=== PATIENT | male | born 1955 | race Caucasian/White ===

== ENCOUNTER 2018-01-20 13:55 | Inpatient (IN) ==
--- NOTE | 2018-01-20 14:37 | Emergency Department Note ---
Disposition Clinical Impression: Osteomyelitis of right foot Qualifiers: Osteomyelitis type: unspecified type Qualified Code(s): M86.9 - Osteomyelitis, unspecified Disposition: Admitted As Inpatient Condition: Fair General Adult HPI - General Chief complaint: ED Skin/Abscess/Foreign Body Stated complaint: Right ankle ulcer Time Seen by Provider: 01/20/18 14:00 - History of Present Illness Pain Scale: 10 - Related Data Home Medications Medication Instructions Recorded Confirmed Amlodipine Besylate [Amlodipine 10 mg PO DAILY 07/11/17 01/20/18 Besylate] Aspirin 81 mg PO DAILY 07/11/17 01/20/18 Atorvastatin Calcium [Atorvastatin 40 mg PO HS 07/11/17 01/20/18 Calcium] Clopidogrel [Plavix] 75 mg PO DAILY 07/11/17 01/20/18 EPINEPHrine [Epipen] 0.3 mg IJ ONCE PRN 07/11/17 01/20/18 Fluticasone/Salmeterol [Advair Hfa 2 puff IH BID 07/11/17 01/20/18 230-21 Mcg Inhaler] Folic Acid [Folic Acid] 1 mg PO DAILY 07/11/17 01/20/18 Gabapentin [Neurontin] 800 mg PO QID 07/11/17 01/20/18 Insulin Human Regular [HumuLIN R] 100 unit IJ TID 07/11/17 01/20/18 Metoprolol XL (24 HR) Succ [Toprol 50 mg PO DAILY 07/11/17 01/20/18 XL] Nitroglycerin [Nitrostat] 0.4 mg SL Q5M PRN 07/11/17 01/20/18 Omeprazole [PriLOSEC] 20 mg PO DAILY 07/11/17 01/20/18 Oxygen 2 l NS HS 07/11/17 01/20/18 Potassium Chloride [Klor-Con 10] 10 meq PO DAILY 07/11/17 01/20/18 Tiotropium [Spiriva] 1 puff IH DAILY 07/11/17 01/20/18 Bisacodyl [Woman's Laxative] 5 - 20 mg PO HS PRN 01/20/18 01/20/18 Empagliflozin [Jardiance] 10 mg PO DAILY 01/20/18 01/20/18 FLUoxetine HCl [PROzac] 60 mg PO DAILY 01/20/18 01/20/18 Furosemide [Lasix] 120 mg PO DAILY 01/20/18 01/20/18 Montelukast [Singulair] 10 mg PO DAILY 01/20/18 01/20/18 Morphine Sulfate/Naltrexone 1 cap PO BID 01/20/18 01/20/18 [Embeda ER 80-3.2 mg Capsule] Pramlintide Acetate [Symlinpen 120] 120 mg IJ TID 01/20/18 01/20/18 Allergies Allergy/AdvReac Type Severity Reaction Status Date / Time dapagliflozin [From [facility]] Allergy Hives Verified 01/20/18 19:08 naphazoline Allergy Hives Verified 01/20/18 19:08 cath DYE Allergy Hives Uncoded 01/20/18 19:08 Past Medical History - Past Medical History Medical history: Reports: arthritis, asthma, COPD, diabetes, GERD, hyperlipidemia, other Surgical history: Reports: appendectomy, cataract, cholecystectomy, coronary bypass (CABG), herniorrhaphy Psychiatric history: Reports: depression - Social History Smoking Status: Never smoker Smokeless Tobacco Status: No Alcohol use: Reports: none Drug use: Reports: none Course Vital Signs Temperature 98.4 F 01/20/18 13:57 Pulse Rate 86 01/20/18 13:57 Respiratory Rate 16 01/20/18 13:57 Blood Pressure 132/69 01/20/18 13:57 O2 Sat by Pulse Oximetry 96 01/20/18 13:57 Temperature 98.4 F 01/20/18 13:58 Pulse Rate 80 01/20/18 19:37 Respiratory Rate 16 01/20/18 20:14 Blood Pressure 135/66 01/20/18 20:14 O2 Sat by Pulse Oximetry 96 01/20/18 19:37 Oxygen Delivery Oxygen Delivery Room Air Medical Decision Making - Lab Data Result diagrams: 01/20/18 14:34 01/20/18 14:34 Lab Results 01/20/18 01/20/18 01/20/18 Range/Units 14:34 14:34 14:34 WBC 9.8 (4.3-11.1) K/mcL RBC 4.31 (4.19-5.50) M/mcL Hgb 11.9 L (12.9-16.9) g/dL Hct 36.8 L (37.5-50.1) % MCV 85.4 (83.0-100.0) fL MCH 27.6 L (28.0-33.3) pg MCHC 32.3 (31.6-35.5) g/dL RDW 15.5 H (11.5-14.5) % Plt Count 284 (140-400) K/mcL MPV 11.2 (9.4-12.4) fL Immature Gran % 0.7 (0-4) % Seg Neutrophils % 61.5 % Lymphocytes % 20.1 % Monocytes % 10.6 % Eosinophils % 6.0 % Basophils % 1.1 % Neutrophils # 6.1 (1.6-8.9) K/mcL Lymphocytes # 2.0 (0.6-4.6) K/mcL Monocytes # 1.0 (0.0-1.3) K/mcL Eosinophils # 0.6 (0.0-0.6) K/mcL Basophils # 0.1 (0.0-0.2) K/mcL ESR >= 130 H (0-10) mm/hr Sodium 133 L (136-145) mEq/L Potassium 3.6 (3.5-5.1) mEq/L Chloride 98 (98-107) mEq/L Carbon Dioxide 25 (23-29) mEq/L BUN 7 L (8-23) mg/dL Creatinine 0.85 (0.70-1.30) mg/dL Est GFR ( Amer) > 60 (> 60) Est GFR (Non-Af Amer) > 60 (> 60) BUN/Creatinine Ratio 8 (6-26) Glucose 110 H (70-105) mg/dL Calculated Osmolality 275 L (280-300) Calcium 8.8 (8.6-10.3) mg/dL Total Bilirubin 0.4 (0.3-1.0) mg/dL AST 19 (13-39) Units/L ALT 14 (7-52) Units/L Alkaline Phosphatase 122 H (34-104) Units/L C-Reactive Protein 11 H (Less than 10) mg/L Serum Total Protein 7.8 (6.4-8.9) g/dL Albumin 3.3 L (3.5-5.7) g/dL Globulin 4.5 H (2.4-3.5) g/dL Albumin/Globulin Ratio 0.7 L (1.1-2.2) Attestation Statement - Attestation Attestation: I examined this patient and my medical decision-making was reviewed with the Resident Physician. I agree with the documented findings, disposition and treatment plan as described except to the extent set forth below. Patient presents to the ED with right ankle wound. Patient sees Dr. Tanner for his Charcot foot. He was placed in a cast to try to straighten the foot and developed an ulcer on his right lateral ankle about 4 weeks ago. Yesterday his home health nurse noticed some green drainage. She called the liner machine operator who recommended him to come to the ED. On examination he has some mild erythema over the lateral mouth the right ankle. I do not appreciate any drainage. There is an area approximately 2 cm that is an open ulceration. Plan. Culture sent. Basic labs including a sedimentation rate with basic x-ray. The patient's workup reveals an osteomyelitis with elevated sedimentation rate. He is given antibiotics. Podiatry has been consult and he is admitted to medicine.
[2018-01-20 14:56] LABS: Basophils # 0.1 K/mcL (0.0-0.2); Basophils % 1.1 %; Eosinophils # 0.6 K/mcL (0.0-0.6); Hematocrit 36.8 % (37.5-50.1); Hemoglobin 11.9 g/dL (12.9-16.9); Immature Granulocytes % 0.7 % (0-4); Lymphocytes % 20.1 %; Mean Corpuscular HGB Conc 32.3 g/dL (31.6-35.5); Mean Corpuscular Hemoglobin 27.6 pg (28.0-33.3); Mean Corpuscular Volume 85.4 fL (83.0-100.0); Mean Platelet Volume 11.2 fL (9.4-12.4); Monocytes % 10.6 %; Neutrophils # 6.1 K/mcL (1.6-8.9); Platelet Count 284 K/mcL (140-400); Red Blood Count 4.31 M/mcL (4.19-5.50); Red Cell Distribution Width 15.5 % (11.5-14.5); Segmented Neutrophils % 61.5 %
[2018-01-20 15:52] LABS: C-Reactive Protein 11 mg/L (Less than 10)
[2018-01-20] MEDS ORDERED: Cefepime HCl 2,000 MG in Water for inj. (sterile) 20 ML 20 ML IVP STA (17:46)
[2018-01-20] MEDS ORDERED: Naloxone 0.4 MG/ML INJ IVP PRN (19:35)
[2018-01-20] MEDS ORDERED: Acetaminophen 325 MG TABLET PO PRN (19:35)
[2018-01-20] MEDS ORDERED: *HR* Dextrose 50 % in Water (Syg) 50 ML SYRINGE IVP PRN (19:39)
[2018-01-20] MEDS ORDERED: D5% in Water 1,000 ML IVC PRN (19:39)
[2018-01-20] MEDS ORDERED: Dextrose Gel 15 GM/37.5 ML TUBE PO PRN ×2 (19:39)
[2018-01-20 19:49] LABS: Alanine Aminotransferase 14 Units/L (7-52); Albumin 3.3 g/dL (3.5-5.7); Albumin/Globulin Ratio 0.7 (1.1-2.2); Alkaline Phosphatase 122 Units/L (34-104); Aspartate Amino Transferase 19 Units/L (13-39); BUN/Creatinine Ratio 8 (6-26); Bilirubin,Total 0.4 mg/dL (0.3-1.0); Blood Urea Nitrogen 7 mg/dL (8-23); Calcium 8.8 mg/dL (8.6-10.3); Carbon Dioxide 25 mEq/L (23-29); Chloride 98 mEq/L (98-107); Globulin 4.5 g/dL (2.4-3.5); Glucose 110 mg/dL (70-105); Osmolality,Calculated 275 (280-300); Potassium 3.6 mEq/L (3.5-5.1); Sodium 133 mEq/L (136-145); Total Protein 7.8 g/dL (6.4-8.9); eGFR For African Americans > 60 (> 60); eGFR For Non-African Americans > 60 (> 60)
--- NOTE | 2018-01-20 19:50 | Internal Med History&Physical ---
Date of Encounter: 01/20/18 Time of Encounter: 19:00 Internal Medicine - H&P: HPI Chief complaint: Right ankle wound Admitted From: Home Plans for Post Hospital Care: Home History of present illness: Mr. Newsome is a 62 year old male presented to ER for right ankle wound. Past medical history is significant for diabetes, diabetic neuropathy, charcot ankle , hypertension, CAD S/P CABG, BROCK on CPAP at home. Patient has diabetic neuropathy. He has found the right ankle wound since 4 weeks ago. The wound is getting worse and the patient feels pain. Patient followed up with podiatry as outpatient. Patient has noticed there is greenish discharge from the ruptured skin. Patient denies fever, chills. He has mild nausea but no vomiting. Patient called his mixer blender and was advised that to come to ER for further evaluation. In the emergency room, MRI shows osteomyelitis and cellulitis. Patient was admitted for further management. Past Med Surg Social Fam HX - Past Medical History Medical history: arthritis, asthma, COPD, diabetes, GERD, hyperlipidemia, other Additional medical history: BROCK. DJD Psychiatric history: depression - Past Surgical History Surgical History: appendectomy, cataract, cholecystectomy, coronary bypass (CABG ), herniorrhaphy Additional surgical history: Knee surgery. - Social History Smoking Status: Never smoker Smokeless Tobacco Status: No Alcohol use: none Drug use: none - Family History Mother History Unknown: Yes Internal Medicine - H&P: Meds Amlodipine Besylate [Amlodipine Besylate] 10 mg PO DAILY 07/11/17 [History] Aspirin 81 mg PO DAILY 07/11/17 [History] Atorvastatin Calcium [Atorvastatin Calcium] 80 mg PO HS 07/11/17 [History] Clopidogrel [Plavix] 75 mg PO DAILY 07/11/17 [History] EPINEPHrine [Epipen] 0.3 mg IJ ONCE PRN 07/11/17 [History] Fluticasone/Salmeterol [Advair Hfa 230-21 Mcg Inhaler] 2 puff IH BID 07/11/17 [ History] Folic Acid [Folic Acid] 1 mg PO DAILY 07/11/17 [History] Gabapentin [Neurontin] 800 mg PO QID 07/11/17 [History] Insulin DETEMIR [Levemir] 30 unit SQ TID 07/11/17 [History] Insulin Human Regular [HumuLIN R] 100 unit IJ TID 07/11/17 [History] Metoprolol XL (24 HR) Succ [Toprol XL] 50 mg PO DAILY 07/11/17 [History] Nitroglycerin [Nitrostat] 0.4 mg SL Q5M PRN 07/11/17 [History] Omeprazole [PriLOSEC] 20 mg PO DAILY 07/11/17 [History] Oxygen 2 l NS HS 07/11/17 [History] Potassium Chloride [Klor-Con 10] 10 meq PO DAILY 07/11/17 [History] Tiotropium [Spiriva] 1 puff IH 0700 07/11/17 [History] 3 Allergy/AdvReac Type Severity Reaction Status Date / Time dapagliflozin [From [facility]] Allergy Hives Verified 01/20/18 19:08 naphazoline Allergy Hives Verified 01/20/18 19:08 cath DYE Allergy Hives Uncoded 01/20/18 19:08 All Systems PM: A 10-system review of systems was performed and is negative for pertinent findings except as documented above in the HPI. - Constitutional Vitals: Temp Pulse Resp BP Pulse Ox 98.4 F 94 16 132/92 96 01/20/18 13:58 01/20/18 15:58 01/20/18 15:58 01/20/18 15:58 01/20/18 15:58 General appearance: Present: A&O X 3, no acute distress, answers questions appropriately - Head Head exam: Present: atraumatic, normocephalic - Eye Eye exam: Present: PERRL, conjuntiva pink, sclera anicteric Pupils: Present: PERRL - Neck Neck exam general surgery: Present: supple, trachea midline. Absent: lymphadenopathy - Respiratory Respiratory exam: Present: CTAB. Absent: accessory muscle use, rales, rhonchi, wheezes - Cardiovascular Cardiovascular exam: Present: RRR, +S1, +S2. Absent: diastolic murmur, gallop, rubs, systolic murmur - GI/Abdominal GI/Abdominal exam: Present: normal bowel sounds, soft, no peritoneal signs. Absent: distended, tenderness - Extremities Exam Extremities exam: Present: warm, radial pulses palpable and symmetrical. Absent : calf tenderness, cyanotic, pedal edema Additional comments: Right ankle wound on the lateral side with surrounding skin redness. - Neurological Exam Neurological exam: Present: CN II-XII intact, oriented X3, no focal deficits. Absent: pronater drift, facial droop, speech deficit - Skin Skin exam: Present: dry, intact Internal Med - H&P Results - Labs CBC & Chem 7: 01/20/18 14:34 01/20/18 14:34 - Assessment and plan (1) Cellulitis Current Visit: Yes Status: Acute Assessment and plan: Patient has cellulitis on right ankle. MRI has been done shows no drainable abscess. Patient reported greenish discharge. - Treat patient with IV vancomycin and cefepime. - Podiatry consult for wound care Qualifiers: Site of cellulitis: extremity Site of cellulitis of extremity: lower extremity Laterality: right Qualified Code(s): L03.115 - Cellulitis of right lower limb (2) Osteomyelitis Current Visit: Yes Status: Acute Assessment and plan: Patient has elevated CRP and ESR. MRI has been done shows osteomyelitis. - Place patient on antibiotic with Vanco and cefepime - Follow up blood culture and wound culture results - Podiatry consult on case Qualifiers: Osteomyelitis type: subacute Osteomyelitis location: ankle Laterality: right Qualified Code(s): M86.271 - Subacute osteomyelitis, right ankle and foot (3) Diabetes mellitus Current Visit: Yes Status: Acute Assessment and plan: Cover patient with basal and sliding scale insulin. Closely monitor glucose level. 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 Closely monitor BP. Qualifiers: Hypertension type: essential hypertension Qualified Code(s): I10 - Essential (primary) hypertension (5) CAD (coronary artery disease) Current Visit: Yes Status: Acute Assessment and plan: Continue home medications aspirin, Plavix, beta aubree, and statin. NTG sublingual when necessary for chest pain Qualifiers: Coronary Disease-Associated Artery/Lesion type: bypass graft [place] vs. transplanted heart: [place] heart Associated angina: without angina Qualified Code(s): I25.810 - Atherosclerosis of coronary artery bypass graft(s) without angina pectoris (6) Asthma Current Visit: Yes Status: Acute Assessment and plan: Patient has no wheezing at this point. Continue home medication Advair discus. Qualifiers: Asthma severity: mild Asthma persistence: intermittent Asthma complication type: with acute exacerbation Qualified Code(s): J45.21 - Mild intermittent asthma with (acute) exacerbation (7) BROCK (obstructive sleep apnea) Current Visit: Yes Status: Acute Assessment and plan: Continue CPAP during night (8) DVT prophylaxis Current Visit: Yes Status: Acute Assessment and plan: Heparin subcutaneously - Time Spent With Patient Total time spent is greater than 50% in coordination of care (as documented) at patient's floor/unit and/or counseling patient: 40 minutes Greater than 35 minutes
--- NOTE | 2018-01-20 20:13 | Emergency Department Note ---
Disposition Clinical Impression: Osteomyelitis of right foot Qualifiers: Osteomyelitis type: unspecified type Qualified Code(s): M86.9 - Osteomyelitis, unspecified Disposition: Admitted As Inpatient Condition: Fair Time of Disposition: 20:14 General Adult HPI - General Chief complaint: ED Skin/Abscess/Foreign Body Stated complaint: Right ankle ulcer Time Seen by Provider: 01/20/18 14:00 Source: patient Mode of arrival: wheelchair Limitations: no limitations Nursing Notes Reviewed: Yes Vital Signs Reviewed: Yes - History of Present Illness HPI Narrative: Patient is a 62-year-old male with a past medical history of Charcot disease of the foot presents for evaluation of worsening ulcer with discharge. The patient states that the ulcer began 4 weeks ago due to him wearing a brace for his disease. He states that last night the ulcer that he has on the lateral aspect of his right ankle began having a green discharge. States that his home health nurse reported this to his computer specialist and they recommended he come in for evaluation in the emergency department. The patient states that there is also surrounding redness to his ankle that has been worsening over the past 2 days. Pain Scale: 10 - Related Data Home Medications Medication Instructions Recorded Confirmed Amlodipine Besylate [Amlodipine 10 mg PO DAILY 07/11/17 07/11/17 Besylate] Aspirin 81 mg PO DAILY 07/11/17 07/11/17 Atorvastatin Calcium [Atorvastatin 80 mg PO HS 07/11/17 07/11/17 Calcium] Clopidogrel [Plavix] 75 mg PO DAILY 07/11/17 07/11/17 EPINEPHrine [Epipen] 0.3 mg IJ ONCE PRN 07/11/17 07/11/17 Fluticasone/Salmeterol [Advair Hfa 2 puff IH BID 07/11/17 07/11/17 230-21 Mcg Inhaler] Folic Acid [Folic Acid] 1 mg PO DAILY 07/11/17 07/11/17 Gabapentin [Neurontin] 800 mg PO QID 07/11/17 07/11/17 Insulin DETEMIR [Levemir] 30 unit SQ TID 07/11/17 Insulin Human Regular [HumuLIN R] 100 unit IJ TID 07/11/17 Metoprolol XL (24 HR) Succ [Toprol 50 mg PO DAILY 07/11/17 07/11/17 XL] Nitroglycerin [Nitrostat] 0.4 mg SL Q5M PRN 07/11/17 07/11/17 Omeprazole [PriLOSEC] 20 mg PO DAILY 07/11/17 07/11/17 Oxygen 2 l NS HS 07/11/17 07/11/17 Potassium Chloride [Klor-Con 10] 10 meq PO DAILY 07/11/17 07/11/17 Tiotropium [Spiriva] 1 puff IH 0700 07/11/17 07/11/17 Allergies Allergy/AdvReac Type Severity Reaction Status Date / Time dapagliflozin [From [facility]] Allergy Hives Verified 01/20/18 19:08 naphazoline Allergy Hives Verified 01/20/18 19:08 cath DYE Allergy Hives Uncoded 01/20/18 19:08 All systems ED: reviewed and negative except as stated. Review of Systems: As Per HPI Constitutional: Denies: fever, chills Gastrointestinal: Reports: nausea. Denies: abdominal pain, vomiting Integumentary: Reports: rash, lesions Past Medical History - Past Medical History Attestation: Yes The following information was validated with the patient. Medical history: Reports: arthritis, asthma, COPD, diabetes, GERD, hyperlipidemia, other Surgical history: Reports: appendectomy, cataract, cholecystectomy, coronary bypass (CABG), herniorrhaphy Psychiatric history: Reports: depression - Social History Smoking Status: Never smoker Smokeless Tobacco Status: No Alcohol use: Reports: none Drug use: Reports: none Physical Exam CONSTITUTIONAL: Alert and oriented X3, well-nourished, well appearing, in no apparent distress HEAD: Normocephalic; atraumatic. EYES: PERRL, no scleral icterus. NOSE: The nose is normal in appearance without rhinorrhea RESP: Normal chest excursion with respiration; breath sounds clear and equal bilaterally; no wheezes, rhonchi, or rales CARD: Regular rhythm, without murmurs, rub or gallop ABD: Non-distended; non-tender, soft,without rigidity, rebound or guarding SKIN: Normal for age and race; warm and dry; no apparent lesions. Patient has a 2 x 3 cm ulcerated lesion on his right lateral ankle below the malleolus. There is no discharge present at this time on exam. Does not directly appear to be infected, however he does have a surrounding erythema goes from the lateral aspect of the ankle to the medial aspect. No crepitance. - General Limitations: no limitations General appearance: alert Course Course Narrative: This is a patient underwent a foot x-ray which was not definitive for cellulitis , so MRI was ordered which was positive for osteomyelitis. The patient did have elevated inflammatory markers without a significant leukocytosis. The patient's case was discussed with Dr. Mccormack, the computer specialist on-call, and he agreed with the current plan of IV antibiotics and admission given the patient' s new findings of osteomyelitis. Also requested blood cultures be drawn. Discussed that we have already sent blood cultures of the foot. He agrees with this plan and states he will see the patient in the morning. Vital Signs Temperature 98.4 F 01/20/18 13:57 Pulse Rate 86 01/20/18 13:57 Respiratory Rate 16 01/20/18 13:57 Blood Pressure 132/69 01/20/18 13:57 O2 Sat by Pulse Oximetry 96 01/20/18 13:57 Temperature 98.4 F 01/20/18 13:58 Pulse Rate 80 01/20/18 19:37 Respiratory Rate 16 01/20/18 19:37 Blood Pressure 137/69 01/20/18 19:37 O2 Sat by Pulse Oximetry 96 01/20/18 19:37 Oxygen Delivery Oxygen Delivery Room Air Medical Decision Making - Medical Records Medical records reviewed: Yes I reviewed the patient's medical records. - Lab Data Lab results reviewed: Yes I reviewed the patient's lab results. Result diagrams: 01/20/18 14:34 01/20/18 14:34 Lab Results 01/20/18 01/20/18 01/20/18 Range/Units 14:34 14:34 14:34 WBC 9.8 (4.3-11.1) K/mcL RBC 4.31 (4.19-5.50) M/mcL Hgb 11.9 L (12.9-16.9) g/dL Hct 36.8 L (37.5-50.1) % MCV 85.4 (83.0-100.0) fL MCH 27.6 L (28.0-33.3) pg MCHC 32.3 (31.6-35.5) g/dL RDW 15.5 H (11.5-14.5) % Plt Count 284 (140-400) K/mcL MPV 11.2 (9.4-12.4) fL Immature Gran % 0.7 (0-4) % Seg Neutrophils % 61.5 % Lymphocytes % 20.1 % Monocytes % 10.6 % Eosinophils % 6.0 % Basophils % 1.1 % Neutrophils # 6.1 (1.6-8.9) K/mcL Lymphocytes # 2.0 (0.6-4.6) K/mcL Monocytes # 1.0 (0.0-1.3) K/mcL Eosinophils # 0.6 (0.0-0.6) K/mcL Basophils # 0.1 (0.0-0.2) K/mcL ESR >= 130 H (0-10) mm/hr Sodium 133 L (136-145) mEq/L Potassium 3.6 (3.5-5.1) mEq/L Chloride 98 (98-107) mEq/L Carbon Dioxide 25 (23-29) mEq/L BUN 7 L (8-23) mg/dL Creatinine 0.85 (0.70-1.30) mg/dL Est GFR ( Amer) > 60 (> 60) Est GFR (Non-Af Amer) > 60 (> 60) BUN/Creatinine Ratio 8 (6-26) Glucose 110 H (70-105) mg/dL Calculated Osmolality 275 L (280-300) Calcium 8.8 (8.6-10.3) mg/dL Total Bilirubin 0.4 (0.3-1.0) mg/dL AST 19 (13-39) Units/L ALT 14 (7-52) Units/L Alkaline Phosphatase 122 H (34-104) Units/L C-Reactive Protein 11 H (Less than 10) mg/L Serum Total Protein 7.8 (6.4-8.9) g/dL Albumin 3.3 L (3.5-5.7) g/dL Globulin 4.5 H (2.4-3.5) g/dL Albumin/Globulin Ratio 0.7 L (1.1-2.2) - Radiology Data Radiology results reviewed: Yes I reviewed the patient's radiology results. Ankle X-Ray 01/20/18 14:26 IMPRESSION: Further mid and hindfoot collapse, with increased collapse of the talus with respect to the ankle joint, and marked widening of the ankle mortise secondary to this. There is also lucent change seen in the region of the cuboid. This could be related to progression of Charcot joint, though an underlying fracture or osteomyelitis in the midfoot, as well as involving the anterior aspect of the calcaneus or talus cannot be excluded. This would be best assessed with MR imaging. D/ / Walker Bernal MD / Walker Bernal MD Interpreting Provider: Walker Bernal MD Ankle MRI 01/20/18 15:48 IMPRESSION: Severe bony destruction and disorganization with loss of marrow signal and loss of corticomedullary differentiation throughout the talus, calcaneus, navicular, cuboid, and cuneiforms. Findings are compatible with Charcot joint with superimposed osteomyelitis. Overlying subcutaneous soft tissue edema without obvious drainable fluid collection. D/ / Mauricio Delacruz MD / Mauricio Delacruz MD Interpreting Provider: Mauricio Delacruz MD
[2018-01-20] MEDS ORDERED: Nitroglycerin 0.4 MG TAB.SUBL SL PRN (20:45)
[2018-01-20] MEDS ORDERED: Budesonide/Formoterol 160/4.5 MDI IH SCH (22:00)
[2018-01-20] MEDS: Insulin DETEMIR 100 UNIT/ML X5UNITS SQ SCH (22:34)
[2018-01-20] MEDS: Insulin LISPRO 300 UNITS/3 ML VIAL SQ SCH (22:35)
[2018-01-21] MEDS ORDERED: Cefepime HCl 2,000 MG in Water for inj. (sterile) 20 ML 20 ML IVP SCH
[2018-01-21 01:23] LABS: Basophils # 0.1 K/mcL (0.0-0.2); Basophils % 1.3 %; Eosinophils # 0.5 K/mcL (0.0-0.6); Eosinophils % 5.7 %; Hematocrit 37.9 % (37.5-50.1); Hemoglobin 12.2 g/dL (12.9-16.9); Immature Granulocytes % 0.7 % (0-4); Lymphocytes # 1.4 K/mcL (0.6-4.6); Lymphocytes % 15.6 %; Mean Corpuscular HGB Conc 32.2 g/dL (31.6-35.5); Mean Corpuscular Hemoglobin 27.4 pg (28.0-33.3); Mean Platelet Volume 10.8 fL (9.4-12.4); Monocytes # 0.8 K/mcL (0.0-1.3); Monocytes % 8.8 %; Neutrophils # 6.2 K/mcL (1.6-8.9); Platelet Count 266 K/mcL (140-400); Red Blood Count 4.46 M/mcL (4.19-5.50); Red Cell Distribution Width 15.5 % (11.5-14.5); Segmented Neutrophils % 67.9 %
[2018-01-21 01:39] LABS: BUN/Creatinine Ratio 11 (6-26); Blood Urea Nitrogen 8 mg/dL (8-23); Calcium 8.7 mg/dL (8.6-10.3); Carbon Dioxide 24 mEq/L (23-29); Chloride 101 mEq/L (98-107); Glucose 139 mg/dL (70-105); Osmolality,Calculated 279 (280-300); Potassium 3.9 mEq/L (3.5-5.1); Sodium 134 mEq/L (136-145); eGFR For African Americans > 60 (> 60); eGFR For Non-African Americans > 60 (> 60)
[2018-01-21] MEDS: Cefepime HCl 2,000 MG in Water for inj. (sterile) 20 ML 20 ML IVP SCH ×3 (02:53→17:53)
[2018-01-21] MEDS: *HR* Heparin 5,000 UNIT/ML VIAL SQ SCH ×2 (05:40→17:55)
[2018-01-21] MEDS ORDERED: Furosemide 40 MG TABLET PO SCH (09:00)
[2018-01-21] MEDS: Lactobacillus 1 EACH CAP.SPRINK PO SCH (09:21)
[2018-01-21] MEDS: Gabapentin 400 MG CAPSULE PO SCH ×4 (09:21→20:25)
[2018-01-21] MEDS: Folic Acid 1 MG TABLET PO SCH (09:21)
[2018-01-21] MEDS: Metoprolol XL (24 HR) Succ 50 MG TAB.ER.24H PO SCH (09:21)
[2018-01-21] MEDS: Insulin LISPRO 300 UNITS/3 ML VIAL SQ SCH ×4 (09:21→20:29)
[2018-01-21] MEDS: Aspirin 81 MG TAB.CHEW PO SCH (09:22)
[2018-01-21] MEDS: amLODIPine 5 MG TABLET PO SCH (09:22)
[2018-01-21] MEDS: Budesonide/Formoterol 160/4.5 MDI IH SCH ×2 (10:48→20:04)
--- NOTE | 2018-01-21 11:09 | Podiatry Progress Note ---
Date of Encounter: 01/21/18 Time of Encounter: 11:08 - Assessment and Plan (1) Cellulitis Current Visit: Yes Status: Acute Assessment: #1 Local cellulitis of the right foot associated with superficial ulceration lateral ankle #2 active Charcot arthropathy Eichholz class I #3 diabetes with marginal control Assessment: #1 Charcot neuroarthropathy active Eichholz class I with completely unstable ankle #2 localized cellulitis #3 graded with present about therapy local wound care compression elevation and strict nonweightbearing. Long discussion with the risks associated with Charcot arthropathy including limb loss #4 complete wound care daily. #5 continue intravenous antibiotics until Dr. Harrington can evaluate the patient in 48 hours Qualifiers: Site of cellulitis: extremity Site of cellulitis of extremity: lower extremity Laterality: right Qualified Code(s): L03.115 - Cellulitis of right lower limb Subjective Principal diagnosis: Ulceration lateral right ankle with localized cellulitis. Interval history: 62-year-old male known to me with history of Charcot arthropathy of the ankle completely unstable. Patient with recent development of ulcer lateral aspect of his right ankle last several weeks without penetration of the dermis. No fluctuance. Patient with no shortness of breath chest pain nausea vomiting, fever chills. No leukocytosis. MR concern for possible osteomyelitis. Changes consistent with advanced Charcot arthropathy versus infectious process which is unlikely since her is no direct extension clinically. Objective - Vital Signs Vital Signs: Vital Signs Temp Pulse Resp BP Pulse Ox 01/21/18 10:50 16 97 01/21/18 07:18 98.6 F 89 16 146/73 97 01/21/18 04:02 98.1 F 80 16 119/67 99 01/21/18 03:38 15 98 01/20/18 23:30 9 99 01/20/18 23:17 97.9 F 87 16 126/66 98 01/20/18 21:13 98.6 F 80 16 140/69 96 01/20/18 20:14 16 135/66 Intake and Output 01/20/18 01/21/18 01/21/18 23:59 07:59 15:59 Intake Total 1280 / 1280 Output Total 1100 / 1100 600 / 600 1300 / 1300 Balance -1080 / -1080 -580 / -580 - -20 Intake: IV Fluids Maxipime 2,000 MG In Water for inj. (sterile) 20 ML @ 300 mls/ hr IVP Q8H [facility] Rx#:[id number] Oral 1280 / 1280 Output: Urine 1100 / 1100 600 / 600 1300 / 1300 Other: Meal Breakfast Percent of Meal Consumed 50% # Voids 1 # Bowel Movements 2 Weight 138.2 kg Blood Glucose* 103 108 Patient Weight 01/21/18 23:59 Weight 138.2 kg - Exam Exam: Ulceration measuring approximately 3 cm x 3 cm x 0.2 cm deep. A percent granulation tissue 20% fibrin. No undermining no sinus tract or tunneling. No fluctuance. Periwound erythema with spreading cellulitis resolving. - Radiology X-Rays: image reviewed MRIs: image reviewed - Lab Result Diagrams: 01/21/18 01:08 01/21/18 01:08 Labs: Abnormal lab results Hgb 12.2 g/dL (12.9-16.9) L 01/21/18 01:08 MCH 27.4 pg (28.0-33.3) L 01/21/18 01:08 RDW 15.5 % (11.5-14.5) H 01/21/18 01:08 ESR >= 130 mm/hr (0-10) H 01/20/18 14:34 Sodium 134 mEq/L (136-145) L 01/21/18 01:08 Glucose 139 mg/dL (70-105) H 01/21/18 01:08 Calculated Osmolality 279 (280-300) L 01/21/18 01:08 Alkaline Phosphatase 122 Units/L (34-104) H 01/20/18 14:34 C-Reactive Protein 11 mg/L (Less than 10) H 01/20/18 14:34 Albumin 3.3 g/dL (3.5-5.7) L 01/20/18 14:34 Globulin 4.5 g/dL (2.4-3.5) H 01/20/18 14:34 Albumin/Globulin Ratio 0.7 (1.1-2.2) L 01/20/18 14:34 Consult Discharge Plan - Plan Referrals: Myron Henderson [Primary Care Provider] -
--- NOTE | 2018-01-21 15:52 | Internal Med Progress Note ---
Date of Encounter: 01/21/18 Time of Encounter: 15:48 - Assessment and plan (1) Osteomyelitis of right foot Current Visit: Yes Status: Acute Assessment and plan: MRI showed right foot osteomyelitis, on IV vancomycin and cefepime podiatriast is following Qualifiers: Osteomyelitis type: subacute Qualified Code(s): M86.271 - Subacute osteomyelitis, right ankle and foot (2) Cellulitis Current Visit: Yes Status: Acute Assessment and plan: continue IV vancomycin and cefepine Qualifiers: Site of cellulitis: extremity Site of cellulitis of extremity: lower extremity Laterality: right Qualified Code(s): L03.115 - Cellulitis of right lower limb (3) Diabetes mellitus Current Visit: Yes Status: Acute Assessment and plan: continue basal insulin and SSI Qualifiers: Diabetes mellitus type: type 2 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 insulin use: with long-term use Diabetes mellitus complication status: with neurologic complications Diabetes mellitus complication detail: with polyneuropathy Qualified Code(s): E11.42 - Type 2 diabetes mellitus with diabetic polyneuropathy; Z79.4 - 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 transplanted heart: [place] heart Associated angina: without angina Qualified Code(s): I25.810 - Atherosclerosis of coronary artery bypass graft(s) without angina pectoris (6) Asthma Current Visit: Yes Status: Chronic Assessment and plan: stable no wheezing Qualifiers: Asthma severity: mild Asthma persistence: intermittent Asthma complication type: with acute exacerbation Qualified Code(s): J45.21 - Mild intermittent asthma with (acute) exacerbation (7) BROCK (obstructive sleep apnea) Current Visit: Yes Status: Acute (8) DVT prophylaxis Current Visit: Yes Status: Acute Assessment and plan: heparin Sc - Time Spent With Patient Total time spent is greater than 50% in coordination of care (as documented) at patient's floor/unit and/or counseling patient: 25 - 35 minutes - Subjective Interval history: Mr. Newsome is a 62 year old male presented to ER for right ankle wound. Past medical history is significant for diabetes, diabetic neuropathy, charcot ankle , hypertension, CAD S/P CABG, BROCK on CPAP at home. Patient has diabetic neuropathy. He has found the right ankle wound since 4 weeks ago. The wound is getting worse and the patient feels pain. Patient followed up with podiatry as outpatient. , MRI shows osteomyelitis and cellulitis. Patient was admitted for further management. patient is doing ok, pain is well controlled, afebrile, right foot is still very swelling. 1.right ankle Charcot joint with superimposed osteomyelitis and cellulitis, continue vancomycin and cefepime, podiatry is on board 2. DM type 2 - Constitutional Vitals: Temp Pulse Resp BP Pulse Ox 97.9 F 85 16 146/72 95 01/21/18 11:20 01/21/18 11:20 01/21/18 11:20 01/21/18 11:20 01/21/18 11:20 General appearance: Present: A&O X 3, no acute distress, answers questions appropriately Exam: CONSTITUTIONAL: patient appears as an age appropriate male in no acute distress. EYES Clear sclerae, bilateral pupils are equal, reactive to light. EMOI. RESPIRATORY: No accessory muscle use, bilateral clear to auscultation, no wheezing, no crackles/rales. CARDIOVASCULAR: Regular heart rate, normal S1 and S2, no murmurs GASTROINTESTINAL: bowel sounds present, soft, no tenderness. MUSCULOSKELETAL: Joints in normal range of motion, no clubbing, ++ edema, no cyanosis. Bilateral peripheral pulses 2+. NEUROLOGIC: CN II to XII are grossly intact, no focal neurological deficit. Internal Medicine: Result - Labs CBC & Chem 7: 01/21/18 01:08 01/21/18 01:08 Labs: Short CBC 01/21/18 Range/Units 01:08 WBC 9.1 (4.3-11.1) K/mcL Hgb 12.2 L (12.9-16.9) g/dL Hct 37.9 (37.5-50.1) % Plt Count 266 (140-400) K/mcL Neutrophils # 6.2 (1.6-8.9) K/mcL BMP 01/21/18 01:08 Sodium 134 L Potassium 3.9 Chloride 101 Carbon Dioxide 24 BUN 8 Creatinine 0.75 Glucose 139 H Calcium 8.7 Consult Discharge Plan - Plan Referrals: Myron Henderson [Primary Care Provider] -
[2018-01-21] MEDS: Insulin DETEMIR 100 UNIT/ML X5UNITS SQ SCH (20:25)
[2018-01-21] MEDS: NALTREXONE PO SCH (22:24)
[2018-01-21] MEDS: MORPHINE PO SCH (22:24)
[2018-01-22] MEDS: Cefepime HCl 2,000 MG in Water for inj. (sterile) 20 ML 20 ML IVP SCH ×3 (02:10→16:32)
[2018-01-22] MEDS: *HR* Heparin 5,000 UNIT/ML VIAL SQ SCH ×2 (06:26→16:33)
[2018-01-22] MEDS: Budesonide/Formoterol 160/4.5 MDI IH SCH ×2 (07:39→20:28)
[2018-01-22] MEDS: Insulin LISPRO 300 UNITS/3 ML VIAL SQ SCH ×4 (08:52→20:37)
[2018-01-22] MEDS: Gabapentin 400 MG CAPSULE PO SCH ×4 (09:01→20:35)
[2018-01-22] MEDS: Metoprolol XL (24 HR) Succ 50 MG TAB.ER.24H PO SCH (09:01)
[2018-01-22] MEDS: Folic Acid 1 MG TABLET PO SCH (09:01)
[2018-01-22] MEDS: Lactobacillus 1 EACH CAP.SPRINK PO SCH (09:02)
[2018-01-22] MEDS: Aspirin 81 MG TAB.CHEW PO SCH (09:02)
[2018-01-22] MEDS: amLODIPine 5 MG TABLET PO SCH (09:02)
[2018-01-22] MEDS: NALTREXONE PO SCH ×2 (10:02→20:36)
[2018-01-22] MEDS: MORPHINE PO SCH ×2 (10:02→20:36)
--- NOTE | 2018-01-22 14:48 | Internal Med Progress Note ---
Date of Encounter: 01/22/18 Time of Encounter: 14:46 - Assessment and plan (1) Osteomyelitis of right foot Current Visit: Yes Status: Acute Assessment and plan: MRI showed right foot osteomyelitis, on IV vancomycin and cefepime marketing operations assistant is following Qualifiers: Osteomyelitis type: subacute Qualified Code(s): M86.271 - Subacute osteomyelitis, right ankle and foot (2) Cellulitis Current Visit: Yes Status: Acute Qualifiers: Site of cellulitis: extremity Site of cellulitis of extremity: lower extremity Laterality: right Qualified Code(s): L03.115 - Cellulitis of right lower limb (3) Diabetes mellitus Current Visit: Yes Status: Acute Assessment and plan: continue basal insulin and SSI Qualifiers: Diabetes mellitus type: type 2 Diabetes mellitus 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 home 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 transplanted heart: [place] heart Associated angina: without angina Qualified Code(s): I25.810 - Atherosclerosis of coronary artery bypass graft(s) without angina pectoris (6) Asthma Current Visit: Yes Status: Chronic Qualifiers: Asthma severity: mild Asthma persistence: intermittent Asthma complication type: with acute exacerbation Qualified Code(s): J45.21 - Mild intermittent asthma with (acute) exacerbation (7) BROCK (obstructive sleep apnea) Current Visit: Yes Status: Acute (8) DVT prophylaxis Current Visit: Yes Status: Acute (9) Morbid obesity Current Visit: Yes Status: Acute - Time Spent With Patient Total time spent is greater than 50% in coordination of care (as documented) at patient's floor/unit and/or counseling patient: - Subjective Interval history: Mr. Newsome is a 62 year old male presented to ER for right ankle wound. Past medical history is significant for diabetes, diabetic neuropathy, charcot ankle , hypertension, CAD S/P CABG, BROCK on CPAP at home. Patient has diabetic neuropathy. He has found the right ankle wound since 4 weeks ago. The wound is getting worse and the patient feels pain. Patient followed up with podiatry as outpatient. , MRI shows osteomyelitis and cellulitis. Patient was admitted for further management. patient is doing well, pain and swelling of right foot improved, afebrile. 1.right ankle Charcot joint with superimposed osteomyelitis and cellulitis, continue vancomycin and cefepime, podiatry is on board 2. DM type 2 - Constitutional Vitals: Temp Pulse Resp BP Pulse Ox 98.2 F 73 17 124/72 96 01/22/18 11:22 01/22/18 11:22 01/22/18 11:22 01/22/18 11:22 01/22/18 11:22 General appearance: Present: A&O X 3, no acute distress, answers questions appropriately Exam: CONSTITUTIONAL: patient appears as an age appropriate male in no acute distress. EYES Clear sclerae, bilateral pupils are equal, reactive to light. EMOI. RESPIRATORY: No accessory muscle use, bilateral clear to auscultation, no wheezing, no crackles/rales. CARDIOVASCULAR: Regular heart rate, normal S1 and S2, no murmurs GASTROINTESTINAL: bowel sounds present, soft, no tenderness. MUSCULOSKELETAL: Joints in normal range of motion, no clubbing, +edema, no cyanosis. Bilateral peripheral pulses 2+. NEUROLOGIC: CN II to XII are grossly intact, no focal neurological deficit. Internal Medicine: Result - Labs CBC & Chem 7: 01/21/18 01:08 01/21/18 01:08 Consult Discharge Plan - Plan Referrals: Myron Henderson [Primary Care Provider] -
[2018-01-22] MEDS: Insulin DETEMIR 100 UNIT/ML X5UNITS SQ SCH (20:36)
[2018-01-23] MEDS: Cefepime HCl 2,000 MG in Water for inj. (sterile) 20 ML 20 ML IVP SCH ×3 (02:18→17:38)
[2018-01-23 05:52] LABS: Basophils # 0.1 K/mcL (0.0-0.2); Basophils % 1.6 %; Eosinophils # 0.7 K/mcL (0.0-0.6); Eosinophils % 9.3 %; Hematocrit 36.9 % (37.5-50.1); Hemoglobin 11.6 g/dL (12.9-16.9); Immature Granulocytes % 0.4 % (0-4); Lymphocytes # 1.7 K/mcL (0.6-4.6); Lymphocytes % 20.9 %; Mean Corpuscular HGB Conc 31.4 g/dL (31.6-35.5); Mean Corpuscular Hemoglobin 26.5 pg (28.0-33.3); Mean Corpuscular Volume 84.4 fL (83.0-100.0); Monocytes # 0.9 K/mcL (0.0-1.3); Monocytes % 11.4 %; Neutrophils # 4.5 K/mcL (1.6-8.9); Platelet Count 271 K/mcL (140-400); Red Blood Count 4.37 M/mcL (4.19-5.50); Red Cell Distribution Width 15.9 % (11.5-14.5); Segmented Neutrophils % 56.4 %
[2018-01-23] MEDS: *HR* Heparin 5,000 UNIT/ML VIAL SQ SCH ×2 (05:54→17:38)
[2018-01-23 06:01] LABS: BUN/Creatinine Ratio 14 (6-26); Blood Urea Nitrogen 8 mg/dL (8-23); Calcium 8.6 mg/dL (8.6-10.3); Carbon Dioxide 26 mEq/L (23-29); Chloride 106 mEq/L (98-107); Glucose 121 mg/dL (70-105); Osmolality,Calculated 284 (280-300); Potassium 3.8 mEq/L (3.5-5.1); Sodium 137 mEq/L (136-145); eGFR For African Americans > 60 (> 60); eGFR For Non-African Americans > 60 (> 60)
[2018-01-23] MEDS: Budesonide/Formoterol 160/4.5 MDI IH SCH ×2 (07:53→22:43)
--- NOTE | 2018-01-23 08:16 | Podiatry Progress Note ---
Date of Encounter: 01/23/18 Time of Encounter: 08:14 - Assessment and Plan (1) Cellulitis Current Visit: Yes Status: Acute Assessment: #1 Local cellulitis of the right foot associated with superficial ulceration lateral ankle #2 active Charcot arthropathy Eichholz class I #3 diabetes with marginal control Assessment: #1 Charcot neuroarthropathy active Eichholz class I with completely unstable ankle #2 localized cellulitis #3 graded with present about therapy local wound care compression elevation and strict nonweightbearing. Long discussion with the risks associated with Charcot arthropathy including limb loss #4 complete wound care daily. #5 continue intravenous antibiotics until Dr. Harrington can evaluate the patient in 48 hours Assessment: #1 local cellulitis resolving the right ankle and foot. #2 Charcot arthropathy Eichholz class I Plan: #1 continue present intravenous antibiotics local wound care elevation compression #[address] Harrington evaluation for surgical intervention versus conservative compression therapy/casting, with strict nonweightbearing. Patient may need placement. Qualifiers: Site of cellulitis: extremity Site of cellulitis of extremity: lower extremity Laterality: right Qualified Code(s): L03.115 - Cellulitis of right lower limb Subjective Principal diagnosis: Ulceration lateral right ankle with localized cellulitis. Interval history: Patient with ongoing Charcot arthropathy active with right ankle with superficial wound over the lateral aspect of the malleolus. We see dramatic decrease the overall edema both lower extremities since the patient has been sedentary with legs elevated and getting appropriate antibiotics. We will await the opinion of Dr. Harrington as to the timing of possible reconstruction versus conservative measures. We will await his opinion. Objective - Vital Signs Vital Signs: Vital Signs Temp Pulse Resp BP Pulse Ox 01/23/18 07:53 15 95 01/23/18 06:30 97.7 F 86 15 138/79 95 01/23/18 04:18 12 94 01/23/18 00:34 97.9 F 84 14 136/75 94 01/23/18 00:01 17 100 01/22/18 20:31 16 93 01/22/18 19:01 98.9 F 70 16 117/77 98 01/22/18 16:51 67 116/67 01/22/18 15:40 98.3 F 82 18 100/49 92 01/22/18 11:22 98.2 F 73 17 124/72 96 Intake and Output 01/22/18 01/23/18 01/23/18 23:59 07:59 15:59 Intake Total 1020 / 1020 600 / 600 Output Total 1999 1470 / 1470 Balance -980 / -980 -870 / -870 Intake: IV Fluids Maxipime 2,000 MG In Water for inj. (sterile) 20 ML @ 300 mls/ hr IVP Q8H JIMMY Rx#:[id number] Oral 1000 / 1000 600 / 600 Output: Urine 1999 1470 / 1470 Other: # Voids 1 1 Weight 134.5 kg Blood Glucose* 186 108 - Exam Exam: Superficial ulceration the lateral aspect of the right ankle without evidence of undermining sinus tract or tunneling. No spreading cellulitis. Periwound erythema reducing dramatically. Wound is clean without clinical evidence of fluctuance necrosis ascending cellulitis or lymphangitis. We do observe obvious subluxation of the right ankle and collapse of the hindfoot only clinically but from radiographic standpoint. Incision: Present: healing, clean and dry - Lab Result Diagrams: 01/23/18 05:14 01/23/18 05:14 Labs: Abnormal lab results Hgb 11.6 g/dL (12.9-16.9) L 01/23/18 05:14 Hct 36.9 % (37.5-50.1) L 01/23/18 05:14 MCH 26.5 pg (28.0-33.3) L 01/23/18 05:14 MCHC 31.4 g/dL (31.6-35.5) L 01/23/18 05:14 RDW 15.9 % (11.5-14.5) H 01/23/18 05:14 Eosinophils # 0.7 K/mcL (0.0-0.6) H 01/23/18 05:14 ESR >= 130 mm/hr (0-10) H 01/20/18 14:34 Creatinine 0.58 mg/dL (0.70-1.30) L 01/23/18 05:14 Glucose 121 mg/dL (70-105) H 01/23/18 05:14 POC Glucose 186 mg/dL (70-99) H 01/22/18 19:41 Alkaline Phosphatase 122 Units/L (34-104) H 01/20/18 14:34 C-Reactive Protein 11 mg/L (Less than 10) H 01/20/18 14:34 Albumin 3.3 g/dL (3.5-5.7) L 01/20/18 14:34 Globulin 4.5 g/dL (2.4-3.5) H 01/20/18 14:34 Albumin/Globulin Ratio 0.7 (1.1-2.2) L 01/20/18 14:34 Vancomycin Trough 14 mcg/mL (5-10) H 01/22/18 06:45 Consult Discharge Plan - Plan Referrals: Myron Henderson [Primary Care Provider] -
[2018-01-23] MEDS: Insulin LISPRO 300 UNITS/3 ML VIAL SQ SCH ×4 (08:24→21:36)
[2018-01-23] MEDS: Gabapentin 400 MG CAPSULE PO SCH ×4 (09:53→21:35)
[2018-01-23] MEDS: Folic Acid 1 MG TABLET PO SCH (09:53)
[2018-01-23] MEDS: amLODIPine 5 MG TABLET PO SCH (09:53)
[2018-01-23] MEDS: Lactobacillus 1 EACH CAP.SPRINK PO SCH (09:53)
[2018-01-23] MEDS: NALTREXONE PO SCH ×2 (09:53→21:35)
[2018-01-23] MEDS: Metoprolol XL (24 HR) Succ 50 MG TAB.ER.24H PO SCH (09:53)
[2018-01-23] MEDS: Aspirin 81 MG TAB.CHEW PO SCH (09:53)
[2018-01-23] MEDS: MORPHINE PO SCH ×2 (09:53→21:35)
--- NOTE | 2018-01-23 10:28 | Internal Med Progress Note ---
Date of Encounter: 01/23/18 Time of Encounter: 10:25 - Assessment and plan (1) Osteomyelitis Current Visit: Yes Status: Acute Assessment and plan: Patient has elevated CRP and ESR. MRI has been done shows osteomyelitis. Wound cultures growing MRSA Continue antibiotics with Vanco and cefepime. Podiatry following and plan for possible debridement. ID consulted and recs appreciated Qualifiers: Osteomyelitis type: subacute Osteomyelitis location: ankle Laterality: right Qualified Code(s): M86.271 - Subacute osteomyelitis, right ankle and foot (2) Cellulitis Current Visit: Yes Status: Acute Assessment and plan: Patient has cellulitis on right ankle. MRI has been done shows no drainable abscess. Patient reported greenish discharge. - Treat patient with IV vancomycin and cefepime. - Podiatry consult for wound care Qualifiers: Site of cellulitis: extremity Site of cellulitis of extremity: lower extremity Laterality: right Qualified Code(s): L03.115 - Cellulitis of right lower limb (3) Diabetes mellitus Current Visit: Yes Status: Acute Assessment and plan: Cover patient with basal and sliding scale insulin. Closely monitor glucose level. 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 Closely monitor BP. Qualifiers: Hypertension type: essential hypertension Qualified Code(s): I10 - Essential (primary) hypertension (5) CAD (coronary artery disease) Current Visit: Yes Status: Chronic Assessment and plan: Continue home medications aspirin, Plavix, beta aubree, and statin. NTG sublingual when necessary for chest pain Qualifiers: Coronary Disease-Associated Artery/Lesion type: bypass graft [place] vs. transplanted heart: [place] heart Associated angina: without angina Qualified Code(s): I25.810 - Atherosclerosis of coronary artery bypass graft(s) without angina pectoris (6) Asthma Current Visit: Yes Status: Chronic Assessment and plan: Patient has no wheezing at this point. Continue home medication Advair discus. Qualifiers: Asthma severity: mild Asthma persistence: intermittent Asthma complication type: with acute exacerbation Qualified Code(s): J45.21 - Mild intermittent asthma with (acute) exacerbation (7) BROCK (obstructive sleep apnea) Current Visit: Yes Status: Acute Assessment and plan: Continue CPAP during night (8) DVT prophylaxis Current Visit: Yes Status: Acute Assessment and plan: Heparin subcutaneously - Time Spent With Patient Total time spent is greater than 50% in coordination of care (as documented) at patient's floor/unit and/or counseling patient: - Subjective Interval history: No acute events overnight - Constitutional Vitals: Temp Pulse Resp BP Pulse Ox 97.7 F 86 15 138/79 95 01/23/18 06:30 01/23/18 06:30 01/23/18 07:53 01/23/18 06:30 01/23/18 07:53 General appearance: Present: A&O X 3, no acute distress, answers questions appropriately - Head Head exam: Present: atraumatic, normocephalic - Eye Eye exam: Present: PERRL, conjuntiva pink, sclera anicteric Pupils: Present: PERRL - Neck Neck exam general surgery: Present: supple, trachea midline. Absent: lymphadenopathy - Respiratory Respiratory exam: Present: CTAB. Absent: accessory muscle use, rales, rhonchi, wheezes - Cardiovascular Cardiovascular exam: Present: RRR, +S1, +S2. Absent: diastolic murmur, gallop, rubs, systolic murmur - GI/Abdominal GI/Abdominal exam: Present: normal bowel sounds, soft, no peritoneal signs. Absent: distended, tenderness - Extremities Exam Extremities exam: Present: warm, radial pulses palpable and symmetrical. Absent : calf tenderness, cyanotic, pedal edema - Neurological Exam Neurological exam: Present: CN II-XII intact, oriented X3, no focal deficits. Absent: pronater drift, facial droop, speech deficit - Skin Skin exam: Present: dry, intact Internal Medicine: Result - Labs CBC & Chem 7: 01/23/18 05:14 01/23/18 05:14 Labs: Short CBC 01/23/18 Range/Units 05:14 WBC 8.0 (4.3-11.1) K/mcL Hgb 11.6 L (12.9-16.9) g/dL Hct 36.9 L (37.5-50.1) % Plt Count 271 (140-400) K/mcL Neutrophils # 4.5 (1.6-8.9) K/mcL BMP 01/23/18 05:14 Sodium 137 Potassium 3.8 Chloride 106 Carbon Dioxide 26 BUN 8 Creatinine 0.58 L Glucose 121 H Calcium 8.6 Cardiac Enzymes 01/22/18 01/22/18 01/23/18 Range/Units 17:18 23:14 05:14 Troponin I < 0.03 < 0.03 < 0.03 (< 0.04) ng/mL Consult Discharge Plan - Plan Referrals: Myron Henderson [Primary Care Provider] -
--- NOTE | 2018-01-23 16:32 | Electrocardiograph Report ---
[place] [id number] Test Date: 2018-01-22 Pat Name: Noe Newsome Department: 114 Room: [facility] Gender: M Inspector Filters: : 1955 Requested By: Sohail Deras Order Number: [id number] Reading MD: Aster Jean Measurements Intervals [place] Rate: 67 P: 79 WI: 254 QRS: 28 QRSD: 109 T: 86 QT: 416 QTc: 432 Interpretive Statements SINUS RHYTHM WITH FIRST DEGREE AV BLOCK NONSPECIFIC T-WAVE ABNORMALITY Electronically Signed On 01-23-2018 16:30:23 EDT by Aster Jean
[2018-01-23] MEDS ORDERED: Aminoglycoside Consult 1 EACH MC ONE (16:48)
--- NOTE | 2018-01-23 18:32 | Infectious Disease Consult ---
Date of Encounter: 01/23/18 Time of Encounter: 18:28 Assessment and Plan (1) Osteomyelitis of ankle, right, acute Status: Acute Assessment and plan: Causative organism MSSA Noted on MRI of the ankle on 01/[address] Mccormack's no Await Dr. Harrington recommendation Currently patient is on vancomycin and cefepime Cultures were obtained on 01/20 I will DC vancomycin and cefepime and start the patient on cefazolin and oral levofloxacin and metronidazole until cultures finalize If cultures do not grow gram negatives or pseudomonas or anaerobes I we will DC the oral levofloxacin and metronidazole Patient will need a midline placement. I will probably have to treat him with 6 weeks of IV antibiotics at least. I will not order it until I make sure that Dr. Harrington evaluates the patient and he is not planning any surgery We will manage labs and for drug toxicity (2) Charcot ankle Status: Acute Qualifiers: Laterality: right Qualified Code(s): M14.671 - Charcot's joint, right ankle and foot (3) Cellulitis Status: Acute Assessment and plan: Likely secondary to MSSA Qualifiers: Site of cellulitis: extremity Site of cellulitis of extremity: lower extremity Laterality: right Qualified Code(s): L03.115 - Cellulitis of right lower limb (4) Diabetes mellitus Status: Acute Qualifiers: Diabetes mellitus type: type 2 Diabetes mellitus shelter insulin use: with intermediate designer use Diabetes mellitus complication status: with neurologic complications Diabetes mellitus complication detail: with polyneuropathy Qualified Code(s): E11.42 - Type 2 diabetes mellitus with diabetic polyneuropathy; Z79.4 - long term (current) use of insulin (5) CAD (coronary artery disease) Status: Chronic Qualifiers: Coronary Disease-Associated Artery/Lesion type: bypass graft [place] vs. transplanted heart: [place] heart Associated angina: without angina Qualified Code(s): I25.810 - Atherosclerosis of coronary artery bypass graft(s) without angina pectoris (6) BROCK (obstructive sleep apnea) Status: Acute Infectious Disease HPI - Data of Consult Patient: new to practice Consult date: 01/23/18 Requesting Physician: Sohail Deras MD Primary Care Provider: Caio Henderson - Consult Narrative Reason for consult: osteomyelitis History of present illness: Mr. Newsome is a 62 year old male Patient is a 62-year-old gentleman who presented to [facility] and was admitted for right ankle wound on 01/20. We are consulted on 01/23 for osteomyelitis of the right foot. Patient is a pleasant 62-year-old gentleman who has a past medical history mentioned below including diabetes mellitus type 2, diabetic neuropathy, Charcot ankle, hypertension, coronary artery disease with history of CABG in the past and obstructive sleep apnea has been following wound care Dr. Harrington for quite some time for an ulceration on the right ankle. Patient tells me it was caused from his ankle rubbing on his boots. This started about 4 weeks prior. Patient was seen On 01/17, patient was seen by podiatry office for his Charcot joint of the right foot with the chronic ulcer. And at that time he was doing okay. Apparently after patient went home he noticed a greenish discharge from ruptured skin. Patient had no constitutional symptoms. Denied any fevers chills weight loss night sweats etc. Patient came into the emergency department for evaluation. Since admission, patient has been afebrile. Patient has not had any tachycardia. Presenting WBC was 9.8 thousand with normal differential. Patient s ESR on January 20 was over 130. Rest of the chemistry showed normal electrolytes and normal BUN and creatinine. Right ankle wound obtained on 01/20 grew MSSA. Blood cultures also obtained on 01/20 are no growth to date 2 out of 2 sets. Patient had an MRI of the ankle on 01/20 and it read severe bony destruction and disorganized patient with loss of marrow signal and loss of corticomedullary if her initiation throughout the talus, calcaneus, navicular, cuboid and cuneiforms. Findings are compatible with Charcot joint with super imposed osteomyelitis. Overlying subcutaneous soft tissue edema without obvious drainable fluid collection. CC: Sohail Deras MD Past Med Surg Social Fam HX - Past Medical History Medical history: arthritis, asthma, COPD, diabetes, GERD, hyperlipidemia, other Additional medical history: BROCK. DJD Psychiatric history: depression - Past Surgical History Surgical History: appendectomy, cataract, cholecystectomy, coronary bypass (CABG ), herniorrhaphy Additional surgical history: KNEE SURGERY - Social History Smoking Status: Never smoker Smokeless Tobacco Status: No Alcohol use: none Drug use: none - Family History Mother History Unknown: Yes Living Status: Age at : 71 Cause of : AR, CVA Hx Family Cardiac Disorders: Yes (CHF) Father Living Status: Age at : 71 Cause of : AR Infectious Disease-CN:Meds Amlodipine Besylate [Amlodipine Besylate] 10 mg PO DAILY 07/11/17 [History] Aspirin 81 mg PO DAILY 07/11/17 [History] Atorvastatin Calcium [Atorvastatin Calcium] 40 mg PO HS 07/11/17 [History] Clopidogrel [Plavix] 75 mg PO DAILY 07/11/17 [History] EPINEPHrine [Epipen] 0.3 mg IJ ONCE PRN 07/11/17 [History] Fluticasone/Salmeterol [Advair Hfa 230-21 Mcg Inhaler] 2 puff IH BID 07/11/17 [ History] Folic Acid [Folic Acid] 1 mg PO DAILY 07/11/17 [History] Gabapentin [Neurontin] 800 mg PO QID 07/11/17 [History] Insulin Human Regular [HumuLIN R] 100 unit IJ TID 07/11/17 [History] Metoprolol XL (24 HR) Succ [Toprol XL] 50 mg PO DAILY 07/11/17 [History] Nitroglycerin [Nitrostat] 0.4 mg SL Q5M PRN 07/11/17 [History] Omeprazole [PriLOSEC] 20 mg PO DAILY 07/11/17 [History] Oxygen 2 l NS HS 07/11/17 [History] Potassium Chloride [Klor-Con 10] 10 meq PO DAILY 07/11/17 [History] Tiotropium [Spiriva] 1 puff IH DAILY 07/11/17 [History] Bisacodyl [Woman's Laxative] 5 - 20 mg PO HS PRN 01/20/18 [History] Empagliflozin [Jardiance] 10 mg PO DAILY 01/20/18 [History] FLUoxetine HCl [PROzac] 60 mg PO DAILY 01/20/18 [History] Furosemide [Lasix] 120 mg PO DAILY 01/20/18 [History] Montelukast [Singulair] 10 mg PO DAILY 01/20/18 [History] Morphine Sulfate/Naltrexone [Embeda ER 80-3.2 mg Capsule] 1 cap PO BID 01/20/18 [History] Pramlintide Acetate [Symlinpen 120] 120 mg IJ TID 01/20/18 [History] 3 Allergy/AdvReac Type Severity Reaction Status Date / Time dapagliflozin [From [facility]] Allergy Hives Verified 01/20/18 19:08 naphazoline Allergy Hives Verified 01/20/18 19:08 cath DYE Allergy Hives Uncoded 01/20/18 19:08 Review of systems: 10 point review of systems done, negative other for what mentioned in the history of present illness. Exam - Constitutional Vitals: Temp Pulse Resp BP Pulse Ox 98.2 F 87 16 134/87 97 01/23/18 14:28 01/23/18 14:28 01/23/18 14:28 01/23/18 14:28 01/23/18 14:28 General appearance: no acute distress, no febrile - Head Head exam: Present: atraumatic, normocephalic - Eye Eye exam: Present: EOMI, PERRL. Absent: sclera anicteric - ENT ENT exam: Present: mucous membranes dry - Neck Neck exam: Present: full ROM. Absent: meningismus - Respiratory Respiratory exam: Present: CTAB. Absent: wheezes - Cardiovascular Cardiovascular exam: Present: RRR, +S1, +S2 - GI/Abdominal GI/Abdominal exam: Present: normal bowel sounds, soft. Absent: tenderness - Extremities Exam Additional comments: Right foot wrapped. - Neurological Exam Neurological exam: Present: alert, oriented X3. Absent: no focal deficits - Skin Skin exam: Present: normal color. Absent: rash Infectious Disease CN: Results - Labs CBC & Chem 7: 01/23/18 05:14 01/23/18 05:14 Consult Discharge Plan - Plan Referrals: Myron Henderson [Primary Care Provider] -
--- NOTE | 2018-01-23 19:51 | Podiatry Progress Note ---
Date of Encounter: 01/23/18 Time of Encounter: 19:00 - Assessment and Plan (1) Charcot ankle Current Visit: Yes Status: Acute discussed my findings with patient regarding Charcot condition and wound. Wound is superficial and does not extend into deep soft tissue, no abscess identified in deep tissue on MRI. Unlikely infection in bone. I do think he had cellulitis which has responded to IV abx. For his wound, will continue adaptic and compressive dressing. Strict non-weight bearing. encouraged continued glycemic control. no surgery is planned at this time. will further discuss charcot reconstruction with patient when A1c is approx 8% or below. significant increase risk of infection and subsequent limb loss with A1c approaching or greater than 9%. Elevation. DVT ppx. Follow up with me in wound care clinic next week, will need appt. Qualifiers: Laterality: right Qualified Code(s): M14.671 - Charcot's joint, right ankle and foot Subjective Principal diagnosis: Ulceration lateral right ankle with localized cellulitis. Interval history: 62 year old male known to me from the office is admitted with a right ankle ulceration with cellulitis. Patient says it developed at home and a home nurse that comes to help him called in. He was sent to the ER and subsequently admitted. The patient has long standing worsening charcot with deformity with unsstable ankle. He has improved his A1c and it is down to 8.7% per patient. Seen by Dr. Mccormack over the weekend. Objective - Vital Signs Vital Signs: Vital Signs Temp Pulse Resp BP Pulse Ox 01/23/18 14:28 98.2 F 87 16 134/87 97 01/23/18 11:04 97.9 F 84 16 136/84 96 01/23/18 07:53 15 95 01/23/18 06:30 97.7 F 86 15 138/79 95 01/23/18 04:18 12 94 01/23/18 00:34 97.9 F 84 14 136/75 94 01/23/18 00:01 17 100 01/22/18 20:31 16 93 Intake and Output 01/23/18 01/23/18 01/23/18 07:59 15:59 23:59 Intake Total 620 / 620 2970 / 2970 Output Total 1470 / 1470 2650 / 2650 Balance -850 / -850 320 / 320 Intake: IV Fluids 520 / 520 Maxipime 2,000 MG In Water for inj. (sterile) 20 ML @ 300 mls/ hr IVP Q8H JIMMY Rx#:[id number] Vancocin 1,750 MG In 0.9 % 500 / 500 Sodium Chloride 500 ML @ 333.3 mls/hr IVPB Q12H JIMMY Rx#: [id number] Oral 600 / 600 2450 / 2450 Output: Urine 1470 / 1470 2650 / 2650 Other: Meal Lunch Percent of Meal Consumed 75% # Voids 1 Blood Glucose* 108 141 139 - Exam Exam: well developed and nourished male in no acute distress CFT < 3 sec x 5 digits right foot. right lateral ankle ulceration superficial with minimal fibrotic tissue. edema of right foot and ankle. erythema has decreased of the right foot and ankle compared to line drawn on lateral ankle/ foot. moderate edema. no fluctuance. o purulence expressed. right ankle/foot defromity is semi-reducible. - Lab Result Diagrams: 01/23/18 05:14 01/23/18 05:14 Labs: Abnormal lab results Hgb 11.6 g/dL (12.9-16.9) L 01/23/18 05:14 Hct 36.9 % (37.5-50.1) L 01/23/18 05:14 MCH 26.5 pg (28.0-33.3) L 01/23/18 05:14 MCHC 31.4 g/dL (31.6-35.5) L 01/23/18 05:14 RDW 15.9 % (11.5-14.5) H 01/23/18 05:14 Eosinophils # 0.7 K/mcL (0.0-0.6) H 01/23/18 05:14 ESR >= 130 mm/hr (0-10) H 01/20/18 14:34 Creatinine 0.58 mg/dL (0.70-1.30) L 01/23/18 05:14 Glucose 121 mg/dL (70-105) H 01/23/18 05:14 POC Glucose 139 mg/dL (70-99) H 01/23/18 16:57 Alkaline Phosphatase 122 Units/L (34-104) H 01/20/18 14:34 C-Reactive Protein 11 mg/L (Less than 10) H 01/20/18 14:34 Albumin 3.3 g/dL (3.5-5.7) L 01/20/18 14:34 Globulin 4.5 g/dL (2.4-3.5) H 01/20/18 14:34 Albumin/Globulin Ratio 0.7 (1.1-2.2) L 01/20/18 14:34 Vancomycin Trough 14 mcg/mL (5-10) H 01/22/18 06:45 Consult Discharge Plan - Plan Referrals: Myron Henderson [Primary Care Provider] -
[2018-01-23] MEDS: metroNIDAZOLE 500 MG TABLET PO SCH (21:36)
[2018-01-23] MEDS: Insulin DETEMIR 100 UNIT/ML X5UNITS SQ SCH (21:36)
[2018-01-24] MEDS: ceFAZolin 2,000 MG in 0.9 % Sodium Chloride 100 ML IVPB SCH ×4 (00:45→23:42)
[2018-01-24 02:10] LABS: Basophils # 0.1 K/mcL (0.0-0.2); Basophils % 1.5 %; Eosinophils # 0.9 K/mcL (0.0-0.6); Eosinophils % 9.3 %; Hematocrit 40.3 % (37.5-50.1); Hemoglobin 12.9 g/dL (12.9-16.9); Immature Granulocytes % 0.5 % (0-4); Lymphocytes # 1.9 K/mcL (0.6-4.6); Lymphocytes % 21.2 %; Mean Corpuscular Hemoglobin 26.8 pg (28.0-33.3); Mean Corpuscular Volume 83.8 fL (83.0-100.0); Monocytes # 0.9 K/mcL (0.0-1.3); Monocytes % 9.4 %; Neutrophils # 5.3 K/mcL (1.6-8.9); Platelet Count 298 K/mcL (140-400); Red Blood Count 4.81 M/mcL (4.19-5.50); Red Cell Distribution Width 15.8 % (11.5-14.5); Segmented Neutrophils % 58.1 %
[2018-01-24 05:28] LABS: BUN/Creatinine Ratio 14 (6-26); Blood Urea Nitrogen 10 mg/dL (8-23); Calcium 9.2 mg/dL (8.6-10.3); Carbon Dioxide 27 mEq/L (23-29); Chloride 99 mEq/L (98-107); Glucose 143 mg/dL (70-105); Osmolality,Calculated 278 (280-300); Potassium 3.9 mEq/L (3.5-5.1); Sodium 133 mEq/L (136-145); eGFR For African Americans > 60 (> 60); eGFR For Non-African Americans > 60 (> 60)
[2018-01-24] MEDS: *HR* Heparin 5,000 UNIT/ML VIAL SQ SCH ×2 (05:31→16:53)
[2018-01-24] MEDS: Budesonide/Formoterol 160/4.5 MDI IH SCH ×2 (08:03→20:11)
[2018-01-24] MEDS: Insulin LISPRO 300 UNITS/3 ML VIAL SQ SCH ×4 (08:05→22:27)
[2018-01-24] MEDS ORDERED: levoFLOXacin 750 MG TABLET PO SCH (09:00)
[2018-01-24] MEDS: Folic Acid 1 MG TABLET PO SCH (09:34)
[2018-01-24] MEDS: Aspirin 81 MG TAB.CHEW PO SCH (09:34)
[2018-01-24] MEDS: amLODIPine 5 MG TABLET PO SCH (09:34)
[2018-01-24] MEDS: MORPHINE PO SCH ×2 (09:34→22:26)
[2018-01-24] MEDS: NALTREXONE PO SCH ×2 (09:34→22:26)
[2018-01-24] MEDS: Lactobacillus 1 EACH CAP.SPRINK PO SCH (09:34)
[2018-01-24] MEDS: Gabapentin 400 MG CAPSULE PO SCH ×4 (09:34→22:26)
[2018-01-24] MEDS: Metoprolol XL (24 HR) Succ 50 MG TAB.ER.24H PO SCH (09:34)
[2018-01-24] MEDS: metroNIDAZOLE 500 MG TABLET PO SCH ×3 (09:34→22:26)
--- NOTE | 2018-01-24 12:31 | Infectious Disease Progress No ---
Date of Encounter: 01/24/18 Time of Encounter: 12:28 - Assessment and Plan (1) Osteomyelitis of ankle, right, acute Current Visit: Yes Status: Acute Causative organism MSSA. Location: Right lateral ankle. Likely secondary to Charcot. MRI of the right ankle showed severe bony destruction and disorganization of marrow signal and loss of corticomedullary differentiation throughout the talus , calcaneus, navicular, cuboid, and cuneiforms compatible with Charcot joint with superimposed cellulitis. ESR >130. CRP 11. Podiatry consulted and following. Wound care and activity restrictions per the podiatry team. Await further recommendations from Dr. Harrington. Continue Cefazolin 2 grams IV Q8H for now. Will plan to switch to IV Nafcillin 12 grams Q24H via continuous IV infusion on discharge. Continue Flagyl 500mg PO TID. Discontinue Levaquin. Duration of treatment depends on the clinical picture, but likely 6 weeks of IV antibiotics given the MRI results. Consult VAT for line placement. Will need weekly CBC, BUN/Cr, ESR, CRP. Will need weekly IV care per protocol. Follow up with ID 02/09/18 at 0920. (2) Cellulitis Current Visit: Yes Status: Acute Location: Right foot/ankle. Causative organism MSSA. Likely secondary to OM. Continue antibiotics as above. Qualifiers: Site of cellulitis: extremity Site of cellulitis of extremity: lower extremity Laterality: right Qualified Code(s): L03.115 - Cellulitis of right lower limb (3) Diabetes mellitus Current Visit: Yes Status: Acute Consider checking HgbA1C. Recommend aggressive glucose monitoring and control to promote wound healing and prevent re-infection. Management per the primary team. Qualifiers: Diabetes mellitus type: type 2 Diabetes mellitus fpc insulin use: with fpc use Diabetes mellitus complication status: with neurologic complications Diabetes mellitus complication detail: with polyneuropathy Qualified Code(s): E11.42 - Type 2 diabetes mellitus with diabetic polyneuropathy; Z79.4 - superintendent [employer] (current) use of insulin (4) CAD (coronary artery disease) Current Visit: Yes Status: Chronic Qualifiers: Coronary Disease-Associated Artery/Lesion type: bypass graft [place] vs. transplanted heart: [place] heart Associated angina: without angina Qualified Code(s): I25.810 - Atherosclerosis of coronary artery bypass graft(s) without angina pectoris (5) BROCK (obstructive sleep apnea) Current Visit: Yes Status: Acute (6) Charcot ankle Current Visit: Yes Status: Acute Qualifiers: Laterality: right Qualified Code(s): M14.671 - Charcot's joint, right ankle and foot - Subjective Interval history: Patient seen and examined. No acute events noted overnight. Patient resting in bed, wants to go home. Denies fevers, chills, or rigors. Denies chest pain, shortness of breath, or cough. Reports some nausea with vomiting earlier this morning, relieved with breakfast. Denies abdominal pain, urinary complaints, or appetite changes. Denies oral thrush or skin lesions. Reports chronic back and bilateral knee pain that are at baseline. Reports mild intermittent pain at the surgical site. Infect Dis PN-Objective Data - Labs CBC & Chem 7: 01/24/18 01:45 01/24/18 03:59 Labs: Laboratory Results - last 24 hr 01/22/18 01/23/18 01/23/18 16:34 07:51 11:00 WBC RBC Hgb Hct MCV MCH MCHC RDW Plt Count MPV Immature Gran % Seg Neutrophils % Lymphocytes % Monocytes % Eosinophils % Basophils % Neutrophils # Lymphocytes # Monocytes # Eosinophils # Basophils # Sodium Potassium Chloride Carbon Dioxide BUN Creatinine Est GFR ( Amer) Est GFR (Non-Af Amer) BUN/Creatinine Ratio Glucose POC Glucose 209 H 108 H 141 H Calculated Osmolality Calcium Specimen Rejected 01/23/18 01/23/18 01/24/18 16:57 20:57 01:45 WBC 9.1 RBC 4.81 Hgb 12.9 Hct 40.3 MCV 83.8 MCH 26.8 L MCHC 32.0 RDW 15.8 H Plt Count 298 MPV 11.0 Immature Gran % 0.5 Seg Neutrophils % 58.1 Lymphocytes % 21.2 Monocytes % 9.4 Eosinophils % 9.3 Basophils % 1.5 Neutrophils # 5.3 Lymphocytes # 1.9 Monocytes # 0.9 Eosinophils # 0.9 H Basophils # 0.1 Sodium Potassium Chloride Carbon Dioxide BUN Creatinine Est GFR ( Amer) Est GFR (Non-Af Amer) BUN/Creatinine Ratio Glucose POC Glucose 139 H 156 H Calculated Osmolality Calcium Specimen Rejected 01/24/18 01/24/18 01:45 03:59 WBC RBC Hgb Hct MCV MCH MCHC RDW Plt Count MPV Immature Gran % Seg Neutrophils % Lymphocytes % Monocytes % Eosinophils % Basophils % Neutrophils # Lymphocytes # Monocytes # Eosinophils # Basophils # Sodium 133 L Potassium 3.9 Chloride 99 Carbon Dioxide 27 BUN 10 Creatinine 0.69 L Est GFR ( Amer) > 60 Est GFR (Non-Af Amer) > 60 BUN/Creatinine Ratio 14 Glucose 143 H POC Glucose Calculated Osmolality 278 L Calcium 9.2 Specimen Rejected Hemolyzed Exam - Constitutional Vitals: Temp Pulse Resp BP Pulse Ox 97.5 F L 70 18 112/62 97 01/24/18 11:26 01/24/18 11:26 01/24/18 11:26 01/24/18 11:26 01/24/18 11:26 General appearance: cooperative, no acute distress, obese - Head Head exam: Present: atraumatic, normal inspection, normocephalic - Eye Eye exam: Present: EOMI, normal appearance, PERRL Pupils: Present: normal accommodation - ENT ENT exam: Present: mucous membranes moist - Neck Neck exam: Present: normal inspection - Respiratory Respiratory exam: Present: CTAB. Absent: rales, respiratory distress, rhonchi, wheezes - Cardiovascular Cardiovascular exam: Present: RRR, +S1, +S2 - GI/Abdominal GI/Abdominal exam: Present: distended (obese), normal bowel sounds, soft. Absent: tenderness - Extremities Exam Extremities exam: Present: normal inspection. Absent: joint swelling, pedal edema, tenderness Additional comments: Right foot dressing C/D/I. - Neurological Exam Neurological exam: Present: alert, oriented X3, no focal deficits - Psychiatric Psychiatric exam: Present: normal affect, normal mood - Skin Skin exam: Present: dry, intact, normal color, warm Consult Discharge Plan - Plan Referrals: Myron Henderson [Primary Care Provider] - Natasha Hamilton, [employer] HELPER [Advanced Practice Nurse] - 02/09/18 8:00 pm Prescriptions: Nafcillin 12,000 mg IV Q24H 42 Days #42 vial - Attending Attestation I examined this patient and my medical decision-making was reviewed with the Resident Physician. I agree with the documented findings, disposition and treatment plan as described except to the extent set forth below.
[2018-01-24] MEDS ORDERED: Nafcillin 2,000 MG in D5% in Water (Mini-Bag+) 100 ML IVPB ONE (12:32)
[2018-01-24] MEDS ORDERED: Nafcillin 2,000 MG in D5% in Water 100 ML IVPB ONE (13:00)
[2018-01-24] MEDS ORDERED: Lidocaine -MPF 1% 5 ML AMPUL INFILT ONE (14:06)
--- NOTE | 2018-01-24 16:14 | Discharge Summary ---
- NOTES TO OUTPATIENT PROVIDER Notes to Outpatient Provider: Acute on chronic Charcot arthropathy, osteomyelitis right ankle, on termite treater helper IV antibiotics; needs weekly labs, ID and Podiatry f/up; blood glucose control; Orders not resulted at time of discharge: Pending orders 01/25/18 04:00 Basic Metabolic Panel AM 0400 CBC [Complete Blood Count] [HEME] AM 0400 01/26/18 04:00 Basic Metabolic Panel AM 0400 CBC [Complete Blood Count] [HEME] AM 0400 01/27/18 04:00 Basic Metabolic Panel AM 0400 CBC [Complete Blood Count] [HEME] AM 0400 01/28/18 04:00 Basic Metabolic Panel AM 0400 CBC [Complete Blood Count] [HEME] AM 0400 01/29/18 04:00 Basic Metabolic Panel AM 0400 CBC [Complete Blood Count] [HEME] AM 0400 Date of Encounter: 01/24/18 Time of Encounter: 11:20 - Discharge Diagnosis (1) Cellulitis Priority: Primary Status: Acute Qualifiers: Site of cellulitis: extremity Site of cellulitis of extremity: lower extremity Laterality: right Qualified Code(s): L03.115 - Cellulitis of right lower limb (2) Osteomyelitis Priority: Primary Status: Acute Qualifiers: Osteomyelitis type: subacute Osteomyelitis location: ankle Laterality: right Qualified Code(s): M86.271 - Subacute osteomyelitis, right ankle and foot (3) Diabetes mellitus Priority: Secondary Status: Chronic Qualifiers: Diabetes mellitus type: type 2 Diabetes mellitus termite treater helper insulin use: with termite treater helper use Diabetes mellitus complication status: with neurologic complications Diabetes mellitus complication detail: with polyneuropathy Qualified Code(s): E11.42 - Type 2 diabetes mellitus with diabetic polyneuropathy; Z79.4 - FCI (current) use of insulin (4) Hypertension Priority: Secondary Status: Chronic Qualifiers: Hypertension type: essential hypertension Qualified Code(s): I10 - Essential (primary) hypertension (5) CAD (coronary artery disease) Priority: Secondary Status: Chronic Qualifiers: Coronary Disease-Associated Artery/Lesion type: bypass graft [place] vs. 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 Newsome is a 62 year old male with the above medical problems was admitted with right ankle wound with foul-smelling discharge. He was started on broad- spectrum IV antibiotics-vancomycin and cefepime. 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 Podiatry was consulted, agreed with IV antibiotics, findings are most likely related to underlying charcoal joint, no deep tissue abscess, recommend strict nonweightbearing, appropriate glycemic control and outpatient follow-up. Infectious diseases has been on board, patient is currently medically stable for discharge on IV nafcillin and oral Flagyl. Wound culture grew MSSA. Home health services are being resumed for physical and occupational therapy and IV antibiotic infusion. Discharge discussed with: patient, nurse, social work - Time Spent with Patient Total time spent providing and/or coordinating discharge services: Greater than 30 minutes (45 min) - Discharge Medications Prescriptions: metroNIDAZOLE [Flagyl] 500 mg PO TID #126 tablet Nafcillin 12,000 mg IV Q24H 42 Days #42 vial Home Medications: Amlodipine Besylate 10 mg PO DAILY 07/11/17 [History] Aspirin 81 mg PO DAILY 07/11/17 [History] Atorvastatin Calcium 40 mg PO HS 07/11/17 [History] Clopidogrel [Plavix] 75 mg PO DAILY 07/11/17 [History] EPINEPHrine [Epipen] 0.3 mg IJ ONCE PRN 07/11/17 [History] Fluticasone/Salmeterol [Advair Hfa 230-21 Mcg Inhaler] 2 puff IH BID 07/11/17 [ History] Folic Acid 1 mg PO DAILY 07/11/17 [History] Gabapentin [Neurontin] 800 mg PO QID 07/11/17 [History] Insulin Human Regular [HumuLIN R] 100 unit IJ TID 07/11/17 [History] Metoprolol XL (24 HR) Succ [Toprol Xl] 50 mg PO DAILY 07/11/17 [History] Nitroglycerin [Nitrostat] 0.4 mg SL Q5M PRN 07/11/17 [History] Omeprazole [PriLOSEC] 20 mg PO DAILY 07/11/17 [History] Oxygen 2 l NS HS 07/11/17 [History] Potassium Chloride [Klor-Con 10] 10 meq PO DAILY 07/11/17 [History] Tiotropium [Spiriva] 1 puff IH DAILY 07/11/17 [History] Bisacodyl [Woman's Laxative] 5 - 20 mg PO HS PRN 01/20/18 [History] Empagliflozin [Jardiance] 10 mg PO DAILY 01/20/18 [History] FLUoxetine HCl [Prozac] 60 mg PO DAILY 01/20/18 [History] Furosemide [Lasix] 120 mg PO DAILY 01/20/18 [History] Montelukast [Singulair] 10 mg PO DAILY 01/20/18 [History] Morphine Sulfate/Naltrexone [Embeda ER 80-3.2 mg Capsule] 1 cap PO BID 01/20/18 [History] Pramlintide Acetate [Symlinpen 120] 120 mg IJ TID 01/20/18 [History] Nafcillin 12,000 mg IV Q24H 42 Days #42 vial 01/24/18 [Rx] metroNIDAZOLE [Flagyl] 500 mg PO TID #126 tablet 01/24/18 [Rx] Allergies/Adverse Reactions: 3 Allergy/AdvReac Type Severity Reaction Status Date / Time dapagliflozin [From [facility]] Allergy Hives Verified 01/20/18 19:08 naphazoline Allergy Hives Verified 01/20/18 19:08 cath DYE Allergy Hives Uncoded 01/20/18 19:08 Date of admission: 01/20/18 19:50 Primary care physician: Caio Henderson Consults: 01/23/18 10:22 Consult to Infectious Diseases [CONS] Routine Consulting Provider: Infectious Disease [place] Reason for Consult: osteomyelitis Call Completed: Yes 01/24/18 14:06 Consult to Invasive Line Access Team [CONS] Routine Reason for Consult: Picc Line Insertion Line Type: PICC PICC line indications: intermediate teacher Med/Antibiotic Time Notified: 14:06 Call Completed: Yes 01/24/18 15:33 Consult to Panel Beater [CONS] Routine Reason for SW Consult: Discharge IV ABX Discharging clinician: Sintia Michael Anticipated date of discharge: 01/24/18 - Constitutional Vitals: Temp Pulse Resp BP Pulse Ox 97.6 F 70 18 96/64 95 01/24/18 15:54 01/24/18 15:54 01/24/18 15:54 01/24/18 15:54 01/24/18 15:54 General appearance: Present: A&O X 3, morbidly obese, no acute distress, answers questions appropriately - Respiratory Respiratory exam: Present: CTAB. Absent: accessory muscle use, rales, rhonchi, wheezes - Cardiovascular Cardiovascular exam: Present: RRR, +S1, +S2. Absent: diastolic murmur, gallop, rubs, systolic murmur - Patient Status Disposition: Home Health Service Condition: Fair Functional capacity at discharge: uses cane/walker Overall status at discharge: patient is progressing back to baseline - Discharge Instructions Follow Up With: Natasha Hamilton CNP [Advanced Practice Nurse] - 02/09/18 8:00 pm Myron Henderson [Primary Care Provider] - Additional Instructions: F/up with in 1 week - Diet and Activity Activity: as per physical therapy Diet: diabetic diet, low fat, low cholesterol, low salt diet
--- NOTE | 2018-01-24 16:21 | Physician Discharge Referral ---
Home Health/Hosp Referral Info Transfer to: Home Health Attending Provider: Sintia Michael Provider in Charge Post Discharge: PCP - Diagnosis (1) Cellulitis Priority: Primary Status: Acute (2) Osteomyelitis Priority: Primary Status: Acute (3) Diabetes mellitus Priority: Secondary Status: Chronic (4) Hypertension Priority: Secondary Status: Chronic (5) CAD (coronary artery disease) Priority: Secondary Status: Chronic (6) Asthma Priority: Secondary Status: Chronic (7) BROCK (obstructive sleep apnea) Priority: Secondary Status: Chronic (8) Charcot ankle Priority: Primary Status: Chronic - Respiratory Orders Oxygen / L per min (2L/min via NC) Smoking Cessation: Smoking cessation has been advised. For more information, call the [email or web address] Quit Line at [phone]-HHAV-NOW. - Diet/Nutrition Diet/Nutrition Orders: No Added Salt (MAIDA), Cardiac, No Concentrated Sweets ( diabetic) - Activity Activity Orders: Ambulate (strict non-weightbearing on right foot) - Services Needed Following services are medically necessary services: Nursing, Physical Therapy, Occupational Therapy, Home Infusion - Transfer Medications Prescriptions: metroNIDAZOLE [Flagyl] 500 mg PO TID #126 tablet Nafcillin 12,000 mg IV Q24H 42 Days #42 vial Home Medications: Amlodipine Besylate 10 mg PO DAILY 07/11/17 [History] Aspirin 81 mg PO DAILY 07/11/17 [History] Atorvastatin Calcium 40 mg PO HS 07/11/17 [History] Clopidogrel [Plavix] 75 mg PO DAILY 07/11/17 [History] EPINEPHrine [Epipen] 0.3 mg IJ ONCE PRN 07/11/17 [History] Fluticasone/Salmeterol [Advair Hfa 230-21 Mcg Inhaler] 2 puff IH BID 07/11/17 [ History] Folic Acid 1 mg PO DAILY 07/11/17 [History] Gabapentin [Neurontin] 800 mg PO QID 07/11/17 [History] Insulin Human Regular [HumuLIN R] 100 unit IJ TID 07/11/17 [History] Metoprolol XL (24 HR) Succ [Toprol Xl] 50 mg PO DAILY 07/11/17 [History] Nitroglycerin [Nitrostat] 0.4 mg SL Q5M PRN 07/11/17 [History] Omeprazole [PriLOSEC] 20 mg PO DAILY 07/11/17 [History] Oxygen 2 l NS HS 07/11/17 [History] Potassium Chloride [Klor-Con 10] 10 meq PO DAILY 07/11/17 [History] Tiotropium [Spiriva] 1 puff IH DAILY 07/11/17 [History] Bisacodyl [Woman's Laxative] 5 - 20 mg PO HS PRN 01/20/18 [History] Empagliflozin [Jardiance] 10 mg PO DAILY 01/20/18 [History] FLUoxetine HCl [Prozac] 60 mg PO DAILY 01/20/18 [History] Furosemide [Lasix] 120 mg PO DAILY 01/20/18 [History] Montelukast [Singulair] 10 mg PO DAILY 01/20/18 [History] Morphine Sulfate/Naltrexone [Embeda ER 80-3.2 mg Capsule] 1 cap PO BID 01/20/18 [History] Pramlintide Acetate [Symlinpen 120] 120 mg IJ TID 01/20/18 [History] Nafcillin 12,000 mg IV Q24H 42 Days #42 vial 01/24/18 [Rx] metroNIDAZOLE [Flagyl] 500 mg PO TID #126 tablet 01/24/18 [Rx] Allergies/Adverse Reactions: 3 Allergy/AdvReac Type Severity Reaction Status Date / Time dapagliflozin [From [facility]] Allergy Hives Verified 01/20/18 19:08 naphazoline Allergy Hives Verified 01/20/18 19:08 cath DYE Allergy Hives Uncoded 01/20/18 19:08 Certification: Further, I certify that my clinical findings support that this patient is homebound (i.e. absences from home require considerable and taxing effort and are for medical reasons or quaker services or infrequently or short duration when for other reasons) because: Homebound Reason: Patient requires assistance of a person or device to safely leave home, Post-surgery restriction and or conditions limit ability to leave home, Leaving home requires considerable and taxing effort due to condition Attestation: My signature below is to certify that this patient is under my care and that I, or nurse practitioner, or a physician's assistant nurse manager working with me, has a face-to -face encounter with this patient.
[2018-01-24] MEDS: Insulin DETEMIR 100 UNIT/ML X5UNITS SQ SCH (22:27)
[2018-01-25] MEDS: *HR* Heparin 5,000 UNIT/ML VIAL SQ SCH (05:30)
[2018-01-25 06:09] LABS: Basophils # 0.1 K/mcL (0.0-0.2); Basophils % 1.4 %; Eosinophils # 0.8 K/mcL (0.0-0.6); Eosinophils % 8.3 %; Hematocrit 37.2 % (37.5-50.1); Immature Granulocytes % 0.8 % (0-4); Lymphocytes # 1.5 K/mcL (0.6-4.6); Lymphocytes % 16.6 %; Mean Corpuscular HGB Conc 32.3 g/dL (31.6-35.5); Mean Corpuscular Hemoglobin 27.5 pg (28.0-33.3); Mean Corpuscular Volume 85.1 fL (83.0-100.0); Mean Platelet Volume 11.3 fL (9.4-12.4); Monocytes % 10.9 %; Neutrophils # 5.7 K/mcL (1.6-8.9); Platelet Count 254 K/mcL (140-400); Red Blood Count 4.37 M/mcL (4.19-5.50); Red Cell Distribution Width 15.9 % (11.5-14.5)
[2018-01-25 06:16] LABS: BUN/Creatinine Ratio 21 (6-26); Blood Urea Nitrogen 14 mg/dL (8-23); Calcium 8.9 mg/dL (8.6-10.3); Carbon Dioxide 26 mEq/L (23-29); Chloride 98 mEq/L (98-107); Glucose 160 mg/dL (70-105); Osmolality,Calculated 274 (280-300); Potassium 4.2 mEq/L (3.5-5.1); Sodium 130 mEq/L (136-145); eGFR For African Americans > 60 (> 60); eGFR For Non-African Americans > 60 (> 60)
[2018-01-25] MEDS: Budesonide/Formoterol 160/4.5 MDI IH SCH (08:12)
[2018-01-25] MEDS: Metoprolol XL (24 HR) Succ 50 MG TAB.ER.24H PO SCH (08:39)
[2018-01-25] MEDS: amLODIPine 5 MG TABLET PO SCH (08:39)
[2018-01-25] MEDS: MORPHINE PO SCH (08:41)
[2018-01-25] MEDS: Lactobacillus 1 EACH CAP.SPRINK PO SCH (08:41)
[2018-01-25] MEDS: metroNIDAZOLE 500 MG TABLET PO SCH ×2 (08:41→14:54)
[2018-01-25] MEDS: NALTREXONE PO SCH (08:41)
[2018-01-25] MEDS: Aspirin 81 MG TAB.CHEW PO SCH (08:41)
[2018-01-25] MEDS: Folic Acid 1 MG TABLET PO SCH (08:41)
[2018-01-25] MEDS: Gabapentin 400 MG CAPSULE PO SCH ×2 (08:41→11:42)
[2018-01-25] MEDS: ceFAZolin 2,000 MG in 0.9 % Sodium Chloride 100 ML IVPB SCH ×2 (08:41→14:54)
[2018-01-25] MEDS: Insulin LISPRO 300 UNITS/3 ML VIAL SQ SCH ×2 (08:42→11:41)
--- NOTE | 2018-01-25 14:02 | Infectious Disease Progress No ---
Date of Encounter: 01/25/18 Time of Encounter: 13:59 - Assessment and Plan (1) Osteomyelitis of ankle, right, acute Current Visit: Yes Status: Acute Causative organism MSSA. Location: Right lateral ankle. Likely secondary to Charcot. MRI of the right ankle showed severe bony destruction and disorganization of marrow signal and loss of corticomedullary differentiation throughout the talus , calcaneus, navicular, cuboid, and cuneiforms compatible with Charcot joint with superimposed cellulitis. ESR >130. CRP 11. Podiatry consulted and following. Wound care and activity restrictions per the podiatry team. Dr. Harrington's recommendations noted. Continue Cefazolin 2 grams IV Q8H for now. Will plan to switch to IV Nafcillin 12 grams Q24H via continuous IV infusion on discharge. Discontinue Flagyl. Duration of treatment depends on the clinical picture, but likely 6 weeks of IV antibiotics given the MRI results. We will follow how the patient does clinically and his inflammatory markers and base exact duration on those factors. Will need weekly CBC, BUN/Cr, ESR, CRP. Will need weekly IV care per protocol. Follow up with ID 02/09/18 at 0920. (2) Cellulitis Current Visit: Yes Status: Acute Location: Right foot/ankle. Causative organism MSSA. Likely secondary to OM. Continue antibiotics as above. Qualifiers: Site of cellulitis: extremity Site of cellulitis of extremity: lower extremity Laterality: right Qualified Code(s): L03.115 - Cellulitis of right lower limb (3) Diabetes mellitus Current Visit: Yes Status: Chronic Consider checking HgbA1C. Recommend aggressive glucose monitoring and control to promote wound healing and prevent re-infection. Management per the primary team. Qualifiers: Diabetes mellitus type: type 2 Diabetes mellitus fci insulin use: with 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 use Diabetes mellitus complication status: with neurologic complications Diabetes mellitus complication detail: with polyneuropathy Qualified Code(s): E11.42 - Type 2 diabetes mellitus with diabetic polyneuropathy; Z79.4 - FCI (current) use of insulin (4) CAD (coronary artery disease) Current Visit: Yes Status: Chronic Qualifiers: Coronary Disease-Associated Artery/Lesion type: bypass graft [place] vs. transplanted heart: [place] heart Associated angina: without angina Qualified Code(s): I25.810 - Atherosclerosis of coronary artery bypass graft(s) without angina pectoris (5) BROCK (obstructive sleep apnea) Current Visit: Yes Status: Chronic (6) Charcot ankle Current Visit: Yes Status: Chronic Qualifiers: Laterality: right Qualified Code(s): M14.671 - Charcot's joint, right ankle and foot - Subjective Interval history: Patient seen and examined. No acute events noted overnight. Patient resting in bed, wants to go home. Denies fevers, chills, or rigors. Denies chest pain, shortness of breath, or cough. Reports some nausea with vomiting earlier this morning, relieved with breakfast. Denies abdominal pain, urinary complaints, or appetite changes. Denies oral thrush or skin lesions. Reports chronic back and bilateral knee pain that are at baseline. Reports mild intermittent pain at the surgical site. Awaiting insurance approval and home health setup for discharge. Infect Dis PN-Objective Data - Labs CBC & Chem 7: 01/25/18 05:25 01/25/18 05:25 Labs: Laboratory Results - last 24 hr 01/24/18 01/24/18 01/24/18 07:37 11:50 16:02 WBC RBC Hgb Hct MCV MCH MCHC RDW Plt Count MPV Immature Gran % Seg Neutrophils % Lymphocytes % Monocytes % Eosinophils % Basophils % Neutrophils # Lymphocytes # Monocytes # Eosinophils # Basophils # Sodium Potassium Chloride Carbon Dioxide BUN Creatinine Est GFR ( Amer) Est GFR (Non-Af Amer) BUN/Creatinine Ratio Glucose POC Glucose 113 H 165 H 92 Calculated Osmolality Calcium 01/24/18 01/25/18 01/25/18 19:34 05:25 05:25 WBC 9.2 RBC 4.37 Hgb 12.0 L Hct 37.2 L MCV 85.1 MCH 27.5 L MCHC 32.3 RDW 15.9 H Plt Count 254 MPV 11.3 Immature Gran % 0.8 Seg Neutrophils % 62.0 Lymphocytes % 16.6 Monocytes % 10.9 Eosinophils % 8.3 Basophils % 1.4 Neutrophils # 5.7 Lymphocytes # 1.5 Monocytes # 1.0 Eosinophils # 0.8 H Basophils # 0.1 Sodium 130 L Potassium 4.2 Chloride 98 Carbon Dioxide 26 BUN 14 Creatinine 0.67 L Est GFR ( Amer) > 60 Est GFR (Non-Af Amer) > 60 BUN/Creatinine Ratio 21 Glucose 160 H POC Glucose 127 H Calculated Osmolality 274 L Calcium 8.9 Exam - Constitutional Vitals: Temp Pulse Resp BP Pulse Ox 97.9 F 78 14 100/68 92 01/25/18 11:21 01/25/18 11:21 01/25/18 11:21 01/25/18 11:21 01/25/18 11:21 General appearance: cooperative, morbidly obese, no acute distress - Head Head exam: Present: atraumatic, normal inspection, normocephalic - Eye Eye exam: Present: EOMI, normal appearance, PERRL Pupils: Present: normal accommodation - ENT ENT exam: Present: mucous membranes moist - Neck Neck exam: Present: normal inspection - Respiratory Respiratory exam: Present: CTAB. Absent: rales, respiratory distress, rhonchi, wheezes - Cardiovascular Cardiovascular exam: Present: RRR, +S1, +S2 - GI/Abdominal GI/Abdominal exam: Present: distended (obese), normal bowel sounds, soft. Absent: tenderness - Extremities Exam Extremities exam: Absent: joint swelling, pedal edema, tenderness Additional comments: Right foot/ankle dressing C/D/I. - Neurological Exam Neurological exam: Present: alert, oriented X3, no focal deficits - Psychiatric Psychiatric exam: Present: normal affect, normal mood - Skin Skin exam: Present: dry, intact, normal color, warm - VTE Documentation of Mechanical Device: Venous foot pump, device Consult Discharge Plan - Plan Additional Instructions: F/up with in 1 week F/U with PCP within 1-2 weeks. Please return to ER if you notice any excessive redness, fever, chills, odor or drainage. Daily dressing change: Adaptic, ABD and augusta wrap. Referrals: Natasha Hamilton CNP [Advanced Practice Nurse] - 02/09/18 8:00 pm Myron Henderson [Primary Care Provider] - Prescriptions: metroNIDAZOLE [Flagyl] 500 mg PO TID #126 tablet Nafcillin 12,000 mg IV Q24H 42 Days #42 vial - Attending Attestation I examined this patient and my medical decision-making was reviewed with the Resident Physician. I agree with the documented findings, disposition and treatment plan as described except to the extent set forth below.
[2018-01-25 15:11] VITALS: BP 107/64
== END 2018-01-25 16:49 | disposition home health service (06) | DRG 540 ==
LOC: 3NENU 13:55 → EMEROO 13:55 → SUATTDRO 19:50 → 3NENU 20:17
PROVIDERS: ADMIT Internal Medicine; ATTEND Internal Medicine

== ENCOUNTER 2018-04-09 00:48 | Inpatient (IN) ==
[2018-04-09 02:07] LABS: Basophils # 0.1 K/mcL (0.0-0.2); Basophils % 0.6 %; Eosinophils % 0.2 %; Hematocrit 31.6 % (37.5-50.1); Hemoglobin 10.4 g/dL (12.9-16.9); Immature Granulocytes % 0.8 % (0-4); Lymphocytes # 0.9 K/mcL (0.6-4.6); Lymphocytes % 5.9 %; Mean Corpuscular HGB Conc 32.9 g/dL (31.6-35.5); Mean Corpuscular Hemoglobin 29.4 pg (28.0-33.3); Mean Corpuscular Volume 89.3 fL (83.0-100.0); Mean Platelet Volume 10.7 fL (9.4-12.4); Monocytes # 1.9 K/mcL (0.0-1.3); Neutrophils # 12.8 K/mcL (1.6-8.9); Platelet Count 223 K/mcL (140-400); Red Blood Count 3.54 M/mcL (4.19-5.50); Segmented Neutrophils % 80.5 %
[2018-04-09 02:19] LABS: BUN/Creatinine Ratio 16 (6-26); Blood Urea Nitrogen 14 mg/dL (8-23); Calcium 8.5 mg/dL (8.6-10.3); Carbon Dioxide 30 mEq/L (23-29); Chloride 91 mEq/L (98-107); Creatine Kinase 172 Units/L (30-223); Glucose 192 mg/dL (70-105); Osmolality,Calculated 272 (280-300); Potassium 3.1 mEq/L (3.5-5.1); Sodium 128 mEq/L (136-145); eGFR For Non-African Americans > 60 (> 60)
--- NOTE | 2018-04-09 03:59 | Emergency Department Note ---
Disposition Clinical Impression: Hyponatremia, Weakness Low back pain Qualifiers: Chronicity: acute Back pain laterality: midline Sciatica presence: unspecified whether sciatica present Qualified Code(s): M54.5 - Low back pain Fall Qualifiers: Encounter type: initial encounter Qualified Code(s): W19.XXXA - Unspecified fall, initial encounter Disposition: Admitted As Inpatient Condition: Fair Time of Disposition: 07:28 General Adult HPI - General Chief complaint: ED Back Pain/Injury Stated complaint: fall Time Seen by Provider: 04/09/18 00:55 Source: patient Mode of arrival: EMS Limitations: no limitations Nursing Notes Reviewed: Yes Vital Signs Reviewed: Yes - History of Present Illness HPI Narrative: Patient is a 63-year-old male with a past medical history of asthma, COPD, DM, HLD, CAD, CABG presenting to the emergency department for evaluation of low back pain and bilateral lower extremity tingling status post fall. The patient states that he is in bed the majority of the time he states that today he was getting out of bed to use his bedside commode when his feet started slipping out from underneath him and he fell down onto his buttock's and landed on the floor. He states he is on the floor for approximately 6 hours because his was out with friends did not want to disturb her. States he is able to crawl around on the floor by unable to get up. States the fall was purely him slipping on the carpet he denies any syncope, loss of consciousness or nonmechanical mechanism. He denies any fevers, headache, vision changes, chest pain, shortness of breath, abdominal pain or other injury. He points to his lumbar spine in preference to the area of pain from the fall. Patient also has a wrapped right lower foot which she states is from Charcot foot he states that he has the dressings changed daily and that he has been following along with podiatry. States that he has felt just generally weak over the past couple weeks. He states he did land and hit his right foot against the wall when he came down and also may have hit the back of his head against the side of his bed. Patient denies any LOC, nausea or vomiting. Pain Scale: 4 - Related Data Home Medications Medication Instructions Recorded Confirmed Amlodipine Besylate 10 mg PO DAILY 07/11/17 01/20/18 Aspirin 81 mg PO DAILY 07/11/17 01/20/18 Atorvastatin Calcium 40 mg PO HS 07/11/17 01/20/18 Clopidogrel [Plavix] 75 mg PO DAILY 07/11/17 01/20/18 EPINEPHrine [Epipen] 0.3 mg IJ ONCE PRN 07/11/17 01/20/18 Fluticasone/Salmeterol [Advair Hfa 2 puff IH BID 07/11/17 01/20/18 230-21 Mcg Inhaler] Folic Acid 1 mg PO DAILY 07/11/17 01/20/18 Gabapentin [Neurontin] 800 mg PO QID 07/11/17 01/20/18 Insulin Human Regular [HumuLIN R] 100 unit IJ TID 07/11/17 01/20/18 Metoprolol XL (24 HR) Succ [Toprol 50 mg PO DAILY 07/11/17 01/20/18 Xl] Nitroglycerin [Nitrostat] 0.4 mg SL Q5M PRN 07/11/17 01/20/18 Omeprazole [PriLOSEC] 20 mg PO DAILY 07/11/17 01/20/18 Oxygen 2 l NS HS 07/11/17 01/20/18 Potassium Chloride [Klor-Con 10] 10 meq PO DAILY 07/11/17 01/20/18 Tiotropium [Spiriva] 1 puff IH DAILY 07/11/17 01/20/18 Bisacodyl [Woman's Laxative] 5 - 20 mg PO HS PRN 01/20/18 01/20/18 Empagliflozin [Jardiance] 10 mg PO DAILY 01/20/18 01/20/18 FLUoxetine HCl [Prozac] 60 mg PO DAILY 01/20/18 01/20/18 Furosemide [Lasix] 120 mg PO DAILY 01/20/18 01/20/18 Montelukast [Singulair] 10 mg PO DAILY 01/20/18 01/20/18 Morphine Sulfate/Naltrexone 1 cap PO BID 01/20/18 01/20/18 [Embeda ER 80-3.2 mg Capsule] Pramlintide Acetate [Symlinpen 120] 120 mg IJ TID 01/20/18 01/20/18 Ibuprofen [Motrin] 800 mg PO Q6HR 02/09/18 02/09/18 Previous Rx's Medication Instructions Recorded Nafcillin 12,000 mg IV Q24H 42 Days #42 vial 01/24/18 metroNIDAZOLE [Flagyl] 500 mg PO TID #126 tablet 01/24/18 Allergies Allergy/AdvReac Type Severity Reaction Status Date / Time dapagliflozin [From [facility]] Allergy Hives Verified 01/20/18 19:08 naphazoline Allergy Hives Verified 01/20/18 19:08 cath DYE Allergy Hives Uncoded 01/20/18 19:08 All systems ED: reviewed and negative except as stated. Review of Systems: As Per HPI Constitutional: Reports: weakness. Denies: fever, chills Cardiovascular: Denies: chest pain, palpitations, dyspnea on exertion Respiratory: Denies: cough, dyspnea Gastrointestinal: Denies: abdominal pain, nausea, vomiting Genitourinary: Denies: urgency, dysuria Musculoskeletal: Reports: back pain. Denies: neck pain Integumentary: Denies: rash Past Medical History - Past Medical History Attestation: Yes The following information was validated with the patient. Medical history: Reports: arthritis, asthma, COPD, diabetes, GERD, hyperlipidemia, other Surgical history: Reports: appendectomy, cataract, cholecystectomy, coronary bypass (CABG), herniorrhaphy Psychiatric history: Reports: depression - Social History Smoking Status: Former smoker Smokeless Tobacco Status: No Alcohol use: Reports: none Drug use: Reports: none Physical Exam - General Limitations: no limitations General appearance: alert, in no apparent distress - Head Head exam: atraumatic, normocephalic, normal inspection - Eye Eye exam: Present: normal appearance, PERRL, EOMI - ENT ENT exam: normal exam, normal oropharynx - Neck Neck exam: Present: normal inspection, full ROM, trachea midline. Absent: tenderness - Chest Chest inspection: Present: normal inspection, symmetric chest wall rise. Absent : tenderness - Respiratory Respiratory exam: Present: normal lung sounds bilaterally, respiratory distress. Absent: wheezes - Cardiovascular Cardiovascular exam: Present: regular rate, normal rhythm, normal heart sounds, +S1, +S2 - Abdominal Exam Abdominal exam: Present: soft, Non-Tender, normal bowel sounds - Expanded Lower Extremity Exam Hip/Pelvis exam: Present: normal inspection, full ROM Upper leg exam: Present: normal inspection, full ROM Knee exam: Present: normal inspection, full ROM Lower leg exam: Present: normal inspection, full ROM Ankle exam: Present: other (Patient right foot is bandaged with an Josh wrap. He has no surrounding signs of erythema, induration or flex fluctuance. No signs of infection.) Course Course Narrative: Patient was evaluated for his fall with imaging of his head, neck, right foot and lumbar spine. These imaging results were all negative for any acute fractures. Discussed with lab work to evaluate for his fall which included basic labs as well as a CK and metabolic panel to evaluate for kidney injury or concerns for rhabdomyolysis. Patient's CK was within normal limits he did have a mild elevation of his creatinine which appears to be chronic. Discussed the patient's case with the hospitalist on-call plan to admit him for his falls and weakness as well as his hyponatremia and they agree to accept the patient. Vital Signs Temperature 99.8 F H 04/09/18 00:50 Pulse Rate 97 04/09/18 00:50 Respiratory Rate 18 04/09/18 00:50 Blood Pressure 116/50 04/09/18 00:50 O2 Sat by Pulse Oximetry 96 04/09/18 00:50 Temperature 98.7 F 04/09/18 05:41 Pulse Rate 79 04/09/18 05:41 Respiratory Rate 16 04/09/18 05:41 Blood Pressure 94/54 04/09/18 05:41 O2 Sat by Pulse Oximetry 97 04/09/18 05:41 Oxygen Delivery Oxygen Delivery Room Air Medical Decision Making - Medical Records Medical records reviewed: Yes I reviewed the patient's medical records. - Lab Data Lab results reviewed: Yes I reviewed the patient's lab results. Result diagrams: 04/09/18 01:49 04/09/18 01:49 Lab Results 04/09/18 04/09/18 Range/Units 01:49 01:49 WBC 15.8 H (4.3-11.1) K/mcL RBC 3.54 L (4.19-5.50) M/mcL Hgb 10.4 L (12.9-16.9) g/dL Hct 31.6 L (37.5-50.1) % MCV 89.3 (83.0-100.0) fL MCH 29.4 (28.0-33.3) pg MCHC 32.9 (31.6-35.5) g/dL RDW 15.0 H (11.5-14.5) % Plt Count 223 (140-400) K/mcL MPV 10.7 (9.4-12.4) fL Immature Gran % 0.8 (0-4) % Seg Neutrophils % 80.5 % Lymphocytes % 5.9 % Monocytes % 12.0 % Eosinophils % 0.2 % Basophils % 0.6 % Neutrophils # 12.8 H (1.6-8.9) K/mcL Lymphocytes # 0.9 (0.6-4.6) K/mcL Monocytes # 1.9 H (0.0-1.3) K/mcL Eosinophils # 0.0 (0.0-0.6) K/mcL Basophils # 0.1 (0.0-0.2) K/mcL Sodium 128 L (136-145) mEq/L Potassium 3.1 L (3.5-5.1) mEq/L Chloride 91 L (98-107) mEq/L Carbon Dioxide 30 H (23-29) mEq/L BUN 14 (8-23) mg/dL Creatinine 0.90 (0.70-1.30) mg/dL Est GFR ( Amer) > 60 (> 60) Est GFR (Non-Af Amer) > 60 (> 60) BUN/Creatinine Ratio 16 (6-26) Glucose 192 H (70-105) mg/dL Calculated Osmolality 272 L (280-300) Calcium 8.5 L (8.6-10.3) mg/dL Creatine Kinase 172 (30-223) Units/L Troponin I < 0.03 (< 0.04) ng/mL - Radiology Data Radiology results reviewed: Yes I reviewed the patient's radiology results. Foot X-Ray 04/09/18 01:41 IMPRESSION: Severe neuropathic disease in the midfoot, with heterotopic bone formation. No definite acute abnormality is seen. No radiopaque foreign object. D/ : / 04/09/2018 05:55:02 Jase Reis MD / shailayer Interpreting Provider: Jase Reis MD Lumbar Spine CT 04/09/18 01:42 IMPRESSION: 1. No acute osseous abnormality in the lumbar spine. 2. Gpil-rq-aoxonlck multilevel degenerative changes in the lumbar spine. 3. Scattered borderline enlarged retroperitoneal lymph nodes, which are nonspecific. D/ / 04/09/2018 05:56:22 Jase Reis MD / shailayer Interpreting Provider: Jase Reis MD Head CT 04/09/18 01:43 IMPRESSION: No acute intracranial abnormality. Stable chronic findings, as above D/ / Yuniel Sherman / Yuniel Sherman Interpreting Provider: Yuniel Sherman Chest X-Ray 04/09/18 03:24 IMPRESSION: No acute process. D/ / Jase Reis MD / Jase Reis MD Interpreting Provider: Jase Reis MD - EKG Data EKG #1 EKG attestation: Yes I reviewed and interpreted this EKG. EKG results narrative: EKG done at 3:42 shows sinus rhythm at a rate of 91 bpm. Normal axis. Intervals within normal limits. No signs of ischemia. Attestation Statement - Attestation Attestation: I, Raffi Jeffery, examined this patient and my medical decision-making was reviewed with the CLERK GUIDE/PA/Advanced Practice Nurse/Resident Physician. I agree with the documented findings, disposition and treatment plan as described except to the extent set forth below. 63-year-old male presents emergency Department with concerns of weakness and a fall. Patient states he was trying to get out of bed when his feet slid on a blanket on the floor. He slid down to the ground without hitting his head or having loss of consciousness. Patient states he is generally able to get off the ground however he has been increasingly weak over the past 2 days. Abdomen is nontender to palpation. Lungs are clear to auscultation. Patient is resting comfortably in emergency department. Laboratory evaluation shows anemia which is near his baseline however he also has hyponatremia which is not present on other laboratory evaluation. Patient denies recent changes in his medications. He will be admitted to the hospital for further care and evaluation of his weakness and hyponatremia.
[2018-04-09 04:26] LABS: Troponin I < 0.03 ng/mL (< 0.04)
[2018-04-09] MEDS ORDERED: Naloxone 0.4 MG/ML INJ IVP PRN (07:54)
[2018-04-09] MEDS ORDERED: D5% in Water 1,000 ML IVC PRN (07:57)
[2018-04-09] MEDS ORDERED: *HR* Dextrose 50 % in Water (Syg) 50 ML SYRINGE IVP PRN (07:57)
[2018-04-09] MEDS ORDERED: Dextrose Gel 15 GM/37.5 ML TUBE PO PRN ×2 (07:57)
[2018-04-09] MEDS ORDERED: 0.9 % Sodium Chloride 1,000 ML IVC SCH (08:00)
--- NOTE | 2018-04-09 08:59 | Internal Med History&Physical ---
Date of Encounter: 04/09/18 Time of Encounter: 08:57 Internal Medicine - H&P: HPI Chief complaint: Fall Admitted From: Home Plans for Post Hospital Care: Hospice - Home History of present illness: Mr. Newsome is a 63 year old male with a past medical history of asthma, COPD, DM , HLD, CAD, CABG, history of osteomyelitis of the right ankle. Discharged 2017 on antibiotics. Presented to the ER following a mechanical fall when he was trying to get out of bed. He denies any preceding chest or cardiovascular symptoms before his fall. He landed on his buttocks on denies hitting his head and also loss of consciousness.He denies any fevers, headache, vision changes, chest pain, shortness of breath, abdominal pain or other injury. He reports chronic right ankle wound related to his checkup. For which he changes his dressings daily and has been following with podiatry. She reports associated decreased urinary output and generalized weakness. He reports poor oral intake and is feeding dehydrated. He denies changes in bowel habits. Workup in the ER was significant for hypoosmolar hyponatremia, hypokalemia and leukocytosis. Spine imaging, head imaging and foot imaging shows no acute processes. At this time, it is uncertain if his right ankle wound is infected, he denies any new changes to his wound, but he has leukocytosis we will send wound culture and consult wound care Past Med Surg Social Fam HX - Past Medical History Medical history: arthritis, asthma, COPD, diabetes, GERD, hyperlipidemia, other Additional medical history: BROCK. DJD Psychiatric history: depression - Past Surgical History Surgical History: appendectomy, cataract, cholecystectomy, coronary bypass (CABG ), herniorrhaphy Additional surgical history: KNEE SURGERY - Social History Smoking Status: Former smoker Smokeless Tobacco Status: No Alcohol use: none Drug use: none - Family History Mother Living Status: Hx Family Cardiac Disorders: Yes (CHF) Hx Family Endocrine Disorder: Yes (DM) Father Living Status: Hx Family Cardiac Disorders: Yes ([place]) Internal Medicine - H&P: Meds Amlodipine Besylate 10 mg PO DAILY 07/11/17 [History] Aspirin 81 mg PO DAILY 07/11/17 [History] Atorvastatin Calcium 40 mg PO HS 07/11/17 [History] Clopidogrel [Plavix] 75 mg PO DAILY 07/11/17 [History] EPINEPHrine [Epipen] 0.3 mg IJ ONCE PRN 07/11/17 [History] Fluticasone/Salmeterol [Advair Hfa 230-21 Mcg Inhaler] 2 puff IH BID 07/11/17 [ History] Folic Acid 1 mg PO DAILY 07/11/17 [History] Gabapentin [Neurontin] 800 mg PO QID 07/11/17 [History] Insulin Human Regular [HumuLIN R] 100 unit IJ TID 07/11/17 [History] Metoprolol XL (24 HR) Succ [Toprol Xl] 50 mg PO DAILY 07/11/17 [History] Nitroglycerin [Nitrostat] 0.4 mg SL Q5M PRN 07/11/17 [History] Omeprazole [PriLOSEC] 20 mg PO DAILY 07/11/17 [History] Oxygen 2 l NS HS 07/11/17 [History] Potassium Chloride [Klor-Con 10] 10 meq PO DAILY 07/11/17 [History] Tiotropium [Spiriva] 1 puff IH DAILY 07/11/17 [History] Bisacodyl [Woman's Laxative] 5 - 20 mg PO HS PRN 01/20/18 [History] Empagliflozin [Jardiance] 10 mg PO DAILY 01/20/18 [History] FLUoxetine HCl [Prozac] 60 mg PO DAILY 01/20/18 [History] Furosemide [Lasix] 120 mg PO DAILY 01/20/18 [History] Montelukast [Singulair] 10 mg PO DAILY 01/20/18 [History] Morphine Sulfate/Naltrexone [Embeda ER 80-3.2 mg Capsule] 1 cap PO BID 01/20/18 [History] Pramlintide Acetate [Symlinpen 120] 120 mg IJ TID 01/20/18 [History] Nafcillin 12,000 mg IV Q24H 42 Days #42 vial 01/24/18 [Rx] metroNIDAZOLE [Flagyl] 500 mg PO TID #126 tablet 01/24/18 [Rx] Ibuprofen [Motrin] 800 mg PO Q6HR 02/09/18 [History] 3 Allergy/AdvReac Type Severity Reaction Status Date / Time dapagliflozin [From [facility]] Allergy Hives Verified 01/20/18 19:08 naphazoline Allergy Hives Verified 01/20/18 19:08 cath DYE Allergy Hives Uncoded 01/20/18 19:08 All Systems PM: A 10-system review of systems was performed and is negative for pertinent findings except as documented above in the HPI. - Constitutional Constitutional: chills, fever(s), falls, no night sweats - EENT Eyes: no change in vision, no discharge, no pain, no photophobia Ears: no ear discharge, no ear pain, no tinnitus Nose, mouth and throat: no dysphagia, no nasal discharge, no neck pain, no sore throat - Cardiovascular Cardiovascular ROS IM: no chest pain, no diaphoresis, no dyspnea, no lightheadedness, no palpitations, no syncope - Respiratory Respiratory: no cough, no dyspnea, no wheezing, no excessive phlegm production - Gastrointestinal Gastrointestinal: no abdominal pain, no diarrhea, no hematemesis, no hematochezia, no melena, no nausea, no vomiting - Musculoskeletal Musculoskeletal ROS IM: numbness, tingling - Integumentary Integumentary IM: no rash, no unusual bruising - Neurological Neurological ROS: no confusion, no convulsions, no focal weakness, no numbness, no tingling, no tremor(s) - Hematologic/Lymphatic Hematologic/Lymphatic: no easy bruising - Constitutional Vitals: Temp Pulse Resp BP Pulse Ox 99.6 F 90 16 100/61 92 04/09/18 08:09 04/09/18 08:09 04/09/18 08:09 04/09/18 08:09 04/09/18 08:09 General appearance: Present: A&O X 3, morbidly obese, pleasant, no acute distress Exam: see detailed exam - Head Head exam: Present: atraumatic, normocephalic - Eye Eye exam: Present: PERRL, conjuntiva pink, sclera anicteric Pupils: Present: PERRL - Neck Neck exam general surgery: Present: supple, trachea midline. Absent: lymphadenopathy - Respiratory Respiratory exam: Present: CTAB. Absent: accessory muscle use, rales, rhonchi, wheezes - Cardiovascular Cardiovascular exam: Present: RRR, +S1, +S2. Absent: diastolic murmur, gallop, rubs, systolic murmur - GI/Abdominal GI/Abdominal exam: Present: normal bowel sounds, soft, no peritoneal signs. Absent: distended, tenderness Additional comments: scar on abdominal wall - Extremities Exam Extremities exam: Absent: calf tenderness, cyanotic Additional comments: Bilateral piting pedal edema Right ankle with wound dressing slightly soaked with sero-sanguinous discharge, not foul smelling - Neurological Exam Neurological exam: Present: alert, CN II-XII intact, oriented X3, no focal deficits. Absent: pronater drift, facial droop, speech deficit - Skin Skin exam: Present: dry. Absent: intact Internal Med - H&P Results - Labs CBC & Chem 7: 04/09/18 01:49 04/09/18 01:49 - Assessment and plan (1) Asthma Current Visit: Yes Status: Chronic Assessment and plan: not in exacerbation continue singulair albuterol nebs qrn Qualifiers: Asthma severity: unspecified severity Asthma persistence: unspecified Asthma complication type: uncomplicated Qualified Code(s): J45.909 - Unspecified asthma, uncomplicated (2) CAD (coronary artery disease) Current Visit: Yes Status: Chronic Assessment and plan: continue home meds, when confirmed Qualifiers: Coronary Disease-Associated Artery/Lesion type: [place] artery [place] vs. transplanted heart: [place] heart Associated angina: without angina Qualified Code(s): I25.10 - Atherosclerotic heart disease of [place] coronary artery without angina pectoris (3) Charcot foot due to diabetes mellitus Current Visit: Yes Status: Chronic Assessment and plan: Bilateral. Right greater than left. Right ankle wound dressing with serosanguineous discharge. There is unclear if patient is on antibiotics at home. Wound care consult evaluation for wound dressing Obtain wound culture Foot x-ray showed severe neuropathic disease in the midfoot with heterotropin bone formation and no acute abnormality. No osteomyelitis Started on empiric antibiotics with [facility] eval non-emergently as patient follows up with them as outpatient (4) Diabetes mellitus Current Visit: Yes Status: Chronic Assessment and plan: Basal and prandial insulin, ADA diet, correctional dose insulin. 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 Qualifiers: Encounter type: initial encounter Qualified Code(s): W19.XXXA - Unspecified fall, initial encounter (7) Hypertension Current Visit: Yes Status: Chronic Assessment and plan: Continue home medications Hold Lasix for now Qualifiers: Hypertension type: essential hypertension Qualified Code(s): I10 - Essential (primary) hypertension (8) Hyponatremia Current Visit: Yes Status: Acute Assessment and plan: Hyperosmolar likely due to diuretics patient is also clinically dehydrated Gentle hydration Repeat sodium level q8h Continue to monitor (9) Morbid obesity Current Visit: Yes Status: Chronic Assessment and plan: Lifestyle modification (10) BROCK (obstructive sleep apnea) Current Visit: Yes Status: Chronic Assessment and plan: CPAP at bedtime (11) Weakness Current Visit: Yes Status: Acute Assessment and plan: Physical and occupational therapy evaluation (12) Leukocytosis Current Visit: Yes Status: Acute Assessment and plan: Likely secondary to dehydration as well as right ankle wound infection Qualifiers: Leukocytosis type: bandemia Qualified Code(s): D72.825 - Bandemia - Time Spent With Patient Total time spent is greater than 50% in coordination of care (as documented) at patient's floor/unit and/or counseling patient:
[2018-04-09] MEDS ORDERED: metroNIDAZOLE 500 MG TABLET PO SCH (09:00)
[2018-04-09] MEDS: Aspirin 81 MG TAB.CHEW PO SCH (09:58)
[2018-04-09] MEDS: amLODIPine 5 MG TABLET PO SCH (09:58)
[2018-04-09] MEDS: Insulin LISPRO 300 UNITS/3 ML VIAL SQ SCH ×3 (12:58→21:09)
[2018-04-09] MEDS: Piperacillin/Tazobactam 3.375 GM in 0.9 % Sodium Chloride Mini Bag 100 ML IVPB SCH (17:41)
[2018-04-09 17:58] LABS: BUN/Creatinine Ratio 19 (6-26); Blood Urea Nitrogen 18 mg/dL (8-23); Calcium 8.6 mg/dL (8.6-10.3); Carbon Dioxide 30 mEq/L (23-29); Chloride 91 mEq/L (98-107); Glucose 200 mg/dL (70-105); Osmolality,Calculated 270 (280-300); Potassium 3.7 mEq/L (3.5-5.1); Sodium 126 mEq/L (136-145); eGFR For Non-African Americans > 60 (> 60)
[2018-04-09] MEDS: Ondansetron 4 MG/2 ML VIAL IVP PRN (21:08)
[2018-04-09] MEDS: Acetaminophen 325 MG TABLET PO PRN (21:08)
[2018-04-09] MEDS: Insulin DETEMIR 100 UNIT/ML X5UNITS SQ SCH (21:10)
[2018-04-09] MEDS: MORPHINE PO SCH (21:10)
[2018-04-09] MEDS: NALTREXONE PO SCH (21:10)
[2018-04-10] MEDS: Piperacillin/Tazobactam 3.375 GM in 0.9 % Sodium Chloride Mini Bag 100 ML IVPB SCH ×3 (01:46→15:33)
[2018-04-10] MEDS: Ondansetron 4 MG/2 ML VIAL IVP PRN ×3 (02:43→23:15)
[2018-04-10] MEDS: Acetaminophen 325 MG TABLET PO PRN ×3 (02:43→22:51)
[2018-04-10] MEDS ORDERED: *HR* Enoxaparin 40 MG/0.4 ML SYRINGE SQ SCH (06:00)
[2018-04-10 06:39] LABS: Basophils % 0.2 %; Eosinophils % 0.2 %; Hematocrit 31.2 % (37.5-50.1); Hemoglobin 10.5 g/dL (12.9-16.9); Immature Granulocytes % 0.7 % (0-4); Lymphocytes # 0.9 K/mcL (0.6-4.6); Lymphocytes % 5.5 %; Mean Corpuscular HGB Conc 33.7 g/dL (31.6-35.5); Mean Corpuscular Hemoglobin 30.3 pg (28.0-33.3); Mean Corpuscular Volume 89.9 fL (83.0-100.0); Mean Platelet Volume 11.6 fL (9.4-12.4); Monocytes # 1.5 K/mcL (0.0-1.3); Monocytes % 9.3 %; Neutrophils # 13.9 K/mcL (1.6-8.9); Platelet Count 238 K/mcL (140-400); Red Blood Count 3.47 M/mcL (4.19-5.50); Red Cell Distribution Width 14.7 % (11.5-14.5); Segmented Neutrophils % 84.1 %
[2018-04-10 07:08] LABS: BUN/Creatinine Ratio 20 (6-26); Blood Urea Nitrogen 15 mg/dL (8-23); Calcium 8.4 mg/dL (8.6-10.3); Carbon Dioxide 28 mEq/L (23-29); Chloride 94 mEq/L (98-107); Glucose 131 mg/dL (70-105); Osmolality,Calculated 271 (280-300); Potassium 3.3 mEq/L (3.5-5.1); Sodium 129 mEq/L (136-145); eGFR For Non-African Americans > 60 (> 60)
[2018-04-10] MEDS: amLODIPine 5 MG TABLET PO SCH (08:11)
[2018-04-10] MEDS: Aspirin 81 MG TAB.CHEW PO SCH (08:12)
[2018-04-10] MEDS: Insulin LISPRO 300 UNITS/3 ML VIAL SQ SCH ×4 (08:12→21:47)
[2018-04-10] MEDS: MORPHINE PO SCH ×2 (08:13→21:47)
[2018-04-10] MEDS: NALTREXONE PO SCH ×2 (08:13→21:47)
[2018-04-10] MEDS ORDERED: Aminoglycoside Consult 1 EACH MC ONE (10:48)
[2018-04-10 11:00] LABS: Estimated Average Glucose 171 mg/dl; Hemoglobin A1C 7.6 %
[2018-04-10 13:46] LABS: Acinetobacter baumannii by PCR Not Detected (Not Detect); Enterobacter cloacae Cmplx PCR Not Detected (Not Detect); Enterobacteriaceae by PCR Not Detected (Not Detect); Enterococcus by PCR Not Detected (Not Detect); Staphylococcus aureus by PCR DETECTED (Not Detect); Staphylococcus by PCR DETECTED (Not Detect); Streptococcus agalactiae(B)PCR Not Detected (Not Detect); Streptococcus by PCR Not Detected (Not Detect); Streptococcus pneumoniae PCR Not Detected (Not Detect); Streptococcus pyogenes (A) PCR Not Detected (Not Detect); mecA Methicillin-Resist Gene Not Detected (Not Detect)
[2018-04-10 13:47] LABS: Candida albicans by PCR Not Detected (Not Detect); Candida glabrata by PCR Not Detected (Not Detect); Candida krusei by PCR Not Detected (Not Detect); Candida parapsilosis by PCR Not Detected (Not Detect); Candida tropicalis by PCR Not Detected (Not Detect); Escherichia coli by PCR Not Detected (Not Detect); Klebsiella oxytoca by PCR Not Detected (Not Detect); Klebsiella pneumoniae by PCR Not Detected (Not Detect); Proteus by PCR Not Detected (Not Detect); Pseudomonas aeruginosa by PCR Not Detected (Not Detect); Serratia marcescens by PCR Not Detected (Not Detect)
--- NOTE | 2018-04-10 14:11 | Internal Med Progress Note ---
Hospitalist Progress Note - Encounter Date of Encounter: 04/10/18 Time of Encounter: 14:09 - Subjective Interval History: Mr Newsome is currently admitted for near syncope and found to have staph bacteremia. He remains high risk at this time due to potential for worsening clinical status. Mr Newsome is feeling "woozy" when stands up. No fever or chills. Has been sweating. Has also had a lot of bleeding from R foot. No CP or SOB. No GI issues. Just feels "bad" and nothing has helped. - Exam Vitals: Temp Pulse Resp BP Pulse Ox 101.5 F H 96 16 112/63 92 04/10/18 11:52 04/10/18 11:52 04/10/18 11:52 04/10/18 11:52 04/10/18 11:52 Exam: General: Alert and oriented. Comfortable at this time. Morbidly obese. Skin: Normal color, no rash, no lesions. H: Normocephalic. EENT: EOMI, pupils equal, round and reactive. Mucus membranes moist. No lesion. Cardiovascular: Normal S1 & S2, no rubs, murmurs or gallops. No JVD. Pulse regular. Heart sound distant. Lungs: Normal breath sounds, no wheezes or crackles. Abdomen: Soft, non-tender, no rigidity. Normal bowel sounds. Extremities: Edema present bilateral extremities - R greater than L. Dressing intact on R foot. Stasis dermatitis bilaterally. Charcot foot bilaterally. No splinter hemorrhages noted. Neurological: Normal cognition and motor skills. Pulses: Carotid and radial pulses normal +2. Rest of the physical exam is non contributory - Assessment and Plan (1) Sepsis Current Visit: Yes Status: Suspected Assessment and Plan: Pt admitted after a fall. Has severe sepsis - fever, tachycardia, leukocytosis and positive blood cultures. No lactate has been drawn - will order. Currently on Zosyn. Vancomycin added. ID consulted. Podiatry consulted. Echo ordered. (2) Severe sepsis due to methicillin resistant Staphylococcus aureus (MRSA) with acute organ dysfunction Current Visit: Yes Status: Suspected Assessment and Plan: As above. (3) Hypokalemia Current Visit: Yes Status: Acute Assessment and Plan: New today. Replace. (4) Hyponatremia Current Visit: Yes Status: Acute Assessment and Plan: Has slowly been improving. Recheck tomorrow. (5) Diabetes mellitus Current Visit: Yes Status: Chronic Assessment and Plan: Uncontrolled. Currently on basal and prandial insulin. Continue to monitor sugars and cover. (6) Hypertension Current Visit: Yes Status: Chronic Assessment and Plan: Controlled currently. (7) CAD (coronary artery disease) Current Visit: Yes Status: Chronic Assessment and Plan: Chronic issue (8) Asthma Current Visit: Yes Status: Chronic Assessment and Plan: not in exacerbation continue singulair albuterol nebs prn (9) BROCK (obstructive sleep apnea) Current Visit: Yes Status: Chronic Assessment and Plan: CPAP at bedtime (10) DVT prophylaxis Current Visit: Yes Status: Acute (11) Morbid obesity Current Visit: Yes Status: Chronic Assessment and Plan: Lifestyle modification (12) Charcot foot due to diabetes mellitus Current Visit: Yes Status: Chronic Assessment and Plan: Bilateral. Right greater than left. Right ankle wound dressing with serosanguineous discharge and has had some bleeding. Blood cx with staph aureus. Vancomycin added to Zosyn. Foot x-ray showed severe neuropathic disease in the midfoot with heterotropin bone formation and no acute abnormality. No osteomyelitis Podiatry eval non-emergently as patient follows up with them as outpatient (13) Fall Current Visit: Yes Status: Acute Assessment and Plan: no fractures Associated weakness Fall was mechanical in description Fall precautions Physical and occupational therapy evaluation. - Time Spent with Patient Total time spent is greater than 50% in coordination of care (as documented) at patient's floor/unit and/or counseling patient: Internal Medicine: Result - Labs CBC & Chem 7: 04/10/18 05:49 04/10/18 05:49 Consult Discharge Plan - Plan Referrals: Myron Henderson [Primary Care Provider] - Sepsis Event Note - Evaluation Sepsis Screen: No Definite Risk Current Stage of Suspected Sepsis: severe sepsis Possible Source of Sepsis: bone/joint - Focused Exam Date of Encounter: 04/10/18 Time of Encounter: 14:27 Respiratory Exam: Present: CTA bilaterally Cardiovascular Exam: Present: RRR Capillary Refill: < 2 seconds Peripheral Pulse Strength: 3+ normal Peripheral Pulse Location: Radial Skin Exam: normal turgor - Bedside Monitoring Bedside Ultrasound Performed: No Passive Leg raise/fluid bolus: not performed (1) Sepsis Qualifiers: Sepsis type: methicillin resistant Staphylococcus aureus Qualified Code(s): A41.02 - Sepsis due to Methicillin resistant Staphylococcus aureus (5) Diabetes mellitus Qualifiers: Diabetes mellitus type: type 2 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 transplanted heart: [place] heart Associated angina: without angina Qualified Code(s): I25.10 - Atherosclerotic heart disease of [place] coronary artery without angina pectoris (8) Asthma Qualifiers: Asthma severity: unspecified severity Asthma persistence: unspecified Asthma complication type: uncomplicated Qualified Code(s): J45.909 - Unspecified asthma, uncomplicated (13) Fall Qualifiers: Encounter type: subsequent encounter Qualified Code(s): W19.XXXD - Unspecified fall, subsequent encounter
[2018-04-10] MEDS ORDERED: 0.9 % Sodium Chloride 1,000 ML IVC SCH (14:45)
--- NOTE | 2018-04-10 16:31 | Infectious Disease Consult ---
Date of Encounter: 04/10/18 Time of Encounter: 16:27 Assessment and Plan (1) Sepsis Status: Acute Assessment and plan: The patient has 3 sepsis criteria. Likely secondary to bacteremia. Currently has fevers with leukocytosis and tachycardia. Blood cultures obtained 04/09/18 her +2 out of 2 sets from MRSA per PCR. Repeat blood cultures 2 sets in the morning. Qualifiers: Sepsis type: methicillin resistant Staphylococcus aureus Qualified Code(s) : A41.02 - Sepsis due to Methicillin resistant Staphylococcus aureus (2) Bacteremia Status: Acute Assessment and plan: Causative organism: MSSA. Source: Unclear, but concern for right foot infection given previous wound cultures were positive for MSSA. Blood cultures obtained 04/09/18 were +2 out of 2 sets. Complicated if the source is osteomyelitis. At this point, the patient has 2 minor [place] criteria. No endocarditis stigmata noted on exam. Repeat blood cultures in the morning. Neck rheumatoid factor. Discontinue Vanco and Zosyn. Start Ancef 2 g IV every 8 hours. Await repeat blood cultures. Will need TTE and likely a ISRAEL prior to discharge. Duration of treatment depends on the clinical picture. Monitor renal function and dose adjust antibiotics. Avoid insertion of long-term IV access until repeat blood cultures are negative 48 hours. (3) Osteomyelitis of ankle, right, acute Status: Acute Assessment and plan: Location: Right ankle. Causative organism: MSSA. Previously treated with 6 weeks of IV nafcillin followed by 2 weeks of oral Keflex. Clinically, the patient improved, but his inflammatory markers did remain elevated. Previous imaging revealed findings consistent with osteomyelitis. Podiatry was consulted, but did not recommend any surgical intervention at that time, so we treated aggressively with IV and oral antibiotics. Solid. Await their recommendations. We will defer further imaging to the podiatry team. Check ESR and CRP. Wound care and activity restrictions per the podiatry team. (4) Hyponatremia Status: Acute Assessment and plan: We secondary to poor by mouth intake. Improved. Further workup and management per the primary team. (5) Low back pain Status: Acute Assessment and plan: CT scan of the lumbar spine negative for acute abnormality. Likely secondary to fall. Pain management per the primary team. Qualifiers: Chronicity: acute Back pain laterality: midline Sciatica presence: unspecified whether sciatica present Qualified Code(s): M54.5 - Low back pain (6) Fall Status: Acute Qualifiers: Encounter type: subsequent encounter Qualified Code(s): W19.XXXD - Unspecified fall, subsequent encounter (7) Weakness Status: Acute (8) Hypokalemia Status: Acute Assessment and plan: [place] secondary to poor by mouth intake. Replacement per the primary team. (9) Diabetes mellitus Status: Chronic Assessment and plan: Recommend aggressive glucose monitoring and control to promote wound healing and prevent reinfection. Management per the primary team. Qualifiers: Diabetes mellitus type: type 2 Diabetes mellitus residential insulin use: with residential use Diabetes mellitus complication status: with neurologic complications Diabetes mellitus complication detail: with polyneuropathy Qualified Code(s): E11.42 - Type 2 diabetes mellitus with diabetic polyneuropathy; Z79.4 - [facility] (current) use of insulin (10) Charcot foot due to diabetes mellitus Status: Chronic (11) BROCK (obstructive sleep apnea) Status: Chronic (12) Hypertension Status: Chronic Qualifiers: Hypertension type: essential hypertension Qualified Code(s): I10 - Essential (primary) hypertension (13) CAD (coronary artery disease) Status: Chronic Qualifiers: Coronary Disease-Associated Artery/Lesion type: [place] artery [place] vs. transplanted heart: [place] heart Associated angina: without angina Qualified Code(s): I25.10 - Atherosclerotic heart disease of tribe coronary artery without angina pectoris Infectious Disease HPI - Data of Consult Patient: known to practice within the last 3 years Consult date: 04/10/18 Requesting Physician: Adrian Rousseau DO Primary Care Provider: Caio Henderson - Consult Narrative Reason for consult: Bacteremia History of present illness: Mr. Newsome is a 63 year old male with a past medical history of COPD, diabetes, hyperlipidemia, CAD, CABG, depression, Charcot arthropathy, and right foot infection status post IV antibiotic therapy. The patient was admitted to the hospital 04/09/18 with complaints of low back pain, hyponatremia, status post fall. We are consulted April 10 for further recommendations for bacteremia. Briefly, the patient is a 63-year-old male with past medical history as stated above. The patient is known to the ID services we are consulted on this case recently for osteomyelitis of the right ankle.. At that time, the patient had a wound culture that grew out MSSA. The patient was evaluated by podiatry, but no surgical intervention was advised at that time. He completed a six-week course of IV nafcillin in 2 weeks of by mouth Keflex. The patient was doing well clinically and his antibiotic therapy was discontinued. He presented to the emergency department yesterday after he fell at home. Upon arrival, the patient was tachycardic and had leukocytosis. He had multiple x-rays and CTs that were all essentially negative. Blood cultures were obtained 2 sets. He was admitted to the hospital for further evaluation. Since admission, the patient has been febrile tachycardic with a MAXIMUM TEMPERATURE of 102.6. Today, he is white blood cell count is up a little bit 16 ,000. His blood cultures drawn in the emergency department came back +2 out of 2 sets for MSSA. Spout Positioner been consulted. Currently, the patient is on Vanco and Zosyn. We have been asked to evaluate and make further recommendations. During my exam today, the patient endorses the history as stated above. He reports subjective fevers, chills, and rigors. He reports headache and neck pain. He denies any congestion, earache, or sore throat. He reports palpitations, but denies chest pain, shortness of breath, or cough. He reports poor appetite with nausea and vomiting. He denies any diarrhea. He does report some dysuria, but denies urinary frequency. He denies any abdominal pain. He reports low back pain since he fell at home. He reports generalized weakness with no focal deficit. He denies any dizziness or syncope. He denies any oral thrush or new skin lesions. He states he has been following up with the podiatry clinic and his wound started bleeding today. The patient lives at home with his . He denies any tobacco, alcohol, or illicit drug use. CC: Adrian Rousseau, DO Past Med Surg Social Fam HX - Past Medical History Attestation: Yes The following information was validated with the patient. Source: patient, old records reviewed, nursing notes reviewed Medical history: arthritis, asthma, COPD, diabetes, GERD, hyperlipidemia, other Additional medical history: BROCK. DJD Psychiatric history: depression - Past Surgical History Surgical History: appendectomy, cataract, cholecystectomy, coronary bypass (CABG ), herniorrhaphy Additional surgical history: KNEE SURGERY - Social History Smoking Status: Former smoker Smokeless Tobacco Status: No Alcohol use: none Drug use: none Occupational status: retired Current living situation: Home, With Family Activity Level: Uses cane/walker Recent Out of Country Travel Within the Last 8 Weeks: No Exposure or Possible Exposure to Illness During Travel: No - Family History Mother Living Status: Hx Family Cardiac Disorders: Yes (CHF) Hx Family Endocrine Disorder: Yes (DM) Father Living Status: Hx Family Cardiac Disorders: Yes (MT) Infectious Disease-CN:Meds Amlodipine Besylate 10 mg PO DAILY 07/11/17 [History] Aspirin 81 mg PO DAILY 07/11/17 [History] Atorvastatin Calcium 40 mg PO HS 07/11/17 [History] Clopidogrel [Plavix] 75 mg PO DAILY 07/11/17 [History] EPINEPHrine [Epipen] 0.3 mg IJ ONCE PRN 07/11/17 [History] Fluticasone/Salmeterol [Advair Hfa 230-21 Mcg Inhaler] 2 puff IH BID 07/11/17 [ History] Folic Acid 1 mg PO DAILY 07/11/17 [History] Gabapentin [Neurontin] 800 mg PO QID 07/11/17 [History] Insulin Human Regular [HumuLIN R] 100 unit IJ TID 07/11/17 [History] Metoprolol XL (24 HR) Succ [Toprol Xl] 50 mg PO DAILY 07/11/17 [History] Nitroglycerin [Nitrostat] 0.4 mg SL Q5M PRN 07/11/17 [History] Omeprazole [PriLOSEC] 20 mg PO DAILY 07/11/17 [History] Oxygen 2 l NS HS 07/11/17 [History] Potassium Chloride [Klor-Con 10] 10 meq PO DAILY 07/11/17 [History] Tiotropium [Spiriva] 1 puff IH DAILY 07/11/17 [History] Bisacodyl [Woman's Laxative] 5 - 20 mg PO HS PRN 01/20/18 [History] Empagliflozin [Jardiance] 10 mg PO DAILY 01/20/18 [History] FLUoxetine HCl [Prozac] 60 mg PO DAILY 01/20/18 [History] Furosemide [Lasix] 120 mg PO DAILY 01/20/18 [History] Montelukast [Singulair] 10 mg PO DAILY 01/20/18 [History] Morphine Sulfate/Naltrexone [Embeda ER 80-3.2 mg Capsule] 1 cap PO BID 01/20/18 [History] Pramlintide Acetate [Symlinpen 120] 120 mg IJ TID 01/20/18 [History] Ibuprofen [Motrin] 800 mg PO Q6HR 02/09/18 [History] 3 Allergy/AdvReac Type Severity Reaction Status Date / Time dapagliflozin [From [facility]] Allergy Hives Verified 01/20/18 19:08 naphazoline Allergy Hives Verified 01/20/18 19:08 cath DYE Allergy Hives Uncoded 01/20/18 19:08 All systems: reviewed and no additional remarkable complaints except as stated Exam - Constitutional Vitals: Temp Pulse Resp BP Pulse Ox 101.5 F H 96 16 112/63 92 04/10/18 11:52 04/10/18 11:52 04/10/18 11:52 04/10/18 11:52 04/10/18 11:52 General appearance: cooperative, morbidly obese, no acute distress - Head Head exam: Present: atraumatic, normal inspection, normocephalic - Eye Eye exam: Present: EOMI, normal appearance, PERRL Pupils: Present: normal accommodation Additional comments: No subconjunctival hemorrhage noted. - ENT ENT exam: Present: mucous membranes moist - Neck Neck exam: Present: normal inspection - Respiratory Respiratory exam: Present: CTAB. Absent: rales, respiratory distress, rhonchi, wheezes - Cardiovascular Cardiovascular exam: Present: irregular rhythm, tachycardia - GI/Abdominal GI/Abdominal exam: Present: distended ( Obese), normal bowel sounds, soft. Absent: tenderness - Extremities Exam Extremities exam: Present: pedal edema (Venous stasis dermatitis noted to bilateral lower extremities.). Absent: joint swelling, tenderness Additional comments: Right foot dressing clean, dry, and intact. - Back Exam Back exam: Present: paraspinal tenderness (Lumbar spine, secondary to fall.), vertebral tenderness - Neurological Exam Neurological exam: Present: alert, oriented X3, no focal deficits - Psychiatric Psychiatric exam: Present: normal affect, normal mood - Skin Skin exam: Present: dry, intact, normal color, warm Additional comments: No endocarditis stigmata noted. Infectious Disease CN: Results - Labs CBC & Chem 7: 04/11/18 06:48 04/11/18 06:48 Serology: Serology 04/09/18 Range/Units 20:56 A. baumannii (PCR) Not Detected (Not Detect) [place] albicans (PCR) Not Detected (Not Detect) C. glabrata (PCR) Not Detected (Not Detect) C. krusei (PCR) Not Detected (Not Detect) C. parapsilosis (PCR) Not Detected (Not Detect) C. tropicalis (PCR) Not Detected (Not Detect) Enterobacteriac sp PCR Not Detected (Not Detect) E. cloacae complex PCR Not Detected (Not Detect) Enterococcus sp PCR Not Detected (Not Detect) E. coli (PCR) Not Detected (Not Detect) H. influenzae (PCR) Not Detected (Not Detect) Klebsiella oxytoca PCR Not Detected (Not Detect) Klebsiella pneumoniae Not Detected (Not Detect) List. monocytogenes PCR Not Detected (Not Detect) N. meningitidis (PCR) Not Detected (Not Detect) Proteus species (PCR) Not Detected (Not Detect) Serratia marcescens PCR Not Detected (Not Detect) Staphylococcus sp PCR DETECTED A (Not Detect) Staph aureus (PCR) DETECTED A (Not Detect) mecA-Methicil Res Gene Not Detected (Not Detect) Streptococcus sp PCR Not Detected (Not Detect) Group A Strep DNA Not Detected (Not Detect) Group B Strep (PCR) Not Detected (Not Detect) Strep pneumoniae (PCR) Not Detected (Not Detect) P. aeruginosa (PCR) Not Detected (Not Detect) Isatu/B-Vanco Res Genes N/A (Not Detect) KPC (blaKPC) Detect PCR N/A (Not Detect) Consult Discharge Plan - Plan Referrals: Myron Henderson [Primary Care Provider] - - Attending Attestation I examined this patient and my medical decision-making was reviewed with the Resident Physician. I agree with the documented findings, disposition and treatment plan as described except to the extent set forth below. This is an addendum to original report dictated by Natasha Hamilton CNP. Please refer to Antoine note for full detail. Patient is a 63-year-old gentleman known to our service presented with osteomyelitis of the right ankle in the past with causative organism MSSA treated with 6 weeks of IV nafcillin followed by 2 weeks of oral Keflex recently. Patient came with sepsis like picture and was found to have MSSA bacteremia. Patient will need to [place] prior to discharge and will also need IV antibiotics for 6 week. Midline need to be placed once cultures are negative for 48 hours. Please repeat cultures. Patient aware of possible adverse reactions of antibiotics. While on antibiotics. To monitor labs clinically and monitor kidney function closely. Patient will need weekly CBC, BMP. Patient for production clinic in 2 weeks.
--- NOTE | 2018-04-10 17:39 | Sepsis Event Note ---
Sepsis Reassessment Note - Evaluation Sepsis Screen: No Definite Risk Current Stage of Sepsis: severe sepsis Possible Source of Sepsis: wound - Focused Exam Date of Encounter: 04/10/18 Time of Encounter: 17:38 Vital Signs: Vital Signs Temp Pulse Resp BP Pulse Ox 04/10/18 17:32 98.6 F 86 16 113/58 98 Respiratory Exam: Present: CTA bilaterally Cardiovascular Exam: Present: RRR Capillary Refill: < 2 seconds Peripheral Pulse Strength: 3+ normal Peripheral Pulse Location: Radial Skin Exam: normal turgor - Reassessment Comments Comments: Lactate normal at 1.2
[2018-04-10] MEDS: Insulin DETEMIR 100 UNIT/ML X5UNITS SQ SCH (21:48)
[2018-04-11] MEDS: *HR* Enoxaparin 40 MG/0.4 ML SYRINGE SQ SCH (05:32)
[2018-04-11] MEDS: Ondansetron 4 MG/2 ML VIAL IVP PRN ×3 (05:37→21:48)
[2018-04-11 07:08] LABS: Hematocrit 28.2 % (37.5-50.1); Hemoglobin 9.3 g/dL (12.9-16.9); Mean Corpuscular Hemoglobin 29.4 pg (28.0-33.3); Mean Corpuscular Volume 89.2 fL (83.0-100.0); Mean Platelet Volume 11.3 fL (9.4-12.4); Platelet Count 235 K/mcL (140-400); Red Blood Count 3.16 M/mcL (4.19-5.50); Red Cell Distribution Width 14.6 % (11.5-14.5)
[2018-04-11 07:26] LABS: BUN/Creatinine Ratio 24 (6-26); Blood Urea Nitrogen 13 mg/dL (8-23); Calcium 8.2 mg/dL (8.6-10.3); Carbon Dioxide 22 mEq/L (23-29); Chloride 98 mEq/L (98-107); Glucose 90 mg/dL (70-105); Osmolality,Calculated 270 (280-300); Potassium 3.7 mEq/L (3.5-5.1); Sodium 130 mEq/L (136-145); eGFR For Non-African Americans > 60 (> 60)
[2018-04-11] MEDS: Insulin LISPRO 300 UNITS/3 ML VIAL SQ SCH ×4 (07:48→21:47)
[2018-04-11] MEDS: amLODIPine 5 MG TABLET PO SCH (08:31)
[2018-04-11] MEDS: Aspirin 81 MG TAB.CHEW PO SCH (08:31)
[2018-04-11] MEDS: NALTREXONE PO SCH ×2 (08:33→21:48)
[2018-04-11] MEDS: MORPHINE PO SCH ×2 (08:33→21:48)
[2018-04-11] MEDS ORDERED: Gadolinium Contrast Agent (WT Based) IV PRN (13:22)
--- NOTE | 2018-04-11 15:58 | Infectious Disease Progress No ---
Date of Encounter: 04/11/18 Time of Encounter: 12:15 - Assessment and Plan (1) Sepsis Current Visit: Yes Status: Acute The patient has 3 sepsis criteria. Likely secondary to bacteremia. Currently has fevers with leukocytosis and tachycardia. Blood cultures obtained 04/09/18 her +2 out of 2 sets from MSSA per PCR. Repeat blood cultures 2 sets drawn 04/11/18 are pending. Qualifiers: Sepsis type: methicillin resistant Staphylococcus aureus Qualified Code(s) : A41.02 - Sepsis due to Methicillin resistant Staphylococcus aureus (2) Bacteremia Current Visit: Yes Status: Acute Causative organism: MSSA. Source: Likely right foot/ankle infection. Blood cultures obtained 04/09/18 were +2 out of 2 sets. Complicated if the source is osteomyelitis. At this point, the patient has 2 minor [place] criteria. No endocarditis stigmata noted on exam. Repeat blood cultures drawn 04/11/18 are pending x 2 sets. Check rheumatoid factor. Continue Ancef 2 g IV every 8 hours. Await repeat blood cultures. Will need TTE and likely a ISRA[place] prior to discharge. Duration of treatment depends on the clinical picture. Monitor renal function and dose adjust antibiotics. Avoid insertion of long-term IV access until repeat blood cultures are negative 48 hours. (3) Osteomyelitis of ankle, right, acute Current Visit: No Status: Acute Location: Right ankle. Causative organism: MSSA. Previously treated with 6 weeks of IV nafcillin followed by 2 weeks of oral Keflex. Clinically, the patient improved, but his inflammatory markers did remain elevated. Previous imaging revealed findings consistent with osteomyelitis. Podiatry was consulted, but did not recommend any surgical intervention at that time, so we treated aggressively with IV and oral antibiotics. Podiatry consulted. Await their recommendations. We will defer further imaging to the podiatry team. Check ESR and CRP. Wound culture obtained on admission is positive for MSSA as well. Wound care and activity restrictions per the podiatry team. (4) Hyponatremia Current Visit: Yes Status: Acute We secondary to poor by mouth intake. Improved. Further workup and management per the primary team. (5) Low back pain Current Visit: Yes Status: Acute CT scan of the lumbar spine negative for acute abnormality. Likely secondary to fall. Pain management per the primary team. Qualifiers: Chronicity: acute Back pain laterality: midline Sciatica presence: unspecified whether sciatica present Qualified Code(s): M54.5 - Low back pain (6) Fall Current Visit: Yes Status: Acute Qualifiers: Encounter type: subsequent encounter Qualified Code(s): W19.XXXD - Unspecified fall, subsequent encounter (7) Weakness Current Visit: Yes Status: Acute (8) Hypokalemia Current Visit: Yes Status: Resolved Likely secondary to poor by mouth intake. Resolved. (9) Diabetes mellitus Current Visit: Yes Status: Chronic Recommend aggressive glucose monitoring and control to promote wound healing and prevent reinfection. Management per the primary team. 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 transplanted heart: [place] heart Associated angina: without angina Qualified Code(s): I25.10 - Atherosclerotic heart disease of [place] coronary artery without angina pectoris - Subjective Interval history: Patient seen and examined. No acute events noted overnight. Patient states overall he does not feel well. Denies any fevers or chills or rigors. Denies any chest pain, shortness of breath, or cough. He does report some intermittent palpitations. He denies any nausea or vomiting or diarrhea, but does report a poor appetite. He denies any abdominal pain. It does report some difficulty starting his urine stream, but denies dysuria or urinary frequency. He denies any flank pain, but does report chronic back pain. He also complains of osteoarthritis pain in his bilateral knees that is at baseline. He denies any oral thrush or new skin lesions. Infect Dis PN-Objective Data - Labs CBC & Chem 7: 04/11/18 06:48 04/11/18 06:48 Labs: Laboratory Results - last 24 hr 04/10/18 04/10/18 04/10/18 13:10 15:23 15:23 WBC RBC Hgb Hct MCV MCH MCHC RDW Plt Count MPV ESR Sodium Potassium Chloride Carbon Dioxide BUN Creatinine Est GFR ( Amer) Est GFR (Non-Af Amer) BUN/Creatinine Ratio Glucose POC Glucose 147 H Calculated Osmolality Lactic Acid 1.2 Calcium Magnesium 2.1 C-Reactive Protein Rheumatoid Factor 04/10/18 04/10/18 04/11/18 17:28 21:26 06:48 WBC 13.8 H RBC 3.16 L Hgb 9.3 L Hct 28.2 L MCV 89.2 MCH 29.4 MCHC 33.0 RDW 14.6 H Plt Count 235 MPV 11.3 ESR Sodium Potassium Chloride Carbon Dioxide BUN Creatinine Est GFR ( Amer) Est GFR (Non-Af Amer) BUN/Creatinine Ratio Glucose POC Glucose 168 H 101 H Calculated Osmolality Lactic Acid Calcium Magnesium C-Reactive Protein Rheumatoid Factor 04/11/18 04/11/18 04/11/18 06:48 06:59 10:29 WBC RBC Hgb Hct MCV MCH MCHC RDW Plt Count MPV ESR 106 H Sodium 130 L Potassium 3.7 Chloride 98 Carbon Dioxide 22 L BUN 13 Creatinine 0.55 L Est GFR ( Amer) > 60 Est GFR (Non-Af Amer) > 60 BUN/Creatinine Ratio 24 Glucose 90 POC Glucose 103 H Calculated Osmolality 270 L Lactic Acid Calcium 8.2 L Magnesium C-Reactive Protein Rheumatoid Factor 04/11/18 04/11/18 04/11/18 10:29 10:29 11:53 WBC RBC Hgb Hct MCV MCH MCHC RDW Plt Count MPV ESR Sodium Potassium Chloride Carbon Dioxide BUN Creatinine Est GFR ( Amer) Est GFR (Non-Af Amer) BUN/Creatinine Ratio Glucose POC Glucose 169 H Calculated Osmolality Lactic Acid Calcium Magnesium C-Reactive Protein 286 H Rheumatoid Factor 10 Cultures: Cultures 04/11/18 06:40 Blood Culture - Preliminary Peripheral Venipuncture Culture is incubating and being continuously monitored for growth. Final report to follow. 04/11/18 06:48 Blood Culture - Preliminary Peripheral Venipuncture Culture is incubating and being continuously monitored for growth. Final report to follow. Exam - Constitutional Vitals: Temp Pulse Resp BP Pulse Ox 98.7 F 95 17 125/65 94 04/11/18 15:51 04/11/18 15:51 04/11/18 15:51 04/11/18 15:51 04/11/18 15:51 General appearance: cooperative, morbidly obese, no acute distress - Head Head exam: Present: atraumatic, normal inspection, normocephalic - Eye Eye exam: Present: EOMI, normal appearance, PERRL Pupils: Present: normal accommodation Additional comments: No subconjunctival hemorrhage noted. - ENT ENT exam: Present: mucous membranes moist - Neck Neck exam: Present: normal inspection - Respiratory Respiratory exam: Present: CTAB. Absent: rales, respiratory distress, rhonchi, wheezes - Cardiovascular Cardiovascular exam: Present: RRR, +S1, +S2 - GI/Abdominal GI/Abdominal exam: Present: distended (obese), normal bowel sounds, soft. Absent: tenderness - Extremities Exam Additional comments: Right foot dressing C/D/I. - Back Exam Back exam: Present: normal inspection. Absent: paraspinal tenderness, vertebral tenderness - Neurological Exam Neurological exam: Present: alert, oriented X3, no focal deficits - Psychiatric Psychiatric exam: Present: normal affect, normal mood - Skin Skin exam: Present: dry, intact, normal color, warm Additional comments: No endocarditis stigmata noted. Consult Discharge Plan - Plan Referrals: Myron Henderson [Primary Care Provider] - - Attending Attestation I examined this patient and my medical decision-making was reviewed with the Resident Physician. I agree with the documented findings, disposition and treatment plan as described except to the extent set forth below.
--- NOTE | 2018-04-11 16:30 | Podiatry Consult Note ---
Date of Encounter: 04/11/18 Time of Encounter: 12:00 Assessment and Plan (1) Osteomyelitis Current visit: No Status: Acute Assessment: Ulceration s/p fall to right ankle with associated bacterial infection- 2/2 positive blood cultures for MRSA- Patient currently receiving ancef - wbc 13.8 temp 99.3 Due to continued elevated WBC and temp will obtain MRI to reassess and look for possible abscess formation Will likely need formal debridement in OR with - discussed at bedside ID on and antibiotic recommendations appreciated- Ancef Flushed wounds with saline Adaptic, 4x4 and bulk dressing applied Do not allow to become saturated, change PRN Elevate at all times Minimal weight bearing to RLE. Foot xray as noted below- no acute abnormality noted Foot X-Ray 04/09/18 01:41 IMPRESSION: Severe neuropathic disease in the midfoot, with heterotopic bone formation. No definite acute abnormality is seen. No radiopaque foreign object. Qualifiers: Osteomyelitis type: subacute Osteomyelitis location: ankle Laterality: right Qualified Code(s): M86.271 - Subacute osteomyelitis, right ankle and foot History of Present Illness HPI: Mr. Newsome is a 63 year old male with a past medical history of asthma, COPD, DM, HLD, CAD, CABG, history of osteomyelitis and chacot of the right ankle. Discharged 12/2017 on antibiotics for osteomyelitis. Hx of MRSA to wound and current positive blood cultures 2/2. Presented to the ER following a fall when he was trying to get out of bed .He is followed by in [facility] for left ankle ulceration and was last seen on 03/23 where wounds were non impressive and no bacterial infection, erythema drainage or edema was noted. He reports chronic right ankle wound. Patient reports he is having fevers and chills. She reports associated decreased urinary output and generalized weakness and loss of appetite . Workup in the ER was significant for hypoosmolar hyponatremia, hypokalemia and leukocytosis. Spine imaging, head imaging and foot imaging shows no acute processes. On arrival dressing is intact to RLE however there is stikethrough yellow drainage to dressing. Patient reports profound pain to foot and ankle. Past Med Surg Social Fam HX - Past Medical History Medical history: arthritis, asthma, COPD, diabetes, GERD, hyperlipidemia, other Additional medical history: RBOCK. DJD Psychiatric history: depression - Past Surgical History Surgical History: appendectomy, cataract, cholecystectomy, coronary bypass (CABG ), herniorrhaphy Additional surgical history: KNEE SURGERY - Social History Smoking Status: Former smoker Smokeless Tobacco Status: No Alcohol use: none Drug use: none - Family History Mother Living Status: Hx Family Cardiac Disorders: Yes (CHF) Hx Family Endocrine Disorder: Yes (DM) Father Living Status: Hx Family Cardiac Disorders: Yes (ID) Medications and Allergies Amlodipine Besylate 10 mg PO DAILY 07/11/17 [History] Aspirin 81 mg PO DAILY 07/11/17 [History] Atorvastatin Calcium 40 mg PO HS 07/11/17 [History] Clopidogrel [Plavix] 75 mg PO DAILY 07/11/17 [History] EPINEPHrine [Epipen] 0.3 mg IJ ONCE PRN 07/11/17 [History] Fluticasone/Salmeterol [Advair Hfa 230-21 Mcg Inhaler] 2 puff IH BID 07/11/17 [ History] Folic Acid 1 mg PO DAILY 07/11/17 [History] Gabapentin [Neurontin] 800 mg PO QID 07/11/17 [History] Insulin Human Regular [HumuLIN R] 100 unit IJ TID 07/11/17 [History] Metoprolol XL (24 HR) Succ [Toprol Xl] 50 mg PO DAILY 07/11/17 [History] Nitroglycerin [Nitrostat] 0.4 mg SL Q5M PRN 07/11/17 [History] Omeprazole [PriLOSEC] 20 mg PO DAILY 07/11/17 [History] Oxygen 2 l NS HS 07/11/17 [History] Potassium Chloride [Klor-Con 10] 10 meq PO DAILY 07/11/17 [History] Tiotropium [Spiriva] 1 puff IH DAILY 07/11/17 [History] Bisacodyl [Woman's Laxative] 5 - 20 mg PO HS PRN 01/20/18 [History] Empagliflozin [Jardiance] 10 mg PO DAILY 01/20/18 [History] FLUoxetine HCl [Prozac] 60 mg PO DAILY 01/20/18 [History] Furosemide [Lasix] 120 mg PO DAILY 01/20/18 [History] Montelukast [Singulair] 10 mg PO DAILY 01/20/18 [History] Morphine Sulfate/Naltrexone [Embeda ER 80-3.2 mg Capsule] 1 cap PO BID 01/20/18 [History] Pramlintide Acetate [Symlinpen 120] 120 mg IJ TID 01/20/18 [History] Ibuprofen [Motrin] 800 mg PO Q6HR 02/09/18 [History] 3 Allergy/AdvReac Type Severity Reaction Status Date / Time dapagliflozin [From [facility]] Allergy Hives Verified 01/20/18 19:08 naphazoline Allergy Hives Verified 01/20/18 19:08 cath DYE Allergy Hives Uncoded 01/20/18 19:08 All Systems Reviewed: As per HPI Physical Exam - Constitutional Vitals: Temp Pulse Resp BP Pulse Ox 98.7 F 95 17 125/65 94 04/11/18 15:51 04/11/18 15:51 04/11/18 15:51 04/11/18 15:51 04/11/18 15:51 General appearance: cooperative, morbidly obese, no acute distress Exam: General Examination: CONSTITUTIONAL: Alert, oriented, in no acute distress, non-toxic. EXTREMITIES: CFT 3 seconds all toes. Edema +1 and pedal pulses palpable. SKIN: Skin with decreased turgor, decreased subcutaneous tissue, skin thin and shiny with trophic changes associated with comorbidities as described in history.. ULCER: There is a large ulceration to the lateral aspect of the left ankle measuring 0.5cmx0.5cm with 100% yellow fibrous tissue to base- 0.4cm in depth but unable to fully assess due to patients inability to turn or lift leg and fibrous tissue within base. There is associated edema, erythema and warmth surrounding entire ankle. There is another open ulceration to dorsal aspect of ankle measuring [id number] with 100% yellow fibrous tissue to base. There is a large amount of thick yellow malodorous drainage from both wounds. There is warmth and pain to touch. There is no ascending cellulitis noted at this time. There is no noted probe to bone. NEUROLOGIC: Diminshed sensation to light or moderate touch MUSCULOSKELETAL: charcot deformity of RLE foot and ankle Results - Labs Result Diagrams: 04/11/18 06:48 04/11/18 06:48 Labs: Abnormal lab results WBC 13.8 K/mcL (4.3-11.1) H 04/11/18 06:48 RBC 3.16 M/mcL (4.19-5.50) L 04/11/18 06:48 Hgb 9.3 g/dL (12.9-16.9) L 04/11/18 06:48 Hct 28.2 % (37.5-50.1) L 04/11/18 06:48 RDW 14.6 % (11.5-14.5) H 04/11/18 06:48 Neutrophils # 13.9 K/mcL (1.6-8.9) H 04/10/18 05:49 Monocytes # 1.5 K/mcL (0.0-1.3) H 04/10/18 05:49 ESR 106 mm/hr (0-10) H 04/11/18 10:29 Sodium 130 mEq/L (136-145) L 04/11/18 06:48 Carbon Dioxide 22 mEq/L (23-29) L 04/11/18 06:48 Creatinine 0.55 mg/dL (0.70-1.30) L 04/11/18 06:48 POC Glucose 169 mg/dL (70-99) H 04/11/18 11:53 Hemoglobin A1c 7.6 % (-5.6) H 04/10/18 05:49 Calculated Osmolality 270 (280-300) L 04/11/18 06:48 Calcium 8.2 mg/dL (8.6-10.3) L 04/11/18 06:48 C-Reactive Protein 286 mg/L (Less than 10) H 04/11/18 10:29 Staphylococcus sp PCR DETECTED (Not Detect) A 04/09/18 20:56 Staph aureus (PCR) DETECTED (Not Detect) A 04/09/18 20:56 H & H 04/11/18 Range/Units 06:48 Hgb 9.3 L (12.9-16.9) g/dL Hct 28.2 L (37.5-50.1) % All other labs normal. Consult Discharge Plan - Plan Referrals: Myron Henderson [Primary Care Provider] -
--- NOTE | 2018-04-11 16:41 | Internal Med Progress Note ---
Hospitalist Progress Note - Encounter Date of Encounter: 04/11/18 Time of Encounter: 15:08 - Subjective Interval History: Pt's , baltazar, and sister-shayy at bedside. Discussed current plan of care with pt and family. Pt states he has had MRSA before. - Exam Vitals: Temp Pulse Resp BP Pulse Ox 98.7 F 95 17 125/65 94 04/11/18 15:51 04/11/18 15:51 04/11/18 15:51 04/11/18 15:51 04/11/18 15:51 Exam: General: Alert and oriented. Comfortable at this time. Morbidly obese. Skin: Normal color, no rash, no lesions. H: Normocephalic. EENT: EOMI, pupils equal, round and reactive. Mucus membranes moist. No lesion. Cardiovascular: Normal S1 & S2, no rubs, murmurs or gallops. No JVD. Pulse regular. Heart sound distant. Lungs: Normal breath sounds, no wheezes or crackles. Abdomen: Soft, non-tender, no rigidity. Normal bowel sounds. Extremities: Edema present bilateral extremities - R greater than L. Dressing intact on R foot. Stasis dermatitis bilaterally. Charcot foot bilaterally. No splinter hemorrhages noted. Neurological: Normal cognition and motor skills. Pulses: Carotid and radial pulses normal +2. Rest of the physical exam is non contributory - Assessment and Plan (1) Sepsis Current Visit: Yes Status: Acute Assessment and Plan: ID following. Pt's cultures showing staph aureus and awaiting final results. Vancomycin and Zosyn for now. ID and Orthopedic on board (2) Diabetes mellitus Current Visit: Yes Status: Chronic Assessment and Plan: Better controlled. Currently on basal and prandial insulin. Continue to monitor sugars and cover. (3) Hypertension Current Visit: Yes Status: Chronic Assessment and Plan: Amlodipine (4) CAD (coronary artery disease) Current Visit: Yes Status: Chronic Assessment and Plan: ASA and Atorvastatin (5) BROCK (obstructive sleep apnea) Current Visit: Yes Status: Chronic Assessment and Plan: Continue with BiPAP QHS (6) Osteomyelitis of ankle, right, acute Current Visit: No Status: Acute Assessment and Plan: Podiatry on board and awaiting further recommendation. (7) Hyponatremia Current Visit: Yes Status: Acute Assessment and Plan: Slowly improving. Na up from 130 to 133. Will continue to monitor. (8) Low back pain Current Visit: Yes Status: Acute Assessment and Plan: Continue with prn pain control. (9) Fall Current Visit: Yes Status: Acute Assessment and Plan: PT/OT consult Fall precautions (10) Weakness Current Visit: Yes Status: Acute (11) Hypokalemia Current Visit: Yes Status: Resolved Assessment and Plan: Corrected (12) Bacteremia Current Visit: Yes Status: Acute Assessment and Plan: MSSA. ID following. (13) Abscess of right foot Current Visit: Yes Status: Acute Assessment and Plan: Podiatry following. Will take to surgery today for incision and drainage. Was initially placed on Vancomycin and Zosyn for possible MRSA ID on board and pt on Rocephin. DVT Prophylaxis: Lovenox - Summary of Assessment and Plan Summary of Assessment and Plan: Mr. Newsome is a 63 year old male with a past medical history of asthma, COPD, DM , HLD, CAD, CABG, history of osteomyelitis of the right ankle. Discharged 2017 on antibiotics. Presented to the ER following a mechanical fall when he was trying to get out of bed. - Time Spent with Patient Total time spent is greater than 50% in coordination of care (as documented) at patient's floor/unit and/or counseling patient: 25 - 35 minutes Plan of Care Discussed with: patient Internal Medicine: Result - Labs CBC & Chem 7: 04/12/18 12:46 04/12/18 12:46 Labs: Short CBC 04/11/18 Range/Units 06:48 WBC 13.8 H (4.3-11.1) K/mcL Hgb 9.3 L (12.9-16.9) g/dL Hct 28.2 L (37.5-50.1) % Plt Count 235 (140-400) K/mcL BMP 04/11/18 06:48 Sodium 130 L Potassium 3.7 Chloride 98 Carbon Dioxide 22 L BUN 13 Creatinine 0.55 L Glucose 90 Calcium 8.2 L Consult Discharge Plan - Plan Referrals: Myron Henderson [Primary Care Provider] - (1) Sepsis Qualifiers: Sepsis type: methicillin resistant Staphylococcus aureus Qualified Code(s): A41.02 - Sepsis due to Methicillin resistant Staphylococcus aureus (2) Diabetes mellitus Qualifiers: Diabetes mellitus type: type 2 Diabetes mellitus snf insulin use: with snf use Diabetes mellitus complication status: with neurologic complications Diabetes mellitus complication detail: with polyneuropathy Qualified Code(s): E11.42 - Type 2 diabetes mellitus with diabetic polyneuropathy; 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 transplanted heart: [place] heart Associated angina: without angina Qualified Code(s): I25.10 - Atherosclerotic heart disease of [place] coronary artery without angina pectoris (8) Low back pain Qualifiers: Chronicity: acute Back pain laterality: midline Sciatica presence: unspecified whether sciatica present Qualified Code(s): M54.5 - Low back pain (9) Fall Qualifiers: Encounter type: subsequent encounter Qualified Code(s): W19.XXXD - Unspecified fall, subsequent encounter
[2018-04-11] MEDS ORDERED: Perflutren Lipid Microsphere 1.3 ML in 0.9 % Sodium Chloride 8.7 ML IVP ONE (16:46)
[2018-04-11] MEDS: Insulin DETEMIR 100 UNIT/ML X5UNITS SQ SCH (21:48)
[2018-04-12] MEDS: *HR* Enoxaparin 40 MG/0.4 ML SYRINGE SQ SCH (05:02)
[2018-04-12] MEDS ORDERED: Vancomycin 1,000 MG, Sodium Chloride IRRigation 1,000 ML IR ONE (06:00)
[2018-04-12] MEDS: Aspirin 81 MG TAB.CHEW PO SCH (08:04)
[2018-04-12] MEDS: MORPHINE PO SCH ×3 (08:05→18:00)
[2018-04-12] MEDS: Insulin LISPRO 300 UNITS/3 ML VIAL SQ SCH ×3 (08:05→21:02)
[2018-04-12] MEDS: NALTREXONE PO SCH ×3 (08:05→18:00)
[2018-04-12] MEDS: amLODIPine 5 MG TABLET PO SCH (08:05)
[2018-04-12] MEDS: Ondansetron 4 MG/2 ML VIAL IVP PRN ×2 (08:15→22:57)
--- NOTE | 2018-04-12 09:41 | Podiatry Progress Note ---
Date of Encounter: 04/11/18 Time of Encounter: 18:35 - Assessment and Plan (1) Abscess of right foot Current Visit: Yes Status: Acute Patient admitted with right diabetic foot infection and abscess of the right foot/ankle which she says occurred after a fall this weekend in the bathroom at home. Discussed condition with patient and that he is high risk for limb loss. Also discussed his deformity. Patient will be brought to the operating room for an incision and drainage of the right foot/ankle and debridement of nonviable tissue and bone biopsy. No guarantees were made that his limb could be salvaged and he understood that he could end up with an amputation of the leg. No guarantees were made as to the outcome or that he would keep his leg. Objective - Vital Signs Vital Signs: Vital Signs Temp Pulse Resp BP Pulse Ox 04/12/18 08:02 99.1 F 83 16 112/62 100 04/12/18 04:40 19 98 04/12/18 03:14 97.9 F 83 16 107/60 98 04/12/18 00:16 98.4 F 93 17 125/65 97 04/11/18 15:51 98.7 F 95 17 125/65 94 04/11/18 11:31 99.6 F 90 16 110/69 93 Intake and Output 04/11/18 04/12/18 04/12/18 23:59 07:59 15:59 Intake Total 1210 / 1210 100 / 100 Output Total 1000 / 1000 550 / 550 Balance 210 / 210 -450 / -450 Intake: IV Fluids 1210 / 1210 100 / 100 Definity 1.3 ML In Normal 10 / 10 Saline Flush 8.7 ML @ 1200 mls/ hr IVP ONCE ONE Rx#:[id number] Ancef 2,000 MG In 0.9 % Sodium 100 / 100 100 / 100 Chloride 100 ML @ 200 mls/hr IVPB Q8HR JIMMY Rx#:[id number] Output: Urine 1000 / 1000 550 / 550 Other: Weight 136.9 kg Blood Glucose* 214 91 Patient Weight 04/12/18 23:59 Weight 136.9 kg - Lab Result Diagrams: 04/11/18 06:48 04/11/18 06:48 Labs: Abnormal lab results WBC 13.8 K/mcL (4.3-11.1) H 04/11/18 06:48 RBC 3.16 M/mcL (4.19-5.50) L 04/11/18 06:48 Hgb 9.3 g/dL (12.9-16.9) L 04/11/18 06:48 Hct 28.2 % (37.5-50.1) L 04/11/18 06:48 RDW 14.6 % (11.5-14.5) H 04/11/18 06:48 Neutrophils # 13.9 K/mcL (1.6-8.9) H 04/10/18 05:49 Monocytes # 1.5 K/mcL (0.0-1.3) H 04/10/18 05:49 ESR 106 mm/hr (0-10) H 04/11/18 10:29 Sodium 130 mEq/L (136-145) L 04/11/18 06:48 Carbon Dioxide 22 mEq/L (23-29) L 04/11/18 06:48 Creatinine 0.55 mg/dL (0.70-1.30) L 04/11/18 06:48 POC Glucose 214 mg/dL (70-99) H 04/11/18 20:50 Hemoglobin A1c 7.6 % (-5.6) H 04/10/18 05:49 Calculated Osmolality 270 (280-300) L 04/11/18 06:48 Calcium 8.2 mg/dL (8.6-10.3) L 04/11/18 06:48 C-Reactive Protein 286 mg/L (Less than 10) H 04/11/18 10:29 Staphylococcus sp PCR DETECTED (Not Detect) A 04/09/18 20:56 Staph aureus (PCR) DETECTED (Not Detect) A 04/09/18 20:56 Microbiology, Last 48 Hours 04/11/18 06:40 Blood Culture - Preliminary Peripheral Venipuncture Culture is incubating and being continuously monitored for growth. Final report to follow. 04/11/18 06:48 Blood Culture - Preliminary Peripheral Venipuncture Culture is incubating and being continuously monitored for growth. Final report to follow. Consult Discharge Plan - Plan Referrals: Myron Henderson [Primary Care Provider] -
--- NOTE | 2018-04-12 12:39 | Anesthesia Evaluation PreOp ---
Date of Encounter: 04/12/18 Time of Encounter: 14:23 - Past History Planned Operation: Right Ankle I & D Cardiac History: [place] ([place] x 2 in 2016), HTN, Hyperlipidemia, Cardiac Surgery ( CABG x 4), Cardiac Stent (stent x 1) Pulmonary History: Former smoker (quit in 1984), Asthma, COPD, Snore, BROCK Dx ( uses CPAP) RESEARCH LIBRARIAN History: Denies Any Significant HX Other Medical History: Diabetes Type II, GERD, Other (obesity BMI=48.7) Anesthesia History: No Prior Anesthetic Complications, Past Anesthesia Alcohol Use: none Drug use: none Medications and Allergies Amlodipine Besylate 10 mg PO DAILY 07/11/17 [History] Aspirin 81 mg PO DAILY 07/11/17 [History] Atorvastatin Calcium 40 mg PO HS 07/11/17 [History] Clopidogrel [Plavix] 75 mg PO DAILY 07/11/17 [History] EPINEPHrine [Epipen] 0.3 mg IM ONCE PRN 07/11/17 [History] Fluticasone/Salmeterol [Advair Hfa 230-21 Mcg Inhaler] 2 puff IH BID 07/11/17 [ History] Folic Acid 1 mg PO DAILY 07/11/17 [History] Gabapentin [Neurontin] 800 mg PO QID 07/11/17 [History] Insulin Human Regular [HumuLIN R] 25 unit SQ TID 07/11/17 [History] Nitroglycerin [Nitrostat] 0.4 mg SL Q5M PRN MDD [id number] call 911 07/11/17 [ History] Omeprazole [PriLOSEC] 20 mg PO DAILY 07/11/17 [History] Oxygen 2 l NS HS 07/11/17 [History] Potassium Chloride [Klor-Con 10] 10 meq PO DAILY 07/11/17 [History] Empagliflozin [Jardiance] 10 mg PO DAILY 01/20/18 [History] FLUoxetine HCl [Prozac] 60 mg PO DAILY 01/20/18 [History] Furosemide [Lasix] 80 mg PO BID 01/20/18 [History] Montelukast [Singulair] 10 mg PO DAILY 01/20/18 [History] Morphine Sulfate/Naltrexone [Embeda ER 80-3.2 mg Capsule] 1 cap PO BID 01/20/18 [History] Pramlintide Acetate [Symlinpen 120] 120 mg SQ TIDWM 01/20/18 [History] Albuterol Neb [Proventil Neb] 2.5 mg IH Q4HR PRN 04/11/18 [History] Insulin DETEMIR [Levemir Flextouch] 30 unit SQ TID 04/11/18 [History] Isosorbide MONOnitrate (24 HR) [Imdur] 30 mg PO DAILY 04/11/18 [History] Losartan/Hydrochlorothiazide [Hyzaar 100-12.5 Tablet] 1 tab PO DAILY 04/11/18 [ History] Magnesium Oxide [Magnesium] 400 mg PO DAILY 04/11/18 [History] Multivitamin [One Daily Multivitamin] 1 tab PO DAILY 04/11/18 [History] [place]-3/Dha/Epa/Fish Oil [Fish Oil 1,000 mg Softgel] 1 cap PO DAILY 04/11/18 [ History] 3 Allergy/AdvReac Type Severity Reaction Status Date / Time dapagliflozin [From [facility]] Allergy Hives Verified 01/20/18 19:08 naphazoline Allergy Hives Verified 01/20/18 19:08 cath DYE Allergy Hives Uncoded 01/20/18 19:08 - Meds/Allergy Pre-op Review Medications Reviewed: Yes Allergies Reviewed: Yes Beta Blockers on Current Med List: No Anesthesia Results - Labs 04/12/18 12:46 04/12/18 12:46 - Imaging EKG: report reviewed (01/26/2018 SINUS RHYTHM WITH FIRST DEGREE AV BLOCK PROBABLE INFERIOR MYOCARDIAL INFARCTION [35 ms Q WAVE IN II/aVF], PROBABLY OLD WITH POSTERIOR EXTENSION [PROMINENT R WAVE IN V1 WARNING: DATA QUALITY MAY AFFECT INTERPRETATION) Additional studies: 04/11/2018 Echo Impressions: Technically sub-optimal due to body habitus. LVEF 55%. Normal LV chamber size, wall thickness and function. Moderate left ventricular diastolic dysfunction. Atypical septal motion consistent with post-operative status. Grossly normal right ventricular structure and function. Mild aortic sclerosis suggested by Doppler. Mean gradient 10 mmHg. No evidence of pulmonary hypertension. Inadequate images to evaluate for endocarditis. Consider [place] if clinically indicated. Findings: Study Quality * Technically sub-optimal due to body habitus. ECG Findings * Normal sinus rhythm. Left Ventricle * LVEF 55%. * Normal LV chamber size, wall thickness and function. * Moderate left ventricular diastolic dysfunction. * Atypical septal motion consistent with post-operative status. Right Ventricle * Grossly normal right ventricular structure and function. Left Atrium * Normal left atrial size. Right Atrium * Normal right atrial size. Aortic Valve * Aortic valve not well visualized. * Mild aortic sclerosis suggested by Doppler. Mean gradient 10 mmHg. * No aortic regurgitation. Mitral Valve * Normal mitral valve structure and function. * No mitral regurgitation. * No mitral stenosis. Tricuspid Valve * Normal tricuspid valve structure and function. * Trace tricuspid regurgitation. * No evidence of pulmonary hypertension. Pulmonic Valve * Pulmonic valve not well visualized. * No pulmonic regurgitation. Aorta * Normally sized aortic root. Pericardium * The pericardium appears normal. IVC * Normal IVC dimensions and inspiratory collapse. Pulmonary Artery * Normal visualized portions of the main pulmonary artery. Anesthesia Exam Vital Signs/O2 Sat/Glucose, Most Recent Temp Pulse Resp BP Pulse Ox 99.8 F H 81 16 121/67 94 04/12/18 11:22 04/12/18 11:22 04/12/18 11:22 04/12/18 11:22 04/12/18 11:22 Blood Glucose* 113 Height: 5'6''/1.68m Weight: 301 lbs/136.9 kg NPO (# of Hours): 8 Pain Scale: 10 (right ankle) Pain Scale Used: Numeric (1 - 10) - HEENT Pupil (Motor): EOMI Mallampati: III Teeth: Edentulous Oral Opening: Greater than 3 - RESEARCH LIBRARIAN LOC: Oriented RESEARCH LIBRARIAN Motor: Normal RUE, Normal LUE, Normal Face, Deficit RLE, Deficit LLE RESEARCH LIBRARIAN Sensory: Normal: RUE, LUE, RLE, LLE, Face - Cardiac Rhythm: Regular Murmur: None - Pulmonary Breath Sounds: bilateral Clear Respiratory Effort: Symmetrical Anesthesia Assess/Plan ASA Score: 3 Modified Jluis Scale for Level of Consciousness: Cooperative, oriented, and tranquil Anesthetic Plan: MAC Monitoring Plan: Standard Monitors
--- NOTE | 2018-04-12 12:49 | Infectious Disease Progress No ---
Date of Encounter: 04/12/18 Time of Encounter: 12:47 - Assessment and Plan (1) Sepsis Current Visit: Yes Status: Acute The patient has 3 sepsis criteria. Likely secondary to bacteremia. Improved. Tachycardia resolved. Afebrile overnight. No labs from today. Blood cultures obtained 04/09/18 her +2 out of 2 sets from MSSA per PCR. Repeat blood cultures 2 sets drawn 04/11/18 are pending. Check CBC and BMP now. Qualifiers: Sepsis type: methicillin resistant Staphylococcus aureus Qualified Code(s) : A41.02 - Sepsis due to Methicillin resistant Staphylococcus aureus (2) Bacteremia Current Visit: Yes Status: Acute Causative organism: MSSA. Source: Likely right foot/ankle infection. Blood cultures obtained 04/09/18 were +2 out of 2 sets. Complicated due to the presence of OM. At this point, the patient has 2 minor [place] criteria. No endocarditis stigmata noted on exam. Repeat blood cultures drawn 04/11/18 are pending x 2 sets. Check rheumatoid factor. Continue Ancef 2 g IV every 8 hours. Await repeat blood cultures. TTE: limited study. Recommend [place] prior to discharge. Duration of treatment depends on the clinical picture, but likely 6 weeks of IV antibiotics. Monitor renal function and dose adjust antibiotics. Avoid insertion of long-term IV access until repeat blood cultures are negative 48 hours. environmental services associate to assist with discharge planning. Further recommendations from the ID team to follow pending clinical outcomes and culture results. (3) Osteomyelitis of ankle, right, acute Current Visit: No Status: Acute Location: Right ankle. Causative organism: MSSA. Previously treated with 6 weeks of IV nafcillin followed by 2 weeks of oral Keflex. Clinically, the patient improved, but his inflammatory markers did remain elevated. Previous imaging revealed findings consistent with osteomyelitis. Podiatry was consulted, but did not recommend any surgical intervention at that time, so we treated aggressively with IV and oral antibiotics. MRI 04/11/18 showed findings consistent with abscess, osteomyelitis, and severe tenosynovitis. Podiatry consulted. Planning to take the patient to the OR today. Check ESR and CRP.--> 106 and 286, respectively. Wound culture obtained on admission is positive for MSSA as well. Continue antibiotics as above. Wound care and activity restrictions per the podiatry team. Duration of treatment depends on the clinical picture, but likely 6 weeks. (4) Hyponatremia Current Visit: Yes Status: Acute We secondary to poor by mouth intake. Improved. Re-check BMP now. Further workup and management per the primary team. (5) Low back pain Current Visit: Yes Status: Acute CT scan of the lumbar spine negative for acute abnormality. Likely secondary to fall. Pain management per the primary team. Qualifiers: Chronicity: acute Back pain laterality: midline Sciatica presence: unspecified whether sciatica present Qualified Code(s): M54.5 - Low back pain (6) Fall Current Visit: Yes Status: Acute Qualifiers: Encounter type: subsequent encounter Qualified Code(s): W19.XXXD - Unspecified fall, subsequent encounter (7) Weakness Current Visit: Yes Status: Acute (8) Hypokalemia Current Visit: Yes Status: Resolved Likely secondary to poor by mouth intake. Resolved. (9) Diabetes mellitus Current Visit: Yes Status: Chronic Recommend aggressive glucose monitoring and control to promote wound healing and prevent reinfection. Management per the primary team. 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 transplanted heart: [place] heart Associated angina: without angina Qualified Code(s): I25.10 - Atherosclerotic heart disease of [place] coronary artery without angina pectoris - Subjective Interval history: Patient seen and examined. No acute events noted overnight. Patient states overall he does not feel well. He complains of fevers, chills, and rigors. Denies chest pain, shortness of breath, or cough. He denies any nausea or vomiting or diarrhea, but does report a poor appetite. He denies any abdominal pain. It does report some difficulty starting his urine stream, but denies dysuria or urinary frequency. He denies any flank pain, but does report chronic back pain. He also complains of osteoarthritis pain in his bilateral knees that is at baseline. He denies any oral thrush or new skin lesions. Scheduled for the OR later today. Infect Dis PN-Objective Data - Labs CBC & Chem 7: 04/13/18 13:27 04/13/18 13:27 Labs: Laboratory Results - last 24 hr 04/11/18 04/11/18 04/11/18 06:59 15:39 20:50 POC Glucose 103 H 158 H 214 H Cultures: Cultures 04/11/18 06:40 Blood Culture - Preliminary Peripheral Venipuncture Culture is incubating and being continuously monitored for growth. Final report to follow. 04/11/18 06:48 Blood Culture - Preliminary Peripheral Venipuncture Culture is incubating and being continuously monitored for growth. Final report to follow. - Impressions Impressions Ankle MRI 04/11/18 13:22 IMPRESSION: 1. Soft tissue ulceration superficial to the lateral malleolus with an underlying complex fluid collection measuring approximately 5.5 x 1.4 x 3.6 cm appearing to communicate with the tibiotalar and subtalar joint spaces. Findings are suspicious for an abscess. 2. Severe chronic fragmentation, disorganization, and marrow signal changes involving the hind and midfoot worsened from 01/20/2018. Given the ulceration and communicating abscess this likely represents Charcot arthropathy with superimposed osteomyelitis. No apparent involvement of the fibula. 3. Severe tenosynovitis of the posterior tibial, flexor digitorum longus, and flexor hallucis longus tendons. 4. Complete or high-grade tears of the supramalleolar peroneal tendons. 5. Mild extensor tenosynovitis. D/ / Edwin Ruby MD / Edwin Ruby MD Interpreting Provider: Edwin Ruby MD Echocardiogram 04/11/18 14:37 Impressions: Technically sub-optimal due to body habitus. LVEF 55%. Normal LV chamber size, wall thickness and function. Moderate left ventricular diastolic dysfunction. Atypical septal motion consistent with post-operative status. Grossly normal right ventricular structure and function. Mild aortic sclerosis suggested by Doppler. Mean gradient 10 mmHg. No evidence of pulmonary hypertension. Inadequate images to evaluate for endocarditis. Consider [place] if clinically indicated. Left Ventricular Wall Motion: Rest Echo Findings All wall segments showed normal motion. Findings: Study Quality * Technically sub-optimal due to body habitus. ECG Findings * Normal sinus rhythm. Left Ventricle * LVEF 55%. * Normal LV chamber size, wall thickness and function. * Moderate left ventricular diastolic dysfunction. * Atypical septal motion consistent with post-operative status. Right Ventricle * Grossly normal right ventricular structure and function. Left Atrium * Normal left atrial size. Right Atrium * Normal right atrial size. Aortic Valve * Aortic valve not well visualized. * Mild aortic sclerosis suggested by Doppler. Mean gradient 10 mmHg. * No aortic regurgitation. Mitral Valve * Normal mitral valve structure and function. * No mitral regurgitation. * No mitral stenosis. Tricuspid Valve * Normal tricuspid valve structure and function. * Trace tricuspid regurgitation. * No evidence of pulmonary hypertension. Pulmonic Valve * Pulmonic valve not well visualized. * No pulmonic regurgitation. Aorta * Normally sized aortic root. Pericardium * The pericardium appears normal. IVC * Normal IVC dimensions and inspiratory collapse. Pulmonary Artery * Normal visualized portions of the main pulmonary artery. Exam - Constitutional Vitals: Temp Pulse Resp BP Pulse Ox 99.8 F H 81 16 121/67 94 04/12/18 11:22 04/12/18 11:22 04/12/18 11:22 04/12/18 11:22 04/12/18 11:22 General appearance: cooperative, morbidly obese, no acute distress - Head Head exam: Present: atraumatic, normal inspection, normocephalic - Eye Eye exam: Present: EOMI, normal appearance, PERRL Pupils: Present: normal accommodation Additional comments: No subconjunctival hemorrhage noted. - ENT ENT exam: Present: mucous membranes moist - Neck Neck exam: Present: normal inspection - Respiratory Respiratory exam: Present: CTAB. Absent: rales, respiratory distress, rhonchi, wheezes - Cardiovascular Cardiovascular exam: Present: irregular rhythm. Absent: tachycardia - GI/Abdominal GI/Abdominal exam: Present: distended (obese), normal bowel sounds, soft. Absent: tenderness - Extremities Exam Additional comments: Right foot dressing C/D/I. - Neurological Exam Neurological exam: Present: alert, oriented X3, no focal deficits - Psychiatric Psychiatric exam: Present: normal affect, normal mood - Skin Skin exam: Present: dry, intact, normal color, warm Consult Discharge Plan - Plan Referrals: Myron Henderson [Primary Care Provider] - - Attending Attestation I examined this patient and my medical decision-making was reviewed with the Resident Physician. I agree with the documented findings, disposition and treatment plan as described except to the extent set forth below.
[2018-04-12 13:08] LABS: Basophils % 0.4 %; Eosinophils # 0.2 K/mcL (0.0-0.6); Eosinophils % 1.3 %; Hematocrit 31.1 % (37.5-50.1); Hemoglobin 10.4 g/dL (12.9-16.9); Immature Granulocytes % 0.9 % (0-4); Lymphocytes # 0.9 K/mcL (0.6-4.6); Lymphocytes % 8.1 %; Mean Corpuscular HGB Conc 33.4 g/dL (31.6-35.5); Mean Corpuscular Hemoglobin 29.8 pg (28.0-33.3); Mean Corpuscular Volume 89.1 fL (83.0-100.0); Monocytes % 9.2 %; Platelet Count 284 K/mcL (140-400); Red Blood Count 3.49 M/mcL (4.19-5.50); Red Cell Distribution Width 14.8 % (11.5-14.5); Segmented Neutrophils % 80.1 %
[2018-04-12 13:46] LABS: BUN/Creatinine Ratio 21 (6-26); Blood Urea Nitrogen 11 mg/dL (8-23); Calcium 8.3 mg/dL (8.6-10.3); Carbon Dioxide 26 mEq/L (23-29); Chloride 99 mEq/L (98-107); Glucose 76 mg/dL (70-105); Osmolality,Calculated 274 (280-300); Potassium 3.5 mEq/L (3.5-5.1); Sodium 133 mEq/L (136-145); eGFR For Non-African Americans > 60 (> 60)
--- NOTE | 2018-04-12 15:32 | Internal Med Progress Note ---
Hospitalist Progress Note - Encounter Date of Encounter: 04/12/18 Time of Encounter: 15:27 - Subjective Interval History: Pt's , baltazar, and sister-shayy at bedside. Discussed current plan of care with pt and family. Pt states he has had MRSA before. - Exam Vitals: Temp Pulse Resp BP Pulse Ox 99.8 F H 81 16 121/67 94 04/12/18 11:22 04/12/18 11:22 04/12/18 11:22 04/12/18 11:22 04/12/18 11:22 Exam: General: Alert and oriented. Comfortable at this time. Morbidly obese. Skin: Normal color, no rash, no lesions. H: Normocephalic. EENT: EOMI, pupils equal, round and reactive. Mucus membranes moist. No lesion. Cardiovascular: Normal S1 & S2, no rubs, murmurs or gallops. No JVD. Pulse regular. Heart sound distant. Lungs: Normal breath sounds, no wheezes or crackles. Abdomen: Soft, non-tender, no rigidity. Normal bowel sounds. Extremities: Edema present bilateral extremities - R greater than L. Dressing intact on R foot. Stasis dermatitis bilaterally. Charcot foot bilaterally. No splinter hemorrhages noted. Neurological: Normal cognition and motor skills. Pulses: Carotid and radial pulses normal +2. Rest of the physical exam is non contributory - Assessment and Plan (1) Sepsis Current Visit: Yes Status: Acute Assessment and Plan: Per ID "The patient has 3 sepsis criteria. Likely secondary to bacteremia. Improved. Tachycardia resolved. Afebrile overnight. No labs from today. Blood cultures obtained 04/09/18 her +2 out of 2 sets from MSSA per PCR. Repeat blood cultures 2 sets drawn 04/11/18 are pending. Check CBC and BMP now." (2) Diabetes mellitus Current Visit: Yes Status: Chronic Assessment and Plan: Better controlled. Currently on basal and prandal insulin. Continue to monitor sugars and cover. (3) Hypertension Current Visit: Yes Status: Chronic Assessment and Plan: Amlodipine (4) CAD (coronary artery disease) Current Visit: Yes Status: Chronic Assessment and Plan: ASA and Atorvastatin (5) BROCK (obstructive sleep apnea) Current Visit: Yes Status: Chronic Assessment and Plan: Continue with BiPAP QHS (6) Osteomyelitis of ankle, right, acute Current Visit: No Status: Acute Assessment and Plan: Podiatry taking pt to surgery today. (7) Hyponatremia Current Visit: Yes Status: Acute Assessment and Plan: Improving. Will continue fluids for now and continue to monitor. (8) Low back pain Current Visit: Yes Status: Acute Assessment and Plan: prn pain control (9) Fall Current Visit: Yes Status: Acute Assessment and Plan: PT/OT consult (10) Hypokalemia Current Visit: Yes Status: Resolved Assessment and Plan: Hypokalemia resolved. (11) Bacteremia Current Visit: Yes Status: Acute Assessment and Plan: ID following. Was on Vanc and Zosyn now switched to Rocephin. (12) Abscess of right foot Current Visit: Yes Status: Acute Assessment and Plan: Podiatry on board. Cont antibiotic. Surgery today. DVT Prophylaxis: Lovenox - Summary of Assessment and Plan Summary of Assessment and Plan: Pt on his way to the OR. Will continue antibiotics. - Time Spent with Patient Total time spent is greater than 50% in coordination of care (as documented) at patient's floor/unit and/or counseling patient: 25 - 35 minutes Plan of Care Discussed with: patient Internal Medicine: Result - Labs CBC & Chem 7: 04/12/18 12:46 04/12/18 12:46 Labs: Short CBC 04/12/18 Range/Units 12:46 WBC 11.2 H (4.3-11.1) K/mcL Hgb 10.4 L (12.9-16.9) g/dL Hct 31.1 L (37.5-50.1) % Plt Count 284 (140-400) K/mcL Neutrophils # 9.0 H (1.6-8.9) K/mcL BMP 04/12/18 12:46 Sodium 133 L Potassium 3.5 Chloride 99 Carbon Dioxide 26 BUN 11 Creatinine 0.52 L Glucose 76 Calcium 8.3 L - Impressions Impressions Ankle MRI 04/11/18 13:22 IMPRESSION: 1. Soft tissue ulceration superficial to the lateral malleolus with an underlying complex fluid collection measuring approximately 5.5 x 1.4 x 3.6 cm appearing to communicate with the tibiotalar and subtalar joint spaces. Findings are suspicious for an abscess. 2. Severe chronic fragmentation, disorganization, and marrow signal changes involving the hind and midfoot worsened from 01/20/2018. Given the ulceration and communicating abscess this likely represents Charcot arthropathy with superimposed osteomyelitis. No apparent involvement of the fibula. 3. Severe tenosynovitis of the posterior tibial, flexor digitorum longus, and flexor hallucis longus tendons. 4. Complete or high-grade tears of the supramalleolar peroneal tendons. 5. Mild extensor tenosynovitis. D/ / Edwin Ruby MD / Edwin Ruby MD Interpreting Provider: Edwin Ruby MD Echocardiogram 04/11/18 14:37 Impressions: Technically sub-optimal due to body habitus. LVEF 55%. Normal LV chamber size, wall thickness and function. Moderate left ventricular diastolic dysfunction. Atypical septal motion consistent with post-operative status. Grossly normal right ventricular structure and function. Mild aortic sclerosis suggested by Doppler. Mean gradient 10 mmHg. No evidence of pulmonary hypertension. Inadequate images to evaluate for endocarditis. Consider [place] if clinically indicated. Left Ventricular Wall Motion: Rest Echo Findings All wall segments showed normal motion. Findings: Study Quality * Technically sub-optimal due to body habitus. ECG Findings * Normal sinus rhythm. Left Ventricle * LVEF 55%. * Normal LV chamber size, wall thickness and function. * Moderate left ventricular diastolic dysfunction. * Atypical septal motion consistent with post-operative status. Right Ventricle * Grossly normal right ventricular structure and function. Left Atrium * Normal left atrial size. Right Atrium * Normal right atrial size. Aortic Valve * Aortic valve not well visualized. * Mild aortic sclerosis suggested by Doppler. Mean gradient 10 mmHg. * No aortic regurgitation. Mitral Valve * Normal mitral valve structure and function. * No mitral regurgitation. * No mitral stenosis. Tricuspid Valve * Normal tricuspid valve structure and function. * Trace tricuspid regurgitation. * No evidence of pulmonary hypertension. Pulmonic Valve * Pulmonic valve not well visualized. * No pulmonic regurgitation. Aorta * Normally sized aortic root. Pericardium * The pericardium appears normal. IVC * Normal IVC dimensions and inspiratory collapse. Pulmonary Artery * Normal visualized portions of the main pulmonary artery. 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 transplanted heart: [place] heart Associated angina: without angina Qualified Code(s): I25.10 - Atherosclerotic heart disease of [place] coronary artery without angina pectoris (8) Low back pain Qualifiers: Chronicity: acute Back pain laterality: midline Sciatica presence: unspecified whether sciatica present Qualified Code(s): M54.5 - Low back pain (9) Fall Qualifiers: Encounter type: subsequent encounter Qualified Code(s): W19.XXXD - Unspecified fall, subsequent encounter
[2018-04-12] MEDS ORDERED: *HR* Propofol 200 MG/20 ML VIAL IVP ONE (15:46)
[2018-04-12] MEDS ORDERED: Ondansetron 4 MG/2 ML VIAL ONE ×2 (15:46→16:56)
[2018-04-12] MEDS ORDERED: Dexamethasone 4 MG/ML VIAL ONE ×2 (15:46→16:56)
[2018-04-12] MEDS ORDERED: Propofol 500 MG/50 ML INFUS..BTL ONE (15:46)
[2018-04-12] MEDS ORDERED: Lidocaine -MPF 2% 2 ML VIAL ONE (15:46)
[2018-04-12] MEDS ORDERED: Vancomycin 1,000 MG VIAL ONE ×2 (15:47→16:08)
[2018-04-12] MEDS ORDERED: *HR* PHENYLEPHRINE 1,000 MCG/10 ML SYRINGE IVP ONE (16:37)
--- NOTE | 2018-04-12 16:54 | Operative Note ---
Date of procedure: 04/12/18 Pre-op diagnosis: abscess right ankle, osteomyelitis, charcot Post-op diagnosis: same Procedure: incision and drainage right ankle right foot talus and fibula bone biopsy Implants: none Complications: none Anesthesia: MAC Surgeon: Segundo Harrington Was there an first assistant manager present: No Estimated blood loss (cc): 50 Specimen: soft tissue ankle, bone talus and fibula-micro(AFB, fungal, Aero, anaero) p Condition: stable Disposition: PACU Procedure in Detail: Indications: 63-year-old diabetic male with severe Charcot deformity and collapse admitted to the hospital with infection of the right ankle. Patient is been receiving IV antibiotics. The patient has a wound on the anterior ankle and lateral aspect of the ankle which the lateral wound appears infected and tracks to the level of the tibiotalar joint. Some purulent drainage is expressed. MRI was performed showing lateral ankle abscess and osteomyelitis. The patient was made aware that he is high risk for limb loss and even if he is able to keep his limb at this time, it may not be reconstructable and could continue to be unstable or become more unstable and he could ultimately end up with limb loss. No guarantees were made as to the outcome of any procedure. Discussed the serious nature of his infection and he was taken to the operating room for an incision and drainage and bone biopsy. The nature of the procedures , risks versus benefits potential complications consequences of his condition and surgery were discussed at length. All of his questions and why's question were answered bedside preoperatively. The patient was taken preoperative holding and operating room placed on the operating room table in the supine position. Attention was then directed to the lateral aspect of the patient's right ankle after it was scrubbed prepped and draped in the usual sterile fashion and the following procedures began. Incision and drainage right ankle, bone biopsy right foot/ankle. Attention was directed to the lateral aspect of the patient's right ankle #15 blade was used to make an full-thickness incision over the lateral aspect of the ankle where fluctuance was present. The Metzenbaum scissors were used probe to the level of the remaining tibiotalar joint. The wound did track anjali-medially. Purulent drainage was able to be expressed laterally. The ankle joint tissue was incised and fluid released. There was a lot of serosanguinous drainage with some purulence expressed. The pulse lavage was utilized to irrigate the site and contained vancomycin. There was devitalized tissue present at the lateral aspect of the patient's ankle joint which was excised and sent for microbiology for AFB, anaerobic and aerobic and fungal as well as Gram stain. A Jamshidi needle was then utilized to obtain bone specimens from both the remaining talus and the fibula which were also sent to microbiology and pathology for examination under the microscope. After the sites and then thoroughly flushed and reinspected, no further purulence was able to be expressed. A few retention sutures with 0 Prolene were placed and the lateral aspect of the incision and wound were left open and iodoform packing was inserted. Postoperative bandaging included 4 x 4 gauze Kerlix and an Josh wrap. Patient tolerated the anesthesia and the procedure well escorted to the recovery room with vital signs stable and vascular status intact to the right foot. Adequate hemostasis was present at the right ankle. He will return to the floor.
[2018-04-12] MEDS ORDERED: *HR* Dextrose 50 % in Water (Syg) 50 ML SYRINGE IVP PRN (17:24)
[2018-04-12] MEDS ORDERED: Gadolinium Contrast Agent (WT Based) IV PRN (17:24)
[2018-04-12] MEDS ORDERED: Naloxone 0.4 MG/ML INJ IVP PRN (17:24)
[2018-04-12] MEDS ORDERED: D5% in Water 1,000 ML IVC PRN (17:24)
[2018-04-12] MEDS ORDERED: Acetaminophen 325 MG TABLET PO PRN (17:24)
[2018-04-12] MEDS ORDERED: Dextrose Gel 15 GM/37.5 ML TUBE PO PRN ×2 (17:24)
[2018-04-12] MEDS: Insulin DETEMIR 100 UNIT/ML X5UNITS SQ SCH (21:03)
[2018-04-12 22:37] LABS: Bilirubin,Urine Negative (Negative); Blood,Urine Moderate (Negative); Clarity,Urine Clear (Clear); Color,Urine Yellow (Yellow); Glucose,Urine (UA) 500 mg/dL (Normal); Ketones,Urine Trace mg/dL (Negative); Leukocyte Esterase,Urine Negative (Negative); Nitrite,Urine Negative (Negative); PH,Urine 7.5 pH Units (5.0-8.0); Protein,Urine 30 mg/dL (Neg-Trace); Specific Gravity,Urine 1.013 (1.010-1.025)
[2018-04-12 22:40] LABS: Bacteria,Urine None Seen per hpf (None-Few); Hyaline Casts,Urine None Seen per lpf (None-Few); RBC,Urine 0-3 per hpf (0-3); Squamous Epithelial Cell,Urine Moderate per lpf (None-Few); WBC,Urine 0-3 per hpf (0-3)
--- NOTE | 2018-04-12 22:40 | Event Note ---
Date of Encounter: 04/12/18 Time of Encounter: 20:54 Alerted by pts. nurse ARI Rainey that patient reported small amount of blood in his urine and painful urination this evening. Patient reported this is new and denies history of UTIs or bladder infections. Went to see patient who is resting comfortably in bed. Patient stated he has history of kidney stones and is having minor flank pain at this time but states symptoms do not feel like previous kidney stone symptoms. UA with reflex micro-and culture ordered to rule out urinary tract infection or bladder infection. If negative, consider adding retroperitoneal ultrasound to rule out presence of kidney stones. Patient and output to be monitored closely.
[2018-04-12] MEDS: Acetaminophen 325 MG TABLET PO PRN (23:25)
[2018-04-13] MEDS: *HR* Enoxaparin 40 MG/0.4 ML SYRINGE SQ SCH (05:14)
[2018-04-13] MEDS: Ondansetron 4 MG/2 ML VIAL IVP PRN ×4 (05:16→20:53)
[2018-04-13] MEDS: Aspirin 81 MG TAB.CHEW PO SCH (07:55)
[2018-04-13] MEDS: NALTREXONE PO SCH ×2 (07:56→21:25)
[2018-04-13] MEDS: amLODIPine 5 MG TABLET PO SCH (07:56)
[2018-04-13] MEDS: MORPHINE PO SCH ×2 (07:56→21:25)
[2018-04-13] MEDS: Insulin LISPRO 300 UNITS/3 ML VIAL SQ SCH ×4 (08:30→21:17)
[2018-04-13] MEDS ORDERED: NON-FORMULARY MEDICATION 1 EACH EACH PO SCH (09:00)
--- NOTE | 2018-04-13 12:09 | Infectious Disease Progress No ---
Date of Encounter: 04/13/18 Time of Encounter: 12:07 - Assessment and Plan (1) Sepsis Current Visit: Yes Status: Acute The patient has 3 sepsis criteria. Likely secondary to bacteremia. Improved. Tachycardia resolved. Afebrile overnight. No labs from today. Blood cultures obtained 04/09/18 her +2 out of 2 sets from MSSA. Repeat blood cultures 2 sets drawn 04/11/18 are NGTD. Check CBC and BMP now. Qualifiers: Sepsis type: methicillin resistant Staphylococcus aureus Qualified Code(s) : A41.02 - Sepsis due to Methicillin resistant Staphylococcus aureus (2) Bacteremia Current Visit: Yes Status: Acute Causative organism: MSSA. Source: Likely right foot/ankle infection. Blood cultures obtained 04/09/18 were +2 out of 2 sets. Complicated due to the presence of OM. At this point, the patient has 2 minor Lynn criteria. No endocarditis stigmata noted on exam. Repeat blood cultures drawn 04/11/18 are NGTD x 2 sets. Check rheumatoid factor.--> normal. Continue Ancef 2 g IV every 8 hours. Await repeat blood cultures. TTE: limited study. Recommend [place] prior to discharge. Duration of treatment depends on the clinical picture, but likely 6 weeks of IV antibiotics. Monitor renal function and dose adjust antibiotics. Consult VAT for midline placement. nutrition services worker to assist with discharge planning. Further recommendations from the ID team to follow pending clinical outcomes and culture results. (3) Osteomyelitis of ankle, right, acute Current Visit: No Status: Acute Location: Right ankle. Causative organism: MSSA. Previously treated with 6 weeks of IV nafcillin followed by 2 weeks of oral Keflex. Clinically, the patient improved, but his inflammatory markers did remain elevated. Previous imaging revealed findings consistent with osteomyelitis. Podiatry was consulted, but did not recommend any surgical intervention at that time, so we treated aggressively with IV and oral antibiotics. MRI 04/11/18 showed findings consistent with abscess, osteomyelitis, and severe tenosynovitis. Podiatry consulted. Status post I & D 04/12/[address] Harrington. Operative note reviewed. Intra-op cultures and pathology are pending. Check ESR and CRP.--> 106 and 286, respectively. Wound culture obtained on admission is positive for MSSA as well. Continue antibiotics as above. Wound care and activity restrictions per the podiatry team. Duration of treatment depends on the clinical picture, but likely 6 weeks. (4) Hyponatremia Current Visit: Yes Status: Acute We secondary to poor by mouth intake. Improved. Re-check BMP now. Further workup and management per the primary team. (5) Low back pain Current Visit: Yes Status: Acute CT scan of the lumbar spine negative for acute abnormality. Likely secondary to fall. Pain management per the primary team. Qualifiers: Chronicity: acute Back pain laterality: midline Sciatica presence: unspecified whether sciatica present Qualified Code(s): M54.5 - Low back pain (6) Fall Current Visit: Yes Status: Acute Qualifiers: Encounter type: subsequent encounter Qualified Code(s): W19.XXXD - Unspecified fall, subsequent encounter (7) Weakness Current Visit: Yes Status: Acute (8) Hypokalemia Current Visit: Yes Status: Resolved Likely secondary to poor by mouth intake. Resolved. (9) Diabetes mellitus Current Visit: Yes Status: Chronic Recommend aggressive glucose monitoring and control to promote wound healing and prevent reinfection. Management per the primary team. 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 artery [place] vs. transplanted heart: [place] heart Associated angina: without angina Qualified Code(s): I25.10 - Atherosclerotic heart disease of [place] coronary artery without angina pectoris - Subjective Interval history: Patient seen and examined. Patient noted to have blood in his urine overnight. Urinalysis negative for infection. Patient states overall he does not feel well. He complains of fevers, chills, and rigors. Denies chest pain, shortness of breath, or cough. He complains of nausea, but denies vomiting or diarrhea. He does report a poor appetite. He denies any abdominal pain. It does report some difficulty starting his urine stream, but denies dysuria or urinary frequency. He denies any flank pain, but does report chronic back pain. He also complains of osteoarthritis pain in his bilateral knees that is at baseline. He denies any oral thrush or new skin lesions. Status post I & D 03/[address] Harrington. Infect Dis PN-Objective Data - Labs CBC & Chem 7: 04/13/18 13:27 04/13/18 13:27 Labs: Laboratory Results - last 24 hr 04/12/18 04/12/18 04/12/18 08:05 11:19 12:46 WBC 11.2 H RBC 3.49 L Hgb 10.4 L Hct 31.1 L MCV 89.1 MCH 29.8 MCHC 33.4 RDW 14.8 H Plt Count 284 MPV 11.0 Immature Gran % 0.9 Seg Neutrophils % 80.1 Lymphocytes % 8.1 Monocytes % 9.2 Eosinophils % 1.3 Basophils % 0.4 Neutrophils # 9.0 H Lymphocytes # 0.9 Monocytes # 1.0 Eosinophils # 0.2 Basophils # 0.0 Sodium Potassium Chloride Carbon Dioxide BUN Creatinine Est GFR ( Amer) Est GFR (Non-Af Amer) BUN/Creatinine Ratio Glucose POC Glucose 91 103 H Calculated Osmolality Calcium Urine Color Urine Clarity Urine pH Ur Specific Beason Urine Protein Urine Glucose (UA) Urine Ketones Urine Blood Urine Nitrite Urine Bilirubin Urine Urobilinogen Ur Leukocyte Esterase Urine Microscopic RBC Urine Microscopic WBC Ur Squamous Epith Cells Urine Bacteria Hyaline Casts Ur Culture Indicated? 04/12/18 04/12/18 04/12/18 12:46 20:29 22:16 WBC RBC Hgb Hct MCV MCH MCHC RDW Plt Count MPV Immature Gran % Seg Neutrophils % Lymphocytes % Monocytes % Eosinophils % Basophils % Neutrophils # Lymphocytes # Monocytes # Eosinophils # Basophils # Sodium 133 L Potassium 3.5 Chloride 99 Carbon Dioxide 26 BUN 11 Creatinine 0.52 L Est GFR ( Amer) > 60 Est GFR (Non-Af Amer) > 60 BUN/Creatinine Ratio 21 Glucose 76 POC Glucose 111 H Calculated Osmolality 274 L Calcium 8.3 L Urine Color Yellow Urine Clarity Clear Urine pH 7.5 Ur Specific Beason 1.013 Urine Protein 30 H Urine Glucose (UA) 500 H Urine Ketones Trace H Urine Blood Moderate H Urine Nitrite Negative Urine Bilirubin Negative Urine Urobilinogen 2.0 H Ur Leukocyte Esterase Negative Urine Microscopic RBC 0-3 Urine Microscopic WBC 0-3 Ur Squamous Epith Cells Moderate H Urine Bacteria None Seen Hyaline Casts None Seen Ur Culture Indicated? NO Cultures: Cultures 04/11/18 06:40 Blood Culture - Preliminary Peripheral Venipuncture Culture is incubating and being continuously monitored for growth. Final report to follow. 04/11/18 06:48 Blood Culture - Preliminary Peripheral Venipuncture Culture is incubating and being continuously monitored for growth. Final report to follow. Serology 04/12/18 Range/Units 22:16 Urine Color Yellow (Yellow) Urine Clarity Clear (Clear) Urine pH 7.5 (5.0-8.0) pH Units Ur Specific Beason 1.013 (1.010-1.025) Urine Protein 30 H (Neg-Trace) mg/dL Urine Glucose (UA) 500 H (Normal) mg/dL Urine Ketones Trace H (Negative) mg/dL Urine Blood Moderate H (Negative) Urine Nitrite Negative (Negative) Urine Bilirubin Negative (Negative) Urine Urobilinogen 2.0 H (Normal) mg/dL Ur Leukocyte Esterase Negative (Negative) Urine Microscopic RBC 0-3 (0-3) per hpf Urine Microscopic WBC 0-3 (0-3) per hpf Ur Squamous Epith Cells Moderate H (None-Few) per lpf Urine Bacteria None Seen (None-Few) per hpf Hyaline Casts None Seen (None-Few) per lpf Ur Culture Indicated? NO (NO) Exam - Constitutional Vitals: Temp Pulse Resp BP Pulse Ox 97.6 F 105 17 163/83 99 04/13/18 08:18 04/13/18 08:18 04/13/18 08:18 04/13/18 08:18 04/13/18 08:18 General appearance: cooperative, morbidly obese, no acute distress - Head Head exam: Present: atraumatic, normal inspection, normocephalic - Eye Eye exam: Present: EOMI, normal appearance, PERRL Pupils: Present: normal accommodation Additional comments: No subconjunctival hemorrhage noted. - ENT ENT exam: Present: mucous membranes moist - Neck Neck exam: Present: normal inspection - Respiratory Respiratory exam: Present: CTAB. Absent: rales, respiratory distress, rhonchi, wheezes - Cardiovascular Cardiovascular exam: Present: RRR, +S1, +S2 - GI/Abdominal GI/Abdominal exam: Present: distended (obese), normal bowel sounds, soft, tenderness - Extremities Exam Extremities exam: Present: pedal edema (1+ RLE), tenderness (Right foot). Absent: normal inspection (Venous stasis dermatitis noted to the BLE) Additional comments: Right foot dressing C/D/I. - Neurological Exam Neurological exam: Present: alert, oriented X3, no focal deficits - Psychiatric Psychiatric exam: Present: normal affect, normal mood - Skin Skin exam: Present: dry, intact, normal color, warm Consult Discharge Plan - Plan Referrals: Myron Henderson [Primary Care Provider] - - Attending Attestation I examined this patient and my medical decision-making was reviewed with the Resident Physician. I agree with the documented findings, disposition and treatment plan as described except to the extent set forth below.
[2018-04-13] MEDS: *HR* HYDROcodone/Acet 7.5/325 mg TABLET PO PRN ×2 (12:19→20:53)
[2018-04-13] MEDS ORDERED: *HR* Promethazine 25 MG/ML VIAL IVP ONE (13:20)
[2018-04-13 14:22] LABS: BUN/Creatinine Ratio 22 (6-26); Blood Urea Nitrogen 13 mg/dL (8-23); Calcium 8.7 mg/dL (8.6-10.3); Carbon Dioxide 25 mEq/L (23-29); Chloride 96 mEq/L (98-107); Glucose 151 mg/dL (70-105); Osmolality,Calculated 277 (280-300); Potassium 3.7 mEq/L (3.5-5.1); Sodium 132 mEq/L (136-145); eGFR For Non-African Americans > 60 (> 60)
[2018-04-13 14:24] LABS: Basophils % 0.2 %; Eosinophils % 0.1 %; Hematocrit 33.2 % (37.5-50.1); Hemoglobin 10.9 g/dL (12.9-16.9); Immature Granulocytes % 1.3 % (0-4); Lymphocytes # 1.2 K/mcL (0.6-4.6); Lymphocytes % 7.2 %; Mean Corpuscular HGB Conc 32.8 g/dL (31.6-35.5); Mean Corpuscular Hemoglobin 29.4 pg (28.0-33.3); Mean Corpuscular Volume 89.5 fL (83.0-100.0); Mean Platelet Volume 10.9 fL (9.4-12.4); Monocytes # 1.1 K/mcL (0.0-1.3); Monocytes % 6.8 %; Neutrophils # 13.9 K/mcL (1.6-8.9); Platelet Count 411 K/mcL (140-400); Red Blood Count 3.71 M/mcL (4.19-5.50); Red Cell Distribution Width 14.8 % (11.5-14.5); Segmented Neutrophils % 84.4 %
--- NOTE | 2018-04-13 16:48 | Podiatry Progress Note ---
Date of Encounter: 04/13/18 Time of Encounter: 07:00 - Assessment and Plan (1) Abscess of right foot Current Visit: Yes Status: Acute s/p incision and drainage right ankle. No purulence expressed today. There is some serosanguineous drainage from the lateral ankle. Discussed surgical procedure and intraoperative findings. Follow-up cultures. Continue antibiotics per infectious disease and will continue to flush pack the wound as was done this morning. Elevation. Remain nonweightbearing to the right lower extremity. Objective - Vital Signs Vital Signs: Vital Signs Temp Pulse Resp BP Pulse Ox 04/13/18 15:40 97.9 F 106 19 177/74 97 04/13/18 12:07 98.2 F 95 18 147/76 100 04/13/18 08:18 97.6 F 105 17 163/83 99 04/13/18 02:47 98.4 F 79 17 121/71 97 04/12/18 22:38 99.5 F 89 16 114/67 98 04/12/18 19:33 100.5 F H 89 16 128/79 98 Intake and Output 04/13/18 04/13/18 04/13/18 07:59 15:59 23:59 Intake Total 100 / 100 100 / 100 Output Total 1100 / 1100 1800 / 1800 Balance -1000 / -1000 -1700 / -1700 Intake: IV Fluids 100 / 100 100 / 100 Ancef 2,000 MG In 0.9 % Sodium 100 / 100 100 / 100 Chloride 100 ML @ 200 mls/hr IVPB Q8HR [facility] Rx#:[id number] Output: Urine 1100 / 1100 Catheter 1800 / 1800 Urethral (Christensen) 900 / 900 Other: Stool Size Smear Stool Color Brown # Bowel Movements 1 Weight 134.1 kg Blood Glucose* 161 Patient Weight 04/13/18 23:59 Weight 134.1 kg - Lab Result Diagrams: 04/13/18 13:27 04/13/18 13:27 Labs: Abnormal lab results WBC 16.4 K/mcL (4.3-11.1) H 04/13/18 13:27 RBC 3.71 M/mcL (4.19-5.50) L 04/13/18 13:27 Hgb 10.9 g/dL (12.9-16.9) L 04/13/18 13:27 Hct 33.2 % (37.5-50.1) L 04/13/18 13:27 RDW 14.8 % (11.5-14.5) H 04/13/18 13:27 Plt Count 411 K/mcL (140-400) H 04/13/18 13:27 Neutrophils # 13.9 K/mcL (1.6-8.9) H 04/13/18 13:27 ESR 106 mm/hr (0-10) H 04/11/18 10:29 Sodium 132 mEq/L (136-145) L 04/13/18 13:27 Chloride 96 mEq/L (98-107) L 04/13/18 13:27 Creatinine 0.60 mg/dL (0.70-1.30) L 04/13/18 13:27 Glucose 151 mg/dL (70-105) H 04/13/18 13:27 POC Glucose 111 mg/dL (70-99) H 04/12/18 20:29 Hemoglobin A1c 7.6 % (-5.6) H 04/10/18 05:49 Calculated Osmolality 277 (280-300) L 04/13/18 13:27 C-Reactive Protein 286 mg/L (Less than 10) H 04/11/18 10:29 Urine Protein 30 mg/dL (Neg-Trace) H 04/12/18 22:16 Urine Glucose (UA) 500 mg/dL (Normal) H 04/12/18 22:16 Urine Ketones Trace mg/dL (Negative) H 04/12/18 22:16 Urine Blood Moderate (Negative) H 04/12/18 22:16 Urine Urobilinogen 2.0 mg/dL (Normal) H 04/12/18 22:16 Ur Squamous Epith Cells Moderate per lpf (None-Few) H 04/12/18 22:16 Staphylococcus sp PCR DETECTED (Not Detect) A 04/09/18 20:56 Staph aureus (PCR) DETECTED (Not Detect) A 04/09/18 20:56 Microbiology, Last 48 Hours 04/12/18 16:25 Gram Stain - Final Right Foot 04/12/18 16:18 Gram Stain - Final Right Foot 04/12/18 16:29 Gram Stain - Final Right Foot Consult Discharge Plan - Plan Referrals: Myron Henderson [Primary Care Provider] -
--- NOTE | 2018-04-13 17:35 | Electrocardiograph Report ---
[place] [id number] Test Date: 2018-04-09 Pat Name: Noe Newsome Department: [id number] Room: [facility] Gender: M Wirer Maintenance: : 1955 Requested By: Dangelo Bales Order Number: [id number] Reading MD: Aster Jean Measurements Intervals Dwarf Rate: 91 P: -44 AR: 174 QRS: 43 QRSD: 109 T: 89 QT: 380 QTc: 468 Interpretive Statements Sinus rhythm Abnormal R-wave progression, early transition Nonspecific ST and T abnormalities Electronically Signed On 04-13-2018 17:33:35 EDT by Aster Jean
--- NOTE | 2018-04-13 19:34 | Internal Med Progress Note ---
Hospitalist Progress Note - Encounter Date of Encounter: 04/13/18 Time of Encounter: 09:00 - Subjective Interval History: Mr. Noe Newsome is a 63-year-old male who was admitted through the emergency room for sepsis due to a diabetic Charcot foot on the left and the MSSA. He is complaining of unable to void and has not forwarded to since today shift bladder distention abdominal pain a bladder scan was completed and showed urine of 950 mL within the bladder he also is complaining of severe nausea and vomiting with brown emesis. - Exam Vitals: Temp Pulse Resp BP Pulse Ox 97.9 F 106 19 177/74 97 04/13/18 15:40 04/13/18 15:40 04/13/18 15:40 04/13/18 15:40 04/13/18 15:40 Exam: Blood pressure is elevated today at 177/74 and he is on oxygen with SPO2 of 97% with [address] he is afebrile 27 9 and stable - Assessment and Plan (1) Charcot foot due to diabetes mellitus Current Visit: Yes Status: Chronic Assessment and Plan: Underwent I&D of an abscess of the right ankle per podiatry on 04/12/18. Pending biopsy of the right ankle was obtained at the time of the incision and drainage. Preliminary culture and sensitivity of the right ankle from showed Staphylococcus final report is MSSA peripheral final blood cultures were positive for staph aureus. We will continue with the IV cefazolin sodium 2000 mg every 8 hour (2) Diabetes mellitus Current Visit: Yes Status: Chronic Assessment and Plan: Uncontrolled. Currently on basal and prandial insulin. Continue to monitor sugars and cover. (3) Hypertension Current Visit: Yes Status: Chronic Assessment and Plan: b/p 177/74 today . (4) CAD (coronary artery disease) Current Visit: Yes Status: Chronic Assessment and Plan: Chronic issue (5) Asthma Current Visit: Yes Status: Chronic Assessment and Plan: not in exacerbation continue singulair albuterol nebs prn (6) BROCK (obstructive sleep apnea) Current Visit: Yes Status: Chronic Assessment and Plan: CPAP at bedtime (7) Morbid obesity Current Visit: Yes Status: Chronic Assessment and Plan: Lifestyle modification (8) Hyponatremia Current Visit: Yes Status: Acute Assessment and Plan: 132 today stable, (9) Fall Current Visit: Yes Status: Acute Assessment and Plan: no fractures Associated weakness Fall was mechanical in description Fall precautions Physical and occupational therapy evaluation. (10) Sepsis Current Visit: Yes Status: Acute Assessment and Plan: Cultures are positive for staph aureus MSSA of the right ankle as well as staph aureus in the blood for sepsis we will continue with IV antibiotics (11) Severe sepsis due to methicillin resistant Staphylococcus aureus (MRSA) with acute organ dysfunction Current Visit: Yes Status: Suspected (12) Hypokalemia Current Visit: Yes Status: Resolved (13) Urinary retention Current Visit: Yes Status: Acute Assessment and Plan: Patient had chief complaint today that was unable to empty his bladder at all bladder scan was completed and revealed 950 mL. In the bladder Christensen catheter was inserted with additional 450 mL of clear yellow urine she was cleaning up at thousand milliliter due to having bladder spasms 1 hour patient then this unclear without any residual bladder spasms however she did continue to complain of nausea and started to vomit (14) DVT prophylaxis Current Visit: Yes Status: Acute Assessment and Plan: We will continue with Lovenox injections per protocol (15) Vomiting Current Visit: Yes Status: Acute Assessment and Plan: Patient had chief complaint of nausea despite receiving Zofran and Phenergan . Continued with complaints of abdominal pain without any relief due to Christensen catheter. Nurses reported that patient began to vomit brown thin liquid with associated severe nausea. CT scan was obtained of the abdomen and shows: No renal stones or obstructive uropathy. Large amount stool in the colon and rectum. Stool within the rectum appears impacted.. We will order milk of magnesia enema, Colace 100 mg twice a day and will add MiraLAX 17 g per scoop 1 scoop at bedtime - Summary of Assessment and Plan Summary of Assessment and Plan: Today Mr. Liu developed nausea vomiting unable to void a Christensen catheter was inserted with immediate release of clear yellow urine. He was clamped at 80, 000 mL 1 hour due to bladder spasm. The catheter was then reopened without any complaint of bladder spasm. However, proceeded to continue to complain of severe nausea and vomiting with no effect from Zofran and Phenergan. CT of the abdomen was obtained and is positive for large amount of stool in the colon in the rectum appeared to be impacted. Milk and magnesium and molasses enema was wall with MiraLAX we will continue to follow the progression of the stools. Patient is being seen by podiatry for sure diabetic Charcot foot on the right side with staph aureus MSSA we will continue with IV antibiotics as well and dressing changes per podiatry. We will continue all other medications - Time Spent with Patient Total time spent is greater than 50% in coordination of care (as documented) at patient's floor/unit and/or counseling patient: 25 - 35 minutes Plan of Care Discussed with: family Internal Medicine: Result - Labs CBC & Chem 7: 04/13/18 13:27 04/13/18 13:27 Labs: Short CBC 04/13/18 Range/Units 13:27 WBC 16.4 H (4.3-11.1) K/mcL Hgb 10.9 L (12.9-16.9) g/dL Hct 33.2 L (37.5-50.1) % Plt Count 411 H (140-400) K/mcL Neutrophils # 13.9 H (1.6-8.9) K/mcL BMP 04/13/18 13:27 Sodium 132 L Potassium 3.7 Chloride 96 L Carbon Dioxide 25 BUN 13 Creatinine 0.60 L Glucose 151 H Calcium 8.7 Urine 04/12/18 Range/Units 22:16 Urine Color Yellow (Yellow) Urine Clarity Clear (Clear) Urine pH 7.5 (5.0-8.0) pH Units Ur Specific [place] 1.013 (1.010-1.025) Urine Protein 30 H (Neg-Trace) mg/dL Urine Glucose (UA) 500 H (Normal) mg/dL - Impressions Impressions Abdomen/Pelvis CT 04/13/18 15:16 IMPRESSION: No renal stones or obstructive uropathy. Large amount stool in the colon and rectum. Stool within the rectum appears impacted. D/ / Zak Andre / Zak Andre Interpreting Provider: Zak Andre Consult Discharge Plan - Plan Referrals: Myron Henderson [Primary Care Provider] - (2) Diabetes mellitus Qualifiers: Diabetes mellitus type: type 2 Diabetes mellitus advanced practice nurse insulin use: with nursing home use Diabetes mellitus complication status: with neurologic complications Diabetes mellitus complication detail: with polyneuropathy Qualified Code(s): E11.42 - Type 2 diabetes mellitus with diabetic polyneuropathy; Z79.4 - riveter portable machine (current) use of insulin (3) Hypertension Qualifiers: Hypertension type: essential hypertension Qualified Code(s): I10 - Essential (primary) hypertension (4) CAD (coronary artery disease) Qualifiers: Coronary Disease-Associated Artery/Lesion type: [place] artery [place] vs. transplanted heart: [place] heart Associated angina: without angina Qualified Code(s): I25.10 - Atherosclerotic heart disease of [place] coronary artery without angina pectoris (5) Asthma Qualifiers: Asthma severity: unspecified severity Asthma persistence: unspecified Asthma complication type: uncomplicated Qualified Code(s): J45.909 - Unspecified asthma, uncomplicated (9) Fall Qualifiers: Encounter type: subsequent encounter Qualified Code(s): W19.XXXD - Unspecified fall, subsequent encounter (10) Sepsis Qualifiers: Sepsis type: methicillin resistant Staphylococcus aureus Qualified Code(s): A41.02 - Sepsis due to Methicillin resistant Staphylococcus aureus
[2018-04-13] MEDS: Insulin DETEMIR 100 UNIT/ML X5UNITS SQ SCH (21:25)
[2018-04-14] MEDS: Acetaminophen 325 MG TABLET PO PRN (00:18)
[2018-04-14] MEDS: *HR* Enoxaparin 40 MG/0.4 ML SYRINGE SQ SCH (05:52)
[2018-04-14] MEDS: Insulin LISPRO 300 UNITS/3 ML VIAL SQ SCH ×4 (09:07→21:22)
[2018-04-14] MEDS: Ondansetron 4 MG/2 ML VIAL IVP PRN ×3 (09:12→23:30)
[2018-04-14] MEDS: NALTREXONE PO SCH ×2 (09:13→21:25)
[2018-04-14] MEDS: amLODIPine 5 MG TABLET PO SCH (09:13)
[2018-04-14] MEDS: MORPHINE PO SCH ×2 (09:13→21:25)
[2018-04-14] MEDS: Aspirin 81 MG TAB.CHEW PO SCH (09:13)
[2018-04-14] MEDS ORDERED: *HR* Promethazine 25 MG/ML VIAL IVP ONE (11:23)
--- NOTE | 2018-04-14 11:24 | Internal Med Progress Note ---
Hospitalist Progress Note - Encounter Date of Encounter: 04/14/18 Time of Encounter: 11:21 - Subjective Interval History: Seen and evaluated at the bedside 63 M being managed for sepsis secondary to OM, MSSA bacteremia and OM of his R ankle He has PMH of DM, Uncontrolled, pseudohyponatremia, weakness, HTN, chronic low back pain, Charcot's arthropathy, HTN, BROCK, CAD He looks clinically weak and is complaining of nausea, not relieved by current med-zofran he also developed acute urinary retention 04/13 Awaiting final cultures and placement - Exam Vitals: Temp Pulse Resp BP Pulse Ox 97.7 F 96 18 127/66 99 04/14/18 07:33 04/14/18 07:33 04/14/18 07:33 04/14/18 07:33 04/14/18 07:33 Exam: General: Alert and oriented. Comfortable at this time. Morbidly obese. Skin: Normal color, no rash, no lesions. H: Normocephalic. EENT: EOMI, pupils equal, round and reactive. Mucus membranes moist. No lesion. Cardiovascular: Normal S1 & S2, no rubs, murmurs or gallops. No JVD. Pulse regular. Heart sound distant. Lungs: Normal breath sounds, no wheezes or crackles. Abdomen: Soft, non-tender, no rigidity. Normal bowel sounds. Extremities: Edema present bilateral extremities - R greater than L. Dressing intact on R foot. Stasis dermatitis bilaterally. Charcot foot bilaterally. No splinter hemorrhages noted. Neurological: Normal cognition and motor skills. Pulses: Carotid and radial pulses normal +2. Rest of the physical exam is non contributory - Assessment and Plan (1) Sepsis Current Visit: Yes Status: Acute Assessment and Plan: Secondary to MSSA bacteremia as well as right ankle acute osteomyelitis Leukocytosis from 04/13 noted, no labs today. [facility] [place] infectious disease is following, blood cultures 04/09 with MSSA, repeat blood cultures 04/11 no growth to date. Continue Ancef 2 g every 8, plan is for likely 6 weeks of IV antibiotics Midline has been placed and patient is awaiting final blood cultures prior to placement. Infectious disease and podiatry is following. (2) Diabetes mellitus Current Visit: Yes Status: Chronic Assessment and Plan: Uncontrolled. Currently on basal and prandial insulin. Continue to monitor sugars and cover. (3) Hypertension Current Visit: Yes Status: Chronic Assessment and Plan: controlled on current meds, continue same (4) CAD (coronary artery disease) Current Visit: Yes Status: Chronic Assessment and Plan: Chronic and stable, continue home meds (5) Asthma Current Visit: Yes Status: Chronic Assessment and Plan: not in exacerbation continue singulair albuterol nebs prn (6) BROCK (obstructive sleep apnea) Current Visit: Yes Status: Chronic Assessment and Plan: CPAP at bedtime (7) DVT prophylaxis Current Visit: Yes Status: Acute Assessment and Plan: We will continue with Lovenox injections per protocol (8) Morbid obesity Current Visit: Yes Status: Chronic Assessment and Plan: Lifestyle modification (9) Charcot foot due to diabetes mellitus Current Visit: Yes Status: Chronic Assessment and Plan: See sepsis and bacteremia for plan of care (10) Hyponatremia Current Visit: Yes Status: Acute Assessment and Plan: stable, pseudohyponatremia due to hyperglycemia (11) Fall Current Visit: Yes Status: Acute Assessment and Plan: no fractures Associated weakness Fall was mechanical in description Fall precautions Physical and occupational therapy evaluation-for SNF placement (12) Hypokalemia Current Visit: Yes Status: Resolved Assessment and Plan: Resolved. (13) Urinary retention Current Visit: Yes Status: Acute Assessment and Plan: Acute urinary retention 04/2010 with placement of Christensen catheter. Urine analysis with no evidence of infection Continue to monitor (14) Vomiting Current Visit: Yes Status: Acute Assessment and Plan: CAT scan showed impacted stool, however, there is documentation of patient having bowel movements. Continue bowel regimen continue Zofran (15) Bacteremia Current Visit: Yes Status: Acute Assessment and Plan: Resolved. Repeat blood culture 04/11 with no growth (16) Osteomyelitis of ankle, right, acute Current Visit: Yes Status: Acute Assessment and Plan: Management as in sepsis Right foot culture is pending Gram stain final with no growth - Time Spent with Patient Total time spent is greater than 50% in coordination of care (as documented) at patient's floor/unit and/or counseling patient: Plan of Care Discussed with: patient Internal Medicine: Result - Labs CBC & Chem 7: 04/13/18 13:27 04/13/18 13:27 Labs: Short CBC 04/13/18 Range/Units 13:27 WBC 16.4 H (4.3-11.1) K/mcL Hgb 10.9 L (12.9-16.9) g/dL Hct 33.2 L (37.5-50.1) % Plt Count 411 H (140-400) K/mcL Neutrophils # 13.9 H (1.6-8.9) K/mcL BMP 04/13/18 13:27 Sodium 132 L Potassium 3.7 Chloride 96 L Carbon Dioxide 25 BUN 13 Creatinine 0.60 L Glucose 151 H Calcium 8.7 - Impressions Impressions Abdomen/Pelvis CT 04/13/18 15:16 IMPRESSION: No renal stones or obstructive uropathy. Large amount stool in the colon and rectum. Stool within the rectum appears impacted. D/ / Zak Andre / Zak Andre Interpreting Provider: Zak Andre Consult Discharge Plan - Plan Referrals: Myron Henderson [Primary Care Provider] - (1) Sepsis Qualifiers: Sepsis type: methicillin susceptible Staphylococcus aureus Qualified Code(s) : A41.01 - Sepsis due to Methicillin susceptible Staphylococcus aureus (2) Diabetes mellitus Qualifiers: Diabetes mellitus type: type 2 Diabetes mellitus intermediate insulin use: with keno terminal operator use Diabetes mellitus complication status: with neurologic complications Diabetes mellitus complication detail: with polyneuropathy Qualified Code(s): E11.42 - Type 2 diabetes mellitus with diabetic polyneuropathy; Z79.4 - keno terminal operator (current) use of insulin (3) Hypertension Qualifiers: Hypertension type: essential hypertension Qualified Code(s): I10 - Essential (primary) hypertension (4) CAD (coronary artery disease) Qualifiers: Coronary Disease-Associated Artery/Lesion type: [place] artery [place] vs. transplanted heart: [place] heart Associated angina: without angina Qualified Code(s): I25.10 - Atherosclerotic heart disease of [place] coronary artery without angina pectoris (5) Asthma Qualifiers: Asthma severity: unspecified severity Asthma persistence: unspecified Asthma complication type: uncomplicated Qualified Code(s): J45.909 - Unspecified asthma, uncomplicated (11) Fall Qualifiers: Encounter type: subsequent encounter Qualified Code(s): W19.XXXD - Unspecified fall, subsequent encounter (14) Vomiting Qualifiers: Vomiting type: unspecified Vomiting Intractability: non-intractable Nausea presence: with nausea Qualified Code(s): R11.2 - Nausea with vomiting, unspecified
--- NOTE | 2018-04-14 11:29 | Infectious Disease Progress No ---
Date of Encounter: 04/14/18 Time of Encounter: 11:27 - Assessment and Plan (1) Sepsis Current Visit: Yes Status: Acute The patient has 3 sepsis criteria. Likely secondary to bacteremia. Improved. Tachycardia resolved. Afebrile overnight. WBC up a little today, but no bands. Blood cultures obtained 04/09/18 her +2 out of 2 sets from MSSA. Repeat blood cultures 2 sets drawn 04/11/18 are NGTD Qualifiers: Sepsis type: methicillin susceptible Staphylococcus aureus Qualified Code(s ): A41.01 - Sepsis due to Methicillin susceptible Staphylococcus aureus (2) Bacteremia Current Visit: Yes Status: Acute Causative organism: MSSA. Source: Likely right foot/ankle infection. Blood cultures obtained 04/09/18 were +2 out of 2 sets. Complicated due to the presence of OM. At this point, the patient has 2 minor Owen criteria. No endocarditis stigmata noted on exam. Repeat blood cultures drawn 04/11/18 are NGTD x 2 sets. Check rheumatoid factor.--> normal. Continue Ancef 2 g IV every 8 hours. TTE: limited study. Recommend [place] prior to discharge. Duration of treatment depends on the clinical picture, but likely 6 weeks of IV antibiotics. Monitor renal function and dose adjust antibiotics. Midline placed 04/13/18. director of consulting services to assist with discharge planning. Further recommendations from the ID team to follow pending clinical outcomes and culture results. (3) Osteomyelitis of ankle, right, acute Current Visit: Yes Status: Acute Location: Right ankle. Causative organism: MSSA. Previously treated with 6 weeks of IV nafcillin followed by 2 weeks of oral Keflex. Clinically, the patient improved, but his inflammatory markers did remain elevated. Previous imaging revealed findings consistent with osteomyelitis. Podiatry was consulted, but did not recommend any surgical intervention at that time, so we treated aggressively with IV and oral antibiotics. MRI 04/11/18 showed findings consistent with abscess, osteomyelitis, and severe tenosynovitis. Podiatry consulted. Status post I & D 04/12/18. Check ESR and CRP.--> 106 and 286, respectively. Wound culture obtained on admission is positive for MSSA as well. Continue antibiotics as above. Wound care and activity restrictions per the podiatry team. Duration of treatment depends on the clinical picture, but likely 6 weeks. (4) Hyponatremia Current Visit: Yes Status: Acute We secondary to poor by mouth intake. Improved. Further workup and management per the primary team. (5) Low back pain Current Visit: Yes Status: Acute CT scan of the lumbar spine negative for acute abnormality. Likely secondary to fall. Pain management per the primary team. Qualifiers: Chronicity: acute Back pain laterality: midline Sciatica presence: unspecified whether sciatica present Qualified Code(s): M54.5 - Low back pain (6) Fall Current Visit: Yes Status: Acute Qualifiers: Encounter type: subsequent encounter Qualified Code(s): W19.XXXD - Unspecified fall, subsequent encounter (7) Weakness Current Visit: Yes Status: Acute (8) Hypokalemia Current Visit: Yes Status: Resolved Likely secondary to poor by mouth intake. Resolved. (9) Diabetes mellitus Current Visit: Yes Status: Chronic Recommend aggressive glucose monitoring and control to promote wound healing and prevent reinfection. Management per the primary team. Qualifiers: Diabetes mellitus type: type 2 Diabetes mellitus intermediate insulin use: with intermediate use Diabetes mellitus complication status: with neurologic complications Diabetes mellitus complication detail: with polyneuropathy Qualified Code(s): E11.42 - Type 2 diabetes mellitus with diabetic polyneuropathy; Z79.4 - retirement (current) use of insulin (10) Charcot foot due to diabetes mellitus Current Visit: Yes Status: Chronic (11) BROCK (obstructive sleep apnea) Current Visit: Yes Status: Chronic (12) Hypertension Current Visit: Yes Status: Chronic Qualifiers: Hypertension type: essential hypertension Qualified Code(s): I10 - Essential (primary) hypertension (13) CAD (coronary artery disease) Current Visit: Yes Status: Chronic Qualifiers: Coronary Disease-Associated Artery/Lesion type: [place] artery [place] vs. transplanted heart: [place] heart Associated angina: without angina Qualified Code(s): I25.10 - Atherosclerotic heart disease of [place] coronary artery without angina pectoris - Subjective Interval history: Patient seen and examined. No acute events noted overnight. Patient states overall he feels a little better today. Denies fevers, chills, and rigors. Denies chest pain or cough, but does report chronic shortness of breath due to asthma. Denies nausea, vomiting, or diarrhea this morning. States his appetite is a little better He denies any abdominal pain. He does report chronic back pain. He also complains of osteoarthritis pain in his bilateral knees that is at baseline. He denies any oral thrush or new skin lesions. Status post I & D by Dr. Harrington. Infect Dis PN-Objective Data - Labs CBC & Chem 7: 04/13/18 13:27 04/13/18 13:27 Labs: Laboratory Results - last 24 hr 04/13/18 04/13/18 04/13/18 08:29 12:05 13:27 WBC 16.4 H RBC 3.71 L Hgb 10.9 L Hct 33.2 L MCV 89.5 MCH 29.4 MCHC 32.8 RDW 14.8 H Plt Count 411 H MPV 10.9 Immature Gran % 1.3 Seg Neutrophils % 84.4 Lymphocytes % 7.2 Monocytes % 6.8 Eosinophils % 0.1 Basophils % 0.2 Neutrophils # 13.9 H Lymphocytes # 1.2 Monocytes # 1.1 Eosinophils # 0.0 Basophils # 0.0 Sodium Potassium Chloride Carbon Dioxide BUN Creatinine Est GFR ( Amer) Est GFR (Non-Af Amer) BUN/Creatinine Ratio Glucose POC Glucose 141 H 161 H Calculated Osmolality Calcium 04/13/18 04/13/18 04/13/18 13:27 17:06 20:15 WBC RBC Hgb Hct MCV MCH MCHC RDW Plt Count MPV Immature Gran % Seg Neutrophils % Lymphocytes % Monocytes % Eosinophils % Basophils % Neutrophils # Lymphocytes # Monocytes # Eosinophils # Basophils # Sodium 132 L Potassium 3.7 Chloride 96 L Carbon Dioxide 25 BUN 13 Creatinine 0.60 L Est GFR ( Amer) > 60 Est GFR (Non-Af Amer) > 60 BUN/Creatinine Ratio 22 Glucose 151 H POC Glucose 172 H 178 H Calculated Osmolality 277 L Calcium 8.7 Cultures: Cultures 04/12/18 16:25 Gram Stain - Final Right Foot 04/12/18 16:18 Gram Stain - Final Right Foot 04/12/18 16:29 Gram Stain - Final Right Foot 04/11/18 06:40 Blood Culture - Preliminary Peripheral Venipuncture Culture is incubating and being continuously monitored for growth. Final report to follow. 04/11/18 06:48 Blood Culture - Preliminary Peripheral Venipuncture Culture is incubating and being continuously monitored for growth. Final report to follow. Serology 04/12/18 Range/Units 22:16 Urine Color Yellow (Yellow) Urine Clarity Clear (Clear) Urine pH 7.5 (5.0-8.0) pH Units Ur Specific [place] 1.013 (1.010-1.025) Urine Protein 30 H (Neg-Trace) mg/dL Urine Glucose (UA) 500 H (Normal) mg/dL Urine Ketones Trace H (Negative) mg/dL Urine Blood Moderate H (Negative) Urine Nitrite Negative (Negative) Urine Bilirubin Negative (Negative) Urine Urobilinogen 2.0 H (Normal) mg/dL Ur Leukocyte Esterase Negative (Negative) Urine Microscopic RBC 0-3 (0-3) per hpf Urine Microscopic WBC 0-3 (0-3) per hpf Ur Squamous Epith Cells Moderate H (None-Few) per lpf Urine Bacteria None Seen (None-Few) per hpf Hyaline Casts None Seen (None-Few) per lpf Ur Culture Indicated? NO (NO) - Impressions Impressions Abdomen/Pelvis CT 04/13/18 15:16 IMPRESSION: No renal stones or obstructive uropathy. Large amount stool in the colon and rectum. Stool within the rectum appears impacted. D/ / Zak Andre / Zak Andre Interpreting Provider: Zak Andre Exam - Constitutional Vitals: Temp Pulse Resp BP Pulse Ox 97.7 F 96 18 127/66 99 04/14/18 07:33 04/14/18 07:33 04/14/18 07:33 04/14/18 07:33 04/14/18 07:33 General appearance: cooperative, morbidly obese, no acute distress - Head Head exam: Present: atraumatic, normal inspection, normocephalic - Eye Eye exam: Present: EOMI, normal appearance, PERRL Pupils: Present: normal accommodation Additional comments: No subconjunctival hemorrhage noted. - ENT ENT exam: Present: mucous membranes moist - Neck Neck exam: Present: normal inspection - Respiratory Respiratory exam: Present: CTAB. Absent: rales, respiratory distress, rhonchi, wheezes - Cardiovascular Cardiovascular exam: Present: RRR, +S1, +S2 - GI/Abdominal GI/Abdominal exam: Present: distended (obese), normal bowel sounds, soft. Absent: tenderness Additional comments: Christensen catheter noted to be draining dark, clear yellow urine. - Extremities Exam Extremities exam: Present: pedal edema (1+ RLE). Absent: joint swelling, normal inspection (Venous stasis dermatitis noted to the BLE.), tenderness Additional comments: Right foot dressing C/D/I. - Neurological Exam Neurological exam: Present: alert, oriented X3, no focal deficits - Psychiatric Psychiatric exam: Present: normal affect, normal mood - Skin Skin exam: Present: dry, intact, normal color, warm Consult Discharge Plan - Plan Referrals: Myron Henderson [Primary Care Provider] - - Attending Attestation I examined this patient and my medical decision-making was reviewed with the Resident Physician. I agree with the documented findings, disposition and treatment plan as described except to the extent set forth below. Patient really had a bowel movement. He tells me he feels much better.
--- NOTE | 2018-04-14 13:27 | Podiatry Progress Note ---
Date of Encounter: 04/14/18 Time of Encounter: 12:50 - Assessment and Plan (1) Abscess of right foot Current Visit: Yes Status: Acute patient says he is feeling better. less nauseated and had a bowel movement. s/ p incision and drainage right ankle. No purulence expressed. There is some serosanguineous drainage from the lateral ankle. cultures mssa. Continue antibiotics per infectious disease and will continue to flush pack the wound. If wbc continues to increase will consider MRI to look for further or newly forming abscess Elevation. Remain nonweightbearing to the right lower extremity. Objective - Vital Signs Vital Signs: Vital Signs Temp Pulse Resp BP Pulse Ox 04/14/18 11:29 97.8 F 86 18 134/66 98 04/14/18 07:33 97.7 F 96 18 127/66 99 04/14/18 03:34 99.4 F 97 16 147/71 94 04/13/18 22:53 98.5 F 107 17 164/75 98 04/13/18 19:42 97.7 F 105 16 165/89 98 04/13/18 15:40 97.9 F 106 19 177/74 97 Intake and Output 04/13/18 04/14/18 04/14/18 23:59 07:59 15:59 Intake Total 100 / 100 100 / 100 Output Total 2195 / 2195 1500 / 1500 Balance -2095 / -2095 -1400 / -1400 Intake: IV Fluids 100 / 100 100 / 100 Ancef 2,000 MG In 0.9 % Sodium 100 / 100 100 / 100 Chloride 100 ML @ 200 mls/hr IVPB Q8HR [facility] Rx#:[id number] Output: Urine 1200 / 1200 550 / 550 Emesis 20 / 20 Catheter 975 / 975 950 / 950 Urethral (Christensen) 975 / 975 Other: Stool Size Copious Stool Consistency formed Stool Color Brown Weight 128.9 kg Blood Glucose* 178 186 188 Patient Weight 04/14/18 23:59 Weight 128.9 kg - Lab Result Diagrams: 04/13/18 13:27 04/13/18 13:27 Labs: Abnormal lab results WBC 16.4 K/mcL (4.3-11.1) H 04/13/18 13:27 RBC 3.71 M/mcL (4.19-5.50) L 04/13/18 13:27 Hgb 10.9 g/dL (12.9-16.9) L 04/13/18 13:27 Hct 33.2 % (37.5-50.1) L 04/13/18 13:27 RDW 14.8 % (11.5-14.5) H 04/13/18 13:27 Plt Count 411 K/mcL (140-400) H 04/13/18 13:27 Neutrophils # 13.9 K/mcL (1.6-8.9) H 04/13/18 13:27 ESR 106 mm/hr (0-10) H 04/11/18 10:29 Sodium 132 mEq/L (136-145) L 04/13/18 13:27 Chloride 96 mEq/L (98-107) L 04/13/18 13:27 Creatinine 0.60 mg/dL (0.70-1.30) L 04/13/18 13:27 Glucose 151 mg/dL (70-105) H 04/13/18 13:27 POC Glucose 178 mg/dL (70-99) H 04/13/18 20:15 Hemoglobin A1c 7.6 % (-5.6) H 04/10/18 05:49 Calculated Osmolality 277 (280-300) L 04/13/18 13:27 C-Reactive Protein 286 mg/L (Less than 10) H 04/11/18 10:29 Urine Protein 30 mg/dL (Neg-Trace) H 04/12/18 22:16 Urine Glucose (UA) 500 mg/dL (Normal) H 04/12/18 22:16 Urine Ketones Trace mg/dL (Negative) H 04/12/18 22:16 Urine Blood Moderate (Negative) H 04/12/18 22:16 Urine Urobilinogen 2.0 mg/dL (Normal) H 04/12/18 22:16 Ur Squamous Epith Cells Moderate per lpf (None-Few) H 04/12/18 22:16 Staphylococcus sp PCR DETECTED (Not Detect) A 04/09/18 20:56 Staph aureus (PCR) DETECTED (Not Detect) A 04/09/18 20:56 Microbiology, Last 48 Hours 04/12/18 16:18 Acid Fast Stain - Final Right Foot 04/12/18 16:18 Wound Culture - Preliminary Right Foot Gram Positive Cocci 04/12/18 16:18 Gram Stain - Final Right Foot 04/12/18 16:29 Acid Fast Stain - Final Right Foot 04/12/18 16:25 Acid Fast Stain - Final Right Foot 04/12/18 16:25 Gram Stain - Final Right Foot 04/12/18 16:29 Gram Stain - Final Right Foot Consult Discharge Plan - Plan Referrals: Myron Henderson [Primary Care Provider] -
[2018-04-14] MEDS: Insulin DETEMIR 100 UNIT/ML X5UNITS SQ SCH (21:23)
[2018-04-15] MEDS: *HR* Enoxaparin 40 MG/0.4 ML SYRINGE SQ SCH (06:19)
[2018-04-15] MEDS: *HR* HYDROcodone/Acet 7.5/325 mg TABLET PO PRN (09:04)
[2018-04-15] MEDS: Ondansetron 4 MG/2 ML VIAL IVP PRN (09:04)
[2018-04-15] MEDS: amLODIPine 5 MG TABLET PO SCH (09:05)
[2018-04-15] MEDS: NALTREXONE PO SCH ×2 (09:05→20:51)
[2018-04-15] MEDS: MORPHINE PO SCH ×2 (09:05→20:51)
[2018-04-15] MEDS: Aspirin 81 MG TAB.CHEW PO SCH (09:05)
[2018-04-15] MEDS: Insulin LISPRO 300 UNITS/3 ML VIAL SQ SCH ×4 (09:06→20:52)
--- NOTE | 2018-04-15 17:14 | Podiatry Progress Note ---
Date of Encounter: 04/15/18 Time of Encounter: 17:13 - Assessment and Plan (1) Osteomyelitis of ankle, right, acute Current Visit: Yes Status: Acute Assessment: #1 status post I&D right ankle with concern for osteomyelitis. Acute infection/abscess controlled with surgical intervention #2 white blood cell count trending up with left shift unaccountable upon wound inspection. Plan: #1 continue local wound care with irrigation dressing and packing every 12 hours #2 we will order MRI if white count tends to trend upward within 24 hours or should he develop overt constitutional symptoms of active infection. We will evaluate his white count tomorrow if it still continues to trend upward we will order MRI stat to determine if there is no called abscess that is unaccounted for clinically Subjective Principal diagnosis: Status post I&D right foot ankle Interval history: Patient continues to be without fever or chills, still complains of nausea without alesia vomitus. Patient comfortable without pain presently. Objective - Vital Signs Vital Signs: Vital Signs Temp Pulse Resp BP Pulse Ox 04/15/18 14:40 98.2 F 59 15 101/52 98 04/15/18 11:51 98.0 F 81 16 116/67 96 04/15/18 06:35 98.2 F 79 17 123/69 99 04/15/18 03:26 98.1 F 83 14 130/69 99 04/15/18 00:40 16 97 04/14/18 23:35 98.7 F 83 14 120/69 97 04/14/18 18:44 98.0 F 86 15 133/65 98 Intake and Output 04/15/18 04/15/18 04/15/18 07:59 15:59 23:59 Intake Total 100 / 100 Balance 100 / 100 Intake: IV Fluids 100 / 100 Ancef 2,000 MG In 0.9 % Sodium 100 / 100 Chloride 100 ML @ 200 mls/hr IVPB Q8HR [facility] Rx#:[id number] Other: Blood Glucose* 154 179 - Exam Exam: Dressing intact. No strikethrough drainage presently. Skin warm to touch. Wound unchanged unremarkable no purulent drainage Incision: Present: draining, inflamed - Lab Result Diagrams: 04/13/18 13:27 04/13/18 13:27 Labs: Abnormal lab results WBC 16.4 K/mcL (4.3-11.1) H 04/13/18 13:27 RBC 3.71 M/mcL (4.19-5.50) L 04/13/18 13:27 Hgb 10.9 g/dL (12.9-16.9) L 04/13/18 13:27 Hct 33.2 % (37.5-50.1) L 04/13/18 13:27 RDW 14.8 % (11.5-14.5) H 04/13/18 13:27 Plt Count 411 K/mcL (140-400) H 04/13/18 13:27 Neutrophils # 13.9 K/mcL (1.6-8.9) H 04/13/18 13:27 ESR 106 mm/hr (0-10) H 04/11/18 10:29 Sodium 132 mEq/L (136-145) L 04/13/18 13:27 Chloride 96 mEq/L (98-107) L 04/13/18 13:27 Creatinine 0.60 mg/dL (0.70-1.30) L 04/13/18 13:27 Glucose 151 mg/dL (70-105) H 04/13/18 13:27 POC Glucose 179 mg/dL (70-99) H 04/15/18 15:51 Hemoglobin A1c 7.6 % (-5.6) H 04/10/18 05:49 Calculated Osmolality 277 (280-300) L 04/13/18 13:27 C-Reactive Protein 286 mg/L (Less than 10) H 04/11/18 10:29 Urine Protein 30 mg/dL (Neg-Trace) H 04/12/18 22:16 Urine Glucose (UA) 500 mg/dL (Normal) H 04/12/18 22:16 Urine Ketones Trace mg/dL (Negative) H 04/12/18 22:16 Urine Blood Moderate (Negative) H 04/12/18 22:16 Urine Urobilinogen 2.0 mg/dL (Normal) H 04/12/18 22:16 Ur Squamous Epith Cells Moderate per lpf (None-Few) H 04/12/18 22:16 Staphylococcus sp PCR DETECTED (Not Detect) A 04/09/18 20:56 Staph aureus (PCR) DETECTED (Not Detect) A 04/09/18 20:56 Microbiology, Last 48 Hours 09/12/18 16:29 Wound Culture - Final Right Foot No pathogens isolated. 04/12/18 16:25 Wound Culture - Preliminary Right Foot Staphylococcus aureus 04/12/18 16:18 Wound Culture - Final Right Foot Staphylococcus aureus 04/12/18 16:18 Acid Fast Stain - Final Right Foot 04/12/18 16:18 Gram Stain - Final Right Foot 04/12/18 16:29 Acid Fast Stain - Final Right Foot 04/12/18 16:25 Acid Fast Stain - Final Right Foot 04/12/18 16:25 Gram Stain - Final Right Foot 04/12/18 16:29 Gram Stain - Final Right Foot Consult Discharge Plan - Plan Referrals: Myron Henderson [Primary Care Provider] -
--- NOTE | 2018-04-15 18:35 | Internal Med Progress Note ---
Hospitalist Progress Note - Encounter Date of Encounter: 04/15/18 Time of Encounter: 11:00 - Subjective Interval History: Patient with no issues or complaints this morning Podiatry and infectious disease following for management of osteomyelitis of right ankle Patient still with leukocytosis on IV antibiotics. - Exam Vitals: Temp Pulse Resp BP Pulse Ox 98.2 F 59 15 101/52 98 04/15/18 14:40 04/15/18 14:40 04/15/18 14:40 04/15/18 14:40 04/15/18 14:40 Exam: Gen.: Nonacute distress, alert and oriented 3 ENT: Mucosal membranes moist Respiratory: Lungs are clear to auscultation bilaterally without any wheezing rhonchi or rales Cardiovascular: Normal S1 and S2 regular rate rhythm no murmurs rubs or gallops Abdomen: Soft, nontender and nondistended with positive bowel sounds Extremities: No lower extremity edema Skin: Normal color - Assessment and Plan (1) Osteomyelitis of ankle, right, acute Current Visit: Yes Status: Acute Assessment and Plan: Status post I&D of right ankle due to concerns of osteomyelitis secondary to MSSA MRI 04/11/18 showed findings consistent with abscess, osteomyelitis, and severe tenosynovitis. Infectious disease following with recommendations for 6 weeks of IV nafcillin (2) Sepsis Current Visit: Yes Status: Acute Assessment and Plan: Resolved; Secondary to MSSA bacteremia as well as right ankle acute osteomyelitis Continue IV antibiotics as above (3) Bacteremia Current Visit: Yes Status: Acute Assessment and Plan: Resolved. Repeat blood culture 04/11 with no growth Blood cultures obtained 04/09/18 were +2 out of 2 sets Continue Ancef 2 g IV every 8 hours Recommendations for [place] prior to discharge due to limited study of TTE (4) Diabetes mellitus Current Visit: Yes Status: Chronic Assessment and Plan: Continue basal and prandial insulin. . (5) Hypertension Current Visit: Yes Status: Chronic Assessment and Plan: controlled on current meds, continue same (6) CAD (coronary artery disease) Current Visit: Yes Status: Chronic Assessment and Plan: Chronic and stable, continue home meds (7) Asthma Current Visit: Yes Status: Chronic Assessment and Plan: not in exacerbation continue singulair albuterol nebs prn (8) BROCK (obstructive sleep apnea) Current Visit: Yes Status: Chronic Assessment and Plan: CPAP at bedtime (9) Morbid obesity Current Visit: Yes Status: Chronic Assessment and Plan: Lifestyle modification (10) Charcot foot due to diabetes mellitus Current Visit: Yes Status: Chronic Assessment and Plan: See sepsis and bacteremia for plan of care (11) Hyponatremia Current Visit: Yes Status: Acute Assessment and Plan: stable, pseudohyponatremia due to hyperglycemia (12) Fall Current Visit: Yes Status: Acute Assessment and Plan: Physical and occupational therapy evaluation-for SNF placement (13) Hypokalemia Current Visit: Yes Status: Resolved Assessment and Plan: Resolved. (14) Urinary retention Current Visit: Yes Status: Acute Assessment and Plan: Acute urinary retention 04/2010 with placement of Christensen catheter. Urine analysis with no evidence of infection Continue to monitor (15) DVT prophylaxis Current Visit: Yes Status: Acute Assessment and Plan: We will continue with Lovenox injections per protocol - Time Spent with Patient Total time spent is greater than 50% in coordination of care (as documented) at patient's floor/unit and/or counseling patient: Internal Medicine: Result - Labs CBC & Chem 7: 04/13/18 13:27 04/13/18 13:27 Consult Discharge Plan - Plan Referrals: Myron Henderson [Primary Care Provider] - (2) Sepsis Qualifiers: Sepsis type: methicillin susceptible Staphylococcus aureus Qualified Code(s) : A41.01 - Sepsis due to Methicillin susceptible Staphylococcus aureus (4) Diabetes mellitus Qualifiers: Diabetes mellitus type: type 2 Diabetes mellitus fpc insulin use: with assistant terminal manager use Diabetes mellitus complication status: with neurologic complications Diabetes mellitus complication detail: with polyneuropathy Qualified Code(s): E11.42 - Type 2 diabetes mellitus with diabetic polyneuropathy; Z79.4 - assistant terminal manager (current) use of insulin (5) Hypertension Qualifiers: Hypertension type: essential hypertension Qualified Code(s): I10 - Essential (primary) hypertension (6) CAD (coronary artery disease) Qualifiers: Coronary Disease-Associated Artery/Lesion type: [place] artery [place] vs. transplanted heart: [place] heart Associated angina: without angina Qualified Code(s): I25.10 - Atherosclerotic heart disease of [place] coronary artery without angina pectoris (7) Asthma Qualifiers: Asthma severity: unspecified severity Asthma persistence: unspecified Asthma complication type: uncomplicated Qualified Code(s): J45.909 - Unspecified asthma, uncomplicated (12) Fall Qualifiers: Encounter type: subsequent encounter Qualified Code(s): W19.XXXD - Unspecified fall, subsequent encounter
[2018-04-15] MEDS: Insulin DETEMIR 100 UNIT/ML X5UNITS SQ SCH (20:52)
[2018-04-16] MEDS: *HR* Enoxaparin 40 MG/0.4 ML SYRINGE SQ SCH (05:15)
[2018-04-16] MEDS: Insulin LISPRO 300 UNITS/3 ML VIAL SQ SCH ×4 (08:23→20:22)
[2018-04-16] MEDS: Ondansetron 4 MG/2 ML VIAL IVP PRN (08:26)
[2018-04-16] MEDS: NALTREXONE PO SCH ×2 (08:26→20:21)
[2018-04-16] MEDS: amLODIPine 5 MG TABLET PO SCH (08:26)
[2018-04-16] MEDS: Aspirin 81 MG TAB.CHEW PO SCH (08:26)
[2018-04-16] MEDS: MORPHINE PO SCH ×2 (08:26→20:21)
[2018-04-16] MEDS: *HR* HYDROcodone/Acet 7.5/325 mg TABLET PO PRN (08:32)
--- NOTE | 2018-04-16 10:09 | Internal Med Progress Note ---
Hospitalist Progress Note - Encounter Date of Encounter: 04/16/18 Time of Encounter: 11:00 - Subjective Interval History: Patient with right ankle osteomyelitis with MSSA bacteremia Leukocytosis has improved this morning and patient afebrile - Exam Vitals: Temp Pulse Resp BP Pulse Ox 98.7 F 84 17 102/65 96 04/16/18 08:14 04/16/18 08:14 04/16/18 08:14 04/16/18 08:14 04/16/18 08:14 Exam: Gen.: Nonacute distress, alert and oriented 3 ENT: Mucosal membranes moist Respiratory: Lungs are clear to auscultation bilaterally without any wheezing rhonchi or rales Cardiovascular: Normal S1 and S2 regular rate rhythm no murmurs rubs or gallops Abdomen: Soft, nontender and nondistended with positive bowel sounds Extremities: No lower extremity edema Skin: Normal color - Assessment and Plan (1) Osteomyelitis of ankle, right, acute Current Visit: Yes Status: Acute Assessment and Plan: Status post I&D of right ankle due to concerns of osteomyelitis secondary to MSSA MRI 04/11/18 showed findings consistent with abscess, osteomyelitis, and severe tenosynovitis. Infectious disease following with recommendations for 6 weeks of IV nafcillin Podiatry also following with recommendations for consideration of repeat MRI (2) Bacteremia Current Visit: Yes Status: Acute Assessment and Plan: Resolved. Repeat blood culture 04/11 with no growth Blood cultures obtained 04/09/18 were +2 out of 2 sets Continue Ancef 2 g IV every 8 hours Recommendations for [place] prior to discharge due to limited study of TTE (3) Sepsis Current Visit: Yes Status: Acute Assessment and Plan: Resolved; Secondary to MSSA bacteremia as well as right ankle acute osteomyelitis Continue IV antibiotics as above (4) Fall Current Visit: Yes Status: Acute Assessment and Plan: Physical and occupational therapy evaluation-for SNF placement (5) CAD (coronary artery disease) Current Visit: Yes Status: Chronic Assessment and Plan: Chronic and stable, continue home meds (6) Hypertension Current Visit: Yes Status: Chronic Assessment and Plan: controlled on current meds, continue same (7) Diabetes mellitus Current Visit: Yes Status: Chronic Assessment and Plan: Continue basal and prandial insulin. . (8) Charcot foot due to diabetes mellitus Current Visit: Yes Status: Chronic Assessment and Plan: See sepsis and bacteremia for plan of care (9) Asthma Current Visit: Yes Status: Chronic Assessment and Plan: not in exacerbation continue singulair albuterol nebs prn (10) BROCK (obstructive sleep apnea) Current Visit: Yes Status: Chronic Assessment and Plan: CPAP at bedtime (11) Morbid obesity Current Visit: Yes Status: Chronic Assessment and Plan: Lifestyle modification (12) Hyponatremia Current Visit: Yes Status: Acute Assessment and Plan: stable, pseudohyponatremia due to hyperglycemia (13) Hypokalemia Current Visit: Yes Status: Resolved Assessment and Plan: Resolved. (14) Urinary retention Current Visit: Yes Status: Acute Assessment and Plan: Acute urinary retention 04/2010 with placement of Christensen catheter. Urine analysis with no evidence of infection Continue to monitor (15) DVT prophylaxis Current Visit: Yes Status: Acute Assessment and Plan: We will continue with Lovenox injections per protocol - Time Spent with Patient Total time spent is greater than 50% in coordination of care (as documented) at patient's floor/unit and/or counseling patient: Internal Medicine: Result - Labs CBC & Chem 7: 04/16/18 14:55 04/16/18 14:55 Consult Discharge Plan - Plan Referrals: Myron Henderson [Primary Care Provider] - (3) Sepsis Qualifiers: Sepsis type: methicillin susceptible Staphylococcus aureus Qualified Code(s) : A41.01 - Sepsis due to Methicillin susceptible Staphylococcus aureus (4) Fall Qualifiers: Encounter type: subsequent encounter Qualified Code(s): W19.XXXD - Unspecified fall, subsequent encounter (5) CAD (coronary artery disease) Qualifiers: Coronary Disease-Associated Artery/Lesion type: [place] artery [place] vs. 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
[2018-04-16 15:08] LABS: Basophils # 0.1 K/mcL (0.0-0.2); Hematocrit 32.6 % (37.5-50.1); Hemoglobin 10.7 g/dL (12.9-16.9); Mean Corpuscular HGB Conc 32.8 g/dL (31.6-35.5); Mean Corpuscular Hemoglobin 29.7 pg (28.0-33.3); Mean Corpuscular Volume 90.6 fL (83.0-100.0); Mean Platelet Volume 9.6 fL (9.4-12.4); Platelet Count 427 K/mcL (140-400); Red Cell Distribution Width 14.8 % (11.5-14.5)
[2018-04-16 15:35] LABS: BUN/Creatinine Ratio 16 (6-26); Blood Urea Nitrogen 8 mg/dL (8-23); Calcium 8.2 mg/dL (8.6-10.3); Carbon Dioxide 27 mEq/L (23-29); Chloride 97 mEq/L (98-107); Glucose 175 mg/dL (70-105); Osmolality,Calculated 275 (280-300); Potassium 3.7 mEq/L (3.5-5.1); Sodium 131 mEq/L (136-145); eGFR For Non-African Americans > 60 (> 60)
[2018-04-16 15:47] LABS: Eosinophils # 0.3 K/mcL (0.0-0.6); Lymphocytes # 1.6 K/mcL (0.6-4.6); Monocytes # 1.2 K/mcL (0.0-1.3); Neutrophils # 9.2 K/mcL (1.6-8.9)
[2018-04-16] MEDS: Insulin DETEMIR 100 UNIT/ML X5UNITS SQ SCH (20:21)
[2018-04-17] MEDS: *HR* Enoxaparin 40 MG/0.4 ML SYRINGE SQ SCH (05:24)
[2018-04-17 08:10] LABS: Basophils # 0.1 K/mcL (0.0-0.2); Eosinophils # 0.4 K/mcL (0.0-0.6); Hematocrit 29.7 % (37.5-50.1); Hemoglobin 9.6 g/dL (12.9-16.9); Mean Corpuscular HGB Conc 32.3 g/dL (31.6-35.5); Mean Corpuscular Hemoglobin 28.8 pg (28.0-33.3); Mean Corpuscular Volume 89.2 fL (83.0-100.0); Mean Platelet Volume 9.8 fL (9.4-12.4); Platelet Count 407 K/mcL (140-400); Red Blood Count 3.33 M/mcL (4.19-5.50); Red Cell Distribution Width 14.9 % (11.5-14.5)
[2018-04-17] MEDS: amLODIPine 5 MG TABLET PO SCH (08:17)
[2018-04-17] MEDS: Aspirin 81 MG TAB.CHEW PO SCH (08:17)
[2018-04-17] MEDS: NALTREXONE PO SCH ×2 (08:18→21:25)
[2018-04-17] MEDS: MORPHINE PO SCH ×2 (08:18→21:25)
[2018-04-17] MEDS: Insulin LISPRO 300 UNITS/3 ML VIAL SQ SCH ×4 (08:20→21:42)
[2018-04-17 08:24] LABS: BUN/Creatinine Ratio 13 (6-26); Blood Urea Nitrogen 7 mg/dL (8-23); Calcium 8.3 mg/dL (8.6-10.3); Carbon Dioxide 31 mEq/L (23-29); Chloride 98 mEq/L (98-107); Glucose 202 mg/dL (70-105); Osmolality,Calculated 276 (280-300); Sodium 131 mEq/L (136-145); eGFR For Non-African Americans > 60 (> 60)
[2018-04-17] MEDS ORDERED: *HR* FentaNYL (PF) 100 MCG/2 ML VIAL IVP PRN (10:30)
[2018-04-17] MEDS ORDERED: Lidocaine Viscous Oral Soln 15 ML SOLUTION MM PRN (10:30)
[2018-04-17] MEDS ORDERED: Tetracaine/Benzocaine/Butamben 200MG/SPRAY (100SPY/BOT) MM ONE (10:31)
[2018-04-17] MEDS ORDERED: 0.9 % Sodium Chloride 500 ML IVC ONE (10:31)
--- NOTE | 2018-04-17 10:32 | Infectious Disease Progress No ---
Date of Encounter: 04/17/18 Time of Encounter: 10:26 - Assessment and Plan (1) Sepsis Status: Acute The patient has 3 sepsis criteria. Likely secondary to bacteremia. Improved. Tachycardia resolved. Afebrile overnight. WBC normalized. Blood cultures obtained 04/09/18 her +2 out of 2 sets from MSSA. Repeat blood cultures 2 sets drawn 04/11/18 are NGTD Qualifiers: Sepsis type: methicillin susceptible Staphylococcus aureus Qualified Code(s ): A41.01 - Sepsis due to Methicillin susceptible Staphylococcus aureus (2) Bacteremia Status: Acute Causative organism: MSSA. Source: Likely right foot/ankle infection. Blood cultures obtained 04/09/18 were +2 out of 2 sets. Complicated due to the presence of OM. At this point, the patient has 2 minor Hendry criteria. No endocarditis stigmata noted on exam. Repeat blood cultures drawn 04/11/18 are NGTD x 2 sets. Check rheumatoid factor.--> normal. Continue Ancef 2 g IV every 8 hours. TTE: limited study. Recommend [place] prior to discharge. Duration of treatment depends on the clinical picture, but likely 6 weeks of IV antibiotics. Monitor renal function and dose adjust antibiotics. Midline placed 04/13/18. government services professional to assist with discharge planning. Further recommendations from the ID team to follow pending clinical outcomes and culture results. (3) Osteomyelitis of ankle, right, acute Status: Acute Location: Right ankle. Causative organism: MSSA. Previously treated with 6 weeks of IV nafcillin followed by 2 weeks of oral Keflex. Clinically, the patient improved, but his inflammatory markers did remain elevated. Previous imaging revealed findings consistent with osteomyelitis. Podiatry was consulted, but did not recommend any surgical intervention at that time, so we treated aggressively with IV and oral antibiotics. MRI 04/11/18 showed findings consistent with abscess, osteomyelitis, and severe tenosynovitis. Podiatry consulted. Status post I & D 04/12/18. Operative note reviewed. Intra- op cultures positive for OM. Check ESR and CRP.--> 106 and 286, respectively. Wound culture obtained on admission is positive for MSSA as well. Continue antibiotics as above. Wound care and activity restrictions per the podiatry team. Duration of treatment depends on the clinical picture, but likely 6 weeks. (4) Hyponatremia Status: Acute We secondary to poor by mouth intake. Improved. Further workup and management per the primary team. (5) Low back pain Status: Acute CT scan of the lumbar spine negative for acute abnormality. Likely secondary to fall. Pain management per the primary team. Qualifiers: Chronicity: acute Back pain laterality: midline Sciatica presence: unspecified whether sciatica present Qualified Code(s): M54.5 - Low back pain (6) Fall Status: Acute Qualifiers: Encounter type: subsequent encounter Qualified Code(s): W19.XXXD - Unspecified fall, subsequent encounter (7) Weakness Status: Acute (8) Diabetes mellitus Status: Chronic Recommend aggressive glucose monitoring and control to promote wound healing and prevent reinfection. Management per the primary team. Qualifiers: Diabetes mellitus type: type 2 Diabetes mellitus lobsterman insulin use: with lobsterman use Diabetes mellitus complication status: with neurologic complications Diabetes mellitus complication detail: with polyneuropathy Qualified Code(s): E11.42 - Type 2 diabetes mellitus with diabetic polyneuropathy; Z79.4 - moth exterminator (current) use of insulin (9) Charcot foot due to diabetes mellitus Status: Chronic (10) BROCK (obstructive sleep apnea) Status: Chronic (11) Hypertension Status: Chronic Qualifiers: Hypertension type: essential hypertension Qualified Code(s): I10 - Essential (primary) hypertension (12) CAD (coronary artery disease) Status: Chronic Qualifiers: Coronary Disease-Associated Artery/Lesion type: [place] artery [place] vs. transplanted heart: [place] heart Associated angina: without angina Qualified Code(s): I25.10 - Atherosclerotic heart disease of [place] coronary artery without angina pectoris (13) Urinary retention Status: Acute Status post shah catheter placement. - Subjective Interval history: Patient seen and examined. Weekend notes reviewed. No acute events noted overnight. Patient states overall he feels okay today. Denies fevers, chills, and rigors. Denies chest pain or cough, but does report chronic shortness of breath due to asthma. Denies vomiting or diarrhea this morning. Reports last BM two days ago. Reports persistent nausea. States his appetite is a little better. He denies any abdominal pain. He does report chronic back. He also complains of osteoarthritis pain in his bilateral knees that is at baseline. He denies any oral thrush or new skin lesions. Status post I & D 03/12/[address] Harrington. Infect Dis PN-Objective Data - Labs CBC & Chem 7: 04/17/18 07:50 04/17/18 07:50 Labs: Laboratory Results - last 24 hr 04/15/18 04/16/18 04/16/18 20:25 08:08 12:12 WBC RBC Hgb Hct MCV MCH MCHC RDW Plt Count MPV Seg Neutrophils % Lymphocytes % Monocytes % Eosinophils % Basophils % Neutrophils # Lymphocytes # Monocytes # Eosinophils # Basophils # Platelet Estimate Sodium Potassium Chloride Carbon Dioxide BUN Creatinine Est GFR ( Amer) Est GFR (Non-Af Amer) BUN/Creatinine Ratio Glucose POC Glucose 179 H 160 H 163 H Calculated Osmolality Calcium 04/16/18 04/16/18 04/16/18 14:55 14:55 16:32 WBC 12.4 H RBC 3.60 L Hgb 10.7 L Hct 32.6 L MCV 90.6 MCH 29.7 MCHC 32.8 RDW 14.8 H Plt Count 427 H MPV 9.6 Seg Neutrophils % 74.0 Lymphocytes % 13.0 Monocytes % 10.0 Eosinophils % 2.0 Basophils % 1.0 Neutrophils # 9.2 H Lymphocytes # 1.6 Monocytes # 1.2 Eosinophils # 0.3 Basophils # 0.1 Platelet Estimate Slight increase H Sodium 131 L Potassium 3.7 Chloride 97 L Carbon Dioxide 27 BUN 8 Creatinine 0.51 L Est GFR ( Amer) > 60 Est GFR (Non-Af Amer) > 60 BUN/Creatinine Ratio 16 Glucose 175 H POC Glucose 202 H Calculated Osmolality 275 L Calcium 8.2 L 04/17/18 04/17/18 07:50 07:50 WBC 10.5 RBC 3.33 L Hgb 9.6 L Hct 29.7 L MCV 89.2 MCH 28.8 MCHC 32.3 RDW 14.9 H Plt Count 407 H MPV 9.8 Seg Neutrophils % Lymphocytes % Monocytes % Eosinophils % Basophils % Neutrophils # Lymphocytes # Monocytes # Eosinophils # Basophils # Platelet Estimate Sodium 131 L Potassium 4.0 Chloride 98 Carbon Dioxide 31 H BUN 7 L Creatinine 0.52 L Est GFR ( Amer) > 60 Est GFR (Non-Af Amer) > 60 BUN/Creatinine Ratio 13 Glucose 202 H POC Glucose Calculated Osmolality 276 L Calcium 8.3 L Cultures: Cultures 04/12/18 16:25 Anaerobic Culture - Preliminary Right Foot At this time, no anaerobic growth is present. The culture will be finalized after 5 days of incubation. 04/12/18 16:29 Anaerobic Culture - Preliminary Right Foot At this time, no anaerobic growth is present. The culture will be finalized after 5 days of incubation. 04/12/18 16:18 Anaerobic Culture - Preliminary Right Foot At this time, no anaerobic growth is present. The culture will be finalized after 5 days of incubation. 04/12/18 16:25 Wound Culture - Final Right Foot Staphylococcus aureus 04/11/18 06:48 Blood Culture - Final Peripheral Venipuncture No growth. Final report. 04/11/18 06:40 Blood Culture - Final Peripheral Venipuncture No growth. Final report. 04/12/18 16:29 Wound Culture - Final Right Foot No pathogens isolated. 04/12/18 16:18 Wound Culture - Final Right Foot Staphylococcus aureus 04/12/18 16:18 Acid Fast Stain - Final Right Foot 04/12/18 16:18 Gram Stain - Final Right Foot 04/12/18 16:29 Acid Fast Stain - Final Right Foot 04/12/18 16:25 Acid Fast Stain - Final Right Foot 04/12/18 16:25 Gram Stain - Final Right Foot 04/12/18 16:29 Gram Stain - Final Right Foot Serology 04/12/18 Range/Units 22:16 Urine Color Yellow (Yellow) Urine Clarity Clear (Clear) Urine pH 7.5 (5.0-8.0) pH Units Ur Specific [place] 1.013 (1.010-1.025) Urine Protein 30 H (Neg-Trace) mg/dL Urine Glucose (UA) 500 H (Normal) mg/dL Urine Ketones Trace H (Negative) mg/dL Urine Blood Moderate H (Negative) Urine Nitrite Negative (Negative) Urine Bilirubin Negative (Negative) Urine Urobilinogen 2.0 H (Normal) mg/dL Ur Leukocyte Esterase Negative (Negative) Urine Microscopic RBC 0-3 (0-3) per hpf Urine Microscopic WBC 0-3 (0-3) per hpf Ur Squamous Epith Cells Moderate H (None-Few) per lpf Urine Bacteria None Seen (None-Few) per hpf Hyaline Casts None Seen (None-Few) per lpf Ur Culture Indicated? NO (NO) Exam - Constitutional Vitals: Temp Pulse Resp BP Pulse Ox 98.2 F 82 15 116/66 99 04/17/18 06:28 04/17/18 06:28 04/17/18 06:28 04/17/18 06:28 04/17/18 06:28 General appearance: cooperative, morbidly obese, no acute distress - Head Head exam: Present: atraumatic, normal inspection, normocephalic - Eye Eye exam: Present: EOMI, normal appearance, PERRL Pupils: Present: normal accommodation Additional comments: No subconjunctival hemorrhage noted. - ENT ENT exam: Present: mucous membranes moist - Neck Neck exam: Present: normal inspection - Respiratory Respiratory exam: Present: CTAB. Absent: rales, respiratory distress, rhonchi, wheezes - Cardiovascular Cardiovascular exam: Present: RRR, +S1, +S2 - GI/Abdominal GI/Abdominal exam: Present: distended (obese), normal bowel sounds, soft, tenderness (generalized) Additional comments: Shah catheter noted to be draining clear yellow urine. - Extremities Exam Extremities exam: Present: pedal edema (1+ BLE). Absent: normal inspection Additional comments: Right foot dressing C/D/I. - Neurological Exam Neurological exam: Present: alert, oriented X3, no focal deficits - Psychiatric Psychiatric exam: Present: normal affect, normal mood - Skin Skin exam: Present: dry, intact, normal color, warm Additional comments: No endocarditis stigmata noted. Consult Discharge Plan - Plan Instructions: Urinary Retention in Men (GEN), Cellulitis (DC), Osteomyelitis ( DC), Hyponatremia (DC), Diabetes Mellitus Type 2 in Adults (DC), Sepsis (DC), Acute Low Back Pain (DC), Abscess (GEN), Weakness (GEN), Fall Prevention (DC) Referrals: Segundo Harrington DPM [Partnered Physician] - 04/25/18 11:00 am Prescriptions: ceFAZolin [Ancef] 2,000 mg IVPB Q8HR #30 vial Morphine Sulfate/Naltrexone [Embeda ER 80-3.2 mg Capsule] 1 cap PO BID 5 Days # 10 cap.er.po - Attending Attestation I examined this patient and my medical decision-making was reviewed with the Resident Physician. I agree with the documented findings, disposition and treatment plan as described except to the extent set forth below.
[2018-04-17 11:27] LABS: Lymphocytes # 1.5 K/mcL (0.6-4.6); Monocytes # 0.8 K/mcL (0.0-1.3); Neutrophils # 7.5 K/mcL (1.6-8.9)
[2018-04-17] MEDS: *HR* Midazolam HCl 5 MG/5 ML VIAL IVP PRN ×2 (11:55→12:00)
--- NOTE | 2018-04-17 13:12 | Podiatry Progress Note ---
Date of Encounter: 04/17/18 Time of Encounter: 12:00 - Assessment and Plan (1) Osteomyelitis Current Visit: No Status: Acute Assessment: Ulceration s/p fall to right ankle with associated bacterial infection- Wound cultures positive for MSSA WBC 10.5 and afebrile Improvement in condition Dressing removed and changed at bedside. Improvement in appearance. No appearance of cellulitis at this time and wound appears to be healing as expected Cleansed with saline Iodoform packing 4x4 kerlix and augusta applied as ordered Remain NWB to RLE May be discharged to F when appropriate Antibiotics per ID- Ancef, likely 6 weeks of treatment- Intraop cultures positive for osteomyelitis. Do not allow to become saturated, change PRN Elevate at all times Qualifiers: Osteomyelitis type: subacute Osteomyelitis location: ankle Laterality: right Qualified Code(s): M86.271 - Subacute osteomyelitis, right ankle and foot Subjective Principal diagnosis: Status post I&D right foot ankle Interval history: s/p incision and drainage right ankle right foot talus and fibula bone biopsy per on 04/12 Resting comfortably in bed WBC 10.5 from 12.4. Afebrile States he is doing much better. Denies any fevers chills, n/v or fls. Objective - Vital Signs Vital Signs: Vital Signs Temp Pulse Resp BP Pulse Ox 04/17/18 11:37 98.3 F 74 12 119/60 98 04/17/18 06:28 98.2 F 82 15 116/66 99 04/17/18 03:32 98.6 F 81 16 103/64 99 04/16/18 22:54 98.3 F 85 16 114/63 95 04/16/18 19:38 98.3 F 85 16 130/62 98 04/16/18 16:28 98 F 88 18 105/71 98 Intake and Output 04/16/18 04/17/18 04/17/18 23:59 07:59 15:59 Intake Total 160 / 160 340 / 340 207 / 207 Output Total 1000 / 1000 850 / 850 Balance -840 / -840 -510 / -510 / Intake: IV Fluids 100 / 100 100 / 100 207 / 207 0.9 % Sodium Chloride 500 ML @ 107 / 107 150 mls/hr IVC .Q3H20M ONE Rx#: [id number] Ancef 2,000 MG In 0.9 % Sodium 100 / 100 100 / 100 100 / 100 Chloride 100 ML @ 200 mls/hr IVPB Q8HR [facility] Rx#:[id number] Oral 60 / 60 240 / 240 Output: Urine 1000 / 1000 850 / 850 Other: Meal Dinner NPO Percent of Meal Consumed 10% Weight 129.5 kg 129.274 kg Blood Glucose* 175 212 Patient Weight 04/17/18 23:59 Weight 129.274 kg - Exam Exam: Podiatry General Exam: General appearance: alert awake oriented X 3. Calm and pleasant, no acute distress.. Vascular: Pedal pulses +2/4 DP/PT , No evidence of cyanosis, pallor or rubor, Edema graded at 1+/4, Skin Temperature warm, No calf pain with manual compression. capillary refill time is immediate to digits. Neurologic: Sensation intact with light touch to foot. . Postop Exam: S/P I&D right ankle Lateral ankle surgical wound, suture intact, open wound appears healthy and healing, scant serous drainage noted. No purulent drainage. No surrounding edema or erythema. 80% healthy granulation tissue 20% fibrous slough. No odor. No probe to bone. Wound to dorsal ankle appears to be healing. 3cmx2.5cm with minimal depth. 80% healthy granulation tissue, 20% fibrous slough , scant serous drainage noted. No odor. No surrounding edema or erythema. No warmth. No ascending cellulitis. - Lab Result Diagrams: 04/17/18 07:50 04/17/18 07:50 Labs: Abnormal lab results RBC 3.33 M/mcL (4.19-5.50) L 04/17/18 07:50 Hgb 9.6 g/dL (12.9-16.9) L 04/17/18 07:50 Hct 29.7 % (37.5-50.1) L 04/17/18 07:50 RDW 14.9 % (11.5-14.5) H 04/17/18 07:50 Plt Count 407 K/mcL (140-400) H 04/17/18 07:50 Myelocytes % 2.0 % (0) H 04/17/18 07:50 Platelet Estimate Slight increase (Normal) H 04/17/18 07:50 ESR 106 mm/hr (0-10) H 04/11/18 10:29 Sodium 131 mEq/L (136-145) L 04/17/18 07:50 Carbon Dioxide 31 mEq/L (23-29) H 04/17/18 07:50 BUN 7 mg/dL (8-23) L 04/17/18 07:50 Creatinine 0.52 mg/dL (0.70-1.30) L 04/17/18 07:50 Glucose 202 mg/dL (70-105) H 04/17/18 07:50 POC Glucose 175 mg/dL (70-99) H 04/16/18 20:11 Hemoglobin A1c 7.6 % (-5.6) H 04/10/18 05:49 Calculated Osmolality 276 (280-300) L 04/17/18 07:50 Calcium 8.3 mg/dL (8.6-10.3) L 04/17/18 07:50 C-Reactive Protein 286 mg/L (Less than 10) H 04/11/18 10:29 Urine Protein 30 mg/dL (Neg-Trace) H 04/12/18 22:16 Urine Glucose (UA) 500 mg/dL (Normal) H 04/12/18 22:16 Urine Ketones Trace mg/dL (Negative) H 04/12/18 22:16 Urine Blood Moderate (Negative) H 04/12/18 22:16 Urine Urobilinogen 2.0 mg/dL (Normal) H 04/12/18 22:16 Ur Squamous Epith Cells Moderate per lpf (None-Few) H 04/12/18 22:16 Staphylococcus sp PCR DETECTED (Not Detect) A 04/09/18 20:56 Staph aureus (PCR) DETECTED (Not Detect) A 04/09/18 20:56 Microbiology, Last 48 Hours 04/12/18 16:29 Anaerobic Culture - Final Right Foot No anaerobes were recovered. 04/12/18 16:25 Anaerobic Culture - Preliminary Right Foot At this time, no anaerobic growth is present. The culture will be finalized after 5 days of incubation. 04/12/18 16:18 Anaerobic Culture - Preliminary Right Foot At this time, no anaerobic growth is present. The culture will be finalized after 5 days of incubation. 04/12/18 16:25 Wound Culture - Final Right Foot Staphylococcus aureus 04/11/18 06:48 Blood Culture - Final Peripheral Venipuncture No growth. Final report. 04/11/18 06:40 Blood Culture - Final Peripheral Venipuncture No growth. Final report. 04/12/18 16:29 Wound Culture - Final Right Foot No pathogens isolated. 04/12/18 16:18 Wound Culture - Final Right Foot Staphylococcus aureus Consult Discharge Plan - Plan Referrals: Segundo Harrington DPM [Partnered Physician] - Myron Henderson [Primary Care Provider] -
--- NOTE | 2018-04-17 15:59 | Discharge Summary ---
- NOTES TO OUTPATIENT PROVIDER Notes to Outpatient Provider: Patient to follow-up with infectious disease and podiatry as an outpatient Orders not resulted at time of discharge: Pending orders 04/12/18 16:18 AFB Culture, Tissue [TB] Routine AFB Smear [TB] Routine Culture,Anaerobic [RM] Routine Fungal Culture [MYC] Routine 04/12/18 16:25 AFB Culture, Tissue [TB] Routine AFB Smear [TB] Routine Culture,Anaerobic [RM] Routine Fungal Culture [MYC] Routine 04/12/18 16:29 AFB Culture, Tissue [TB] Routine AFB Smear [TB] Routine Fungal Culture [MYC] Routine Date of Encounter: 04/17/18 Time of Encounter: 11:00 - Discharge Diagnosis (1) Osteomyelitis of ankle, right, acute Priority: Primary Status: Acute (2) Bacteremia Priority: Primary Status: Acute (3) Sepsis Priority: Primary Status: Acute Qualifiers: Sepsis type: methicillin susceptible Staphylococcus aureus Qualified Code(s ): A41.01 - Sepsis due to Methicillin susceptible Staphylococcus aureus (4) Fall Priority: Secondary Status: Acute Qualifiers: Encounter type: subsequent encounter Qualified Code(s): W19.XXXD - Unspecified fall, subsequent encounter (5) CAD (coronary artery disease) Priority: Secondary Status: Chronic Qualifiers: Coronary Disease-Associated Artery/Lesion type: [place] artery [place] vs. transplanted heart: [place] heart Associated angina: without angina Qualified Code(s): I25.10 - Atherosclerotic heart disease of [place] coronary artery without angina pectoris (6) Hypertension Priority: Secondary Status: Chronic Qualifiers: Hypertension type: essential hypertension Qualified Code(s): I10 - Essential (primary) hypertension (7) Diabetes mellitus Priority: Secondary Status: Chronic Qualifiers: Diabetes mellitus type: type 2 Diabetes mellitus terminal manager insulin use: with longterm use Diabetes mellitus complication status: with neurologic complications Diabetes mellitus complication detail: with polyneuropathy Qualified Code(s): E11.42 - Type 2 diabetes mellitus with diabetic polyneuropathy; Z79.4 - senior living (current) use of insulin (8) Charcot foot due to diabetes mellitus Priority: Secondary Status: Chronic (9) Asthma Priority: Secondary Status: Chronic Qualifiers: Asthma severity: unspecified severity Asthma persistence: unspecified Asthma complication type: uncomplicated Qualified Code(s): J45.909 - Unspecified asthma, uncomplicated (10) BROCK (obstructive sleep apnea) Priority: Secondary Status: Chronic (11) Morbid obesity Priority: Secondary Status: Chronic (12) Hyponatremia Priority: Secondary Status: Acute (13) Hypokalemia Priority: Secondary Status: Resolved (14) Urinary retention Priority: Secondary Status: Acute Hospital course: Patient is a 63-year-old male with past medical history significant for asthma, COPD, DM, HLD, CAD, CABG, history of osteomyelitis of the right ankle. Patient was Discharged 12/2017 on antibiotics and presented to the ER following a mechanical fall when he was trying to get out of bed. Patient reports chronic right ankle wound related to his checkup. For which he changes his dressings daily and has been following with podiatry. He was admitted to medical surgical floor for further management. The patients hospital stay podiatry was consulted and an incision and drainage was done on right ankle to concerns of osteomyelitis secondary to MSSA which was also found and patients blood. Infectious disease was consulted with recommendations for a 6 week course of IV Ancef. Transesophageal echocardiogram was done which did not show any endocarditis. Patient will be discharged to the [facility] to continue IV antibiotics and to follow- up with podiatry in addition to infectious disease. - Time Spent with Patient Total time spent providing and/or coordinating discharge services: - Discharge Medications Prescriptions: ceFAZolin [Ancef] 2,000 mg IVPB Q8HR #30 vial Morphine Sulfate/Naltrexone [Embeda ER 80-3.2 mg Capsule] 1 cap PO BID 5 Days # 10 cap.er.po Home Medications: Amlodipine Besylate 10 mg PO DAILY 07/11/17 [History] Aspirin 81 mg PO DAILY 07/11/17 [History] Atorvastatin Calcium 40 mg PO HS 07/11/17 [History] Clopidogrel [Plavix] 75 mg PO DAILY 07/11/17 [History] EPINEPHrine [Epipen] 0.3 mg IM ONCE PRN 07/11/17 [History] Fluticasone/Salmeterol [Advair Hfa 230-21 Mcg Inhaler] 2 puff IH BID 07/11/17 [ History] Folic Acid 1 mg PO DAILY 07/11/17 [History] Gabapentin [Neurontin] 800 mg PO QID 07/11/17 [History] Insulin Human Regular [HumuLIN R] 25 unit SQ TID 07/11/17 [History] Nitroglycerin [Nitrostat] 0.4 mg SL Q5M PRN MDD [id number] call 911 07/11/17 [ History] Omeprazole [PriLOSEC] 20 mg PO DAILY 07/11/17 [History] Oxygen 2 l NS HS 07/11/17 [History] Potassium Chloride [Klor-Con 10] 10 meq PO DAILY 07/11/17 [History] Empagliflozin [Jardiance] 10 mg PO DAILY 01/20/18 [History] FLUoxetine HCl [Prozac] 60 mg PO DAILY 01/20/18 [History] Furosemide [Lasix] 80 mg PO BID 01/20/18 [History] Montelukast [Singulair] 10 mg PO DAILY 01/20/18 [History] Pramlintide Acetate [Symlinpen 120] 120 mg SQ TIDWM 01/20/18 [History] Albuterol Neb [Proventil Neb] 2.5 mg IH Q4HR PRN 04/11/18 [History] Insulin DETEMIR [Levemir Flextouch] 30 unit SQ TID 04/11/18 [History] Isosorbide MONOnitrate (24 HR) [Imdur] 30 mg PO DAILY 04/11/18 [History] Losartan/Hydrochlorothiazide [Hyzaar 100-12.5 Tablet] 1 tab PO DAILY 04/11/18 [ History] Magnesium Oxide [Magnesium] 400 mg PO DAILY 04/11/18 [History] Multivitamin [One Daily Multivitamin] 1 tab PO DAILY 04/11/18 [History] Yale-3/Dha/Epa/Fish Oil [Fish Oil 1,000 mg Softgel] 1 cap PO DAILY 04/11/18 [ History] Morphine Sulfate/Naltrexone [Embeda ER 80-3.2 mg Capsule] 1 cap PO BID 5 Days # 10 cap.er.po 04/17/18 [Rx] ceFAZolin [Ancef] 2,000 mg IVPB Q8HR #30 vial 04/17/18 [Rx] Allergies/Adverse Reactions: 3 Allergy/AdvReac Type Severity Reaction Status Date / Time dapagliflozin [From [facility]] Allergy Hives Verified 01/20/18 19:08 naphazoline Allergy Hives Verified 01/20/18 19:08 cath DYE Allergy Hives Uncoded 01/20/18 19:08 Date of admission: 04/10/18 12:14 Primary care physician: Caio Henderson Consults: 04/10/18 14:35 Consult to Infectious Diseases [CONS] Routine Consulting Provider: Infectious Disease Lisa Reason for Consult: Staph bacteremia Time Notified: 14:00 Call Completed: Yes 04/13/18 10:29 Consult to Invasive Line Access Team [CONS] Routine Reason for Consult: home atb Line Type: Midline - Constitutional Vitals: Temp Pulse Resp BP Pulse Ox 98.3 F 89 15 107/66 99 04/17/18 14:37 04/17/18 14:37 04/17/18 14:37 04/17/18 14:37 04/17/18 14:37 General appearance: Present: A&O X 3, morbidly obese, pleasant, no acute distress Exam: Gen.: Nonacute distress, alert and oriented 3 Respiratory: Lungs are clear to auscultation bilaterally without any wheezing rhonchi or rales Cardiovascular: Normal S1 and S2 regular rate rhythm no murmurs rubs or gallops - Patient Status Disposition: Transfer SNF Condition: Fair - Discharge Instructions Instructions: Urinary Retention in Men (GEN), Cellulitis (DC), Osteomyelitis ( DC), Hyponatremia (DC), Diabetes Mellitus Type 2 in Adults (DC), Sepsis (DC), Acute Low Back Pain (DC), Abscess (GEN), Weakness (GEN), Fall Prevention (DC) Follow Up With: Segundo Harrington DPM [Partnered Physician] - 04/25/18 11:00 am
--- NOTE | 2018-04-17 16:00 | Physician Discharge Referral ---
ExtendedCare Referral Info Institutional Level of Care: Intermediate - Diagnosis (1) Osteomyelitis of ankle, right, acute Status: Acute (2) Bacteremia Status: Acute (3) Sepsis Status: Acute (4) Fall Status: Acute (5) CAD (coronary artery disease) Status: Chronic (6) Hypertension Status: Chronic (7) Diabetes mellitus Status: Chronic (8) Charcot foot due to diabetes mellitus Status: Chronic (9) Asthma Status: Chronic (10) BROCK (obstructive sleep apnea) Status: Chronic (11) Morbid obesity Status: Chronic (12) Hyponatremia Status: Acute (13) Hypokalemia Status: Resolved (14) Urinary retention Status: Acute (15) DVT prophylaxis Status: Acute - Transfer Medications Prescriptions: ceFAZolin [Ancef] 2,000 mg IVPB Q8HR #30 vial Morphine Sulfate/Naltrexone [Embeda ER 80-3.2 mg Capsule] 1 cap PO BID 5 Days # 10 cap.er.po Home Medications: Amlodipine Besylate 10 mg PO DAILY 07/11/17 [History] Aspirin 81 mg PO DAILY 07/11/17 [History] Atorvastatin Calcium 40 mg PO HS 07/11/17 [History] Clopidogrel [Plavix] 75 mg PO DAILY 07/11/17 [History] EPINEPHrine [Epipen] 0.3 mg IM ONCE PRN 07/11/17 [History] Fluticasone/Salmeterol [Advair Hfa 230-21 Mcg Inhaler] 2 puff IH BID 07/11/17 [ History] Folic Acid 1 mg PO DAILY 07/11/17 [History] Gabapentin [Neurontin] 800 mg PO QID 07/11/17 [History] Insulin Human Regular [HumuLIN R] 25 unit SQ TID 07/11/17 [History] Nitroglycerin [Nitrostat] 0.4 mg SL Q5M PRN MDD [id number] call 911 07/11/17 [ History] Omeprazole [PriLOSEC] 20 mg PO DAILY 07/11/17 [History] Oxygen 2 l NS HS 07/11/17 [History] Potassium Chloride [Klor-Con 10] 10 meq PO DAILY 07/11/17 [History] Empagliflozin [Jardiance] 10 mg PO DAILY 01/20/18 [History] FLUoxetine HCl [Prozac] 60 mg PO DAILY 01/20/18 [History] Furosemide [Lasix] 80 mg PO BID 01/20/18 [History] Montelukast [Singulair] 10 mg PO DAILY 01/20/18 [History] Pramlintide Acetate [Symlinpen 120] 120 mg SQ TIDWM 01/20/18 [History] Albuterol Neb [Proventil Neb] 2.5 mg IH Q4HR PRN 04/11/18 [History] Insulin DETEMIR [Levemir Flextouch] 30 unit SQ TID 04/11/18 [History] Isosorbide MONOnitrate (24 HR) [Imdur] 30 mg PO DAILY 04/11/18 [History] Losartan/Hydrochlorothiazide [Hyzaar 100-12.5 Tablet] 1 tab PO DAILY 04/11/18 [ History] Magnesium Oxide [Magnesium] 400 mg PO DAILY 04/11/18 [History] Multivitamin [One Daily Multivitamin] 1 tab PO DAILY 04/11/18 [History] [place]-3/Dha/Epa/Fish Oil [Fish Oil 1,000 mg Softgel] 1 cap PO DAILY 04/11/18 [ History] Morphine Sulfate/Naltrexone [Embeda ER 80-3.2 mg Capsule] 1 cap PO BID 5 Days # 10 cap.er.po 04/17/18 [Rx] ceFAZolin [Ancef] 2,000 mg IVPB Q8HR #30 vial 04/17/18 [Rx] Allergies/Adverse Reactions: 3 Allergy/AdvReac Type Severity Reaction Status Date / Time dapagliflozin [From [facility]] Allergy Hives Verified 01/20/18 19:08 naphazoline Allergy Hives Verified 01/20/18 19:08 cath DYE Allergy Hives Uncoded 01/20/18 19:08 - Respiratory Orders Smoking Cessation: Smoking cessation has been advised. For more information, call the [place] Tobacco Quit Line at 5-686-NTYO-NOW. CERTIFICATION: I certify that the transfer of the above named patient to an Extended Care Facility is necessary for the continuing treatment of the diagnosis listed. The above information is true and accurate reflection of patient's current condition. Confidential - Redisclosure prohibited without a patient's written consent.
[2018-04-17] MEDS: Insulin DETEMIR 100 UNIT/ML X5UNITS SQ SCH (21:23)
[2018-04-17] MEDS: *HR* HYDROcodone/Acet 7.5/325 mg TABLET PO PRN (21:24)
[2018-04-18] MEDS: *HR* Enoxaparin 40 MG/0.4 ML SYRINGE SQ SCH (05:51)
[2018-04-18] MEDS: *HR* HYDROcodone/Acet 7.5/325 mg TABLET PO PRN (05:53)
[2018-04-18 06:14] VITALS: BP 92/58
[2018-04-18] MEDS: amLODIPine 5 MG TABLET PO SCH (07:34)
[2018-04-18] MEDS: Insulin LISPRO 300 UNITS/3 ML VIAL SQ SCH (07:35)
[2018-04-18] MEDS: Aspirin 81 MG TAB.CHEW PO SCH (07:35)
[2018-04-18] MEDS: NALTREXONE PO SCH (07:36)
[2018-04-18] MEDS: MORPHINE PO SCH (07:36)
--- NOTE | 2018-04-18 11:17 | Internal Med Progress Note ---
Hospitalist Progress Note - Encounter Date of Encounter: 04/18/18 Time of Encounter: 11:00 - Subjective Interval History: No acute events overnight - Exam Vitals: Temp Pulse Resp BP Pulse Ox 98.3 F 82 16 92/58 98 04/18/18 06:13 04/18/18 06:13 04/18/18 06:13 04/18/18 06:13 04/18/18 06:13 Exam: Gen.: Nonacute distress, alert and oriented 3 Respiratory: Lungs are clear to auscultation bilaterally without any wheezing rhonchi or rales Cardiovascular: Normal S1 and S2 regular rate rhythm no murmurs rubs or gallops - Assessment and Plan (1) Osteomyelitis of ankle, right, acute Status: Acute Assessment and Plan: Status post I&D of right ankle due to concerns of osteomyelitis secondary to MSSA MRI 04/11/18 showed findings consistent with abscess, osteomyelitis, and severe tenosynovitis. Infectious disease following with recommendations for 6 weeks of IV ancef 04/18. Pt was discharged today. Follow up outpatient with Infectious diseases and podiatry (2) Charcot foot due to diabetes mellitus Status: Chronic Assessment and Plan: See sepsis and bacteremia for plan of care (3) Diabetes mellitus Status: Chronic Assessment and Plan: Continue basal and prandial insulin. . (4) Hypertension Status: Chronic Assessment and Plan: controlled on current meds, continue same (5) CAD (coronary artery disease) Status: Chronic Assessment and Plan: Chronic and stable, continue home meds (6) Asthma Status: Chronic Assessment and Plan: not in exacerbation continue singulair albuterol nebs prn (7) BROCK (obstructive sleep apnea) Status: Chronic Assessment and Plan: CPAP at bedtime (8) Morbid obesity Status: Chronic Assessment and Plan: Lifestyle modification (9) Hyponatremia Status: Acute Assessment and Plan: stable, pseudohyponatremia due to hyperglycemia (10) Fall Status: Acute Assessment and Plan: Physical and occupational therapy evaluation-for SNF placement (11) Sepsis Status: Acute Assessment and Plan: Resolved; Secondary to MSSA bacteremia as well as right ankle acute osteomyelitis Continue IV antibiotics as above (12) Hypokalemia Status: Resolved Assessment and Plan: Resolved. (13) Bacteremia Status: Acute Assessment and Plan: Resolved. Repeat blood culture 04/11 with no growth Blood cultures obtained 9/9/18 were +2 out of 2 sets Continue Ancef 2 g IV every 8 hours Recommendations for [place] prior to discharge due to limited study of TTE (14) Urinary retention Status: Acute Assessment and Plan: Acute urinary retention 04/2010 with placement of Christensen catheter. Urine analysis with no evidence of infection Continue to monitor DVT Prophylaxis: Lovenox - Time Spent with Patient Total time spent is greater than 50% in coordination of care (as documented) at patient's floor/unit and/or counseling patient: Internal Medicine: Result - Labs CBC & Chem 7: 04/17/18 07:50 04/17/18 07:50 Labs: Short CBC 04/17/18 Range/Units 07:50 Neutrophils # 7.5 (1.6-8.9) K/mcL Consult Discharge Plan - Plan Instructions: Urinary Retention in Men (GEN), Cellulitis (DC), Osteomyelitis ( DC), Hyponatremia (DC), Diabetes Mellitus Type 2 in Adults (DC), Sepsis (DC), Acute Low Back Pain (DC), Abscess (GEN), Weakness (GEN), Fall Prevention (DC) Referrals: Segundo Harrington DPM [Partnered Physician] - 04/25/18 11:00 am Prescriptions: ceFAZolin [Ancef] 2,000 mg IVPB Q8HR #30 vial Morphine Sulfate/Naltrexone [Embeda ER 80-3.2 mg Capsule] 1 cap PO BID 5 Days # 10 cap.er.po (3) Diabetes mellitus Qualifiers: Diabetes mellitus type: type 2 Diabetes mellitus intermediate insulin use: with intermediate use Diabetes mellitus complication status: with neurologic complications Diabetes mellitus complication detail: with polyneuropathy Qualified Code(s): E11.42 - Type 2 diabetes mellitus with diabetic polyneuropathy; Z79.4 - exterminator termite (current) use of insulin (4) Hypertension Qualifiers: Hypertension type: essential hypertension Qualified Code(s): I10 - Essential (primary) hypertension (5) CAD (coronary artery disease) Qualifiers: Coronary Disease-Associated Artery/Lesion type: [place] artery [place] vs. transplanted heart: [place] heart Associated angina: without angina Qualified Code(s): I25.10 - Atherosclerotic heart disease of [place] coronary artery without angina pectoris (6) Asthma Qualifiers: Asthma severity: unspecified severity Asthma persistence: unspecified Asthma complication type: uncomplicated Qualified Code(s): J45.909 - Unspecified asthma, uncomplicated (10) Fall Qualifiers: Encounter type: subsequent encounter Qualified Code(s): W19.XXXD - Unspecified fall, subsequent encounter (11) Sepsis Qualifiers: Sepsis type: methicillin susceptible Staphylococcus aureus Qualified Code(s) : A41.01 - Sepsis due to Methicillin susceptible Staphylococcus aureus
== END 2018-04-18 10:01 | DRG 854 ==
LOC: 3BNU 00:48 → EMEROOARM 00:48 → SUATTDRO 04:16 → 3BNU 05:29 → SUATTDRO 04-10 12:14
PROVIDERS: ADMIT Pediatrics; ATTEND Hospitalist

== ENCOUNTER 2018-04-25 12:13 | Inpatient (IN) ==
--- NOTE | 2018-04-25 12:23 | Emergency Department Note ---
Disposition Clinical Impression: Osteomyelitis Qualifiers: Osteomyelitis type: chronic, with draining sinus Osteomyelitis location: foot Laterality: right Qualified Code(s): M86.471 - Chronic osteomyelitis with draining sinus, right ankle and foot Disposition: Admitted As Inpatient Condition: Fair Referrals: Myron Henderson [Non-Partnered Physician] - Extremity Problem HPI - General Chief complaint: ED Extremity Problem,Nontraumatic Stated complaint: RLE wound Time Seen by Provider: 04/25/18 12:20 Source: patient, EMS Limitations: no limitations Nursing Notes Reviewed: Yes Vital Signs Reviewed: Yes - History of Present Illness HPI Narrative: Pt is a 63M that developed a charcot joint in his right foot in August 2017, developed an ulcer from his boot rubbing, and subsequently developed osteomyelitis treated with outpt IV Abx after several hospital stays, presenting today with increased pain, swelling, and purulent drainage. Pt reports that his foot pain is described as sharp in nature, constant, 10/10, and non-radiating. Dr. Tanner sent him from clinic to be admitted for surgery. Dr. Tanner is requesting basic labs and a dose of zosyn. Pain Scale: 10 - Related Data Home Medications Medication Instructions Recorded Confirmed Amlodipine Besylate 10 mg PO DAILY 07/11/17 04/25/18 Aspirin 81 mg PO DAILY 07/11/17 04/25/18 Atorvastatin Calcium 40 mg PO HS 07/11/17 04/25/18 Clopidogrel [Plavix] 75 mg PO DAILY 07/11/17 04/25/18 EPINEPHrine [Epipen] 0.3 mg IM ONCE PRN 07/11/17 04/25/18 Fluticasone/Salmeterol [Advair Hfa 2 puff IH BID 07/11/17 04/25/18 230-21 Mcg Inhaler] Folic Acid 1 mg PO DAILY 07/11/17 04/25/18 Gabapentin [Neurontin] 800 mg PO QID 07/11/17 04/25/18 Nitroglycerin [Nitrostat] 0.4 mg SL Q5M PRN MDD [id number] call 07/11/17 04/25/18 911 Omeprazole [PriLOSEC] 20 mg PO DAILY 07/11/17 04/25/18 Oxygen 2 l NS HS 07/11/17 04/25/18 Potassium Chloride [Klor-Con 10] 10 meq PO DAILY 07/11/17 04/25/18 Empagliflozin [Jardiance] 10 mg PO DAILY 01/20/18 04/25/18 FLUoxetine HCl [Prozac] 60 mg PO DAILY 01/20/18 04/25/18 Furosemide [Lasix] 80 mg PO BID 01/20/18 04/25/18 Montelukast [Singulair] 10 mg PO DAILY 01/20/18 04/25/18 Pramlintide Acetate [Symlinpen 120] 120 mg SQ TIDWM 01/20/18 04/25/18 Albuterol Neb [Proventil Neb] 2.5 mg IH Q4HR PRN 04/11/18 04/25/18 Isosorbide MONOnitrate (24 HR) 30 mg PO DAILY 04/11/18 04/25/18 [Imdur] Losartan/Hydrochlorothiazide 1 tab PO DAILY 04/11/18 04/25/18 [Hyzaar 100-12.5 Tablet] Magnesium Oxide [Magnesium] 400 mg PO DAILY 04/11/18 04/25/18 Multivitamin [One Daily 1 tab PO DAILY 04/11/18 04/25/18 Multivitamin] [place]-3/Dha/Epa/Fish Oil [Fish Oil 1 cap PO DAILY 04/11/18 04/25/18 1,000 mg Softgel] Collagenase Oint [Santyl] 1 appl TP DAILY 04/25/18 04/25/18 Insulin Regular U-500 [HumuLIN R 25 unit SQ TID 04/25/18 04/25/18 U-500] Metoprolol Succinate [Toprol Xl] 50 mg PO DAILY 04/25/18 04/25/18 Omalizumab [XOLAIR (For Outpatient 300 mg SQ Q2W 04/25/18 04/25/18 Infusion)] Tiotropium [Spiriva] 18 mcg IH DAILY 04/25/18 04/25/18 Previous Rx's Medication Instructions Recorded Morphine Sulfate/Naltrexone 1 cap PO BID 5 Days #10 cap.er.po 04/17/18 [Embeda ER 80-3.2 mg Capsule] Allergies Allergy/AdvReac Type Severity Reaction Status Date / Time dapagliflozin [From [facility]] Allergy Hives Verified 01/20/18 19:08 naphazoline Allergy Hives Verified 01/20/18 19:08 cath DYE Allergy Hives Uncoded 01/20/18 19:08 Constitutional: Reports: fever Cardiovascular: Reports: chest pain (has had chest pain for years, no worsening of existing pain) Respiratory: Denies: cough, dyspnea Gastrointestinal: Reports: abdominal pain, diarrhea. Denies: nausea, vomiting Musculoskeletal: Reports: joint swelling (R ankle) Integumentary: Reports: abrasion (RLE) Neurological: Reports: headache, weakness Past Medical History - Past Medical History Medical history: Reports: arthritis, asthma, atrial fibrillation, coronary artery disease, DVT, diabetes, GERD, hyperlipidemia, hypertension, myocardial infarction, other Surgical history: Reports: angioplasty/stent, appendectomy, cataract, cholecystectomy, coronary bypass (CABG), herniorrhaphy Psychiatric history: Reports: anxiety, depression - Social History Smoking Status: Former smoker Smokeless Tobacco Status: No Alcohol use: Reports: none Drug use: Reports: none Physical Exam - General Limitations: no limitations General appearance: alert, in no apparent distress - Head Head exam: atraumatic, normocephalic - Eye Eye exam: Present: normal appearance, miosis - ENT ENT exam: normal exam, mucous membranes moist - Chest Chest inspection: Present: normal inspection, symmetric chest wall rise - Respiratory Respiratory exam: Present: normal lung sounds bilaterally - Cardiovascular Cardiovascular exam: Present: regular rate, normal rhythm - Abdominal Exam Abdominal exam: Present: soft, Non-Tender - Expanded Lower Extremity Exam Foot/toe exam: Present: tenderness, swelling (pedal edema, lower foot edema), abrasion (dorsal ulceration with granulation tissue measuring 3cm by 2cm, lateral malleolus ulceration with erythema, bloody purulent drainage, tenderness , and swelling measuring 5cm x 3cm. 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 CBC, BMP have been ordered. A dose of Zosyn has been given. Acetominophen has been administered for headache. Hospitalist has accepted the patient and he has been admitted. Vital Signs Temperature 99.5 F 04/25/18 12:14 Pulse Rate 83 04/25/18 12:14 Respiratory Rate 18 04/25/18 12:14 Blood Pressure 112/61 04/25/18 12:14 O2 Sat by Pulse Oximetry 95 04/25/18 12:14 Temperature 99.5 F 04/25/18 12:14 Pulse Rate 83 04/25/18 15:13 Respiratory Rate 18 04/25/18 15:13 Blood Pressure 100/76 04/25/18 15:13 O2 Sat by Pulse Oximetry 97 04/25/18 15:13 Oxygen Delivery Oxygen Delivery Room Air Extremity Problem, Nontraumati - MDM Narrative Medical decision making narrative: Pt was sent over from kettle worker office for failure of outpatient management of osteomyelitis. His kettle worker would like him to be admitted for surgery tomorrow. We obtained basic labs, treated his headache, and gave him a dose of zosyn. He remained stable during his course in the ED. - Differential Diagnosis Likely: other (osteomyelitis) - Medical Records Medical records reviewed: Yes I reviewed the patient's medical records. - Lab Data Result diagrams: 04/25/18 13:52 04/25/18 13:52 Lab Results 04/25/18 04/25/18 04/25/18 Range/Units 13:52 13:52 13:52 WBC 11.4 H (4.3-11.1) K/mcL RBC 3.37 L (4.19-5.50) M/mcL Hgb 9.7 L (12.9-16.9) g/dL Hct 30.1 L (37.5-50.1) % MCV 89.3 (83.0-100.0) fL MCH 28.8 (28.0-33.3) pg MCHC 32.2 (31.6-35.5) g/dL RDW 14.0 (11.5-14.5) % Plt Count 498 H (140-400) K/mcL MPV 10.5 (9.4-12.4) fL Immature Gran % 1.1 (0-4) % Seg Neutrophils % 68.3 % Lymphocytes % 16.4 % Monocytes % 9.5 % Eosinophils % 3.9 % Basophils % 0.8 % Neutrophils # 7.8 (1.6-8.9) K/mcL Lymphocytes # 1.9 (0.6-4.6) K/mcL Monocytes # 1.1 (0.0-1.3) K/mcL Eosinophils # 0.4 (0.0-0.6) K/mcL Basophils # 0.1 (0.0-0.2) K/mcL PT 13.3 H (9.4-12.1) Seconds INR 1.2 APTT 31.1 (26.0-36.0) Seconds Sodium 131 L (136-145) mEq/L Potassium 3.3 L (3.5-5.1) mEq/L Chloride 89 L (98-107) mEq/L Carbon Dioxide 36 H (23-29) mEq/L BUN 9 (8-23) mg/dL Creatinine 0.58 L (0.70-1.30) mg/dL Est GFR ( Amer) > 60 (> 60) Est GFR (Non-Af Amer) > 60 (> 60) BUN/Creatinine Ratio 16 (6-26) Glucose 115 H (70-105) mg/dL Calculated Osmolality 272 L (280-300) Calcium 8.6 (8.6-10.3) mg/dL Attestation Statement - Attestation Attestation: I, Raffi Jeffery, examined this patient and my medical decision-making was reviewed with the TRACTOR OPERATOR [employer]TERY/PA/Advanced Practice Nurse/Resident Physician. I agree with the documented findings, disposition and treatment plan as described except to the extent set forth below. 63-year-old male presents emergency Department with concerns of pain to the right foot. Patient states he was recently being treated with PICC line and outpatient antibiotics by Dr. Tanner and wound care. Dr. Tanner evaluated the foot today and noticed that it was draining purulent fluid. He recommended patient be evaluated in the emergency department likely admitted the hospital for further care and evaluation. The resident physician, Dr. Escamilla, spoke with Dr. Tanner regarding the patient's case and presentation. He recommended the patient be admitted and he will perform surgery on the foot tomorrow.
[2018-04-25] MEDS ORDERED: Acetaminophen 325 MG TABLET PO ONE (12:50)
[2018-04-25] MEDS ORDERED: Piperacillin/Tazobactam 3.375 GM in Water for inj. (sterile) 20 ML 20 ML IVP ONE (12:56)
[2018-04-25 14:43] LABS: Basophils # 0.1 K/mcL (0.0-0.2); Basophils % 0.8 %; Eosinophils # 0.4 K/mcL (0.0-0.6); Eosinophils % 3.9 %; Hematocrit 30.1 % (37.5-50.1); Hemoglobin 9.7 g/dL (12.9-16.9); Immature Granulocytes % 1.1 % (0-4); Lymphocytes # 1.9 K/mcL (0.6-4.6); Lymphocytes % 16.4 %; Mean Corpuscular HGB Conc 32.2 g/dL (31.6-35.5); Mean Corpuscular Hemoglobin 28.8 pg (28.0-33.3); Mean Corpuscular Volume 89.3 fL (83.0-100.0); Mean Platelet Volume 10.5 fL (9.4-12.4); Monocytes # 1.1 K/mcL (0.0-1.3); Monocytes % 9.5 %; Neutrophils # 7.8 K/mcL (1.6-8.9); Platelet Count 498 K/mcL (140-400); Red Blood Count 3.37 M/mcL (4.19-5.50); Segmented Neutrophils % 68.3 %
[2018-04-25 14:56] LABS: INR 1.2; Prothrombin Time 13.3 Seconds (9.4-12.1)
[2018-04-25 14:59] LABS: Activated Partial Thrombo Time 31.1 Seconds (26.0-36.0)
[2018-04-25 15:09] LABS: BUN/Creatinine Ratio 16 (6-26); Blood Urea Nitrogen 9 mg/dL (8-23); Calcium 8.6 mg/dL (8.6-10.3); Carbon Dioxide 36 mEq/L (23-29); Chloride 89 mEq/L (98-107); Glucose 115 mg/dL (70-105); Osmolality,Calculated 272 (280-300); Potassium 3.3 mEq/L (3.5-5.1); Sodium 131 mEq/L (136-145); eGFR For Non-African Americans > 60 (> 60)
[2018-04-25] MEDS ORDERED: Naloxone 0.4 MG/ML INJ IVP PRN (15:54)
[2018-04-25] MEDS ORDERED: Potassium Chloride 20 MEQ, Lidocaine 1% 2 ML in D5% in Water 250 ML IVPB ONE (15:57)
[2018-04-25] MEDS ORDERED: D5% in Water 1,000 ML IVC PRN (15:59)
[2018-04-25] MEDS ORDERED: Dextrose Gel 15 GM/37.5 ML TUBE PO PRN ×2 (15:59)
[2018-04-25] MEDS ORDERED: *HR* Dextrose 50 % in Water (Syg) 50 ML SYRINGE IVP PRN (15:59)
--- NOTE | 2018-04-25 16:23 | Internal Med History&Physical ---
Date of Encounter: 04/25/18 Time of Encounter: 16:23 Internal Medicine - H&P: HPI Chief complaint: foot pain, wound drainage Admitted From: Emergency Dept Plans for Post Hospital Care: Home History of present illness: Mr. Newsome is a 63 year old male past medical history of COPD diabetes hyperlipidemia CAD CABG history of osteomyelitis of his right ankle. He has had multiple hospitalizations for his wound to his right ankle discharge 2017 on antibiotics also discharged 04/17/2018 again for sepsis and IV antibiotics. On his last admission patient was seen by infectious disease was found to have osteomyelitis of his right ankle causative organism MSSA. Patient discharged to [facility] with continued IV Ancef for 6 week course. During the previous admission he did undergo transesophageal echocardiogram which did not show any endocarditis. He was receiving wound care at the [facility] and he went for a follow- up today with podiatry. While in the bakeshop cleaner's office his wound did open with thick purulent drainage. He was sent to the ER for evaluation. Lab work was completed which did show some hyponatremia as well as hypokalemia. He does have a low-grade temperature 99.5 his systolic is on the low side at 100. Podiatry consult and patient will be admitted for possible I&D in a.m. We will obtain wound cultures as well as blood cultures continue with Zosyn and add vancomycin patient will be nothing by mouth after midnight currently he is hemodynamically stable and denies any pain or discomfort. Past Med Surg Social Fam HX - Past Medical History Medical history: arthritis, asthma, atrial fibrillation, coronary artery disease , DVT, diabetes, GERD, hyperlipidemia, hypertension, myocardial infarction, other Additional medical history: BROCK. DJD Psychiatric history: anxiety, depression - Past Surgical History Surgical History: angioplasty/stent, appendectomy, cataract, cholecystectomy, coronary bypass (CABG), herniorrhaphy Additional surgical history: KNEE SURGERY , stent x1 - Social History Smoking Status: Former smoker Smokeless Tobacco Status: No Alcohol use: none Drug use: none - Family History Mother Living Status: Hx Family Cardiac Disorders: Yes (CHF) Hx Family Endocrine Disorder: Yes (DM) Father Living Status: Hx Family Cardiac Disorders: Yes ([place]) Internal Medicine - H&P: Meds Amlodipine Besylate 10 mg PO DAILY 07/11/17 [History] Aspirin 81 mg PO DAILY 07/11/17 [History] Atorvastatin Calcium 40 mg PO HS 07/11/17 [History] Clopidogrel [Plavix] 75 mg PO DAILY 07/11/17 [History] EPINEPHrine [Epipen] 0.3 mg IM ONCE PRN 07/11/17 [History] Fluticasone/Salmeterol [Advair Hfa 230-21 Mcg Inhaler] 2 puff IH BID 07/11/17 [ History] Folic Acid 1 mg PO DAILY 07/11/17 [History] Gabapentin [Neurontin] 800 mg PO QID 07/11/17 [History] Nitroglycerin [Nitrostat] 0.4 mg SL Q5M PRN MDD [id number] call 911 07/11/17 [ History] Omeprazole [PriLOSEC] 20 mg PO DAILY 07/11/17 [History] Oxygen 2 l NS HS 07/11/17 [History] Potassium Chloride [Klor-Con 10] 10 meq PO DAILY 07/11/17 [History] Empagliflozin [Jardiance] 10 mg PO DAILY 01/20/18 [History] FLUoxetine HCl [Prozac] 60 mg PO DAILY 01/20/18 [History] Furosemide [Lasix] 80 mg PO BID 01/20/18 [History] Montelukast [Singulair] 10 mg PO DAILY 01/20/18 [History] Pramlintide Acetate [Symlinpen 120] 120 mg SQ TIDWM 01/20/18 [History] Albuterol Neb [Proventil Neb] 2.5 mg IH Q4HR PRN 04/11/18 [History] Isosorbide MONOnitrate (24 HR) [Imdur] 30 mg PO DAILY 04/11/18 [History] Losartan/Hydrochlorothiazide [Hyzaar 100-12.5 Tablet] 1 tab PO DAILY 04/11/18 [ History] Magnesium Oxide [Magnesium] 400 mg PO DAILY 04/11/18 [History] Multivitamin [One Daily Multivitamin] 1 tab PO DAILY 04/11/18 [History] [place]-3/Dha/Epa/Fish Oil [Fish Oil 1,000 mg Softgel] 1 cap PO DAILY 04/11/18 [ History] Morphine Sulfate/Naltrexone [Embeda ER 80-3.2 mg Capsule] 1 cap PO BID 5 Days # 10 cap.er.po 04/17/18 [Rx] Collagenase Oint [Santyl] 1 appl TP DAILY 04/25/18 [History] Insulin Regular U-500 [HumuLIN R U-500] 25 unit SQ TID 04/25/18 [History] Metoprolol Succinate [Toprol Xl] 50 mg PO DAILY 04/25/18 [History] Omalizumab [XOLAIR (For Outpatient Infusion)] 300 mg SQ Q2W 04/25/18 [History] Tiotropium [Spiriva] 18 mcg IH DAILY 04/25/18 [History] 3 Allergy/AdvReac Type Severity Reaction Status Date / Time dapagliflozin [From [facility]] Allergy Hives Verified 01/20/18 19:08 naphazoline Allergy Hives Verified 01/20/18 19:08 cath DYE Allergy Hives Uncoded 01/20/18 19:08 All Systems PM: A 10-system review of systems was performed and is negative for pertinent findings except as documented above in the HPI. - Constitutional Constitutional: no chills, no fever(s), no night sweats - EENT Eyes: no change in vision, no discharge, no pain, no photophobia Ears: no ear discharge, no ear pain, no tinnitus Nose, mouth and throat: no dysphagia, no nasal discharge, no neck pain, no sore throat - Cardiovascular Cardiovascular ROS IM: no chest pain, no diaphoresis, no dyspnea, no lightheadedness, no palpitations, no syncope - Respiratory Respiratory: no cough, no dyspnea, no wheezing, no excessive phlegm production - Gastrointestinal Gastrointestinal: no abdominal pain, no diarrhea, no hematemesis, no hematochezia, no melena, no nausea, no vomiting - Musculoskeletal Musculoskeletal ROS IM: no numbness, no tingling - Integumentary Integumentary IM: erythema, non-healing lesions, no rash, no unusual bruising - Neurological Neurological ROS: no confusion, no convulsions, no focal weakness, no numbness, no tingling, no tremor(s) - Hematologic/Lymphatic Hematologic/Lymphatic: no easy bruising - Constitutional Vitals: Temp Pulse Resp BP Pulse Ox 99.5 F 83 18 100/76 97 04/25/18 12:14 04/25/18 15:13 04/25/18 15:13 04/25/18 15:13 04/25/18 15:13 General appearance: Present: A&O X 3 Exam: see above - Head Head exam: Present: atraumatic, normocephalic - Eye Eye exam: Present: PERRL, conjuntiva pink, sclera anicteric Pupils: Present: PERRL - Neck Neck exam general surgery: Present: supple, trachea midline. Absent: lymphadenopathy - Respiratory Respiratory exam: Present: CTAB. Absent: accessory muscle use, rales, rhonchi, wheezes - Cardiovascular Cardiovascular exam: Present: RRR, +S1, +S2. Absent: diastolic murmur, gallop, rubs, systolic murmur - GI/Abdominal GI/Abdominal exam: Present: normal bowel sounds, soft, no peritoneal signs. Absent: distended, tenderness - Extremities Exam Extremities exam: Present: warm, radial pulses palpable and symmetrical. Absent : calf tenderness, cyanotic, pedal edema - Neurological Exam Neurological exam: Present: CN II-XII intact, oriented X3, no focal deficits. Absent: pronater drift, facial droop, speech deficit - Skin Skin exam: Present: dry, erythema, intact Internal Med - H&P Results - Labs CBC & Chem 7: 04/25/18 13:52 04/25/18 13:52 - Assessment and plan (1) Wound of right ankle Current Visit: Yes Status: Acute Assessment and plan: 1 developed a charcot joint in his right foot in August 2017, developed an ulcer from his boot rubbing, and subsequently developed osteomyelitis -is recently admitted 04/17/2018 discharged on IV Ancef presented to his bakeshop cleaner for follow-up experiencing increased pain and swelling and purulent drainage. - Wound is open red with serous sanguinous drainage at this time surrounding tissue was red and tender to touch with edema no crepitus noted. Podiatry has been consulted he will be nothing by mouth after midnight for possible I&D in a.m. Previous cultures grow MSSA-we will obtain wound culture as well as blood cultures Vancomycin and Zosyn We will write for x-ray check for any gas, osteomylitis consult infectious disease Qualifiers: Encounter type: initial encounter Qualified Code(s): S91.001A - Unspecified open wound, right ankle, initial encounter (2) Osteomyelitis Current Visit: Yes Status: Acute Assessment and plan: 1 previous history of osteomyelitis -MRI 04/11/18 showed findings consistent with abscess, osteomyelitis, and severe tenosynovitis.-Status post I&D 04/12/18- was on IV Ancef for 6 week course We will check CRP and ECR Continue with vancomycin as well as Zosyn Consult podiatry consult infectious disease-day team to follow-up Qualifiers: Osteomyelitis type: chronic, with draining sinus Osteomyelitis location: foot Laterality: right Qualified Code(s): M86.471 - Chronic osteomyelitis with draining sinus, right ankle and foot (3) Hyponatremia Current Visit: No Status: Acute Assessment and plan: This appears to be chronic-sodium [id number] we will continue to monitor (4) DVT prophylaxis Current Visit: No Status: Acute Assessment and plan: Lovenox subcutaneous (5) Diabetes mellitus Current Visit: No Status: Chronic Assessment and plan: Accu-Cheks before meals at bedtime with sliding scale insulin Diabetic diet Qualifiers: Diabetes mellitus type: type 2 Diabetes mellitus long term care phlebotomist insulin use: with mcc use Diabetes mellitus complication status: with neurologic complications Diabetes mellitus complication detail: with polyneuropathy Qualified Code(s): E11.42 - Type 2 diabetes mellitus with diabetic polyneuropathy; Z79.4 - MCC (current) use of insulin - Time Spent With Patient Total time spent is greater than 50% in coordination of care (as documented) at patient's floor/unit and/or counseling patient:
[2018-04-25 16:56] LABS: C-Reactive Protein 97 mg/L (Less than 10)
--- NOTE | 2018-04-25 17:02 | Podiatry Consult Note ---
Date of Encounter: 04/25/18 Time of Encounter: 16:40 Assessment and Plan (1) Osteomyelitis Current visit: Yes Status: Acute Will plan for I&D of ankle tomorrow afternoon with NPO after midnight Dressing changes BID- Cleanse with hibiclens , rinse Apply adaptic, ABD, kerlix and DARSHAN for compression Elevate at all times NPO after midnight Continue to monitor vitals and lab work Blood and wound cultures have been obtained Consider ID consult for antibiotic management Patient has PICC in place Qualifiers: Osteomyelitis type: chronic, with draining sinus Osteomyelitis location: foot Laterality: right Qualified Code(s): M86.471 - Chronic osteomyelitis with draining sinus, right ankle and foot (2) Diabetes mellitus Current visit: No Status: Chronic Qualifiers: Diabetes mellitus type: type 2 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 Newsome is a 63 year old male past medical history of COPD, diabetes, hyperlipidemia, CAD, CABG, and history of osteomyelitis of his right ankle. He has had multiple hospitalizations for his wound to his right ankle with recent discharge with PICC and antibiotics on 04/17/2018. Patient was septic with abscess of ankle at that time. On his last admission patient was seen by infectious disease was found to have osteomyelitis of his right ankle causative organism MSSA. Patient discharged to [facility] with continued IV Ancef for 6 week course. He was seen per in clinic today and sent to ED for admission related to purulent drainage to wound. Patient also noted to have low- grade temperature 99.5. Will plan for I&D of ankle tomorrow afternoon. Patient will be NPO after midnight. Wound and blood cultures were obtained per internal medicine on admission. They will also continue Zosyn and add vancomycin. Past Med Surg Social Fam HX - Past Medical History Medical history: arthritis, asthma, atrial fibrillation, coronary artery disease , DVT, diabetes, GERD, hyperlipidemia, hypertension, myocardial infarction, other Additional medical history: BROCK. DJD Psychiatric history: anxiety, depression - Past Surgical History Surgical History: angioplasty/stent, appendectomy, cataract, cholecystectomy, coronary bypass (CABG), herniorrhaphy Additional surgical history: KNEE SURGERY , stent x1 - Social History Smoking Status: Former smoker Smokeless Tobacco Status: No Alcohol use: none Drug use: none - Family History Mother Living Status: Hx Family Cardiac Disorders: Yes (CHF) Hx Family Endocrine Disorder: Yes (DM) Father Living Status: Hx Family Cardiac Disorders: Yes ([place]) Medications and Allergies Amlodipine Besylate 10 mg PO DAILY 07/11/17 [History] Aspirin 81 mg PO DAILY 07/11/17 [History] Atorvastatin Calcium 40 mg PO HS 07/11/17 [History] Clopidogrel [Plavix] 75 mg PO DAILY 07/11/17 [History] EPINEPHrine [Epipen] 0.3 mg IM ONCE PRN 07/11/17 [History] Fluticasone/Salmeterol [Advair Hfa 230-21 Mcg Inhaler] 2 puff IH BID 07/11/17 [ History] Folic Acid 1 mg PO DAILY 07/11/17 [History] Gabapentin [Neurontin] 800 mg PO QID 07/11/17 [History] Nitroglycerin [Nitrostat] 0.4 mg SL Q5M PRN MDD [id number] call 911 07/11/17 [ History] Omeprazole [PriLOSEC] 20 mg PO DAILY 07/11/17 [History] Oxygen 2 l NS HS 07/11/17 [History] Potassium Chloride [Klor-Con 10] 10 meq PO DAILY 07/11/17 [History] Empagliflozin [Jardiance] 10 mg PO DAILY 01/20/18 [History] FLUoxetine HCl [Prozac] 60 mg PO DAILY 01/20/18 [History] Furosemide [Lasix] 80 mg PO BID 01/20/18 [History] Montelukast [Singulair] 10 mg PO DAILY 01/20/18 [History] Pramlintide Acetate [Symlinpen 120] 120 mg SQ TIDWM 01/20/18 [History] Albuterol Neb [Proventil Neb] 2.5 mg IH Q4HR PRN 04/11/18 [History] Isosorbide MONOnitrate (24 HR) [Imdur] 30 mg PO DAILY 04/11/18 [History] Losartan/Hydrochlorothiazide [Hyzaar 100-12.5 Tablet] 1 tab PO DAILY 04/11/18 [ History] Magnesium Oxide [Magnesium] 400 mg PO DAILY 04/11/18 [History] Multivitamin [One Daily Multivitamin] 1 tab PO DAILY 04/11/18 [History] [place]-3/Dha/Epa/Fish Oil [Fish Oil 1,000 mg Softgel] 1 cap PO DAILY 04/11/18 [ History] Morphine Sulfate/Naltrexone [Embeda ER 80-3.2 mg Capsule] 1 cap PO BID 5 Days # 10 cap.er.po 04/17/18 [Rx] Collagenase Oint [Santyl] 1 appl TP DAILY 04/25/18 [History] Insulin Regular U-500 [HumuLIN R U-500] 25 unit SQ TID 04/25/18 [History] Metoprolol Succinate [Toprol Xl] 50 mg PO DAILY 04/25/18 [History] Omalizumab [XOLAIR (For Outpatient Infusion)] 300 mg SQ Q2W 04/25/18 [History] Tiotropium [Spiriva] 18 mcg IH DAILY 04/25/18 [History] 3 Allergy/AdvReac Type Severity Reaction Status Date / Time dapagliflozin [From [facility]] Allergy Hives Verified 01/20/18 19:08 naphazoline Allergy Hives Verified 01/20/18 19:08 cath DYE Allergy Hives Uncoded 01/20/18 19:08 All Systems Reviewed: As per HPI Physical Exam - Constitutional Vitals: Temp Pulse Resp BP Pulse Ox 97.8 F 78 16 110/68 94 04/25/18 16:02 04/25/18 16:02 04/25/18 16:02 04/25/18 16:02 04/25/18 16:02 Exam: Well developed obese male in no acute distress Cap refill < 3 seconds to toes, warm toes to tibia, no calf pain with manual compression Absent sensation to light or moderate touch- LOPS Dressing was removed in clinic and wound assessed per as documented below: anterior ankle ulceration as well as ulceration to the lateral ankle. The lateral ankle ulceration does not have erythema but there is a copious amount of yellow tinged drainage with some purulent drainage mixed into it from the lateral ankle. The talus bone is also protruding from this wound and exposed. Results - Labs Result Diagrams: 04/26/18 Unknown 04/26/18 Unknown Labs: Abnormal lab results WBC 11.4 K/mcL (4.3-11.1) H 04/25/18 13:52 RBC 3.37 M/mcL (4.19-5.50) L 04/25/18 13:52 Hgb 9.7 g/dL (12.9-16.9) L 04/25/18 13:52 Hct 30.1 % (37.5-50.1) L 04/25/18 13:52 Plt Count 498 K/mcL (140-400) H 04/25/18 13:52 PT 13.3 Seconds (9.4-12.1) H 04/25/18 13:52 Sodium 131 mEq/L (136-145) L 04/25/18 13:52 Potassium 3.3 mEq/L (3.5-5.1) L 04/25/18 13:52 Chloride 89 mEq/L (98-107) L 04/25/18 13:52 Carbon Dioxide 36 mEq/L (23-29) H 04/25/18 13:52 Creatinine 0.58 mg/dL (0.70-1.30) L 04/25/18 13:52 Glucose 115 mg/dL (70-105) H 04/25/18 13:52 Calculated Osmolality 272 (280-300) L 04/25/18 13:52 C-Reactive Protein 97 mg/L (Less than 10) H 04/25/18 13:52 All other labs normal. Consult Discharge Plan - Plan Referrals: Myron Henderson [Primary Care Provider] -
[2018-04-25] MEDS ORDERED: Nitroglycerin 0.4 MG TAB.SUBL SL PRN (17:12)
[2018-04-25] MEDS ORDERED: Albuterol 2.5 MG/3 ML NEBULIZER IH PRN (17:12)
[2018-04-25] MEDS: Insulin LISPRO 300 UNITS/3 ML VIAL SQ SCH (17:42)
[2018-04-25] MEDS: *HR* HYDROcodone/Acet 5/325 mg TABLET PO PRN (17:42)
--- NOTE | 2018-04-25 18:19 | Anesthesia Evaluation PreOp ---
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 Any Significant HX Other Medical History: Diabetes Type II, Other (Morbid Obesity) Anesthesia History: No Prior Anesthetic Complications Alcohol Use: none Drug use: none Medications and Allergies Amlodipine Besylate 10 mg PO DAILY 07/11/17 [History] Aspirin 81 mg PO DAILY 07/11/17 [History] Atorvastatin Calcium 40 mg PO HS 07/11/17 [History] Clopidogrel [Plavix] 75 mg PO DAILY 07/11/17 [History] EPINEPHrine [Epipen] 0.3 mg IM ONCE PRN 07/11/17 [History] Fluticasone/Salmeterol [Advair Hfa 230-21 Mcg Inhaler] 2 puff IH BID 07/11/17 [ History] Folic Acid 1 mg PO DAILY 07/11/17 [History] Gabapentin [Neurontin] 800 mg PO QID 07/11/17 [History] Nitroglycerin [Nitrostat] 0.4 mg SL Q5M PRN MDD [id number] call 911 07/11/17 [ History] Omeprazole [PriLOSEC] 20 mg PO DAILY 07/11/17 [History] Oxygen 2 l NS HS 07/11/17 [History] Potassium Chloride [Klor-Con 10] 10 meq PO DAILY 07/11/17 [History] Empagliflozin [Jardiance] 10 mg PO DAILY 01/20/18 [History] FLUoxetine HCl [Prozac] 60 mg PO DAILY 01/20/18 [History] Furosemide [Lasix] 80 mg PO BID 01/20/18 [History] Montelukast [Singulair] 10 mg PO DAILY 01/20/18 [History] Pramlintide Acetate [Symlinpen 120] 120 mg SQ TIDWM 01/20/18 [History] Albuterol Neb [Proventil Neb] 2.5 mg IH Q4HR PRN 04/11/18 [History] Isosorbide MONOnitrate (24 HR) [Imdur] 30 mg PO DAILY 04/11/18 [History] Losartan/Hydrochlorothiazide [Hyzaar 100-12.5 Tablet] 1 tab PO DAILY 04/11/18 [ History] Magnesium Oxide [Magnesium] 400 mg PO DAILY 04/11/18 [History] Multivitamin [One Daily Multivitamin] 1 tab PO DAILY 04/11/18 [History] [place]-3/Dha/Epa/Fish Oil [Fish Oil 1,000 mg Softgel] 1 cap PO DAILY 04/11/18 [ History] Morphine Sulfate/Naltrexone [Embeda ER 80-3.2 mg Capsule] 1 cap PO BID 5 Days # 10 cap.er.po 04/17/18 [Rx] Collagenase Oint [Santyl] 1 appl TP DAILY 04/25/18 [History] Insulin Regular U-500 [HumuLIN R U-500] 25 unit SQ TID 04/25/18 [History] Metoprolol Succinate [Toprol Xl] 50 mg PO DAILY 04/25/18 [History] Omalizumab [XOLAIR (For Outpatient Infusion)] 300 mg SQ Q2W 04/25/18 [History] Tiotropium [Spiriva] 18 mcg IH DAILY 04/25/18 [History] 3 Allergy/AdvReac Type Severity Reaction Status Date / Time dapagliflozin [From [facility]] Allergy Hives Verified 01/20/18 19:08 naphazoline Allergy Hives Verified 01/20/18 19:08 cath DYE Allergy Hives Uncoded 01/20/18 19:08 - Meds/Allergy Pre-op Review Medications Reviewed: Yes Allergies Reviewed: Yes Beta Blockers on Current Med List: Yes (on Metoprolol) Anesthesia Results - Labs 04/25/18 13:52 04/25/18 13:52 Laboratory Tests 04/10/18 04/25/18 04/25/18 05:49 13:52 13:52 Hgb 9.7 L Hct 30.1 L Plt Count 498 H PT 13.3 H INR 1.2 APTT 31.1 Sodium Potassium BUN Creatinine Hemoglobin A1c 7.6 H 04/25/18 13:52 Hgb Hct Plt Count PT INR APTT Sodium 131 L Potassium 3.3 L BUN 9 Creatinine 0.58 L Hemoglobin A1c - Imaging EKG: report reviewed (SR) Additional studies: [place] 2017 EF 55-60%, no pulm htn Anesthesia Exam O2 Sat Height 1.68 m Height 1.68 m Weight 122 kg Weight 124.284 kg O2 Sat by Pulse Oximetry 94 O2 Sat by Pulse Oximetry 97 O2 Sat by Pulse Oximetry 95 Vital Signs Temp Pulse Resp BP Pulse Ox 99.5 F 83 18 112/61 95 04/25/18 12:14 04/25/18 12:14 04/25/18 12:14 04/25/18 12:14 04/25/18 12:14 Height: 5'6 Weight: 268 lbs NPO (# of Hours): MN Pain Scale: 1 - HEENT Pupil (Motor): Pupils equal, EOMI Mallampati: III Teeth: Edentulous Oral Opening: Less than or equal to 3 - CUTTER INSPECTOR LOC: Oriented CUTTER INSPECTOR Motor: Normal RUE, Normal LUE, Normal RLE, Normal LLE, Normal Face CUTTER INSPECTOR Sensory: Normal: RUE, LUE, LLE, Face, Deficit: RLE (paresthesia) - Cardiac Rhythm: Regular Murmur: None JVD: No Carotid Bruit: No - Pulmonary Breath Sounds: bilateral Clear Respiratory Effort: Symmetrical Anesthesia Assess/Plan ASA Score: 3 (CAD HTN COPDS DM BROCK [place]) Modified Bouse Scale for Level of Consciousness: Cooperative, oriented, and tranquil Anesthetic Plan: MAC Monitoring Plan: Standard Monitors Recovery Plan: Other (Discussed MAC, possible GA, agrees to proceed)
[2018-04-25] MEDS: Gabapentin 400 MG CAPSULE PO SCH (20:40)
[2018-04-25] MEDS: 0.9 % Sodium Chloride 1,000 ML IVC SCH (20:41)
[2018-04-25] MEDS: Budesonide/Formoterol 160/4.5 1 PUFF INH IH SCH (20:45)
[2018-04-25] MEDS ORDERED: Insulin LISPRO 300 UNITS/3 ML VIAL SQ SCH (21:00)
[2018-04-25] MEDS: NALTREXONE PO SCH (23:54)
[2018-04-25] MEDS: MORPHINE SULFATE PO SCH (23:54)
[2018-04-25] MEDS: Piperacillin/Tazobactam 3.375 GM in 0.9 % Sodium Chloride Mini Bag 100 ML IVPB SCH (23:56)
[2018-04-26] MEDS: *HR* HYDROcodone/Acet 5/325 mg TABLET PO PRN (05:07)
[2018-04-26] MEDS ORDERED: *HR* Enoxaparin 40 MG/0.4 ML SYRINGE SQ SCH (06:00)
[2018-04-26] MEDS: Insulin LISPRO 300 UNITS/3 ML VIAL SQ SCH ×3 (07:31→18:21)
[2018-04-26] MEDS: Piperacillin/Tazobactam 3.375 GM in 0.9 % Sodium Chloride Mini Bag 100 ML IVPB SCH ×2 (07:36→18:19)
[2018-04-26] MEDS: NALTREXONE PO SCH (07:37)
[2018-04-26] MEDS: MORPHINE SULFATE PO SCH (07:37)
[2018-04-26] MEDS: Gabapentin 400 MG CAPSULE PO SCH ×4 (07:37→22:21)
--- NOTE | 2018-04-26 07:43 | Podiatry Progress Note ---
Date of Encounter: 04/26/18 Time of Encounter: 07:00 - Assessment and Plan (1) Osteomyelitis Current Visit: Yes Status: Acute Admitted with worsening infection of the right lower extremity with heavy drainage. Denies feeling like he had a fever, chills, nausea, vomiting. Foot is warm to touch. Wound anterior and lateral ankle. Serosanguineous drainage expressed from the lateral ankle mixed with purulence. Bone is palpable through the wound. Patient is neuropathic a baseline with diminished protective sensation. Right foot/ankle Charcot with osteomyelitis Discussed with patient the infection present and that he is high risk for losing his leg and that his leg may not be able to be salvaged. Patient says that he understands. Nature of the procedures debridement and removal of bone, incision and drainage and washout with possible implantation of antibiotic beads and application of wound VAC possible discussed with patient at length this morning. No guarantees were made as to the outcome. He understood that this is going to take multiple procedures if his leg is even able to be salvaged. NPO. To OR today. Qualifiers: Osteomyelitis type: chronic, with draining sinus Osteomyelitis location: foot Laterality: right Qualified Code(s): M86.471 - Chronic osteomyelitis with draining sinus, right ankle and foot Objective - Vital Signs Vital Signs: Vital Signs Temp Pulse Resp BP Pulse Ox 04/26/18 06:34 98.1 F 78 16 105/56 98 04/26/18 04:00 98.4 F 76 14 102/59 98 04/26/18 00:29 15 102/61 97 04/25/18 23:10 97.5 F L 82 12 102/61 97 04/25/18 20:50 12 123/64 99 04/25/18 20:46 15 99 04/25/18 19:00 97.8 F 80 16 123/64 98 04/25/18 16:02 97.8 F 78 16 110/68 94 04/25/18 15:13 83 18 100/76 97 Intake and Output 04/25/18 04/25/18 04/26/18 15:59 23:59 07:59 Intake Total 2602 / 2602 100 / 100 Output Total 2075 / 2075 1575 / 1575 Balance 527 / 527 -1475 / -1475 Intake: IV Fluids 762 / 762 100 / 100 Zosyn 3.375 GM In 0.9 % Sodium 100 / 100 Chloride (Mini-Bag +) 100 ML @ 25 mls/hr IVPB Q8HR [facility] Rx#: [id number] KCl 20 MEQ Xylocaine 2 ML In 262 / 262 Dextrose 5% 250 ML @ 131 mls/hr IVPB ONCE ONE Rx#:[id number] Vancocin 2,000 MG In 0.9 % 500 / 500 Sodium Chloride 500 ML @ 250 mls/hr IVPB ONCE ONE Rx#: [id number] Oral 1840 / 1840 0 / 0 Output: Catheter 2074 / 5 1575 / 1575 Other: Percent of Meal Consumed 90% Weight 122 kg 121.8 kg Blood Glucose* 217 175 Patient Weight 04/26/18 23:59 Weight 121.8 kg - Lab Result Diagrams: 04/26/18 Unknown 04/26/18 Unknown Labs: Abnormal lab results WBC 11.4 K/mcL (4.3-11.1) H 04/25/18 13:52 RBC 3.37 M/mcL (4.19-5.50) L 04/25/18 13:52 Hgb 9.7 g/dL (12.9-16.9) L 04/25/18 13:52 Hct 30.1 % (37.5-50.1) L 04/25/18 13:52 Plt Count 498 K/mcL (140-400) H 04/25/18 13:52 ESR 121 mm/hr (0-10) H 04/25/18 13:52 PT 13.3 Seconds (9.4-12.1) H 04/25/18 13:52 Sodium 131 mEq/L (136-145) L 04/25/18 13:52 Potassium 3.3 mEq/L (3.5-5.1) L 04/25/18 13:52 Chloride 89 mEq/L (98-107) L 04/25/18 13:52 Carbon Dioxide 36 mEq/L (23-29) H 04/25/18 13:52 Creatinine 0.58 mg/dL (0.70-1.30) L 04/25/18 13:52 Glucose 115 mg/dL (70-105) H 04/25/18 13:52 POC Glucose 217 mg/dL (70-99) H 04/25/18 20:30 Calculated Osmolality 272 (280-300) L 04/25/18 13:52 C-Reactive Protein 97 mg/L (Less than 10) H 04/25/18 13:52 Microbiology, Last 48 Hours 04/25/18 16:40 Blood Culture - Preliminary Peripheral Venipuncture Culture is incubating and being continuously monitored for growth. Final report to follow. 04/25/18 16:40 Blood Culture - Preliminary Peripheral Venipuncture Culture is incubating and being continuously monitored for growth. Final report to follow. Consult Discharge Plan - Plan Referrals: Myron Henderson [Primary Care Provider] -
[2018-04-26] MEDS: Budesonide/Formoterol 160/4.5 1 PUFF INH IH SCH ×2 (08:06→20:10)
[2018-04-26] MEDS ORDERED: Magnesium Oxide 400 MG TABLET PO SCH (09:00)
[2018-04-26] MEDS ORDERED: Isosorbide MONOnitrate (24 HR) 30 MG TAB.ER.24H PO SCH (09:00)
[2018-04-26] MEDS ORDERED: Folic Acid 1 MG TABLET PO SCH (09:00)
[2018-04-26] MEDS ORDERED: Multivit/Ca/Min/Fe/FA 1 TAB TABLET PO SCH (09:00)
[2018-04-26] MEDS ORDERED: Aspirin 81 MG TAB.CHEW PO SCH (09:00)
[2018-04-26] MEDS ORDERED: NON-FORMULARY MEDICATION 1 EACH EACH (Omega-3/Dha/Epa/Fish Oil [Fish Oil 1,000 Mg Softgel] PO SCH (09:00)
[2018-04-26] MEDS ORDERED: FLUoxetine 20 MG CAPSULE PO SCH (09:00)
--- NOTE | 2018-04-26 09:31 | Internal Med Progress Note ---
Hospitalist Progress Note - Encounter Date of Encounter: 04/26/18 Time of Encounter: 09:31 - Subjective Interval History: Patient seen and examined at bedside Complains of foot pain otherwise waiting for pending surgery - Exam Vitals: Temp Pulse Resp BP Pulse Ox 98.1 F 78 16 105/56 98 04/26/18 06:34 04/26/18 06:34 04/26/18 08:44 04/26/18 06:34 04/26/18 08:44 Exam: General appearance: Present: A&O X 3 Exam - Head Head exam: Present: atraumatic, normocephalic - Eye Eye exam: Present: PERRL, conjuntiva pink, sclera anicteric Pupils: Present: PERRL - Neck Neck exam general surgery: Present: supple, trachea midline. Absent: lymphadenopathy - Respiratory Respiratory exam: Present: CTAB. Absent: accessory muscle use, rales, rhonchi, wheezes - Cardiovascular Cardiovascular exam: Present: RRR, +S1, +S2. Absent: diastolic murmur, gallop, rubs, systolic murmur - GI/Abdominal GI/Abdominal exam: Present: normal bowel sounds, soft, no peritoneal signs. Absent: distended, tenderness - Extremities Exam Extremities exam: Present: warm, radial pulses palpable and symmetrical. r foot with open wound to r ankle with serous sangious drainage Absent: calf tenderness, cyanotic, - Neurological Exam Neurological exam: Present: CN II-XII intact, oriented X3, no focal deficits. 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 - Wound is open red with serous sanguinous drainage at this time surrounding tissue was red and tender to touch with edema no crepitus noted. Podiatry has been consulted he will be nothing by mouth after midnight for possible I&D later today Previous cultures grow MSSA-we will obtain wound culture as well as blood cultures Vancomycin and Zosyn xray to r ankle and foot - no changes from previous consult infectious disease (2) Osteomyelitis Current Visit: Yes Status: Acute Assessment and Plan: 1 previous history of osteomyelitis -MRI 04/11/18 showed findings consistent with abscess, osteomyelitis, and severe tenosynovitis.-Status post I&D 04/12/18- was on IV Ancef for 6 week course We will check CRP and ECR Continue with vancomycin as well as Zosyn Consult podiatry consult infectious disease-day team to follow-up (3) Hyponatremia Current Visit: No Status: Acute Assessment and Plan: This appears to be chronic-sodium [id number] 134 today (4) DVT prophylaxis Current Visit: No Status: Acute Assessment and Plan: Lovenox subcutaneous (5) Diabetes mellitus Current Visit: No Status: Chronic Assessment and Plan: Accu-Cheks before meals at bedtime with sliding scale insulin Diabetic diet (6) BROCK (obstructive sleep apnea) Current Visit: Yes Status: Acute Assessment and Plan: cont CPAP (7) Asthma Current Visit: Yes Status: Acute Assessment and Plan: stable at this time cont bronchodilators and oxygen as needed (8) Urinary retention Current Visit: No Status: Acute Assessment and Plan: has had shah since last discharge- cont follow have follow up with urology at discharge - Time Spent with Patient Total time spent is greater than 50% in coordination of care (as documented) at patient's floor/unit and/or counseling patient: Internal Medicine: Result - Labs CBC & Chem 7: 04/26/18 Unknown 04/26/18 Unknown - ABG Interpretation ABG results: PT/INR, D-dimer PT 13.3 Seconds (9.4-12.1) H 04/25/18 13:52 - Impressions Impressions Foot X-Ray 04/25/18 16:04 IMPRESSION: Evidence of neuropathic joint. Findings are similar to the prior radiograph 04/09/2018. D/ / Melva Singh Cha, MD / Melva Singh Cha, MD Interpreting Provider: Melva Singh Cha, MD Ankle X-Ray 04/25/18 18:01 IMPRESSION: Evidence of neuropathic joint. Findings are similar to the prior radiograph 04/09/2018. D/ / Melva Singh Cha, MD / Melva Singh Cha, MD Interpreting Provider: Melva Singh Cha, MD Consult Discharge Plan - Plan Referrals: Myron Henderson [Primary Care Provider] - (1) Wound of right ankle Qualifiers: Encounter type: initial encounter Qualified Code(s): S91.001A - Unspecified open wound, right ankle, initial encounter (2) Osteomyelitis Qualifiers: Osteomyelitis type: chronic, with draining sinus Osteomyelitis location: foot Laterality: right Qualified Code(s): M86.471 - Chronic osteomyelitis with draining sinus, right ankle and foot (5) Diabetes mellitus Qualifiers: Diabetes mellitus type: type 2 Diabetes mellitus buttermaker helper insulin use: with buttermaker helper use Diabetes mellitus complication status: with neurologic complications Diabetes mellitus complication detail: with polyneuropathy Qualified Code(s): E11.42 - Type 2 diabetes mellitus with diabetic polyneuropathy; Z79.4 - alf (current) use of insulin (7) Asthma Qualifiers: Asthma severity: unspecified severity Asthma persistence: unspecified Asthma complication type: unspecified Qualified Code(s): J45.909 - Unspecified asthma, uncomplicated
[2018-04-26 09:52] LABS: Basophils # 0.1 K/mcL (0.0-0.2); Eosinophils # 0.4 K/mcL (0.0-0.6); Eosinophils % 3.8 %; Hematocrit 28.5 % (37.5-50.1); Immature Granulocytes % 0.9 % (0-4); Lymphocytes # 1.2 K/mcL (0.6-4.6); Lymphocytes % 11.5 %; Mean Corpuscular HGB Conc 31.6 g/dL (31.6-35.5); Mean Corpuscular Hemoglobin 28.7 pg (28.0-33.3); Mean Corpuscular Volume 90.8 fL (83.0-100.0); Mean Platelet Volume 10.2 fL (9.4-12.4); Monocytes # 0.7 K/mcL (0.0-1.3); Monocytes % 6.5 %; Neutrophils # 7.9 K/mcL (1.6-8.9); Platelet Count 453 K/mcL (140-400); Red Blood Count 3.14 M/mcL (4.19-5.50); Red Cell Distribution Width 14.3 % (11.5-14.5); Segmented Neutrophils % 76.3 %
[2018-04-26] MEDS ORDERED: Tiotropium 18 MCG inhalation IH SCH (10:00)
[2018-04-26 10:10] LABS: BUN/Creatinine Ratio 14 (6-26); Blood Urea Nitrogen 8 mg/dL (8-23); Calcium 8.4 mg/dL (8.6-10.3); Carbon Dioxide 31 mEq/L (23-29); Chloride 96 mEq/L (98-107); Glucose 189 mg/dL (70-105); Osmolality,Calculated 281 (280-300); Potassium 3.8 mEq/L (3.5-5.1); Sodium 134 mEq/L (136-145); eGFR For Non-African Americans > 60 (> 60)
--- NOTE | 2018-04-26 10:48 | Infectious Disease Consult ---
Date of Encounter: 04/26/18 Time of Encounter: 10:25 Assessment and Plan (1) Leukocytosis Status: Resolved Assessment and plan: White blood cell count mildly elevated 11.4 thousand on admission. Likely secondary to right ankle surgical wound infection. Resolved. Continue to trend. Qualifiers: Leukocytosis type: bandemia Qualified Code(s): D72.825 - Bandemia (2) Wound of right ankle Status: Acute Assessment and plan: Location: Right ankle. Secondary to recent surgical procedure. According to the notes, there appeared to be purulent drainage and concerns for possible abscess underlying the surgical site. Right foot and ankle x-rays were negative for acute findings. ESR elevated at 121 and CRP 97. Blood cultures obtained 2 sets 04/25/18 are pending. Wound culture is pending. Podiatry's been consulted. Planning to take the patient to the operating room later today for repeat I&D. We will request repeat cultures. Wound care and activity restrictions per the podiatry team. Continue vancomycin IV. Pharmacy to dose. Goal trough approximately 15. Continue Zosyn 3.375 g IV every 8 hours for now. Duration of treatment depends on the clinical pictures. Await Intra-Op findings and cultures and de-escalate antibiotics if/when able. Monitor renal function and for drug toxicity and dose adjust antibiotics. Qualifiers: Encounter type: initial encounter Qualified Code(s): S91.001A - Unspecified open wound, right ankle, initial encounter (3) Abscess of right foot Status: Acute Assessment and plan: Location: Right ankle. Causative organism: MSSA. Status post I&D 04/12/18. Intraoperative cultures were positive for MSSA. Concern for recurrence based on clinical picture. Podiatry consult. Planning to take the patient back to the operating room later today. Continue antibiotics as above for now. (4) Osteomyelitis Status: Acute Assessment and plan: Location: Right ankle. Causative organism: MSSA. Status post I&D 04/12/18. Intra-Op cultures were positive for MSSA. Pathology was positive for osteoarthritis. Discharged with plans to complete 6 weeks of IV Ancef, the patient had worsening of the clinical status. Podiatry consult and plan take patient to the operating room later today. Continue antibiotics as above for now. Qualifiers: Osteomyelitis type: chronic, with draining sinus Osteomyelitis location: foot Laterality: right Qualified Code(s): M86.471 - Chronic osteomyelitis with draining sinus, right ankle and foot (5) Bacteremia Status: Acute Assessment and plan: Causative organism: MSSA. Diagnosed on last hospital visit with blood cultures 2 out of 2 sets drawn 04/09/18. Repeat blood cultures drawn 04/11/18 were negative 2 sets. TTE was limited, so a [place] was performed and was negative for endocarditis. Repeat blood cultures drawn 04/25/18 are pending 2 sets. No evidence of recurrence of bacteremia noted on exam. Await repeat cultures. Continue antibiotics as above for now. (6) Urinary retention Status: Acute Assessment and plan: Has had a chronic indwelling Christensen catheter since his last hospitalization. Recommend follow-up with urology as an outpatient. (7) Asthma Status: Chronic Qualifiers: Asthma severity: unspecified severity Asthma persistence: unspecified Asthma complication type: uncomplicated Qualified Code(s): J45.909 - Unspecified asthma, uncomplicated (8) CAD (coronary artery disease) Status: Chronic Qualifiers: Coronary Disease-Associated Artery/Lesion type: [place] artery [place] vs. transplanted heart: [place] heart Associated angina: without angina Qualified Code(s): I25.10 - Atherosclerotic heart disease of [place] coronary artery without angina pectoris (9) Charcot ankle Status: Chronic Qualifiers: Laterality: right Qualified Code(s): M14.671 - Charcot's joint, right ankle and foot (10) Diabetes mellitus Status: Chronic Assessment and plan: Recommend aggressive glucose monitoring and control to promote wound healing and prevent reinfection. Management per the primary team. Qualifiers: Diabetes mellitus type: type 2 Diabetes mellitus jail insulin use: with termite treater use Diabetes mellitus complication status: with neurologic complications Diabetes mellitus complication detail: with polyneuropathy Qualified Code(s): E11.42 - Type 2 diabetes mellitus with diabetic polyneuropathy; Z79.4 - correction (current) use of insulin (11) Morbid obesity Status: Chronic (12) BROCK (obstructive sleep apnea) Status: Chronic Infectious Disease HPI - Data of Consult Patient: known to practice within the last 3 years Consult date: 04/26/18 Requesting Physician: Yuniel Hinds DO Primary Care Provider: Caio Henderson - Consult Narrative Reason for consult: Osteomyelitis History of present illness: Mr. Newsome is a 63 year old male with a past medical history of COPD, diabetes, hyperlipidemia, CAD, CABG, depression, Charcot arthropathy, and right foot infection status post IV antibiotic therapy with recent history of MSSA bacteremia and osteomyelitis of the right ankle currently on IV antibiotics. The patient was admitted to the hospital 04/25/18 for osteo-myelitis of the right ankle. We are consulted 04/26/18 for antibiotic management for right ankle osteoarthritis. Briefly, the patient is a 63-year-old male, well-known to the infectious disease service as we have been consulted on his case multiple times in the past , most recently for osteomyelitis of the right ankle and bacteremia earlier this month. The patient had presented to the emergency department with complaints of generalized weakness and falling at home. The patient was noticed to have sepsis with bacteremia and acute osteomyelitis, abscess, and severe tenosynovitis as evidenced on MRI. Fitness Coordinator consult it and took the patient to the operating room on 04/12/18 and performed an I&D. Intraoperative cultures were positive for MSSA. Pathology was positive for osteomyelitis. His antibiotics were the escalated to IV Ancef and he was discharged to a local extended care facility to complete 6 weeks of IV antibiotics. Apparently, the patient was evaluated in wound care yesterday and had concerns for worsening infection due to purulent drainage from the wound, so he was advised to come to the ER for admission. Upon arrival to the ER, the patient was afebrile and hemodynamically stable. Labs revealed a mildly elevated WBC at 11.4 thousand. Blood cultures were drawn x 2 sets and are pending. He was given IV Zosyn per Dr. Harrington's request and admitted to the hospital for further evaluation. Since admission, the patient has remained afebrile and hemodynamically stable. His white blood cell count has normalized. He did have additional labs checked that revealed an ESR of 121 with a CRP of 97. Wound culture was obtained and is pending. He had a right foot and ankle x-ray that showed findings consistent with neuropathic joint, but otherwise findings were similar to previous imaging back on 04/09/18. Podiatry has evaluated the patient and is planning to take him to the operating room later today. Today, he is on Vanco and Zosyn. We have been asked to evaluate and make further recommendations. During my exam today, the patient endorses a history as stated above. He states he has been in his usual state of health and is actually feeling a little bit better recently. He denies any fevers or chills or rigors. Denies any headache or neck pain. Denies any congestion, earache, or sore throat. He denies any chest pain or shortness of breath. He denies a cough. He denies any nausea or vomiting or diarrhea. Denies abdominal pain, urinary complaints, appetite changes. He does have a chronic indwelling Christensen catheter that has been there since his previous admission. He reported increased pain at the site of the ulceration yesterday, but states otherwise his foot had been doing well. He denies any oral thrush or any skin lesions. The patient currently resides at a local extended care facility. He denies tobacco, alcohol, illicit drug use. He denies any recent travel outside the [facility]. He denies any chronic infectious diseases. CC: Yuniel Hinds, DO Past Med Surg Social Fam HX - Past Medical History Attestation: Yes The following information was validated with the patient. Source: patient, old records reviewed, nursing notes reviewed Medical history: arthritis, asthma, atrial fibrillation, coronary artery disease , DVT, diabetes, GERD, hyperlipidemia, hypertension, myocardial infarction, other Additional medical history: BROCK. DJD Psychiatric history: anxiety, depression - Past Surgical History Surgical History: angioplasty/stent, appendectomy, cataract, cholecystectomy, coronary bypass (CABG), herniorrhaphy Additional surgical history: KNEE SURGERY , stent x1 - Social History Smoking Status: Former smoker Smokeless Tobacco Status: No Alcohol use: none Drug use: none Occupational status: retired Current living situation: PENDING SALE TO [facility] Activity Level: Uses cane/walker Recent Out of Country Travel Within the Last 8 Weeks: No Exposure or Possible Exposure to Illness During Travel: No - Family History Mother Living Status: Hx Family Cardiac Disorders: Yes (CHF) Hx Family Endocrine Disorder: Yes (DM) Father Living Status: Hx Family Cardiac Disorders: Yes ([place]) Infectious Disease-CN:Meds Amlodipine Besylate 10 mg PO DAILY 07/11/17 [History] Aspirin 81 mg PO DAILY 07/11/17 [History] Atorvastatin Calcium 40 mg PO HS 07/11/17 [History] Clopidogrel [Plavix] 75 mg PO DAILY 07/11/17 [History] EPINEPHrine [Epipen] 0.3 mg IM ONCE PRN 07/11/17 [History] Fluticasone/Salmeterol [Advair Hfa 230-21 Mcg Inhaler] 2 puff IH BID 07/11/17 [ History] Folic Acid 1 mg PO DAILY 07/11/17 [History] Gabapentin [Neurontin] 800 mg PO QID 07/11/17 [History] Nitroglycerin [Nitrostat] 0.4 mg SL Q5M PRN MDD [id number] call 911 07/11/17 [ History] Omeprazole [PriLOSEC] 20 mg PO DAILY 07/11/17 [History] Oxygen 2 l NS HS 07/11/17 [History] Potassium Chloride [Klor-Con 10] 10 meq PO DAILY 07/11/17 [History] Empagliflozin [Jardiance] 10 mg PO DAILY 01/20/18 [History] FLUoxetine HCl [Prozac] 60 mg PO DAILY 01/20/18 [History] Furosemide [Lasix] 80 mg PO BID 01/20/18 [History] Montelukast [Singulair] 10 mg PO DAILY 01/20/18 [History] Pramlintide Acetate [Symlinpen 120] 120 mg SQ TIDWM 01/20/18 [History] Albuterol Neb [Proventil Neb] 2.5 mg IH Q4HR PRN 04/11/18 [History] Isosorbide MONOnitrate (24 HR) [Imdur] 30 mg PO DAILY 04/11/18 [History] Losartan/Hydrochlorothiazide [Hyzaar 100-12.5 Tablet] 1 tab PO DAILY 04/11/18 [ History] Magnesium Oxide [Magnesium] 400 mg PO DAILY 04/11/18 [History] Multivitamin [One Daily Multivitamin] 1 tab PO DAILY 04/11/18 [History] Victoria-3/Dha/Epa/Fish Oil [Fish Oil 1,000 mg Softgel] 1 cap PO DAILY 04/11/18 [ History] Morphine Sulfate/Naltrexone [Embeda ER 80-3.2 mg Capsule] 1 cap PO BID 5 Days # 10 cap.er.po 04/17/18 [Rx] Collagenase Oint [Santyl] 1 appl TP DAILY 04/25/18 [History] Insulin Regular U-500 [HumuLIN R U-500] 25 unit SQ TID 04/25/18 [History] Metoprolol Succinate [Toprol Xl] 50 mg PO DAILY 04/25/18 [History] Omalizumab [XOLAIR (For Outpatient Infusion)] 300 mg SQ Q2W 04/25/18 [History] Tiotropium [Spiriva] 18 mcg IH DAILY 04/25/18 [History] 3 Allergy/AdvReac Type Severity Reaction Status Date / Time dapagliflozin [From [facility]] Allergy Hives Verified 01/20/18 19:08 naphazoline Allergy Hives Verified 01/20/18 19:08 cath DYE Allergy Hives Uncoded 01/20/18 19:08 All systems: reviewed and no additional remarkable complaints except as stated Exam - Constitutional Vitals: Temp Pulse Resp BP Pulse Ox 98.1 F 78 16 105/56 98 04/26/18 06:34 04/26/18 06:34 04/26/18 08:44 04/26/18 06:34 04/26/18 08:44 General appearance: cooperative, morbidly obese, no acute distress - Head Head exam: Present: atraumatic, normal inspection, normocephalic - Eye Eye exam: Present: EOMI, normal appearance, PERRL Pupils: Present: normal accommodation - ENT ENT exam: Present: mucous membranes moist - Neck Neck exam: Present: normal inspection - Respiratory Respiratory exam: Present: CTAB. Absent: rales, respiratory distress, rhonchi, wheezes - Cardiovascular Cardiovascular exam: Present: irregular rhythm. Absent: tachycardia - GI/Abdominal GI/Abdominal exam: Present: distended (obese), normal bowel sounds, soft. Absent: tenderness Additional comments: Christensen catheter noted be draining clear yellow urine. - Extremities Exam Extremities exam: Present: tenderness (Right foot and ankle). Absent: normal inspection (Venous stasis dermatitis noted to the bilateral lower extremities), pedal edema Additional comments: Dressing noted to the right foot is clean, dry, and intact. - Neurological Exam Neurological exam: Present: alert, oriented X3, no focal deficits - Psychiatric Psychiatric exam: Present: normal affect, normal mood - Skin Skin exam: Present: dry, intact, normal color, warm Infectious Disease CN: Results - Labs CBC & Chem 7: 04/27/18 07:34 04/27/18 03:25 Cultures: Cultures 04/25/18 16:40 Blood Culture - Preliminary Peripheral Venipuncture Culture is incubating and being continuously monitored for growth. Final report to follow. 04/25/18 16:40 Blood Culture - Preliminary Peripheral Venipuncture Culture is incubating and being continuously monitored for growth. Final report to follow. Consult Discharge Plan - Plan Referrals: Myron Henderson [Primary Care Provider] - - Attending Attestation I examined this patient and my medical decision-making was reviewed with the Resident Physician. I agree with the documented findings, disposition and treatment plan as described except to the extent set forth below. This is an addendum to original report dictated by Natasha Hamilton CNP. Please refer to Natasha's note for full detail. Patient is a 63-year-old gentleman well-known to or service who had a right ankle wound infection with MSSA was on IV antibiotics for osteomyelitis of the right ankle. Patient was taken to surgery and start Pitocin thousand 18 where he had I&D done and cultures were positive for MSSA. Patient was discharged on IV Ancef with plan to treat for 6 weeks. Patient came back with worsening drainage. We were asked to evaluate the patient and make further recommendations. At this point ESR is elevated at 121 CRP is 97 cultures were obtained and are pending podiatry has been consulted on a believe the patient going to the OR at 5 PM later today for I&D patient was brought in spectrum to vancomycin and Zosyn. Kidney function is doing fine. Agree with current antibiotics until Intra-Op cultures return and then we will tailor antibiotics accordingly. Await to see what the Intra-Op findings are. We will continue to follow closely. Monitor labs and for drug toxicity. Goal vancomycin trough of 15.
[2018-04-26] MEDS ORDERED: Ondansetron 4 MG/2 ML VIAL ONE (14:11)
[2018-04-26] MEDS ORDERED: *HR* FentaNYL (PF) 100 MCG/2 ML VIAL ONE (14:11)
[2018-04-26] MEDS ORDERED: Dexamethasone 4 MG/ML VIAL ONE (14:11)
[2018-04-26] MEDS ORDERED: Lidocaine -MPF 2% 2 ML VIAL ONE (14:11)
[2018-04-26] MEDS ORDERED: *HR* Midazolam HCl 2 MG/2 ML VIAL ONE (14:11)
[2018-04-26] MEDS ORDERED: *HR* Propofol 200 MG/20 ML VIAL IVP ONE ×2 (14:12→15:22)
[2018-04-26] MEDS ORDERED: Bupivacaine-MPF 0.25% 10 ML VIAL ONE (14:23)
[2018-04-26] MEDS ORDERED: Lidocaine 1% 20 ML MDV ONE (14:24)
[2018-04-26] MEDS ORDERED: Vancomycin 1,000 MG VIAL ONE ×2 (14:32→14:33)
[2018-04-26] MEDS ORDERED: Gentamicin 80 MG/2 ML VIAL ONE ×2 (14:33→14:36)
[2018-04-26] MEDS ORDERED: Vancomycin 1,000 MG, 0.9 % Sodium Chloride 1,000 ML IR ONE ×2 (14:45→16:29)
[2018-04-26] MEDS ORDERED: 0.9 % Sodium Chloride 1,000 ML IVC SCH (16:29)
[2018-04-26] MEDS ORDERED: *HR* Dextrose 50 % in Water (Syg) 50 ML SYRINGE IVP PRN (16:29)
[2018-04-26] MEDS ORDERED: Nitroglycerin 0.4 MG TAB.SUBL SL PRN (16:29)
[2018-04-26] MEDS ORDERED: Dextrose Gel 15 GM/37.5 ML TUBE PO PRN ×2 (16:29)
[2018-04-26] MEDS ORDERED: D5% in Water 1,000 ML IVC PRN (16:29)
[2018-04-26] MEDS ORDERED: Naloxone 0.4 MG/ML INJ IVP PRN (16:29)
--- NOTE | 2018-04-26 17:22 | Operative Note ---
Date of procedure: 04/26/18 Pre-op diagnosis: Charcot right foot/ankle, diabetic infection, osteomyelitis Post-op diagnosis: same Procedure: right talectomy right ankle/foot incision and drainage Implants: antibiotic beads Complications: none Anesthesia: MAC Surgeon: Segundo Harrington Was there an field administrative assistant present: No Estimated blood loss (cc): 200 Specimen: right talus micro and path Condition: stable Disposition: PACU Procedure in Detail: Indications: 63-year-old diabetic male admitted with worsening right foot and ankle infection. Patient has history of Charcot. Patient had purulent drainage mixed in with serosanguineous drainage coming from the right lateral ankle. Nature of the above procedures, risks versus benefits potential complications consequences of his condition discussed at length. No guarantees made as to the outcome and it was explained to him that he has high risk for limb loss and that this would likely be a staged procedure and he is going to require more surgery in the future if the ligament is even able to be salvaged. All of his questions were answered and the informed consent was signed. The patient was taken from the preoperative holding area and operating room placed on operating room table in the supine position. The patient is neuropathic and did not require local anesthetic. A tourniquet was applied but not inflated during the entire procedure. The following procedures then began Right ankle incision and drainage. Attention was directed to the lateral aspect of the patient's right ankle where an ulceration was present. Proximal and distal to this ulceration in #15 blade was used to incise full-thickness down to the level of the bone. There was serosanguineous drainage expressed with some purulence mixed in with it. This appeared to be coming from the ankle and subtalar joints. The pulse lavage with vancomycin was utilized to irrigate the area. Suction was utilized to suction drainage. Upon reinspection no further purulence could be expressed. Purulent drainage did not appear to be tracking along the peroneal tendons. The patient had severe collapse and loss of the talus bone due to his condition and the decision was made to proceed with the next procedure. Right talectomy. Attention was directed to the lateral aspect of the patient's foot. The incision and drainage incision and the talus what portion of the talus was left was identified and was removed by freeing it from its soft tissue attachments. Some Surgicel was applied into the defect as was antibiotic beads which had vancomycin powder and gentamicin mixed in them. This talus bone excised was sent to pathology and microbiology. Adequate hemostasis was present at the conclusion and sterile bandage was applied consisting of 4 x 4 gauze and ABDs Kerlix and an Josh wrap. The patient was also placed in an adequately padded posterior splint given strict instructions for nonweightbearing to the right lower extremity. He will return to the floor where he will continue IV antibiotics.
[2018-04-26] MEDS ORDERED: Albuterol 2.5 MG/3 ML NEBULIZER IH PRN (20:00)
[2018-04-26] MEDS ORDERED: Insulin LISPRO 300 UNITS/3 ML VIAL SQ SCH (21:00)
[2018-04-26] MEDS: Patient Taking Own Medication 1 EACH PO SCH (22:24)
[2018-04-27] MEDS: Piperacillin/Tazobactam 3.375 GM in 0.9 % Sodium Chloride Mini Bag 100 ML IVPB SCH ×3 (01:24→16:35)
[2018-04-27 03:38] LABS: Basophils % 0.3 %; Eosinophils % 0.1 %; Hematocrit 23.6 % (37.5-50.1); Hemoglobin 7.5 g/dL (12.9-16.9); Immature Granulocytes % 0.9 % (0-4); Mean Corpuscular HGB Conc 31.8 g/dL (31.6-35.5); Mean Corpuscular Hemoglobin 28.8 pg (28.0-33.3); Mean Corpuscular Volume 90.8 fL (83.0-100.0); Mean Platelet Volume 9.8 fL (9.4-12.4); Monocytes # 0.4 K/mcL (0.0-1.3); Monocytes % 3.1 %; Neutrophils # 11.1 K/mcL (1.6-8.9); Platelet Count 422 K/mcL (140-400); Segmented Neutrophils % 87.6 %
[2018-04-27 03:56] LABS: BUN/Creatinine Ratio 17 (6-26); Blood Urea Nitrogen 9 mg/dL (8-23); Calcium 8.2 mg/dL (8.6-10.3); Carbon Dioxide 27 mEq/L (23-29); Chloride 98 mEq/L (98-107); Glucose 190 mg/dL (70-105); Osmolality,Calculated 274 (280-300); Potassium 3.8 mEq/L (3.5-5.1); Sodium 130 mEq/L (136-145); eGFR For Non-African Americans > 60 (> 60)
[2018-04-27] MEDS: *HR* Enoxaparin 40 MG/0.4 ML SYRINGE SQ SCH (06:36)
[2018-04-27 07:41] LABS: Basophils % 0.3 %; Eosinophils % 0.2 %; Hematocrit 23.1 % (37.5-50.1); Immature Granulocytes % 1.1 % (0-4); Lymphocytes # 1.2 K/mcL (0.6-4.6); Lymphocytes % 9.6 %; Mean Corpuscular HGB Conc 31.6 g/dL (31.6-35.5); Mean Corpuscular Hemoglobin 28.9 pg (28.0-33.3); Mean Corpuscular Volume 91.3 fL (83.0-100.0); Monocytes # 0.6 K/mcL (0.0-1.3); Monocytes % 4.9 %; Neutrophils # 10.8 K/mcL (1.6-8.9); Platelet Count 409 K/mcL (140-400); Red Blood Count 2.53 M/mcL (4.19-5.50); Segmented Neutrophils % 83.9 %
[2018-04-27 07:43] LABS: Hemoglobin 7.3 g/dL (12.9-16.9)
[2018-04-27] MEDS: Multivit/Ca/Min/Fe/FA 1 TAB TABLET PO SCH (09:11)
[2018-04-27] MEDS: Gabapentin 400 MG CAPSULE PO SCH ×4 (09:11→19:43)
[2018-04-27] MEDS: Magnesium Oxide 400 MG TABLET PO SCH (09:12)
[2018-04-27] MEDS: FLUoxetine 20 MG CAPSULE PO SCH (09:12)
[2018-04-27] MEDS: Aspirin 81 MG TAB.CHEW PO SCH (09:12)
[2018-04-27] MEDS: Isosorbide MONOnitrate (24 HR) 30 MG TAB.ER.24H PO SCH (09:12)
[2018-04-27] MEDS: Folic Acid 1 MG TABLET PO SCH (09:12)
[2018-04-27] MEDS: Patient Taking Own Medication 1 EACH PO SCH ×2 (09:13→19:43)
[2018-04-27] MEDS: Insulin LISPRO 300 UNITS/3 ML VIAL SQ SCH ×4 (09:13→19:58)
[2018-04-27] MEDS: Budesonide/Formoterol 160/4.5 1 PUFF INH IH SCH ×2 (10:43→20:04)
[2018-04-27] MEDS: Tiotropium 18 MCG inhalation IH SCH (10:44)
[2018-04-27] MEDS: *HR* HYDROcodone/Acet 5/325 mg TABLET PO PRN ×2 (11:53→19:44)
[2018-04-27] MEDS: Ondansetron 4 MG/2 ML VIAL IVP PRN (13:57)
[2018-04-27] MEDS: *HR* OxyCODONE Immed Rel 5 MG TABLET PO PRN (13:58)
--- NOTE | 2018-04-27 14:20 | Infectious Disease Progress No ---
Date of Encounter: 04/27/18 Time of Encounter: 10:45 - Assessment and Plan (1) Leukocytosis Current Visit: No Status: Resolved White blood cell count mildly elevated 11.4 thousand on admission. Likely secondary to right ankle surgical wound infection. White blood cell count elevated today, likely reactive from recent surgery. Continue to trend. Qualifiers: Leukocytosis type: bandemia Qualified Code(s): D72.825 - Bandemia (2) Wound of right ankle Current Visit: Yes Status: Acute Location: Right ankle. Secondary to recent surgical procedure. According to the notes, there appeared to be purulent drainage and concerns for possible abscess underlying the surgical site. Right foot and ankle x-rays were negative for acute findings. ESR elevated at 121 and CRP 97. Blood cultures obtained 2 sets 04/25/18 are no growth to date. Wound culture is pending. Podiatry consulted and following. Status post I & D with right talectomy. Operative note reviewed. Purulence noted intra-op. Intra-op cultures and pathology are pending. Wound care and activity restrictions per the podiatry team. Continue vancomycin IV. Pharmacy to dose. Goal trough approximately 15. Continue Zosyn 3.375 g IV every 8 hours for now. Duration of treatment depends on the clinical pictures. Await Intra-Op findings and cultures and de-escalate antibiotics if/when able. Monitor renal function and for drug toxicity and dose adjust antibiotics. Qualifiers: Encounter type: initial encounter Qualified Code(s): S91.001A - Unspecified open wound, right ankle, initial encounter (3) Abscess of right foot Current Visit: No Status: Acute Location: Right ankle. Causative organism: MSSA. Status post I&D 04/12/18. Intraoperative cultures were positive for MSSA. Podiatry consult. Status post I & D 04/26/18. Continue antibiotics as above for now. (4) Osteomyelitis Current Visit: Yes Status: Acute Location: Right ankle. Causative organism: MSSA. Status post I&D 04/12/18. Intra-Op cultures were positive for MSSA. Pathology was positive for osteoarthritis. Discharged with plans to complete 6 weeks of IV Ancef, the patient had worsening of the clinical status. Podiatry consulted. Status post I & D with talectomy 04/26/[address] Harrington. Intra-op culture and pathology are pending. Continue antibiotics as above for now. Qualifiers: Osteomyelitis type: chronic, with draining sinus Osteomyelitis location: foot Laterality: right Qualified Code(s): M86.471 - Chronic osteomyelitis with draining sinus, right ankle and foot (5) Bacteremia Current Visit: No Status: Acute Causative organism: MSSA. Diagnosed on last hospital visit with blood cultures 2 out of 2 sets drawn 04/09/18. Repeat blood cultures drawn 04/11/18 were negative 2 sets. TTE was limited, so a ISRAEL was performed and was negative for endocarditis. Repeat blood cultures drawn 04/25/18 are NGTD 2 sets. No evidence of recurrence of bacteremia noted on exam. Await repeat cultures. Continue antibiotics as above for now. (6) Urinary retention Current Visit: No Status: Acute Has had a chronic indwelling Christensen catheter since his last hospitalization. Recommend follow-up with urology as an outpatient. (7) Asthma Current Visit: No Status: Chronic Qualifiers: Asthma severity: unspecified severity Asthma persistence: unspecified Asthma complication type: uncomplicated Qualified Code(s): J45.909 - Unspecified asthma, uncomplicated (8) CAD (coronary artery disease) Current Visit: No Status: Chronic Qualifiers: Coronary Disease-Associated Artery/Lesion type: [place] artery [place] vs. transplanted heart: de[place] heart Associated angina: without angina Qualified Code(s): I25.10 - Atherosclerotic heart disease of [place] coronary artery without angina pectoris (9) Charcot ankle Current Visit: No Status: Chronic Qualifiers: Laterality: right Qualified Code(s): M14.671 - Charcot's joint, right ankle and foot (10) Diabetes mellitus Current Visit: No Status: Chronic Qualifiers: Diabetes mellitus type: type 2 Diabetes mellitus jail insulin use: with intermodal customer service use Diabetes mellitus complication status: with neurologic complications Diabetes mellitus complication detail: with polyneuropathy Qualified Code(s): E11.42 - Type 2 diabetes mellitus with diabetic polyneuropathy; Z79.4 - watermelon inspector (current) use of insulin (11) Morbid obesity Current Visit: No Status: Chronic (12) BROCK (obstructive sleep apnea) Current Visit: No Status: Chronic - Subjective Interval history: Since seen examined. No acute events noted overnight. Patient states overall he feels better today. States he is cold, but denies any fevers or rigors. Denies headache or neck pain. Denies chest pain, shortness of breath, or cough. Reports some nausea this morning, but states it has resolved he was able to eat breakfast without problem. Denies any vomiting or diarrhea. States last bowel movement was the day that he came to the hospital. Christensen catheter remains patent. He denies any oral thrush or any skin lesions. He reports mild pain at surgical site. Infect Dis PN-Objective Data - Labs CBC & Chem 7: 04/27/18 07:34 04/27/18 03:25 Labs: Laboratory Results - last 24 hr 04/26/18 04/26/18 04/26/18 05:25 07:21 11:59 WBC RBC Hgb Hct MCV MCH MCHC RDW Plt Count MPV Immature Gran % Seg Neutrophils % Lymphocytes % Monocytes % Eosinophils % Basophils % Neutrophils # Lymphocytes # Monocytes # Eosinophils # Basophils # Sodium Potassium Chloride Carbon Dioxide BUN Creatinine Est GFR ( Amer) Est GFR (Non-Af Amer) BUN/Creatinine Ratio Glucose POC Glucose 158 H 175 H 179 H Calculated Osmolality Calcium 04/26/18 04/26/18 04/27/18 16:51 21:04 03:25 WBC 12.7 H RBC 2.60 L Hgb 7.5 L D Hct 23.6 L MCV 90.8 MCH 28.8 MCHC 31.8 RDW 14.0 Plt Count 422 H MPV 9.8 Immature Gran % 0.9 Seg Neutrophils % 87.6 Lymphocytes % 8.0 Monocytes % 3.1 Eosinophils % 0.1 Basophils % 0.3 Neutrophils # 11.1 H Lymphocytes # 1.0 Monocytes # 0.4 Eosinophils # 0.0 Basophils # 0.0 Sodium Potassium Chloride Carbon Dioxide BUN Creatinine Est GFR ( Amer) Est GFR (Non-Af Amer) BUN/Creatinine Ratio Glucose POC Glucose 223 H 198 H Calculated Osmolality Calcium 04/27/18 04/27/18 04/27/18 03:25 07:34 07:50 WBC 12.8 H RBC 2.53 L Hgb 7.3 L Hct 23.1 L MCV 91.3 MCH 28.9 MCHC 31.6 RDW 14.0 Plt Count 409 H MPV 10.0 Immature Gran % 1.1 Seg Neutrophils % 83.9 Lymphocytes % 9.6 Monocytes % 4.9 Eosinophils % 0.2 Basophils % 0.3 Neutrophils # 10.8 H Lymphocytes # 1.2 Monocytes # 0.6 Eosinophils # 0.0 Basophils # 0.0 Sodium 130 L Potassium 3.8 Chloride 98 Carbon Dioxide 27 BUN 9 Creatinine 0.54 L Est GFR ( Amer) > 60 Est GFR (Non-Af Amer) > 60 BUN/Creatinine Ratio 17 Glucose 190 H POC Glucose 183 H Calculated Osmolality 274 L Calcium 8.2 L 04/27/18 11:45 WBC RBC Hgb Hct MCV MCH MCHC RDW Plt Count MPV Immature Gran % Seg Neutrophils % Lymphocytes % Monocytes % Eosinophils % Basophils % Neutrophils # Lymphocytes # Monocytes # Eosinophils # Basophils # Sodium Potassium Chloride Carbon Dioxide BUN Creatinine Est GFR ( Amer) Est GFR (Non-Af Amer) BUN/Creatinine Ratio Glucose POC Glucose 257 H Calculated Osmolality Calcium Cultures: Cultures 04/25/18 16:22 Wound Culture - Preliminary Right Ankle No pathogens isolated. 04/26/18 16:16 Surgical Biopsy Culture - Preliminary Right Foot 04/25/18 16:40 Blood Culture - Preliminary Peripheral Venipuncture Culture is incubating and being continuously monitored for growth. Final report to follow. 04/25/18 16:40 Blood Culture - Preliminary Peripheral Venipuncture Culture is incubating and being continuously monitored for growth. Final report to follow. Exam - Constitutional Vitals: Temp Pulse Resp BP Pulse Ox 98.0 F 88 18 120/66 100 04/27/18 11:00 04/27/18 11:00 04/27/18 11:00 04/27/18 11:00 04/27/18 11:00 General appearance: cooperative, morbidly obese, no acute distress - Head Head exam: Present: atraumatic, normal inspection, normocephalic - Eye Eye exam: Present: EOMI, normal appearance, PERRL Pupils: Present: normal accommodation - ENT ENT exam: Present: mucous membranes moist - Neck Neck exam: Present: normal inspection - Respiratory Respiratory exam: Present: CTAB. Absent: rales, respiratory distress, rhonchi, wheezes - Cardiovascular Cardiovascular exam: Present: RRR, +S1, +S2 - GI/Abdominal GI/Abdominal exam: Present: distended (obese), normal bowel sounds, soft. Absent: tenderness Additional comments: Christensen catheter noted to be draining clear yellow urine. - Extremities Exam Extremities exam: Present: pedal edema (Trace bilateral lower extremities), tenderness (Right foot and ankle). Absent: normal inspection (Venous stasis dermatitis noted to bilateral lower extremities.) Additional comments: Right foot postop dressing and splint is clean, dry, and intact. - Neurological Exam Neurological exam: Present: alert, oriented X3, no focal deficits - Psychiatric Psychiatric exam: Present: normal affect, normal mood - Skin Skin exam: Present: dry, intact, normal color, warm Consult Discharge Plan - Plan Referrals: Myron Henderson [Primary Care Provider] - - Attending Attestation I examined this patient and my medical decision-making was reviewed with the Resident Physician. I agree with the documented findings, disposition and treatment plan as described except to the extent set forth below.
--- NOTE | 2018-04-27 16:35 | Internal Med Progress Note ---
Hospitalist Progress Note - Encounter Date of Encounter: 04/27/18 Time of Encounter: 10:00 - Subjective Interval History: Patient seen and examined at bedside currently complains of right foot pain. No chest pain or shortness of breath. Has been tolerating oral intake and had a bowel movement this AM - Exam Vitals: Temp Pulse Resp BP Pulse Ox 98.0 F 88 18 120/66 100 04/27/18 11:00 04/27/18 11:00 04/27/18 11:00 04/27/18 11:00 04/27/18 11:00 Exam: General appearance: Present: A&O X 3 Exam - Head Head exam: Present: atraumatic, normocephalic - Eye Eye exam: Present: PERRL, conjuntiva pink, sclera anicteric Pupils: Present: PERRL - Neck Neck exam general surgery: Present: supple, trachea midline. Absent: lymphadenopathy - Respiratory Respiratory exam: Present: CTAB. Absent: accessory muscle use, rales, rhonchi, wheezes - Cardiovascular Cardiovascular exam: Present: RRR, +S1, +S2. Absent: diastolic murmur, gallop, rubs, systolic murmur - GI/Abdominal GI/Abdominal exam: Present: normal bowel sounds, soft, no peritoneal signs. Absent: distended, tenderness - Extremities Exam Extremities exam: Present: warm, radial pulses palpable and symmetrical. r foot dressing intact. Toes are pink brisk capillary refill Absent: calf tenderness , cyanotic, - Neurological Exam Neurological exam: Present: CN II-XII intact, oriented X3, no focal deficits. 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 - Wound is open red with serous sanguinous drainage at this time surrounding tissue was red and tender to touch with edema no crepitus noted. Podiatry has been consulted he will be nothing by mouth after midnight for possible I&D later today Previous cultures grow MSSA-we will obtain wound culture as well as blood cultures Vancomycin and Zosyn xray to r ankle and foot - no changes from previous consult infectious disease 04/27 patient underwent surgical I/D with right talectomy per podiatry on 04/26 tolerated well we will continue with Marvin for pain as well as Roxicodone for severe pain Wound care per podiatry Infectious disease has been consulted history of osteomyelitis previous cultures grew MSSA wound culture has been obtained as well-pending as well as blood cultures no growth to date Continue with vancomycin and Zosyn-monitor renal function Awaiting intraoperative cultures (2) Osteomyelitis Current Visit: Yes Status: Acute Assessment and Plan: 1 previous history of osteomyelitis -MRI 04/11/18 showed findings consistent with abscess, osteomyelitis, and severe tenosynovitis.-Status post I&D 04/12/18- was on IV Ancef for 6 week course We will check CRP and ECR Continue with vancomycin as well as Zosyn Consult podiatry consult infectious disease 04/27 History of osteomyelitis right ankle Status post I&D 04/12/18 intraoperative cultures grew MSSA and was discharged on IV Ancef for 6 weeks however clinical status worsened podiatry was consulted and underwent I&D with cheilectomy 04/26 intraoperative cultures and pathology pending Continue with vancomycin and Zosyn PT/OT eval for discharge planning special services supervisor for discharge planning (3) Hyponatremia Current Visit: No Status: Acute Assessment and Plan: This appears to be chronic-sodium 129-133-we will monitor (4) DVT prophylaxis Current Visit: No Status: Acute Assessment and Plan: Lovenox subcutaneous (5) Diabetes mellitus Current Visit: No Status: Chronic Assessment and Plan: Accu-Cheks before meals at bedtime with sliding scale insulin Diabetic diet (6) BROCK (obstructive sleep apnea) Current Visit: Yes Status: Acute Assessment and Plan: cont CPAP (7) Asthma Current Visit: Yes Status: Acute Assessment and Plan: stable at this time cont bronchodilators and oxygen as needed (8) Urinary retention Current Visit: No Status: Acute Assessment and Plan: has had shah since last discharge- cont will need follow up with urology at discharge - Time Spent with Patient Total time spent is greater than 50% in coordination of care (as documented) at patient's floor/unit and/or counseling patient: Internal Medicine: Result - Labs CBC & Chem 7: 04/27/18 07:34 04/27/18 03:25 Labs: Short CBC 04/27/18 04/27/18 Range/Units 03:25 07:34 WBC 12.7 H 12.8 H (4.3-11.1) K/mcL Hgb 7.5 L D 7.3 L (12.9-16.9) g/dL Hct 23.6 L 23.1 L (37.5-50.1) % Plt Count 422 H 409 H (140-400) K/mcL Neutrophils # 11.1 H 10.8 H (1.6-8.9) K/mcL BMP 04/27/18 03:25 Sodium 130 L Potassium 3.8 Chloride 98 Carbon Dioxide 27 BUN 9 Creatinine 0.54 L Glucose 190 H Calcium 8.2 L - ABG Interpretation ABG results: PT/INR, D-dimer PT 13.3 Seconds (9.4-12.1) H 04/25/18 13:52 Consult Discharge Plan - Plan Referrals: Myron Henderson [Primary Care Provider] - (1) Wound of right ankle Qualifiers: Encounter type: initial encounter Qualified Code(s): S91.001A - Unspecified open wound, right ankle, initial encounter (2) Osteomyelitis Qualifiers: Osteomyelitis type: chronic, with draining sinus Osteomyelitis location: foot Laterality: right Qualified Code(s): M86.471 - Chronic osteomyelitis with draining sinus, right ankle and foot (5) Diabetes mellitus Qualifiers: Diabetes mellitus type: type 2 Diabetes mellitus custodial insulin use: with custodial use Diabetes mellitus complication status: with neurologic complications Diabetes mellitus complication detail: with polyneuropathy Qualified Code(s): E11.42 - Type 2 diabetes mellitus with diabetic polyneuropathy; Z79.4 - manager terminal (current) use of insulin (7) Asthma Qualifiers: Asthma severity: unspecified severity Asthma persistence: unspecified Asthma complication type: unspecified Qualified Code(s): J45.909 - Unspecified asthma, uncomplicated
--- NOTE | 2018-04-27 18:21 | Podiatry Progress Note ---
Date of Encounter: 04/27/18 Time of Encounter: 17:30 - Assessment and Plan (1) Osteomyelitis Current Visit: Yes Status: Acute Discussed surgical procedure, findings and treatment plan. Currently I cannot express any purulence from the lateral ankle wound. There are some of the antibiotic beads seen through the wound. There is adequate hemostasis. Maxsorb and sterile bandage was applied. Patient placed back into posterior splint. He should remain nonweightbearing. Dressing changes twice daily. Antibiotics per infectious disease. Patient says he understands. He will require follow-up in wound care. Qualifiers: Osteomyelitis type: chronic, with draining sinus Osteomyelitis location: foot Laterality: right Qualified Code(s): M86.471 - Chronic osteomyelitis with draining sinus, right ankle and foot Objective - Vital Signs Vital Signs: Vital Signs Temp Pulse Resp BP Pulse Ox 04/27/18 17:00 98.7 F 94 18 109/64 100 04/27/18 11:00 98.0 F 88 18 120/66 100 04/27/18 07:43 98.5 F 84 16 161/69 99 04/27/18 04:39 97.6 F 92 16 149/68 99 04/27/18 03:20 11 99 04/27/18 01:28 17 98 04/26/18 23:50 97.6 F 88 16 129/67 100 04/26/18 22:13 19 99 04/26/18 20:15 16 98 04/26/18 20:10 16 98 04/26/18 18:57 98.0 F 92 16 115/62 99 Intake and Output 04/27/18 04/27/18 04/27/18 07:59 15:59 23:59 Intake Total 910 / 910 1200 / 1200 Output Total 1800 / 1800 1600 / 1600 900 / 900 Balance -890 / -890 -400 / -400 -900 / -900 Intake: IV Fluids 100 / 100 600 / 600 Zosyn 3.375 GM In 0.9 % Sodium 100 / 100 100 / 100 Chloride (Mini-Bag +) 100 ML @ 25 mls/hr IVPB Q8HR JIMMY Rx#: [id number] Vancocin 1,750 MG In 0.9 % 500 / 500 Sodium Chloride 500 ML @ 333. 333 mls/hr IVPB Q12H JIMMY Rx#: [id number] Oral 810 / 810 600 / 600 Output: Catheter 1800 / 1800 1600 / 1600 900 / 900 Other: Meal Lunch Percent of Meal Consumed 80% Blood Glucose* 183 257 301 - Lab Result Diagrams: 04/27/18 07:34 04/27/18 03:25 Labs: Abnormal lab results WBC 12.8 K/mcL (4.3-11.1) H 04/27/18 07:34 RBC 2.53 M/mcL (4.19-5.50) L 04/27/18 07:34 Hgb 7.3 g/dL (12.9-16.9) L 04/27/18 07:34 Hct 23.1 % (37.5-50.1) L 04/27/18 07:34 Plt Count 409 K/mcL (140-400) H 04/27/18 07:34 Neutrophils # 10.8 K/mcL (1.6-8.9) H 04/27/18 07:34 ESR 121 mm/hr (0-10) H 04/25/18 13:52 PT 13.3 Seconds (9.4-12.1) H 04/25/18 13:52 Sodium 130 mEq/L (136-145) L 04/27/18 03:25 Creatinine 0.54 mg/dL (0.70-1.30) L 04/27/18 03:25 Glucose 190 mg/dL (70-105) H 04/27/18 03:25 POC Glucose 301 mg/dL (70-99) H 04/27/18 16:48 Calculated Osmolality 274 (280-300) L 04/27/18 03:25 Calcium 8.2 mg/dL (8.6-10.3) L 04/27/18 03:25 C-Reactive Protein 97 mg/L (Less than 10) H 04/25/18 13:52 Vancomycin Trough 16 mcg/mL (5-10) H 04/27/18 16:30 Microbiology, Last 48 Hours 04/26/18 16:16 Acid Fast Stain - Final Right Foot 04/25/18 16:22 Wound Culture - Preliminary Right Ankle No pathogens isolated. 04/26/18 16:16 Surgical Biopsy Culture - Preliminary Right Foot 04/25/18 16:40 Blood Culture - Preliminary Peripheral Venipuncture Culture is incubating and being continuously monitored for growth. Final report to follow. 04/25/18 16:40 Blood Culture - Preliminary Peripheral Venipuncture Culture is incubating and being continuously monitored for growth. Final report to follow. Consult Discharge Plan - Plan Referrals: Myron Henderson [Primary Care Provider] -
[2018-04-28] MEDS: Piperacillin/Tazobactam 3.375 GM in 0.9 % Sodium Chloride Mini Bag 100 ML IVPB SCH ×4 (00:06→23:47)
[2018-04-28] MEDS: *HR* OxyCODONE Immed Rel 5 MG TABLET PO PRN ×2 (00:44→13:32)
[2018-04-28] MEDS: *HR* HYDROcodone/Acet 5/325 mg TABLET PO PRN ×2 (03:16→09:49)
[2018-04-28] MEDS: Ondansetron 4 MG/2 ML VIAL IVP PRN ×4 (03:16→22:50)
[2018-04-28 03:24] LABS: Basophils # 0.1 K/mcL (0.0-0.2); Basophils % 0.8 %; Eosinophils # 0.3 K/mcL (0.0-0.6); Eosinophils % 3.3 %; Hematocrit 19.7 % (37.5-50.1); Hemoglobin 6.2 g/dL (12.9-16.9); Lymphocytes # 2.2 K/mcL (0.6-4.6); Lymphocytes % 23.6 %; Mean Corpuscular HGB Conc 31.5 g/dL (31.6-35.5); Mean Corpuscular Hemoglobin 28.6 pg (28.0-33.3); Mean Corpuscular Volume 90.8 fL (83.0-100.0); Mean Platelet Volume 9.9 fL (9.4-12.4); Monocytes # 0.7 K/mcL (0.0-1.3); Monocytes % 7.8 %; Neutrophils # 5.9 K/mcL (1.6-8.9); Platelet Count 337 K/mcL (140-400); Red Blood Count 2.17 M/mcL (4.19-5.50); Red Cell Distribution Width 14.3 % (11.5-14.5); Segmented Neutrophils % 63.5 %
[2018-04-28 03:48] LABS: BUN/Creatinine Ratio 12 (6-26); Blood Urea Nitrogen 8 mg/dL (8-23); Calcium 7.7 mg/dL (8.6-10.3); Carbon Dioxide 27 mEq/L (23-29); Chloride 102 mEq/L (98-107); Glucose 243 mg/dL (70-105); Osmolality,Calculated 280 (280-300); Potassium 3.9 mEq/L (3.5-5.1); Sodium 132 mEq/L (136-145); eGFR For Non-African Americans > 60 (> 60)
--- NOTE | 2018-04-28 04:46 | Event Note ---
Date of Encounter: 04/28/18 Time of Encounter: 04:43 Notified of critical lab results by RN, hemoglobin 6.2 with previous hemoglobin 7.3. Patient's hemoglobin has been steadily trending downward since his admission. No obvious signs of bleeding on exam. No respiratory distress. T 98.3 pulse 77 RR 16 BP 112/65 SpO2 97% room air. We will transfuse 1 unit packed red blood cells to optimize healing s/p recent right foot surgery. Type and screen are pending. Have advised RN to hold patient's Lovenox and aspirin. Will also hold Plavix.
[2018-04-28] MEDS: *HR* Enoxaparin 40 MG/0.4 ML SYRINGE SQ SCH (04:47)
[2018-04-28] MEDS: Aspirin 81 MG TAB.CHEW PO SCH (04:48)
[2018-04-28] MEDS ORDERED: 0.9 % Sodium Chloride 500 ML ONE (06:13)
[2018-04-28] MEDS: Budesonide/Formoterol 160/4.5 1 PUFF INH IH SCH ×2 (08:01→20:23)
[2018-04-28] MEDS: Tiotropium 18 MCG inhalation IH SCH (08:01)
[2018-04-28] MEDS: Insulin LISPRO 300 UNITS/3 ML VIAL SQ SCH ×4 (09:47→20:33)
[2018-04-28] MEDS: Magnesium Oxide 400 MG TABLET PO SCH (09:49)
[2018-04-28] MEDS: Isosorbide MONOnitrate (24 HR) 30 MG TAB.ER.24H PO SCH (09:49)
[2018-04-28] MEDS: Folic Acid 1 MG TABLET PO SCH (09:51)
[2018-04-28] MEDS: Multivit/Ca/Min/Fe/FA 1 TAB TABLET PO SCH (09:51)
[2018-04-28] MEDS: FLUoxetine 20 MG CAPSULE PO SCH (09:51)
[2018-04-28] MEDS: Gabapentin 400 MG CAPSULE PO SCH ×4 (09:51→20:29)
--- NOTE | 2018-04-28 10:47 | Internal Med Progress Note ---
Hospitalist Progress Note - Encounter Date of Encounter: 04/28/18 Time of Encounter: 10:47 - Subjective Interval History: 63-year-old male with uncontrolled diabetes mellitus, complicated by Cahrcot's arthropathy presented with worsening infection. He was recently discharged [facility] for management of osteomyelitis of the same right foot secondary to MSSA Wound culture is pending. Podiatry consulted and following. Status post I & D with right talectomy, Intra- op cultures and pathology are pending infectious disease is following, and he is on vancomycin and Zosyn pending final culture reports.Incidental finding of anemia 04/28 likely due to postoperative acute on chronic blood loss, status post 1 unit of red cells. Seen and examined at the bedside, asymptomatic in no form of distress, receiving blood transfusion - Exam Vitals: Temp Pulse Resp BP Pulse Ox 97.7 F 80 16 143/72 100 04/28/18 09:45 04/28/18 09:45 04/28/18 09:45 04/28/18 09:45 04/28/18 09:45 Exam: Gen: VSS, Not in distress Neuro: AAOX3, no focal deficits, no HEENT: Moist oral mucosa, conjunctiva is pink, sclerae is white. No cyanosis. Chest: Clear to auscultation bilaterally with no added sounds. Heart: S1, S2 only. No murmurs gallops or rubs. Abdomen: Obese, nontender, no palpably enlarged organs, bowel sounds present in all quadrants. Extremities: Bilateral pitting pedal edema. R feet in clean wound dressing - Assessment and Plan (1) Osteomyelitis Current Visit: Yes Status: Acute Assessment and Plan: Right ankle osteomyelitis diagnosed on MRI in previous admission. Causative organism MSSA s/p I and D 04/12/18 , discharged to [facility] to continue IV Ancef. However, presented with worsening foot infection with purulent discharge. Repeat I&D with talectomy done by Dr. Tanner 04/26/18 Intra-Op culture and pathology is pending. Continue antibiotics for now-Vancomycin and Zosyn. Infectious disease team is following. Follow final culture reports (2) Diabetes mellitus Current Visit: Yes Status: Chronic Assessment and Plan: FS ACHS Continue insulin Goal FS is 140-180 (3) DVT prophylaxis Current Visit: Yes Status: Acute Assessment and Plan: Patient is anemic, no obvious source of bleeding, continue Lovenox subcutaneous for now, benefits outweigh risks for now (4) Hyponatremia Current Visit: Yes Status: Acute Assessment and Plan: Chronic, stable, improving Continue to monitor (5) Urinary retention Current Visit: Yes Status: Acute Assessment and Plan: has had shah since last discharge- cont will need follow up with urology at discharge (6) Wound of right ankle Current Visit: Yes Status: Acute Assessment and Plan: Right ankle chronic wound, with recent procedure Right foot and ankle x-rays were negative for acute findings. Patient had purulent and bloody discharge at the crown ironer operator's office, hours transferred to the emergency room for admission. Status post repeat I&D with talectomy 04/26, cultures are pending. Continue Zosyn and vancomycin. Pharmacy to dose. Infectious disease following. Blood cultures obtained 2 sets 04/25/18 are no growth to date. Follow final wound cultures, podiatry also following (7) BROCK (obstructive sleep apnea) Current Visit: Yes Status: Chronic Assessment and Plan: cont CPAP (8) Asthma Current Visit: Yes Status: Chronic Assessment and Plan: stable at this time cont bronchodilators and oxygen as needed (9) Anemia Current Visit: Yes Status: Acute Assessment and Plan: Patient with chronic anemia with baseline between 9 and 10. Hemoglobin dropped to 7.5 immediately. On 04/27. Hemoglobin this morning 6.2. Likely due to blood loss from surgery. Received 1 unit of RBC Repeat hemoglobin scheduled for p.m. Continue to monitor, may require red blood cell transfusion for hemoglobin less than 7. (10) Hypertension Current Visit: No Status: Chronic (11) Morbid obesity Current Visit: Yes Status: Chronic Assessment and Plan: encourage weight loss - Time Spent with Patient Total time spent is greater than 50% in coordination of care (as documented) at patient's floor/unit and/or counseling patient: Internal Medicine: Result - Labs CBC & Chem 7: 04/28/18 03:12 04/28/18 03:12 Labs: Short CBC 04/28/18 Range/Units 03:12 WBC 9.3 (4.3-11.1) K/mcL Hgb 6.2 L (12.9-16.9) g/dL Hct 19.7 L (37.5-50.1) % Plt Count 337 (140-400) K/mcL Neutrophils # 5.9 (1.6-8.9) K/mcL BMP 04/28/18 03:12 Sodium 132 L Potassium 3.9 Chloride 102 Carbon Dioxide 27 BUN 8 Creatinine 0.69 L Glucose 243 H Calcium 7.7 L - ABG Interpretation ABG results: PT/INR, D-dimer PT 13.3 Seconds (9.4-12.1) H 04/25/18 13:52 Consult Discharge Plan - Plan Referrals: Myron Henderson [Primary Care Provider] - (1) Osteomyelitis Qualifiers: Osteomyelitis type: chronic, with draining sinus Osteomyelitis location: foot Laterality: right Qualified Code(s): M86.471 - Chronic osteomyelitis with draining sinus, right ankle and foot (2) Diabetes mellitus Qualifiers: Diabetes mellitus type: type 2 Diabetes mellitus residential insulin use: with residential use Diabetes mellitus complication status: with neurologic complications Diabetes mellitus complication detail: with polyneuropathy Qualified Code(s): E11.42 - Type 2 diabetes mellitus with diabetic polyneuropathy; Z79.4 - intermediate frame tender (current) use of insulin (6) Wound of right ankle Qualifiers: Encounter type: initial encounter Qualified Code(s): S91.001A - Unspecified open wound, right ankle, initial encounter (8) Asthma Qualifiers: Asthma severity: unspecified severity Asthma persistence: unspecified Asthma complication type: unspecified Qualified Code(s): J45.909 - Unspecified asthma, uncomplicated (9) Anemia Qualifiers: Anemia type: unspecified type Qualified Code(s): D64.9 - Anemia, unspecified (10) Hypertension Qualifiers: Hypertension type: essential hypertension Qualified Code(s): I10 - Essential (primary) hypertension
[2018-04-28] MEDS: Patient Taking Own Medication 1 EACH PO SCH (12:02)
[2018-04-28] MEDS: NALTREXONE PO SCH (20:53)
[2018-04-28] MEDS: MORPHINE SULFATE PO SCH (20:53)
[2018-04-28 23:10] LABS: Hematocrit 23.9 % (37.5-50.1); Hemoglobin 7.6 g/dL (12.9-16.9)
[2018-04-29 02:12] LABS: Basophils # 0.1 K/mcL (0.0-0.2); Basophils % 1.1 %; Eosinophils # 0.4 K/mcL (0.0-0.6); Eosinophils % 4.4 %; Hemoglobin 7.1 g/dL (12.9-16.9); Immature Granulocytes % 1.3 % (0-4); Lymphocytes # 2.2 K/mcL (0.6-4.6); Lymphocytes % 23.2 %; Mean Corpuscular HGB Conc 32.3 g/dL (31.6-35.5); Mean Corpuscular Hemoglobin 29.1 pg (28.0-33.3); Mean Corpuscular Volume 90.2 fL (83.0-100.0); Mean Platelet Volume 10.3 fL (9.4-12.4); Monocytes # 0.9 K/mcL (0.0-1.3); Monocytes % 9.8 %; Neutrophils # 5.7 K/mcL (1.6-8.9); Platelet Count 321 K/mcL (140-400); Red Blood Count 2.44 M/mcL (4.19-5.50); Red Cell Distribution Width 14.2 % (11.5-14.5); Segmented Neutrophils % 60.2 %
[2018-04-29 02:29] LABS: BUN/Creatinine Ratio 8 (6-26); Blood Urea Nitrogen 6 mg/dL (8-23); Calcium 7.8 mg/dL (8.6-10.3); Carbon Dioxide 25 mEq/L (23-29); Chloride 99 mEq/L (98-107); Glucose 349 mg/dL (70-105); Osmolality,Calculated 282 (280-300); Potassium 3.7 mEq/L (3.5-5.1); Sodium 130 mEq/L (136-145); eGFR For Non-African Americans > 60 (> 60)
[2018-04-29] MEDS: *HR* Enoxaparin 40 MG/0.4 ML SYRINGE SQ SCH (04:47)
[2018-04-29] MEDS: Ondansetron 4 MG/2 ML VIAL IVP PRN ×2 (04:56→14:11)
[2018-04-29] MEDS: *HR* HYDROcodone/Acet 5/325 mg TABLET PO PRN ×2 (05:04→16:26)
[2018-04-29] MEDS: 0.9 % Sodium Chloride 1,000 ML IVC SCH (07:29)
[2018-04-29] MEDS: Piperacillin/Tazobactam 3.375 GM in 0.9 % Sodium Chloride Mini Bag 100 ML IVPB SCH ×4 (07:29→23:35)
[2018-04-29] MEDS: Tiotropium 18 MCG inhalation IH SCH (07:48)
[2018-04-29] MEDS: Budesonide/Formoterol 160/4.5 1 PUFF INH IH SCH ×2 (07:48→21:55)
[2018-04-29] MEDS: Insulin LISPRO 300 UNITS/3 ML VIAL SQ SCH ×4 (08:24→21:01)
[2018-04-29] MEDS: Aspirin 81 MG TAB.CHEW PO SCH (08:26)
[2018-04-29] MEDS: Magnesium Oxide 400 MG TABLET PO SCH (08:27)
[2018-04-29] MEDS: FLUoxetine 20 MG CAPSULE PO SCH (08:27)
[2018-04-29] MEDS: Gabapentin 400 MG CAPSULE PO SCH ×4 (08:28→21:01)
[2018-04-29] MEDS: Folic Acid 1 MG TABLET PO SCH (08:28)
[2018-04-29] MEDS: Multivit/Ca/Min/Fe/FA 1 TAB TABLET PO SCH (08:28)
[2018-04-29] MEDS: Isosorbide MONOnitrate (24 HR) 30 MG TAB.ER.24H PO SCH (08:29)
[2018-04-29] MEDS: MORPHINE SULFATE PO SCH ×2 (08:41→21:01)
[2018-04-29] MEDS: NALTREXONE PO SCH ×2 (08:41→21:01)
--- NOTE | 2018-04-29 10:52 | Internal Med Progress Note ---
Hospitalist Progress Note - Encounter Date of Encounter: 04/29/18 Time of Encounter: 10:50 - Exam Vitals: Temp Pulse Resp BP Pulse Ox 98.1 F 79 18 130/80 100 04/29/18 08:02 04/29/18 08:02 04/29/18 08:02 04/29/18 08:02 04/29/18 08:46 Exam: Gen: VSS, Not in distress Neuro: AAOX3, no focal deficits, no HEENT: Moist oral mucosa, conjunctiva is pink, sclerae is white. No cyanosis. Chest: Clear to auscultation bilaterally with no added sounds. Heart: S1, S2 only. No murmurs gallops or rubs. Abdomen: Obese, nontender, no palpably enlarged organs, bowel sounds present in all quadrants. Extremities: Bilateral pitting pedal edema. R feet in clean wound dressing - Assessment and Plan (1) Osteomyelitis Current Visit: Yes Status: Acute Assessment and Plan: Right ankle osteomyelitis diagnosed on MRI in previous admission. Causative organism MSSA s/p I and D 04/12/18 , discharged to senior care facility to continue IV Ancef. However, presented with worsening foot infection with purulent discharge. Repeat I&D with talectomy done by Dr. Tanner 04/26/18 Intra-Op culture and pathology is pending. Continue antibiotics for now-Vancomycin and Zosyn. Infectious disease team is following. Follow final culture reports (2) Diabetes mellitus Current Visit: Yes Status: Chronic Assessment and Plan: FS ACHS Continue insulin Goal FS is 140-180 (3) Hypertension Current Visit: No Status: Chronic Assessment and Plan: Continue home meds (4) Morbid obesity Current Visit: Yes Status: Chronic Assessment and Plan: encourage weight loss (5) Hyponatremia Current Visit: Yes Status: Acute Assessment and Plan: Chronic, stable, improving Continue to monitor (6) Urinary retention Current Visit: Yes Status: Acute Assessment and Plan: has had shah since last discharge- cont will need follow up with urology at discharge (7) Wound of right ankle Current Visit: Yes Status: Acute Assessment and Plan: Right ankle chronic wound, with recent procedure Right foot and ankle x-rays were negative for acute findings. Patient had purulent and bloody discharge at the drug abuse treatment specialist's office, hours transferred to the emergency room for admission. Status post repeat I&D with talectomy 04/26, cultures are pending. Continue Zosyn and vancomycin. Pharmacy to dose. Infectious disease following. Blood cultures obtained 2 sets 04/25/18 are no growth to date. Follow final wound cultures, podiatry also following (8) Anemia Current Visit: Yes Status: Acute Assessment and Plan: Patient with chronic anemia with baseline between 9 and 10. Hemoglobin dropped to 7.5 immediately. On 04/27. Hemoglobin this morning 6.2. Likely due to blood loss from surgery. Received 1 unit of RBC Repeat hemoglobin scheduled for p.m. Continue to monitor, may require red blood cell transfusion for hemoglobin less than 7. (9) BROCK (obstructive sleep apnea) Current Visit: Yes Status: Chronic Assessment and Plan: cont CPAP (10) Asthma Current Visit: Yes Status: Chronic Assessment and Plan: stable at this time cont bronchodilators and oxygen as needed (11) DVT prophylaxis Current Visit: Yes Status: Acute Assessment and Plan: Patient is anemic, no obvious source of bleeding, continue Lovenox subcutaneous for now, benefits outweigh risks for now - Time Spent with Patient Total time spent is greater than 50% in coordination of care (as documented) at patient's floor/unit and/or counseling patient: Internal Medicine: Result - Labs CBC & Chem 7: 04/29/18 01:19 04/29/18 01:19 Labs: Short CBC 04/28/18 04/29/18 Range/Units 23:01 01:19 WBC 9.5 (4.3-11.1) K/mcL Hgb 7.6 L 7.1 L (12.9-16.9) g/dL Hct 23.9 L 22.0 L (37.5-50.1) % Plt Count 321 (140-400) K/mcL Neutrophils # 5.7 (1.6-8.9) K/mcL BMP 04/29/18 01:19 Sodium 130 L Potassium 3.7 Chloride 99 Carbon Dioxide 25 BUN 6 L Creatinine 0.72 Glucose 349 H Calcium 7.8 L - ABG Interpretation ABG results: PT/INR, D-dimer PT 13.3 Seconds (9.4-12.1) H 04/25/18 13:52 Consult Discharge Plan - Plan Referrals: Myron Henderson [Primary Care Provider] - (1) Osteomyelitis Qualifiers: Osteomyelitis type: chronic, with draining sinus Osteomyelitis location: foot Laterality: right Qualified Code(s): M86.471 - Chronic osteomyelitis with draining sinus, right ankle and foot (2) Diabetes mellitus Qualifiers: Diabetes mellitus type: type 2 Diabetes mellitus 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 insulin use: with usp use Diabetes mellitus complication status: with neurologic complications Diabetes mellitus complication detail: with polyneuropathy Qualified Code(s): E11.42 - Type 2 diabetes mellitus with diabetic polyneuropathy; Z79.4 - custodial (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
[2018-04-29] MEDS ORDERED: 0.9 % Sodium Chloride 250 ML ONE ×2 (11:34→15:46)
[2018-04-29] MEDS: *HR* OxyCODONE Immed Rel 5 MG TABLET PO PRN (14:11)
[2018-04-30] MEDS: *HR* HYDROcodone/Acet 5/325 mg TABLET PO PRN ×2 (01:42→13:20)
[2018-04-30] MEDS: *HR* Enoxaparin 40 MG/0.4 ML SYRINGE SQ SCH (05:09)
[2018-04-30] MEDS: Budesonide/Formoterol 160/4.5 1 PUFF INH IH SCH ×2 (08:03→20:10)
[2018-04-30] MEDS: Tiotropium 18 MCG inhalation IH SCH (08:03)
[2018-04-30] MEDS: Isosorbide MONOnitrate (24 HR) 30 MG TAB.ER.24H PO SCH (09:03)
[2018-04-30] MEDS: Folic Acid 1 MG TABLET PO SCH (09:03)
[2018-04-30] MEDS: Multivit/Ca/Min/Fe/FA 1 TAB TABLET PO SCH (09:03)
[2018-04-30] MEDS: Magnesium Oxide 400 MG TABLET PO SCH (09:04)
[2018-04-30] MEDS: Gabapentin 400 MG CAPSULE PO SCH ×4 (09:04→21:19)
[2018-04-30] MEDS: MORPHINE SULFATE PO SCH ×2 (09:04→21:19)
[2018-04-30] MEDS: FLUoxetine 20 MG CAPSULE PO SCH (09:04)
[2018-04-30] MEDS: NALTREXONE PO SCH ×2 (09:04→21:19)
[2018-04-30] MEDS: Aspirin 81 MG TAB.CHEW PO SCH (09:04)
[2018-04-30] MEDS: Piperacillin/Tazobactam 3.375 GM in 0.9 % Sodium Chloride Mini Bag 100 ML IVPB SCH ×2 (09:05→15:30)
[2018-04-30] MEDS: Insulin LISPRO 300 UNITS/3 ML VIAL SQ SCH ×4 (09:05→21:22)
--- NOTE | 2018-04-30 09:28 | Electrocardiograph Report ---
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
--- NOTE | 2018-04-30 10:55 | Podiatry Progress Note ---
Date of Encounter: 04/30/18 Time of Encounter: 10:55 - Assessment and Plan (1) Wound of right ankle Current Visit: Yes Status: Acute Assessment: #1Wound: Status post I&D right ankle with talectomy/I&D Plan: #1 We will continue dressing changes as ordered #2 antibiotics per infectious disease recommendations #3 pending placement and extended care facility for long- term intravenous antibiotics and wound care Qualifiers: Encounter type: initial encounter Qualified Code(s): S91.001A - Unspecified open wound, right ankle, initial encounter Subjective Principal diagnosis: Osteomyelitis right ankle Interval history: #1 postop day #4. No complaints of pain and expected vital signs stable afebrile. Objective - Vital Signs Vital Signs: Vital Signs Temp Pulse Resp BP Pulse Ox 04/30/18 09:38 94 04/30/18 08:03 16 100 04/30/18 06:48 98.3 F 73 18 116/65 94 04/30/18 02:55 98.5 F 73 18 154/89 96 04/30/18 00:10 17 99 04/29/18 23:19 98.4 F 73 18 123/73 98 04/29/18 21:55 16 98 04/29/18 18:32 98.5 F 71 16 131/71 98 04/29/18 18:28 73 100 04/29/18 16:01 98.6 F 78 16 130/74 98 04/29/18 15:51 98.6 F 79 16 125/77 96 04/29/18 12:05 97.8 F 79 16 117/71 99 04/29/18 11:48 98.0 F 80 18 138/50 99 04/29/18 11:39 97.4 F L 69 18 99 04/29/18 11:23 98.4 F 84 16 99/51 98 Intake and Output 04/29/18 04/30/18 04/30/18 23:59 07:59 15:59 Intake Total 1812 / 1812 1500 / 1500 860 / 860 Output Total 3075 / 3075 3375 / 3375 1300 / 1300 Balance -1263 / -1263 -1875 / -1875 -440 / -440 Intake: IV Fluids 602 / 602 100 / 100 500 / 500 0.9 % Sodium Chloride 250 ML @ 2 / 2 0 mls/hr .ROUTE .[facility] Rx #:[id number] Zosyn 3.375 GM In 0.9 % Sodium 100 / 100 100 / 100 Chloride (Mini-Bag +) 100 ML @ 25 mls/hr IVPB Q8HR [facility] Rx#: [id number] Vancocin 1,750 MG In 0.9 % 500 / 500 500 / 500 Sodium Chloride 500 ML @ 333. 333 mls/hr IVPB Q12H [facility] Rx#: [id number] Oral 510 / 510 1400 / 1400 360 / 360 Blood Product 700 / 700 Rbcs Leuko Poor As-1 Unit 700 / 700 [id number] Output: Urine 1200 / 1200 Catheter 3075 / 3075 2175 / 2175 1300 / 1300 Other: Meal Dinner Breakfast Percent of Meal Consumed 100% Stool Size Moderate Stool Consistency soft Stool Color Brown # Bowel Movements 1 Weight 121.58 kg Blood Glucose* 281 269 Patient Weight 04/30/18 23:59 Weight 121.58 kg - Exam Exam: Dressing dry clean and intact. Cultures no growth Gram stain gram-positive cocci Pathology report indicative of osteomyelitis Capillary Refill: less than 3 seconds - Radiology X-Rays: image reviewed - Lab Result Diagrams: 04/29/18 01:19 04/29/18 01:19 Labs: Abnormal lab results RBC 2.44 M/mcL (4.19-5.50) L 04/29/18 01:19 Hgb 7.1 g/dL (12.9-16.9) L 04/29/18 01:19 Hct 22.0 % (37.5-50.1) L 04/29/18 01:19 ESR 121 mm/hr (0-10) H 04/25/18 13:52 PT 13.3 Seconds (9.4-12.1) H 04/25/18 13:52 Sodium 130 mEq/L (136-145) L 04/29/18 01:19 BUN 6 mg/dL (8-23) L 04/29/18 01:19 Glucose 349 mg/dL (70-105) H 04/29/18 01:19 POC Glucose 281 mg/dL (70-99) H 04/29/18 20:08 Calcium 7.8 mg/dL (8.6-10.3) L 04/29/18 01:19 C-Reactive Protein 97 mg/L (Less than 10) H 04/25/18 13:52 Vancomycin Trough 16 mcg/mL (5-10) H 04/30/18 03:58 Microbiology, Last 48 Hours 04/26/18 16:16 Surgical Biopsy Culture - Final Right Foot 04/26/18 16:16 Anaerobic Culture - Preliminary Right Foot No growth. 04/25/18 16:22 Wound Culture - Final Right Ankle No pathogens isolated. Consult Discharge Plan - Plan Referrals: Myron Henderson [Primary Care Provider] -
--- NOTE | 2018-04-30 10:59 | Internal Med Progress Note ---
Hospitalist Progress Note - Encounter Date of Encounter: 04/30/18 Time of Encounter: 11:00 - Exam Vitals: Temp Pulse Resp BP Pulse Ox 98.3 F 73 16 116/65 94 04/30/18 06:48 04/30/18 06:48 04/30/18 08:03 04/30/18 06:48 04/30/18 09:38 Exam: Gen: VSS, Not in distress Neuro: AAOX3, no focal deficits, no HEENT: Moist oral mucosa, conjunctiva is pink, sclerae is white. No cyanosis. Chest: Clear to auscultation bilaterally with no added sounds. Heart: S1, S2 only. No murmurs gallops or rubs. Abdomen: Obese, nontender, no palpably enlarged organs, bowel sounds present in all quadrants. Extremities: Bilateral pitting pedal edema. R feet in clean wound dressing - Assessment and Plan (1) Osteomyelitis Current Visit: Yes Status: Acute Assessment and Plan: Right ankle osteomyelitis diagnosed on MRI in previous admission. Causative organism MSSA s/p I and D 04/12/18 , discharged to residential facility to continue IV Ancef. However, presented with worsening foot infection with purulent discharge. Repeat I&D with talectomy done by Dr. Tanner 04/26/18 . Follow up blood cultures. Wound cultures negative so far Continue antibiotics for now-Vancomycin and Zosyn. Infectious disease team is following. (2) Diabetes mellitus Current Visit: Yes Status: Chronic Assessment and Plan: FS ACHS Continue insulin Goal FS is 140-180 (3) Hypertension Current Visit: No Status: Chronic Assessment and Plan: Continue home meds (4) Morbid obesity Current Visit: Yes Status: Chronic Assessment and Plan: encourage weight loss (5) Hyponatremia Current Visit: Yes Status: Acute Assessment and Plan: Chronic, stable, improving Continue to monitor (6) Urinary retention Current Visit: Yes Status: Acute Assessment and Plan: has had shah since last discharge- cont will need follow up with urology at discharge (7) Wound of right ankle Current Visit: Yes Status: Acute Assessment and Plan: Right ankle chronic wound, with recent procedure Right foot and ankle x-rays were negative for acute findings. Patient had purulent and bloody discharge at the city driver's office, hours transferred to the emergency room for admission. Status post repeat I&D with talectomy 04/26, cultures are pending. Continue Zosyn and vancomycin. Pharmacy to dose. Infectious disease following. Blood cultures obtained 2 sets 04/25/18 are no growth to date. Follow final wound cultures, podiatry also following (8) Anemia Current Visit: Yes Status: Acute Assessment and Plan: Patient with chronic anemia with baseline between 9 and 10. Hemoglobin dropped to 7.5 immediately. On 04/27. Hemoglobin this morning 6.2. Likely due to blood loss from surgery. Received 1 unit of RBC Repeat hemoglobin scheduled for p.m. Continue to monitor, may require red blood cell transfusion for hemoglobin less than 7. (9) BROCK (obstructive sleep apnea) Current Visit: Yes Status: Chronic Assessment and Plan: cont CPAP (10) Asthma Current Visit: Yes Status: Chronic Assessment and Plan: stable at this time cont bronchodilators and oxygen as needed (11) DVT prophylaxis Current Visit: Yes Status: Acute Assessment and Plan: Lovenox sc - Time Spent with Patient Total time spent is greater than 50% in coordination of care (as documented) at patient's floor/unit and/or counseling patient: Internal Medicine: Result - Labs CBC & Chem 7: 04/30/18 11:04 04/29/18 01:19 - ABG Interpretation ABG results: PT/INR, D-dimer PT 13.3 Seconds (9.4-12.1) H 04/25/18 13:52 Consult Discharge Plan - Plan Referrals: Myron Henderson [Primary Care Provider] - (1) Osteomyelitis Qualifiers: Osteomyelitis type: chronic, with draining sinus Osteomyelitis location: foot Laterality: right Qualified Code(s): M86.471 - Chronic osteomyelitis with draining sinus, right ankle and foot (2) Diabetes mellitus Qualifiers: Diabetes mellitus type: type 2 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 group home use Diabetes mellitus complication status: with neurologic complications Diabetes mellitus complication detail: with polyneuropathy Qualified Code(s): E11.42 - Type 2 diabetes mellitus with diabetic polyneuropathy; Z79.4 - [facility]DC (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
[2018-04-30 11:44] LABS: Basophils # 0.1 K/mcL (0.0-0.2); Basophils % 1.1 %; Eosinophils # 0.6 K/mcL (0.0-0.6); Hematocrit 28.5 % (37.5-50.1); Immature Granulocytes % 1.6 % (0-4); Lymphocytes # 1.8 K/mcL (0.6-4.6); Lymphocytes % 21.4 %; Mean Corpuscular HGB Conc 31.2 g/dL (31.6-35.5); Mean Corpuscular Hemoglobin 28.8 pg (28.0-33.3); Mean Corpuscular Volume 92.2 fL (83.0-100.0); Mean Platelet Volume 10.1 fL (9.4-12.4); Monocytes # 0.7 K/mcL (0.0-1.3); Platelet Count 266 K/mcL (140-400); Red Blood Count 3.09 M/mcL (4.19-5.50); Red Cell Distribution Width 14.6 % (11.5-14.5); Segmented Neutrophils % 60.9 %
[2018-04-30 11:45] LABS: Hemoglobin 8.9 g/dL (12.9-16.9)
[2018-04-30] MEDS: Acetaminophen 325 MG TABLET PO PRN (15:31)
[2018-05-01] MEDS: Piperacillin/Tazobactam 3.375 GM in 0.9 % Sodium Chloride Mini Bag 100 ML IVPB SCH ×2 (00:01→07:42)
[2018-05-01] MEDS: Ondansetron 4 MG/2 ML VIAL IVP PRN (04:10)
[2018-05-01 05:28] LABS: Basophils # 0.1 K/mcL (0.0-0.2); Eosinophils # 0.6 K/mcL (0.0-0.6); Eosinophils % 6.5 %; Hematocrit 27.7 % (37.5-50.1); Hemoglobin 8.8 g/dL (12.9-16.9); Immature Granulocytes % 2.1 % (0-4); Lymphocytes # 1.7 K/mcL (0.6-4.6); Lymphocytes % 19.3 %; Mean Corpuscular HGB Conc 31.8 g/dL (31.6-35.5); Mean Corpuscular Hemoglobin 29.4 pg (28.0-33.3); Mean Corpuscular Volume 92.6 fL (83.0-100.0); Mean Platelet Volume 10.3 fL (9.4-12.4); Monocytes # 0.7 K/mcL (0.0-1.3); Monocytes % 7.7 %; Neutrophils # 5.7 K/mcL (1.6-8.9); Platelet Count 243 K/mcL (140-400); Red Blood Count 2.99 M/mcL (4.19-5.50); Red Cell Distribution Width 14.8 % (11.5-14.5); Segmented Neutrophils % 63.4 %
[2018-05-01 05:54] LABS: BUN/Creatinine Ratio 14 (6-26); Blood Urea Nitrogen 8 mg/dL (8-23); Calcium 7.9 mg/dL (8.6-10.3); Carbon Dioxide 26 mEq/L (23-29); Chloride 101 mEq/L (98-107); Glucose 216 mg/dL (70-105); Magnesium 1.9 mg/dL (1.6-2.6); Osmolality,Calculated 277 (280-300); Phosphorous 3.1 mg/dL (2.7-4.5); Potassium 3.9 mEq/L (3.5-5.1); Sodium 131 mEq/L (136-145); eGFR For Non-African Americans > 60 (> 60)
[2018-05-01] MEDS: *HR* Enoxaparin 40 MG/0.4 ML SYRINGE SQ SCH (06:06)
[2018-05-01] MEDS ORDERED: Aminoglycoside Consult 1 EACH MC ONE (07:32)
[2018-05-01] MEDS: FLUoxetine 20 MG CAPSULE PO SCH (07:40)
[2018-05-01] MEDS: Gabapentin 400 MG CAPSULE PO SCH ×4 (07:40→21:36)
[2018-05-01] MEDS: Aspirin 81 MG TAB.CHEW PO SCH (07:40)
[2018-05-01] MEDS: Insulin LISPRO 300 UNITS/3 ML VIAL SQ SCH ×5 (07:40→21:35)
[2018-05-01] MEDS: Isosorbide MONOnitrate (24 HR) 30 MG TAB.ER.24H PO SCH (07:40)
[2018-05-01] MEDS: Magnesium Oxide 400 MG TABLET PO SCH (07:40)
[2018-05-01] MEDS: Folic Acid 1 MG TABLET PO SCH (07:41)
[2018-05-01] MEDS: Multivit/Ca/Min/Fe/FA 1 TAB TABLET PO SCH (07:41)
[2018-05-01] MEDS: Tiotropium 18 MCG inhalation IH SCH (07:43)
[2018-05-01] MEDS: Budesonide/Formoterol 160/4.5 1 PUFF INH IH SCH ×2 (07:43→20:14)
[2018-05-01] MEDS: NALTREXONE PO SCH ×2 (09:11→21:36)
[2018-05-01] MEDS: MORPHINE SULFATE PO SCH ×2 (09:11→21:36)
--- NOTE | 2018-05-01 11:14 | Internal Med Progress Note ---
Hospitalist Progress Note - Encounter Date of Encounter: 05/01/18 Time of Encounter: 11:30 - Exam Vitals: Temp Pulse Resp BP Pulse Ox 98.1 F 83 18 122/67 97 05/01/18 11:04 05/01/18 11:04 05/01/18 11:04 05/01/18 11:04 05/01/18 11:04 Exam: Gen: VSS, Not in distress Neuro: AAOX3, no focal deficits, no HEENT: Moist oral mucosa, conjunctiva is pink, sclerae is white. No cyanosis. Chest: Clear to auscultation bilaterally with no added sounds. Heart: S1, S2 only. No murmurs gallops or rubs. Abdomen: Obese, nontender, no palpably enlarged organs, bowel sounds present in all quadrants. Extremities: Bilateral pitting pedal edema. R feet in clean wound dressing - Assessment and Plan (1) Osteomyelitis Current Visit: Yes Status: Acute Assessment and Plan: Right ankle osteomyelitis diagnosed on MRI in previous admission. Causative organism MSSA s/p I and D 04/12/18 , discharged to snf facility to continue IV Ancef. However, presented with worsening foot infection with purulent discharge. Repeat I&D with talectomy done by Dr. Tanner 04/26/18 . Blood and Wound cultures negative so far Continue antibiotics for now-Vancomycin and Zosyn. Infectious disease team is following and appreciate recs for duration of antibiotics discharge planning (2) Diabetes mellitus Current Visit: Yes Status: Chronic Assessment and Plan: FS ACHS Continue insulin Goal FS is 140-180 (3) Hypertension Current Visit: No Status: Chronic Assessment and Plan: Continue home meds (4) Morbid obesity Current Visit: Yes Status: Chronic Assessment and Plan: encourage weight loss (5) Hyponatremia Current Visit: Yes Status: Acute Assessment and Plan: Chronic, stable, improving Continue to monitor (6) Urinary retention Current Visit: Yes Status: Acute Assessment and Plan: has had shah since last discharge- cont will need follow up with urology at discharge (7) Wound of right ankle Current Visit: Yes Status: Acute Assessment and Plan: Right ankle chronic wound, with recent procedure Right foot and ankle x-rays were negative for acute findings. 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 Status post repeat I&D with talectomy 04/26, cultures are pending. Continue Zosyn and vancomycin. Pharmacy to dose. Infectious disease following. Blood cultures obtained 2 sets 04/25/18 are no growth to date. Follow final wound cultures, podiatry also following (8) Anemia Current Visit: Yes Status: Acute Assessment and Plan: Patient with chronic anemia with baseline between 9 and 10. Hemoglobin dropped to 7.5 immediately. On 04/27. Hemoglobin this morning 6.2. Likely due to blood loss from surgery. Received 1 unit of RBC Repeat hemoglobin scheduled for p.m. Continue to monitor, may require red blood cell transfusion for hemoglobin less than 7. (9) BROCK (obstructive sleep apnea) Current Visit: Yes Status: Chronic Assessment and Plan: cont CPAP (10) Asthma Current Visit: Yes Status: Chronic Assessment and Plan: stable at this time cont bronchodilators and oxygen as needed (11) DVT prophylaxis Current Visit: Yes Status: Acute Assessment and Plan: Lovenox sc - Time Spent with Patient Total time spent is greater than 50% in coordination of care (as documented) at patient's floor/unit and/or counseling patient: Internal Medicine: Result - Labs CBC & Chem 7: 05/01/18 05:07 05/01/18 05:07 Labs: Short CBC 04/30/18 05/01/18 Range/Units 11:04 05:07 WBC 8.3 9.0 (4.3-11.1) K/mcL Hgb 8.9 L D 8.8 L (12.9-16.9) g/dL Hct 28.5 L 27.7 L (37.5-50.1) % Plt Count 266 243 (140-400) K/mcL Neutrophils # 5.0 5.7 (1.6-8.9) K/mcL BMP 05/01/18 05:07 Sodium 131 L Potassium 3.9 Chloride 101 Carbon Dioxide 26 BUN 8 Creatinine 0.59 L Glucose 216 H Calcium 7.9 L - ABG Interpretation ABG results: PT/INR, D-dimer PT 13.3 Seconds (9.4-12.1) H 04/25/18 13:52 Consult Discharge Plan - Plan Referrals: Myron Henderson [Primary Care Provider] - (1) Osteomyelitis Qualifiers: Osteomyelitis type: chronic, with draining sinus Osteomyelitis location: foot Laterality: right Qualified Code(s): M86.471 - Chronic osteomyelitis with draining sinus, right ankle and foot (2) Diabetes mellitus Qualifiers: Diabetes mellitus type: type 2 Diabetes mellitus fdc insulin use: with intermodal dispatcher use Diabetes mellitus complication status: with neurologic complications Diabetes mellitus complication detail: with polyneuropathy Qualified Code(s): E11.42 - Type 2 diabetes mellitus with diabetic polyneuropathy; Z79.4 - 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 (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
--- NOTE | 2018-05-01 12:29 | Podiatry Progress Note ---
Date of Encounter: 05/01/18 Time of Encounter: 12:00 - Assessment and Plan (1) Osteomyelitis Current Visit: Yes Status: Acute Assessment: #1Wound: Status post I&D right ankle with talectomy/I&D Plan: #1 We will continue dressing changes as ordered #2 antibiotics per infectious disease recommendations- Vanc and Zosyn at this time #3 pending placement and extended care facility for long- term intravenous antibiotics and wound care Dressing removed and changed at bedside Flushed wound with saline, adaptic 4x4, kerlix, posterior splint and DARSHAN applied Patient tolerated well, no complications Will obtain foot and ankle xray today Plan for probable external fixator device with antibiotic spacer to be placed later this week per Continue to monitor Pending ECF placement . Qualifiers: Osteomyelitis type: chronic, with draining sinus Osteomyelitis location: foot Laterality: right Qualified Code(s): M86.471 - Chronic osteomyelitis with draining sinus, right ankle and foot (2) Diabetes mellitus Current Visit: Yes Status: Chronic Qualifiers: Diabetes mellitus type: type 2 Diabetes mellitus assistant terminal manager insulin use: with skilled nursing use Diabetes mellitus complication status: with neurologic complications Diabetes mellitus complication detail: with polyneuropathy Qualified Code(s): E11.42 - Type 2 diabetes mellitus with diabetic polyneuropathy; Z79.4 - halfway (current) use of insulin Subjective Principal diagnosis: Osteomyelitis right ankle Interval history: POD #5 s/p right talectomy right ankle/foot incision and drainage per Patient resting comfortably in bed. Denies any pain. Dressing CDI , states it was changed per nursing staff this AM. Patient states he will eventually go to ECF Denies any fevers, chills, n/v fls or calf pain or sob. Objective - Vital Signs Vital Signs: Vital Signs Temp Pulse Resp BP Pulse Ox 05/01/18 11:04 98.1 F 83 18 122/67 97 05/01/18 07:43 18 93 05/01/18 06:15 98.2 F 85 18 100/61 93 05/01/18 03:12 98.1 F 88 18 111/66 96 04/30/18 20:12 16 100 04/30/18 19:03 98.5 F 80 18 111/70 95 04/30/18 15:12 97.9 F 86 18 104/60 96 Intake and Output 04/30/18 05/01/18 05/01/18 23:59 07:59 15:59 Intake Total 2170 / 2170 900 / 900 1100 / 1100 Output Total 3550 / 3550 3700 / 3700 Balance -1380 / -1380 -2800 / -2800 1100 / 1100 Intake: IV Fluids 600 / 600 100 / 100 500 / 500 Zosyn 3.375 GM In 0.9 % Sodium 100 / 100 100 / 100 Chloride (Mini-Bag +) 100 ML @ 25 mls/hr IVPB Q8HR [facility] Rx#: [id number] Vancocin 1,750 MG In 0.9 % 500 / 500 500 / 500 Sodium Chloride 500 ML @ 333. 333 mls/hr IVPB Q12H [facility] Rx#: [id number] Oral 1570 / 1570 800 / 800 600 / 600 Output: Catheter 3550 / 3550 3700 / 3700 Other: Meal Lunch Breakfast Percent of Meal Consumed 100% 100% Stool Size Copious Stool Consistency loose Stool Color Brown Green # Bowel Movements 1 Weight 121.4 kg Blood Glucose* 265 321 272 Patient Weight 05/01/18 23:59 Weight 121.4 kg - Exam Exam: Awake alert and oriented Pulses palpable DP/PT warm toes to tibia Cap refill <3 seconds No calf pain to manual compression Minimal sensation to light touch Surgical site Open surgical wound to lateral aspect right malleolus- [id number] without any noted probe to bone at this time. No bone fragments noted Friable- easily bleeds No purulent drainage no odor No surrounding edema, erythema or warmth No fluctuance No necrosis No ascending cellulitis - Lab Result Diagrams: 05/01/18 05:07 05/01/18 05:07 Labs: Abnormal lab results RBC 2.99 M/mcL (4.19-5.50) L 05/01/18 05:07 Hgb 8.8 g/dL (12.9-16.9) L 05/01/18 05:07 Hct 27.7 % (37.5-50.1) L 05/01/18 05:07 RDW 14.8 % (11.5-14.5) H 05/01/18 05:07 ESR 121 mm/hr (0-10) H 04/25/18 13:52 PT 13.3 Seconds (9.4-12.1) H 04/25/18 13:52 Sodium 131 mEq/L (136-145) L 05/01/18 05:07 Creatinine 0.59 mg/dL (0.70-1.30) L 05/01/18 05:07 Glucose 216 mg/dL (70-105) H 05/01/18 05:07 POC Glucose 265 mg/dL (70-99) H 04/30/18 20:26 Calculated Osmolality 277 (280-300) L 05/01/18 05:07 Calcium 7.9 mg/dL (8.6-10.3) L 05/01/18 05:07 C-Reactive Protein 97 mg/L (Less than 10) H 04/25/18 13:52 Vancomycin Trough 16 mcg/mL (5-10) H 04/30/18 03:58 Microbiology, Last 48 Hours 04/25/18 16:40 Blood Culture - Final Peripheral Venipuncture No growth. Final report. 04/25/18 16:40 Blood Culture - Final Peripheral Venipuncture No growth. Final report. 04/26/18 16:16 Anaerobic Culture - Preliminary Right Foot At this time, no anaerobic growth is present. The culture will be finalized after 5 days of incubation. 04/26/18 16:16 Surgical Biopsy Culture - Final Right Foot Consult Discharge Plan - Plan Referrals: Myron Henderson [Primary Care Provider] -
--- NOTE | 2018-05-01 16:48 | Infectious Disease Progress No ---
Date of Encounter: 05/01/18 Time of Encounter: 10:50 - Assessment and Plan (1) Wound of right ankle Current Visit: Yes Status: Acute Location: Right ankle. Secondary to recent surgical procedure. According to the notes, there appeared to be purulent drainage and concerns for possible abscess underlying the surgical site. Right foot and ankle x-rays were negative for acute findings. ESR elevated at 121 and CRP 97. Blood cultures obtained 2 sets 04/25/18 are no growth to date. Wound culture is negative. Podiatry consulted and following. Status post I & D with right talectomy. Operative note reviewed. Purulence noted intra-op. Intra-op cultures and pathology are negative. Wound care and activity restrictions per the podiatry team. Discontinue Vanc and Zosyn. Start Ancef 2 grams IV Q8H. Duration of treatment depends on the clinical picture, but likely 4-6 weeks from the most recent surgery. Monitor renal function and for drug toxicity and dose adjust antibiotics. Qualifiers: Encounter type: initial encounter Qualified Code(s): S91.001A - Unspecified open wound, right ankle, initial encounter (2) Abscess of right foot Current Visit: No Status: Acute Location: Right ankle. Causative organism: MSSA. Status post I&D 04/12/18. Intraoperative cultures were positive for MSSA. Podiatry consult. Status post I & D 04/26/18. Intra-op cultures are negative. Continue antibiotics as above for now. (3) Osteomyelitis Current Visit: Yes Status: Acute Location: Right ankle. Causative organism: MSSA. Status post I&D 04/12/18. Intra-Op cultures were positive for MSSA. Pathology was positive for osteoarthritis. Discharged with plans to complete 6 weeks of IV Ancef, the patient had worsening of the clinical status. Podiatry consulted. Status post I & D with talectomy 04/26/[address] Harrington. Intra-op culture and pathology are negative. Continue antibiotics as above for now. Qualifiers: Osteomyelitis type: chronic, with draining sinus Osteomyelitis location: foot Laterality: right Qualified Code(s): M86.471 - Chronic osteomyelitis with draining sinus, right ankle and foot (4) Bacteremia Current Visit: No Status: Acute Causative organism: MSSA. Diagnosed on last hospital visit with blood cultures 2 out of 2 sets drawn 04/09/18. Repeat blood cultures drawn 04/11/18 were negative 2 sets. TTE was limited, so a ISRAEL was performed and was negative for endocarditis. Repeat blood cultures drawn 04/25/18 are NGTD 2 sets. No evidence of recurrence of bacteremia noted on exam. Repeat blood cultures are negative. Continue antibiotics as above for now. (5) Urinary retention Current Visit: Yes Status: Acute Has had a chronic indwelling Christensen catheter since his last hospitalization. Recommend follow-up with urology as an outpatient. (6) Asthma Current Visit: No Status: Chronic Qualifiers: Asthma severity: unspecified severity Asthma persistence: unspecified Asthma complication type: uncomplicated Qualified Code(s): J45.909 - Unspecified asthma, uncomplicated (7) CAD (coronary artery disease) Current Visit: No Status: Chronic Qualifiers: Coronary Disease-Associated Artery/Lesion type: [place] artery [place] vs. transplanted heart: [place] heart Associated angina: without angina Qualified Code(s): I25.10 - Atherosclerotic heart disease of [place] coronary artery without angina pectoris (8) Charcot ankle Current Visit: No Status: Chronic Qualifiers: Laterality: right Qualified Code(s): M14.671 - Charcot's joint, right ankle and foot (9) Diabetes mellitus Current Visit: Yes Status: Chronic Recommend aggressive glucose monitoring and control to promote wound healing and prevent re-infection. Management per the primary team. 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 Weekend notes reviewed. No acute events noted overnight. Patient states overall he feels better today. Denies any fevers or rigors. Denies headache or neck pain. Denies chest pain, shortness of breath, or cough. Reports some nausea this morning, but states it has resolved he was able to eat breakfast without problem. Denies any vomiting or diarrhea. States last bowel movement was this morning. Christensen catheter remains patent. He denies any oral thrush or any skin lesions. He reports mild pain at surgical site. Infect Dis PN-Objective Data - Labs CBC & Chem 7: 05/02/18 01:08 05/02/18 01:08 Labs: Laboratory Results - last 24 hr 04/30/18 05/01/18 05/01/18 20:26 05:07 05:07 WBC 9.0 RBC 2.99 L Hgb 8.8 L Hct 27.7 L MCV 92.6 MCH 29.4 MCHC 31.8 RDW 14.8 H Plt Count 243 MPV 10.3 Immature Gran % 2.1 Seg Neutrophils % 63.4 Lymphocytes % 19.3 Monocytes % 7.7 Eosinophils % 6.5 Basophils % 1.0 Neutrophils # 5.7 Lymphocytes # 1.7 Monocytes # 0.7 Eosinophils # 0.6 Basophils # 0.1 Sodium 131 L Potassium 3.9 Chloride 101 Carbon Dioxide 26 BUN 8 Creatinine 0.59 L Est GFR ( Amer) > 60 Est GFR (Non-Af Amer) > 60 BUN/Creatinine Ratio 14 Glucose 216 H POC Glucose 265 H Calculated Osmolality 277 L Calcium 7.9 L Phosphorus 3.1 Magnesium 1.9 05/01/18 05/01/18 05/01/18 07:01 11:06 16:01 WBC RBC Hgb Hct MCV MCH MCHC RDW Plt Count MPV Immature Gran % Seg Neutrophils % Lymphocytes % Monocytes % Eosinophils % Basophils % Neutrophils # Lymphocytes # Monocytes # Eosinophils # Basophils # Sodium Potassium Chloride Carbon Dioxide BUN Creatinine Est GFR ( Amer) Est GFR (Non-Af Amer) BUN/Creatinine Ratio Glucose POC Glucose 321 H 272 H 304 H Calculated Osmolality Calcium Phosphorus Magnesium Cultures: Cultures 04/25/18 16:40 Blood Culture - Final Peripheral Venipuncture No growth. Final report. 04/25/18 16:40 Blood Culture - Final Peripheral Venipuncture No growth. Final report. 04/26/18 16:16 Anaerobic Culture - Preliminary Right Foot At this time, no anaerobic growth is present. The culture will be finalized after 5 days of incubation. 04/26/18 16:16 Surgical Biopsy Culture - Final Right Foot 04/25/18 16:22 Wound Culture - Final Right Ankle No pathogens isolated. 04/26/18 16:16 Acid Fast Stain - Final Right Foot - Impressions Impressions Ankle X-Ray 05/01/18 12:53 IMPRESSION: Severe arthropathy suspected to be due to neuropathic joint, with superimposed osteomyelitis a consideration given new lucency of the lateral malleolus and slightly increased irregular loss of bone of the periarticular tibia. Diffuse soft tissue swelling is slightly decreased. D/ / Kavin Landeros MD / Kavin Landeros MD Interpreting Provider: Kavin Landeros MD Foot X-Ray 05/01/18 12:53 IMPRESSION: Resection of the talus since the previous exam. No other significant interval change is appreciated. Continued radiographic follow-up is recommended. D/ / Crow Chaparro MD / Crow Chaparro MD Interpreting Provider: Crow Chaparro MD Exam - Constitutional Vitals: Temp Pulse Resp BP Pulse Ox 98.3 F 89 18 104/63 97 05/01/18 14:23 05/01/18 14:23 05/01/18 14:23 05/01/18 14:23 05/01/18 14:23 General appearance: cooperative, morbidly obese, no acute distress - Head Head exam: Present: atraumatic, normal inspection, normocephalic - Eye Eye exam: Present: EOMI, normal appearance, PERRL Pupils: Present: normal accommodation - ENT ENT exam: Present: mucous membranes moist - Neck Neck exam: Present: normal inspection - Respiratory Respiratory exam: Present: CTAB. Absent: rales, respiratory distress, rhonchi, wheezes - Cardiovascular Cardiovascular exam: Present: RRR, +S1, +S2 - GI/Abdominal GI/Abdominal exam: Present: distended (obese), normal bowel sounds, soft. Absent: tenderness Additional comments: Christensen catheter noted to be draining clear yellow urine. - Extremities Exam Extremities exam: Absent: joint swelling, normal inspection (Right foot post-op dressing C/D/I.), pedal edema, tenderness - Neurological Exam Neurological exam: Present: alert, oriented X3, no focal deficits - Psychiatric Psychiatric exam: Present: normal affect, normal mood - Skin Skin exam: Present: dry, intact, normal color, warm Consult Discharge Plan - Plan Referrals: Myron Henderson [Primary Care Provider] - - Attending Attestation I examined this patient and my medical decision-making was reviewed with the Resident Physician. I agree with the documented findings, disposition and treatment plan as described except to the extent set forth below.
[2018-05-01] MEDS: Insulin DETEMIR 100 UNIT/ML X5UNITS SQ SCH (21:36)
[2018-05-02 01:21] LABS: Basophils # 0.1 K/mcL (0.0-0.2); Basophils % 1.2 %; Eosinophils # 0.6 K/mcL (0.0-0.6); Eosinophils % 7.1 %; Hematocrit 27.7 % (37.5-50.1); Hemoglobin 8.8 g/dL (12.9-16.9); Immature Granulocytes % 1.7 % (0-4); Lymphocytes # 1.7 K/mcL (0.6-4.6); Lymphocytes % 21.4 %; Mean Corpuscular HGB Conc 31.8 g/dL (31.6-35.5); Mean Corpuscular Hemoglobin 29.3 pg (28.0-33.3); Mean Corpuscular Volume 92.3 fL (83.0-100.0); Mean Platelet Volume 10.3 fL (9.4-12.4); Monocytes # 0.7 K/mcL (0.0-1.3); Monocytes % 8.7 %; Neutrophils # 4.8 K/mcL (1.6-8.9); Platelet Count 219 K/mcL (140-400); Segmented Neutrophils % 59.9 %
[2018-05-02 01:41] LABS: BUN/Creatinine Ratio 12 (6-26); Blood Urea Nitrogen 7 mg/dL (8-23); Calcium 8.1 mg/dL (8.6-10.3); Carbon Dioxide 28 mEq/L (23-29); Chloride 101 mEq/L (98-107); Glucose 191 mg/dL (70-105); Magnesium 1.8 mg/dL (1.6-2.6); Osmolality,Calculated 283 (280-300); Sodium 135 mEq/L (136-145); eGFR For Non-African Americans > 60 (> 60)
[2018-05-02] MEDS: Piperacillin/Tazobactam 3.375 GM in 0.9 % Sodium Chloride Mini Bag 100 ML IVPB SCH (04:15)
[2018-05-02] MEDS: *HR* Enoxaparin 40 MG/0.4 ML SYRINGE SQ SCH (05:46)
[2018-05-02] MEDS: Aspirin 81 MG TAB.CHEW PO SCH (09:04)
[2018-05-02] MEDS: Multivit/Ca/Min/Fe/FA 1 TAB TABLET PO SCH (09:04)
[2018-05-02] MEDS: FLUoxetine 20 MG CAPSULE PO SCH (09:05)
[2018-05-02] MEDS: Magnesium Oxide 400 MG TABLET PO SCH (09:05)
[2018-05-02] MEDS: Isosorbide MONOnitrate (24 HR) 30 MG TAB.ER.24H PO SCH (09:05)
[2018-05-02] MEDS: Gabapentin 400 MG CAPSULE PO SCH ×4 (09:06→21:00)
[2018-05-02] MEDS: Folic Acid 1 MG TABLET PO SCH (09:06)
[2018-05-02] MEDS: Insulin LISPRO 300 UNITS/3 ML VIAL SQ SCH ×7 (09:11→20:59)
[2018-05-02] MEDS: MORPHINE SULFATE PO SCH ×2 (09:45→22:23)
[2018-05-02] MEDS: NALTREXONE PO SCH ×2 (09:45→22:23)
[2018-05-02] MEDS: Tiotropium 18 MCG inhalation IH SCH (11:17)
[2018-05-02] MEDS: Budesonide/Formoterol 160/4.5 1 PUFF INH IH SCH ×2 (11:18→20:29)
--- NOTE | 2018-05-02 13:15 | Podiatry Progress Note ---
Date of Encounter: 05/04/18 Time of Encounter: 12:10 - Assessment and Plan (1) Osteomyelitis Current Visit: Yes Status: Acute plan for OR . nature of procedure TC fusion with external fixator use of bone graft and bone cement discussed with patient at length Qualifiers: Osteomyelitis type: chronic, with draining sinus Osteomyelitis location: foot Laterality: right Qualified Code(s): M86.471 - Chronic osteomyelitis with draining sinus, right ankle and foot Subjective Principal diagnosis: Osteomyelitis right ankle Objective - Vital Signs Vital Signs: Vital Signs Temp Pulse Resp BP Pulse Ox 05/02/18 11:59 97.7 F 99 16 155/73 92 05/02/18 09:30 94 05/02/18 07:08 97.9 F 81 16 145/70 94 05/02/18 03:29 98.1 F 81 18 150/73 99 05/01/18 22:41 98.3 F 91 16 125/65 97 05/01/18 20:14 18 93 05/01/18 18:07 98.7 F 93 18 101/63 94 05/01/18 14:23 98.3 F 89 18 104/63 97 Intake and Output 05/01/18 05/02/18 05/02/18 23:59 07:59 15:59 Intake Total 1000 / 1000 250 / 250 Output Total 7175 / 7175 5400 / 5400 1999 Balance -7175 / -7175 -4400 / -4400 -1750 / -1750 Intake: IV Fluids 100 / 100 Ancef 2,000 MG In 0.9 % Sodium 100 / 100 Chloride 100 ML @ 200 mls/hr IVPB Q8HR [facility] Rx#:[id number] Oral 900 / 900 250 / 250 Output: Urine 1500 / 1500 1999 Catheter 7175 / 7175 3900 / 3900 Urethral (Christensen) 1999 Other: Meal Breakfast Percent of Meal Consumed 100% Weight 121.6 kg Blood Glucose* 207 204 247 Patient Weight 05/02/18 23:59 Weight 121.6 kg - Lab Result Diagrams: 05/04/18 05:15 05/04/18 05:15 Labs: Abnormal lab results RBC 3.00 M/mcL (4.19-5.50) L 05/02/18 01:08 Hgb 8.8 g/dL (12.9-16.9) L 05/02/18 01:08 Hct 27.7 % (37.5-50.1) L 05/02/18 01:08 RDW 15.0 % (11.5-14.5) H 05/02/18 01:08 ESR 121 mm/hr (0-10) H 04/25/18 13:52 PT 13.3 Seconds (9.4-12.1) H 04/25/18 13:52 Sodium 135 mEq/L (136-145) L 05/02/18 01:08 BUN 7 mg/dL (8-23) L 05/02/18 01:08 Creatinine 0.59 mg/dL (0.70-1.30) L 05/02/18 01:08 Glucose 191 mg/dL (70-105) H 05/02/18 01:08 POC Glucose 174 mg/dL (70-99) H 05/02/18 00:25 Calcium 8.1 mg/dL (8.6-10.3) L 05/02/18 01:08 C-Reactive Protein 97 mg/L (Less than 10) H 04/25/18 13:52 Vancomycin Trough 16 mcg/mL (5-10) H 04/30/18 03:58 Microbiology, Last 48 Hours 04/26/18 16:16 Anaerobic Culture - Final Right Foot No anaerobes were recovered. 04/25/18 16:40 Blood Culture - Final Peripheral Venipuncture No growth. Final report. 04/25/18 16:40 Blood Culture - Final Peripheral Venipuncture No growth. Final report. Consult Discharge Plan - Plan Referrals: Myron Henderson [Primary Care Provider] -
--- NOTE | 2018-05-02 13:20 | Discharge Summary ---
- NOTES TO OUTPATIENT PROVIDER Notes to Outpatient Provider: PCP in 5 to 7 days Orders not resulted at time of discharge: Pending orders 04/26/18 16:16 AFB Culture, Tissue [TB] Routine AFB Smear [TB] Routine Fungal Culture [MYC] Routine 05/03/18 04:00 Basic Metabolic Panel AM 0400 CBC [Complete Blood Count] [HEME] AM 0400 Magnesium AM 0400 Phosphorous AM 0400 05/04/18 04:00 Basic Metabolic Panel AM 0400 CBC [Complete Blood Count] [HEME] AM 0400 Magnesium AM 0400 Phosphorous AM 0400 05/05/18 04:00 Basic Metabolic Panel AM 0400 CBC [Complete Blood Count] [HEME] AM 0400 Magnesium AM 0400 Phosphorous AM 0400 05/06/18 04:00 Basic Metabolic Panel AM 0400 CBC [Complete Blood Count] [HEME] AM 0400 Magnesium AM 0400 Phosphorous AM 0400 Date of Encounter: 05/05/18 Time of Encounter: 13:14 Hospital course: Mr. Newsome is a 63 year old male with past medical history of COPD, diabetes, hyperlipidemia, CAD, s/p CABG, history of osteomyelitis of his right ankle. He has had multiple hospitalizations for his wound to his right ankle discharge December 2017 on antibiotics also discharged 04/17/2018 again for sepsis and IV antibiotics. On his last admission patient was seen by infectious disease was found to have osteomyelitis of his right ankle causative organism MSSA. Patient discharged to [facility] with continued IV Ancef for 6 week course. During the previous admission he did undergo transesophageal echocardiogram which did not show any endocarditis. He was receiving wound care at the [facility] and he went for a follow-up today with podiatry. While in the trade clerk's office his wound did open with thick purulent drainage. He was sent to the ER for evaluation. Lab work was completed which did show some hyponatremia as well as hypokalemia. He does have a low-grade temperature 99.5 his systolic is on the low side at 100. Podiatry consulted and patient was admitted for possible I&D in a.m. Wound cultures and blood cultures obtained and pt treated with Zosyn and add vancomycin. Assessment and Plan (1) Osteomyelitis Current Visit: Yes Status: Acute Assessment and Plan: Right ankle osteomyelitis diagnosed on MRI in previous admission. Causative organism MSSA s/p I and D 04/12/18 , discharged to [facility] facility to continue IV Ancef. However, presented with worsening foot infection with purulent discharge . Repeat I&D with talectomy done by Dr. Tanner 04/26/18 . Blood and Wound cultures negative to date Seen by ID and discontinued Vancomycin and Zosyn. Infectious disease recommending ancef 2 grams IV Q8H for 4-6 weeks. (2) Diabetes mellitus Current Visit: Yes Status: Chronic Assessment and Plan: Resume home regimen inulin at [place]. DOse can be adjusted by [place] physician as deemed necessary. Goal FS is 140-180 (3) Hypertension Current Visit: No Status: Chronic Assessment and Plan: Pt can resume Imdur 30 mg PO QD, Hyzaar, and Metoprolol. Held on admission due to low BP. (4) Morbid obesity Current Visit: Yes Status: Chronic Assessment and Plan: Life style modification such as diet and exercise recommended. (5) Hyponatremia Current Visit: Yes Status: Acute Assessment and Plan: Improved with IVF, Na 135 at discharge up from 131 Continue to monitor (6) Urinary retention Current Visit: Yes Status: Acute Assessment and Plan: has had shah since last discharge- cont will need follow up with urology at discharge (7) Abscess of right foot Current Visit: Yes Status: Acute Assessment and Plan: Causative organism: MSSA. Status post I&D 04/12/18 and intraoperative cultures were positive for MSSA. Podiatry consulted and status post I & D 04/26/18 and intra-op cultures are negative. Continue antibiotics as above for now. ID discontinuing Zosyn and vancomycin. (8) Bacteremia Current Visit: No Status: Acute Causative organism: MSSA. Diagnosed on last hospital visit with blood cultures 2 out of 2 sets drawn 04/09/18. Repeat blood cultures drawn 04/11/18 were negative 2 sets. TTE was limited, so a ISRAEL was performed and was negative for endocarditis. Repeat blood cultures drawn 04/25/18 are NGTD 2 sets. No evidence of recurrence of bacteremia noted on exam. Repeat blood cultures are negative. Continue antibiotics as above for now. (9) Anemia Current Visit: Yes Status: Acute Assessment and Plan: Patient with chronic anemia with baseline between 9 and 10. Drop in hemoglobin likely due to blood loss from surgery. Given 1 unit of RBC. Repeat hemoglobin 8.8 at discharge. Continue to monitor, may require red blood cell transfusion for hemoglobin less than 7 per [place] physician discretion. (10) BROCK (obstructive sleep apnea) Current Visit: Yes Status: Chronic Assessment and Plan: cont CPAP (11) Asthma Current Visit: Yes Status: Chronic Assessment and Plan: stable at this time cont bronchodilators and oxygen as needed Discharge discussed with: patient - Time Spent with Patient Total time spent providing and/or coordinating discharge services: Greater than 30 minutes - Discharge Medications Prescriptions: HYDROcodone/Acet 5/325 mg [[place] 5-325 mg] 1 tab PO Q6HR PRN 7 Days #20 tablet PRN Reason: Moderate Pain ceFAZolin [Ancef] 2,000 mg IVPB Q8H #30 vial Gabapentin [Neurontin] 800 mg PO QID #28 capsule Home Medications: Amlodipine Besylate 10 mg PO DAILY 07/11/17 [History] Aspirin 81 mg PO DAILY 07/11/17 [History] Atorvastatin Calcium 40 mg PO HS 07/11/17 [History] Clopidogrel [Plavix] 75 mg PO DAILY 07/11/17 [History] EPINEPHrine [Epipen] 0.3 mg IM ONCE PRN 07/11/17 [History] Fluticasone/Salmeterol [Advair Hfa 230-21 Mcg Inhaler] 2 puff IH BID 07/11/17 [ History] Folic Acid 1 mg PO DAILY 07/11/17 [History] Gabapentin [Neurontin] 800 mg PO QID 07/11/17 [History] Nitroglycerin [Nitrostat] 0.4 mg SL Q5M PRN MDD [id number] call 911 07/11/17 [ History] Omeprazole [PriLOSEC] 20 mg PO DAILY 07/11/17 [History] Oxygen 2 l NS HS 07/11/17 [History] Potassium Chloride [Klor-Con 10] 10 meq PO DAILY 07/11/17 [History] Empagliflozin [Jardiance] 10 mg PO DAILY 01/20/18 [History] FLUoxetine HCl [Prozac] 60 mg PO DAILY 01/20/18 [History] Furosemide [Lasix] 80 mg PO BID 01/20/18 [History] Montelukast [Singulair] 10 mg PO DAILY 01/20/18 [History] Pramlintide Acetate [Symlinpen 120] 120 mg SQ TIDWM 01/20/18 [History] Albuterol Neb [Proventil Neb] 2.5 mg IH Q4HR PRN 04/11/18 [History] Isosorbide MONOnitrate (24 HR) [Imdur] 30 mg PO DAILY 04/11/18 [History] Losartan/Hydrochlorothiazide [Hyzaar 100-12.5 Tablet] 1 tab PO DAILY 04/11/18 [ History] Magnesium Oxide [Magnesium] 400 mg PO DAILY 04/11/18 [History] Multivitamin [One Daily Multivitamin] 1 tab PO DAILY 04/11/18 [History] [place]-3/Dha/Epa/Fish Oil [Fish Oil 1,000 mg Softgel] 1 cap PO DAILY 04/11/18 [ History] Morphine Sulfate/Naltrexone [Embeda ER 80-3.2 mg Capsule] 1 cap PO BID 5 Days # 10 cap.er.po 04/17/18 [Rx] Collagenase Oint [Santyl] 1 appl TP DAILY 04/25/18 [History] Insulin Regular U-500 [HumuLIN R U-500] 25 unit SQ TID 04/25/18 [History] Metoprolol Succinate [Toprol Xl] 50 mg PO DAILY 04/25/18 [History] Omalizumab [XOLAIR (For Outpatient Infusion)] 300 mg SQ Q2W 04/25/18 [History] Tiotropium [Spiriva] 18 mcg IH DAILY 04/25/18 [History] Gabapentin [Neurontin] 800 mg PO QID #28 capsule 05/05/18 [Rx] HYDROcodone/Acet 5/325 mg [[place] 5-325 mg] 1 tab PO Q6HR PRN 7 Days #20 tablet 05/05/18 [Rx] ceFAZolin [Ancef] 2,000 mg IVPB Q8H #30 vial 05/05/18 [Rx] Allergies/Adverse Reactions: 3 Allergy/AdvReac Type Severity Reaction Status Date / Time dapagliflozin [From [facility]] Allergy Hives Verified 01/20/18 19:08 naphazoline Allergy Hives Verified 01/20/18 19:08 cath DYE Allergy Hives Uncoded 01/20/18 19:08 Date of admission: 04/25/18 15:54 Primary care physician: Caio Henderson Consults: 04/25/18 17:16 Consult to Infectious Diseases [CONS] Routine Consulting Provider: Infectious Disease Lisa Reason for Consult: osteomylitis Time Notified: 17:19 Call Completed: No 04/25/18 17:32 Consult to Glassware Selector [CONS] Routine Reason for SW Consult: PATIENT ADMITTED FROM [facility] 04/27/18 18:21 Consult to Occupational Therapy [CONS] Routine Comment: Evaluate, develop and implement POC Reason for Consult: discharge planning Does patient have active BEDREST order?: No Is patient medically & hemodynamically stable?: Yes Consult to Physical Therapy [CONS] Routine Comment: Evaluate, develop and implement POC Reason for Consult: discharge order Does patient have active BEDREST order?: No Is patient medically & hemodynamically stable?: Yes Discharging clinician: Sade Gonzalez Anticipated date of discharge: 05/02/18 - Constitutional Vitals: Temp Pulse Resp BP Pulse Ox 97.7 F 99 16 155/73 92 05/02/18 11:59 05/02/18 11:59 05/02/18 11:59 05/02/18 11:59 05/02/18 11:59 General appearance: Present: A&O X 3 - Patient Status Disposition: Transfer SNF Condition: Fair Overall status at discharge: patient is progressing back to baseline - Discharge Instructions Follow Up With: Myron Henderson [Primary Care Provider] - - Diet and Activity Activity: as per physical therapy, increase activity as tolerated Diet: diabetic diet, low fat, low cholesterol, low salt diet
[2018-05-02] MEDS: *HR* OxyCODONE Immed Rel 5 MG TABLET PO PRN (13:29)
--- NOTE | 2018-05-02 14:47 | Internal Med Progress Note ---
Hospitalist Progress Note - Encounter Date of Encounter: 05/02/18 Time of Encounter: 10:02 - Subjective Interval History: Pt states RLE pain controlled. Denies fever, chills, N/V, diarrhea. Denies CP or SOB. - Exam Vitals: Temp Pulse Resp BP Pulse Ox 97.7 F 99 16 155/73 92 05/02/18 11:59 05/02/18 11:59 05/02/18 11:59 05/02/18 11:59 05/02/18 11:59 Exam: Gen: VSS, Not in distress Neuro: AAOX3, no focal deficits, no HEENT: Moist oral mucosa, conjunctiva is pink, sclerae is white. No cyanosis. Chest: Clear to auscultation bilaterally with no added sounds. Heart: S1, S2 only. No murmurs gallops or rubs. Abdomen: Obese, nontender, no palpably enlarged organs, bowel sounds present in all quadrants. Extremities: Bilateral pitting pedal edema. R feet in clean wound dressing - Assessment and Plan (1) Osteomyelitis Current Visit: Yes Status: Acute Assessment and Plan: Assessment and Plan (1) Osteomyelitis Current Visit: Yes Status: Acute Assessment and Plan: Right ankle osteomyelitis diagnosed on MRI in previous admission. Causative organism MSSA s/p I and D 04/12/18 , discharged to [facility]-way facility to continue IV Ancef. However, presented with worsening foot infection with purulent discharge . Repeat I&D with talectomy done by Dr. Tanner 04/26/18 . Blood and Wound cultures negative to date Seen by ID and discontinued Vancomycin and Zosyn. Infectious disease recommending ancef 2 grams IV Q8H for 4-6 weeks. Podiatry planning external fixator device with antibiotic spacer to be placed later this week per . Surgery possibly on or Tue05/04/2018 or 05/05/2018. (2) Diabetes mellitus Current Visit: Yes Status: Chronic Assessment and Plan: [facility]se can be adjusted by [facility] physician as deemed necessary. Goal FS is 140-180 (3) Hypertension Current Visit: No Status: Chronic Assessment and Plan: Pt can resume Imdur 30 mg PO QD, Hyzaar, and Metoprolol. Held on admission due to low BP. (4) Morbid obesity Current Visit: Yes Status: Chronic Assessment and Plan: Life style modification such as diet and exercise recommended. (5) Hyponatremia Current Visit: Yes Status: Acute Assessment and Plan: Improved with IVF, Na 135 at discharge up from 131 Continue to monitor (6) Urinary retention Current Visit: Yes Status: Acute Assessment and Plan: has had shah since last discharge- cont will need follow up with urology at discharge (7) Abscess of right foot Current Visit: Yes Status: Acute Assessment and Plan: Causative organism: MSSA. Status post I&D 04/12/18 and intraoperative cultures were positive for MSSA. Podiatry consulted and status post I & D 04/26/18 and intra-op cultures are negative. Continue antibiotics as above for now. ID discontinuing Zosyn and vancomycin. (8) Bacteremia Current Visit: No Status: Acute Causative organism: MSSA. Diagnosed on last hospital visit with blood cultures 2 out of 2 sets drawn 04/09/18. Repeat blood cultures drawn 04/11/18 were negative 2 sets. TTE was limited, so a ISRAEL was performed and was negative for endocarditis. Repeat blood cultures drawn 04/25/18 are NGTD 2 sets. No evidence of recurrence of bacteremia noted on exam. Repeat blood cultures are negative. Continue antibiotics as above for now. (9) Anemia Current Visit: Yes Status: Acute Assessment and Plan: Patient with chronic anemia with baseline between 9 and 10. Drop in hemoglobin likely due to blood loss from surgery. Given 1 unit of RBC. Repeat hemoglobin 8.8 at discharge. Continue to monitor, may require red blood cell transfusion for hemoglobin less than 7 per [facility] physician discretion. (10) BROCK (obstructive sleep apnea) Current Visit: Yes Status: Chronic Assessment and Plan: cont CPAP (11) Asthma Current Visit: Yes Status: Chronic Assessment and Plan: stable at this time cont bronchodilators and oxygen as needed DVT Prophylaxis: Lovenox - Summary of Assessment and Plan Summary of Assessment and Plan: Mr. Newsome is a 63 year old male with past medical history of COPD, diabetes, hyperlipidemia, CAD, s/p CABG, history of osteomyelitis of his right ankle. He has had multiple hospitalizations for his wound to his right ankle discharge December 2017 on antibiotics also discharged 04/17/2018 again for sepsis and IV antibiotics. On his last admission patient was seen by infectious disease was found to have osteomyelitis of his right ankle causative organism MSSA. Patient discharged to [facility] with continued IV Ancef for 6 week course. During the previous admission he did undergo transesophageal echocardiogram which did not show any endocarditis. He was receiving wound care at the [facility] and he went for a follow-up today with podiatry. While in the horticultural specialty grower inside's office his wound did open with thick purulent drainage. He was sent to the ER for evaluation. Lab work was completed which did show some hyponatremia as well as hypokalemia. He does have a low-grade temperature 99.5 his systolic is on the low side at 100. Podiatry consulted and patient was admitted for possible I&D in a.m. Wound cultures and blood cultures obtained and pt treated with Zosyn and add vancomycin. - Time Spent with Patient Total time spent is greater than 50% in coordination of care (as documented) at patient's floor/unit and/or counseling patient: less than 15 minutes Plan of Care Discussed with: patient Internal Medicine: Result - Labs CBC & Chem 7: 05/02/18 01:08 05/02/18 01:08 Labs: Short CBC 05/02/18 Range/Units 01:08 WBC 8.0 (4.3-11.1) K/mcL Hgb 8.8 L (12.9-16.9) g/dL Hct 27.7 L (37.5-50.1) % Plt Count 219 (140-400) K/mcL Neutrophils # 4.8 (1.6-8.9) K/mcL BMP 05/02/18 01:08 Sodium 135 L Potassium 4.0 Chloride 101 Carbon Dioxide 28 BUN 7 L Creatinine 0.59 L Glucose 191 H Calcium 8.1 L - ABG Interpretation ABG results: PT/INR, D-dimer PT 13.3 Seconds (9.4-12.1) H 04/25/18 13:52 - Impressions Impressions Ankle X-Ray 05/01/18 12:53 IMPRESSION: Severe arthropathy suspected to be due to neuropathic joint, with superimposed osteomyelitis a consideration given new lucency of the lateral malleolus and slightly increased irregular loss of bone of the periarticular tibia. Diffuse soft tissue swelling is slightly decreased. D/ / Kavin Landeros MD / Kavin Landeros MD Interpreting Provider: Kavin Landeros MD Foot X-Ray 05/01/18 12:53 IMPRESSION: Resection of the talus since the previous exam. No other significant interval change is appreciated. Continued radiographic follow-up is recommended. D/ / Crow Chaparro MD / Crow Chaparro MD Interpreting Provider: Crow Chaparro MD Consult Discharge Plan - Plan Referrals: Myron Henderson [Primary Care Provider] - (1) Osteomyelitis Qualifiers: Osteomyelitis type: chronic, with draining sinus Osteomyelitis location: foot Laterality: right Qualified Code(s): M86.471 - Chronic osteomyelitis with draining sinus, right ankle and foot
[2018-05-02] MEDS: Insulin DETEMIR 100 UNIT/ML X5UNITS SQ SCH (21:00)
[2018-05-03 01:46] LABS: Basophils # 0.1 K/mcL (0.0-0.2); Eosinophils # 0.6 K/mcL (0.0-0.6); Eosinophils % 6.9 %; Hematocrit 27.9 % (37.5-50.1); Hemoglobin 8.7 g/dL (12.9-16.9); Immature Granulocytes % 1.3 % (0-4); Lymphocytes # 1.6 K/mcL (0.6-4.6); Lymphocytes % 18.1 %; Mean Corpuscular HGB Conc 31.2 g/dL (31.6-35.5); Mean Corpuscular Hemoglobin 29.1 pg (28.0-33.3); Mean Corpuscular Volume 93.3 fL (83.0-100.0); Mean Platelet Volume 10.8 fL (9.4-12.4); Monocytes # 0.7 K/mcL (0.0-1.3); Monocytes % 7.7 %; Neutrophils # 5.8 K/mcL (1.6-8.9); Platelet Count 258 K/mcL (140-400); Red Blood Count 2.99 M/mcL (4.19-5.50); Red Cell Distribution Width 14.7 % (11.5-14.5)
[2018-05-03 02:08] LABS: BUN/Creatinine Ratio 17 (6-26); Blood Urea Nitrogen 9 mg/dL (8-23); Calcium 8.2 mg/dL (8.6-10.3); Carbon Dioxide 32 mEq/L (23-29); Chloride 94 mEq/L (98-107); Glucose 218 mg/dL (70-105); Magnesium 1.7 mg/dL (1.6-2.6); Osmolality,Calculated 279 (280-300); Phosphorous 3.2 mg/dL (2.7-4.5); Potassium 4.1 mEq/L (3.5-5.1); Sodium 132 mEq/L (136-145); eGFR For Non-African Americans > 60 (> 60)
[2018-05-03] MEDS: *HR* Enoxaparin 40 MG/0.4 ML SYRINGE SQ SCH (05:19)
[2018-05-03] MEDS: Acetaminophen 325 MG TABLET PO PRN (06:20)
[2018-05-03] MEDS: Isosorbide MONOnitrate (24 HR) 30 MG TAB.ER.24H PO SCH (08:09)
[2018-05-03] MEDS: Folic Acid 1 MG TABLET PO SCH (08:09)
[2018-05-03] MEDS: Aspirin 81 MG TAB.CHEW PO SCH (08:09)
[2018-05-03] MEDS: Magnesium Oxide 400 MG TABLET PO SCH (08:10)
[2018-05-03] MEDS: FLUoxetine 20 MG CAPSULE PO SCH (08:10)
[2018-05-03] MEDS: Budesonide/Formoterol 160/4.5 1 PUFF INH IH SCH ×2 (08:10→20:47)
[2018-05-03] MEDS: Gabapentin 400 MG CAPSULE PO SCH ×4 (08:11→20:58)
[2018-05-03] MEDS: Tiotropium 18 MCG inhalation IH SCH (08:11)
[2018-05-03] MEDS: Multivit/Ca/Min/Fe/FA 1 TAB TABLET PO SCH (08:11)
[2018-05-03] MEDS: Insulin LISPRO 300 UNITS/3 ML VIAL SQ SCH ×7 (08:28→20:59)
[2018-05-03] MEDS: MORPHINE SULFATE PO SCH ×2 (09:00→21:14)
[2018-05-03] MEDS: NALTREXONE PO SCH ×2 (09:00→21:14)
--- NOTE | 2018-05-03 13:39 | Infectious Disease Progress No ---
Date of Encounter: 05/03/18 Time of Encounter: 11:30 - Assessment and Plan (1) Wound of right ankle Current Visit: Yes Status: Acute Location: Right ankle. Secondary to recent surgical procedure. According to the notes, there appeared to be purulent drainage and concerns for possible abscess underlying the surgical site. Right foot and ankle x-rays were negative for acute findings. ESR elevated at 121 and CRP 97. Blood cultures obtained 2 sets 04/25/18 are negative. Wound culture is negative. Podiatry consulted and following. Status post I & D with right talectomy. Operative note reviewed. Purulence noted intra-op. Intra-op cultures and pathology are negative. Podiatry is planning to take the patient to the OR tomorrow for external fixator placement. Wound care and activity restrictions per the podiatry team. Continue Ancef 2 grams IV Q8H. Duration of treatment depends on the clinical picture, but likely 4-6 weeks from the most recent surgery. Monitor renal function and for drug toxicity and dose adjust antibiotics. Qualifiers: Encounter type: initial encounter Qualified Code(s): S91.001A - Unspecified open wound, right ankle, initial encounter (2) Abscess of right foot Current Visit: No Status: Acute Location: Right ankle. Causative organism: MSSA. Status post I&D 04/12/18. Intraoperative cultures were positive for MSSA. Podiatry consult. Status post I & D 04/26/18. Intra-op cultures are negative. Continue antibiotics as above for now. (3) Osteomyelitis Current Visit: Yes Status: Acute Location: Right ankle. Causative organism: MSSA. Status post I&D 04/12/18. Intra-Op cultures were positive for MSSA. Pathology was positive for osteomyelitis. Discharged with plans to complete 6 weeks of IV Ancef, the patient had worsening of the clinical status. Podiatry consulted. Status post I & D with talectomy 04/26/[address] Harrington. Intra-op culture and pathology are negative. Continue antibiotics as above for now. Qualifiers: Osteomyelitis type: chronic, with draining sinus Osteomyelitis location: foot Laterality: right Qualified Code(s): M86.471 - Chronic osteomyelitis with draining sinus, right ankle and foot (4) Bacteremia Current Visit: No Status: Acute Causative organism: MSSA. Diagnosed on last hospital visit with blood cultures 2 out of 2 sets drawn 04/09/18. Repeat blood cultures drawn 04/11/18 were negative 2 sets. TTE was limited, so a ISRAEL was performed and was negative for endocarditis. Repeat blood cultures drawn 04/25/18 are negative 2 sets. No evidence of recurrence of bacteremia noted on exam. Repeat blood cultures are negative. Continue antibiotics as above for now. (5) Urinary retention Current Visit: Yes Status: Acute Has had a chronic indwelling Christensen catheter since his last hospitalization. Recommend follow-up with urology as an outpatient. (6) Asthma Current Visit: No Status: Chronic Qualifiers: Asthma severity: unspecified severity Asthma persistence: unspecified Asthma complication type: uncomplicated Qualified Code(s): J45.909 - Unspecified asthma, uncomplicated (7) CAD (coronary artery disease) Current Visit: No Status: Chronic Qualifiers: Coronary Disease-Associated Artery/Lesion type: [place] artery [place] vs. transplanted heart: [place] heart Associated angina: without angina Qualified Code(s): I25.10 - Atherosclerotic heart disease of [place] coronary artery without angina pectoris (8) Charcot ankle Current Visit: No Status: Chronic Qualifiers: Laterality: right Qualified Code(s): M14.671 - Charcot's joint, right ankle and foot (9) Diabetes mellitus Current Visit: Yes Status: Chronic Recommend aggressive glucose monitoring and control to promote wound healing and prevent re-infection. Management per the primary team. 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 No acute events noted overnight. Patient states overall he feels better today. Denies any fevers or rigors. Denies headache or neck pain. Denies chest pain, shortness of breath, or cough. Denies nausea, vomiting, or diarrhea. States last bowel movement was yesterday. Christensen catheter remains patent. He denies any oral thrush or any skin lesions. He reports mild pain at surgical site. Infect Dis PN-Objective Data - Labs CBC & Chem 7: 05/04/18 05:15 05/04/18 05:15 Labs: Laboratory Results - last 24 hr 05/02/18 05/02/18 05/02/18 07:07 11:55 16:25 WBC RBC Hgb Hct MCV MCH MCHC RDW Plt Count MPV Immature Gran % Seg Neutrophils % Lymphocytes % Monocytes % Eosinophils % Basophils % Neutrophils # Lymphocytes # Monocytes # Eosinophils # Basophils # Sodium Potassium Chloride Carbon Dioxide BUN Creatinine Est GFR ( Amer) Est GFR (Non-Af Amer) BUN/Creatinine Ratio Glucose POC Glucose 204 H 247 H 217 H Calculated Osmolality Calcium Phosphorus Magnesium 05/02/18 05/03/18 05/03/18 19:44 01:00 01:00 WBC 9.0 RBC 2.99 L Hgb 8.7 L Hct 27.9 L MCV 93.3 MCH 29.1 MCHC 31.2 L RDW 14.7 H Plt Count 258 MPV 10.8 Immature Gran % 1.3 Seg Neutrophils % 65.0 Lymphocytes % 18.1 Monocytes % 7.7 Eosinophils % 6.9 Basophils % 1.0 Neutrophils # 5.8 Lymphocytes # 1.6 Monocytes # 0.7 Eosinophils # 0.6 Basophils # 0.1 Sodium 132 L Potassium 4.1 Chloride 94 L Carbon Dioxide 32 H BUN 9 Creatinine 0.54 L Est GFR ( Amer) > 60 Est GFR (Non-Af Amer) > 60 BUN/Creatinine Ratio 17 Glucose 218 H POC Glucose 211 H Calculated Osmolality 279 L Calcium 8.2 L Phosphorus 3.2 Magnesium 1.7 Cultures: Cultures 04/26/18 16:16 Anaerobic Culture - Final Right Foot No anaerobes were recovered. 04/25/18 16:40 Blood Culture - Final Peripheral Venipuncture No growth. Final report. 04/25/18 16:40 Blood Culture - Final Peripheral Venipuncture No growth. Final report. 04/26/18 16:16 Surgical Biopsy Culture - Final Right Foot 04/25/18 16:22 Wound Culture - Final Right Ankle No pathogens isolated. 04/26/18 16:16 Acid Fast Stain - Final Right Foot Exam - Constitutional Vitals: Temp Pulse Resp BP Pulse Ox 98.0 F 85 18 142/69 94 05/03/18 10:58 05/03/18 10:58 05/03/18 10:58 05/03/18 10:58 05/03/18 10:58 General appearance: cooperative, morbidly obese, no acute distress - Head Head exam: Present: atraumatic, normal inspection, normocephalic - Eye Eye exam: Present: EOMI, normal appearance, PERRL Pupils: Present: normal accommodation - ENT ENT exam: Present: mucous membranes moist - Neck Neck exam: Present: normal inspection - Respiratory Respiratory exam: Present: CTAB. Absent: rales, respiratory distress, rhonchi, wheezes - Cardiovascular Cardiovascular exam: Present: RRR, +S1, +S2 - GI/Abdominal GI/Abdominal exam: Present: distended (obese), normal bowel sounds, soft. Absent: tenderness Additional comments: Christensen catheter noted to be draining clear yellow urine. - Extremities Exam Extremities exam: Absent: normal inspection (Right ankle dressing/splint C/D/I.) - Neurological Exam Neurological exam: Present: alert, oriented X3, no focal deficits - Psychiatric Psychiatric exam: Present: normal affect, normal mood - Skin Skin exam: Present: dry, intact, normal color, warm Consult Discharge Plan - Plan Referrals: Myron Henderson [Primary Care Provider] - - Attending Attestation I examined this patient and my medical decision-making was reviewed with the Resident Physician. I agree with the documented findings, disposition and treatment plan as described except to the extent set forth below.
[2018-05-03] MEDS: *HR* OxyCODONE Immed Rel 5 MG TABLET PO PRN (17:24)
--- NOTE | 2018-05-03 19:51 | Internal Med Progress Note ---
Hospitalist Progress Note - Encounter Date of Encounter: 05/03/18 Time of Encounter: 19:49 - Subjective Interval History: Pt states RLE pain controlled. Denies fever, chills, N/V, diarrhea. Denies CP or SOB. - Exam Vitals: Temp Pulse Resp BP Pulse Ox 98.1 F 83 20 110/60 96 05/03/18 19:38 05/03/18 19:38 05/03/18 19:38 05/03/18 19:38 05/03/18 19:38 Exam: Gen: VSS, Not in distress Neuro: AAOX3, no focal deficits, no HEENT: Moist oral mucosa, conjunctiva is pink, sclerae is white. No cyanosis. Chest: Clear to auscultation bilaterally with no added sounds. Heart: S1, S2 only. No murmurs gallops or rubs. Abdomen: Obese, nontender, no palpably enlarged organs, bowel sounds present in all quadrants. Extremities: Bilateral pitting pedal edema. R feet in clean wound dressing - Assessment and Plan (1) Osteomyelitis of ankle, right, acute Current Visit: No Status: Acute Assessment and Plan: Right ankle osteomyelitis diagnosed on MRI in previous admission. Causative organism MSSA s/p I and D 04/12/18 , discharged to nursing home facility to continue IV Ancef. However, presented with worsening foot infection with purulent discharge . Repeat I&D with talectomy done by Dr. Tanner 04/26/18 . Blood and Wound cultures negative to date Seen by ID and discontinued Vancomycin and Zosyn. Infectious disease recommending ancef 2 grams IV Q8H for 4-6 weeks. Podiatry planning external fixator device with antibiotic spacer to be placed later this week per . Surgery possibly on or Tue05/04/2018 or 05/05/2018. (2) Diabetes mellitus Current Visit: Yes Status: Chronic Assessment and Plan: Resume home regimen inulin at [place]. Dose can be adjusted by [place] physician as deemed necessary. Goal FS is 140-180 (3) Hypertension Current Visit: No Status: Chronic Assessment and Plan: Pt can resume Imdur 30 mg PO QD, Hyzaar, and Metoprolol. Held on admission due to low BP. (4) Morbid obesity Current Visit: Yes Status: Chronic Assessment and Plan: Life style modification such as diet and exercise recommended. (5) Hyponatremia Current Visit: Yes Status: Acute Assessment and Plan: Improved with IVF, Na 135 at discharge up from 131 Continue to monitor (6) Urinary retention Current Visit: Yes Status: Acute Assessment and Plan: has had shah since last discharge- cont will need follow up with urology at discharge (7) Abscess of right foot Current Visit: Yes Status: Acute Assessment and Plan: Causative organism: MSSA. Status post I&D 04/12/18 and intraoperative cultures were positive for MSSA. Podiatry consulted and status post I & D 04/26/18 and intra-op cultures are negative. Continue antibiotics as above for now. ID discontinuing Zosyn and vancomycin. (8) Bacteremia Current Visit: No Status: Acute Causative organism: MSSA. Diagnosed on last hospital visit with blood cultures 2 out of 2 sets drawn 04/09/18. Repeat blood cultures drawn 04/11/18 were negative 2 sets. TTE was limited, so a ISRAEL was performed and was negative for endocarditis. Repeat blood cultures drawn 04/25/18 are NGTD 2 sets. No evidence of recurrence of bacteremia noted on exam. Repeat blood cultures are negative. Continue antibiotics as above for now. (9) Anemia Current Visit: Yes Status: Acute Assessment and Plan: Patient with chronic anemia with baseline between 9 and 10. Drop in hemoglobin likely due to blood loss from surgery. Given 1 unit of RBC. Repeat hemoglobin 8.8 at discharge. Continue to monitor, may require red blood cell transfusion for hemoglobin less than 7 per [place] physician discretion. (10) BROCK (obstructive sleep apnea) Current Visit: Yes Status: Chronic Assessment and Plan: cont CPAP (11) Asthma Current Visit: Yes Status: Chronic Assessment and Plan: stable at this time cont bronchodilators and oxygen as needed DVT Prophylaxis: Lovenox - Summary of Assessment and Plan Summary of Assessment and Plan: Mr. Newsome is a 63 year old male with past medical history of COPD, diabetes, hyperlipidemia, CAD, s/p CABG, history of osteomyelitis of his right ankle. He has had multiple hospitalizations for his wound to his right ankle discharge December 2017 on antibiotics also discharged 04/17/2018 again for sepsis and IV antibiotics. On his last admission patient was seen by infectious disease was found to have osteomyelitis of his right ankle causative organism MSSA. Patient discharged to [facility] with continued IV Ancef for 6 week course. During the previous admission he did undergo transesophageal echocardiogram which did not show any endocarditis. He was receiving wound care at the [facility] and he went for a follow-up today with podiatry. While in the barrel straightener's office his wound did open with thick purulent drainage. He was sent to the ER for evaluation. Lab work was completed which did show some hyponatremia as well as hypokalemia. He does have a low-grade temperature 99.5 his systolic is on the low side at 100. Podiatry consulted and patient was admitted for possible I&D in a.m. Wound cultures and blood cultures obtained and pt treated with Zosyn and add vancomycin. - Time Spent with Patient Total time spent is greater than 50% in coordination of care (as documented) at patient's floor/unit and/or counseling patient: less than 15 minutes Plan of Care Discussed with: patient Internal Medicine: Result - Labs CBC & Chem 7: 05/03/18 01:00 05/03/18 01:00 Labs: Short CBC 05/03/18 Range/Units 01:00 WBC 9.0 (4.3-11.1) K/mcL Hgb 8.7 L (12.9-16.9) g/dL Hct 27.9 L (37.5-50.1) % Plt Count 258 (140-400) K/mcL Neutrophils # 5.8 (1.6-8.9) K/mcL BMP 05/03/18 01:00 Sodium 132 L Potassium 4.1 Chloride 94 L Carbon Dioxide 32 H BUN 9 Creatinine 0.54 L Glucose 218 H Calcium 8.2 L - ABG Interpretation ABG results: PT/INR, D-dimer PT 13.3 Seconds (9.4-12.1) H 04/25/18 13:52 Consult Discharge Plan - Plan Referrals: Myron Henderson [Primary Care Provider] -
[2018-05-03] MEDS: Insulin DETEMIR 100 UNIT/ML X5UNITS SQ SCH (20:59)
--- NOTE | 2018-05-03 22:18 | Anesthesia Evaluation PreOp ---
<Rissa Mora - Last Filed: 05/03/18 22:16> Date of Encounter: 05/03/18 Time of Encounter: 22:17 - Past History Planned Operation: R Tib calcaneal fusion and Rx Fix Cardiac History: NM, HTN, Hyperlipidemia, Arrhythmia (afib), Cardiac Surgery ( CABG x 3 1998), Cardiac Stent (x1) Pulmonary History: Former smoker, COPD, BROCK Dx (CPAP 11) STRATEGY LEAD History: Denies Any Significant HX Other Medical History: Diabetes Type II, Other (BMI 43, anemia) Anesthesia History: No Prior Anesthetic Complications, Past Anesthesia (CABG, I and D R foot) Alcohol Use: none Drug use: none Medications and Allergies Amlodipine Besylate 10 mg PO DAILY 07/11/17 [History] Aspirin 81 mg PO DAILY 07/11/17 [History] Atorvastatin Calcium 40 mg PO HS 07/11/17 [History] Clopidogrel [Plavix] 75 mg PO DAILY 07/11/17 [History] EPINEPHrine [Epipen] 0.3 mg IM ONCE PRN 07/11/17 [History] Fluticasone/Salmeterol [Advair Hfa 230-21 Mcg Inhaler] 2 puff IH BID 07/11/17 [ History] Folic Acid 1 mg PO DAILY 07/11/17 [History] Gabapentin [Neurontin] 800 mg PO QID 07/11/17 [History] Nitroglycerin [Nitrostat] 0.4 mg SL Q5M PRN MDD [id number] call 911 07/11/17 [ History] Omeprazole [PriLOSEC] 20 mg PO DAILY 07/11/17 [History] Oxygen 2 l NS HS 07/11/17 [History] Potassium Chloride [Klor-Con 10] 10 meq PO DAILY 07/11/17 [History] Empagliflozin [Jardiance] 10 mg PO DAILY 01/20/18 [History] FLUoxetine HCl [Prozac] 60 mg PO DAILY 01/20/18 [History] Furosemide [Lasix] 80 mg PO BID 01/20/18 [History] Montelukast [Singulair] 10 mg PO DAILY 01/20/18 [History] Pramlintide Acetate [Symlinpen 120] 120 mg SQ TIDWM 01/20/18 [History] Albuterol Neb [Proventil Neb] 2.5 mg IH Q4HR PRN 04/11/18 [History] Isosorbide MONOnitrate (24 HR) [Imdur] 30 mg PO DAILY 04/11/18 [History] Losartan/Hydrochlorothiazide [Hyzaar 100-12.5 Tablet] 1 tab PO DAILY 04/11/18 [ History] Magnesium Oxide [Magnesium] 400 mg PO DAILY 04/11/18 [History] Multivitamin [One Daily Multivitamin] 1 tab PO DAILY 04/11/18 [History] [place]-3/Dha/Epa/Fish Oil [Fish Oil 1,000 mg Softgel] 1 cap PO DAILY 04/11/18 [ History] Morphine Sulfate/Naltrexone [Embeda ER 80-3.2 mg Capsule] 1 cap PO BID 5 Days # 10 cap.er.po 04/17/18 [Rx] Collagenase Oint [Santyl] 1 appl TP DAILY 04/25/18 [History] Insulin Regular U-500 [HumuLIN R U-500] 25 unit SQ TID 04/25/18 [History] Metoprolol Succinate [Toprol Xl] 50 mg PO DAILY 04/25/18 [History] Omalizumab [XOLAIR (For Outpatient Infusion)] 300 mg SQ Q2W 04/25/18 [History] Tiotropium [Spiriva] 18 mcg IH DAILY 04/25/18 [History] 3 Allergy/AdvReac Type Severity Reaction Status Date / Time dapagliflozin [From [facility]] Allergy Hives Verified 01/20/18 19:08 naphazoline Allergy Hives Verified 01/20/18 19:08 cath DYE Allergy Hives Uncoded 01/20/18 19:08 - Meds/Allergy Pre-op Review Medications Reviewed: Yes Allergies Reviewed: Yes Beta Blockers on Current Med List: No Anesthesia Results - Labs 05/03/18 01:00 05/03/18 01:00 - Imaging EKG: report reviewed (Interpretive Statements SINUS RHYTHM WITH FIRST DEGREE AV BLOCK NONSPECIFIC T-WAVE ABNORMALITY Electronically Signed On 04-30-2018 9:27:16 EDT by Edwin Tse) Additional studies: ISRAEL 04/17/18: Impressions: LVEF 55-60%. Normal LV size and function. Right ventricle was normal in size and systolic function. No pulmonary hypertension. No significant valvular dysfunction. No evidence of endocarditis. Anesthesia Exam Vital Signs/O2 Sat, Most Current Temp Pulse Resp BP Pulse Ox 98.1 F 83 14 110/60 98 05/03/18 19:38 05/03/18 19:38 05/03/18 20:47 05/03/18 19:38 05/03/18 20:47 Weight: 121kg NPO (# of Hours): MN Anesthesia Assess/Plan ASA Score: 3 Modified Jluis Scale for Level of Consciousness: Cooperative, oriented, and tranquil Anesthetic Plan: General, Regional Monitoring Plan: Standard Monitors Recovery Plan: PACU <Derrek Styles - Last Filed: 05/04/18 10:44> Date of Encounter: 05/04/18 Anesthesia Results - Labs 05/04/18 05:15 05/04/18 05:15 Anesthesia Exam Vital Signs/O2 Sat/Glucose, Most Recent Temp Pulse Resp BP Pulse Ox 98.2 F 89 16 123/57 94 05/04/18 06:52 05/04/18 06:52 05/04/18 07:24 05/04/18 06:52 05/04/18 09:19 Blood Glucose* 152 - HEENT Pupil (Motor): EOMI Mallampati: II Teeth: Edentulous Oral Opening: Greater than 3 - STRATEGY LEAD LOC: Oriented STRATEGY LEAD Motor: Normal RUE, Normal LUE, Normal RLE, Normal LLE, Normal Face STRATEGY LEAD Sensory: Normal: RUE, LUE, Face, Deficit: RLE, LLE - Cardiac Rhythm: Regular Murmur: None - Pulmonary Breath Sounds: bilateral Clear Respiratory Effort: Symmetrical
[2018-05-04] MEDS: *HR* Enoxaparin 40 MG/0.4 ML SYRINGE SQ SCH (05:09)
[2018-05-04 05:29] LABS: Basophils # 0.1 K/mcL (0.0-0.2); Eosinophils # 0.7 K/mcL (0.0-0.6); Eosinophils % 8.8 %; Hematocrit 28.6 % (37.5-50.1); Immature Granulocytes % 1.3 % (0-4); Lymphocytes # 1.4 K/mcL (0.6-4.6); Lymphocytes % 18.6 %; Mean Corpuscular HGB Conc 31.5 g/dL (31.6-35.5); Mean Corpuscular Hemoglobin 29.3 pg (28.0-33.3); Mean Corpuscular Volume 93.2 fL (83.0-100.0); Mean Platelet Volume 10.6 fL (9.4-12.4); Monocytes # 0.6 K/mcL (0.0-1.3); Monocytes % 8.2 %; Neutrophils # 4.8 K/mcL (1.6-8.9); Platelet Count 245 K/mcL (140-400); Red Blood Count 3.07 M/mcL (4.19-5.50); Red Cell Distribution Width 14.9 % (11.5-14.5); Segmented Neutrophils % 62.1 %
[2018-05-04 05:46] LABS: BUN/Creatinine Ratio 17 (6-26); Blood Urea Nitrogen 9 mg/dL (8-23); Calcium 8.5 mg/dL (8.6-10.3); Carbon Dioxide 29 mEq/L (23-29); Chloride 98 mEq/L (98-107); Glucose 145 mg/dL (70-105); Osmolality,Calculated 281 (280-300); Phosphorous 4.2 mg/dL (2.7-4.5); Potassium 4.4 mEq/L (3.5-5.1); Sodium 135 mEq/L (136-145); eGFR For Non-African Americans > 60 (> 60)
[2018-05-04] MEDS: Budesonide/Formoterol 160/4.5 1 PUFF INH IH SCH ×2 (07:23→21:43)
[2018-05-04] MEDS: Tiotropium 18 MCG inhalation IH SCH (07:24)
--- NOTE | 2018-05-04 07:49 | Podiatry Progress Note ---
Date of Encounter: 05/04/18 Time of Encounter: 07:10 - Assessment and Plan (1) Osteomyelitis Current Visit: Yes Status: Acute I had a thorough review with the patient this morning regarding his surgery consisting of a tibiocalcaneal fusion to try to stabilize his foot to his leg due to his right foot Charcot foot/ankle with use of external fixation and bone graft products and/or bone cement. Nature of this procedure, risks versus benefits potential complications consequences of surgery and his condition discussed at length included but not limited to infection bleeding swelling numbness tingling pin tract infection lack of procedure to produce desired outcome liver disease kidney disease pulmonary embolism blood clot heart attack need for hardware removal reaction to fixation development of wounds wound healing problems delayed or nonhealing of bone persistent deformity or recurrence of deformity and inability to walk loss of function need for further surgery etc. Did discuss with patient that he is high risk for limb loss with his deformity and open wounds. Discussed it is imperative that he maintains good glycemic control to try to reduce the risk of complications he could develop. We discussed course of recovery he understood that the frame would have to come off in the operating room at a later date and may be on for up to 12 weeks or more. He was also made aware that it would have to be nonweightbearing during this time and he may not walk on the frame. All of his questions were answered and the informed consent was signed. Remain NPO, OR later today. Qualifiers: Osteomyelitis type: chronic, with draining sinus Osteomyelitis location: foot Laterality: right Qualified Code(s): M86.471 - Chronic osteomyelitis with draining sinus, right ankle and foot (2) Charcot foot due to diabetes mellitus Current Visit: No Status: Chronic see above Subjective Principal diagnosis: Osteomyelitis right ankle Objective - Vital Signs Vital Signs: Vital Signs Temp Pulse Resp BP Pulse Ox 05/04/18 06:52 98.2 F 89 16 123/57 94 05/04/18 03:19 98.3 F 88 22 143/69 95 05/04/18 00:18 15 98 05/03/18 23:07 97.9 F 93 19 145/79 97 05/03/18 20:47 14 98 05/03/18 19:38 98.1 F 83 20 110/60 96 05/03/18 16:30 97.8 F 82 16 144/80 98 05/03/18 15:35 97.7 F 79 18 143/74 97 05/03/18 10:58 98.0 F 85 18 142/69 94 05/03/18 08:10 18 96 Intake and Output 05/03/18 05/03/18 05/04/18 15:59 23:59 07:59 Intake Total 2860 / 2860 2520 / 2520 0 / 0 Output Total 4275 / 4275 4750 / 4750 4150 / 4150 Balance -1415 / -1415 -2230 / -2230 -4150 / -4150 Intake: IV Fluids 300 / 300 Ancef 2,000 MG In 0.9 % Sodium 200 / 200 Chloride 100 ML @ 200 mls/hr IVPB Q8H JIMMY Rx#:[id number] Oral 2860 / 2860 480 / 480 0 / 0 Free Water 1740 / 1740 Output: Catheter 4275 / 4275 4750 / 4750 4150 / 4150 Other: Meal Lunch Dinner Percent of Meal Consumed 100% 100% Weight 122.1 kg Blood Glucose* 242 145 152 - Lab Result Diagrams: 05/04/18 05:15 05/04/18 05:15 Labs: Abnormal lab results RBC 3.07 M/mcL (4.19-5.50) L 05/04/18 05:15 Hgb 9.0 g/dL (12.9-16.9) L 05/04/18 05:15 Hct 28.6 % (37.5-50.1) L 05/04/18 05:15 MCHC 31.5 g/dL (31.6-35.5) L 05/04/18 05:15 RDW 14.9 % (11.5-14.5) H 05/04/18 05:15 Eosinophils # 0.7 K/mcL (0.0-0.6) H 05/04/18 05:15 ESR 121 mm/hr (0-10) H 04/25/18 13:52 PT 13.3 Seconds (9.4-12.1) H 04/25/18 13:52 Sodium 135 mEq/L (136-145) L 05/04/18 05:15 Creatinine 0.53 mg/dL (0.70-1.30) L 05/04/18 05:15 Glucose 145 mg/dL (70-105) H 05/04/18 05:15 POC Glucose 157 mg/dL (70-99) H 05/03/18 16:35 Calcium 8.5 mg/dL (8.6-10.3) L 05/04/18 05:15 C-Reactive Protein 97 mg/L (Less than 10) H 04/25/18 13:52 Vancomycin Trough 16 mcg/mL (5-10) H 04/30/18 03:58 Microbiology, Last 48 Hours 04/26/18 16:16 Anaerobic Culture - Final Right Foot No anaerobes were recovered. Consult Discharge Plan - Plan Referrals: Myron Henderson [Primary Care Provider] -
[2018-05-04] MEDS: Insulin LISPRO 300 UNITS/3 ML VIAL SQ SCH ×6 (08:57→16:51)
[2018-05-04] MEDS: Folic Acid 1 MG TABLET PO SCH (08:57)
[2018-05-04] MEDS: Magnesium Oxide 400 MG TABLET PO SCH (08:57)
[2018-05-04] MEDS: FLUoxetine 20 MG CAPSULE PO SCH (08:58)
[2018-05-04] MEDS: Multivit/Ca/Min/Fe/FA 1 TAB TABLET PO SCH (08:58)
[2018-05-04] MEDS: NALTREXONE PO SCH ×2 (09:13→20:23)
[2018-05-04] MEDS: Aspirin 81 MG TAB.CHEW PO SCH (09:13)
[2018-05-04] MEDS: Isosorbide MONOnitrate (24 HR) 30 MG TAB.ER.24H PO SCH (09:13)
[2018-05-04] MEDS: Gabapentin 400 MG CAPSULE PO SCH ×4 (09:13→20:23)
[2018-05-04] MEDS: MORPHINE SULFATE PO SCH ×2 (09:13→20:23)
[2018-05-04] MEDS ORDERED: *HR* Midazolam HCl 2 MG/2 ML VIAL ONE (09:45)
[2018-05-04] MEDS: Ondansetron 4 MG/2 ML VIAL IVP PRN (10:23)
[2018-05-04] MEDS ORDERED: *HR* FentaNYL (PF) 100 MCG/2 ML VIAL ONE (10:38)
[2018-05-04] MEDS ORDERED: Propofol 500 MG/50 ML INFUS..BTL ONE ×3 (10:45→12:50)
[2018-05-04] MEDS ORDERED: Lidocaine -MPF 2% 2 ML VIAL ONE (10:45)
[2018-05-04] MEDS ORDERED: Acetaminophen IV 1,000 MG/100 ML INFUS..BTL ONE (11:08)
[2018-05-04] MEDS ORDERED: KETAMINE HCL 50 MG/ML SYRINGE IV ONE (11:08)
[2018-05-04] MEDS ORDERED: *HR* PHENYLEPHRINE 1,000 MCG/10 ML SYRINGE IVP ONE (11:59)
[2018-05-04] MEDS ORDERED: Bupivacaine/EPI 1:200k 0.5%PF 30 ML VIAL ONE (13:08)
[2018-05-04] MEDS ORDERED: Nitroglycerin 0.4 MG TAB.SUBL SL PRN (14:23)
[2018-05-04] MEDS ORDERED: Ondansetron 4 MG/2 ML VIAL IVP PRN (14:23)
[2018-05-04] MEDS ORDERED: Dextrose Gel 15 GM/37.5 ML TUBE PO PRN ×2 (14:23)
[2018-05-04] MEDS ORDERED: *HR* HYDROcodone/Acet 5/325 mg TABLET PO PRN (14:23)
[2018-05-04] MEDS ORDERED: Acetaminophen 325 MG TABLET PO PRN (14:23)
[2018-05-04] MEDS ORDERED: Albuterol 2.5 MG/3 ML NEBULIZER IH PRN (14:23)
[2018-05-04] MEDS ORDERED: Naloxone 0.4 MG/ML INJ IVP PRN (14:23)
[2018-05-04] MEDS ORDERED: D5% in Water 1,000 ML IVC PRN (14:23)
[2018-05-04] MEDS ORDERED: *HR* Dextrose 50 % in Water (Syg) 50 ML SYRINGE IVP PRN (14:23)
[2018-05-04] MEDS: *HR* OxyCODONE Immed Rel 5 MG TABLET PO PRN (16:53)
--- NOTE | 2018-05-04 20:37 | Internal Med Progress Note ---
Hospitalist Progress Note - Encounter Date of Encounter: 05/04/18 Time of Encounter: 20:35 - Subjective Interval History: Pt states RLE pain controlled. Denies fever, chills, N/V, diarrhea. Denies CP or SOB. - Exam Vitals: Temp Pulse Resp BP Pulse Ox 97.5 F L 88 16 93/68 93 05/04/18 18:33 05/04/18 18:33 05/04/18 18:33 05/04/18 18:33 05/04/18 18:33 Exam: Gen: VSS, Not in distress Neuro: AAOX3, no focal deficits, no HEENT: Moist oral mucosa, conjunctiva is pink, sclerae is white. No cyanosis. Chest: Clear to auscultation bilaterally with no added sounds. Heart: S1, S2 only. No murmurs gallops or rubs. Abdomen: Obese, nontender, no palpably enlarged organs, bowel sounds present in all quadrants. Extremities: Bilateral pitting pedal edema. R feet in clean wound dressing - Assessment and Plan (1) Osteomyelitis of ankle, right, acute Current Visit: No Status: Acute Assessment and Plan: Right ankle osteomyelitis diagnosed on MRI in previous admission. Causative organism MSSA s/p I and D 04/12/18 , [facility] to continue IV Ancef. However, presented with worsening foot infection with purulent discharge . Repeat I&D with talectomy done by Dr. Tanner 04/26/18 . Blood and Wound cultures negative to date Seen by ID and discontinued Vancomycin and Zosyn. Infectious disease recommending ancef 2 grams IV Q8H for 4-6 weeks. Podiatry planning external fixator device with antibiotic spacer to be placed later this week per . S/p surgery 05/04/2018. Possible DC 05/05/2018 (2) Diabetes mellitus Current Visit: Yes Status: Chronic Assessment and Plan: Resume home regimen insulin at [place]. Increased basal insulin osorio 15 units QHS. Dose can be adjusted by [place] physician as deemed necessary. Goal FS is 140-180 (3) Hypertension Current Visit: No Status: Chronic Assessment and Plan: Pt can resume Imdur 30 mg PO QD, still holding Hyzaar, and Metoprolol. Held on admission due to low BP. (4) Morbid obesity Current Visit: Yes Status: Chronic Assessment and Plan: Life style modification such as diet and exercise recommended. (5) Hyponatremia Current Visit: Yes Status: Acute Assessment and Plan: Improved with IVF, Na 135 at discharge up from 131 Continue to monitor (6) Urinary retention Current Visit: Yes Status: Acute Assessment and Plan: has had shah since last discharge- cont will need follow up with urology at discharge (7) Abscess of right foot Current Visit: Yes Status: Acute Assessment and Plan: Causative organism: MSSA. Status post I&D 04/12/18 and intraoperative cultures were positive for MSSA. Podiatry consulted and status post I & D 04/26/18 and intra-op cultures are negative. Continue antibiotics as above for now. ID discontinuing Zosyn and vancomycin. (8) Bacteremia Current Visit: No Status: Acute Causative organism: MSSA. Diagnosed on last hospital visit with blood cultures 2 out of 2 sets drawn 04/09/18. Repeat blood cultures drawn 04/11/18 were negative 2 sets. TTE was limited, so a ISRAEL was performed and was negative for endocarditis. Repeat blood cultures drawn 04/25/18 are NGTD 2 sets. No evidence of recurrence of bacteremia noted on exam. Repeat blood cultures are negative. Continue antibiotics as above for now. (9) Anemia Current Visit: Yes Status: Acute Assessment and Plan: Patient with chronic anemia with baseline between 9 and 10. Drop in hemoglobin likely due to blood loss from surgery. Given 1 unit of RBC. Repeat hemoglobin 9.0. Continue to monitor, may require red blood cell transfusion for hemoglobin less than 7 per [place] physician discretion. (10) BROCK (obstructive sleep apnea) Current Visit: Yes Status: Chronic Assessment and Plan: cont CPAP (11) Asthma Current Visit: Yes Status: Chronic Assessment and Plan: stable at this time cont bronchodilators and oxygen as needed DVT Prophylaxis: Lovenox - Summary of Assessment and Plan Summary of Assessment and Plan: Mr. Newsome is a 63 year old male with past medical history of COPD, diabetes, hyperlipidemia, CAD, s/p CABG, history of osteomyelitis of his right ankle. He has had multiple hospitalizations for his wound to his right ankle discharge December 2017 on antibiotics also discharged 04/17/2018 again for sepsis and IV antibiotics. On his last admission patient was seen by infectious disease was found to have osteomyelitis of his right ankle causative organism MSSA. Patient discharged to [facility] with continued IV Ancef for 6 week course. During the previous admission he did undergo transesophageal echocardiogram which did not show any endocarditis. He was receiving wound care at the [facility] and he went for a follow-up today with podiatry. While in the green jobs trainer's office his wound did open with thick purulent drainage. He was sent to the ER for evaluation. Lab work was completed which did show some hyponatremia as well as hypokalemia. He does have a low-grade temperature 99.5 his systolic is on the low side at 100. Podiatry consulted and patient was admitted for possible I&D in a.m. Wound cultures and blood cultures obtained and pt treated with Zosyn and add vancomycin. - Time Spent with Patient Total time spent is greater than 50% in coordination of care (as documented) at patient's floor/unit and/or counseling patient: less than 15 minutes Plan of Care Discussed with: patient Internal Medicine: Result - Labs CBC & Chem 7: 05/04/18 05:15 05/04/18 05:15 Labs: Short CBC 05/04/18 Range/Units 05:15 WBC 7.7 (4.3-11.1) K/mcL Hgb 9.0 L (12.9-16.9) g/dL Hct 28.6 L (37.5-50.1) % Plt Count 245 (140-400) K/mcL Neutrophils # 4.8 (1.6-8.9) K/mcL BMP 05/04/18 05:15 Sodium 135 L Potassium 4.4 Chloride 98 Carbon Dioxide 29 BUN 9 Creatinine 0.53 L Glucose 145 H Calcium 8.5 L - ABG Interpretation ABG results: PT/INR, D-dimer PT 13.3 Seconds (9.4-12.1) H 04/25/18 13:52 - Impressions Impressions Ankle X-Ray 05/04/18 11:48 IMPRESSION: Fluoroscopic images performed for the purpose of guidance of surgical procedure. Please see performing physician notes for full detail. D/ / 05/04/2018 13:38:46 Owen Chaves MD / reji Interpreting Provider: Owen Chaves MD Fluoroscopy 05/04/18 11:48 IMPRESSION: Fluoroscopic images performed for the purpose of guidance of surgical procedure. Please see performing physician notes for full detail. D/ / 05/04/2018 13:38:46 Owen Chaves MD / reji Interpreting Provider: Owen Chaves MD Consult Discharge Plan - Plan Referrals: Myron Henderson [Primary Care Provider] -
[2018-05-04] MEDS ORDERED: Insulin DETEMIR 100 UNIT/ML X5UNITS SQ SCH (21:00)
[2018-05-04] MEDS ORDERED: Insulin LISPRO 300 UNITS/3 ML VIAL SQ SCH (21:00)
[2018-05-05] MEDS: *HR* OxyCODONE Immed Rel 5 MG TABLET PO PRN ×2 (00:31→12:39)
--- NOTE | 2018-05-05 01:04 | Operative Note ---
Date of procedure: 05/04/18 Pre-op diagnosis: right foot/ankle charcot Post-op diagnosis: same Procedure: Right tibiocalcaneal arthrodesis Application of external fixator Implants: S.E.A.L. multiplane external fixation frame Complications: none Anesthesia: MAC Local Anesthetics: 0.5% Sensorcaine HCL with Epinephrine 1:200,000 SubQ (cc) Surgeon: Segundo Harrington Was there an housekeeping assistant present: No Estimated blood loss (cc): 150 Specimen: fibula bone-path, ulcer-micro (error by litigation secretary-specimen degraded) Condition: stable Disposition: PACU Procedure in Detail: Indications: 63 -year-old male with right foot/ankle Charcot limb deformity with ulcerations lateral and of the anterior ankle. Patient underwent previous incision and drainage as well as talectomy due to infection. He no longer has purulent drainage from the lateral wound. Patient's foot/ankle is unstable and proceeding with an attempt at limb salvage after having the nature of the above procedure, risks versus benefits potential complications and consequences of his condition and surgery discussed at length. No guarantees were made as to the outcome and it was explained to him that he is high risk for limb loss and that he could require an amputation of his leg. It was explained that having surgery is no guarantee and he still has a significant chance that he loses his leg despite having multiple surgeries and/or gets a recurrence of the deformity or failure of the bone to fuse together and stabilize his leg. All of his questions have been answered and the informed consent signed. Patient was taken from the preoperative holding area into the operating room placed on the operating room table in the supine position. After anesthesia the right lower extremity was scrubbed prepped and draped in the usual sterile fashion. A thigh tourniquet was applied and inflated to 300 mmHg. The perfusion team had taken the patient's blood and spun it down into platelet rich plasma (PRP). The following procedures then began. Right tibiocalcaneal arthrodesis. Attention was directed to the lateral aspect of the patient's right foot/ankle. #10 blade was used to make an incision full- thickness over the distal aspect of the fibula traversing across the lateral aspect of the patient's ankle and foot. Hypergraphia granular tissue from the wound was excised. Soft tissue retracted and the fibula tibia and calcaneus were identified. To gain access to the tibial plafond and the distal aspect of the fibula was cut with the sagittal saw and removed. This bone was sent to pathology. Deep tissue ulceration tissue which was removed was also sent to microbiology. The with the soft tissue retracted the tibial plafond and calcaneal surfaces were identified. The sagittal saw and flexible chisel were used to remove the cartilage from the tibial plafond. There was bleeding cancellus bone present. The flexible chisel and curet were used to remove cartilage from the calcaneus. The calcaneus was also drilled and bleeding bone was present. The sagittal saw was used to remodel the tibial bone to fit into the calcaneus for fusion. A 3.2 mm Steinmann pin was thrown from the inferior aspect of the calcaneus across the tibiotalar fusion zone to hold the arthrodesis site into alignment. C-arm was utilized to confirm position and alignment and apposition of the fusion zone. With the foot in a reduced position and the foot under the leg and tibial tuberosity and patella and aligned with the foot the next procedure was performed. Application of multiplane external fixator. The external fixator was assembled and applied to the patient's right lower extremity being able to fit two fingers circumferentially around his leg and foot. The first wire was thrown distally in the calcaneus and tensioned appropriately. Next attention was directed to the proximal ring two half pins were thrown into the tibia securing his leg to the frame. Two wires were then thrown in the middle ring and tensioned appropriately. A wire was then thrown from lateral to medial through the calcaneus and arched upwards by building off the frame to provide compression the the tibiocalcaneal fusion zone and tensioned. An wire was then thrown across the metatarsals and tensioned appropriately to maintain reduced position of the forefoot relative to the rear foot. The patient's right lower extremity was in a reduced position compared to pre-op and stabilized with the multiplane external fixator. The motor units were then turned to provide added compression across the tibiocalcaneal fusion zone. Marcaine with epinephrine was then injected around the pin sites. The skin was reapproximated using 0- Prolene around the pin sites and retention sutures placed into the lateral foot/ ankle wound. Xeroform was applied around all pin sites as well as 4x4 gauze, abdominal pads, ludmila, kerlix and DARSHAN wraps. PRP was applied onto and through the lateral wound. The tourniquet was deflated prior to application of the bandages and adequate hemostasis was present with Surgicel and Gelfoam and the wound and there was no active bleeding. Calcium alginate was applied to the anterior and lateral wounds Patient tolerated the anesthesia and the procedure well and was escorted to the recovery room with vital signs stable and vascular status intact to the right foot. Instructed to remain non-wb to the right lower extremity. Patient will return to the floor.
[2018-05-05 01:06] LABS: Basophils # 0.1 K/mcL (0.0-0.2); Eosinophils # 0.6 K/mcL (0.0-0.6); Eosinophils % 6.5 %; Hematocrit 27.6 % (37.5-50.1); Hemoglobin 8.6 g/dL (12.9-16.9); Immature Granulocytes % 1.2 % (0-4); Lymphocytes # 1.4 K/mcL (0.6-4.6); Lymphocytes % 14.8 %; Mean Corpuscular HGB Conc 31.2 g/dL (31.6-35.5); Mean Corpuscular Hemoglobin 28.8 pg (28.0-33.3); Mean Corpuscular Volume 92.3 fL (83.0-100.0); Mean Platelet Volume 10.8 fL (9.4-12.4); Monocytes # 0.9 K/mcL (0.0-1.3); Monocytes % 9.2 %; Neutrophils # 6.3 K/mcL (1.6-8.9); Platelet Count 253 K/mcL (140-400); Red Blood Count 2.99 M/mcL (4.19-5.50); Red Cell Distribution Width 15.1 % (11.5-14.5); Segmented Neutrophils % 67.3 %
[2018-05-05 01:31] LABS: BUN/Creatinine Ratio 18 (6-26); Blood Urea Nitrogen 10 mg/dL (8-23); Calcium 8.2 mg/dL (8.6-10.3); Carbon Dioxide 29 mEq/L (23-29); Chloride 95 mEq/L (98-107); Glucose 162 mg/dL (70-105); Osmolality,Calculated 273 (280-300); Phosphorous 3.8 mg/dL (2.7-4.5); Sodium 130 mEq/L (136-145); eGFR For Non-African Americans > 60 (> 60)
[2018-05-05] MEDS ORDERED: *HR* Enoxaparin 40 MG/0.4 ML SYRINGE SQ SCH (06:00)
--- NOTE | 2018-05-05 07:50 | Podiatry Progress Note ---
Date of Encounter: 05/05/18 Time of Encounter: 06:55 - Assessment and Plan (1) Osteomyelitis Status: Acute s/p Tibiocalcaneal fusion and application of external fixator. denies problems overnight. pain controlled. bandage changed this AM. there is no active bleeding. no erythema. upon discharge twice weekly patient will require dressing changes with calcium alginate over the wounds lateral ankle and anterior ankle. change bandage whenever saturated. xeroform around all pin sites 4x4 gauze, wrap in ludmila, kerlix and DARSHAN wraps. non-weight bearing right lower extremity. follow up in wound care next AM. c/w antibiotics per ID. discussed surgical procedure, findings and recovery with patient. Qualifiers: Osteomyelitis type: chronic, with draining sinus Osteomyelitis location: foot Laterality: right Qualified Code(s): M86.471 - Chronic osteomyelitis with draining sinus, right ankle and foot Subjective Principal diagnosis: Osteomyelitis right ankle Objective - Vital Signs Vital Signs: Vital Signs Temp Pulse Resp BP Pulse Ox 05/05/18 07:23 98.3 F 94 15 102/66 91 05/05/18 03:59 98.2 F 92 15 110/68 90 05/04/18 23:03 97.7 F 87 16 113/69 92 05/04/18 21:43 16 96 05/04/18 20:43 93 05/04/18 18:33 97.5 F L 88 16 93/68 93 05/04/18 15:18 97.5 F L 82 16 119/67 82 05/04/18 15:11 97.5 F L 82 16 119/67 94 05/04/18 09:19 94 Intake and Output 05/04/18 05/04/18 05/05/18 15:59 23:59 07:59 Intake Total 100 / 100 440 / 440 900 / 900 Output Total 1150 / 1150 1900 / 1900 1400 / 1400 Balance -1050 / -1050 -1460 / -1460 -500 / -500 Intake: IV Fluids 100 / 100 100 / 100 100 / 100 Ancef 2,000 MG In 0.9 % Sodium 100 / 100 100 / 100 100 / 100 Chloride 100 ML @ 200 mls/hr IVPB Q8H [facility] Rx#:[id number] Oral 0 / 0 340 / 340 800 / 800 Output: Estimated Blood Loss 150 / 150 Catheter 1000 / 1000 1900 / 1900 1400 / 1400 Other: Meal NPO Percent of Meal Consumed 0% Weight 124.8 kg Blood Glucose* 197 Patient Weight 05/05/18 23:59 Weight 124.8 kg - Lab Result Diagrams: 05/05/18 00:31 05/05/18 00:31 Labs: Abnormal lab results RBC 2.99 M/mcL (4.19-5.50) L 05/05/18 00:31 Hgb 8.6 g/dL (12.9-16.9) L 05/05/18 00:31 Hct 27.6 % (37.5-50.1) L 05/05/18 00:31 MCHC 31.2 g/dL (31.6-35.5) L 05/05/18 00:31 RDW 15.1 % (11.5-14.5) H 05/05/18 00:31 ESR 121 mm/hr (0-10) H 04/25/18 13:52 PT 13.3 Seconds (9.4-12.1) H 04/25/18 13:52 Sodium 130 mEq/L (136-145) L 05/05/18 00:31 Chloride 95 mEq/L (98-107) L 05/05/18 00:31 Creatinine 0.56 mg/dL (0.70-1.30) L 05/05/18 00:31 Glucose 162 mg/dL (70-105) H 05/05/18 00:31 POC Glucose 212 mg/dL (70-99) H 05/04/18 16:46 Calculated Osmolality 273 (280-300) L 05/05/18 00:31 Calcium 8.2 mg/dL (8.6-10.3) L 05/05/18 00:31 C-Reactive Protein 97 mg/L (Less than 10) H 04/25/18 13:52 Vancomycin Trough 16 mcg/mL (5-10) H 04/30/18 03:58 Consult Discharge Plan - Plan Instructions: Diabetes Mellitus Type 2 in Adults (DC) Referrals: Natasha Hamilton CNP [Advanced Practice Nurse] - 05/18/18 9:00 am Myron Henderson [Primary Care Provider] - Prescriptions: ceFAZolin [Ancef] 2,000 mg IVPB Q8H #30 vial Gabapentin [Neurontin] 800 mg PO QID #28 capsule HYDROcodone/Acet 5/325 mg [[place] 5-325 mg] 1 tab PO Q6HR PRN 7 Days #20 tablet PRN Reason: Moderate Pain
[2018-05-05] MEDS: Budesonide/Formoterol 160/4.5 1 PUFF INH IH SCH (08:11)
[2018-05-05] MEDS ORDERED: Magnesium Oxide 400 MG TABLET PO SCH (09:00)
[2018-05-05] MEDS ORDERED: Aspirin 81 MG TAB.CHEW PO SCH (09:00)
[2018-05-05] MEDS ORDERED: FLUoxetine 20 MG CAPSULE PO SCH (09:00)
[2018-05-05] MEDS ORDERED: Multivit/Ca/Min/Fe/FA 1 TAB TABLET PO SCH (09:00)
[2018-05-05] MEDS ORDERED: Isosorbide MONOnitrate (24 HR) 30 MG TAB.ER.24H PO SCH (09:00)
[2018-05-05] MEDS ORDERED: Folic Acid 1 MG TABLET PO SCH (09:00)
[2018-05-05] MEDS: MORPHINE SULFATE PO SCH (09:37)
[2018-05-05] MEDS: NALTREXONE PO SCH (09:37)
[2018-05-05] MEDS: Gabapentin 400 MG CAPSULE PO SCH ×2 (09:38→13:57)
[2018-05-05] MEDS: Insulin LISPRO 300 UNITS/3 ML VIAL SQ SCH ×4 (09:39→12:30)
[2018-05-05] MEDS ORDERED: Tiotropium 18 MCG inhalation IH SCH (10:00)
--- NOTE | 2018-05-05 11:37 | Discharge Summary ---
- NOTES TO OUTPATIENT PROVIDER Notes to Outpatient Provider: PCP in 5 to 7 days Orders not resulted at time of discharge: Pending orders 04/26/18 16:16 AFB Culture, Tissue [TB] Routine AFB Smear [TB] Routine Fungal Culture [MYC] Routine 05/04/18 18:55 Surgical Pathology [PTH] Routine 05/06/18 04:00 Basic Metabolic Panel AM 0400 CBC [Complete Blood Count] [HEME] AM 0400 Magnesium AM 0400 Phosphorous AM 0400 Date of Encounter: 05/05/18 Time of Encounter: 11:34 - Discharge Diagnosis (1) Osteomyelitis of ankle, right, acute Priority: Primary Status: Acute Assessment and Plan: D 04/12/18 , [facility] to continue IV Ancef. However, presented with worsening foot infection with purulent discharge . Repeat I&D with talectomy done by Dr. Tanner 04/26/18 . Blood and Wound cultures negative to date Seen by ID and discontinued Vancomycin and Zosyn. Podiatry planning external fixator device with antibiotic spacer to be placed later this week per . S/p surgery 05/04/2018. Infectious disease recommending ancef 2 grams IV Q8H for 4-6 weeks. (2) Abscess of right foot Priority: Primary Status: Acute Assessment and Plan: Causative organism: MSSA. Status post I&D 04/12/18 and intraoperative cultures were positive for MSSA. Podiatry consulted and status post I & D 04/26/18 and intra-op cultures are negative. Continue antibiotics as below for now. ID discontinuing Zosyn and vancomycin. Infectious disease recommending ancef 2 grams IV Q8H for 4-6 weeks. (3) Bacteremia Priority: Primary Status: Acute Assessment and Plan: Causative organism: MSSA. Diagnosed on last hospital visit with blood cultures 2 out of 2 sets drawn 04/09/18. Repeat blood cultures drawn 04/11/18 were negative 2 sets. TTE was limited, so a ISRAEL was performed and was negative for endocarditis. Repeat blood cultures drawn 04/25/18 are NGTD 2 sets. No evidence of recurrence of bacteremia noted on exam. Repeat blood cultures are negative. Continue antibiotics as above for now. (4) Anemia Priority: Secondary Status: Acute Assessment and Plan: Patient with chronic anemia with baseline between 9 and 10. Hemoglobin dropped to 7.5 immediately, likely due to blood loss from surgery. Received 1 unit of RBC Hemoglobin 8.6 and stable at discharge Continue to monitor, may require red blood cell transfusion for hemoglobin less than 7. Qualifiers: Anemia type: unspecified type Qualified Code(s): D64.9 - Anemia, unspecified (5) Hyponatremia Priority: Primary Status: Acute Assessment and Plan: Chronic, stable Continue to monitor (6) Type II diabetes mellitus Priority: Secondary Status: Acute Assessment and Plan: Resume home regimen insulin at [place]. Increased basal insulin to 15 units QHS. Dose can be adjusted by [place] physician as deemed necessary. Goal FS is 140-180 Qualifiers: Qualified Code(s): E11.9 - Type 2 diabetes mellitus without complications (7) Urinary retention Priority: Secondary Status: Acute Assessment and Plan: has had shah since last discharge- cont will need follow up with urology at discharge (8) Asthma Priority: Secondary Status: Chronic Assessment and Plan: stable at this time cont bronchodilators and oxygen as needed Qualifiers: Asthma severity: unspecified severity Asthma persistence: unspecified Asthma complication type: unspecified Qualified Code(s): J45.909 - Unspecified asthma, uncomplicated (9) Morbid obesity Priority: Secondary Status: Chronic Assessment and Plan: Life style modification such as diet and exercise recommended. (10) Hypertension Priority: Secondary Status: Chronic Assessment and Plan: Pt can resume Imdur 30 mg PO QD, still holding Hyzaar, and Metoprolol. Held on admission due to low BP. Qualifiers: Hypertension type: essential hypertension Qualified Code(s): I10 - Essential (primary) hypertension (11) BROCK (obstructive sleep apnea) Priority: Secondary Status: Chronic Assessment and Plan: cont CPAP Hospital course: Mr. Newsome is a 63 year old male with past medical history of COPD, diabetes, hyperlipidemia, CAD, s/p CABG, history of osteomyelitis of his right ankle. He has had multiple hospitalizations for his wound to his right ankle discharge December 2017 on antibiotics also discharged 04/17/2018 again for sepsis and IV antibiotics. On his last admission patient was seen by infectious disease was found to have osteomyelitis of his right ankle causative organism MSSA. Patient discharged to [facility] with continued IV Ancef for 6 week course. During the previous admission he did undergo transesophageal echocardiogram which did not show any endocarditis. He was receiving wound care at the [facility] and he went for a follow-up today with podiatry. While in the oil furnace installer's office his wound did open with thick purulent drainage. He was sent to the ER for evaluation. Lab work was completed which did show some hyponatremia as well as hypokalemia. He does have a low-grade temperature 99.5 his systolic is on the low side at 100. Podiatry consulted and patient was admitted for possible I&D in a.m. Wound cultures and blood cultures obtained and pt treated with Zosyn and add vancomycin. Pt continues to improve. Discharge discussed with: patient - Time Spent with Patient Total time spent providing and/or coordinating discharge services: Greater than 30 minutes - Discharge Medications Prescriptions: HYDROcodone/Acet 5/325 mg [[place] 5-325 mg] 1 tab PO Q6HR PRN 7 Days #20 tablet PRN Reason: Moderate Pain ceFAZolin [Ancef] 2,000 mg IVPB Q8H #30 vial Gabapentin [Neurontin] 800 mg PO QID #28 capsule Home Medications: Amlodipine Besylate 10 mg PO DAILY 07/11/17 [History] Aspirin 81 mg PO DAILY 07/11/17 [History] Atorvastatin Calcium 40 mg PO HS 07/11/17 [History] Clopidogrel [Plavix] 75 mg PO DAILY 07/11/17 [History] EPINEPHrine [Epipen] 0.3 mg IM ONCE PRN 07/11/17 [History] Fluticasone/Salmeterol [Advair Hfa 230-21 Mcg Inhaler] 2 puff IH BID 07/11/17 [ History] Folic Acid 1 mg PO DAILY 07/11/17 [History] Gabapentin [Neurontin] 800 mg PO QID 07/11/17 [History] Nitroglycerin [Nitrostat] 0.4 mg SL Q5M PRN MDD [id number] call 911 07/11/17 [ History] Omeprazole [PriLOSEC] 20 mg PO DAILY 07/11/17 [History] Oxygen 2 l NS HS 07/11/17 [History] Potassium Chloride [Klor-Con 10] 10 meq PO DAILY 07/11/17 [History] Empagliflozin [Jardiance] 10 mg PO DAILY 01/20/18 [History] FLUoxetine HCl [Prozac] 60 mg PO DAILY 01/20/18 [History] Furosemide [Lasix] 80 mg PO BID 01/20/18 [History] Montelukast [Singulair] 10 mg PO DAILY 01/20/18 [History] Pramlintide Acetate [Symlinpen 120] 120 mg SQ TIDWM 01/20/18 [History] Albuterol Neb [Proventil Neb] 2.5 mg IH Q4HR PRN 04/11/18 [History] Isosorbide MONOnitrate (24 HR) [Imdur] 30 mg PO DAILY 04/11/18 [History] Losartan/Hydrochlorothiazide [Hyzaar 100-12.5 Tablet] 1 tab PO DAILY 04/11/18 [ History] Magnesium Oxide [Magnesium] 400 mg PO DAILY 04/11/18 [History] Multivitamin [One Daily Multivitamin] 1 tab PO DAILY 04/11/18 [History] [place]-3/Dha/Epa/Fish Oil [Fish Oil 1,000 mg Softgel] 1 cap PO DAILY 04/11/18 [ History] Morphine Sulfate/Naltrexone [Embeda ER 80-3.2 mg Capsule] 1 cap PO BID 5 Days # 10 cap.er.po 04/17/18 [Rx] Collagenase Oint [Santyl] 1 appl TP DAILY 04/25/18 [History] Insulin Regular U-500 [HumuLIN R U-500] 25 unit SQ TID 04/25/18 [History] Metoprolol Succinate [Toprol Xl] 50 mg PO DAILY 04/25/18 [History] Omalizumab [XOLAIR (For Outpatient Infusion)] 300 mg SQ Q2W 04/25/18 [History] Tiotropium [Spiriva] 18 mcg IH DAILY 04/25/18 [History] Gabapentin [Neurontin] 800 mg PO QID #28 capsule 05/05/18 [Rx] HYDROcodone/Acet 5/325 mg [[place] 5-325 mg] 1 tab PO Q6HR PRN 7 Days #20 tablet 05/05/18 [Rx] ceFAZolin [Ancef] 2,000 mg IVPB Q8H #30 vial 05/05/18 [Rx] Allergies/Adverse Reactions: 3 Allergy/AdvReac Type Severity Reaction Status Date / Time dapagliflozin [From [facility]] Allergy Hives Verified 01/20/18 19:08 naphazoline Allergy Hives Verified 01/20/18 19:08 cath DYE Allergy Hives Uncoded 01/20/18 19:08 Date of admission: 04/25/18 15:54 Primary care physician: Caio Henderson Consults: 04/25/18 17:16 Consult to Infectious Diseases [CONS] Routine Consulting Provider: Infectious Disease Lisa Reason for Consult: osteomylitis Time Notified: 17:19 Call Completed: No 04/25/18 17:32 Consult to Consumer Affairs Specialist [CONS] Routine Reason for SW Consult: PATIENT ADMITTED FROM [facility] 04/27/18 18:21 Consult to Occupational Therapy [CONS] Routine Comment: Evaluate, develop and implement POC Reason for Consult: discharge planning Does patient have active BEDREST order?: No Is patient medically & hemodynamically stable?: Yes Consult to Physical Therapy [CONS] Routine Comment: Evaluate, develop and implement POC Reason for Consult: discharge order Does patient have active BEDREST order?: No Is patient medically & hemodynamically stable?: Yes 05/05/18 09:31 Consult to Invasive Line Access Team [CONS] Routine Reason for Consult: d/c IV atb Line Type: Midline Discharging clinician: Sade Gonzalez Anticipated date of discharge: 05/05/18 - Constitutional Vitals: Temp Pulse Resp BP Pulse Ox 98.3 F 94 16 102/66 91 05/05/18 07:23 05/05/18 07:23 05/05/18 08:11 05/05/18 07:23 05/05/18 09:51 General appearance: Present: A&O X 3 Exam: Exam: Gen: VSS, Not in distress Neuro: AAOX3, no focal deficits, no HEENT: Moist oral mucosa, conjunctiva is pink, sclerae is white. No cyanosis. Chest: Clear to auscultation bilaterally with no added sounds. Heart: S1, S2 only. No murmurs gallops or rubs. Abdomen: Obese, nontender, no palpably enlarged organs, bowel sounds present in all quadrants. Extremities: Bilateral pitting pedal edema. R feet in clean wound dressing - Patient Status Disposition: Transfer SNF Condition: Fair - Discharge Instructions Follow Up With: Myron Henderson [Primary Care Provider] -
--- NOTE | 2018-05-05 11:50 | Physician Discharge Referral ---
ExtendedCare Referral Info Provider in Charge after Transfer: PCP Institutional Level of Care: Skilled - Diagnosis (1) Osteomyelitis of ankle, right, acute Priority: Primary Status: Acute (2) Abscess of right foot Priority: Primary Status: Acute (3) Bacteremia Priority: Primary Status: Acute (4) Anemia Priority: Secondary Status: Acute (5) Hyponatremia Priority: Primary Status: Acute (6) Type II diabetes mellitus Priority: Secondary Status: Acute (7) Urinary retention Priority: Secondary Status: Acute (8) Asthma Priority: Secondary Status: Chronic (9) Morbid obesity Status: Chronic (10) Hypertension Priority: Secondary Status: Chronic (11) BROCK (obstructive sleep apnea) Priority: Secondary Status: Chronic Prognosis: Good - Transfer Medications Prescriptions: HYDROcodone/Acet 5/325 mg [[place] 5-325 mg] 1 tab PO Q6HR PRN 7 Days #20 tablet PRN Reason: Moderate Pain ceFAZolin [Ancef] 2,000 mg IVPB Q8H #30 vial Gabapentin [Neurontin] 800 mg PO QID #28 capsule Home Medications: Amlodipine Besylate 10 mg PO DAILY 07/11/17 [History] Aspirin 81 mg PO DAILY 07/11/17 [History] Atorvastatin Calcium 40 mg PO HS 07/11/17 [History] Clopidogrel [Plavix] 75 mg PO DAILY 07/11/17 [History] EPINEPHrine [Epipen] 0.3 mg IM ONCE PRN 07/11/17 [History] Fluticasone/Salmeterol [Advair Hfa 230-21 Mcg Inhaler] 2 puff IH BID 07/11/17 [ History] Folic Acid 1 mg PO DAILY 07/11/17 [History] Gabapentin [Neurontin] 800 mg PO QID 07/11/17 [History] Nitroglycerin [Nitrostat] 0.4 mg SL Q5M PRN MDD [id number] call 911 07/11/17 [ History] Omeprazole [PriLOSEC] 20 mg PO DAILY 07/11/17 [History] Oxygen 2 l NS HS 07/11/17 [History] Potassium Chloride [Klor-Con 10] 10 meq PO DAILY 07/11/17 [History] Empagliflozin [Jardiance] 10 mg PO DAILY 01/20/18 [History] FLUoxetine HCl [Prozac] 60 mg PO DAILY 01/20/18 [History] Furosemide [Lasix] 80 mg PO BID 01/20/18 [History] Montelukast [Singulair] 10 mg PO DAILY 01/20/18 [History] Pramlintide Acetate [Symlinpen 120] 120 mg SQ TIDWM 01/20/18 [History] Albuterol Neb [Proventil Neb] 2.5 mg IH Q4HR PRN 04/11/18 [History] Isosorbide MONOnitrate (24 HR) [Imdur] 30 mg PO DAILY 04/11/18 [History] Losartan/Hydrochlorothiazide [Hyzaar 100-12.5 Tablet] 1 tab PO DAILY 04/11/18 [ History] Magnesium Oxide [Magnesium] 400 mg PO DAILY 04/11/18 [History] Multivitamin [One Daily Multivitamin] 1 tab PO DAILY 04/11/18 [History] [place]-3/Dha/Epa/Fish Oil [Fish Oil 1,000 mg Softgel] 1 cap PO DAILY 04/11/18 [ History] Morphine Sulfate/Naltrexone [[place]eda ER 80-3.2 mg Capsule] 1 cap PO BID 5 Days # 10 cap.er.po 04/17/18 [Rx] Collagenase Oint [Santyl] 1 appl TP DAILY 04/25/18 [History] Insulin Regular U-500 [HumuLIN R U-500] 25 unit SQ TID 04/25/18 [History] Metoprolol Succinate [Toprol Xl] 50 mg PO DAILY 04/25/18 [History] Omalizumab [XOLAIR (For Outpatient Infusion)] 300 mg SQ Q2W 04/25/18 [History] Tiotropium [Spiriva] 18 mcg IH DAILY 04/25/18 [History] Gabapentin [Neurontin] 800 mg PO QID #28 capsule 05/05/18 [Rx] HYDROcodone/Acet 5/325 mg [[place] 5-325 mg] 1 tab PO Q6HR PRN 7 Days #20 tablet 05/05/18 [Rx] ceFAZolin [Ancef] 2,000 mg IVPB Q8H #30 vial 05/05/18 [Rx] Allergies/Adverse Reactions: 3 Allergy/AdvReac Type Severity Reaction Status Date / Time dapagliflozin [From [facility]] Allergy Hives Verified 01/20/18 19:08 naphazoline Allergy Hives Verified 01/20/18 19:08 cath DYE Allergy Hives Uncoded 01/20/18 19:08 - Respiratory Orders Smoking Cessation: Smoking cessation has been advised. For more information, call the [place] Tobacco Quit Line at 5-909-WMVP-NOW. - Advance Directives Code Status: Full Code - Rehabiliation Orders Rehab Potential: Good Rehab Orders: Evaluation for Physical Therapy, Evaluation for Occupational Therapy CERTIFICATION: I certify that the transfer of the above named patient to an Extended Care Facility is necessary for the continuing treatment of the diagnosis listed. The above information is true and accurate reflection of patient's current condition. Confidential - Redisclosure prohibited without a patient's written consent.
[2018-05-05 12:33] VITALS: BP 114/66
--- NOTE | 2018-05-05 12:44 | Infectious Disease Progress No ---
Date of Encounter: 05/05/18 Time of Encounter: 12:39 - Assessment and Plan (1) Wound of right ankle Current Visit: Yes Status: Acute Location: Right ankle. Secondary to recent surgical procedure. According to the notes, there appeared to be purulent drainage and concerns for possible abscess underlying the surgical site. Right foot and ankle x-rays were negative for acute findings. ESR elevated at 121 and CRP 97. Blood cultures obtained 2 sets 04/25/18 are negative. Wound culture is negative. Podiatry consulted and following. Status post I & D with right talectomy. Operative note reviewed. Purulence noted intra-op. Intra-op cultures and pathology are negative. Status post external fixator application and right tibiocalcaneal arthrodesis 05/04/[address] Harrington. Wound care and activity restrictions per the podiatry team. Continue Ancef 2 grams IV Q8H. Duration of treatment depends on the clinical picture, but likely 4-6 weeks from the most recent surgery. Monitor renal function and for drug toxicity and dose adjust antibiotics. Will need weekly CBC, BUN/Cr, ESR and CRP. Will need weekly IV care per protocol. Follow up with ID 05/18/18 at 0900. Qualifiers: Encounter type: initial encounter Qualified Code(s): S91.001A - Unspecified open wound, right ankle, initial encounter (2) Abscess of right foot Current Visit: No Status: Acute Location: Right ankle. Causative organism: MSSA. Status post I&D 04/12/18. Intraoperative cultures were positive for MSSA. Podiatry consult. Status post I & D 04/26/18. Intra-op cultures are negative. Continue antibiotics as above for now. (3) Osteomyelitis Current Visit: Yes Status: Acute Location: Right ankle. Causative organism: MSSA. Status post I&D 04/12/18. Intra-Op cultures were positive for MSSA. Pathology was positive for osteomyelitis. Discharged with plans to complete 6 weeks of IV Ancef, the patient had worsening of the clinical status. Podiatry consulted. Status post I & D with talectomy 04/26/[address] Harrington. Intra-op culture and pathology are negative. Continue antibiotics as above for now. Qualifiers: Osteomyelitis type: chronic, with draining sinus Osteomyelitis location: foot Laterality: right Qualified Code(s): M86.471 - Chronic osteomyelitis with draining sinus, right ankle and foot (4) Bacteremia Current Visit: No Status: Acute Causative organism: MSSA. Diagnosed on last hospital visit with blood cultures 2 out of 2 sets drawn 04/09/18. Repeat blood cultures drawn 04/11/18 were negative 2 sets. TTE was limited, so a ISRA[place] was performed and was negative for endocarditis. Repeat blood cultures drawn 04/25/18 are negative 2 sets. No evidence of recurrence of bacteremia noted on exam. Repeat blood cultures are negative. Continue antibiotics as above for now. (5) Urinary retention Current Visit: Yes Status: Acute Has had a chronic indwelling Christensen catheter since his last hospitalization. Recommend follow-up with urology as an outpatient. (6) Asthma Current Visit: No Status: Chronic Qualifiers: Asthma severity: unspecified severity Asthma persistence: unspecified Asthma complication type: uncomplicated Qualified Code(s): J45.909 - Unspecified asthma, uncomplicated (7) CAD (coronary artery disease) Current Visit: No Status: Chronic Qualifiers: Coronary Disease-Associated Artery/Lesion type: [place] artery [place] vs. transplanted heart: [place] heart Associated angina: without angina Qualified Code(s): I25.10 - Atherosclerotic heart disease of [place] coronary artery without angina pectoris (8) Charcot ankle Current Visit: No Status: Chronic Qualifiers: Laterality: right Qualified Code(s): M14.671 - Charcot's joint, right ankle and foot (9) Diabetes mellitus Current Visit: Yes Status: Chronic Recommend aggressive glucose monitoring and control to promote wound healing and prevent re-infection. Management per the primary team. 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 No acute events noted overnight. Patient states overall he feels better today. Denies any fevers or rigors. Denies headache or neck pain. Denies chest pain, shortness of breath, or cough. Denies nausea, vomiting, or diarrhea. States last bowel movement was yesterday. Christensen catheter remains patent. He denies any oral thrush or any skin lesions. He reports increased pain at surgical site since surgery yesterday. Infect Dis PN-Objective Data - Labs CBC & Chem 7: 05/05/18 00:31 05/05/18 00:31 Labs: Laboratory Results - last 24 hr 05/04/18 05/05/18 05/05/18 16:46 00:31 00:31 WBC 9.4 RBC 2.99 L Hgb 8.6 L Hct 27.6 L MCV 92.3 MCH 28.8 MCHC 31.2 L RDW 15.1 H Plt Count 253 MPV 10.8 Immature Gran % 1.2 Seg Neutrophils % 67.3 Lymphocytes % 14.8 Monocytes % 9.2 Eosinophils % 6.5 Basophils % 1.0 Neutrophils # 6.3 Lymphocytes # 1.4 Monocytes # 0.9 Eosinophils # 0.6 Basophils # 0.1 Sodium 130 L Potassium 4.0 Chloride 95 L Carbon Dioxide 29 BUN 10 Creatinine 0.56 L Est GFR ( Amer) > 60 Est GFR (Non-Af Amer) > 60 BUN/Creatinine Ratio 18 Glucose 162 H POC Glucose 212 H Calculated Osmolality 273 L Calcium 8.2 L Phosphorus 3.8 Magnesium 2.0 Cultures: Cultures 04/26/18 16:16 Anaerobic Culture - Final Right Foot No anaerobes were recovered. 04/25/18 16:40 Blood Culture - Final Peripheral Venipuncture No growth. Final report. 04/25/18 16:40 Blood Culture - Final Peripheral Venipuncture No growth. Final report. 04/26/18 16:16 Surgical Biopsy Culture - Final Right Foot 04/25/18 16:22 Wound Culture - Final Right Ankle No pathogens isolated. 04/26/18 16:16 Acid Fast Stain - Final Right Foot - Impressions Impressions Ankle X-Ray 05/04/18 11:48 IMPRESSION: Fluoroscopic images performed for the purpose of guidance of surgical procedure. Please see performing physician notes for full detail. D/ / 05/04/2018 13:38:46 Owen Chaves MD / reji Interpreting Provider: Owen Chaves MD Fluoroscopy 05/04/18 11:48 IMPRESSION: Fluoroscopic images performed for the purpose of guidance of surgical procedure. Please see performing physician notes for full detail. D/ / 05/04/2018 13:38:46 Owen Chaves MD / reji Interpreting Provider: Owen Chaves MD Exam - Constitutional Vitals: Temp Pulse Resp BP Pulse Ox 97.5 F L 87 16 114/66 94 05/05/18 12:32 05/05/18 12:32 05/05/18 12:32 05/05/18 12:32 05/05/18 12:32 General appearance: cooperative, morbidly obese, no acute distress - Head Head exam: Present: atraumatic, normal inspection, normocephalic - Eye Eye exam: Present: EOMI, normal appearance, PERRL Pupils: Present: normal accommodation - ENT ENT exam: Present: mucous membranes moist - Neck Neck exam: Present: normal inspection - Respiratory Respiratory exam: Present: CTAB. Absent: rales, respiratory distress, rhonchi, wheezes - Cardiovascular Cardiovascular exam: Present: RRR, +S1, +S2 - GI/Abdominal GI/Abdominal exam: Present: distended (obese), normal bowel sounds, soft. Absent: tenderness Additional comments: Christensen catheter noted to be draining clear yellow urine. - Extremities Exam Extremities exam: Present: tenderness (Right foot). Absent: normal inspection ( External fixator noted to the RLE with dressing C/D/I.) - Neurological Exam Neurological exam: Present: alert, oriented X3, no focal deficits - Psychiatric Psychiatric exam: Present: normal affect, normal mood - Skin Skin exam: Present: dry, intact, normal color, warm Consult Discharge Plan - Plan Referrals: Myron Henderson [Primary Care Provider] - Natasha Hamilton, [employer] SYSTEM[employer] MAINTAINER [Advanced Practice Nurse] - 05/18/18 9:00 am Prescriptions: HYDROcodone/Acet 5/325 mg [[place] 5-325 mg] 1 tab PO Q6HR PRN 7 Days #20 tablet PRN Reason: Moderate Pain ceFAZolin [Ancef] 2,000 mg IVPB Q8H #30 vial Gabapentin [Neurontin] 800 mg PO QID #28 capsule
[2018-05-05] MEDS ORDERED: Insulin DETEMIR 100 UNIT/ML X5UNITS SQ SCH (21:00)
== END 2018-05-05 16:15 | DRG 629 ==
LOC: 3NENU 12:13 → EMEROOARM 12:13 → 3NENU 15:15
PROVIDERS: ADMIT Internal Medicine; ATTEND Internal Medicine

== ENCOUNTER 2018-06-29 10:32 | Inpatient (IN) ==
[2018-06-29 11:16] LABS: Basophils # 0.1 K/mcL (0.0-0.2); Basophils % 0.8 %; Eosinophils # 0.6 K/mcL (0.0-0.6); Eosinophils % 4.5 %; Hematocrit 37.2 % (37.5-50.1); Hemoglobin 11.9 g/dL (12.9-16.9); Immature Granulocytes % 1.1 % (0-4); Lymphocytes # 1.9 K/mcL (0.6-4.6); Lymphocytes % 13.5 %; Mean Corpuscular Hemoglobin 26.5 pg (28.0-33.3); Mean Corpuscular Volume 82.9 fL (83.0-100.0); Mean Platelet Volume 10.8 fL (9.4-12.4); Monocytes % 7.3 %; Neutrophils # 10.4 K/mcL (1.6-8.9); Platelet Count 388 K/mcL (140-400); Red Blood Count 4.49 M/mcL (4.19-5.50); Red Cell Distribution Width 15.4 % (11.5-14.5); Segmented Neutrophils % 72.8 %
--- NOTE | 2018-06-29 11:17 | Emergency Department Note ---
Disposition Clinical Impression: Right tibial fracture Qualifiers: Encounter type: initial encounter Tibia location: shaft Fracture type: closed Fracture morphology: transverse Fracture alignment: displaced Qualified Code(s): S82.221A - Displaced transverse fracture of shaft of right tibia, initial encounter for closed fracture Disposition: Admitted As Inpatient Condition: Fair Lower Extremity Injury HPI - General Chief Complaint: ED Extremity Injury, Lower Stated Complaint: fracture r leg Time Seen by Provider: 06/29/18 10:52 Source: patient Mode of arrival: private vehicle Limitations: no limitations Nursing Notes Reviewed: Yes Vital Signs Reviewed: Yes - History of Present Illness HPI Narrative: Patient was sent to the ED from Wound care for admission due to a new leg fracture that will require pinning. He c/o pain in the right leg. No paraesthesi as, fever, chills, nausea or vomiting. Pt Subjective Complaint: leg injury Injury location: Right Leg Onset (ago): day(s) Mechanism of Injury: other (leg was reported pulled by vandana lift at SNF) Context: other Place: other (SNF) Improves with: nothing Worsens with: nothing, movement, palpation Associated symptoms: Reports: unable to bear weight Treatments prior to arrival: dressing, splint, other (Ex-fix frame) - Related Data Home Medications Medication Instructions Recorded Confirmed RX: Aspirin 81 mg PO DAILY 07/11/17 06/29/18 RX: Atorvastatin Calcium 40 mg PO HS 07/11/17 06/29/18 RX: Clopidogrel [Plavix] 75 mg PO DAILY 07/11/17 06/29/18 RX: EPINEPHrine [Epipen] 0.3 mg IM ONCE PRN 07/11/17 06/29/18 RX: Fluticasone/Salmeterol [Advair 2 puff IH BID 07/11/17 06/29/18 Hfa 230-21 Mcg Inhaler] RX: Folic Acid 1 mg PO DAILY 07/11/17 06/29/18 RX: Nitroglycerin [Nitrostat] 0.4 mg SL Q5M PRN MDD [id number] call 07/11/17 06/29/18 911 RX: Potassium Chloride [Klor-Con 10 meq PO DAILY 07/11/17 06/29/18 10] RX: Empagliflozin [Jardiance] 10 mg PO DAILY 01/20/18 06/29/18 RX: FLUoxetine HCl [Prozac] 60 mg PO DAILY 01/20/18 06/29/18 RX: Furosemide [Lasix] 80 mg PO BID 01/20/18 06/29/18 RX: Montelukast [Singulair] 10 mg PO DAILY 01/20/18 06/29/18 RX: Pramlintide Acetate [Symlinpen 120 mg SQ TIDWM 01/20/18 06/29/18 120] RX: Albuterol Neb [Proventil Neb] 2.5 mg IH Q4HR PRN 04/11/18 06/29/18 RX: Isosorbide MONOnitrate (24 HR) 30 mg PO DAILY 04/11/18 06/29/18 [Imdur] RX: Magnesium Oxide [Magnesium] 400 mg PO DAILY 04/11/18 06/29/18 RX: Multivitamin [One Daily 1 tab PO DAILY 04/11/18 06/29/18 Multivitamin] RX: [place]-3/Dha/Epa/Fish Oil [Fish 1 cap PO DAILY 04/11/18 06/29/18 Oil 1,000 mg Softgel] RX: Insulin Regular U-500 [HumuLIN 25 unit SQ TID 04/25/18 06/29/18 R U-500] RX: Metoprolol Succinate [Toprol 50 mg PO DAILY 04/25/18 06/29/18 Xl] RX: Tiotropium [Spiriva] 1 puff IH DAILY 04/25/18 06/29/18 RX: Acetaminophen [Acetaminophen 650 mg PO Q4H PRN 06/24/18 06/29/18 ER] RX: Amlodipine Besylate 10 mg PO DAILY 06/24/18 06/29/18 RX: Pantoprazole Sodium [Protonix] 20 mg PO DAILY 06/24/18 06/29/18 LORazepam [Ativan] 0.5 mg PO BID 06/29/18 06/29/18 Previous Rx's Medication Instructions Recorded RX: Gabapentin [Neurontin] 800 mg PO QID #28 capsule 05/05/18 OxyCODONE/APAP 10/325 [Percocet 1 each PO Q6HR PRN 5 Days #15 06/26/18 10/325 MG] tablet RX: HYDROcodone/Acet 5/325 mg 1 tab PO Q6HR PRN 5 Days #15 tablet 06/26/18 [[place] 5-325 mg] RX: ceFAZolin [Ancef] 2,000 mg IVPB Q8H #30 vial 06/26/18 Allergies Allergy/AdvReac Type Severity Reaction Status Date / Time dapagliflozin [From [facility]] Allergy Hives Verified 01/20/18 19:08 naphazoline Allergy Hives Verified 01/20/18 19:08 cath DYE Allergy Hives Uncoded 01/20/18 19:08 All systems ED: reviewed and negative except as stated. Review of Systems: As Per HPI Constitutional: Denies: fever, chills, weakness, weight change Cardiovascular: Denies: chest pain, palpitations, dyspnea on exertion, edema, syncope Respiratory: Denies: cough, dyspnea, wheezes, hemoptysis, stridor, sputum production Gastrointestinal: Denies: abdominal pain, nausea, vomiting, diarrhea, constipation, hematemesis, melena, hematochezia Genitourinary: Denies: dysuria Integumentary: Denies: rash Neurological: Denies: weakness, numbness, paresthesias, confusion, vertigo Past Medical History - Past Medical History Attestation: Yes The following information was validated with the patient. Source: patient Medical history: Reports: arthritis, asthma, atrial fibrillation, coronary artery disease, DVT, diabetes, GERD, hyperlipidemia, hypertension, myocardial i nfarction, other Surgical history: Reports: angioplasty/stent, appendectomy, cataract, cholecystectomy, coronary bypass (CABG), herniorrhaphy Psychiatric history: Reports: anxiety, depression - Social History Smoking Status: Former smoker Smokeless Tobacco Status: No Alcohol use: Reports: none Drug use: Reports: none Physical Exam - General Limitations: no limitations General appearance: alert, in no apparent distress - Head Head exam: atraumatic, normocephalic, normal inspection - Eye Eye exam: Present: normal appearance, PERRL. Absent: scleral icterus, conju nctival injection, periorbital swelling - ENT ENT exam: normal oropharynx, mucous membranes moist - Neck Neck exam: Present: normal inspection, full ROM, trachea midline. Absent: meningismus - Chest Chest inspection: Present: normal inspection - Respiratory Respiratory exam: Present: normal lung sounds bilaterally. Absent: respiratory distress, wheezes, prolonged expiratory phase - Cardiovascular Cardiovascular exam: Present: regular rate, normal rhythm - Extremities Exam Extremities exam: Present: normal capillary refill, pedal edema, joint swelling - Expanded Lower Extremity Exam Hip/Pelvis exam: Absent: tenderness Upper leg exam: Absent: tenderness Knee exam: Present: normal inspection. Absent: tenderness Lower leg exam: Present: swelling, ecchymosis, Achilles tendon intact, other (frame covering right lower leg limits exam). Absent: deformity, erythema Ankle exam: Present: swelling. Absent: ecchymosis, deformity, erythema Foot/toe exam: Present: full ROM, swelling. Absent: tenderness, ecchymosis, erythema Neurovascular/Tendon exam: Present: normal capillary refill, normal fine/light touch. Absent: pulse deficit, motor deficit, sensory deficit, extremity cold to touch, pallor - Neurological Exam Neurological exam: Present: alert, oriented X3, CN II-XII intact - Psychiatric Psychiatric exam: Present: normal affect, agitated - Skin Skin exam: Present: warm, dry, intact, normal color Course Vital Signs Temperature 98.1 F 06/29/18 10:56 Pulse Rate 81 06/29/18 10:56 Respiratory Rate 15 06/29/18 10:56 Blood Pressure 132/63 06/29/18 10:56 O2 Sat by Pulse Oximetry 99 06/29/18 10:56 Temperature 98.2 F 06/30/18 06:58 Pulse Rate 78 06/30/18 06:58 Respiratory Rate 15 06/30/18 08:23 Blood Pressure 114/73 06/30/18 06:58 O2 Sat by Pulse Oximetry 98 06/30/18 08:23 Oxygen Delivery Oxygen Delivery Room Air Extremity Injury, Lower - Medical Records Medical records reviewed: Yes I reviewed the patient's medical records. - Lab Data Result diagrams: 06/30/18 04:00 06/30/18 04:00 Lab Results 06/29/18 06/29/18 Range/Units 10:58 10:58 WBC 14.3 H (4.3-11.1) K/mcL RBC 4.49 (4.19-5.50) M/mcL Hgb 11.9 L (12.9-16.9) g/dL Hct 37.2 L (37.5-50.1) % MCV 82.9 L (83.0-100.0) fL MCH 26.5 L (28.0-33.3) pg MCHC 32.0 (31.6-35.5) g/dL RDW 15.4 H (11.5-14.5) % Plt Count 388 (140-400) K/mcL MPV 10.8 (9.4-12.4) fL Immature Gran % 1.1 (0-4) % Seg Neutrophils % 72.8 % Lymphocytes % 13.5 % Monocytes % 7.3 % Eosinophils % 4.5 % Basophils % 0.8 % Neutrophils # 10.4 H (1.6-8.9) K/mcL Lymphocytes # 1.9 (0.6-4.6) K/mcL Monocytes # 1.0 (0.0-1.3) K/mcL Eosinophils # 0.6 (0.0-0.6) K/mcL Basophils # 0.1 (0.0-0.2) K/mcL Sodium 131 L (136-145) mEq/L Potassium 3.5 (3.5-5.1) mEq/L Chloride 96 L (98-107) mEq/L Carbon Dioxide 27 (23-29) mEq/L BUN 17 (8-23) mg/dL Creatinine 0.71 (0.70-1.30) mg/dL Est GFR ( Amer) > 60 (> 60) Est GFR (Non-Af Amer) > 60 (> 60) BUN/Creatinine Ratio 24 (6-26) Glucose 233 H (70-105) mg/dL Calculated Osmolality 281 (280-300) Calcium 8.8 (8.6-10.3) mg/dL
[2018-06-29 11:35] LABS: BUN/Creatinine Ratio 24 (6-26); Blood Urea Nitrogen 17 mg/dL (8-23); Calcium 8.8 mg/dL (8.6-10.3); Carbon Dioxide 27 mEq/L (23-29); Chloride 96 mEq/L (98-107); Glucose 233 mg/dL (70-105); Osmolality,Calculated 281 (280-300); Potassium 3.5 mEq/L (3.5-5.1); Sodium 131 mEq/L (136-145); eGFR For Non-African Americans > 60 (> 60)
--- NOTE | 2018-06-29 12:01 | Orthopedic Consult Note ---
Date of Encounter: 06/30/18 Time of Encounter: 14:00 Assessment and Plan (1) Right tibial fracture Current Visit: Yes Status: Acute Patient recently underwent ankle fusions, complicated by a right tibial fracture - external fixation device extended; unfortunately fracture has now shifted, requiring further surgical intervention. Plan: and Right Removal and replacement of external fixation device; Right IM nailing of tibia 06/30/18 NPO after midnight Pain management DVT prophylaxis Christensen catheter in place. NWB. Qualifiers: Qualified Code(s): S82.221A - Displaced transverse fracture of shaft of right tibia, initial encounter for closed fracture (2) Charcot's joint of foot Current Visit: Yes Status: Acute Qualifiers: Qualified Code(s): M14.671 - Charcot's joint, right ankle and foot History of Present Illness Chief complaint: Nonunion of left tibia HPI: Mr. Newsome is a 63 year old male, Patient had a tibiocalcaneal arthrodesis with an external fixation frame on the right lower extremity and currently has a proximal tibia fracture which is in need of ORIF with . He was discharged on 06/28, seen in office wound care with , 06/29, XRAYS reviewed further shift of tibia. Patient admitted to hospital for further surgical mangement. Patient is going to undergo ORIF of the proximal tibia fracture in combination with Dr. Soriano who is going to fix the fracture Patient currently comfortable, pain medication ordered. Discussed with patient the plan for procedure, risks versus benefits potential complications consequences of surgery and his condition at length. All of his questions were answered and the informed consent was discussed. . Past Med Surg Social Fam HX - Past Medical History Medical history: arthritis, asthma, atrial fibrillation, coronary artery disease, DVT, diabetes, GERD, hyperlipidemia, hypertension, myocardial infarction, other Additional medical history: BROCK. DJD Psychiatric history: anxiety, depression - Past Surgical History Surgical History: angioplasty/stent, appendectomy, cataract, cholecystectomy, coronary bypass (CABG), herniorrhaphy Additional surgical history: KNEE SURGERY , stent x1 - Social History Smoking Status: Former smoker Smokeless Tobacco Status: No Alcohol use: none Drug use: none - Family History Mother Living Status: Hx Family Cardiac Disorders: Yes (CHF) Hx Family Endocrine Disorder: Yes (DM) Father Living Status: Hx Family Cardiac Disorders: Yes ([place]) Medications and Allergies Aspirin 81 mg PO DAILY 07/11/17 [History] Atorvastatin Calcium 40 mg PO HS 07/11/17 [History] Clopidogrel [Plavix] 75 mg PO DAILY 07/11/17 [History] EPINEPHrine [Epipen] 0.3 mg IM ONCE PRN 07/11/17 [History] Fluticasone/Salmeterol [Advair Hfa 230-21 Mcg Inhaler] 2 puff IH BID 07/11/17 [History] Folic Acid 1 mg PO DAILY 07/11/17 [History] Nitroglycerin [Nitrostat] 0.4 mg SL Q5M PRN MDD [id number] call 911 07/11/17 [History] Potassium Chloride [Klor-Con 10] 10 meq PO DAILY 07/11/17 [History] Empagliflozin [Jardiance] 10 mg PO DAILY 01/20/18 [History] FLUoxetine HCl [Prozac] 60 mg PO DAILY 01/20/18 [History] Furosemide [Lasix] 80 mg PO BID 01/20/18 [History] Montelukast [Singulair] 10 mg PO DAILY 01/20/18 [History] Pramlintide Acetate [Symlinpen 120] 120 mg SQ TIDWM 01/20/18 [History] Albuterol Neb [Proventil Neb] 2.5 mg IH Q4HR PRN 04/11/18 [History] Isosorbide MONOnitrate (24 HR) [Imdur] 30 mg PO DAILY 04/11/18 [History] Magnesium Oxide [Magnesium] 400 mg PO DAILY 04/11/18 [History] Multivitamin [One Daily Multivitamin] 1 tab PO DAILY 04/11/18 [History] [place]-3/Dha/Epa/Fish Oil [Fish Oil 1,000 mg Softgel] 1 cap PO DAILY 04/11/18 [History] Insulin Regular U-500 [HumuLIN R U-500] 25 unit SQ TID 04/25/18 [History] Metoprolol Succinate [Toprol Xl] 50 mg PO DAILY 04/25/18 [History] Tiotropium [Spiriva] 1 puff IH DAILY 04/25/18 [History] Gabapentin [Neurontin] 800 mg PO QID #28 capsule 05/05/18 [Rx] Acetaminophen [Acetaminophen ER] 650 mg PO Q4H PRN 06/24/18 [History] Amlodipine Besylate 10 mg PO DAILY 06/24/18 [History] Pantoprazole Sodium [Protonix] 20 mg PO DAILY 06/24/18 [History] HYDROcodone/Acet 5/325 mg [[place] 5-325 mg] 1 tab PO Q6HR PRN 5 Days #15 tablet 06/26/18 [Rx] OxyCODONE/APAP 10/325 [Percocet 10/325 MG] 1 each PO Q6HR PRN 5 Days #15 tablet 06/26/18 [Rx] ceFAZolin [Ancef] 2,000 mg IVPB Q8H #30 vial 06/26/18 [Rx] LORazepam [Ativan] 0.5 mg PO BID 06/29/18 [History] Allergy/AdvReac Type Severity Reaction Status Date / Time dapagliflozin [From [facility]] Allergy Hives Verified 01/20/18 19:08 naphazoline Allergy Hives Verified 01/20/18 19:08 cath DYE Allergy Hives Uncoded 01/20/18 19:08 All Systems Reviewed: The remainder of the systems were reviewed and are negative - Constitutional Constitutional: as per HPI, frequent falls, no fever(s), no weakness - Cardiovascular Cardiovascular: no chest pain, no syncope - Respiratory Respiratory: no cough, no dyspnea on exertion - Musculoskeletal Musculoskeletal: as per HPI, no numbness, no radiating pain into limb, no tingling Physical Exam - Constitutional Vitals: Temp Pulse Resp BP Pulse Ox 98.1 F 81 15 132/63 99 06/29/18 10:56 06/29/18 10:56 06/29/18 10:56 06/29/18 10:56 06/29/18 10:56 General appearance IM: mild distress, A&O X 3, answers questions appropriately - Ankle & Foot right Ankle appearance: swelling Effusion grade: No Foot appearance: swelling, erythema, effusion Foot swelling: other Tenderness with palpation: other (Dressing intact, external fixation device on) Results - Labs Result Diagrams: 06/30/18 04:00 06/30/18 04:00 Labs: Abnormal lab results WBC 14.3 K/mcL (4.3-11.1) H 06/29/18 10:58 Hgb 11.9 g/dL (12.9-16.9) L 06/29/18 10:58 Hct 37.2 % (37.5-50.1) L 06/29/18 10:58 MCV 82.9 fL (83.0-100.0) L 06/29/18 10:58 MCH 26.5 pg (28.0-33.3) L 06/29/18 10:58 RDW 15.4 % (11.5-14.5) H 06/29/18 10:58 Neutrophils # 10.4 K/mcL (1.6-8.9) H 06/29/18 10:58 Sodium 131 mEq/L (136-145) L 06/29/18 10:58 Chloride 96 mEq/L (98-107) L 06/29/18 10:58 Glucose 233 mg/dL (70-105) H 06/29/18 10:58 H & H 06/29/18 Range/Units 10:58 Hgb 11.9 L (12.9-16.9) g/dL Hct 37.2 L (37.5-50.1) % All other labs normal. Consult Discharge Plan - Plan Referrals: Myron Henderson [Primary Care Provider] -
--- NOTE | 2018-06-29 15:57 | Internal Med History&Physical ---
<Hallie Cordova - Last Filed: 06/29/18 17:51> Date of Encounter: 06/29/18 Time of Encounter: 15:56 Internal Medicine - H&P: HPI Chief complaint: R tibial fracture Admitted From: Emergency Dept Plans for Post Hospital Care: Transfer Care Home Facility History of present illness: Mr. Newsome is a 63 year old male who presents to the ED with a R tibial fracture. He has a PMHx of arthritis, asthma, Afib, CAD, DVT, DM, charcot foot, GERD, hyperlipidemia, HTN, and HI. Patient states that this is his second fract ure of the R tibia, and that his first occurred on when he was trying to get into bed. He swung his R leg into bed and it popped and cracked causing him extreme pain. He had surgery for it that Tuesday, was in the hospital here for a few days, then was discharged. Patient states he was at [facility] on Tuesday and needed to get an updated body weight, and during this his R leg popped/cracked again and he had extreme pain similar to his first fracture. He says he came to see Dr. Harrington today at the wound clinic b/c of a wound on his R ankle. Dr. Harrington had Xray done today and states a new fracture is present, which is when he came to the ED. He currently denies any fevers, fatigue, chest pain or palpitations, SOB, cough, or wheezing. Patient admits to nausea today. He also denies current smoking, alcohol use, or illicit drug use. Past Med Surg Social Fam HX - Past Medical History Attestation: Yes The following information was validated with the patient. Source: patient Medical history: arthritis, asthma, atrial fibrillation, coronary artery disease, DVT, diabetes, GERD, hyperlipidemia, hypertension, myocardial infarction, other Additional medical history: BROCK w/ CPAP/2L o2. DJD Psychiatric history: anxiety, depression - Past Surgical History Surgical History: angioplasty/stent, appendectomy, cataract, cholecystectomy, coronary bypass (CABG), herniorrhaphy Additional surgical history: KNEE SURGERY , stent x1, right ankle ext. fixation - Social History Smoking Status: Former smoker Smokeless Tobacco Status: No Alcohol use: none Drug use: none - Family History Mother Living Status: Hx Family Cardiac Disorders: Yes (HI) Hx Family Endocrine Disorder: Yes (DM) Father Living Status: Hx Family Cardiac Disorders: Yes (HI) Internal Medicine - H&P: Meds Aspirin 81 mg PO DAILY 07/11/17 [History] Atorvastatin Calcium 40 mg PO HS 07/11/17 [History] Clopidogrel [Plavix] 75 mg PO DAILY 07/11/17 [History] EPINEPHrine [Epipen] 0.3 mg IM ONCE PRN 07/11/17 [History] Fluticasone/Salmeterol [Advair Hfa 230-21 Mcg Inhaler] 2 puff IH BID 07/11/17 [History] Folic Acid 1 mg PO DAILY 07/11/17 [History] Nitroglycerin [Nitrostat] 0.4 mg SL Q5M PRN MDD [id number] call 911 07/11/17 [History] Potassium Chloride [Klor-Con 10] 10 meq PO DAILY 07/11/17 [History] Empagliflozin [Jardiance] 10 mg PO DAILY 01/20/18 [History] FLUoxetine HCl [Prozac] 60 mg PO DAILY 01/20/18 [History] Furosemide [Lasix] 80 mg PO BID 01/20/18 [History] Montelukast [Singulair] 10 mg PO DAILY 01/20/18 [History] Pramlintide Acetate [Symlinpen 120] 120 mg SQ TIDWM 01/20/18 [History] Albuterol Neb [Proventil Neb] 2.5 mg IH Q4HR PRN 04/11/18 [History] Isosorbide MONOnitrate (24 HR) [Imdur] 30 mg PO DAILY 04/11/18 [History] Magnesium Oxide [Magnesium] 400 mg PO DAILY 04/11/18 [History] Multivitamin [One Daily Multivitamin] 1 tab PO DAILY 04/11/18 [History] Long Lane-3/Dha/Epa/Fish Oil [Fish Oil 1,000 mg Softgel] 1 cap PO DAILY 04/11/18 [History] Insulin Regular U-500 [HumuLIN R U-500] 25 unit SQ TID 04/25/18 [History] Metoprolol Succinate [Toprol Xl] 50 mg PO DAILY 04/25/18 [History] Tiotropium [Spiriva] 1 puff IH DAILY 04/25/18 [History] Gabapentin [Neurontin] 800 mg PO QID #28 capsule 10/05/18 [Rx] Acetaminophen [Acetaminophen ER] 650 mg PO Q4H PRN 06/24/18 [History] Amlodipine Besylate 10 mg PO DAILY 06/24/18 [History] Pantoprazole Sodium [Protonix] 20 mg PO DAILY 06/24/18 [History] HYDROcodone/Acet 5/325 mg [[place] 5-325 mg] 1 tab PO Q6HR PRN 5 Days #15 tablet 06/26/18 [Rx] OxyCODONE/APAP 10/325 [Percocet 10/325 MG] 1 each PO Q6HR PRN 5 Days #15 tablet 06/26/18 [Rx] ceFAZolin [Ancef] 2,000 mg IVPB Q8H #30 vial 06/26/18 [Rx] LORazepam [Ativan] 0.5 mg PO BID 06/29/18 [History] Allergy/AdvReac Type Severity Reaction Status Date / Time dapagliflozin [From [facility]] Allergy Hives Verified 01/20/18 19:08 naphazoline Allergy Hives Verified 01/20/18 19:08 cath DYE Allergy Hives Uncoded 01/20/18 19:08 All Systems PM: A 10-system review of systems was performed and is negative for pertinent findings except as documented above in the HPI. - Constitutional Constitutional: no fatigue, no fever(s), no falls - EENT Eyes: no change in vision - Cardiovascular Cardiovascular ROS IM: chest pain, no irregular heart rhythm, no palpitations, no syncope - Respiratory Respiratory: no cough, no dyspnea, no wheezing - Gastrointestinal Gastrointestinal: nausea, no abdominal pain, no diarrhea, no vomiting - Genitourinary Genitourinary ROS male: no dysuria, no hematuria, no urinary frequency - Musculoskeletal Musculoskeletal ROS IM: arthralgias, joint swelling, limited range of motion (R LE), muscle weakness, myalgias, numbness (R foot) - Integumentary Integumentary IM: no pruritus, no rash - Neurological Neurological ROS: no numbness, no tingling, no weakness - Psychiatric Psychiatric: anxiety, no depression, no mood swings - Constitutional Vitals: Temp Pulse Resp BP Pulse Ox 98.1 F 81 15 132/71 96 06/29/18 10:56 06/29/18 12:10 06/29/18 12:10 06/29/18 12:10 06/29/18 12:10 General appearance: Present: A&O X 3, no acute distress Exam: no acute distress - Head Head exam: Present: atraumatic, normocephalic - Eye Eye exam: Present: normal appearance - Neck Neck exam general surgery: Present: normal inspection - Respiratory Respiratory exam: Present: CTAB. Absent: accessory muscle use, rales, rhonchi, wheezes - Cardiovascular Cardiovascular exam: Present: RRR, +S1, +S2. Absent: diastolic murmur, gallop, rubs, systolic murmur - GI/Abdominal GI/Abdominal exam: Present: normal bowel sounds, soft, no peritoneal signs. Absent: distended, tenderness - Extremities Exam Additional comments: Tenderness to R leg, decreased sensation of R plantar surface. R lower extremity is a Charcot foot. Has a halo and pins around his R foot and R ankle. - Neurological Exam Neurological exam: Present: oriented X3, strengths equal and symetr throughout Additional comments: Sensation normal in UE and LE bilaterally, except for the R foot, which had decreased sensation on the plantar surface. - Psychiatric Psychiatric exam: Present: normal affect, normal mood - Skin Skin exam: Present: dry, intact Internal Med - H&P Results - Labs CBC & Chem 7: 06/29/18 10:58 06/29/18 10:58 Labs: Short CBC 06/29/18 Range/Units 10:58 WBC 14.3 H (4.3-11.1) K/mcL Hgb 11.9 L (12.9-16.9) g/dL Hct 37.2 L (37.5-50.1) % Plt Count 388 (140-400) K/mcL Neutrophils # 10.4 H (1.6-8.9) K/mcL BMP 06/29/18 10:58 Sodium 131 L Potassium 3.5 Chloride 96 L Carbon Dioxide 27 BUN 17 Creatinine 0.71 Glucose 233 H Calcium 8.8 - Assessment and plan (1) Right tibial fracture Current Visit: No Status: Acute Assessment and plan: Patient has both a proximal and mid shaft fracture of the R tibia. Pt. states this is his 2nd fracture of the R tibia, and that his first occurred on when he was trying to get into bed. He swung his R leg into bed and it "popped and cracked" causing him extreme pain. he had surgery for it that Tuesday, was in the hospital at [facility] for a few days, then was discharged./ Patient states he was at [facility] on Tuesday (06/27/18) and needed to get an updated body weight, and during this his R leg popped/cracked again and he had extreme pain similar to his first fracture. He says he came to see Dr. Harrington today at the wound clinic b/c of a wound on his R ankle. Dr. Harrington had a Xray don e today and states a new fracture is present, which is when he came to the ED. Xrays of the ankle showed a mid-shaft tibial fracture, and Xrays of the tibia/fibula showed a proximal tibial fracture. Patient had external fixation completed by his instructional technology teacher in May. Currently takes oxycodone for pain. Plan: -Orthopedics is following, need to determine when they plan to do surgery -Keep patient NPO since he will likely have surgery soon Qualifiers: Encounter type: initial encounter Tibia location: shaft Fracture type: closed Fracture morphology: transverse Fracture alignment: displaced Qualified Code(s): S82.221A - Displaced transverse fracture of shaft of right tibia, initial encounter for closed fracture (2) Leukocytosis Current Visit: No Status: Resolved Assessment and plan: Leukocytosis is high at a level of 14.3. Etiology is likely d/t the osteomyelitis he is currently being treated for of his R ankle. Pt denies any respiratory or urinary complaints. This could potentially also be secondary to the new acute fracture. Pt is currently afebrile. Plan: -Continue to monitor WBC count -Will continue ancef per ID Qualifiers: Leukocytosis type: bandemia Qualified Code(s): D72.825 - Bandemia (3) Charcot's joint of foot Current Visit: No Status: Acute Assessment and plan: This is a chronic issue. Qualifiers: Laterality: right Qualified Code(s): M14.671 - Charcot's joint, right ankle and foot (4) CAD (coronary artery disease) Current Visit: No Status: Chronic Assessment and plan: He has a history of CAD, but denies chest pain today. Plan: -Hold Plavix for surgery -Continue other home medications such as amlodipine, ASA, metoprolol, lasix, imdur, and atorvastatin Qualifiers: Coronary Disease-Associated Artery/Lesion type: [place] artery [place] vs. transplanted heart: [place] heart Associated angina: without angina Qualified Code(s): I25.10 - Atherosclerotic heart disease of [place] coronary artery without angina pectoris (5) Asthma Current Visit: No Status: Chronic Assessment and plan: History of chronic asthma, not an exacerbation today. Plan: -Continue home inhalers -Duonebs PRN Qualifiers: Asthma severity: unspecified severity Asthma persistence: unspecified Asthma complication type: uncomplicated Qualified Code(s): J45.909 - Unspecified asthma, uncomplicated (6) Type II diabetes mellitus Current Visit: No Status: Chronic Assessment and plan: This is a chronic T2DM patient on insulin. His glucose is high today at 233. Plan: -Patient will be on sliding scale insulin (medium dose) -Continue checking acu-cheks -Diabetic diet when off NPO status Qualifiers: Diabetes mellitus medical terminologist insulin use: with senior living use Diabetes mellitus complication status: with diabetic arthropathy Qualified Code(s): E11.610 - Type 2 diabetes mellitus with diabetic neuropathic arthropathy; Z79.4 - nursing home (current) use of insulin (7) BROCK (obstructive sleep apnea) Current Visit: No Status: Chronic Assessment and plan: Plan: -Order CPAP for bedtime (8) DVT prophylaxis Current Visit: No Status: Acute Assessment and plan: Plan: -5,000 units SQ heparin q8hrs (9) History of osteomyelitis Current Visit: No Status: Chronic Assessment and plan: Patient had osteomyelitis w/ (+) blood culture for MSSA at last admission on 05/05/18. Was placed on IV ancef by ID and was supposed to continue for at least 6weeks. He was supposed to have an appt w/ ID on 06/28/18. Unknown if he saw provider. Plan: -Continue ancef per ID -We consulted ID for further management of osteomyelitis and abx regimen - Time Spent With Patient Total time spent is greater than 50% in coordination of care (as documented) at patient's floor/unit and/or counseling patient: <Kathy Huffman - Last Filed: 06/30/18 08:13> Date of Encounter: 06/30/18 Internal Medicine - H&P: HPI History of present illness: Mr. Newsome is a 63 year old male All Systems PM: A 10-system review of systems was performed and is negative for pertinent findings except as documented above in the HPI. - Constitutional Vitals: Temp Pulse Resp BP Pulse Ox 98.2 F 78 16 114/73 97 06/30/18 06:58 06/30/18 06:58 06/30/18 06:58 06/30/18 06:58 06/30/18 06:58 Internal Med - H&P Results - Labs CBC & Chem 7: 06/30/18 04:00 06/30/18 04:00 Labs: Short CBC 06/29/18 06/30/18 Range/Units 10:58 04:00 WBC 14.3 H 12.7 H (4.3-11.1) K/mcL Hgb 11.9 L 11.3 L (12.9-16.9) g/dL Hct 37.2 L 35.9 L (37.5-50.1) % Plt Count 388 372 (140-400) K/mcL Neutrophils # 10.4 H 8.7 (1.6-8.9) K/mcL BMP 06/29/18 06/30/18 10:58 04:00 Sodium 131 L 133 L Potassium 3.5 3.6 Chloride 96 L 97 L Carbon Dioxide 27 27 BUN 17 18 Creatinine 0.71 0.74 Glucose 233 H 141 H Calcium 8.8 8.9 - Assessment and plan (1) CAD (coronary artery disease) Current Visit: No Status: Chronic Qualifiers: Coronary Disease-Associated Artery/Lesion type: [place] artery [place] vs. transplanted heart: [place] heart Associated angina: without angina Qualified Code(s): I25.10 - Atherosclerotic heart disease of [place] coronary artery without angina pectoris (2) Asthma Current Visit: No Status: Chronic Qualifiers: Asthma severity: unspecified severity Asthma persistence: unspecified Asthma complication type: uncomplicated Qualified Code(s): J45.909 - Unspecified asthma, uncomplicated (3) DVT prophylaxis Current Visit: No Status: Acute (4) Leukocytosis Current Visit: No Status: Resolved Qualifiers: Leukocytosis type: bandemia Qualified Code(s): D72.825 - Bandemia (5) BROCK (obstructive sleep apnea) Current Visit: No Status: Chronic (6) Type II diabetes mellitus Current Visit: No Status: Chronic Qualifiers: Diabetes mellitus senior living insulin use: with senior living use Diabetes mellitus complication status: with diabetic arthropathy Qualified Code(s): E11.610 - Type 2 diabetes mellitus with diabetic neuropathic arthropathy; Z79.4 - medical terminologist (current) use of insulin (7) Charcot's joint of foot Current Visit: No Status: Acute Qualifiers: Laterality: right Qualified Code(s): M14.671 - Charcot's joint, right ankle and foot (8) Right tibial fracture Current Visit: No Status: Acute Qualifiers: Encounter type: initial encounter Tibia location: shaft Fracture type: closed Fracture morphology: transverse Fracture alignment: displaced Qualified Code(s): S82.221A - Displaced transverse fracture of shaft of right tibia, initial encounter for closed fracture (9) History of osteomyelitis Current Visit: No Status: Chronic - Time Spent With Patient Total time spent is greater than 50% in coordination of care (as documented) at patient's floor/unit and/or counseling patient: - Attending Attestation I examined this patient and my medical decision-making was reviewed with the Resident Physician Dr Cordova. I agree with the documented findings, disposition and treatment plan as described except to the extent set forth below. Mr Newsome has pmhx recent ankle fusions, complicated by a right tibial fracture - external fixation device, charcot foot, right ankle wound with MSSA osteomyelitis around the right ankle follwed by ID and still on Ancef. Discharged from here 2 days ago and rpesents for snf with new right tibial fracture. orhto and posiatry already on board and planning for OR intervention. awake, alert, pleasant. pain tolerable. no fevers, chills, n/v. gen- alert, awake,appears stated age, obese eyes- pupils equal round , no conjunctival pallor cv- reg rate and rhythm, warm extremities, hard to appreciate RLE edema given hardware in place, no pitting edema of LLE lungs- normal resp effort on room air skin- ankle wound on right cannot be visualized given hardware/dressing, warm, dry, normal color neuro- AAOx3,diminished sensation to light touch right foot and leg Right Tibial fracture- ortho and podiatry with plan for OR in am, npo p mn, hold home plavix (hx stent with placement remote past per pt as could not confirm in [employer]), prn pain control Right ankle wound with MSSA osteomyelitis Leukocytosis, afebrile -discussed with his outpt ID team, cont ancef, they will follow CAD hx, stable- check pre op ekg, cont home med regimen DM, hyperglcemia-hold long acting insulin as npo p mn, SSI ordered, will resume home regimen post op, prn hypoglycemics further diagnoses and treatment as documented by resident
[2018-06-29] MEDS ORDERED: Naloxone 0.4 MG/ML INJ IVP PRN (16:16)
[2018-06-29] MEDS ORDERED: D5% in Water 1,000 ML IVC PRN (16:20)
[2018-06-29] MEDS ORDERED: *HR* Dextrose 50 % in Water (Syg) 50 ML SYRINGE IVP PRN (16:20)
[2018-06-29] MEDS ORDERED: Dextrose Gel 15 GM/37.5 ML TUBE PO PRN (16:20)
[2018-06-29] MEDS ORDERED: Ipratropium/Albuterol Neb 3 ML IH PRN (16:22)
[2018-06-29] MEDS ORDERED: Albuterol 2.5 MG/3 ML NEBULIZER IH PRN (16:54)
--- NOTE | 2018-06-29 17:33 | Event Note ---
Date of Encounter: 06/29/18 Time of Encounter: 15:00 I examined this patient and my medical decision-making was reviewed with the Resident Physician Dr Cordova. I agree with the documented findings, disposition and treatment plan as described except to the extent set forth below. Mr Newsome has pmhx recent ankle fusions, complicated by a right tibial fracture - external fixation device, charcot foot, right ankle wound with MSSA osteomyelitis around the right ankle follwed by ID and still on Ancef. Discharg ed from here 2 days ago and rpesents for snf with new right tibial fracture. orhto and posiatry already on board and planning for OR intervention. awake, alert, pleasant. pain tolerable. no fevers, chills, n/v. gen- alert, awake,appears stated age, obese eyes- pupils equal round , no conjunctival pallor cv- reg rate and rhythm, warm extremities, hard to appreciate RLE edema given hardware in place, no pitting edema of LLE lungs- normal resp effort on room air skin- ankle wound on right cannot be visualized given hardware/dressing, warm, dry, normal color neuro- AAOx3,diminished sensation to light touch right foot and leg Right Tibial fracture- ortho and podiatry with plan for OR in am, npo p mn, hold home plavix (hx stent with placement remote past per pt as could not confirm in [employer]), prn pain control Right ankle wound with MSSA osteomyelitis Leukocytosis, afebrile -discussed with his outpt ID team, cont ancef, they will follow CAD hx, stable- check pre op ekg, cont home med regimen DM, hyperglcemia-hold long acting insulin as npo p mn, SSI ordered, will resume home regimen post op, prn hypoglycemics further diagnoses and treatment as documented by resident
[2018-06-29] MEDS: Insulin LISPRO 300 UNITS/3 ML VIAL SQ SCH (17:43)
[2018-06-29] MEDS: Ondansetron 4 MG/2 ML VIAL IVP PRN (17:49)
[2018-06-29] MEDS: Gabapentin 400 MG CAPSULE PO SCH ×2 (17:49→20:46)
[2018-06-29] MEDS: *HR* OxyCODONE/APAP 10/325 TABLET PO PRN ×2 (17:49→21:52)
--- NOTE | 2018-06-29 17:55 | Podiatry Consult Note ---
Date of Encounter: 06/29/18 Time of Encounter: 15:45 Assessment and Plan (1) Right tibial fracture Current visit: No Status: Acute Assessment: Right tibial fracture with external fixator CFT < 3 seconds RLE pale in color, warm to touch WBC 14.3, H/H 11.9/37.2 XR/XR tibia fibula RT IMPRESSION: Fracture of the proximal shaft of the tibia. External fixation device in place. D/ / 06/29/2018 12:11:56 Charlie Davis MD / andreina Interpreting Provider: Charlie Davis MD R #: [id number] XR/XR ankle complete min 3V RT IMPRESSION: 1. External fixation device remains in place. 2. Fracture of the midshaft of the tibia. 3. Stable alignment. D/ / 06/29/2018 11:58:18 Charlie Davis MD / Marline Hammond Interpreting Provider: Charlie Davis MD Plan: Dr. Harrington and Dr. Soriano to take patient to surgery for tibial pin 06/30. NPO after MN. NWB. Strict bedrest. Pain managed by primary team, may need breakthrough pain medication. Qualifiers: Encounter type: initial encounter Tibia location: shaft Fracture type: closed Fracture morphology: transverse Fracture alignment: displaced Qualified Code(s): S82.221A - Displaced transverse fracture of shaft of right tibia, initial encounter for closed fracture History of Present Illness HPI: Mr. Newsome is a 63 year old male known to the podiatry clinic. PMH of arthritis, asthma, AFIB, CAD, DVT, DM, charcot foot, GERD, HLD, HTN, and GA. He previously had a right charcot deformity in which he underwent a right tibiocalcaneal arthrodesis with external fixator in May 2018. He then returned 06/23 after putting weight on the right lower extremity for a tibia fracture while in an external fixator. Patient was taken to the OR 06/24 for a tibial fracture repair and placement of SEAL external fixator. Mr. Newsome unfortunately presents today with pain to RLE. He reports that while at the [facility] he was placed in a vandana lift to be weighed. He states despite tell ing staff he should not be moved, he was placed in the vandana lift and they placed the bottom strap underneath his right thigh. He states once lifted in the air he heard a snap and he was in excruciating pain immediately. Xray upon admission showed fracture of the proximal tibia and tibial midshaft. Past Med Surg Social Fam HX - Past Medical History Medical history: arthritis, asthma, atrial fibrillation, coronary artery disea se, DVT, diabetes, GERD, hyperlipidemia, hypertension, myocardial infarction, other Additional medical history: BROCK w/ CPAP/2L o2. DJD Psychiatric history: anxiety, depression - Past Surgical History Surgical History: angioplasty/stent, appendectomy, cataract, cholecystectomy, coronary bypass (CABG), herniorrhaphy Additional surgical history: KNEE SURGERY , stent x1, right ankle ext. fixation - Social History Smoking Status: Former smoker Smokeless Tobacco Status: No Alcohol use: none Drug use: none - Family History Mother Living Status: Hx Family Cardiac Disorders: Yes ([place]) Hx Family Endocrine Disorder: Yes (DM) Father Living Status: Hx Family Cardiac Disorders: Yes ([place]) Medications and Allergies Aspirin 81 mg PO DAILY 07/11/17 [History] Atorvastatin Calcium 40 mg PO HS 07/11/17 [History] Clopidogrel [Plavix] 75 mg PO DAILY 07/11/17 [History] EPINEPHrine [Epipen] 0.3 mg IM ONCE PRN 07/11/17 [History] Fluticasone/Salmeterol [Advair Hfa 230-21 Mcg Inhaler] 2 puff IH BID 07/11/17 [History] Folic Acid 1 mg PO DAILY 07/11/17 [History] Nitroglycerin [Nitrostat] 0.4 mg SL Q5M PRN MDD [id number] call 911 07/11/17 [History] Potassium Chloride [Klor-Con 10] 10 meq PO DAILY 07/11/17 [History] Empagliflozin [Jardiance] 10 mg PO DAILY 01/20/18 [History] FLUoxetine HCl [Prozac] 60 mg PO DAILY 01/20/18 [History] Furosemide [Lasix] 80 mg PO BID 01/20/18 [History] Montelukast [Singulair] 10 mg PO DAILY 01/20/18 [History] Pramlintide Acetate [Symlinpen 120] 120 mg SQ TIDWM 01/20/18 [History] Albuterol Neb [Proventil Neb] 2.5 mg IH Q4HR PRN 04/11/18 [History] Isosorbide MONOnitrate (24 HR) [Imdur] 30 mg PO DAILY 04/11/18 [History] Magnesium Oxide [Magnesium] 400 mg PO DAILY 04/11/18 [History] Multivitamin [One Daily Multivitamin] 1 tab PO DAILY 04/11/18 [History] [place]-3/Dha/Epa/Fish Oil [Fish Oil 1,000 mg Softgel] 1 cap PO DAILY 04/11/18 [History] Insulin Regular U-500 [HumuLIN R U-500] 25 unit SQ TID 04/25/18 [History] Metoprolol Succinate [Toprol Xl] 50 mg PO DAILY 04/25/18 [History] Tiotropium [Spiriva] 18 mcg IH DAILY 04/25/18 [History] Gabapentin [Neurontin] 800 mg PO QID #28 capsule 05/05/18 [Rx] Acetaminophen [Acetaminophen ER] 650 mg PO Q4H PRN 06/24/18 [History] Amlodipine Besylate 10 mg PO DAILY 06/24/18 [History] Pantoprazole Sodium [Protonix] 20 mg PO DAILY 06/24/18 [History] HYDROcodone/Acet 5/325 mg [[place] 5-325 mg] 1 tab PO Q6HR PRN 5 Days #15 tablet 06/26/18 [Rx] OxyCODONE/APAP 10/325 [Percocet 10/325 MG] 1 each PO Q6HR PRN 5 Days #15 tablet 06/26/18 [Rx] ceFAZolin [Ancef] 2,000 mg IVPB Q8H #30 vial 06/26/18 [Rx] Allergy/AdvReac Type Severity Reaction Status Date / Time dapagliflozin [From [facility]] Allergy Hives Verified 01/20/18 19:08 naphazoline Allergy Hives Verified 01/20/18 19:08 cath DYE Allergy Hives Uncoded 01/20/18 19:08 All Systems Reviewed: The remainder of the systems were reviewed and are negative - Constitutional Constitutional: as per HPI, frequent falls, weakness, no fever(s) - Cardiovascular Cardiovascular: as per HPI, leg edema, pedal edema, no chest pain, no dyspnea - Respiratory Respiratory: as per HPI, no dyspnea - Musculoskeletal Musculoskeletal: as per HPI, limited range of motion, radiating pain into limb Physical Exam - Constitutional Vitals: Temp Pulse Resp BP Pulse Ox 98.2 F 81 17 134/71 97 06/29/18 17:36 06/29/18 17:36 06/29/18 17:36 06/29/18 17:36 06/29/18 17:36 Exam: Constitiutional: Alert and oriented x 3. Vascular: External fixator in place RLE, CFT <3 sec to all digits RLE, warm toes LLE Neurologic: Diminished sensation LLE, normal plantar response, Abnormal position sense dorsiflexion/plantar flexion Dermatologic: External fixator in place RLE, RLE pale in color, warm to touch Musculoskeletal: Able to wiggle toes. Results - Labs Result Diagrams: 06/29/18 10:58 06/29/18 10:58 Labs: Abnormal lab results WBC 14.3 K/mcL (4.3-11.1) H 06/29/18 10:58 Hgb 11.9 g/dL (12.9-16.9) L 06/29/18 10:58 Hct 37.2 % (37.5-50.1) L 06/29/18 10:58 MCV 82.9 fL (83.0-100.0) L 06/29/18 10:58 MCH 26.5 pg (28.0-33.3) L 06/29/18 10:58 RDW 15.4 % (11.5-14.5) H 06/29/18 10:58 Neutrophils # 10.4 K/mcL (1.6-8.9) H 06/29/18 10:58 Sodium 131 mEq/L (136-145) L 06/29/18 10:58 Chloride 96 mEq/L (98-107) L 06/29/18 10:58 Glucose 233 mg/dL (70-105) H 06/29/18 10:58 POC Glucose 140 mg/dL (70-99) H 06/29/18 17:36 H & H Range/Units 10:58 Hgb 11.9 L (12.9-16.9) g/dL Hct 37.2 L (37.5-50.1) % All other labs normal. Consult Discharge Plan - Plan Referrals: Myron Henderson [Primary Care Provider] -
[2018-06-29] MEDS: *HR* Heparin 5,000 UNIT/ML VIAL SQ SCH (20:46)
[2018-06-29] MEDS: Furosemide 40 MG TABLET PO SCH (20:46)
[2018-06-29] MEDS ORDERED: Insulin LISPRO 300 UNITS/3 ML VIAL SQ SCH (21:00)
[2018-06-29] MEDS: Budesonide/Formoterol 160/4.5 1 PUFF INH IH SCH (21:31)
[2018-06-30] MEDS: *HR* OxyCODONE/APAP 10/325 TABLET PO PRN (04:32)
[2018-06-30] MEDS: Ondansetron 4 MG/2 ML VIAL IVP PRN (04:34)
[2018-06-30 05:02] LABS: Basophils # 0.1 K/mcL (0.0-0.2); Basophils % 0.7 %; Eosinophils # 0.6 K/mcL (0.0-0.6); Eosinophils % 4.6 %; Hematocrit 35.9 % (37.5-50.1); Hemoglobin 11.3 g/dL (12.9-16.9); Immature Granulocytes % 0.6 % (0-4); Lymphocytes # 2.3 K/mcL (0.6-4.6); Lymphocytes % 17.9 %; Mean Corpuscular HGB Conc 31.5 g/dL (31.6-35.5); Mean Corpuscular Volume 82.7 fL (83.0-100.0); Mean Platelet Volume 11.1 fL (9.4-12.4); Monocytes % 7.7 %; Neutrophils # 8.7 K/mcL (1.6-8.9); Platelet Count 372 K/mcL (140-400); Red Blood Count 4.34 M/mcL (4.19-5.50); Red Cell Distribution Width 15.2 % (11.5-14.5); Segmented Neutrophils % 68.5 %
[2018-06-30 05:06] LABS: INR 1.2; Prothrombin Time 13.3 Seconds (9.4-12.1)
[2018-06-30 05:19] LABS: BUN/Creatinine Ratio 24 (6-26); Blood Urea Nitrogen 18 mg/dL (8-23); Calcium 8.9 mg/dL (8.6-10.3); Carbon Dioxide 27 mEq/L (23-29); Chloride 97 mEq/L (98-107); Glucose 141 mg/dL (70-105); Osmolality,Calculated 280 (280-300); Potassium 3.6 mEq/L (3.5-5.1); Sodium 133 mEq/L (136-145); eGFR For Non-African Americans > 60 (> 60)
[2018-06-30] MEDS ORDERED: *HR* Promethazine 25 MG/ML VIAL IV ONE (06:20)
[2018-06-30] MEDS: *HR* Heparin 5,000 UNIT/ML VIAL SQ SCH (07:14)
--- NOTE | 2018-06-30 08:19 | Orthopedics Progress Note ---
Date of Encounter: 06/30/18 Time of Encounter: 08:18 Subjective Interval history: Patient seen this morning patient for x-rays removal intramedullary nail fixation of tibia fracture. Plan is for surgery today. Patient will discuss plan with family and Dr. Harrington before signing consent. Objective Vital signs: Vital Signs Temp Pulse Resp BP Pulse Ox 06/30/18 06:58 98.2 F 78 16 114/73 97 06/30/18 04:21 98.1 F 74 15 117/66 96 06/30/18 00:05 98.2 F 74 15 112/64 98 06/29/18 23:31 14 98 06/29/18 21:31 17 98 06/29/18 21:27 75 122/72 06/29/18 19:46 98.7 F 78 16 92/58 96 06/29/18 17:36 98.2 F 81 17 134/71 97 06/29/18 12:10 81 15 132/71 96 06/29/18 10:56 98.1 F 81 15 132/63 99 Intake and Output 06/29/18 06/30/18 06/30/18 23:59 07:59 15:59 Intake Total 400 / 400 Output Total 2350 / 2350 1450 / 1450 Balance -1950 / -1950 -1450 / -1450 Intake: Oral 400 / 400 Output: Catheter 2350 / 2350 1450 / 1450 Other: Meal Dinner Percent of Meal Consumed 100% Blood Glucose* 208 152 - Labs CBC & BMP: 06/30/18 04:00 06/30/18 04:00 Labs: Abnormal lab results WBC 12.7 K/mcL (4.3-11.1) H 06/30/18 04:00 Hgb 11.3 g/dL (12.9-16.9) L 06/30/18 04:00 Hct 35.9 % (37.5-50.1) L 06/30/18 04:00 MCV 82.7 fL (83.0-100.0) L 06/30/18 04:00 MCH 26.0 pg (28.0-33.3) L 06/30/18 04:00 MCHC 31.5 g/dL (31.6-35.5) L 06/30/18 04:00 RDW 15.2 % (11.5-14.5) H 06/30/18 04:00 PT 13.3 Seconds (9.4-12.1) H 06/30/18 04:49 Sodium 133 mEq/L (136-145) L 06/30/18 04:00 Chloride 97 mEq/L (98-107) L 06/30/18 04:00 Glucose 141 mg/dL (70-105) H 06/30/18 04:00 POC Glucose 208 mg/dL (70-99) H 06/29/18 20:52 Consult Discharge Plan - Plan Referrals: Myron Henderson [Primary Care Provider] -
[2018-06-30] MEDS: Budesonide/Formoterol 160/4.5 1 PUFF INH IH SCH ×2 (08:22→20:45)
[2018-06-30] MEDS: Furosemide 40 MG TABLET PO SCH (08:24)
[2018-06-30] MEDS: Insulin LISPRO 300 UNITS/3 ML VIAL SQ SCH ×3 (08:24→21:12)
[2018-06-30] MEDS: Gabapentin 400 MG CAPSULE PO SCH ×3 (08:25→21:13)
[2018-06-30] MEDS ORDERED: FLUoxetine 20 MG CAPSULE PO SCH (09:00)
[2018-06-30] MEDS ORDERED: Magnesium Oxide 400 MG TABLET PO SCH (09:00)
[2018-06-30] MEDS ORDERED: amLODIPine 5 MG TABLET PO SCH (09:00)
[2018-06-30] MEDS ORDERED: Aspirin 81 MG TAB.CHEW PO SCH (09:00)
[2018-06-30] MEDS ORDERED: Isosorbide MONOnitrate (24 HR) 30 MG TAB.ER.24H PO SCH (09:00)
[2018-06-30] MEDS ORDERED: Metoprolol XL (24 HR) Succ 50 MG TAB.ER.24H PO SCH (09:00)
[2018-06-30] MEDS ORDERED: Folic Acid 1 MG TABLET PO SCH (09:00)
[2018-06-30] MEDS ORDERED: *HR* OxyCODONE/APAP 10/325 TABLET PO ONE (09:55)
[2018-06-30] MEDS ORDERED: Tiotropium 18 MCG inhalation IH SCH (10:00)
--- NOTE | 2018-06-30 11:25 | Infectious Disease Consult ---
Date of Encounter: 06/30/18 Time of Encounter: 10:15 Assessment and Plan (1) History of osteomyelitis Status: Chronic Assessment and plan: Patient has had multiple episodes of osteomyelitis of R ankle: in late December, then in mid Apr. First case treated with 6 weeks IV nafcillin + 2 weeks oral Keflex Second case treated with IV Ancef, still continuing. 04/26 - R talectomy, R ankle foot I&D Was supposed to follow up with infectious disease at outpatient clinic on 06/28 for osteomyelitis management but patient cancelled appointment. Today, hemodynamically neema and afebrile. WBCs 12.7 (yest. 14.3) Recommendations: Continue IV Ancef 2g Q8Hr (2) Right tibial fracture Status: Acute Assessment and plan: 06/22 - midshaft fracture of R tibia 06/24 - external fixation of R tibia 06/27 - fracture of proximal shaft of R tibia 06/30 - ortho plans to surgically repair tibia fracture Qualifiers: Encounter type: initial encounter Tibia location: shaft Fracture type: closed Fracture morphology: transverse Fracture alignment: displaced Qualified Code(s): S82.221A - Displaced transverse fracture of shaft of right tibia, initial encounter for closed fracture (3) Wound of right ankle Status: Chronic Assessment and plan: Patient has been hospitalized multiple times since December for a wound on R lateral ankle. Patient reports wound being present for [address] Malone's (corporate administrator) in wound center for management. I was unable to examine wound today due to dressing and fixation being present. His nurse told me that she has not seen the wound, either. Qualifiers: Encounter type: subsequent encounter Qualified Code(s): S91.001D - Unspecified open wound, right ankle, subsequent encounter (4) Charcot's joint of foot Status: Chronic Assessment and plan: chronic issue, being managed by podiatry 05/04 - R tibiocalcaneal arthrodesis, performed by Dr. Harrington Qualifiers: Laterality: right Qualified Code(s): M14.671 - Charcot's joint, right ankle and foot (5) Asthma Status: Chronic Qualifiers: Asthma severity: unspecified severity Asthma persistence: unspecified Asthma complication type: uncomplicated Qualified Code(s): J45.909 - Unspecified asthma, uncomplicated (6) CAD (coronary artery disease) Status: Chronic Qualifiers: Coronary Disease-Associated Artery/Lesion type: [place] artery [place] vs. transplanted heart: [place] heart Associated angina: without angina Qualified Code(s): I25.10 - Atherosclerotic heart disease of [place] coronary artery without angina pectoris (7) BROCK (obstructive sleep apnea) Status: Chronic (8) Type II diabetes mellitus Status: Chronic Qualifiers: Diabetes mellitus correction insulin use: with correction use Diabetes mellitus complication status: with diabetic arthropathy Qualified Code(s): E11.610 - Type 2 diabetes mellitus with diabetic neuropathic arthropathy; Z79.4 - penitentiary (current) use of insulin Infectious Disease HPI - Data of Consult Patient: known to practice within the last 3 years Consult date: 06/29/18 Requesting Physician: Kathy Huffman Primary Care Provider: Caio Henderson - Consult Narrative Reason for consult: abx mgmt of wound infection of R leg and mgmt of Ancef History of present illness: Mr. Newsome is a 63 year old male who was admitted to [facility] on 06/29 for a R tibial fracture. Infectious disease was consulted on 06/29 for management of a wound infection on R leg and management of Ancef which was being managed outpatient and given for osteomyelitis. Mr. Newsome, with a past medical hx of ankle fusions, Charcot foot, osteomyelitis, asthma, CAD, DVT, DM, PR, GERD, and HTN, presented to the [place] ED from Wound care clinic on 06/29 with a complaint of pain in R leg. He had previously fractured his R tibia on 06/22 when bearing weight on it while trying to climb into bed. He had this fractured repaired surgically on 06/24 and a multiplane external fixator placed. On 06/27, patient experienced a cracking sensation and extreme pain in his R leg when being lifted with a vandana lift at his [facility]. Imaging in ED found patient to have midshaft and proximal shaft tibial fractures. As far back as December 2017, patient has had multiple hospitalizations for a wound on the lateral R ankle, and patient states that he has had the wound for 6 months. The patient has also had multiple episodes of osteomyelitis of the R ankle, with one episode in late December and another in mid-April. Wound cultures in both cases were positive for MSSA, which was treated with IV n afcillin + oral Keflex the first time and IV Ancef the second time. Since admission, patient has been hemodynamically stable and afebile (Tmax 98.9). He meets 1 SIRS criteria with a WBC count of 12.7 today (14.3 yest.). Seg neutrophils 68.5% 06/30, and no bands present. BUN 18, Creat 0.74. Creat clearance >60. Tibia/fibula x-ray of R leg on 06/29 showed a fracture of the proximal shaft of the tibia. R ankle x-ray on 06/29 showed a fracture of the midshaft of the tibia. On review of systems, patient complained of nausea and 10/10 pain in R ankle. He also endorsed chills. He denied headache, dizziness, eye irritation/changes in vision, sore throat, SOB, dyspnea, edema, abd pain, vomitting, diarrhea, or hematuria/dysuria. I was unable to view the R lateral ankle wound due to wrap a nd external fixation. Ortho plans to surgically repair the tibia today (06/30). CC: Kathy Huffman Past Med Surg Social Fam HX - Past Medical History Medical history: arthritis, asthma, atrial fibrillation, coronary artery disease, DVT, diabetes, GERD, hyperlipidemia, hypertension, myocardial infarction, other Additional medical history: BROCK w/ CPAP/2L o2. DJD Psychiatric history: anxiety, depression - Past Surgical History Surgical History: angioplasty/stent, appendectomy, cataract, cholecystectomy, coronary bypass (CABG), herniorrhaphy Additional surgical history: KNEE SURGERY , stent x1, right ankle ext. fixation - Social History Smoking Status: Former smoker Smokeless Tobacco Status: No Alcohol use: none Drug use: none - Family History Father Living Status: Hx Family Cardiac Disorders: Yes (PR) Mother Living Status: Hx Family Cardiac Disorders: Yes (PR) Hx Family Endocrine Disorder: Yes (DM) Infectious Disease-CN:Meds RX: Aspirin 81 mg PO DAILY 07/11/17 [History] RX: Atorvastatin Calcium 40 mg PO HS 07/11/17 [History] RX: Clopidogrel [Plavix] 75 mg PO DAILY 07/11/17 [History] RX: EPINEPHrine [Epipen] 0.3 mg IM ONCE PRN 07/11/17 [History] RX: Fluticasone/Salmeterol [Advair Hfa 230-21 Mcg Inhaler] 2 puff IH BID 07/11/17 [History] RX: Folic Acid 1 mg PO DAILY 07/11/17 [History] RX: Nitroglycerin [Nitrostat] 0.4 mg SL Q5M PRN MDD [id number] call 911 07/11/17 [History] RX: Potassium Chloride [Klor-Con 10] 10 meq PO DAILY 07/11/17 [History] RX: Empagliflozin [Jardiance] 10 mg PO DAILY 01/20/18 [History] RX: FLUoxetine HCl [Prozac] 60 mg PO DAILY 01/20/18 [History] RX: Furosemide [Lasix] 80 mg PO BID 01/20/18 [History] RX: Montelukast [Singulair] 10 mg PO DAILY 01/20/18 [History] RX: Pramlintide Acetate [Symlinpen 120] 120 mg SQ TIDWM 01/20/18 [History] RX: Albuterol Neb [Proventil Neb] 2.5 mg IH Q4HR PRN 04/11/18 [History] RX: Isosorbide MONOnitrate (24 HR) [Imdur] 30 mg PO DAILY 04/11/18 [History] RX: Magnesium Oxide [Magnesium] 400 mg PO DAILY 04/11/18 [History] RX: Multivitamin [One Daily Multivitamin] 1 tab PO DAILY 04/11/18 [History] RX: [place]-3/Dha/Epa/Fish Oil [Fish Oil 1,000 mg Softgel] 1 cap PO DAILY 04/11/18 [History] RX: Insulin Regular U-500 [HumuLIN R U-500] 25 unit SQ TID 04/25/18 [History] RX: Metoprolol Succinate [Toprol Xl] 50 mg PO DAILY 04/25/18 [History] RX: Tiotropium [Spiriva] 1 puff IH DAILY 04/25/18 [History] RX: Gabapentin [Neurontin] 800 mg PO QID #28 capsule 05/05/18 [Rx] RX: Acetaminophen [Acetaminophen ER] 650 mg PO Q4H PRN 06/24/18 [History] RX: Amlodipine Besylate 10 mg PO DAILY 06/24/18 [History] RX: Pantoprazole Sodium [Protonix] 20 mg PO DAILY 06/24/18 [History] OxyCODONE/APAP 10/325 [Percocet 10/325 MG] 1 each PO Q6HR PRN 5 Days #15 tablet 06/26/18 [Rx] RX: HYDROcodone/Acet 5/325 mg [[place] 5-325 mg] 1 tab PO Q6HR PRN 5 Days #15 tablet 06/26/18 [Rx] RX: ceFAZolin [Ancef] 2,000 mg IVPB Q8H #30 vial 06/26/18 [Rx] LORazepam [Ativan] 0.5 mg PO BID 06/29/18 [History] Allergy/AdvReac Type Severity Reaction Status Date / Time dapagliflozin [From [facility]] Allergy Hives Verified 01/20/18 19:08 naphazoline Allergy Hives Verified 01/20/18 19:08 cath DYE Allergy Hives Uncoded 01/20/18 19:08 - Constitutional Constitutional: Present: chills. Absent: headache(s) - EENT Eyes: Absent: change in vision, diplopia, irritation Ears: Present: tinnitus. Absent: ear pain Nose, mouth and throat: Absent: dizziness, nasal congestion, nasal discharge, sinus pressure, sore throat - Cardiovascular Cardiovascular: Absent: dyspnea, irregular heart rhythm, palpitations, pedal edema Additional comments: Endorsed chest pressure/heaviness yesterday - Respiratory Respiratory: Absent: cough, dyspnea, wheezing - Gastrointestinal Gastrointestinal: Present: nausea. Absent: abdominal pain, diarrhea, vomiting - Genitourinary Genitourinary: urinary frequency Additional comments: denies dysuria, hematuria - Musculoskeletal Musculoskeletal: Present: as per HPI - Psychiatric Psychiatric: Present: anxiety Exam - Constitutional Vitals: Temp Pulse Resp BP Pulse Ox 98.2 F 78 15 114/73 98 06/30/18 06:58 06/30/18 06:58 06/30/18 08:23 06/30/18 06:58 06/30/18 08:23 General appearance: cooperative, morbidly obese - Head Head exam: Present: atraumatic, normocephalic - Eye Eye exam: Present: normal appearance, sclera anicteric. Absent: conjunctival injection, periorbital swelling - Respiratory Respiratory exam: Present: CTAB. Absent: rales, respiratory distress, rhonchi, wheezes - Cardiovascular Cardiovascular exam: Present: RRR, +S1, +S2. Absent: diastolic murmur, rubs, systolic murmur Additional comments: Distant heart sounds - GI/Abdominal GI/Abdominal exam: Present: normal bowel sounds, soft. Absent: guarding, tenderness - Extremities Exam Additional comments: R ankle in external fixation and wrapped. L foot and ankle without edema or tenderness. - Neurological Exam Additional comments: Sensation diminished in 1st and 5th digits of R foot and R heel. Sensation of L foot intact. Infectious Disease CN: Results - Labs CBC & Chem 7: 06/30/18 04:00 06/30/18 04:00 Consult Discharge Plan - Plan Referrals: Myron Henderson [Primary Care Provider] - - Attending Attestation I examined this patient and my medical decision-making was reviewed with the Resident Physician. I agree with the documented findings, disposition and treat ment plan as described except to the extent set forth below. patient is a 63 year old gentleman with past medical history entioned below had a recent admission on April 09 and was found to have osteomyelitis right foot with MSSA. and was treated by us with cefazolin since. patient was doing well clinically. On June 24 he had a fall requiring Repair of right tibia fracture, application of multiplane external fixation. patient was discahrged and continued cefazolin. patient had another fall on this admission and was found to have 1. External fixation device remains in place. 2. Fracture of the midshaft of the tibia. 3. Stable alignment. patient only had leukocytosis. no fever no tachycardia no other sirs criteria PE HEENT: emerald, eomi ENT: MMM. no oral lesions Lungs: CTA B CV: RRR, S1S2 abdomen: soft, non tender normal bowel movements Ext: left leg with external fixator Neuro: groselly intact skin no rash. A/P: recent osteomyelitsi with MSSA right foot treated. s/p fall with fracture will d/w podiatry, if they fell the infection has fully healed, consider stopping antibiotics and observing no need to get inflammatory markers since I expect them to be high poss fall d/w podiatry tre
--- NOTE | 2018-06-30 13:05 | Podiatry Progress Note ---
Date of Encounter: 06/30/18 Time of Encounter: 12:00 - Assessment and Plan (1) Charcot's joint of foot Current Visit: Yes Status: Chronic Patient had a tibiocalcaneal arthrodesis with an external fixation frame on the right lower extremity and currently has a proximal tibia fracture which is in need of ORIF. Patient is going to undergo ORIF of the proximal tibia fracture in combination with Dr. Soriano who is going to fix the fracture and I will adjust the external fixation frame and reapply if possible. Discussed with patient the nature of this procedure, risks versus benefits potential complications consequences of surgery and his condition at length. No guarantees were made as to the outcome and he understood that his leg may not be salvageable and ultimately he could end up with a below the knee amputation. All of his questions were answered and the informed consent was signed. No guarantees made as to the outcome of any procedure. And he understood it is possible that he may not have the external fixator replaced on his leg or adjusted depending on the tibia fracture fixation. Qualifiers: Laterality: right Qualified Code(s): M14.671 - Charcot's joint, right ankle and foot (2) Right tibial fracture Current Visit: Yes Status: Acute See above Qualifiers: Encounter type: initial encounter Tibia location: shaft Fracture type: closed Fracture morphology: transverse Fracture alignment: displaced Qualified Code(s): S82.221A - Displaced transverse fracture of shaft of right tibia, initial encounter for closed fracture Subjective Interval history: Patient admitted with proximal tibia fracture with recurrent displacement. Patient said when he initially went to the detention he was doing fine was not having pain and then his leg was jerked around on the Dandre lift and he says he felt a crack and immediate excruciating pain. I saw him in the wound care center yesterday he was sent to the emergency room for admission. Dr. Soriano consult did and planning for surgery today in combination with myself. Objective - Vital Signs Vital Signs: Vital Signs Temp Pulse Resp BP Pulse Ox 06/30/18 11:21 98.9 F 74 16 151/74 98 06/30/18 08:23 15 98 06/30/18 06:58 98.2 F 78 16 114/73 97 06/30/18 04:21 98.1 F 74 15 117/66 96 06/30/18 00:05 98.2 F 74 15 112/64 98 06/29/18 23:31 14 98 06/29/18 21:31 17 98 06/29/18 21:27 75 122/72 06/29/18 19:46 98.7 F 78 16 92/58 96 06/29/18 17:36 98.2 F 81 17 134/71 97 Intake and Output 06/29/18 06/30/18 06/30/18 23:59 07:59 15:59 Intake Total 400 / 400 100 / 100 Output Total 2350 / 2350 1900 / 1900 Balance -1950 / -1950 -1799 / -1800 Intake: IV Fluids 100 / 100 Ancef 2,000 MG In 0.9 % Sodium 100 / 100 Chloride 100 ML @ 200 mls/hr IVPB Q8HR [facility] Rx#:[id number] Oral 400 / 400 Output: Catheter 2349 / 0 1899 / 1899 Other: Meal Dinner Percent of Meal Consumed 100% Blood Glucose* 208 152 166 - Exam Exam: External fixator is in place. There is no pistoning present. There is pain with palpation the proximal aspect of the leg. There is no moderate edema of the leg as well. There is a wound on the lateral aspect of the right foot which has no erythema. - Lab Result Diagrams: 06/30/18 04:00 06/30/18 04:00 Labs: Abnormal lab results WBC 12.7 K/mcL (4.3-11.1) H 06/30/18 04:00 Hgb 11.3 g/dL (12.9-16.9) L 06/30/18 04:00 Hct 35.9 % (37.5-50.1) L 06/30/18 04:00 MCV 82.7 fL (83.0-100.0) L 06/30/18 04:00 MCH 26.0 pg (28.0-33.3) L 06/30/18 04:00 MCHC 31.5 g/dL (31.6-35.5) L 06/30/18 04:00 RDW 15.2 % (11.5-14.5) H 06/30/18 04:00 PT 13.3 Seconds (9.4-12.1) H 06/30/18 04:49 Sodium 133 mEq/L (136-145) L 06/30/18 04:00 Chloride 97 mEq/L (98-107) L 06/30/18 04:00 Glucose 141 mg/dL (70-105) H 06/30/18 04:00 POC Glucose 208 mg/dL (70-99) H 06/29/18 20:52 Consult Discharge Plan - Plan Referrals: Myron Henderson [Primary Care Provider] -
--- NOTE | 2018-06-30 13:22 | Internal Med Progress Note ---
<Hallie Cordova - Last Filed: 06/30/18 13:19> Hospitalist Progress Note - Encounter Date of Encounter: 06/30/18 Time of Encounter: 10:15 - Subjective Interval History: Patient seen and examined at bedside. He is alert and oriented times 3. He denies any complaints. Denies fever, chills, shortness of breath, chest pain, abdominal pain, nausea. - Exam Vitals: Temp Pulse Resp BP Pulse Ox 98.9 F 74 16 151/74 96 06/30/18 11:21 06/30/18 11:21 06/30/18 11:38 06/30/18 11:21 06/30/18 11:38 Exam: Gen.: Vitals noted. No acute distress. AAOx3 HEENT: oropharynx clear, Normocephalic, atraumatic Neck: Supple. No adenopathy. Cardiac: RRR, no murmur, +S1/S2, no BLE edema Pulmonary: CTA bilaterally, no wheezes, rales or rhonchi, equal chest expansion Abdomen: soft, nontender, Bowel sounds noted, no guarding Extremities: tenderness to right leg, decreased sensation of right plantar surface. Right lower extremity is a charcot foot. He has a halo and pins is right foot and ankle. Neuro: A&Ox3, moves all extremities, no focal deficits Psych: Appropriate mood and behavior - Assessment and Plan (1) Right tibial fracture Current Visit: Yes Status: Acute Assessment and Plan: Patient has both a proximal and mid shaft fracture of the R tibia. Pt. states this is his 2nd fracture of the R tibia, and that his first occurred on when he was trying to get into bed. He swung his R leg into bed and it "popped and cracked" causing him extreme pain. he had surgery for it that Tuesday, was in the hospital at [place] for a few days, then was discharged./ Patient states he was at [facility] on Tuesday (06/27/18) and needed to get an updated body weight, and during this his R leg popped/cracked again and he had extreme pain similar to his first fracture. He says he came to see Dr. Harrington today at the wound clinic b/c of a wound on his R ankle. Dr. Harrington had a Xray don e today and states a new fracture is present, which is when he came to the ED. Xrays of the ankle showed a mid-shaft tibial fracture, and Xrays of the tibia/fibula showed a proximal tibial fracture. 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 Plan: -Orthopedics to take patient to OR for surgery today -NPO -Currently takes oxycodone for pain. (2) Leukocytosis Current Visit: No Status: Resolved Assessment and Plan: Leukocytosis 14.3 at admission afebrile WBC 12.7 improved Etiology is likely d/t the osteomyelitis he is currently being treated for of his R ankle. Pt denies any respiratory or urinary complaints. This could potentially also be secondary to the new acute fracture. Plan: -Continue to monitor WBC count -Will continue ancef per ID day 2 in the hospital -blood cultures not taken as the patient has been on IV antibiotics outpatient (3) Charcot's joint of foot Current Visit: Yes Status: Acute Assessment and Plan: This is a chronic issue. (4) CAD (coronary artery disease) Current Visit: No Status: Chronic Assessment and Plan: He has a history of CAD, but denies chest pain today. Plan: -Hold Plavix for surgery -Continue other home medications such as amlodipine, ASA, metoprolol, lasix, imdur, and atorvastatin (5) Asthma Current Visit: No Status: Chronic Assessment and Plan: History of chronic asthma, not an exacerbation today. Plan: -Continue home inhalers -Duonebs PRN (6) Type II diabetes mellitus Current Visit: No Status: Chronic Assessment and Plan: This is a chronic T2DM patient on insulin. Glucose is controlled Plan: -Patient will be on sliding scale insulin (medium dose) -Continue checking acu-cheks -Diabetic diet when off NPO status (7) BROCK (obstructive sleep apnea) Current Visit: No Status: Chronic Assessment and Plan: Plan: -Order CPAP for bedtime (8) DVT prophylaxis Current Visit: No Status: Acute Assessment and Plan: Plan: -5,000 units SQ heparin q8hrs (9) History of osteomyelitis Current Visit: No Status: Chronic Assessment and Plan: Patient had osteomyelitis w/ (+) blood culture for MSSA at last admission on 05/05/18. Was placed on IV ancef by ID and was supposed to continue for at least 6weeks. He was supposed to have an appt w/ ID on 06/28/18 that he did not go to the appointment due to new fracture. Plan: -Continue ancef per ID -We consulted ID for further management of osteomyelitis and abx regimen since they were following the patient outpatient - Time Spent with Patient Total time spent is greater than 50% in coordination of care (as documented) at patient's floor/unit and/or counseling patient: Internal Medicine: Result - Labs CBC & Chem 7: 06/30/18 04:00 06/30/18 04:00 Labs: Short CBC 06/30/18 Range/Units 04:00 WBC 12.7 H (4.3-11.1) K/mcL Hgb 11.3 L (12.9-16.9) g/dL Hct 35.9 L (37.5-50.1) % Plt Count 372 (140-400) K/mcL Neutrophils # 8.7 (1.6-8.9) K/mcL BMP 06/30/18 04:00 Sodium 133 L Potassium 3.6 Chloride 97 L Carbon Dioxide 27 BUN 18 Creatinine 0.74 Glucose 141 H Calcium 8.9 - ABG Interpretation ABG results: PT/INR, D-dimer PT 13.3 Seconds (9.4-12.1) H 06/30/18 04:49 Consult Discharge Plan - Plan Referrals: Myron Henderson [Primary Care Provider] - <Kathy Huffman - Last Filed: 06/30/18 16:12> Hospitalist Progress Note - Encounter Date of Encounter: 06/30/18 - Exam Vitals: Temp Pulse Resp BP Pulse Ox 98.9 F 74 16 151/74 96 06/30/18 11:21 06/30/18 11:21 06/30/18 11:38 06/30/18 11:21 06/30/18 11:38 - Assessment and Plan (1) CAD (coronary artery disease) Current Visit: No Status: Chronic (2) Asthma Current Visit: No Status: Chronic (3) DVT prophylaxis Current Visit: No Status: Acute (4) Leukocytosis Current Visit: No Status: Resolved (5) BROCK (obstructive sleep apnea) Current Visit: No Status: Chronic (6) Type II diabetes mellitus Current Visit: No Status: Chronic (7) Charcot's joint of foot Current Visit: Yes Status: Chronic (8) Right tibial fracture Current Visit: Yes Status: Acute (9) History of osteomyelitis Current Visit: No Status: Chronic - Time Spent with Patient Total time spent is greater than 50% in coordination of care (as documented) at patient's floor/unit and/or counseling patient: Internal Medicine: Result - Labs CBC & Chem 7: 06/30/18 04:00 06/30/18 04:00 Labs: Short CBC 06/30/18 Range/Units 04:00 WBC 12.7 H (4.3-11.1) K/mcL Hgb 11.3 L (12.9-16.9) g/dL Hct 35.9 L (37.5-50.1) % Plt Count 372 (140-400) K/mcL Neutrophils # 8.7 (1.6-8.9) K/mcL BMP 06/30/18 04:00 Sodium 133 L Potassium 3.6 Chloride 97 L Carbon Dioxide 27 BUN 18 Creatinine 0.74 Glucose 141 H Calcium 8.9 - ABG Interpretation ABG results: PT/INR, D-dimer PT 13.3 Seconds (9.4-12.1) H 06/30/18 04:49 - Attending Attestation I examined this patient and my medical decision-making was reviewed with the Resident Physician Dr Cordova. I agree with the documented findings, disposition and treatment plan as described except to the extent set forth below. Mr Newsome has pmhx recent ankle fusions, complicated by a right tibial fracture - external fixation device, charcot foot, right ankle wound with MSSA osteomyelitis around the right ankle followed by ID and still on Ancef. Discharged from here 2 days ago and rpesents for snf with new right tibial fracture. orhto and posiatry already on board and planning for OR intervention. awake, alert,npo awaiting or. pain ahs been untolerable this morning, though he is comofrtable appearing at this time. no fevers, chills, n/v. gen- alert, awake,appears stated age, obese cv- reg rate and rhythm, warm extremities, hard to appreciate RLE edema given hardware in place, no pitting edema of LLE lungs- ctable, no wheezing, rhonchi or crackles normal resp effort on room air skin- ankle wound on right cannot be visualized given hardware/dressing, warm, dry, normal color neuro- AAOx3 Right Tibial fracture- ortho and podiatry with plan for ORthis afternoon, hold home plavix and hep sq for vre ppx today, prn pain control Right ankle wound with MSSA osteomyelitis Leukocytosis, afebrile -discussed with his outpt ID team, cont ancef, fu addl recs DM, hyperglcemia-hold long acting insulin today as reminas npo, SSI ordered, will resume home regimen post op, prn hypoglycemics further diagnoses and treatment as documented by resident <Kathy Huffman - Last Filed: 06/30/18 16:12> (1) CAD (coronary artery disease) Qualifiers: Coronary Disease-Associated Artery/Lesion type: [place] artery [place] vs. transplanted heart: [place] heart Associated angina: without angina Qualified Code(s): I25.10 - Atherosclerotic heart disease of 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 Diabetes mellitus complication status: with diabetic arthropathy Qualified Code(s): E11.610 - Type 2 diabetes mellitus with diabetic neuropathic arthropathy; Z79.4 - penitentiary (current) use of insulin (7) Charcot's joint of foot Qualifiers: Laterality: right Qualified Code(s): M14.671 - Charcot's joint, right ankle and foot (8) Right tibial fracture Qualifiers: Encounter type: initial encounter Tibia location: shaft Fracture type: closed Fracture morphology: transverse Fracture alignment: displaced Qualified Code(s): S82.221A - Displaced transverse fracture of shaft of right tibia, initial encounter for closed fracture
--- NOTE | 2018-06-30 15:27 | Anesthesia Evaluation PreOp ---
Date of Encounter: 06/30/18 Time of Encounter: 15:25 - Past History Planned Operation: Right Tibia IM Nail, Removal External Fixator Cardiac History: SD (x 2, most recently around 4 years ago), HTN, Hyperlipidemia, Cardiac Surgery (CABG x 4 in 1998), Cardiac Stent (1 stent 6 years ago) Pulmonary History: Former smoker, COPD, BROCK Dx (uses 2 L oxygen at night with his CPAP machine - setting of 11 mmHg) CREEL CLEANER History: Denies Any Significant HX Other Medical History: Diabetes Type II, Other (obesity BMI=48.6) Anesthesia History: No Prior Anesthetic Complications, Past Anesthesia Alcohol Use: none Drug use: none Medications and Allergies Aspirin 81 mg PO DAILY 07/11/17 [History] Atorvastatin Calcium 40 mg PO HS 07/11/17 [History] Clopidogrel [Plavix] 75 mg PO DAILY 07/11/17 [History] EPINEPHrine [Epipen] 0.3 mg IM ONCE PRN 07/11/17 [History] Fluticasone/Salmeterol [Advair Hfa 230-21 Mcg Inhaler] 2 puff IH BID 07/11/17 [History] Folic Acid 1 mg PO DAILY 07/11/17 [History] Nitroglycerin [Nitrostat] 0.4 mg SL Q5M PRN MDD [id number] call 911 07/11/17 [History] Potassium Chloride [Klor-Con 10] 10 meq PO DAILY 07/11/17 [History] Empagliflozin [Jardiance] 10 mg PO DAILY 01/20/18 [History] FLUoxetine HCl [Prozac] 60 mg PO DAILY 01/20/18 [History] Furosemide [Lasix] 80 mg PO BID 01/20/18 [History] Montelukast [Singulair] 10 mg PO DAILY 01/20/18 [History] Pramlintide Acetate [Symlinpen 120] 120 mg SQ TIDWM 01/20/18 [History] Albuterol Neb [Proventil Neb] 2.5 mg IH Q4HR PRN 04/11/18 [History] Isosorbide MONOnitrate (24 HR) [Imdur] 30 mg PO DAILY 04/11/18 [History] Magnesium Oxide [Magnesium] 400 mg PO DAILY 04/11/18 [History] Multivitamin [One Daily Multivitamin] 1 tab PO DAILY 04/11/18 [History] [place]-3/Dha/Epa/Fish Oil [Fish Oil 1,000 mg Softgel] 1 cap PO DAILY 04/11/18 [History] Insulin Regular U-500 [HumuLIN R U-500] 25 unit SQ TID 04/25/18 [History] Metoprolol Succinate [Toprol Xl] 50 mg PO DAILY 04/25/18 [History] Tiotropium [Spiriva] 1 puff IH DAILY 04/25/18 [History] Gabapentin [Neurontin] 800 mg PO QID #28 capsule 05/05/18 [Rx] Acetaminophen [Acetaminophen ER] 650 mg PO Q4H PRN 06/24/18 [History] Amlodipine Besylate 10 mg PO DAILY 06/24/18 [History] Pantoprazole Sodium [Protonix] 20 mg PO DAILY 06/24/18 [History] HYDROcodone/Acet 5/325 mg [Wendell 5-325 mg] 1 tab PO Q6HR PRN 5 Days #15 tablet 06/26/18 [Rx] OxyCODONE/APAP 10/325 [Percocet 10/325 MG] 1 each PO Q6HR PRN 5 Days #15 tablet 06/26/18 [Rx] ceFAZolin [Ancef] 2,000 mg IVPB Q8H #30 vial 06/26/18 [Rx] LORazepam [Ativan] 0.5 mg PO BID 06/29/18 [History] Allergy/AdvReac Type Severity Reaction Status Date / Time dapagliflozin [From [facility]] Allergy Hives Verified 01/20/18 19:08 naphazoline Allergy Hives Verified 01/20/18 19:08 cath DYE Allergy Hives Uncoded 01/20/18 19:08 - Meds/Allergy Pre-op Review Medications Reviewed: Yes Allergies Reviewed: Yes Beta Blockers on Current Med List: Yes If Beta Blockers taken, Date/Time (Last Dose taken): 06/30/2018 at 0819 Anesthesia Results - Labs 06/30/18 04:00 06/30/18 04:00 - Imaging EKG: report reviewed (04/26/2018 SINUS RHYTHM WITH FIRST DEGREE AV BLOCK NONSPECIFIC T-WAVE ABNORMALITY) Additional studies: 04/17/2018 ISRAEL Impressions: LVEF 55-60%. Normal LV size and function. Right ventricle was normal in size and systolic function. No pulmonary hypertension. No significant valvular dysfunction. No evidence of endocarditis. 04/11/2018 Echo Impressions: Technically sub-optimal due to body habitus. LVEF 55%. Normal LV chamber size, wall thickness and function. Moderate left ventricular diastolic dysfunction. Atypical septal motion consistent with post-operative status. Grossly normal right ventricular structure and function. Mild aortic sclerosis suggested by Doppler. Mean gradient 10 mmHg. No evidence of pulmonary hypertension. Inadequate images to evaluate for endocarditis. Consider ISRAEL if clinically indicated. Anesthesia Exam Vital Signs/O2 Sat/Glucose, Most Recent Temp Pulse Resp BP Pulse Ox 98.9 F 74 16 151/74 96 06/30/18 11:21 06/30/18 11:21 06/30/18 11:38 06/30/18 11:21 06/30/18 11:38 Blood Glucose* 166 Height: 5'6''/1.68m Weight: 301 lbs/136.6 kg - HEENT Pupil (Motor): EOMI Mallampati: III Teeth: Edentulous Oral Opening: Greater than 3 - CREEL CLEANER LOC: Oriented CREEL CLEANER Motor: Normal RUE, Normal LUE, Normal RLE, Normal LLE, Normal Face CREEL CLEANER Sensory: Normal: RUE, LUE, RLE, LLE, Face - Cardiac Rhythm: Regular Murmur: None - Pulmonary Breath Sounds: bilateral Clear Respiratory Effort: Symmetrical Anesthesia Assess/Plan ASA Score: 3 Level of consciousness: Cooperative, Oriented, Tranquil Anesthetic Plan: General, Regional Nerve Block Regional Nerve Block Plan: Popliteal Monitoring Plan: Standard Monitors Recovery Plan: PACU
[2018-06-30] MEDS ORDERED: ROPIVACAINE HCL/PF 0.5% 30 ML VIAL ONE (15:53)
[2018-06-30] MEDS ORDERED: *HR* FentaNYL (PF) 100 MCG/2 ML VIAL ONE (15:55)
[2018-06-30] MEDS ORDERED: *HR* Midazolam HCl 2 MG/2 ML VIAL ONE (15:55)
--- NOTE | 2018-06-30 16:22 | Anesthesia Procedures ---
Date of Encounter: 06/30/18 Time of Encounter: 16:00 Procedures: Anesthesia - Nerve Block Procedure Date: 06/30/18 Time: 16:00 Allergies/Adv Reactions: dapagliflozin, naphazoline, cath dye Pre-op Diagnosis: Right ankle fracture, right tibia fracture Surgical Procedure: right revision ex fix ankle, right tibia IM nail Checklist: Correct Patient Identifier, Correct procedure, History checked Correct side: Right Blood Thinner: No Monitor Applied: EKG, BP, Pulse Oximetry Supplemental Oxygen via Nasal Cannula (L/min): 3 Sedation: Versed (mg): 2 Sedation: Fentanyl (mcg): 100 Indication: Post Op Analgesia Pre-op Neuro Deficits: No Block Type: Popliteal Catheter placed: No Sterile Technique: Yes Ultrasound used: Yes Anatomy identified: Yes Visual spread of Local: Yes Neuro Stimulation: No Blood on Needle Aspiration: No Smooth Injection of Local: Yes Pain with Injection of Local: No Prep: Chlorhexadine Needle: 21 x 100 mm Stimuplex Local: Ropivacaine (0.5% 30ml), Other (Decadron 8mg) Volume (cc): 32 Number of Attempts: 1 Complications: None/effective block Vitals: 1600 BP 114/63 P 75 spo2 97 1605 BP 125/73 P 74 R 16 spo2 97 1610 BP 109/72 P 74 R 16 spo2 97
--- NOTE | 2018-06-30 16:22 | Operative Note ---
Date of procedure: 06/30/18 Pre-op diagnosis: Displaced right tibia fracture, external fixation device in place Post-op diagnosis: same Procedure: Adjustment of external fixation right lower extremity Implants: Skinny wires Complications: none Anesthesia: ALMA ROSAA Surgeon: Segundo Harrington Was there an enrichment assistant present: No Estimated blood loss (cc): 40 Specimen: none Condition: stable Disposition: PACU Procedure in Detail: Indications: 63-year-old diabetic male who sustained injury when he returned to halfway and he experienced redislocation of his proximal tibia fracture. Orthopedics was consulted and the above procedure was done in combination with orthopedics for intramedullary fixation of his tibial fracture. The nature of the procedures, risks versus benefits potential complications consequences of his condition and surgery discussed at length. No guarantees were made as to the outcome his fracture would heal or that his fusion site at the ankle would heal and his limb would be salvaged. All of his questions have been answered and informed consent was signed. Patient was given a popliteal block by anesthesia brought to the operating room placed on operating room table in the supine position. Following induction of general anesthesia, I removed the external fixation frame and the right lower extremity was scrubbed prepped and draped in the usual sterile fashion and Dr. Soriano performed the ORIF of the tibial fracture. After his portion of the procedure was done the right lower extremity was reprepped and the following procedure began Adjustment of external fixation frame. Attention was directed to the right lower extremity and fixation frame was built to be applied below the level of the intramedullary nail fixation. The fixation device was applied and wires thrown in the distal tibia and in the foot. A calcaneal wire was utilized in a bent wire technique to add compression across the tibiocalcaneal fusion zone. Wires in the foot and distal tibia were appropriately tensioned. C-arm was utilized to confirm position and alignment and apposition of the fusion zone. It should be noted that while the external fixation frame was off stressing the fusion zone the site did not appear have increased motion or to be unstable. The foot and ankle and the external fixation frame were in good position and alignment and C-arm was utilized to confirm apposition of the tibiocalcaneal fusion zone. The external fixation pins were wrapped in Xeroform, ludmila and kerlix. Patient was brought to the recovery room with adequate hemostasis and vascular status intact to the right lower extremity. Elevation. Patient on bedrest and given strict instructions for nonweightbearing to the right lower extremity and the family was also made aware he is to be strictly non-weight bearing on the right lower extremity. Patient to return to floor.
--- NOTE | 2018-06-30 16:29 | Electrocardiograph Report ---
[address] [address] Test Date: 2018-06-30 Pat Name: Noe Newsome Department: 114 Room: [facility] Gender: M Beekeeper: : 1955 Requested By: Kathy Huffman Order Number: [id number] Reading MD: Harley Cee Measurements Intervals [place] Rate: 76 P: 43 ME: 252 QRS: 28 QRSD: 104 T: 85 QT: 396 QTc: 426 Interpretive Statements SINUS RHYTHM WITH FIRST DEGREE AV BLOCK EARLY R WAVE TRANSITION, POSSIBLE RVH NONSPECIFIC ST & T-WAVE ABNORMALITY Electronically Signed On 06-30-2018 16:27:51 EST by Harley Cee
[2018-06-30] MEDS ORDERED: *HR* Propofol 200 MG/20 ML VIAL IVP ONE (16:30)
[2018-06-30] MEDS ORDERED: Ondansetron 4 MG/2 ML VIAL ONE (16:31)
[2018-06-30] MEDS ORDERED: Dexamethasone 4 MG/ML VIAL ONE (16:31)
[2018-06-30] MEDS ORDERED: Lidocaine -MPF 2% 2 ML VIAL ONE (16:31)
[2018-06-30] MEDS ORDERED: *HR* OxyCODONE Immed Rel 5 MG TABLET PO PRN (17:21)
[2018-06-30] MEDS ORDERED: *HR* Labetalol 20 MG/4 ML SYRINGE IVP PRN (17:21)
[2018-06-30] MEDS ORDERED: Albuterol 2.5 MG/3 ML NEBULIZER IH ONE (17:21)
--- NOTE | 2018-06-30 17:44 | Orthopedic Operative Note ---
Date of procedure: 06/30/18 Pre-op diagnosis: Displaced left proximal third tibia fracture Post-op diagnosis: same Procedure: Procedure: Left tibia open reduction intramedullary nail fixation Estimated blood loss: 200cc Hardware: synthes tibial nail 9 x 270 mm ; 2 locking bolts: Patient was brought to the operating room and placed on the operating room table. After general anesthesia was administered. The external fixator was removed as well as the pins with Dr. Harrington. The operative leg was prepped and draped in the sterile surgical fashion. The patient received IV antibiotics prior to skin incision. A medial parapatellar tendon approach was performed the incision was made through the skin and subcutaneous tissue. Hemostasis was obtained with Bovie cautery. A medial parapatellar tendon incision was made, the entry point was identified. This was confirmed with fluoroscopy. Using fluoroscopic assistance a guidepin was placed at the entry point. It was overreamed with the proximal reamer. A beaded guidewire was placed through the entry hole down the tibia across the fracture site into the distal fragment was confirmed with fluoroscopy. The tibia was sized and the appropriate nail length was placed over the guidepin down the proximal tibia across the fracture site into the distal fragment. Position of the hardware as well as fracture reduction was confirmed with fluoroscopy to be well aligned. Utilizing the proximal locking guide proximal locking goal was placed through a medial incision. This was confirmed with fluoroscopy. Distal fixation was performed utilizing fluoroscopy from medial to lateral and standard AO techniques. Position of the hardware as well as fracture reduction found to be acceptable in the AP and lateral planes. The incisions were irrigated, locking both incisions were closed with skin eulalia, the medial parapatellar tendon approach was closed with a running #1 PDS suture, subcutaneous tissues during closed deep #1 PDS suture superficially with 0 PDS suture skin was closed with skin eulalia and Dermabond. At this point in time, I left the operating room, Dr. Harrington was going to finish with his procedure. I went out to talk to the family. Anesthesia: GETA Surgeon: Jeremias Soriano Was there an restaurant assistant manager present: No Estimated blood loss (cc): 200 Condition: stable Disposition: other (Patient still in operating room for Dr. Harrington portion of the procedure)
[2018-06-30] MEDS: *HR* HYDROmorphone (PF) 1 MG/ML SYRINGE IVP PRN ×2 (19:42→20:01)
[2018-06-30] MEDS: *HR* Promethazine 25 MG/ML VIAL IVP PRN ×2 (19:46→20:09)
[2018-06-30 20:02] LABS: Hematocrit 35.7 % (37.5-50.1); Hemoglobin 11.2 g/dL (12.9-16.9)
[2018-06-30] MEDS ORDERED: Dextrose Gel 15 GM/37.5 ML TUBE PO PRN (20:30)
[2018-06-30] MEDS ORDERED: Temazepam 15 MG CAPSULE PO PRN (20:30)
[2018-06-30] MEDS ORDERED: Ipratropium/Albuterol Neb 3 ML IH PRN (20:30)
[2018-06-30] MEDS ORDERED: Sennosides 8.6 MG TABLET PO PRN (20:30)
[2018-06-30] MEDS ORDERED: Naloxone 0.4 MG/ML INJ IVP PRN (20:30)
[2018-06-30] MEDS ORDERED: *HR* Dextrose 50 % in Water (Syg) 50 ML SYRINGE IVP PRN (20:30)
[2018-06-30] MEDS ORDERED: D5% in Water 1,000 ML IVC PRN (20:30)
[2018-06-30] MEDS ORDERED: MOM Conc 10 ML UD.LIQ PO PRN (20:30)
[2018-06-30] MEDS ORDERED: *HR* Heparin 5,000 UNIT/ML VIAL SQ SCH (22:00)
[2018-06-30] MEDS: ceFAZolin sodium 3,000 MG in 0.9 % Sodium Chloride 100 ML IVPB SCH (23:15)
[2018-07-01] MEDS: *HR* OxyCODONE/APAP 10/325 TABLET PO PRN ×4 (01:11→17:14)
[2018-07-01 03:04] LABS: Basophils % 0.1 %; Eosinophils % 0.1 %; Hematocrit 31.9 % (37.5-50.1); Hemoglobin 9.9 g/dL (12.9-16.9); Immature Granulocytes % 1.1 % (0-4); Immature Platelets 4.1 % (1.1-6.1); Lymphocytes # 0.5 K/mcL (0.6-4.6); Lymphocytes % 3.6 %; Mean Corpuscular Hemoglobin 26.1 pg (28.0-33.3); Mean Corpuscular Volume 84.2 fL (83.0-100.0); Monocytes # 0.2 K/mcL (0.0-1.3); Monocytes % 1.2 %; Neutrophils # 13.9 K/mcL (1.6-8.9); Platelet Count 334 K/mcL (140-400); Red Blood Count 3.79 M/mcL (4.19-5.50); Red Cell Distribution Width 15.3 % (11.5-14.5); Segmented Neutrophils % 93.9 %
[2018-07-01 03:23] LABS: BUN/Creatinine Ratio 27 (6-26); Blood Urea Nitrogen 21 mg/dL (8-23); Calcium 8.1 mg/dL (8.6-10.3); Carbon Dioxide 23 mEq/L (23-29); Chloride 99 mEq/L (98-107); Glucose 358 mg/dL (70-105); Osmolality,Calculated 289 (280-300); Potassium 4.1 mEq/L (3.5-5.1); Sodium 131 mEq/L (136-145); eGFR For Non-African Americans > 60 (> 60)
[2018-07-01] MEDS: Budesonide/Formoterol 160/4.5 1 PUFF INH IH SCH ×2 (08:05→20:51)
[2018-07-01] MEDS: Tiotropium 18 MCG inhalation IH SCH (08:06)
[2018-07-01] MEDS: ceFAZolin sodium 3,000 MG in 0.9 % Sodium Chloride 100 ML IVPB SCH (09:40)
[2018-07-01] MEDS: Isosorbide MONOnitrate (24 HR) 30 MG TAB.ER.24H PO SCH (09:41)
[2018-07-01] MEDS: Gabapentin 400 MG CAPSULE PO SCH ×4 (09:41→20:56)
[2018-07-01] MEDS: Metoprolol XL (24 HR) Succ 50 MG TAB.ER.24H PO SCH (09:42)
[2018-07-01] MEDS: amLODIPine 5 MG TABLET PO SCH (09:42)
[2018-07-01] MEDS: Folic Acid 1 MG TABLET PO SCH (09:42)
[2018-07-01] MEDS: Magnesium Oxide 400 MG TABLET PO SCH (09:43)
[2018-07-01] MEDS: FLUoxetine 20 MG CAPSULE PO SCH (09:43)
[2018-07-01] MEDS: Aspirin 81 MG TAB.CHEW PO SCH (09:43)
[2018-07-01] MEDS: Furosemide 40 MG TABLET PO SCH ×2 (09:49→17:14)
[2018-07-01] MEDS: Insulin LISPRO 300 UNITS/3 ML VIAL SQ SCH ×4 (09:50→20:57)
--- NOTE | 2018-07-01 10:58 | Internal Med Progress Note ---
<Hallie Cordova - Last Filed: 07/01/18 13:54> Hospitalist Progress Note - Encounter Date of Encounter: 07/01/18 Time of Encounter: 10:58 - Subjective Interval History: Patient seen and examined at bedside. He is alert and oriented times 3. His is that bedside. His only complaint is his right foot pain. Denies fever, chills, shortness of breath, chest pain, abdominal pain, nausea. - Exam Vitals: Temp Pulse Resp BP Pulse Ox 97.4 F L 86 18 123/72 90 07/01/18 07:22 07/01/18 07:22 07/01/18 08:07 07/01/18 07:22 07/01/18 08:07 Exam: Gen.: Vitals noted. No acute distress. AAOx3 HEENT: oropharynx clear, Normocephalic, atraumatic Neck: Supple. No adenopathy. Cardiac: RRR, no murmur, +S1/S2, no BLE edema Pulmonary: CTA bilaterally, no wheezes, rales or rhonchi, equal chest expansion Abdomen: soft, nontender, Bowel sounds noted, no guarding Extremities: tenderness to right leg, decreased sensation of right plantar surface. Right lower extremity is a charcot foot. He has a halo and pins is right foot and ankle. Neuro: A&Ox3, moves all extremities, no focal deficits Psych: Appropriate mood and behavior - Assessment and Plan (1) Right tibial fracture Current Visit: Yes Status: Acute Assessment and Plan: Patient has both a proximal and mid shaft fracture of the R tibia. Pt. states this is his 2nd fracture of the R tibia, and that his first occurred on when he was trying to get into bed. He swung his R leg into bed and it "popped and cracked" causing him extreme pain. he had surgery for it that Tuesday, was in the hospital at [facility] for a few days, then was discharged./ Patient states he was at [facility] Tuesday (06/[facility]/18) and needed to get an updated body weight, and during this his R leg popped/cracked again and he had extreme pain similar to his first fracture. He says he came to see Dr. Harrington today at the wound clinic b/c of a wound on his R ankle. Dr. Harrington had a Xray don e today and states a new fracture is present, which is when he came to the ED. Xrays of the ankle showed a mid-shaft tibial fracture, and Xrays of the tibia/fibula showed a proximal tibial fracture. Patient had external fixation completed by his fur blower operator in May. Plan: -Orthopedics to take patient to OR for surgery today -continue strict nonweightbearing to the right lower extremity -Currently takes oxycodone for pain. (2) Leukocytosis Current Visit: No Status: Resolved Assessment and Plan: Leukocytosis 14.3 at admission afebrile WBC 14.8, yesterday 12.7 improved Etiology is likely d/t the osteomyelitis he is currently being treated for of his R ankle. Pt denies any respiratory or urinary complaints. This could potentially also be secondary to the new acute fracture. Plan: -Continue to monitor WBC count, slightly increased today -Will continue ancef per ID day 3 in the hospital -blood cultures not taken as the patient has been on IV antibiotics outpatient (3) History of osteomyelitis Current Visit: No Status: Chronic Assessment and Plan: Patient had osteomyelitis w/ (+) blood culture for MSSA at last admission on 05/05/18. Was placed on IV ancef by ID and was supposed to continue for at least 6weeks. He was supposed to have an appt w/ ID on 06/28/18 that he did not go to the appointment due to new fracture. Plan: -Continue ancef per ID -We consulted ID for further management of osteomyelitis and abx regimen since they were following the patient outpatient (4) Anemia Current Visit: No Status: Acute Assessment and Plan: Anemia in setting of recent orthopedic surgery. Hemoglobin 9.9, yesterday 11.2 no obvious active bleeding normocytic MCV, RDW elevated -will continue to monitor hemoglobin and for bleeding -recheck hemoglobin at 2 PM today -holding heparin for DVT prophylaxis and home Plavix due to decrease and hemoglobin (5) Charcot's joint of foot Current Visit: Yes Status: Chronic Assessment and Plan: This is a chronic issue. (6) CAD (coronary artery disease) Current Visit: No Status: Chronic Assessment and Plan: He has a history of CAD, but denies chest pain today. Plan: -Hold Plavix for surgery -Continue other home medications such as amlodipine, ASA, metoprolol, lasix, imdur, and atorvastatin (7) Asthma Current Visit: No Status: Chronic Assessment and Plan: History of chronic asthma, controlled, not an exacerbation today. Plan: -Continue home inhalers -Duonebs PRN (8) Type II diabetes mellitus Current Visit: No Status: Chronic Assessment and Plan: This is a chronic T2DM patient on insulin. Glucose elevated today Plan: -restarted patient's U-500 Humulin 25TID with the assistance of pharmacy -Patient will be on sliding scale insulin (medium dose) -Continue checking acu-cheks -Diabetic diet (9) BROCK (obstructive sleep apnea) Current Visit: No Status: Chronic Assessment and Plan: Plan: -Order CPAP for bedtime (10) DVT prophylaxis Current Visit: No Status: Acute Assessment and Plan: Holding SQ heparin q8hrs due to anemia with decrease in hemoglobin today - Time Spent with Patient Total time spent is greater than 50% in coordination of care (as documented) at patient's floor/unit and/or counseling patient: Internal Medicine: Result - Labs CBC & Chem 7: 07/01/18 02:52 07/01/18 02:52 Labs: Short CBC 06/30/18 07/01/18 Range/Units 19:52 02:52 WBC 14.8 H (4.3-11.1) K/mcL Hgb 11.2 L 9.9 L (12.9-16.9) g/dL Hct 35.7 L 31.9 L (37.5-50.1) % Plt Count 334 (140-400) K/mcL Neutrophils # 13.9 H (1.6-8.9) K/mcL BMP 07/01/18 02:52 Sodium 131 L Potassium 4.1 Chloride 99 Carbon Dioxide 23 BUN 21 Creatinine 0.78 Glucose 358 H Calcium 8.1 L - ABG Interpretation ABG results: PT/INR, D-dimer PT 13.3 Seconds (9.4-12.1) H 06/30/18 04:49 - Impressions Impressions Tibia/Fibula X-Ray 06/30/18 16:08 IMPRESSION: Postoperative images of the right lower extremity. D/ / Melva Singh Cha, MD / Melva Singh Cha, MD Interpreting Provider: Melva Singh Cha, MD Fluoroscopy 06/30/18 17:05 IMPRESSION: Intraoperative images. See procedure note for further details. D/ / Melva Singh Cha, MD / Melva Singh Cha, MD Interpreting Provider: Melva Singh Cha, MD Consult Discharge Plan - Plan Referrals: Myron Henderson [Primary Care Provider] - <Kathy Huffman - Last Filed: 07/01/18 15:24> Hospitalist Progress Note - Encounter Date of Encounter: 07/01/18 - Exam Vitals: Temp Pulse Resp BP Pulse Ox 98.9 F 92 16 115/67 95 07/01/18 11:41 07/01/18 11:41 07/01/18 11:41 07/01/18 11:41 07/01/18 11:41 - Assessment and Plan (1) CAD (coronary artery disease) Current Visit: No Status: Chronic (2) Asthma Current Visit: No Status: Chronic (3) DVT prophylaxis Current Visit: No Status: Acute (4) Leukocytosis Current Visit: No Status: Resolved (5) BROCK (obstructive sleep apnea) Current Visit: No Status: Chronic (6) Type II diabetes mellitus Current Visit: No Status: Chronic (7) Charcot's joint of foot Current Visit: Yes Status: Chronic (8) Right tibial fracture Current Visit: Yes Status: Acute (9) History of osteomyelitis Current Visit: No Status: Chronic - Time Spent with Patient Total time spent is greater than 50% in coordination of care (as documented) at patient's floor/unit and/or counseling patient: Internal Medicine: Result - Labs CBC & Chem 7: 07/01/18 02:52 07/01/18 02:52 Labs: Short CBC 06/30/18 07/01/18 Range/Units 19:52 02:52 WBC 14.8 H (4.3-11.1) K/mcL Hgb 11.2 L 9.9 L (12.9-16.9) g/dL Hct 35.7 L 31.9 L (37.5-50.1) % Plt Count 334 (140-400) K/mcL Neutrophils # 13.9 H (1.6-8.9) K/mcL BMP 07/01/18 02:52 Sodium 131 L Potassium 4.1 Chloride 99 Carbon Dioxide 23 BUN 21 Creatinine 0.78 Glucose 358 H Calcium 8.1 L - ABG Interpretation ABG results: PT/INR, D-dimer PT 13.3 Seconds (9.4-12.1) H 06/30/18 04:49 - Impressions Impressions Tibia/Fibula X-Ray 06/30/18 16:08 IMPRESSION: Postoperative images of the right lower extremity. D/ / Melva Singh Cha, MD / Melva Singh Cha, MD Interpreting Provider: Melva Singh Cha, MD Fluoroscopy 06/30/18 17:05 IMPRESSION: Intraoperative images. See procedure note for further details. D/ / Melva Singh Cha, MD / Melva Singh Cha, MD Interpreting Provider: Melva Singh Cha, MD - Attending Attestation I examined this patient and my medical decision-making was reviewed with the Resident Physician Dr Cordova. I agree with the documented findings, disposition and treatment plan as described except to the extent set forth below. Mr Newsome has pmhx recent ankle fusions, complicated by a right tibial fracture - external fixation device, charcot foot, right ankle wound with MSSA osteomyelitis around the right ankle followed by ID awake, comfortable in bed and pain currently tolerable. no fevers, chills, bm this morning, eating and drinking without difficulty. gen- alert, awake,appears stated age, obese, very comofrtable appearing cv- reg rate and rhythm, warm extremities, cannot appreciate RLE edema due to post op dressing, no pitting edema of LLE lungs- ctabl, no wheezing, rhonchi or crackles normal resp effort on room air neuro- AAOx3 Right Tibial fracture s/p R tibial IMN, adjustment of ex fix- ortho and podiatry following, prn pain control, NWB RLE Right ankle wound with MSSA osteomyelitis Leukocytosis, afebrile -his ID team is following, ancef DM, hyperglcemia-he has no tfilled Regular U 500 insulin per his pharmacy since april, and wasnot on it last admit here per our pharmacy, will beign levemir 10 units bid based on weight and bs here + ssi Acute Blood Loss anemia, post op as above- hgb 9.9 from 11.2, holding home plavix (held since admit), serial h/hs and monitoring on vte ppx psot op given so high risk for dvt further diagnoses and treatment as documented by resident vte ppx scd lle only <Hallie Cordova - Last Filed: 07/01/18 13:54> (1) Right tibial fracture Qualifiers: Encounter type: initial encounter Tibia location: shaft Fracture type: closed Fracture morphology: transverse Fracture alignment: displaced Qualified Code(s): S82.221A - Displaced transverse fracture of shaft of right tibia, initial encounter for closed fracture (2) Leukocytosis Qualifiers: Leukocytosis type: bandemia Qualified Code(s): D72.825 - Bandemia (4) Anemia Qualifiers: Anemia type: unspecified type Qualified Code(s): D64.9 - Anemia, unspecified (5) Charcot's joint of foot Qualifiers: Laterality: right Qualified Code(s): M14.671 - Charcot's joint, right ankle and foot (6) CAD (coronary artery disease) Qualifiers: Coronary Disease-Associated Artery/Lesion type: tribe artery [place] vs. transplanted heart: tribe heart Associated angina: without angina Qualified Code(s): I25.10 - Atherosclerotic heart disease of tribe coronary artery without angina pectoris (7) Asthma Qualifiers: Asthma severity: unspecified severity Asthma persistence: unspecified Asthma complication type: uncomplicated Qualified Code(s): J45.909 - Unspecified asthma, uncomplicated (8) Type II diabetes mellitus Qualifiers: Diabetes mellitus roasterman insulin use: with roasterman use Diabetes mellitus complication status: with diabetic arthropathy Qualified Code(s): E11.610 - Type 2 diabetes mellitus with diabetic neuropathic arthropathy; Z79.4 - retirement (current) use of insulin <Kathy Huffman - Last Filed: 07/01/18 15:24> (1) CAD (coronary artery disease) Qualifiers: Coronary Disease-Associated Artery/Lesion type: tribe artery [place] vs. transplanted heart: tribe heart Associated angina: without angina Qualified Code(s): I25.10 - Atherosclerotic heart disease of tribe coronary artery without angina pectoris (2) Asthma Qualifiers: Asthma severity: unspecified severity Asthma persistence: unspecified Asthma complication type: uncomplicated Qualified Code(s): J45.909 - Unspecified asthma, uncomplicated (4) Leukocytosis Qualifiers: Leukocytosis type: bandemia Qualified Code(s): D72.825 - Bandemia (6) Type II diabetes mellitus Qualifiers: Diabetes mellitus roasterman insulin use: with long-term use Diabetes mellitus complication status: with diabetic arthropathy Qualified Code(s): E11.610 - Type 2 diabetes mellitus with diabetic neuropathic arthropathy; Z79.4 - keno terminal operator (current) use of insulin (7) Charcot's joint of foot Qualifiers: Laterality: right Qualified Code(s): M14.671 - Charcot's joint, right ankle and foot (8) Right tibial fracture Qualifiers: Encounter type: initial encounter Tibia location: shaft Fracture type: closed Fracture morphology: transverse Fracture alignment: displaced Qualified Code(s): S82.221A - Displaced transverse fracture of shaft of right tibia, initial encounter for closed fracture
[2018-07-01] MEDS: Ondansetron 4 MG/2 ML VIAL IVP PRN (12:02)
--- NOTE | 2018-07-01 12:39 | Orthopedics Progress Note ---
Date of Encounter: 07/01/18 Time of Encounter: 12:39 Subjective Interval history: Doing fine POD#1 s/p R tibial IMN, adjustment of ex fix. Pain present, as expected. AFVSS GEN: NAD, AAOx3 LUE: Dress c/d/i Neuro exam at baseline No calf pain or TTP s/p R tibial IMN, adjustment of ex fix PO pain control Strict NWB RLE Continue current postop mgmt Objective Vital signs: Vital Signs Temp Pulse Resp BP Pulse Ox 07/01/18 11:41 98.9 F 92 16 115/67 95 07/01/18 08:07 18 90 07/01/18 07:22 97.4 F L 86 18 123/72 95 07/01/18 04:19 97.5 F L 84 15 115/67 100 06/30/18 23:30 97.8 F 79 15 106/60 96 06/30/18 22:30 97.5 F L 75 17 108/63 95 06/30/18 21:30 97.6 F 73 16 108/66 95 06/30/18 21:03 18 96 06/30/18 21:00 97.6 F 70 15 110/68 94 06/30/18 20:30 97.5 F L 77 15 105/64 96 06/30/18 20:20 97.5 F L 73 12 122/60 93 06/30/18 20:10 97.5 F L 73 12 110/56 95 06/30/18 20:00 97.5 F L 73 12 126/68 96 06/30/18 19:50 70 12 114/66 94 06/30/18 19:40 69 12 125/64 96 06/30/18 19:30 97.5 F L 68 14 123/62 94 Intake and Output 06/30/18 07/01/18 07/01/18 23:59 07:59 15:59 Intake Total 3360 / 3360 500 / 500 Output Total 615 / 615 1800 / 1800 1200 / 1200 Balance 2745 / 2745 -1300 / -1300 -1200 / -1200 Intake: IV Fluids 100 / 100 Ancef 3,000 MG In 0.9 % Sodium 100 / 100 Chloride 100 ML @ 200 mls/hr IVPB Q8HR [facility] Rx#:[id number] Oral 3260 / 3260 500 / 500 Output: Estimated Blood Loss 140 / 140 Catheter 475 / 475 1800 / 1800 1200 / 1200 Other: Stool Size Copious Stool Consistency loose liquid Stool Color Brown # Bowel Movements 1 # Bowel Movement Diapers 1 Weight 136.5 kg Blood Glucose* 217 280 252 Patient Weight 07/01/18 23:59 Weight 136.5 kg - Labs CBC & BMP: 07/01/18 02:52 07/01/18 02:52 Labs: Abnormal lab results WBC 14.8 K/mcL (4.3-11.1) H 07/01/18 02:52 RBC 3.79 M/mcL (4.19-5.50) L 07/01/18 02:52 Hgb 9.9 g/dL (12.9-16.9) L 07/01/18 02:52 Hct 31.9 % (37.5-50.1) L 07/01/18 02:52 MCH 26.1 pg (28.0-33.3) L 07/01/18 02:52 MCHC 31.0 g/dL (31.6-35.5) L 07/01/18 02:52 RDW 15.3 % (11.5-14.5) H 07/01/18 02:52 Neutrophils # 13.9 K/mcL (1.6-8.9) H 07/01/18 02:52 Lymphocytes # 0.5 K/mcL (0.6-4.6) L 07/01/18 02:52 PT 13.3 Seconds (9.4-12.1) H 06/30/18 04:49 Sodium 131 mEq/L (136-145) L 07/01/18 02:52 BUN/Creatinine Ratio 27 (6-26) H 07/01/18 02:52 Glucose 358 mg/dL (70-105) H 07/01/18 02:52 POC Glucose 166 mg/dL (70-99) H 06/30/18 11:18 Calcium 8.1 mg/dL (8.6-10.3) L 07/01/18 02:52 Consult Discharge Plan - Plan Referrals: Myron Henderson [Primary Care Provider] -
[2018-07-01] MEDS ORDERED: *HR* Insulin Regular U-500 500 UNIT/ML SQ SCH (17:00)
--- NOTE | 2018-07-01 18:17 | Event Note ---
Date of Encounter: 07/01/18 Time of Encounter: 18:00 Contacted by RN if to give heparin sq tonight or not, if hgb is stable then yes, as he is high risk for dvt. On chart review now, stat 2pm hgb remains uncollected. Heparin sq is now held again, as cannot safely give without confirmation of hemoglobin. another stat hgb ordered and awaiting result. Ok to hold heparin this evening
[2018-07-01 19:06] LABS: Hematocrit 28.2 % (37.5-50.1); Hemoglobin 8.8 g/dL (12.9-16.9)
[2018-07-01] MEDS ORDERED: traMADol 50 MG TABLET PO ONE (20:05)
[2018-07-01] MEDS ORDERED: Insulin DETEMIR 100 UNIT/ML X5UNITS SQ SCH (21:00)
[2018-07-02] MEDS: *HR* OxyCODONE/APAP 10/325 TABLET PO PRN ×5 (00:05→21:19)
[2018-07-02 00:32] LABS: Hematocrit 27.2 % (37.5-50.1); Hemoglobin 8.6 g/dL (12.9-16.9)
[2018-07-02] MEDS ORDERED: 0.9 % Sodium Chloride 250 ML ONE (02:58)
[2018-07-02 03:51] LABS: Basophils % 0.2 %; Eosinophils % 0.2 %; Hematocrit 26.3 % (37.5-50.1); Hemoglobin 8.4 g/dL (12.9-16.9); Immature Granulocytes % 0.9 % (0-4); Lymphocytes # 1.5 K/mcL (0.6-4.6); Lymphocytes % 11.9 %; Mean Corpuscular HGB Conc 31.9 g/dL (31.6-35.5); Mean Corpuscular Hemoglobin 26.5 pg (28.0-33.3); Mean Platelet Volume 11.7 fL (9.4-12.4); Monocytes # 1.1 K/mcL (0.0-1.3); Monocytes % 8.5 %; Neutrophils # 9.7 K/mcL (1.6-8.9); Platelet Count 315 K/mcL (140-400); Red Blood Count 3.17 M/mcL (4.19-5.50); Red Cell Distribution Width 15.4 % (11.5-14.5); Segmented Neutrophils % 78.3 %
[2018-07-02 03:59] LABS: BUN/Creatinine Ratio 23 (6-26); Blood Urea Nitrogen 15 mg/dL (8-23); Calcium 7.9 mg/dL (8.6-10.3); Carbon Dioxide 26 mEq/L (23-29); Chloride 96 mEq/L (98-107); Glucose 341 mg/dL (70-105); Osmolality,Calculated 282 (280-300); Potassium 3.4 mEq/L (3.5-5.1); Sodium 129 mEq/L (136-145); eGFR For Non-African Americans > 60 (> 60)
[2018-07-02] MEDS: Ondansetron 4 MG/2 ML VIAL IVP PRN ×2 (04:38→11:00)
--- NOTE | 2018-07-02 05:22 | Event Note ---
Date of Encounter: 07/01/18 Time of Encounter: 19:28 Alerted by patient's nurse ARI Gregorio the patient's SQ heparin was on hold due to drop in Hgb. H&H on 11:30 was 11.2 and 35.7. Early on 12, H&H was 9.9 and 31.9. This evening H&H was 8.8 and 28.2. Nurse instructed to hold SQ heparin and repeat H&H was ordered for 23:00 as well as a type and screen. Called Dr. Soriano to alert him of patient's current status and notify him of holding SQ heparin, repeat H&H's, and type and screen. Discussed possibility of CT of patient's right ankle which Dr. Soriano felt was unnecessary at this time w/recommendation to monitor H&H and transfuse before drop became too significant. Pts. blood type is O+ with negative antibody screen. H&H from 23:00 showed 8.6, down from 8.8 previously. Transfusion order placed for 1 unit. Repeat H&H to be drawn at 04:00. I appreciate the consult and recommendations as always. Will manage pts. pain overnight and continue to monitor f/u labs to determine if additional units of PRBCs are appropriate. Pts. BP was low, so Ultram ordered for breakthrough pain. Will continue to monitor pt. closely overnight.
[2018-07-02 06:55] LABS: Hemoglobin 9.1 g/dL (12.9-16.9)
[2018-07-02] MEDS: Tiotropium 18 MCG inhalation IH SCH (08:05)
[2018-07-02] MEDS: Budesonide/Formoterol 160/4.5 1 PUFF INH IH SCH ×2 (08:06→19:15)
[2018-07-02] MEDS: amLODIPine 5 MG TABLET PO SCH (08:16)
[2018-07-02] MEDS: Metoprolol XL (24 HR) Succ 50 MG TAB.ER.24H PO SCH (08:16)
[2018-07-02] MEDS: Furosemide 40 MG TABLET PO SCH ×2 (08:16→16:56)
[2018-07-02] MEDS: Isosorbide MONOnitrate (24 HR) 30 MG TAB.ER.24H PO SCH (08:23)
--- NOTE | 2018-07-02 08:28 | Orthopedics Progress Note ---
Date of Encounter: 07/02/18 Time of Encounter: 08:27 Subjective Interval history: Doing fine POD#2 s/p R tibial IMN, adjustment of ex fix. Resting comfortably. AFVSS GEN: NAD, AAOx3 LUE: Dress c/d/i Neuro exam at baseline s/p R tibial IMN, adjustment of ex fix PO pain control Strict NWB RLE Continue current postop mgmt Defer to Dr Harrington for dressing/ex fix management Objective Vital signs: Vital Signs Temp Pulse Resp BP Pulse Ox 07/02/18 08:05 18 96 07/02/18 06:24 98.3 F 69 18 110/66 96 07/02/18 05:30 98.1 F 68 16 115/68 96 07/02/18 05:29 98.1 F 68 16 115/68 96 07/02/18 03:25 97.9 F 71 16 116/67 96 07/02/18 03:10 97.9 F 72 16 112/57 07/01/18 23:52 98.1 F 74 18 121/64 96 07/01/18 21:10 97 07/01/18 20:54 16 95 07/01/18 18:53 98.5 F 78 16 101/55 97 07/01/18 14:15 98.7 F 95 16 117/64 96 07/01/18 11:41 98.9 F 92 16 115/67 95 Intake and Output 07/01/18 07/02/18 07/02/18 23:59 07:59 15:59 Intake Total 0 / 0 1350 / 1350 Output Total 3400 / 3400 2450 / 2450 Balance -3400 / -3400 -1100 / -1100 Intake: Oral 0 / 0 1200 / 1200 Blood Product 150 / 150 Rbcs Leuko Poor As-1 Unit 150 / 150 [id number] Output: Catheter 3400 / 3400 2450 / 2450 Other: Weight 136.8 kg Blood Glucose* 324 308 Patient Weight 07/02/18 23:59 Weight 136.8 kg - Labs CBC & BMP: 07/02/18 06:48 07/02/18 03:10 Labs: Abnormal lab results WBC 12.5 K/mcL (4.3-11.1) H 07/02/18 03:10 RBC 3.17 M/mcL (4.19-5.50) L 07/02/18 03:10 Hgb 9.1 g/dL (12.9-16.9) L 07/02/18 06:48 Hct 29.0 % (37.5-50.1) L 07/02/18 06:48 MCH 26.5 pg (28.0-33.3) L 07/02/18 03:10 RDW 15.4 % (11.5-14.5) H 07/02/18 03:10 Neutrophils # 9.7 K/mcL (1.6-8.9) H 07/02/18 03:10 PT 13.3 Seconds (9.4-12.1) H 06/30/18 04:49 Sodium 129 mEq/L (136-145) L 07/02/18 03:10 Potassium 3.4 mEq/L (3.5-5.1) L 07/02/18 03:10 Chloride 96 mEq/L (98-107) L 07/02/18 03:10 Creatinine 0.64 mg/dL (0.70-1.30) L 07/02/18 03:10 Glucose 341 mg/dL (70-105) H 07/02/18 03:10 POC Glucose 217 mg/dL (70-99) H 06/30/18 20:38 Calcium 7.9 mg/dL (8.6-10.3) L 07/02/18 03:10 Consult Discharge Plan - Plan Referrals: Myron Henderson [Primary Care Provider] -
[2018-07-02] MEDS: FLUoxetine 20 MG CAPSULE PO SCH (08:40)
[2018-07-02] MEDS: Magnesium Oxide 400 MG TABLET PO SCH (08:41)
[2018-07-02] MEDS: Insulin LISPRO 300 UNITS/3 ML VIAL SQ SCH ×4 (08:41→21:08)
[2018-07-02] MEDS: Aspirin 81 MG TAB.CHEW PO SCH (08:41)
[2018-07-02] MEDS: Folic Acid 1 MG TABLET PO SCH (08:41)
[2018-07-02] MEDS: Gabapentin 400 MG CAPSULE PO SCH ×4 (08:41→21:07)
[2018-07-02] MEDS: Insulin DETEMIR 100 UNIT/ML X5UNITS SQ SCH ×2 (08:42→21:07)
--- NOTE | 2018-07-02 10:58 | Internal Med Progress Note ---
<Kathy Huffman - Last Filed: 07/02/18 13:22> Hospitalist Progress Note - Encounter Date of Encounter: 07/02/18 - Exam Vitals: Temp Pulse Resp BP Pulse Ox 98.4 F 76 18 126/70 94 07/02/18 10:33 07/02/18 13:12 07/02/18 10:33 07/02/18 13:12 07/02/18 10:33 - Assessment and Plan (1) CAD (coronary artery disease) Current Visit: No Status: Chronic (2) Asthma Current Visit: No Status: Chronic (3) DVT prophylaxis Current Visit: No Status: Acute (4) Leukocytosis Current Visit: No Status: Resolved (5) BROCK (obstructive sleep apnea) Current Visit: No Status: Chronic (6) Type II diabetes mellitus Current Visit: No Status: Chronic (7) Charcot's joint of foot Current Visit: No Status: Chronic (8) Right tibial fracture Current Visit: Yes Status: Acute (9) History of osteomyelitis Current Visit: No Status: Chronic - Time Spent with Patient Total time spent is greater than 50% in coordination of care (as documented) at patient's floor/unit and/or counseling patient: Internal Medicine: Result - Labs CBC & Chem 7: 07/02/18 06:48 07/02/18 03:10 Labs: Short CBC 07/01/18 07/01/18 07/02/18 Range/Units 18:14 23:48 03:10 WBC 12.5 H (4.3-11.1) K/mcL Hgb 8.8 L 8.6 L 8.4 L (12.9-16.9) g/dL Hct 28.2 L 27.2 L 26.3 L (37.5-50.1) % Plt Count 315 (140-400) K/mcL Neutrophils # 9.7 H (1.6-8.9) K/mcL 07/02/18 Range/Units 06:48 WBC (4.3-11.1) K/mcL Hgb 9.1 L (12.9-16.9) g/dL Hct 29.0 L (37.5-50.1) % Plt Count (140-400) K/mcL Neutrophils # (1.6-8.9) K/mcL BMP 07/02/18 03:10 Sodium 129 L Potassium 3.4 L Chloride 96 L Carbon Dioxide 26 BUN 15 Creatinine 0.64 L Glucose 341 H Calcium 7.9 L - ABG Interpretation ABG results: PT/INR, D-dimer PT 13.3 Seconds (9.4-12.1) H 06/30/18 04:49 Consult Discharge Plan - Plan Referrals: Myron Henderson [Primary Care Provider] - - Attending Attestation I examined this patient and my medical decision-making was reviewed with the Resident Physician Dr Cordova. I agree with the documented findings, disposition and treatment plan as described except to the extent set forth below. Mr Newsome has pmhx recent ankle fusions, complicated by a right tibial fracture - external fixation device, charcot foot, right ankle wound with MSSA osteomyelitis around the right ankle followed by ID. Post op anemia awake, comfortable in bed, pain tolerable, denies lightheadedness, dizziness, cp, sob with hgb drop. no palpitations. cont to eat/drink/urinate/move bowels without difficulty gen- alert, awake,appears stated age, obese, very comofrtable appearing cv- reg rate and rhythm, warm extremities, cannot appreciate RLE edema due to post op dressing, no pitting edema of LLE lungs- ctabl, no wheezing, rhonchi or crackles normal resp effort on room air neuro- AAOx3 Right Tibial fracture s/p R tibial IMN, adjustment of ex fix- ortho and podiatry following, prn pain control, NWB RLE, hep sq vte ppx held due to cont drop in hgb, Dr Soriano aware, pt/ot and will dc to ecf when med stable Right ankle wound with MSSA osteomyelitis Leukocytosis down trending, afebrile -his ID team is following, ancef -no signs/symptoms of addl infectious process at this time DM, hyperglcemia-he has no tfilled Regular U 500 insulin per his pharmacy since april, and was not on it last admit here per our pharmacy, -will cont to uptitrate levemir + ssi Acute Blood Loss anemia, post op as above- prbc today, holding home plavix (held since admit),stop hep sq vte ppx, scd to left leg, serial h/hs Low normotensive BPs- cautious use of pain meds as d/w pt, held bp meds this morning and now back to 120s/70s, monitor bp further diagnoses and treatment as documented by resident <Hallie Cordova - Last Filed: 07/02/18 14:39> Hospitalist Progress Note - Encounter Date of Encounter: 07/02/18 Time of Encounter: 10:45 - Subjective Interval History: Patient seen and examined at bedside. He is alert and oriented times 3. He has no complaints today. Denies fever, chills, shortness of breath, chest pain, abdominal pain, nausea. Event no last night sure that the patient was altered and his hemoglobin had decreased. Dr. Soriano was notified by the nurse practitioner and agreed to stop the DVT prophylaxis of heparin. The patient was typed and screened and transfused a unit of packed red blood cells. - Exam Vitals: Temp Pulse Resp BP Pulse Ox 98.4 F 79 18 94/51 94 07/02/18 10:33 07/02/18 10:33 07/02/18 10:33 07/02/18 10:33 07/02/18 10:33 Exam: Gen.: Vitals noted. No acute distress. AAOx3 HEENT: oropharynx clear, Normocephalic, atraumatic Neck: Supple. No adenopathy. Cardiac: RRR, no murmur, +S1/S2, no BLE edema Pulmonary: CTA bilaterally, no wheezes, rales or rhonchi, equal chest expansion Abdomen: soft, nontender, Bowel sounds noted, no guarding Extremities: tenderness to right leg, decreased sensation of right plantar surface. Right lower extremity is a charcot foot. He has a halo and pins is right foot and ankle. Neuro: A&Ox3, moves all extremities, no focal deficits Psych: Appropriate mood and behavior - Assessment and Plan (1) History of osteomyelitis Current Visit: No Status: Chronic Assessment and Plan: Patient had osteomyelitis w/ (+) blood culture for MSSA at last admission on 05/05/18. Was placed on IV ancef by ID and was supposed to continue for at least 6weeks. He was supposed to have an appt w/ ID on 06/28/18 that he did not go to the appointment due to new fracture. Afebrile, WBC 12.5, yesterday 14.8 Plan: -Continue ancef 2g q8h per ID -We consulted ID for further management of osteomyelitis and abx regimen since they were following the patient outpatient (2) Anemia Current Visit: No Status: Acute Assessment and Plan: Anemia in setting of recent orthopedic surgery. Hemoglobin 9.7, yesterday 11.2 no obvious active bleeding normocytic MCV, RDW elevated -s/p transfusion one unit packed red blood cell. Last night hemoglobin decreased to 8.4. -will continue to monitor hemoglobin and for bleeding -holding heparin for DVT prophylaxis and home Plavix due to decrease and hemoglobin (3) CAD (coronary artery disease) Current Visit: No Status: Chronic Assessment and Plan: He has a history of CAD, but denies chest pain today. Plan: -Hold Plavix -Continue other home medications such as amlodipine, ASA, metoprolol, lasix, imdur, and atorvastatin (4) Asthma Current Visit: No Status: Chronic Assessment and Plan: History of chronic asthma, controlled, not an exacerbation today. Plan: -Continue home inhalers -Duonebs PRN (5) Leukocytosis Current Visit: No Status: Resolved Assessment and Plan: Leukocytosis 14.3 at admission afebrile WBC 12.5, yesterday 14.8 improved Etiology is likely d/t the osteomyelitis he is currently being treated for of his R ankle. Pt denies any respiratory or urinary complaints. This could potentially also be secondary to the new acute fracture. Plan: -Continue to monitor WBC count, slightly increased today -Will continue ancef per ID day 4 in the hospital -blood cultures not taken as the patient has been on IV antibiotics outpatient (6) Type II diabetes mellitus Current Visit: No Status: Chronic Assessment and Plan: This is a chronic T2DM patient on insulin. Glucose elevated today Plan: -increased Levemir 20 units bid -Patient will be on sliding scale insulin (medium dose) -Continue checking acu-cheks -Diabetic diet (7) BROCK (obstructive sleep apnea) Current Visit: No Status: Chronic Assessment and Plan: Plan: -Order CPAP for bedtime (8) Hyponatremia Current Visit: No Status: Acute Assessment and Plan: Hyponatremia in setting of elevated glucose at 341. Sodium has been 131-133 during admission. This is chronic for the patient. The decrease in sodium is likely secondary to hyponatremia in setting of hyperglycemia. sodium 129 serum osmolality 282 Plan: -continue to monitor sodium and improve glycemic control -order urinalysis, urine sodium, urine osmolality (9) Charcot's joint of foot Current Visit: No Status: Chronic Assessment and Plan: This is a chronic issue. (10) Right tibial fracture Current Visit: Yes Status: Acute Assessment and Plan: Patient has both a proximal and mid shaft fracture of the R tibia. Pt. states this is his 2nd fracture of the R tibia, and that his first occurred on when he was trying to get into bed. He swung his R leg into bed and it "popped and cracked" causing him extreme pain. he had surgery for it that Tuesday, was in the hospital at [facility] for a few days, then was discharged./ Patient states he was at senior care on Tuesday (06/27/18) and needed to get an updated body weight, and during this his R leg popped/cracked again and he had extreme pain similar to his first fracture. He says he came to see Dr. Harrington today at the wound clinic b/c of a wound on his R ankle. Dr. Harrington had a Xray don e today and states a new fracture is present, which is when he came to the ED. Xrays of the ankle showed a mid-shaft tibial fracture, and Xrays of the tibia/fibula showed a proximal tibial fracture. Patient had external fixation completed by his clerical secretary in May. Plan: 06/30/2018 s/p Left tibia open reduction intramedullary nail fixation -continue strict nonweightbearing to the right lower extremity -Currently takes oxycodone for pain. (11) DVT prophylaxis Current Visit: No Status: Acute Assessment and Plan: Holding SQ heparin q8hrs due to anemia with decrease in hemoglobin today - Time Spent with Patient Total time spent is greater than 50% in coordination of care (as documented) at patient's floor/unit and/or counseling patient: Internal Medicine: Result - Labs CBC & Chem 7: 07/02/18 13:00 07/02/18 03:10 Labs: Short CBC 07/01/18 07/01/18 07/02/18 Range/Units 18:14 23:48 03:10 WBC 12.5 H (4.3-11.1) K/mcL Hgb 8.8 L 8.6 L 8.4 L (12.9-16.9) g/dL Hct 28.2 L 27.2 L 26.3 L (37.5-50.1) % Plt Count 315 (140-400) K/mcL Neutrophils # 9.7 H (1.6-8.9) K/mcL 07/02/18 Range/Units 06:48 WBC (4.3-11.1) K/mcL Hgb 9.1 L (12.9-16.9) g/dL Hct 29.0 L (37.5-50.1) % Plt Count (140-400) K/mcL Neutrophils # (1.6-8.9) K/mcL BMP 07/02/18 03:10 Sodium 129 L Potassium 3.4 L Chloride 96 L Carbon Dioxide 26 BUN 15 Creatinine 0.64 L Glucose 341 H Calcium 7.9 L - ABG Interpretation ABG results: PT/INR, D-dimer PT 13.3 Seconds (9.4-12.1) H 06/30/18 04:49 __ <Kathy Huffman - Last Filed: 07/02/18 13:22> (1) CAD (coronary artery disease) Qualifiers: Coronary Disease-Associated Artery/Lesion type: [place] artery [place] vs. transplanted heart: [place] heart Associated angina: without angina Qualified Code(s): I25.10 - Atherosclerotic heart disease of [place] coronary artery without angina pectoris (2) Asthma Qualifiers: Asthma severity: unspecified severity Asthma persistence: unspecified Asthma complication type: uncomplicated Qualified Code(s): J45.909 - Unspecified asthma, uncomplicated (4) Leukocytosis Qualifiers: Leukocytosis type: bandemia Qualified Code(s): D72.825 - Bandemia (6) Type II diabetes mellitus Qualifiers: Diabetes mellitus chcf insulin use: with chcf use Diabetes mellitus complication status: with diabetic arthropathy Qualified Code(s): E11.610 - Type 2 diabetes mellitus with diabetic neuropathic arthropathy; Z79.4 - snf (current) use of insulin (7) Charcot's joint of foot Qualifiers: Laterality: right Qualified Code(s): M14.671 - Charcot's joint, right ankle and foot (8) Right tibial fracture Qualifiers: Encounter type: initial encounter Tibia location: shaft Fracture type: closed Fracture morphology: transverse Fracture alignment: displaced Qualified Code(s): S82.221A - Displaced transverse fracture of shaft of right tibia, initial encounter for closed fracture <Hallie Cordova - Last Filed: 07/02/18 14:39> (2) Anemia Qualifiers: Anemia type: unspecified type Qualified Code(s): D64.9 - Anemia, unspecified (3) CAD (coronary artery disease) Qualifiers: Coronary Disease-Associated Artery/Lesion type: [place] artery [place] vs. transplanted heart: [place] heart Associated angina: without angina Qualified Code(s): I25.10 - Atherosclerotic heart disease of [place] coronary artery without angina pectoris (4) Asthma Qualifiers: Asthma severity: unspecified severity Asthma persistence: unspecified Asthma complication type: uncomplicated Qualified Code(s): J45.909 - Unspecified asthma, uncomplicated (5) Leukocytosis Qualifiers: Leukocytosis type: bandemia Qualified Code(s): D72.825 - Bandemia (6) Type II diabetes mellitus Qualifiers: Diabetes mellitus [employer] insulin use: with chcf use Diabetes mellitus complication status: with diabetic arthropathy Qualified Code(s): E11.610 - T ype 2 diabetes mellitus with diabetic neuropathic arthropathy; Z79.4 - [employer] (current) use of insulin (9) Charcot's joint of foot Qualifiers: Laterality: right Qualified Code(s): M14.671 - Charcot's joint, right ankle and foot (10) Right tibial fracture Qualifiers: Encounter type: initial encounter Tibia location: shaft Fracture type: closed Fracture morphology: transverse Fracture alignment: displaced Qualified Code(s): S82.221A - Displaced transverse fracture of shaft of right tibia, initial encounter for closed fracture
[2018-07-02 13:26] LABS: Hematocrit 30.6 % (37.5-50.1); Hemoglobin 9.7 g/dL (12.9-16.9)
[2018-07-02] MEDS ORDERED: Ondansetron 4 MG/2 ML VIAL IVP ONE (14:58)
[2018-07-03 00:08] LABS: Hematocrit 32.3 % (37.5-50.1); Hemoglobin 10.5 g/dL (12.9-16.9)
[2018-07-03] MEDS: *HR* OxyCODONE/APAP 10/325 TABLET PO PRN ×4 (01:56→19:17)
[2018-07-03] MEDS: Ondansetron 4 MG/2 ML VIAL IVP PRN (02:45)
[2018-07-03 03:09] LABS: Basophils # 0.1 K/mcL (0.0-0.2); Basophils % 0.8 %; Eosinophils # 0.5 K/mcL (0.0-0.6); Eosinophils % 4.1 %; Hematocrit 32.5 % (37.5-50.1); Hemoglobin 10.3 g/dL (12.9-16.9); Immature Granulocytes % 0.6 % (0-4); Lymphocytes # 2.3 K/mcL (0.6-4.6); Lymphocytes % 19.9 %; Mean Corpuscular HGB Conc 31.7 g/dL (31.6-35.5); Mean Corpuscular Volume 85.1 fL (83.0-100.0); Mean Platelet Volume 11.4 fL (9.4-12.4); Monocytes # 1.2 K/mcL (0.0-1.3); Monocytes % 10.2 %; Neutrophils # 7.6 K/mcL (1.6-8.9); Platelet Count 319 K/mcL (140-400); Red Blood Count 3.82 M/mcL (4.19-5.50); Red Cell Distribution Width 15.4 % (11.5-14.5); Segmented Neutrophils % 64.4 %
[2018-07-03 03:30] LABS: BUN/Creatinine Ratio 18 (6-26); Blood Urea Nitrogen 12 mg/dL (8-23); Calcium 8.4 mg/dL (8.6-10.3); Carbon Dioxide 28 mEq/L (23-29); Chloride 96 mEq/L (98-107); Glucose 170 mg/dL (70-105); Magnesium 1.7 mg/dL (1.6-2.6); Osmolality,Calculated 276 (280-300); Potassium 3.9 mEq/L (3.5-5.1); Sodium 131 mEq/L (136-145); eGFR For Non-African Americans > 60 (> 60)
--- NOTE | 2018-07-03 06:48 | Orthopedics Progress Note ---
Date of Encounter: 07/03/18 Time of Encounter: 06:47 Subjective Interval history: Patient was seen this morning doing well without complaints. Afebrile vital signs stable. Operative extremity: Exfix intact Dressing clean dry and intact [place] nontender Assessment and plan: Continue with postoperative care Objective Vital signs: Vital Signs Temp Pulse Resp BP Pulse Ox 07/03/18 03:14 98.7 F 79 18 120/71 98 07/03/18 00:10 13 100 07/02/18 23:37 98.7 F 75 16 126/73 97 07/02/18 21:24 122/61 07/02/18 19:26 98.0 F 75 20 103/65 97 07/02/18 19:15 16 98 07/02/18 18:37 71 113/63 07/02/18 16:44 71 123/74 07/02/18 14:47 71 117/61 07/02/18 14:42 98.2 F 71 18 113/64 97 07/02/18 13:12 76 126/70 07/02/18 10:33 98.4 F 79 18 94/51 94 07/02/18 09:23 78 110/61 07/02/18 08:05 18 96 Intake and Output 07/02/18 07/02/18 07/03/18 15:59 23:59 07:59 Intake Total 3160 / 3160 1470 / 1470 1200 / 1200 Output Total 4125 / 4125 6125 / 6125 1675 / 1675 Balance -965 / -965 -4655 / -4655 -475 / -475 Intake: IV Fluids 100 / 100 Ancef 2,000 MG In 0.9 % Sodium 100 / 100 Chloride 100 ML @ 200 mls/hr IVPB Q8HR [facility] Rx#:[id number] Oral 3160 / 3160 1370 / 1370 1200 / 1200 Output: Catheter 4125 / 4125 6125 / 6125 1675 / 1675 Other: Meal Lunch Dinner Percent of Meal Consumed 95% 100% Weight 136.5 kg Blood Glucose* 276 236 Patient Weight 07/03/18 23:59 Weight 136.5 kg - Labs CBC & BMP: 07/03/18 02:50 07/03/18 02:50 Labs: Abnormal lab results WBC 11.8 K/mcL (4.3-11.1) H 07/03/18 02:50 RBC 3.82 M/mcL (4.19-5.50) L 07/03/18 02:50 Hgb 10.3 g/dL (12.9-16.9) L 07/03/18 02:50 Hct 32.5 % (37.5-50.1) L 07/03/18 02:50 MCH 27.0 pg (28.0-33.3) L 07/03/18 02:50 RDW 15.4 % (11.5-14.5) H 07/03/18 02:50 PT 13.3 Seconds (9.4-12.1) H 06/30/18 04:49 Sodium 131 mEq/L (136-145) L 07/03/18 02:50 Chloride 96 mEq/L (98-107) L 07/03/18 02:50 Creatinine 0.68 mg/dL (0.70-1.30) L 07/03/18 02:50 Glucose 170 mg/dL (70-105) H 07/03/18 02:50 POC Glucose 236 mg/dL (70-99) H 07/02/18 20:58 Calculated Osmolality 276 (280-300) L 07/03/18 02:50 Calcium 8.4 mg/dL (8.6-10.3) L 07/03/18 02:50 Consult Discharge Plan - Plan Referrals: Myron Hnederson [Primary Care Provider] -
[2018-07-03] MEDS: Furosemide 40 MG TABLET PO SCH ×2 (07:30→16:37)
[2018-07-03] MEDS: FLUoxetine 20 MG CAPSULE PO SCH (07:30)
[2018-07-03] MEDS: Gabapentin 400 MG CAPSULE PO SCH ×4 (07:30→21:03)
[2018-07-03] MEDS: amLODIPine 5 MG TABLET PO SCH (07:31)
[2018-07-03] MEDS: Isosorbide MONOnitrate (24 HR) 30 MG TAB.ER.24H PO SCH (07:31)
[2018-07-03] MEDS: Metoprolol XL (24 HR) Succ 50 MG TAB.ER.24H PO SCH (07:31)
[2018-07-03] MEDS: Aspirin 81 MG TAB.CHEW PO SCH (07:31)
[2018-07-03] MEDS: Folic Acid 1 MG TABLET PO SCH (07:32)
[2018-07-03] MEDS: Magnesium Oxide 400 MG TABLET PO SCH (07:32)
[2018-07-03] MEDS: Insulin LISPRO 300 UNITS/3 ML VIAL SQ SCH ×4 (07:33→21:06)
[2018-07-03] MEDS: Insulin DETEMIR 100 UNIT/ML X5UNITS SQ SCH ×2 (07:34→21:05)
[2018-07-03] MEDS: Budesonide/Formoterol 160/4.5 1 PUFF INH IH SCH ×2 (07:59→22:13)
[2018-07-03] MEDS: Tiotropium 18 MCG inhalation IH SCH (08:00)
--- NOTE | 2018-07-03 08:59 | Internal Med Progress Note ---
<Kathy Huffman - Last Filed: 07/03/18 13:49> Hospitalist Progress Note - Encounter Date of Encounter: 07/03/18 - Exam Vitals: Temp Pulse Resp BP Pulse Ox 99.1 F 79 14 108/61 95 07/03/18 11:01 07/03/18 11:01 07/03/18 11:01 07/03/18 12:24 07/03/18 11:01 - Assessment and Plan (1) CAD (coronary artery disease) Current Visit: No Status: Chronic (2) Asthma Current Visit: No Status: Chronic (3) DVT prophylaxis Current Visit: No Status: Acute (4) Leukocytosis Current Visit: No Status: Resolved (5) BROCK (obstructive sleep apnea) Current Visit: No Status: Chronic (6) Type II diabetes mellitus Current Visit: No Status: Chronic (7) Charcot's joint of foot Current Visit: No Status: Chronic (8) Right tibial fracture Current Visit: Yes Status: Acute (9) History of osteomyelitis Current Visit: No Status: Chronic - Time Spent with Patient Total time spent is greater than 50% in coordination of care (as documented) at patient's floor/unit and/or counseling patient: Internal Medicine: Result - Labs CBC & Chem 7: 07/03/18 02:50 07/03/18 02:50 Labs: Short CBC 07/02/18 07/03/18 Range/Units 23:45 02:50 WBC 11.8 H (4.3-11.1) K/mcL Hgb 10.5 L 10.3 L (12.9-16.9) g/dL Hct 32.3 L 32.5 L (37.5-50.1) % Plt Count 319 (140-400) K/mcL Neutrophils # 7.6 (1.6-8.9) K/mcL BMP 07/03/18 02:50 Sodium 131 L Potassium 3.9 Chloride 96 L Carbon Dioxide 28 BUN 12 Creatinine 0.68 L Glucose 170 H Calcium 8.4 L - ABG Interpretation ABG results: PT/INR, D-dimer PT 13.3 Seconds (9.4-12.1) H 06/30/18 04:49 Consult Discharge Plan - Plan Referrals: Myron Henderson [Primary Care Provider] - - Attending Attestation I examined this patient and my medical decision-making was reviewed with the Resident Physician Dr Michael. I agree with the documented findings, disposition and treatment plan as described except to the extent set forth below. Mr Newsome has pmhx recent ankle fusions, complicated by a right tibial fracture - external fixation device, charcot foot, right ankle wound with MSSA osteomyelitis around the right ankle followed by ID. Post op anemia awake, comfortable in bed, pain currently tolerable, no fevers. chills, presyncope. eating and drinking and moving bowels without difficulty gen- alert, awake,appears stated age, obese cv- reg rate and rhythm, warm extremities, cannot appreciate RLE edema due to post op dressing, no pitting edema of LLE lungs- ctabl, no wheezing, rhonchi or crackles normal resp effort on room air neuro- AAOx3 Right Tibial fracture s/p R tibial IMN, adjustment of ex fix- ortho and podiatry following, prn pain control, NWB RLE, hep sq vte ppx held due to cont drop in hgb, Dr Soriano aware, pt/ot and will dc to ecf when med stable/cleared by ortho, cont to hold pharm vte ppx as d/w ortho team today Right ankle wound with MSSA osteomyelitis Leukocytosis down trending, afebrile -his ID team is following, ancef -no signs/symptoms of addl infectious process at this time DM, hyperglcemia-will cont to uptitrate levemir + ssi Acute Blood Loss anemia, post op as above- s/p prbc, stable in 10s, holding home plavix (held since admit),stopped hep sq vte ppx, scd to left leg Low normotensive BPs appear to be related to him taking pain meds-bp meds as bp permits , pt education, stating he runs low normal at baseline further diagnoses and treatment as documented by resident dispo- as d/w sw barrier to discharge will likley be him being out of ecf days and no insurance to cover ecf until 08/01/18 <Owen Michael - Last Filed: 07/03/18 16:12> Hospitalist Progress Note - Encounter Date of Encounter: 07/03/18 Time of Encounter: 10:00 - Subjective Interval History: Patient overall comfortable, in no distress, pain management has been extended to q6 in setting of 100s systolic. Issues of placement given his insurance coverage for SNF has nearly run out (2d) for this year. Interval history: Past medical history of ankle fusions complicated by a right tibial fracture status post ORIF this admission history of charcot foot, ID following currently on Ancef 2 grams every 8 hours. - Exam Vitals: Temp Pulse Resp BP Pulse Ox 98.0 F 78 18 121/65 93 07/03/18 07:13 07/03/18 07:13 07/03/18 07:13 07/03/18 07:13 07/03/18 07:13 Exam: Gen.: Comfortable. No acute distress. AAOx3 HEENT: oropharynx clear, Normocephalic, atraumatic Neck: Supple. No adenopathy. Cardiac: RRR, no murmur, +S1/S2, no BLE edema Pulmonary: CTA bilaterally, no wheezes, rales or rhonchi, equal chest expansion Abdomen: soft, nontender, Bowel sounds noted, no guarding Extremities: tenderness to right leg, decreased sensation of right plantar surface. Right lower extremity is a charcot foot. He has a halo and pins is right foot and ankle. Neuro: A&Ox3, moves all extremities, no focal deficits Psych: Appropriate mood and behavior - Assessment and Plan (1) Right tibial fracture Current Visit: Yes Status: Acute Assessment and Plan: Patient has both a proximal and mid shaft fracture of the R tibia. Pt. states this is his 2nd fracture of the R tibia, and that his first occurred on when he was trying to get into bed. He swung his R leg into bed and it "popped and cracked" causing him extreme pain. he had surgery for it that Tuesday, was in the hospital at [place] for a few days, then was discharged./ Patient states he was at group home on Tuesday (06/27/18) and needed to get an updated body weight, and during this his R leg popped/cracked again and he had extreme pain similar to his first fracture. He says he came to see Dr. Harrington today at the wound clinic b/c of a wound on his R ankle. Dr. Harrington had a Xray don e today and states a new fracture is present, which is when he came to the ED. Xrays of the ankle showed a mid-shaft tibial fracture, and Xrays of the tibia/fi bula showed a proximal tibial fracture. Patient had external fixation completed by his supervisor irrigation in May. Plan: s/p Left tibia open reduction intramedullary nail fixation -continue strict nonweightbearing to the right lower extremity -Currently takes oxycodone for pain -Pain management has been extended to C6 [place] every 4 in setting of low blood pressures with systolic in the 100s; patient currently tolerating this transition (2) CAD (coronary artery disease) Current Visit: No Status: Chronic Assessment and Plan: Patient's Plavix still on hold, in setting of recent surgery and anemia Today's hemoglobin 10.3 Continuing rest of home CAD medications (3) Charcot's joint of foot Current Visit: No Status: Chronic Assessment and Plan: Chronic complication of type 2 diabetes (4) History of osteomyelitis Current Visit: No Status: Chronic Assessment and Plan: Patient had osteomyelitis w/ (+) blood culture for MSSA at last admission on 05/05/18. Was placed on IV ancef by ID and was supposed to continue for at least 6weeks. He was supposed to have an appt w/ ID on 06/28/18 that he did not go to the appointment due to new fracture. Afebrile, WBC continuing to downtrend now 11.8 Plan: -Continue ancef 2g q8h per ID -ID following, appreciate recommendations (5) BROCK (obstructive sleep apnea) Current Visit: No Status: Chronic Assessment and Plan: CPAP for bedtime (6) Type II diabetes mellitus Current Visit: No Status: Chronic Assessment and Plan: Levemir 25 units bid -Patient will be on sliding scale insulin (medium dose) -Continue checking accu-cheks -Diabetic diet (7) Asthma Current Visit: No Status: Chronic Assessment and Plan: Chronic asthma controlled not in acute exacerbation continuing home inhalers and DuoNeb's PRN (8) DVT prophylaxis Current Visit: No Status: Acute Assessment and Plan: Intermittent pneumatic compression of left calf - Time Spent with Patient Total time spent is greater than 50% in coordination of care (as documented) at patient's floor/unit and/or counseling patient: Internal Medicine: Result - Labs CBC & Chem 7: 07/03/18 02:50 07/03/18 02:50 Labs: Short CBC 07/02/18 07/02/18 07/03/18 Range/Units 13:00 23:45 02:50 WBC 11.8 H (4.3-11.1) K/mcL Hgb 9.7 L 10.5 L 10.3 L (12.9-16.9) g/dL Hct 30.6 L 32.3 L 32.5 L (37.5-50.1) % Plt Count 319 (140-400) K/mcL Neutrophils # 7.6 (1.6-8.9) K/mcL BMP 07/03/18 02:50 Sodium 131 L Potassium 3.9 Chloride 96 L Carbon Dioxide 28 BUN 12 Creatinine 0.68 L Glucose 170 H Calcium 8.4 L - ABG Interpretation ABG results: PT/INR, D-dimer PT 13.3 Seconds (9.4-12.1) H 06/30/18 04:49 <Kathy Huffman M - Last Filed: 07/03/18 13:49> (1) CAD (coronary artery disease) Qualifiers: Coronary Disease-Associated Artery/Lesion type: [place] artery [place] vs. transplanted heart: [place] heart Associated angina: without angina Qualified Code(s): I25.10 - Atherosclerotic heart disease of [place] coronary artery without angina pectoris (2) Asthma Qualifiers: Asthma severity: unspecified severity Asthma persistence: unspecified Asthma complication type: uncomplicated Qualified Code(s): J45.909 - Unspecified asthma, uncomplicated (4) Leukocytosis Qualifiers: Leukocytosis type: bandemia Qualified Code(s): D72.825 - Bandemia (6) Type II diabetes mellitus Qualifiers: Diabetes mellitus vermin exterminator insulin use: with vermin exterminator use Diabetes mellitus complication status: with diabetic arthropathy Qualified Code(s): E11.610 - Type 2 diabetes mellitus with diabetic neuropathic arthropathy; Z79.4 - emt intermediate (current) use of insulin (7) Charcot's joint of foot Qualifiers: Laterality: right Qualified Code(s): M14.671 - Charcot's joint, right ankle and foot (8) Right tibial fracture Qualifiers: Encounter type: initial encounter Tibia location: shaft Fracture type: closed Fracture morphology: transverse Fracture alignment: displaced Qualifie d Code(s): S82.221A - Displaced transverse fracture of shaft of right tibia, initial encounter for closed fracture <Houl[place]Owen - Last Filed: 07/03/18 16:12> (1) Right tibial fracture Qualifiers: Encounter type: initial encounter Tibia location: shaft Fracture type: closed Fracture morphology: transverse Fracture alignment: displaced Qualified Code(s): S82.221A - Displaced transverse fracture of shaft of right tibia, initial encounter for closed fracture (2) CAD (coronary artery disease) Qualifiers: Coronary Disease-Associated Artery/Lesion type: [place] artery [place] vs. transplanted heart: [place] heart Associated angina: without angina Qualified Code(s): I25.10 - Atherosclerotic heart disease of [place] coronary artery without angina pectoris (3) Charcot's joint of foot Qualifiers: Laterality: right Qualified Code(s): M14.671 - Charcot's joint, right ankle and foot (6) Type II diabetes mellitus Qualifiers: Diabetes mellitus longterm insulin use: with vermin exterminator use Diabetes mellitus complication status: with diabetic arthropathy Qualified Code(s): E11.610 - Type 2 diabetes mellitus with diabetic neuropathic arthropathy; Z79.4 - FDC (current) use of insulin (7) Asthma Qualifiers: Asthma severity: unspecified severity Asthma persistence: unspecified Asthma complication type: uncomplicated Qualified Code(s): J45.909 - Unspecified asthma, uncomplicated
[2018-07-03] MEDS ORDERED: Insulin DETEMIR 100 UNIT/ML X5UNITS SQ ONE (11:48)
--- NOTE | 2018-07-03 13:06 | Infectious Disease Progress No ---
Date of Encounter: 07/03/18 Time of Encounter: 09:15 - Assessment and Plan (1) History of osteomyelitis Current Visit: No Status: Chronic Patient has had multiple episodes of osteomyelitis of R ankle: in late December, then in mid Apr. First case treated with 6 weeks IV nafcillin + 2 weeks oral Keflex Second case treated with IV Ancef, still continuing. 04/26 - R talectomy, R ankle foot I&D Was supposed to follow up with infectious disease at outpatient clinic on 06/28 for osteomyelitis management but patient cancelled appointment. Today, hemodynamically neema and afebrile. WBCs 11.8 (trending down) Recommendations: Continue IV Ancef 2g Q8Hr (2) Right tibial fracture Current Visit: Yes Status: Acute 06/22 - midshaft fracture of R tibia 06/24 - external fixation of R tibia 06/27 - fracture of proximal shaft of R tibia 06/30 - ortho surgically repaired the tibia fracture and podiatry adjusted the external fixation of RLE Qualifiers: Encounter type: initial encounter Tibia location: shaft Fracture type: closed Fracture morphology: transverse Fracture alignment: displaced Qualified Code(s): S82.221A - Displaced transverse fracture of shaft of right tibia, initial encounter for closed fracture (3) Wound of right ankle Current Visit: No Status: Chronic Patient has been hospitalized multiple times since December for a wound on R lateral ankle. Patient reports wound being present for [address] Harrington (vice admiral) in wound center for management. I was unable to examine wound today due to dressing and fixation being present. Podiatry noted in their progress note before surgery on 06/30 that the wound had no erythema. Qualifiers: Encounter type: subsequent encounter Qualified Code(s): S91.001D - Unspecified open wound, right ankle, subsequent encounter (4) Charcot's joint of foot Current Visit: No Status: Chronic chronic issue, being managed by podiatry 05/04 - R tibiocalcaneal arthrodesis, performed by Dr. Harrington Qualifiers: Laterality: right Qualified Code(s): M14.671 - Charcot's joint, right ankle and foot (5) Asthma Current Visit: No Status: Chronic Qualifiers: Asthma severity: severe Asthma persistence: unspecified Asthma complication type: uncomplicated Qualified Code(s): J45.909 - Unspecified asthma, uncomplicated (6) CAD (coronary artery disease) Current Visit: No Status: Chronic Qualifiers: Coronary Disease-Associated Artery/Lesion type: [place] artery [place] vs. transplanted heart: [place] heart Associated angina: without angina Qualified Code(s): I25.10 - Atherosclerotic heart disease of [place] coronary artery without angina pectoris (7) BROCK (obstructive sleep apnea) Current Visit: No Status: Chronic (8) Type II diabetes mellitus Current Visit: No Status: Chronic Qualifiers: Diabetes mellitus emt intermediate insulin use: with usp use Diabetes me llitus complication status: with diabetic arthropathy Qualified Code(s): E11.610 - Type 2 diabetes mellitus with diabetic neuropathic arthropathy; Z79.4 - [facility] (current) use of insulin - Subjective Interval history: Patient seen and examined. He was pleasant and alert. He stated that he is still experiencing 10/10 pain in his ankle, especially concentrated at the location of a specific pin (medial side). He denied chills, headache, nasal congestion, sore throat, SOB, cough, chest pain, edema, abd pain. I was unable to examine his lateral ankle wound due to the wrap and external fixation device. Podiatry noted in their progress note before surgery on 06/30 that the wound had no erythema. Per ortho and podiatry progress notes, the tibial intramedullary nailing and external fixation operation on 06/30 went well. Patient did receive 1 unit of blood on 07/02 for acute blood loss anemia. Infect Dis PN-Objective Data - Labs CBC & Chem 7: 07/04/18 05:00 07/04/18 05:00 Labs: Laboratory Results - last 24 hr 07/01/18 07/01/18 07/02/18 07:19 11:38 13:00 WBC RBC Hgb 9.7 L Hct 30.6 L MCV MCH MCHC RDW Plt Count MPV Immature Gran % Seg Neutrophils % Lymphocytes % Monocytes % Eosinophils % Basophils % Neutrophils # Lymphocytes # Monocytes # Eosinophils # Basophils # Sodium Potassium Chloride Carbon Dioxide BUN Creatinine Est GFR ( Amer) Est GFR (Non-Af Amer) BUN/Creatinine Ratio Glucose POC Glucose 280 H 252 H Calculated Osmolality Calcium Magnesium 07/02/18 07/02/18 07/02/18 16:37 20:58 23:45 WBC RBC Hgb 10.5 L Hct 32.3 L MCV MCH MCHC RDW Plt Count MPV Immature Gran % Seg Neutrophils % Lymphocytes % Monocytes % Eosinophils % Basophils % Neutrophils # Lymphocytes # Monocytes # Eosinophils # Basophils # Sodium Potassium Chloride Carbon Dioxide BUN Creatinine Est GFR ( Amer) Est GFR (Non-Af Amer) BUN/Creatinine Ratio Glucose POC Glucose 247 H 236 H Calculated Osmolality Calcium Magnesium 07/03/18 07/03/18 02:50 02:50 WBC 11.8 H RBC 3.82 L Hgb 10.3 L Hct 32.5 L MCV 85.1 MCH 27.0 L MCHC 31.7 RDW 15.4 H Plt Count 319 MPV 11.4 Immature Gran % 0.6 Seg Neutrophils % 64.4 Lymphocytes % 19.9 Monocytes % 10.2 Eosinophils % 4.1 Basophils % 0.8 Neutrophils # 7.6 Lymphocytes # 2.3 Monocytes # 1.2 Eosinophils # 0.5 Basophils # 0.1 Sodium 131 L Potassium 3.9 Chloride 96 L Carbon Dioxide 28 BUN 12 Creatinine 0.68 L Est GFR ( Amer) > 60 Est GFR (Non-Af Amer) > 60 BUN/Creatinine Ratio 18 Glucose 170 H POC Glucose Calculated Osmolality 276 L Calcium 8.4 L Magnesium 1.7 Exam - Constitutional Vitals: Temp Pulse Resp BP Pulse Ox 99.1 F 79 14 108/61 95 07/03/18 11:01 07/03/18 11:01 07/03/18 11:01 07/03/18 12:24 07/03/18 11:01 General appearance: cooperative, morbidly obese, no febrile - Head Head exam: Present: atraumatic, normocephalic - Eye Eye exam: Present: normal appearance, sclera anicteric. Absent: conjunctival injection, periorbital swelling - Respiratory Respiratory exam: Present: CTAB. Absent: rales, respiratory distress, rhonchi, wheezes - Cardiovascular Cardiovascular exam: Present: RRR, +S1, +S2. Absent: gallop, rubs Additional comments: Heart sounds distant - GI/Abdominal GI/Abdominal exam: Present: normal bowel sounds, soft. Absent: guarding, tenderness - Extremities Exam Extremities exam: Absent: pedal edema Additional comments: Incision present over proximal tibia - no erythema, minimal non-purulent discharge. R ankle in external fixation device and wrapped. Some serosanguinous appearing seepage was noted through the wrap on medial and posterior side of R ankle. No edema of L ankle. - Skin Skin exam: Present: dry, intact, normal color Additional comments: Intact other than sites noted on RLE Consult Discharge Plan - Plan Referrals: Myron Henderson [Primary Care Provider] - - Attending Attestation I examined this patient and my medical decision-making was reviewed with the Resident Physician. I agree with the documented findings, disposition and treatment plan as described except to the extent set forth below.
--- NOTE | 2018-07-03 14:26 | Electrocardiograph Report ---
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
[2018-07-03] MEDS: Ringers Solution, Lactated 1,000 ML IVC SCH ×2 (22:25→22:26)
[2018-07-04 05:15] LABS: Basophils # 0.1 K/mcL (0.0-0.2); Eosinophils # 0.7 K/mcL (0.0-0.6); Eosinophils % 6.6 %; Hematocrit 31.8 % (37.5-50.1); Hemoglobin 10.1 g/dL (12.9-16.9); Immature Granulocytes % 0.9 % (0-4); Lymphocytes # 2.4 K/mcL (0.6-4.6); Mean Corpuscular HGB Conc 31.8 g/dL (31.6-35.5); Mean Corpuscular Hemoglobin 26.8 pg (28.0-33.3); Mean Corpuscular Volume 84.4 fL (83.0-100.0); Mean Platelet Volume 11.2 fL (9.4-12.4); Monocytes # 1.2 K/mcL (0.0-1.3); Monocytes % 10.7 %; Neutrophils # 6.4 K/mcL (1.6-8.9); Platelet Count 299 K/mcL (140-400); Red Blood Count 3.77 M/mcL (4.19-5.50); Red Cell Distribution Width 15.5 % (11.5-14.5); Segmented Neutrophils % 58.8 %
[2018-07-04 05:35] LABS: BUN/Creatinine Ratio 24 (6-26); Blood Urea Nitrogen 15 mg/dL (8-23); Calcium 8.6 mg/dL (8.6-10.3); Carbon Dioxide 30 mEq/L (23-29); Chloride 94 mEq/L (98-107); Glucose 250 mg/dL (70-105); Osmolality,Calculated 279 (280-300); Potassium 3.9 mEq/L (3.5-5.1); Sodium 130 mEq/L (136-145); eGFR For Non-African Americans > 60 (> 60)
--- NOTE | 2018-07-04 06:35 | Orthopedics Progress Note ---
Date of Encounter: 07/04/18 Time of Encounter: 06:35 Subjective Interval history: Patient was seen this morning doing well without complaints. Afebrile vital signs stable. Operative extremity: Exfix intact Dressing clean dry and intact Calves nontender Assessment and plan: Continue with postoperative care Orthopedically stable for discharge Objective Vital signs: Vital Signs Temp Pulse Resp BP Pulse Ox 07/04/18 04:37 97.9 F 70 18 130/80 96 07/03/18 23:30 97.7 F 73 17 127/72 98 07/03/18 22:13 16 98 07/03/18 18:49 97.6 F 75 18 125/69 97 07/03/18 16:24 99.0 F 77 18 101/59 96 07/03/18 13:55 116/54 07/03/18 12:24 108/61 07/03/18 11:01 99.1 F 79 14 106/64 95 07/03/18 08:00 16 94 07/03/18 07:13 98.0 F 78 18 121/65 93 Intake and Output 07/03/18 07/03/18 07/04/18 15:59 23:59 07:59 Intake Total 940 / 940 2060 / 2060 100 / 100 Output Total 3625 / 3625 3950 / 3950 1900 / 1900 Balance -2685 / -2685 -1890 / -1890 -1800 / -1800 Intake: IV Fluids 100 / 100 300 / 300 100 / 100 Ancef 2,000 MG In 0.9 % Sodium 100 / 100 100 / 100 100 / 100 Chloride 100 ML @ 200 mls/hr IVPB Q8HR [facility] Rx#:[id number] Oral 840 / 840 1760 / 1760 Output: Urine 2300 / 2300 1900 / 1900 Catheter 1325 / 1325 3950 / 3950 Other: Meal Lunch Dinner Percent of Meal Consumed 100% 100% Weight 136.6 kg Blood Glucose* 325 245 Patient Weight 07/04/18 23:59 Weight 136.6 kg - Labs CBC & BMP: 07/04/18 05:00 07/04/18 05:00 Labs: Abnormal lab results RBC 3.77 M/mcL (4.19-5.50) L 07/04/18 05:00 Hgb 10.1 g/dL (12.9-16.9) L 07/04/18 05:00 Hct 31.8 % (37.5-50.1) L 07/04/18 05:00 MCH 26.8 pg (28.0-33.3) L 07/04/18 05:00 RDW 15.5 % (11.5-14.5) H 07/04/18 05:00 Eosinophils # 0.7 K/mcL (0.0-0.6) H 07/04/18 05:00 PT 13.3 Seconds (9.4-12.1) H 06/30/18 04:49 Sodium 130 mEq/L (136-145) L 07/04/18 05:00 Chloride 94 mEq/L (98-107) L 07/04/18 05:00 Carbon Dioxide 30 mEq/L (23-29) H 07/04/18 05:00 Creatinine 0.62 mg/dL (0.70-1.30) L 07/04/18 05:00 Glucose 250 mg/dL (70-105) H 07/04/18 05:00 POC Glucose 236 mg/dL (70-99) H 07/02/18 20:58 Calculated Osmolality 279 (280-300) L 07/04/18 05:00 Consult Discharge Plan - Plan Referrals: Myron Henderson [Primary Care Provider] -
--- NOTE | 2018-07-04 07:32 | Internal Med Progress Note ---
Hospitalist Progress Note - Encounter Date of Encounter: 07/04/18 Time of Encounter: 10:15 - Subjective Interval History: 07/04 Watching blood pressures in setting of q4 opioid medication, patient's systolic has been in the 110s to 120s. He reports mild to moderate pain. 07/03 Patient overall comfortable, in no distress, pain management has been extended to q6 in setting of 100s systolic. Issues of placement given his insurance coverage for SNF has nearly run out (2d) for this year. Interval history: Past medical history of ankle fusions complicated by a right tibial fracture status post ORIF this admission history of charcot foot, ID following currently on Ancef 2 grams every 8 hours. - Exam Vitals: Temp Pulse Resp BP Pulse Ox 97.9 F 70 18 130/80 96 07/04/18 04:37 07/04/18 04:37 07/04/18 04:37 07/04/18 04:37 07/04/18 04:37 - Assessment and Plan (1) Right tibial fracture Current Visit: Yes Status: Acute (2) CAD (coronary artery disease) Current Visit: No Status: Chronic (3) Charcot's joint of foot Current Visit: No Status: Chronic (4) History of osteomyelitis Current Visit: No Status: Chronic (5) BROCK (obstructive sleep apnea) Current Visit: No Status: Chronic (6) Type II diabetes mellitus Current Visit: No Status: Chronic (7) Asthma Current Visit: No Status: Chronic (8) DVT prophylaxis Current Visit: No Status: Acute - Time Spent with Patient Total time spent is greater than 50% in coordination of care (as documented) at patient's floor/unit and/or counseling patient: Internal Medicine: Result - Labs CBC & Chem 7: 07/04/18 05:00 07/04/18 05:00 Labs: Short CBC 07/04/18 Range/Units 05:00 WBC 10.9 (4.3-11.1) K/mcL Hgb 10.1 L (12.9-16.9) g/dL Hct 31.8 L (37.5-50.1) % Plt Count 299 (140-400) K/mcL Neutrophils # 6.4 (1.6-8.9) K/mcL BMP 07/04/18 05:00 Sodium 130 L Potassium 3.9 Chloride 94 L Carbon Dioxide 30 H BUN 15 Creatinine 0.62 L Glucose 250 H Calcium 8.6 - ABG Interpretation ABG results: PT/INR, D-dimer PT 13.3 Seconds (9.4-12.1) H 06/30/18 04:49 Consult Discharge Plan - Plan Referrals: Myron Henderson [Primary Care Provider] - (1) Right tibial fracture Qualifiers: Encounter type: initial encounter Tibia location: shaft Fracture type: closed Fracture morphology: transverse Fracture alignment: displaced Qualified Code(s): S82.221A - Displaced transverse fracture of shaft of right tibia, initial encounter for closed fracture (2) CAD (coronary artery disease) Qualifiers: Coronary Disease-Associated Artery/Lesion type: [place] artery [place] vs. transplanted heart: [place] heart Associated angina: without angina Qualified Code(s): I25.10 - Atherosclerotic heart disease of [place] coronary artery without angina pectoris (3) Charcot's joint of foot Qualifiers: Laterality: right Qualified Code(s): M14.671 - Charcot's joint, right ankle and foot (6) Type II diabetes mellitus Qualifiers: Diabetes mellitus correction insulin use: with correction use Diabetes mellitus complication status: with diabetic arthropathy Qualified Code(s): E11.610 - Type 2 diabetes mellitus with diabetic neuropathic arthropathy; Z79.4 - care home (current) use of insulin (7) Asthma Qualifiers: Asthma severity: severe Asthma persistence: unspecified Asthma complication type: uncomplicated Qualified Code(s): J45.909 - Unspecified asthma, uncomplicated
[2018-07-04] MEDS: Insulin LISPRO 300 UNITS/3 ML VIAL SQ SCH ×3 (08:51→18:04)
[2018-07-04] MEDS: Metoprolol XL (24 HR) Succ 50 MG TAB.ER.24H PO SCH (08:52)
[2018-07-04] MEDS: FLUoxetine 20 MG CAPSULE PO SCH (08:52)
[2018-07-04] MEDS: Folic Acid 1 MG TABLET PO SCH (08:52)
[2018-07-04] MEDS: amLODIPine 5 MG TABLET PO SCH (08:52)
[2018-07-04] MEDS: Aspirin 81 MG TAB.CHEW PO SCH (08:52)
[2018-07-04] MEDS: Furosemide 40 MG TABLET PO SCH ×2 (08:52→18:04)
[2018-07-04] MEDS: Magnesium Oxide 400 MG TABLET PO SCH (08:53)
[2018-07-04] MEDS: Gabapentin 400 MG CAPSULE PO SCH ×3 (08:53→18:03)
[2018-07-04] MEDS: Isosorbide MONOnitrate (24 HR) 30 MG TAB.ER.24H PO SCH (08:53)
[2018-07-04] MEDS: Ondansetron 4 MG/2 ML VIAL IVP PRN (10:05)
[2018-07-04] MEDS: *HR* OxyCODONE/APAP 10/325 TABLET PO PRN ×3 (10:05→18:40)
[2018-07-04] MEDS: Insulin DETEMIR 100 UNIT/ML X5UNITS SQ SCH (10:06)
[2018-07-04] MEDS: Tiotropium 18 MCG inhalation IH SCH (10:52)
[2018-07-04] MEDS: Budesonide/Formoterol 160/4.5 1 PUFF INH IH SCH (10:52)
[2018-07-04] MEDS ORDERED: OMALIZUMAB 150 MG VIAL SQ ONE (11:45)
--- NOTE | 2018-07-04 12:06 | Allergy Progress Note ---
Date of Encounter: 07/04/18 Time of Encounter: 12:00 Subjective Narrative: Patient's asthma has been controlled. He is using his inhalers and denies shortness of breath. He is a week late for his xolair. Objective Vital Signs - Last 8 Hours Temp Pulse Resp BP Pulse Ox 07/04/18 11:20 98.8 F 77 18 117/66 96 07/04/18 08:01 97.7 F 73 17 128/61 97 07/04/18 04:37 97.9 F 70 18 130/80 96 Intake and Output 07/03/18 07/04/18 07/04/18 23:59 07:59 15:59 Intake Total 2060 / 2060 100 / 100 Output Total 3950 / 3950 1900 / 1900 3400 / 3400 Balance -1890 / -1890 -1800 / -1800 -3400 / -3400 Intake: IV Fluids 300 / 300 100 / 100 Ancef 2,000 MG In 0.9 % Sodium 100 / 100 100 / 100 Chloride 100 ML @ 200 mls/hr IVPB Q8HR [facility] Rx#:[id number] Oral 1760 / 1760 Output: Urine 1900 / 1900 Catheter 3950 / 3950 3400 / 3400 Other: Meal Dinner Percent of Meal Consumed 100% Weight 136.6 kg Blood Glucose* 245 234 Patient Weight 07/04/18 23:59 Weight 136.6 kg - General physical appearance no distress - Eyes normal ocular movement - ENT normal nares - Respiratory normal expansion, normal respiratory effort, clear to auscultation - Integumentary other (right leg bandaged in halo.) - Labs 07/04/18 05:00 07/04/18 05:00 Diabetes panel 07/04/18 Range/Units 05:00 Sodium 130 L (136-145) mEq/L Potassium 3.9 (3.5-5.1) mEq/L Chloride 94 L (98-107) mEq/L Carbon Dioxide 30 H (23-29) mEq/L BUN 15 (8-23) mg/dL Creatinine 0.62 L (0.70-1.30) mg/dL Glucose 250 H (70-105) mg/dL Calcium 8.6 (8.6-10.3) mg/dL Calcium panel 07/04/18 Range/Units 05:00 Calcium 8.6 (8.6-10.3) mg/dL Pituitary panel 07/04/18 Range/Units 05:00 Sodium 130 L (136-145) mEq/L Potassium 3.9 (3.5-5.1) mEq/L Chloride 94 L (98-107) mEq/L Carbon Dioxide 30 H (23-29) mEq/L BUN 15 (8-23) mg/dL Creatinine 0.62 L (0.70-1.30) mg/dL Glucose 250 H (70-105) mg/dL Calcium 8.6 (8.6-10.3) mg/dL Adrenal panel 07/04/18 Range/Units 05:00 Sodium 130 L (136-145) mEq/L Potassium 3.9 (3.5-5.1) mEq/L Chloride 94 L (98-107) mEq/L Carbon Dioxide 30 H (23-29) mEq/L BUN 15 (8-23) mg/dL Creatinine 0.62 L (0.70-1.30) mg/dL Glucose 250 H (70-105) mg/dL Calcium 8.6 (8.6-10.3) mg/dL - Assessment and Plan (1) Asthma Current Visit: No Status: Chronic Patient has severe persistent asthma. He is a week late for his xolair. His asthma is stable at this time but I would like him to have his dose today. Xolair 150mg given subq slowly over 10 sec to upper right arm, Xolair 150mg given subq slowly over 10 sec to upper left arm without difficulty for a total of Xolair 300mg subq. Lot # [id number](x2), expir date Sep 2021(x2), [facility]#[id number]. Pt tolerated well, continued to monitor x 30 mins without change. Administered by Latasha Davis RN. He will be due for next injection in 2 weeks. Qualifiers: Asthma severity: severe Asthma persistence: unspecified Asthma complication type: uncomplicated Qualified Code(s): J45.909 - Unspecified asthma, uncomplicated Consult Discharge Plan - Plan Referrals: Myron Henderson [Primary Care Provider] -
[2018-07-04 15:14] VITALS: BP 109/64
--- NOTE | 2018-07-04 16:27 | Discharge Summary ---
<Owen Michael - Last Filed: 07/04/18 16:49> - NOTES TO OUTPATIENT PROVIDER Notes to Outpatient Provider: [facility]. Infectious disease okay'd discontinuation of antibiotics. Dr. Harrington with [facility] to follow-up and schedule outpatient in 1-2 weeks. Pain management rx for 1 week then transition to physician prescriber at ECF Orders not resulted at time of discharge: Pending orders 06/30/18 15:43 US anesthesia pain block [US] Routine 06/30/18 17:05 XR tibia fibula RT [XR] Routine 07/01/18 21:12 Type and Screen [BBK] Routine 07/02/18 00:39 Red Blood Cells [BBK] Stat Date of Encounter: 07/04/18 Time of Encounter: 10:30 - Discharge Diagnosis (1) Right tibial fracture Priority: Primary Status: Acute Qualifiers: Encounter type: initial encounter Tibia location: shaft Fracture type: closed Fracture morphology: transverse Fracture alignment: displaced Qualified Code(s): S82.221A - Displaced transverse fracture of shaft of right tibia, initial encounter for closed fracture (2) CAD (coronary artery disease) Priority: Secondary Status: Chronic Qualifiers: Coronary Disease-Associated Artery/Lesion type: [place] artery [place] vs. transplanted heart: [place] heart Associated angina: without angina Qualified Code(s): I25.10 - Atherosclerotic heart disease of [place] coronary artery without angina pectoris (3) Charcot's joint of foot Priority: Secondary Status: Chronic Qualifiers: Laterality: right Qualified Code(s): M14.671 - Charcot's joint, right ankle and foot (4) History of osteomyelitis Priority: Secondary Status: Chronic (5) BROCK (obstructive sleep apnea) Priority: Secondary Status: Chronic (6) Type II diabetes mellitus Priority: Secondary Status: Chronic Qualifiers: Diabetes mellitus care home insulin use: with care home use Diabetes mellitus complication status: with diabetic arthropathy Qualified Code(s): E11.610 - Type 2 diabetes mellitus with diabetic neuropathic arthropathy; Z79.4 - intermediate designer (current) use of insulin (7) Asthma Priority: Secondary Status: Chronic Qualifiers: Asthma severity: severe Asthma persistence: unspecified Asthma complication type: uncomplicated Qualified Code(s): J45.909 - Unspecified asthma, uncomplicated (8) DVT prophylaxis Priority: Secondary Status: Acute Hospital course: Mr. Newsome is a 63 year old male who presented to the ED with a R tibial fracture. He has a PMHx of arthritis, asthma, Afib, CAD, DVT, DM, charcot foot, GERD, hyperlipidemia, HTN, and ND. Patient states that this was his second fracture of the R tibia, and that his first occurred on when he was trying to get into bed. He swung his R leg into bed and it popped and cracked causing him extreme pain. He had surgery for it that Tuesday, was in the hospital here for a few days, then was discharged. Patient is s/p ORIF of R tibia with external housing. His course of Ancef was completed inpatient this admission with Infectious Disease in consult. He will be discharged to [facility] with 1 week of pain medications with his home medications to be continued as such. He is progressing back to baseline; accepted to [facility] on 07/04/18. - Time Spent with Patient Total time spent providing and/or coordinating discharge services: - Discharge Medications Prescriptions: OxyCODONE/APAP 10/325 [Percocet 10/325 MG] 1 each PO Q4HR PRN 7 Days #28 tablet PRN Reason: Pain Home Medications: Aspirin 81 mg PO DAILY 07/11/17 [History] Atorvastatin Calcium 40 mg PO HS 07/11/17 [History] Clopidogrel [Plavix] 75 mg PO DAILY 07/11/17 [History] EPINEPHrine [Epipen] 0.3 mg IM ONCE PRN 07/11/17 [History] Fluticasone/Salmeterol [Advair Hfa 230-21 Mcg Inhaler] 2 puff IH BID 07/11/17 [History] Folic Acid 1 mg PO DAILY 07/11/17 [History] Nitroglycerin [Nitrostat] 0.4 mg SL Q5M PRN MDD [id number] call 911 07/11/17 [History] Potassium Chloride [Klor-Con 10] 10 meq PO DAILY 07/11/17 [History] Empagliflozin [Jardiance] 10 mg PO DAILY 01/20/18 [History] FLUoxetine HCl [Prozac] 60 mg PO DAILY 01/20/18 [History] Furosemide [Lasix] 80 mg PO BID 01/20/18 [History] Montelukast [Singulair] 10 mg PO DAILY 01/20/18 [History] Pramlintide Acetate [Symlinpen 120] 120 mg SQ TIDWM 01/20/18 [History] Albuterol Neb [Proventil Neb] 2.5 mg IH Q4HR PRN 04/11/18 [History] Isosorbide MONOnitrate (24 HR) [Imdur] 30 mg PO DAILY 04/11/18 [History] Magnesium Oxide [Magnesium] 400 mg PO DAILY 04/11/18 [History] Multivitamin [One Daily Multivitamin] 1 tab PO DAILY 04/11/18 [History] [place]-3/Dha/Epa/Fish Oil [Fish Oil 1,000 mg Softgel] 1 cap PO DAILY 04/11/18 [History] Insulin Regular U-500 [HumuLIN R U-500] 25 unit SQ TID 04/25/18 [History] Metoprolol Succinate [Toprol Xl] 50 mg PO DAILY 04/25/18 [History] Tiotropium [Spiriva] 1 puff IH DAILY 04/25/18 [History] Gabapentin [Neurontin] 800 mg PO QID #28 capsule 05/05/18 [Rx] Acetaminophen [Acetaminophen ER] 650 mg PO Q4H PRN 06/24/18 [History] Amlodipine Besylate 10 mg PO DAILY 06/24/18 [History] Pantoprazole Sodium [Protonix] 20 mg PO DAILY 06/24/18 [History] LORazepam [Ativan] 0.5 mg PO BID 06/29/18 [History] OxyCODONE/APAP 10/325 [Percocet 10/325 MG] 1 each PO Q4HR PRN 7 Days #28 tablet 07/04/18 [Rx] Allergies/Adverse Reactions: Allergy/AdvReac Type Severity Reaction Status Date / Time dapagliflozin [From [facility]] Allergy Hives Verified 01/20/18 19:08 naphazoline Allergy Hives Verified 01/20/18 19:08 cath DYE Allergy Hives Uncoded 01/20/18 19:08 Date of admission: 06/30/18 10:29 Primary care physician: Caio Henderson Consults: 06/29/18 11:21 Consult to Orthopedic Surgery [CONS] Stat Consulting Provider: [facility] Reason for Consult: "Needs pin per Dr. Harrington" Time Notified: : Call Completed: No Consult to Podiatry [CONS] Stat Consulting Provider: [facility] Reason for Consult: Needs a pin Time Notified: : Call Completed: Yes 06/29/18 13:46 Consult to Movie [facility] [CONS] Routine Reason for SW Consult: d/c planning - ecf placement 06/29/18 16:18 Consult to Infectious Diseases [CONS] Routine Consulting Provider: [facility] Reason for Consult: wound infection on right leg. Was to follow up with ID on 06/28 for managing ancef. Call Completed: Yes 06/30/18 20:30 Consult to Occupational Therapy [CONS] Routine Comment: Evaluate, develop and implement POC Reason for Consult: post knee surgery Does patient have active BEDREST order?: No Is patient medically & hemodynamically stable?: Yes Consult to Orthopedic Navigator [CONS] [CONS] Routine Consult to Movie Extra [CONS] Routine Reason for SW Consult: post op joint replacement RT Post Op Consult [CONS] Routine - Constitutional Vitals: Temp Pulse Resp BP Pulse Ox 98.8 F 73 17 109/64 98 07/04/18 15:11 07/04/18 15:11 07/04/18 15:11 07/04/18 15:11 07/04/18 15:11 General appearance: Present: A&O X 3, no acute distress Exam: Gen.: Comfortable. No acute distress. AAOx3 HEENT: oropharynx clear, Normocephalic, atraumatic Neck: Supple. No adenopathy. Cardiac: RRR, no murmur, +S1/S2, no BLE edema Pulmonary: CTA bilaterally, no wheezes, rales or rhonchi, equal chest expansion Abdomen: soft, nontender, Bowel sounds noted, no guarding Extremities: tenderness to right leg, decreased sensation of right plantar surface. Right lower extremity is a charcot foot. He has a halo and pins is right foot and ankle. Neuro: A&Ox3, moves all extremities, no focal deficits Psych: Appropriate mood and behavior - Head Head exam: Present: atraumatic, normocephalic - Eye Eye exam: Present: PERRL, conjuntiva pink, sclera anicteric Pupils: Present: PERRL - Neck Neck exam general surgery: Present: supple, trachea midline. Absent: lymphadeno aisha - Respiratory Respiratory exam: Present: CTAB. Absent: accessory muscle use, rales, rhonchi, wheezes - Cardiovascular Cardiovascular exam: Present: RRR, +S1, +S2. Absent: diastolic murmur, gallop, rubs, systolic murmur - GI/Abdominal GI/Abdominal exam: Present: normal bowel sounds, soft, no peritoneal signs. Absent: distended, tenderness - Extremities Exam Additional comments: please see above - Neurological Exam Neurological exam: Present: CN II-XII intact, oriented X3, no focal deficits. Absent: pronater drift, facial droop, speech deficit - Skin Skin exam: Present: dry, intact - Patient Status Disposition: Transfer SNF Condition: Fair Functional capacity at discharge: wheelchair bound (no ambulating on R foot) Overall status at discharge: patient is progressing back to baseline - Discharge Instructions Follow Up With: Myron Henderson [Primary Care Provider] - [facility]iat[facility] [Provider Group] Additional Instructions: Please return to follow up appointments as scheduled. Strict NWB to right lower extremity, able to ambulate to chair with assistance. External fixator in place to RLE. Xeroform around pin sites, Garry and Kerlix three times a week. - Diet and Activity Activity: as per physical therapy Diet: regular diet <Adrian Rousseau - Last Filed: 07/04/18 19:37> Orders not resulted at time of discharge: Pending orders 06/30/18 15:43 US anesthesia pain block [US] Routine 06/30/18 17:05 XR tibia fibula RT [XR] Routine 07/01/18 21:12 Type and Screen [BBK] Routine 07/02/18 00:39 Red Blood Cells [BBK] Stat Date of Encounter: 07/04/18 - Discharge Diagnosis (1) CAD (coronary artery disease) Status: Chronic Qualifiers: Coronary Disease-Associated Artery/Lesion type: [place] artery [place] vs. t ransplanted heart: [place] heart Associated angina: without angina Qualified Code(s): I25.10 - Atherosclerotic heart disease of [place] coronary artery without angina pectoris (2) Asthma Status: Chronic Qualifiers: Asthma severity: severe Asthma persistence: unspecified Asthma complication type: uncomplicated Qualified Code(s): J45.909 - Unspecified asthma, uncomplicated (3) DVT prophylaxis Status: Acute (4) Leukocytosis Priority: Secondary Status: Resolved Qualifiers: Leukocytosis type: bandemia Qualified Code(s): D72.825 - Bandemia (5) BROCK (obstructive sleep apnea) Priority: Secondary Status: Chronic (6) Type II diabetes mellitus Status: Chronic Qualifiers: Diabetes mellitus care home insulin use: with care home use Diabetes mellitus complication status: with diabetic arthropathy Diabetes mellitus complication detail: with neuropathic arthropathy Qualified Code(s): E11.610 - Type 2 diabetes mellitus with diabetic neuropathic arthropathy; Z79.4 - group home (current) use of insulin (7) Charcot's joint of foot Status: Chronic Qualifiers: Laterality: right Qualified Code(s): M14.671 - Charcot's joint, right ankle and foot (8) Right tibial fracture Status: Acute Qualifiers: Encounter type: subsequent encounter Tibia location: shaft Fracture type: closed Fracture morphology: transverse Fracture alignment: displaced Fracture healing: with routine healing Qualified Code(s): S82.221D - Displaced transverse fracture of shaft of right tibia, subsequent encounter for closed fracture with routine healing (9) History of osteomyelitis Status: Chronic Hospital course: Mr. Newsome is a 63 year old male - Time Spent with Patient Total time spent providing and/or coordinating discharge services: Date of admission: 06/30/18 10:29 Primary care physician: Caio Henderson Consults: 06/29/18 11:21 Consult to Orthopedic Surgery [CONS] Stat Consulting Provider: [facility] Reason for Consult: "Needs pin per Dr. Harrington" Time Notified: 11:22 Call Completed: No Consult to Podiatry [CONS] Stat Consulting Provider: [facility] Reason for Consult: Needs a pin Time Notified: 11:22 Call Completed: Yes 06/29/18 13:46 Consult to Movie [facility] [CONS] Routine Reason for SW Consult: d/c planning - ecf placement 06/29/18 16:18 Consult to Infectious Diseases [CONS] Routine Consulting Provider: [facility] Reason for Consult: wound infection on right leg. Was to follow up with ID on 06/28 for managing ancef. Call Completed: Yes 06/30/18 20:30 Consult to Occupational Therapy [CONS] Routine Comment: Evaluate, develop and implement POC Reason for Consult: post knee surgery Does patient have active BEDREST order?: No Is patient medically & hemodynamically stable?: Yes Consult to Orthopedic Navigator [CONS] [CONS] Routine Consult to Movie Extra [CONS] Routine Reason for SW Consult: post op joint replacement RT Post Op Consult [CONS] Routine - Constitutional Vitals: Temp Pulse Resp BP Pulse Ox 98.8 F 73 17 109/64 98 07/04/18 15:11 07/04/18 15:11 07/04/18 15:11 07/04/18 15:11 07/04/18 15:11 - Attending Attestation I examined this patient and my medical decision-making was reviewed with the Resident Physician on 07/04/18. I agree with the documented findings, disposition and treatment plan as described except to the extent set forth below. Mr Newsome has been admitted for R tibial fracture and osteomyelitis. He is now in external fixator. He has been approved for SNF and abx completed. He is now afebrile and ready for discharge Exam alert Pleasant Mucus membranes dry Heart not tachy No wheeze abd soft Plan D/C to SNF today. Addendum entered and electronically signed by Adrian Rousseau DO 07/04/18 19:39: Discharge time 37min
--- NOTE | 2018-07-04 16:45 | Podiatry Progress Note ---
Date of Encounter: 07/04/18 Time of Encounter: 12:00 - Assessment and Plan (1) Closed tibia fracture Status: Acute patient s/p Adjustment of external fixation right lower extremity per Juany Pending discharge to F Will need dressing changes MWF per nursing staff at facility NWB to RLE Will need follow up in wound care clinic 1 week after discharge. Call with any trauma- fevers, chills, n/v or fls. Qualifiers: Encounter type: initial encounter Tibia location: proximal Fracture morphology: other fracture Laterality: right Qualified Code(s): S82.191A - Other fracture of upper end of right tibia, initial encounter for closed fracture Subjective Interval history: Following patient s/p external fixation device with Adjustment of external fixation right lower extremity per on 06/30. Patient has also undergone tibial pinning per Bo. Patient resting comfortably while in bed on arrival. Dressing to fixation device performed today per Nursing Staff. Patient states that he is in pain but tolerable with percocet. States he has been accepted to a nursing facility and will hopefully be leaving soon. Patient states that the pin closest to his knee on the medial side was hurting so he "moved his leg back and forth until it loosened and now it does not hurt" device is intact and does not appear loose on exam. Patient denies any fevers, chills n/v or fls Patient denies any calf pain or sob Objective - Vital Signs Vital Signs: Vital Signs Temp Pulse Resp BP Pulse Ox 07/04/18 15:11 98.8 F 73 17 109/64 98 07/04/18 11:20 98.8 F 77 18 117/66 96 07/04/18 08:01 97.7 F 73 17 128/61 97 07/04/18 04:37 97.9 F 70 18 130/80 96 07/03/18 23:30 97.7 F 73 17 127/72 98 07/03/18 22:13 16 98 07/03/18 18:49 97.6 F 75 18 125/69 97 Intake and Output 07/04/18 07/04/18 07/04/18 07:59 15:59 23:59 Intake Total 100 / 100 Output Total 1900 / 1900 3400 / 3400 Balance -1800 / -1800 -3400 / -3400 Intake: IV Fluids 100 / 100 Ancef 2,000 MG In 0.9 % Sodium 100 / 100 Chloride 100 ML @ 200 mls/hr IVPB Q8HR [facility] Rx#:[id number] Output: Urine 1900 / 1900 Catheter 3400 / 3400 Other: Weight 136.6 kg Blood Glucose* 180 Patient Weight 07/04/18 23:59 Weight 136.6 kg - Exam Exam: Awake, alert and oriented Toes warm Patient is neuropathic, minimal sensation to touch Cap refill <3 seconds No calf pain with manual compression Ex Fix in place and dressing intact- no drainage noted, dressing was changed today per nursing staff - Lab Result Diagrams: 07/04/18 05:00 07/04/18 05:00 Labs: Abnormal lab results RBC 3.77 M/mcL (4.19-5.50) L 07/04/18 05:00 Hgb 10.1 g/dL (12.9-16.9) L 07/04/18 05:00 Hct 31.8 % (37.5-50.1) L 07/04/18 05:00 MCH 26.8 pg (28.0-33.3) L 07/04/18 05:00 RDW 15.5 % (11.5-14.5) H 07/04/18 05:00 Eosinophils # 0.7 K/mcL (0.0-0.6) H 07/04/18 05:00 PT 13.3 Seconds (9.4-12.1) H 06/30/18 04:49 Sodium 130 mEq/L (136-145) L 07/04/18 05:00 Chloride 94 mEq/L (98-107) L 07/04/18 05:00 Carbon Dioxide 30 mEq/L (23-29) H 07/04/18 05:00 Creatinine 0.62 mg/dL (0.70-1.30) L 07/04/18 05:00 Glucose 250 mg/dL (70-105) H 07/04/18 05:00 POC Glucose 180 mg/dL (70-99) H 07/04/18 15:13 Calculated Osmolality 279 (280-300) L 07/04/18 05:00 Consult Discharge Plan - Plan Additional Instructions: Please return to follow up appointments as scheduled. Strict NWB to right lower extremity, able to ambulate to chair with assistance. External fixator in place to RLE. Xeroform around pin sites, Garry and Kerlix three times a week. Referrals: [facility] [Provider Group] Myron Henderson [Primary Care Provider] - Prescriptions: RX: OxyCODONE/APAP 10/325 [Percocet 10/325 MG] 1 each PO Q4HR PRN 7 Days #28 tablet PRN Reason: Pain
--- NOTE | 2018-07-04 16:48 | Physician Discharge Referral ---
ExtendedCare Referral Info Transfer To: [facility] Institutional Level of Care: Skilled - Diagnosis (1) Right tibial fracture Priority: Primary Status: Acute (2) CAD (coronary artery disease) Priority: Secondary Status: Chronic (3) Charcot's joint of foot Priority: Secondary Status: Chronic (4) History of osteomyelitis Priority: Secondary Status: Chronic (5) BROCK (obstructive sleep apnea) Priority: Secondary Status: Chronic (6) Type II diabetes mellitus Priority: Secondary Status: Chronic (7) Asthma Priority: Secondary Status: Chronic (8) DVT prophylaxis Priority: Secondary Status: Acute Prognosis: Good Aware of Diagnosis: Patient Aware of Prognosis: Patient - Transfer Medications Prescriptions: OxyCODONE/APAP 10/325 [Percocet 10/325 MG] 1 each PO Q4HR PRN 7 Days #28 tablet PRN Reason: Pain Home Medications: Aspirin 81 mg PO DAILY 07/11/17 [History] Atorvastatin Calcium 40 mg PO HS 07/11/17 [History] Clopidogrel [Plavix] 75 mg PO DAILY 07/11/17 [History] EPINEPHrine [Epipen] 0.3 mg IM ONCE PRN 07/11/17 [History] Fluticasone/Salmeterol [Advair Hfa 230-21 Mcg Inhaler] 2 puff IH BID 07/11/17 [History] Folic Acid 1 mg PO DAILY 07/11/17 [History] Nitroglycerin [Nitrostat] 0.4 mg SL Q5M PRN MDD [id number] call 911 07/11/17 [History] Potassium Chloride [Klor-Con 10] 10 meq PO DAILY 07/11/17 [History] Empagliflozin [Jardiance] 10 mg PO DAILY 01/20/18 [History] FLUoxetine HCl [Prozac] 60 mg PO DAILY 01/20/18 [History] Furosemide [Lasix] 80 mg PO BID 01/20/18 [History] Montelukast [Singulair] 10 mg PO DAILY 01/20/18 [History] Pramlintide Acetate [Symlinpen 120] 120 mg SQ TIDWM 01/20/18 [History] Albuterol Neb [Proventil Neb] 2.5 mg IH Q4HR PRN 04/11/18 [History] Isosorbide MONOnitrate (24 HR) [Imdur] 30 mg PO DAILY 04/11/18 [History] Magnesium Oxide [Magnesium] 400 mg PO DAILY 04/11/18 [History] Multivitamin [One Daily Multivitamin] 1 tab PO DAILY 04/11/18 [History] [place]-3/Dha/Epa/Fish Oil [Fish Oil 1,000 mg Softgel] 1 cap PO DAILY 04/11/18 [History] Insulin Regular U-500 [HumuLIN R U-500] 25 unit SQ TID 04/25/18 [History] Metoprolol Succinate [Toprol Xl] 50 mg PO DAILY 04/25/18 [History] Tiotropium [Spiriva] 1 puff IH DAILY 04/25/18 [History] Gabapentin [Neurontin] 800 mg PO QID #28 capsule 05/05/18 [Rx] Acetaminophen [Acetaminophen ER] 650 mg PO Q4H PRN 06/24/18 [History] Amlodipine Besylate 10 mg PO DAILY 06/24/18 [History] Pantoprazole Sodium [Protonix] 20 mg PO DAILY 06/24/18 [History] LORazepam [Ativan] 0.5 mg PO BID 06/29/18 [History] OxyCODONE/APAP 10/325 [Percocet 10/325 MG] 1 each PO Q4HR PRN 7 Days #28 tablet 07/04/18 [Rx] Allergies/Adverse Reactions: Allergy/AdvReac Type Severity Reaction Status Date / Time dapagliflozin [From [facility]] Allergy Hives Verified 01/20/18 19:08 naphazoline Allergy Hives Verified 01/20/18 19:08 cath DYE Allergy Hives Uncoded 01/20/18 19:08 - Respiratory Orders None Smoking Cessation: Smoking cessation has been advised. For more information, call the [place] Tobacco Quit Line at 1-414-CKTX-NOW. - Advance Directives Code Status: Full Code - Mobility Orders Chair - Rehabiliation Orders Rehab Potential: Fair - Diet Orders Regular CERTIFICATION: [facility]. Infectious disease okay'd discontinuation of antibiotics. Dr. Harrington with [facility] to follow-up and schedule outpatient in 1-2 weeks. Pain management rx for 1 week then transition to physician prescriber at [facility]. I certify that the transfer of the above named patient to an Extended Care Facility is necessary for the continuing treatment of the diagnosis listed. The above information is true and accurate reflection of patient's current condition. Confidential - Redisclosure prohibited without a patient's written consent.
== END 2018-07-04 18:55 | DRG 493 ==
LOC: 3NENU 10:32 → EMEROOARM 10:32 → SUATTDRO 11:31 → 3NENU 12:20 → SUATTDRO 06-30 10:29
PROVIDERS: ADMIT Internal Medicine Cardiovascular Disease; ATTEND Internal Medicine

== ENCOUNTER 2019-02-22 09:32 | Inpatient (IN) ==
[2019-02-22] MEDS ORDERED: Ipratropium/Albuterol Neb 3 ML ONE (09:52)
[2019-02-22] MEDS ORDERED: Ipratropium/Albuterol Neb 3 ML IH ONE (09:53)
--- NOTE | 2019-02-22 09:59 | Emergency Department Note ---
Disposition Clinical Impression: Hospital-acquired pneumonia Disposition: Admitted As Inpatient Condition: Fair Time of Disposition: 13:49 General Adult HPI - General Chief complaint: ED Shortness of Breath/Dyspnea Stated complaint: Asthma,[place] Time Seen by Provider: 02/22/19 09:39 Source: patient Limitations: no limitations Nursing Notes Reviewed: Yes Vital Signs Reviewed: Yes - History of Present Illness Pain Scale: 10 - Related Data Home Medications Medication Instructions Recorded Confirmed Albuterol Neb [Proventil Neb] 2.5 mg IH Q4HR PRN 09/01/18 02/22/19 Aspirin [Lo-Dose Aspirin EC] 81 mg PO DAILY 09/01/18 02/22/19 Atorvastatin [Lipitor] 40 mg PO DAILY 09/01/18 02/22/19 Clopidogrel [Plavix] 75 mg PO DAILY 09/01/18 02/22/19 EPINEPHrine [Epipen] 0.3 mg IM ONCE PRN 09/01/18 02/22/19 Empagliflozin [Jardiance] 10 mg PO DAILY 09/01/18 02/22/19 Fluticasone/Salmeterol [Advair Hfa 2 puff IH BID 09/01/18 02/22/19 230-21 Mcg Inhaler] Folic Acid 1 mg PO DAILY 09/01/18 02/22/19 GlipiZIDE XL (24 HR) [Glucotrol XL] 5 mg PO 0800 09/01/18 02/22/19 LORazepam [Ativan] 0.5 mg PO BID 09/01/18 02/22/19 Montelukast [Singulair] 10 mg PO HS 09/01/18 02/22/19 Nitroglycerin [Nitrostat] 0.4 mg SL Q5MIN PRN MDD MAX 3 09/01/18 02/22/19 DOSE/24HOURS [place]-3 Fatty Acids/Fish Oil [Eql 1 cap PO DAILY 09/01/18 02/22/19 [place]-3 Fish Oil 1,000 mg] Pantoprazole Sodium [Protonix] 20 mg PO DAILY 09/01/18 02/22/19 Tiotropium [Spiriva] 18 mcg IH DAILY 09/01/18 02/22/19 Albuterol Sulfate [Ventolin Hfa] 2 puff IH Q4H PRN 10/14/18 02/22/19 Amlodipine Besylate 10 mg PO DAILY 10/14/18 02/22/19 Fluticasone Propionate Nasal 2 spr NS DAILY PRN 10/14/18 02/22/19 [Flonase] Isosorbide MONOnitrate [Isosorbide 30 mg PO DAILY 10/14/18 02/22/19 Mononitrate ER] Magnesium Oxide [Magnesium] 400 mg PO DAILY 10/14/18 02/22/19 Metoprolol Succinate 50 mg PO DAILY 10/14/18 02/22/19 Pramlintide Acetate [Symlinpen 120] 120 mcg SQ TID 10/14/18 02/22/19 Docusate [Colace] 100 mg PO BID PRN 10/27/18 02/22/19 FLUoxetine HCl [Prozac] 80 mg PO DAILY 10/27/18 02/22/19 Ferrous Sulfate [Iron] 325 mg PO DAILY 10/27/18 02/22/19 Multivit-Min/Iron/Folic Acid/K 1 each PO DAILY 10/27/18 02/22/19 [Adults Multivitamin Tablet] Tamsulosin HCl [Flomax] 0.4 mg PO DAILY 10/28/18 02/22/19 Furosemide [Lasix] 40 mg PO BID 11/30/18 02/22/19 Loratadine [Allergy Relief] 10 mg PO DAILY 11/30/18 02/22/19 Omalizumab [XOLAIR (For Outpatient 150 mg SQ Q2W 02/22/19 02/22/19 Infusion)] OxyCODONE/APAP 10/325 [Percocet 1 tab PO Q4HR PRN 02/22/19 02/22/19 10/325 MG] Previous Rx's Medication Instructions Recorded Catheter [Clean-Cath] 1 each MC TID PRN #30 each 12/22/18 Allergies Allergy/AdvReac Type Severity Reaction Status Date / Time dapagliflozin [From [facility]] Allergy Hives Verified 10/28/18 13:46 naphazoline Allergy Hives Verified 10/28/18 13:46 cath DYE Allergy Hives Uncoded 10/28/18 13:46 Past Medical History - Past Medical History Medical history: Reports: arthritis, asthma, atrial fibrillation, coronary artery disease, DVT, diabetes, GERD, hyperlipidemia, hypertension, myocardial infarction, other Surgical history: Reports: angioplasty/stent, appendectomy, cataract, cholecystectomy, coronary bypass (CABG), herniorrhaphy Psychiatric history: Reports: no psych history - Social History Smoking Status: Never smoker Smokeless Tobacco Status: No Alcohol use: Reports: none Drug use: Reports: none Physical Exam - General Limitations: no limitations General appearance: alert, in no apparent distress Course Vital Signs Temperature 97.4 F L 02/22/19 09:42 Pulse Rate 105 02/22/19 09:42 Respiratory Rate 20 02/22/19 09:42 Blood Pressure 108/69 02/22/19 09:42 O2 Sat by Pulse Oximetry 98 02/22/19 09:42 Temperature 97.4 F L 02/22/19 09:42 Pulse Rate 72 02/22/19 13:45 Respiratory Rate 20 02/22/19 13:45 Blood Pressure 133/60 02/22/19 13:00 O2 Sat by Pulse Oximetry 92 02/22/19 13:45 Oxygen Delivery Oxygen Delivery Nasal Cannula Medical Decision Making - MDM Narrative Medical decision making narrative: Chest X-Ray 02/22/19 09:38 IMPRESSION: Bilateral airspace opacities, increased since prior examination, likely representing multifocal pneumonia or pulmonary edema. Probable small bilateral pleural effusions. D/ / Joceline Campoverde MD / Joceline Campoverde MD Interpreting Provider: Joceline Campoverde MD 1040 hrs. reviewed patient's chart he had pneumonia last time and COPD exacerbation. It appears that he has pneumonia again on this chest x-ray. Because is within 90 days of last admission we will treat him as a hospital- acquired pneumonia. Started him on antibiotics here. We will also start SIRS criteria with him out on blood cultures and lactate. He will need admission. - Lab Data Result diagrams: 02/22/19 10:13 02/22/19 10:13 Lab Results 02/22/19 02/22/19 02/22/19 Range/Units 10:13 10:13 10:13 WBC 9.0 (4.3-11.1) K/mcL RBC 3.09 L (4.19-5.50) M/mcL Hgb 8.4 L (12.9-16.9) g/dL Hct 26.8 L (37.5-50.1) % MCV 86.7 (83.0-100.0) fL MCH 27.2 L (28.0-33.3) pg MCHC 31.3 L (31.6-35.5) g/dL RDW 17.3 H (11.5-14.5) % Plt Count 247 (140-400) K/mcL MPV 11.2 (9.4-12.4) fL Immature Gran % 0.8 (0-4) % Seg Neutrophils % 82.0 % Lymphocytes % 8.3 % Monocytes % 6.3 % Eosinophils % 1.8 % Basophils % 0.8 % Neutrophils # 7.4 (1.6-8.9) K/mcL Lymphocytes # 0.8 (0.6-4.6) K/mcL Monocytes # 0.6 (0.0-1.3) K/mcL Eosinophils # 0.2 (0.0-0.6) K/mcL Basophils # 0.1 (0.0-0.2) K/mcL ABG pH (7.32-7.45) pH Units ABG pCO2 (35-45) mmHg ABG pO2 (85-104) mmHg ABG HCO3 (21-27) mEq/L ABG Total CO2 (20-26) mEq/L ABG O2 Saturation (95-98) % ABG Base Excess (-2 to 3) mEq/L O2 Delivery Device Inspired O2 (1-15=lpm aq44-211=%) Sodium 125 L (136-145) mEq/L Potassium 4.7 (3.5-5.1) mEq/L Chloride 93 L (98-107) mEq/L Carbon Dioxide 22 L (23-29) mEq/L BUN 25 H (8-23) mg/dL Creatinine 2.12 H (0.70-1.30) mg/dL Est GFR ( Amer) 38 L (> 60) Est GFR (Non-Af Amer) 31 L (> 60) BUN/Creatinine Ratio 12 (6-26) Glucose 122 H (70-105) mg/dL Calculated Osmolality 266 L (280-300) Lactic Acid (0.5-2.2) mmol/L Calcium 8.4 L (8.6-10.3) mg/dL Troponin I < 0.03 (< 0.04) ng/mL B-Natriuretic Peptide (Less than 100) pg/mL 02/22/19 02/22/19 02/22/19 Range/Units 10:13 10:54 13:04 WBC (4.3-11.1) K/mcL RBC (4.19-5.50) M/mcL Hgb (12.9-16.9) g/dL Hct (37.5-50.1) % MCV (83.0-100.0) fL MCH (28.0-33.3) pg MCHC (31.6-35.5) g/dL RDW (11.5-14.5) % Plt Count (140-400) K/mcL MPV (9.4-12.4) fL Immature Gran % (0-4) % Seg Neutrophils % % Lymphocytes % % Monocytes % % Eosinophils % % Basophils % % Neutrophils # (1.6-8.9) K/mcL Lymphocytes # (0.6-4.6) K/mcL Monocytes # (0.0-1.3) K/mcL Eosinophils # (0.0-0.6) K/mcL Basophils # (0.0-0.2) K/mcL ABG pH 7.33 (7.32-7.45) pH Units ABG pCO2 39 (35-45) mmHg ABG pO2 38 L* (85-104) mmHg ABG HCO3 21 (21-27) mEq/L ABG Total CO2 22 (20-26) mEq/L ABG O2 Saturation 68 L (95-98) % ABG Base Excess -5 L (-2 to 3) mEq/L O2 Delivery Device Cannula Inspired O2 2.0 (1-15=lpm uh45-308=%) Sodium (136-145) mEq/L Potassium (3.5-5.1) mEq/L Chloride (98-107) mEq/L Carbon Dioxide (23-29) mEq/L BUN (8-23) mg/dL Creatinine (0.70-1.30) mg/dL Est GFR ( Amer) (> 60) Est GFR (Non-Af Amer) (> 60) BUN/Creatinine Ratio (6-26) Glucose (70-105) mg/dL Calculated Osmolality (280-300) Lactic Acid 0.9 (0.5-2.2) mmol/L Calcium (8.6-10.3) mg/dL Troponin I (< 0.04) ng/mL B-Natriuretic Peptide 633 H (Less than 100) pg/mL 02/22/19 Range/Units 13:18 WBC (4.3-11.1) K/mcL RBC (4.19-5.50) M/mcL Hgb (12.9-16.9) g/dL Hct (37.5-50.1) % MCV (83.0-100.0) fL MCH (28.0-33.3) pg MCHC (31.6-35.5) g/dL RDW (11.5-14.5) % Plt Count (140-400) K/mcL MPV (9.4-12.4) fL Immature Gran % (0-4) % Seg Neutrophils % % Lymphocytes % % Monocytes % % Eosinophils % % Basophils % % Neutrophils # (1.6-8.9) K/mcL Lymphocytes # (0.6-4.6) K/mcL Monocytes # (0.0-1.3) K/mcL Eosinophils # (0.0-0.6) K/mcL Basophils # (0.0-0.2) K/mcL ABG pH 7.36 (7.32-7.45) pH Units ABG pCO2 35 (35-45) mmHg ABG pO2 64 L (85-104) mmHg ABG HCO3 20 L (21-27) mEq/L ABG Total CO2 21 (20-26) mEq/L ABG O2 Saturation 92 L (95-98) % ABG Base Excess -5 L (-2 to 3) mEq/L O2 Delivery Device Cannula Inspired O2 2.0 (1-15=lpm tl40-530=%) Sodium (136-145) mEq/L Potassium (3.5-5.1) mEq/L Chloride (98-107) mEq/L Carbon Dioxide (23-29) mEq/L BUN (8-23) mg/dL Creatinine (0.70-1.30) mg/dL Est GFR ( Amer) (> 60) Est GFR (Non-Af Amer) (> 60) BUN/Creatinine Ratio (6-26) Glucose (70-105) mg/dL Calculated Osmolality (280-300) Lactic Acid (0.5-2.2) mmol/L Calcium (8.6-10.3) mg/dL Troponin I (< 0.04) ng/mL B-Natriuretic Peptide (Less than 100) pg/mL Critical Care Time Critical Care Time: Yes Total Critical Care Time: 50 Attestation: Excluding any separately billable procedures. Attestation Statement - Attestation Attestation: This documentation is done with the assistance of Dragon dictation. Despite efforts made to ensure accuracy, there may be inaccuracies in copy editor or spelling and typographical errors. I examined this patient and my medical decision-making was reviewed with the Resident Physician. I agree with the documented findings, disposition and treatment plan as described except to the extent set forth below. Patient was seen and evaluated by Dr. Love I agree with their evaluation and management plan, I supervised care the patient's stay. Patient presents today with 1 day of dyspnea. History of asthma and allergies. Oxygen dependent at night. Was sent over from Dr. Buenrostro's office who he sees for allergy. They gave him 2 breathing treatments there and start him on steroids and same over to the ER. He was seen here 2 months ago and admitted impressively intubated secondary to his asthma. He is his chest is tight today but this is negative for asthma tach. He is also being treated on his right lower extremity due to a Charcot joint, he has an immobilization on there that been there since May he is not any blood thinners at this time. He is not had a history of DVT in the past. Were negative and given breathing treatments here if he is getting better and his labs look good we may still have to admit him. If he is not getting better we may also consider scanning his lower extremities to make sure there is no signs of clot. He is in agreement with this plan. I reviewed the residents documentation and agree with the residents assessment and plan of care. I have personally had face to face time with the patient. (Brief History, Brief Exam, and MDM) I personally supervised and was present for the thornton/critical portions of the following procedures completed by the resident: EKG was interpreted by the resident under my supervision, I agree with their interpretation.
--- NOTE | 2019-02-22 10:00 | Emergency Department Note ---
Disposition Clinical Impression: Hospital-acquired pneumonia Disposition: Admitted As Inpatient Condition: Fair Referrals: Myron Henderson [Primary Care Provider] - Forms: ED Satisfaction Letter Time of Disposition: 13:20 General Adult HPI - General Chief complaint: ED Shortness of Breath/Dyspnea Stated complaint: Asthma,[place] Time Seen by Provider: 02/22/19 09:39 Source: patient Mode of arrival: private vehicle Limitations: no limitations Nursing Notes Reviewed: Yes Vital Signs Reviewed: Yes - History of Present Illness HPI Narrative: 64-year-old male with a past medical history of admission to the ICU with intubation for previous asthma exacerbation approximately 2 months ago who presents with difficulty in breathing. He was seen at Dr. Reyna Cooper's office this morning, had two breathing treatments, received PO steroids, and sent here for further evaluation. Pt started to feel poorly yesterday. No cough, no fevers or chills. Pain Scale: 10 - Related Data Home Medications Medication Instructions Recorded Confirmed Albuterol Neb [Proventil Neb] 2.5 mg IH Q4HR PRN 09/01/18 02/22/19 Aspirin [Lo-Dose Aspirin EC] 81 mg PO DAILY 09/01/18 02/22/19 Atorvastatin [Lipitor] 40 mg PO DAILY 09/01/18 02/22/19 Clopidogrel [Plavix] 75 mg PO DAILY 09/01/18 02/22/19 EPINEPHrine [Epipen] 0.3 mg IM ONCE PRN 09/01/18 02/22/19 Empagliflozin [Jardiance] 10 mg PO DAILY 09/01/18 02/22/19 Fluticasone/Salmeterol [Advair Hfa 2 puff IH BID 09/01/18 02/22/19 230-21 Mcg Inhaler] Folic Acid 1 mg PO DAILY 09/01/18 02/22/19 GlipiZIDE XL (24 HR) [Glucotrol XL] 5 mg PO 0800 09/01/18 02/22/19 LORazepam [Ativan] 0.5 mg PO BID 09/01/18 02/22/19 Montelukast [Singulair] 10 mg PO HS 09/01/18 02/22/19 Nitroglycerin [Nitrostat] 0.4 mg SL Q5MIN PRN MDD MAX 3 09/01/18 02/22/19 DOSE/24HOURS [place]-3 Fatty Acids/Fish Oil [Eql 1 cap PO DAILY 09/01/18 02/22/19 [place]-3 Fish Oil 1,000 mg] Pantoprazole Sodium [Protonix] 20 mg PO DAILY 09/01/18 02/22/19 Tiotropium [Spiriva] 18 mcg IH DAILY 09/01/18 02/22/19 Albuterol Sulfate [Ventolin Hfa] 2 puff IH Q4H PRN 10/14/18 02/22/19 Amlodipine Besylate 10 mg PO DAILY 10/14/18 02/22/19 Fluticasone Propionate Nasal 2 spr NS DAILY PRN 10/14/18 02/22/19 [Flonase] Isosorbide MONOnitrate [Isosorbide 30 mg PO DAILY 10/14/18 02/22/19 Mononitrate ER] Magnesium Oxide [Magnesium] 400 mg PO DAILY 10/14/18 02/22/19 Metoprolol Succinate 50 mg PO DAILY 10/14/18 02/22/19 Pramlintide Acetate [Symlinpen 120] 120 mcg SQ TID 10/14/18 02/22/19 Docusate [Colace] 100 mg PO BID PRN 10/27/18 02/22/19 FLUoxetine HCl [Prozac] 80 mg PO DAILY 10/27/18 02/22/19 Ferrous Sulfate [Iron] 325 mg PO DAILY 10/27/18 02/22/19 Multivit-Min/Iron/Folic Acid/K 1 each PO DAILY 10/27/18 02/22/19 [Adults Multivitamin Tablet] Tamsulosin HCl [Flomax] 0.4 mg PO DAILY 10/28/18 02/22/19 Furosemide [Lasix] 40 mg PO BID 11/30/18 02/22/19 Loratadine [Allergy Relief] 10 mg PO DAILY 11/30/18 02/22/19 Omalizumab [XOLAIR (For Outpatient 150 mg SQ Q2W 02/22/19 02/22/19 Infusion)] OxyCODONE/APAP 10/325 [Percocet 1 tab PO Q4HR PRN 02/22/19 02/22/19 10/325 MG] Previous Rx's Medication Instructions Recorded Catheter [Clean-Cath] 1 each MC TID PRN #30 each 05/24/19 Allergies Allergy/AdvReac Type Severity Reaction Status Date / Time dapagliflozin [From [facility]] Allergy Hives Verified 10/28/18 13:46 naphazoline Allergy Hives Verified 10/28/18 13:46 cath DYE Allergy Hives Uncoded 10/28/18 13:46 Review of Systems: In addition to that documented in the HPI above, the additional ROS was obtained: Constitutional: Denies fevers or chills Eyes: Denies vision changes ENMT: Denies sore throat CV: Denies chest pain Resp: Reports SOB GI: Denies vomiting or diarrhea : Denies painful urination MSK: Denies recent trauma Skin: Denies new rashes Neuro: Denies new numbness or tingling Reports weakness All systems ED: reviewed and negative except as stated. Review of Systems: As Per HPI Past Medical History - Past Medical History Attestation: Yes The following information was validated with the patient. Medical history: Reports: arthritis, asthma, atrial fibrillation, coronary artery disease, DVT, diabetes, GERD, hyperlipidemia, hypertension, myocardial infarction, other Surgical history: Reports: angioplasty/stent, appendectomy, cataract, cholecystectomy, coronary bypass (CABG), herniorrhaphy Psychiatric history: Reports: no psych history - Social History Smoking Status: Never smoker Smokeless Tobacco Status: No Alcohol use: Reports: none Drug use: Reports: none Physical Exam General: A&O x 3. Appears to be mildly distressed. Well developed, well nourished. Head: atraumatic, normocephalic. ENT: No conjunctival injection, no scleral icterus. PERRLA. EOMI. Oropharynx non- erythematous. mucous membranes moist. Neuro: No focal deficits, no speech deficit, no facial droop, mentating well. BUE/BLE Str 5/5. Pulm: Diffuse expiratory wheezing in all lung [place] with decreased breath sounds Cardio: RRR no m/r/g. Chest not tender to palpation. Abd: Soft, non-distended, rounded. Normoactive bowel sounds. Non-tender to palpation. No guarding. Non rigid. Extremities: Radial pulses 2+ tony, RLE bandaged and not visualized. LLE with moderate non-pitting edema. Dorsalis pedis in LLE 1+ Psych: Appropriate mood and affect. Answers questions appropriately. Cooperative with exam. - General Limitations: no limitations General appearance: alert, in no apparent distress Course Vital Signs Temperature 97.4 F L 02/22/19 09:42 Pulse Rate 105 02/22/19 09:42 Respiratory Rate 20 02/22/19 09:42 Blood Pressure 108/69 02/22/19 09:42 O2 Sat by Pulse Oximetry 98 02/22/19 09:42 Temperature 97.4 F L 02/22/19 09:42 Pulse Rate 73 02/22/19 11:13 Respiratory Rate 19 02/22/19 13:03 Blood Pressure 119/68 02/22/19 11:13 O2 Sat by Pulse Oximetry 92 02/22/19 13:03 Oxygen Delivery Oxygen Delivery Nasal Cannula Medical Decision Making - MDM Narrative Medical decision making narrative: 64-year-old male with significant past medical history and presents for difficulty in breathing that has been going on for 1 day. Patient has had previous admissions to the ICU with mechanical ventilation within the last 2 months. Suspect the patient will be admitted. We will perform workup to include CBC, BMP, troponin, EKG, chest x-ray. We will administer 3 duo nebs. Chest x-ray was concerning for multilobar pneumonia, given the patient was admitted to the hospital within the last 3 months we will treat as hospital- acquired pneumonia. Chart review revealed that the patient has had previous microbiology that was sensitive to Levaquin, and that he has been administered Zosyn within the last 3 months, so we will administer cefepime, Levaquin, vancomycin. We will obtain blood cultures and lactic acid. We will admit to [facility]. Further review of the transfer phone call revealed that he received 40 mg of prednisone at Dr. Cooper's office by mouth, we will administer 60 mg of IV Solu-Medrol. Patient continued to complain of shortness of breath and had diffuse end expiratory wheezes in all lung [place], we will administer an hour-long breathing treatment. Patient was admitted to the hospitalist Dr. Ott during a bedside handoff. Results of the workup including any imaging and/or labwork was shared with the patient at bedside. Patient was given an opportunity to ask questions at bedside and all of their concerns were addressed. Patient verbalized understanding and agreement with plan of care. Pt remained stable while in the department. - Medical Records Medical records reviewed: Yes I reviewed the patient's medical records. - Lab Data Lab results reviewed: Yes I reviewed the patient's lab results. Result diagrams: 02/22/19 10:13 02/22/19 10:13 Lab Results 02/22/19 02/22/19 02/22/19 Range/Units 10:13 10:13 10:13 WBC 9.0 (4.3-11.1) K/mcL RBC 3.09 L (4.19-5.50) M/mcL Hgb 8.4 L (12.9-16.9) g/dL Hct 26.8 L (37.5-50.1) % MCV 86.7 (83.0-100.0) fL MCH 27.2 L (28.0-33.3) pg MCHC 31.3 L (31.6-35.5) g/dL RDW 17.3 H (11.5-14.5) % Plt Count 247 (140-400) K/mcL MPV 11.2 (9.4-12.4) fL Immature Gran % 0.8 (0-4) % Seg Neutrophils % 82.0 % Lymphocytes % 8.3 % Monocytes % 6.3 % Eosinophils % 1.8 % Basophils % 0.8 % Neutrophils # 7.4 (1.6-8.9) K/mcL Lymphocytes # 0.8 (0.6-4.6) K/mcL Monocytes # 0.6 (0.0-1.3) K/mcL Eosinophils # 0.2 (0.0-0.6) K/mcL Basophils # 0.1 (0.0-0.2) K/mcL ABG pH (7.32-7.45) pH Units ABG pCO2 (35-45) mmHg ABG pO2 (85-104) mmHg ABG HCO3 (21-27) mEq/L ABG Total CO2 (20-26) mEq/L ABG O2 Saturation (95-98) % ABG Base Excess (-2 to 3) mEq/L O2 Delivery Device Inspired O2 (1-15=lpm mg51-841=%) Sodium 125 L (136-145) mEq/L Potassium 4.7 (3.5-5.1) mEq/L Chloride 93 L (98-107) mEq/L Carbon Dioxide 22 L (23-29) mEq/L BUN 25 H (8-23) mg/dL Creatinine 2.12 H (0.70-1.30) mg/dL Est GFR ( Amer) 38 L (> 60) Est GFR (Non-Af Amer) 31 L (> 60) BUN/Creatinine Ratio 12 (6-26) Glucose 122 H (70-105) mg/dL Calculated Osmolality 266 L (280-300) Lactic Acid (0.5-2.2) mmol/L Calcium 8.4 L (8.6-10.3) mg/dL Troponin I < 0.03 (< 0.04) ng/mL B-Natriuretic Peptide (Less than 100) pg/mL 02/22/19 02/22/19 02/22/19 Range/Units 10:13 10:54 13:04 WBC (4.3-11.1) K/mcL RBC (4.19-5.50) M/mcL Hgb (12.9-16.9) g/dL Hct (37.5-50.1) % MCV (83.0-100.0) fL MCH (28.0-33.3) pg MCHC (31.6-35.5) g/dL RDW (11.5-14.5) % Plt Count (140-400) K/mcL MPV (9.4-12.4) fL Immature Gran % (0-4) % Seg Neutrophils % % Lymphocytes % % Monocytes % % Eosinophils % % Basophils % % Neutrophils # (1.6-8.9) K/mcL Lymphocytes # (0.6-4.6) K/mcL Monocytes # (0.0-1.3) K/mcL Eosinophils # (0.0-0.6) K/mcL Basophils # (0.0-0.2) K/mcL ABG pH 7.33 (7.32-7.45) pH Units ABG pCO2 39 (35-45) mmHg ABG pO2 38 L* (85-104) mmHg ABG HCO3 21 (21-27) mEq/L ABG Total CO2 22 (20-26) mEq/L ABG O2 Saturation 68 L (95-98) % ABG Base Excess -5 L (-2 to 3) mEq/L O2 Delivery Device Cannula Inspired O2 2.0 (1-15=lpm rp45-486=%) Sodium (136-145) mEq/L Potassium (3.5-5.1) mEq/L Chloride (98-107) mEq/L Carbon Dioxide (23-29) mEq/L BUN (8-23) mg/dL Creatinine (0.70-1.30) mg/dL Est GFR ( Amer) (> 60) Est GFR (Non-Af Amer) (> 60) BUN/Creatinine Ratio (6-26) Glucose (70-105) mg/dL Calculated Osmolality (280-300) Lactic Acid 0.9 (0.5-2.2) mmol/L Calcium (8.6-10.3) mg/dL Troponin I (< 0.04) ng/mL B-Natriuretic Peptide 633 H (Less than 100) pg/mL - Radiology Data Radiology results reviewed: Yes I reviewed the patient's radiology results. Chest X-Ray 02/22/19 09:38 IMPRESSION: Bilateral airspace opacities, increased since prior examination, likely representing multifocal pneumonia or pulmonary edema. Probable small bilateral pleural effusions. D/ / Joceline Campoverde MD / Joceline Campoverde MD Interpreting Provider: Joceline Campoverde MD - EKG Data EKG #1 EKG attestation: Yes I reviewed and interpreted this EKG. EKG results narrative: HR 70, rhythm sinus, axis normal. DE 292 and prolonged, QRS 113, QTc 474. Minimal ST elevation in aVR which is also noted on previous study dated 01/04/2019. Previous study also demonstrates prolonged DE interval.
[2019-02-22 10:28] LABS: Basophils # 0.1 K/mcL (0.0-0.2); Basophils % 0.8 %; Eosinophils # 0.2 K/mcL (0.0-0.6); Eosinophils % 1.8 %; Hematocrit 26.8 % (37.5-50.1); Hemoglobin 8.4 g/dL (12.9-16.9); Immature Granulocytes % 0.8 % (0-4); Lymphocytes # 0.8 K/mcL (0.6-4.6); Lymphocytes % 8.3 %; Mean Corpuscular HGB Conc 31.3 g/dL (31.6-35.5); Mean Corpuscular Hemoglobin 27.2 pg (28.0-33.3); Mean Corpuscular Volume 86.7 fL (83.0-100.0); Mean Platelet Volume 11.2 fL (9.4-12.4); Monocytes # 0.6 K/mcL (0.0-1.3); Monocytes % 6.3 %; Neutrophils # 7.4 K/mcL (1.6-8.9); Platelet Count 247 K/mcL (140-400); Red Blood Count 3.09 M/mcL (4.19-5.50); Red Cell Distribution Width 17.3 % (11.5-14.5)
[2019-02-22] MEDS ORDERED: Cefepime HCl 2,000 MG in Water for inj. (sterile) 20 ML IVP STA (10:43)
[2019-02-22] MEDS ORDERED: Vancomycin (wt based) 1,000 MG VIAL IVPB STA (10:43)
[2019-02-22] MEDS ORDERED: levoFLOXacin 750 MG/150 ML 750 MG/150 ML BAG IVPB STA (10:43)
[2019-02-22 10:45] LABS: Calcium 8.4 mg/dL (8.6-10.3); Potassium 4.7 mEq/L (3.5-5.1)
[2019-02-22] MEDS ORDERED: 0.9 % Sodium Chloride 1,000 ML IVC ONE (10:45)
[2019-02-22] MEDS ORDERED: methylPREDNISolone 125 MG/2 ML VIAL IVP STA (11:04)
[2019-02-22] MEDS ORDERED: Albuterol 2.5 MG/3 ML NEBULIZER IH ONE (12:34)
[2019-02-22] MEDS ORDERED: *HR* LORazepam 2 MG/ML VIAL IVP ONE (12:50)
[2019-02-22 13:07] LABS: ABG Base Excess -5 mEq/L (-2 to 3); ABG HCO3 21 mEq/L (21-27); ABG Oxygen Saturation 68 % (95-98); ABG PCO2 39 mmHg (35-45); ABG PH 7.33 pH Units (7.32-7.45); ABG PO2 38 mmHg (85-104); ABG TCO2 22 mEq/L (20-26)
[2019-02-22 13:22] LABS: ABG Base Excess -5 mEq/L (-2 to 3); ABG HCO3 20 mEq/L (21-27); ABG Oxygen Saturation 92 % (95-98); ABG PCO2 35 mmHg (35-45); ABG PH 7.36 pH Units (7.32-7.45); ABG PO2 64 mmHg (85-104); ABG TCO2 21 mEq/L (20-26)
[2019-02-22] MEDS ORDERED: Nitroglycerin 0.4 MG TAB.SUBL SL PRN ×2 (13:44→16:18)
--- NOTE | 2019-02-22 13:51 | Electrocardiograph Report ---
[employer] Test Date: 2019-02-22 Pat Name: Noe Newsome Department: [id number] Room: 2A63 [facility]: [facility] Consultant: : [id number] Requested By: Tone Perez Order Number: [id number] Reading MD: Ac Howe Measurements Intervals [place] Rate: 70 P: 0 MT: 292 QRS: 6 QRSD: 113 T: 159 QT: 439 QTc: 474 Interpretive Statements Sinus rhythm Prolonged MT interval Borderline intraventricular conduction delay Nonspecific T abnormalities, lateral leads Electronically Signed On 02-22-2019 13:49:52 EDT by Ac Howe
[2019-02-22] MEDS ORDERED: Fluticasone Propionate Nasal 50 MCG/SPRAY BOTTLE NS PRN (16:18)
[2019-02-22] MEDS ORDERED: Albuterol 2.5 MG/3 ML NEBULIZER IH PRN (16:18)
[2019-02-22] MEDS ORDERED: EPINEPHrine 1 MG/ML VIAL IM PRN (16:18)
--- NOTE | 2019-02-22 16:26 | Internal Med History&Physical ---
Date of Encounter: 02/22/19 Time of Encounter: 16:26 Internal Medicine - H&P: HPI History of present illness: Mr. Newsome is a 64 year old male with PMH of arthritis, asthma, atrial fibrillation, coronary artery disease, DVT, diabetes, GERD, hyperlipidemia, hypertension and myocardial infarction who was recently discharged from the hospital after being treated for asthma exacerbation that resulted in intubation and admission to the ICU. The patient presented with difficulty in breathing. He was evaluated by the ER staff and his imaging studies was suggestive of pneumonia. He was admitted to the hospital for further evaluation and management of hospital-acquired pneumonia and COPD exacerbation. The patient denies chest pain, orthopnea paroxysmal nocturnal dyspnea, progressive worsening lower extremity edema fever and chills. Past Med Surg Social Fam HX - Past Medical History Medical history: arthritis, asthma, atrial fibrillation, coronary artery disease, DVT, diabetes, GERD, hyperlipidemia, hypertension, myocardial infarction, other Additional medical history: BROCK w/ CPAP/2L o2. DJD Psychiatric history: anxiety - Past Surgical History Surgical History: appendectomy, cholecystectomy Additional surgical history: KNEE SURGERY , stent x1, right ankle ext. fixation. Bilateral CTR - Social History Smoking Status: Never smoker Smokeless Tobacco Status: No Alcohol use: none Drug use: none - Family History Mother Living Status: Hx Family Cardiac Disorders: Yes Hx Family Endocrine Disorder: Yes (DM) Father Living Status: Hx Family Cardiac Disorders: Yes (atersclerosis) Internal Medicine - H&P: Meds Albuterol Neb [Proventil Neb] 2.5 mg IH Q4HR PRN 09/01/18 [History] Aspirin [Lo-Dose Aspirin EC] 81 mg PO DAILY 09/01/18 [History] Atorvastatin [Lipitor] 40 mg PO DAILY 09/01/18 [History] Clopidogrel [Plavix] 75 mg PO DAILY 09/01/18 [History] EPINEPHrine [Epipen] 0.3 mg IM ONCE PRN 09/01/18 [History] Empagliflozin [Jardiance] 10 mg PO DAILY 09/01/18 [History] Fluticasone/Salmeterol [Advair Hfa 230-21 Mcg Inhaler] 2 puff IH BID 09/01/18 [History] Folic Acid 1 mg PO DAILY 09/01/18 [History] GlipiZIDE XL (24 HR) [Glucotrol XL] 5 mg PO 0800 09/01/18 [History] LORazepam [Ativan] 0.5 mg PO BID 09/01/18 [History] Montelukast [Singulair] 10 mg PO HS 09/01/18 [History] Nitroglycerin [Nitrostat] 0.4 mg SL Q5MIN PRN MDD MAX 3 DOSE/24HOURS 09/01/18 [History] Salmon-3 Fatty Acids/Fish Oil [Eql Salmon-3 Fish Oil 1,000 mg] 1 cap PO DAILY 09/01/18 [History] Pantoprazole Sodium [Protonix] 20 mg PO DAILY 09/01/18 [History] Tiotropium [Spiriva] 18 mcg IH DAILY 09/01/18 [History] Albuterol Sulfate [Ventolin Hfa] 2 puff IH Q4H PRN 10/14/18 [History] Amlodipine Besylate 10 mg PO DAILY 10/14/18 [History] Fluticasone Propionate Nasal [Flonase] 2 spr NS DAILY PRN 10/14/18 [History] Isosorbide MONOnitrate [Isosorbide Mononitrate ER] 30 mg PO DAILY 10/14/18 [History] Magnesium Oxide [Magnesium] 400 mg PO DAILY 10/14/18 [History] Metoprolol Succinate 50 mg PO DAILY 10/14/18 [History] Pramlintide Acetate [Symlinpen 120] 120 mcg SQ TID 10/14/18 [History] Docusate [Colace] 100 mg PO BID PRN 10/27/18 [History] FLUoxetine HCl [Prozac] 80 mg PO DAILY 10/27/18 [History] Ferrous Sulfate [Iron] 325 mg PO DAILY 10/27/18 [History] Multivit-Min/Iron/Folic Acid/K [Adults Multivitamin Tablet] 1 each PO DAILY 10/27/18 [History] Tamsulosin HCl [Flomax] 0.4 mg PO DAILY 10/28/18 [History] Furosemide [Lasix] 40 mg PO BID 11/30/18 [History] Loratadine [Allergy Relief] 10 mg PO DAILY 11/30/18 [History] Catheter [Clean-Cath] 1 each MC TID PRN #30 each 12/22/18 [Rx] Omalizumab [XOLAIR (For Outpatient Infusion)] 150 mg SQ Q2W 02/22/19 [History] OxyCODONE/APAP 10/325 [Percocet 10/325 MG] 1 tab PO Q4HR PRN 02/22/19 [History] Gabapentin 800 mg PO QID 02/23/19 [History] predniSONE [PredniSONE] 30 mg PO BID 02/23/19 [History] Allergy/AdvReac Type Severity Reaction Status Date / Time dapagliflozin [From [facility]] Allergy Hives Verified 10/28/18 13:46 naphazoline Allergy Hives Verified 10/28/18 13:46 cath DYE Allergy Hives Uncoded 10/28/18 13:46 All Systems PM: A 10-system review of systems was performed and is negative for pertinent findings except as documented above in the HPI. - Constitutional Vitals: Temp Pulse Resp BP Pulse Ox 97.7 F 75 16 132/62 91 02/22/19 15:00 02/22/19 15:00 02/22/19 15:00 02/22/19 15:00 02/22/19 15:00 General appearance: Present: A&O X 3 Exam: ` - Neck Neck exam general surgery: Present: supple, trachea midline. Absent: lymphadenopathy - Respiratory Respiratory exam: Present: rhonchi. Absent: accessory muscle use, rales, wheezes - Cardiovascular Cardiovascular exam: Present: RRR, +S1, +S2. Absent: diastolic murmur, gallop, rubs, systolic murmur - GI/Abdominal GI/Abdominal exam: Present: normal bowel sounds, soft, no peritoneal signs. Absent: distended, tenderness - Extremities Exam Extremities exam: Present: warm, radial pulses palpable and symmetrical. Absent: calf tenderness, cyanotic, pedal edema Internal Med - H&P Results - Labs CBC & Chem 7: 03/02/19 04:53 03/02/19 04:53 Labs: Short CBC 02/22/19 Range/Units 10:13 WBC 9.0 (4.3-11.1) K/mcL Hgb 8.4 L (12.9-16.9) g/dL Hct 26.8 L (37.5-50.1) % Plt Count 247 (140-400) K/mcL Neutrophils # 7.4 (1.6-8.9) K/mcL BMP 02/22/19 10:13 Sodium 125 L Potassium 4.7 Chloride 93 L Carbon Dioxide 22 L BUN 25 H Creatinine 2.12 H Glucose 122 H Calcium 8.4 L Cardiac Enzymes 02/22/19 Range/Units 10:13 Troponin I < 0.03 (< 0.04) ng/mL - ABG Interpretation ABG results: 02/22/19 02/22/19 13:04 13:18 ABG pH 7.33 7.36 ABG pCO2 39 35 ABG pO2 38 L* 64 L ABG HCO3 21 20 L ABG Total CO2 22 21 ABG O2 Saturation 68 L 92 L ABG Base Excess -5 L -5 L - Impressions ITS Impressions Chest X-Ray 02/22/19 09:38 IMPRESSION: Bilateral airspace opacities, increased since prior examination, likely representing multifocal pneumonia or pulmonary edema. Probable small bilateral pleural effusions. D/ / Joceline Campoverde MD / Joceline Campoverde MD Interpreting Provider: Joceline Campoverde MD - Assessment and Plan (1) Hospital-acquired pneumonia Current Visit: Yes Status: Suspected Assessment and plan: The patient was admitted to the hospital recently, images study is suggestive of multifocal pneumonia , he was admitted for further hydration and management of hospital-acquired pneumonia. She was started in empiric antibiotic, ulcer was obtained. (2) COPD exacerbation Current Visit: No Status: Resolved Assessment and plan: - SOB due to *COPD exacerbation caused by URTI PLAN: - Aerosols q 4 hr and PRN SOB - Solu-medrol 40 mg IV q 6 hr - O2 to keep SpO2 higher than 92% (SpO higher than 95% if CAD) - CBCD, BMP in AM - Sputum Gram stain, C+S - Tylenol 650 mg PO q 4-6 hr PRN pain/fever - Heparin 5000 U SQ BID (3) Chronic kidney disease Current Visit: No Status: Chronic Assessment and plan: The patient creatinine is at baseline, we will continue to monitor renal function, renal dosing of medication as better current EGFR, avoid nephrotoxic agents and strict I&O's Qualifiers: Chronic kidney disease stage: stage 4 (severe) Qualified Code(s): N18.4 - Chronic kidney disease, stage 4 (severe) (4) Charcot's joint, right ankle and foot Current Visit: No Status: Acute - Time Spent With Patient Total time spent is greater than 50% in coordination of care (as documented) at patient's floor/unit and/or counseling patient:
[2019-02-22] MEDS: Furosemide 40 MG TABLET PO SCH (17:35)
[2019-02-22] MEDS: Budesonide/Formoterol 160/4.5 1 PUFF INH IH SCH (20:05)
[2019-02-22] MEDS: *HR* LORazepam 0.5 MG TABLET PO SCH (20:38)
[2019-02-22] MEDS: Cefepime HCl 2,000 MG in Water for inj. (sterile) 20 ML IVP SCH (20:38)
[2019-02-22] MEDS: *HR* OxyCODONE/APAP 10/325 TABLET PO PRN (20:53)
[2019-02-22] MEDS ORDERED: PRAMLINTIDE ACETATE SQ SCH (21:00)
[2019-02-23] MEDS: Ipratropium/Albuterol Neb 3 ML IH SCH ×5 (00:03→21:52)
[2019-02-23] MEDS: MethylPREDNISolone 40 MG/ML VIAL IVP SCH ×4 (00:33→23:13)
[2019-02-23] MEDS: *HR* OxyCODONE/APAP 10/325 TABLET PO PRN ×2 (01:19→08:20)
[2019-02-23] MEDS ORDERED: *HR* GlipiZIDE XL (24 HR) 2.5 MG TABLET PO SCH (08:00)
[2019-02-23] MEDS ORDERED: Albuterol 2.5 MG/3 ML NEBULIZER IH PRN (08:05)
[2019-02-23] MEDS ORDERED: D5% in Water 1,000 ML IVC PRN (08:07)
[2019-02-23] MEDS ORDERED: *HR* Dextrose 50 % in Water (Syg) 50 ML SYRINGE IVP PRN (08:07)
[2019-02-23] MEDS ORDERED: Dextrose Gel 15 GM/37.5 ML TUBE PO PRN ×2 (08:07)
[2019-02-23] MEDS: Isosorbide MONOnitrate (24 HR) 30 MG TAB.ER.24H PO SCH (08:18)
[2019-02-23] MEDS: Metoprolol XL (24 HR) Succ 50 MG TAB.ER.24H PO SCH (08:18)
[2019-02-23] MEDS: Multivit/Ca/Min/Fe/FA 1 TAB TABLET PO SCH (08:18)
[2019-02-23] MEDS: Folic Acid 1 MG TABLET PO SCH (08:19)
[2019-02-23] MEDS: Loratadine 10 MG TABLET PO SCH (08:19)
[2019-02-23] MEDS: Aspirin Enteric Coated 81 MG Tablet PO SCH (08:19)
[2019-02-23] MEDS: *HR* LORazepam 0.5 MG TABLET PO SCH ×2 (08:19→20:27)
[2019-02-23] MEDS: Furosemide 40 MG TABLET PO SCH ×2 (08:19→16:53)
[2019-02-23] MEDS: Magnesium Oxide 400 MG TABLET PO SCH (08:19)
[2019-02-23] MEDS: amLODIPine 5 MG TABLET PO SCH (08:20)
[2019-02-23] MEDS: Cefepime HCl 2,000 MG in Water for inj. (sterile) 20 ML IVP SCH ×2 (08:20→20:28)
[2019-02-23] MEDS: FLUoxetine 20 MG CAPSULE PO SCH (08:20)
--- NOTE | 2019-02-23 08:47 | Internal Med Progress Note ---
<Kathy Huffman - Last Filed: 02/23/19 18:53> Hospitalist Progress Note - Encounter Date of Encounter: 02/23/19 - Exam Vitals: Temp Pulse Resp BP Pulse Ox 98.8 F 76 20 111/58 93 02/23/19 11:54 02/23/19 11:54 02/23/19 11:54 02/23/19 11:54 02/23/19 11:54 - Assessment and Plan (1) Charcot's joint, right ankle and foot Current Visit: No Status: Acute (2) Chronic kidney disease Current Visit: No Status: Chronic (3) COPD exacerbation Current Visit: No Status: Resolved (4) Hospital-acquired pneumonia Current Visit: Yes Status: Acute - Time Spent with Patient Total time spent is greater than 50% in coordination of care (as documented) at patient's floor/unit and/or counseling patient: Internal Medicine: Result - Labs CBC & Chem 7: 02/23/19 10:13 02/23/19 16:40 Labs: Short CBC 02/23/19 Range/Units 10:13 WBC 9.9 (4.3-11.1) K/mcL Hgb 8.1 L (12.9-16.9) g/dL Hct 25.3 L (37.5-50.1) % Plt Count 250 (140-400) K/mcL Neutrophils # 9.1 H (1.6-8.9) K/mcL BMP 02/23/19 02/23/19 09:15 11:07 Sodium 118 L* 112 L* Potassium 5.8 H Chloride 91 L Carbon Dioxide 18 L BUN 33 H Creatinine 2.41 H Glucose 175 H Calcium 8.0 L - ABG Interpretation ABG results: ABG ABG pH 7.36 pH Units (7.32-7.45) 02/22/19 13:18 ABG pCO2 35 mmHg (35-45) 02/22/19 13:18 ABG pO2 64 mmHg (85-104) L 02/22/19 13:18 ABG O2 Saturation 92 % (95-98) L 02/22/19 13:18 Consult Discharge Plan - Plan Referrals: Myron Henderson [Primary Care Provider] - - Attending Attestation I examined this patient and my medical decision-making was reviewed with the Resident Physician Dr Sanchez. I agree with the documented findings, disposition and treatment plan as described except to the extent set forth below. Mr Newsome has an extensive pmhx including but not limited to arthritis, chronci opiate use, asthma with recent admission and dc from [facility] 01/13, and admission for which he was treated for pna and intubated while cared for in the ICU, afib on BB but not on AC, CAD, DVT hx, DM on multi drug regimen, HTN, BROCK on cpap + 2L nc at home HS, anxiety on benzos, chronic anemia w bl hgb 7-9, CKD w bl creat 2.1 at best with referral for outpt nephro at last dc, and HFpEF. He is being observed for multifocal pna and acute on chronic resp failure I believe he warrants inpt status change for acute unresolved issue with new acute on chronic hyponatremia w Na level 112 requiring ICU transfer, hypertonic saline as he is at high risk for further renal decline and neurologic decline. awake, no family present. alert and oriented. He had requested his cpap be put on as his breathing is more comfortable with it. + wheezing and coughing and worse without it. orthopnea and pnd at his baseline. feels legs more swollen. denies fatigue, confusion. gen- alert, awake,appears stated age eyes- pupils equal round cv- reg rate and rhythm, normal s1,s2, trace pitting edema bl le lungs- diminished throughout, crackles bl bases, no rhonchi or wheezing, normal resp effort on cpap/5L abd- soft, non tender, non distended, neuro- AAOx3, CN grossly intact, strength equal and intact throughout Hospital Acquired Multifocal Pna, org unknown- cont vanc + cefepime + levquin, attempt to ID organism, check procal Acute on chronic HFpEF with elevated BNP and physical exam /CXR findings of overload- he was initially started on his home PO lasix by admitter, we now have nephro on board and will await further recs regarding diuresis as resp status is stable and suspect resp failure most impacted by multifocal pna Acute on Chronic hypoxic resp failure with increased O2 requirement- tx as above, cont IV steroids, if no improvement in next 24 hrs will get non contrast CT chest, while PE is on differential given known multifocal pna and no current tachycardia or tachypnea it is much less likely, dimer would be of no use and cannot CTA chest given renal function or VQ scan with known pulm disease and active pna, if fails to improve in next 24-48hrs with tx will consider further testing at that time w risk v benefit taken into account Acute on Chronic Severe Hyponatremia, Na level 125 on admit, confirmed 110s today (118, 112)- I have disucssed case with Dr Varela who will see him in consult, she is suspecting he will need hypertonic saline infusion and he is being transferred to ICU, at this time his mentation is at baseline, freq neuro checks ordered, serial Dejon will be as per nephro recs, awaiting addl recs from nephro CKD stage unknown, appears he is at baseline Hyperkalemia- ca gluconate and kayexalate given Low Bicarb -all have been discussed with nephro and appreciate recs further diagnose and plan as noted by resident pt, RN and bedmanagement all updated to ICU transfer. Pt will contact his to update as she did not answer calls from hospital number. UPDATE TO ABOVE prior to starting hypertonic saline CVC was placed for access after discussion with nephro, ICU team placed and greatly appreciate assistance. Na level prior to initiation now 119. D/w dr Varela and will hold on hypertonic saline, beging NAcl 1g BID now and serial Dejon with night team to follow over night. to remain in ICU. CXR post CVC initaitlly noted can't rule out retained guide wire. CXR repeated and radiology reviewed prior imaging and linear density noted is chronic finding not new and ICU team noted absolutely no complications with placement of line and intact guide wire was visualized by multiple team members. No further concern given this is not a new finding on imaging. <Lefty Sanchez - Last Filed: 02/23/19 20:31> Hospitalist Progress Note - Encounter Date of Encounter: 02/23/19 Time of Encounter: 09:30 - Subjective Interval History: Patient states she feels worse than yesterday. When he is on the CPAP he feels okay but states he has "just as tight as ever ". - Exam Vitals: Temp Pulse Resp BP Pulse Ox 98.0 F 77 20 117/66 98 02/23/19 07:26 02/23/19 07:26 02/23/19 07:02/23/19 07:02/23/19 07:26 Exam: Gen.: Elderly male. No acute distress Skin: No obvious facial rash. Good turgor Eyes: Moist. Anicteric Neck: No appreciable JVD or hepatojugular reflux. Exam complicated by obesity Cardiac: Regular rate and rhythm. 3 out of 6 known systolic murmur best heard over the pulmonic valve Respiratory: Crackles worse in the upper [place]. Distant lung sounds at bases. Labored breathing GI: Soft. Nontender diffusely tender. Obese Extremities: Capillary refill less than 2 seconds upper extremities bilaterally. Right leg wrapped. Left leg edema with minimal pitting. Neuro: As able to focus. No tremors noticed Psych: Appropriate behavior. Answered questions coherently - Assessment and Plan (1) Acute and chronic respiratory failure with hypoxia Current Visit: Yes Status: Acute Assessment and Plan: -likely due to infectious pneumonia vs. heart failure with preserved ejection fraction -Hypoxic -Recent acute onset worsening dyspnea. Saturations no lower than 91%. Patient requiring intermittent CPAP to maintain non-dyspneic. -ABG 02/23/19: no significant metabolic derangements; A-a gradient: (using 2L NC FiO2 of 24% as estimation) elevated at 63.4. Repeat VBG 02/23/19 also shows hi gher than expected A-a gradient. -We will defer CTA at this point as disease process more likely explained by other etiology and risk/benefit correlation in the setting of ERICK on CKD. Plan: CPAP as needed with nasal cannula. DuoNeb's. Symbicort. Solu-Medrol every 8 hours. Consider CTA if no improvement with current therapy. (2) Acute on chronic diastolic (congestive) heart failure Current Visit: No Status: Suspected Assessment and Plan: -Consider 2/2 infectious process -Patient admits baseline orthopnea, PND, leg swelling. Recent increased dyspnea -Troponin negative -BNP 611 -TSH WNL; A1c 04/10/18 7.6 -CXR 02/23/19 shows stable cardiomegaly -Echo 01/05/19: Suboptimal. LVEF 55%. Indeterminant diastolic function. Grossly mildly dilated right ventricle with normal function. Mild aortic stenosis. Mild pulmonary hypertension Plan: Metoprolol succinate, aspirin, isosorbide mononitrate, atorvastatin. No DARSHAN inhibitor secondary to CKD. Nephrology consulted. Likely continue diuresis. (3) Hyponatremia Current Visit: No Status: Acute Assessment and Plan: -Acute on chronic -Searching for cause. Consider secondary to fluid overload state from heart failure with preserved ejection fraction. -125> 118> 112> 119 -Urine sodium 16.1, urine creatinine 33, urine osmolality low at 189. Will like ly need repeat of these values after saline therapy. Consider some component of SIADH or glucocorticoid deficiency. Plan: PICC placed. Likely hypertonic saline infusion with sodium checks every 2 hours. (4) Hyperkalemia Current Visit: Yes Status: Acute Assessment and Plan: -Consider secondary to ERICK on CKD versus hypoaldosteronism -4.7> 5.8> 5.4 -EKG 02/23/19: showed no peaked T waves. sinus rhythm. HR 70. no ST or T waves changes indicating ischemia. plan: Calcium gluconate, Kayexalate. (5) Sepsis Current Visit: No Status: Acute Assessment and Plan: -Possibly secondary to hospital-acquired pneumonia versus chronic wound of right lower extremity -SIRS 2 out of 4: temp stable, pulse 105 on arrival, rr 20 on arrival, WBC within normal limits -lactic acid within normal limits -blood cultures 02/22/19 x2 NTD and pending. -Pro calcitonin within normal limits -CXR 02/22/19: Read as likely multifocal pneumonia versus pulmonary edema Plan: Continue levofloxacin, vancomycin, cefepime. Await final results of blood culture (6) Acute kidney injury superimposed on CKD Current Visit: Yes Status: Acute Assessment and Plan: -CKD stage IV -Consider secondary to cardiorenal syndrome -Creatinine 2.12> 2.49 Plan: No DARSHAN inhibitor. Consider diuresis. Nephrology consulted. (7) Pleural effusion Current Visit: No Status: Suspected Assessment and Plan: -Suspected -As seen on CXR 02/22/19 -Continue to stabilize patient's respiratory status (8) Abscess of right foot Current Visit: No Status: Acute Assessment and Plan: -Continue to monitor as concern for sepsis (9) COPD (chronic obstructive pulmonary disease) Current Visit: No Status: Acute Assessment and Plan: -Medications for acute respiratory failure as above. Do not suspect over COPD exacerbation at this point as clinical picture points more towards heart f ailure. -Continue to monitor (10) Diabetes mellitus Current Visit: No Status: Chronic Assessment and Plan: -Glucose levels have been unremarkable -Continue to monitor on current regimen (11) Hypertension Current Visit: No Status: Chronic Assessment and Plan: -Chronic, stable -Continue to monitor (12) Atrial fibrillation Current Visit: No Status: Chronic Assessment and Plan: -Chronic -Metoprolol rate control has been adequate (13) Hospital-acquired pneumonia Current Visit: Yes Status: Acute Assessment and Plan: Plan as above - Time Spent with Patient Total time spent is greate Internal Medicine: Result - Labs CBC & Chem 7: 02/23/19 10:13 02/23/19 16:40 Labs: Short CBC 02/22/19 Range/Units 10:13 WBC 9.0 (4.3-11.1) K/mcL Hgb 8.4 L (12.9-16.9) g/dL Hct 26.8 L (37.5-50.1) % Plt Count 247 (140-400) K/mcL Neutrophils # 7.4 (1.6-8.9) K/mcL BMP 02/22/19 10:13 Sodium 125 L Potassium 4.7 Chloride 93 L Carbon Dioxide 22 L BUN 25 H Creatinine 2.12 H Glucose 122 H Calcium 8.4 L Cardiac Enzymes 02/22/19 Range/Units 10:13 Troponin I < 0.03 (< 0.04) ng/mL - ABG Interpretation ABG results: ABG ABG pH 7.36 pH Units (7.32-7.45) 02/22/19 13:18 ABG pCO2 35 mmHg (35-45) 02/22/19 13:18 ABG pO2 64 mmHg (85-104) L 02/22/19 13:18 ABG O2 Saturation 92 % (95-98) L 02/22/19 13:18 - Impressions Impressions Chest X-Ray 02/22/19 09:38 IMPRESSION: Bilateral airspace opacities, increased since prior examination, likely representing multifocal pneumonia or pulmonary edema. Probable small bilateral pleural effusions. D/ / Joceline Campoverde MD / Joceline Campoverde MD Interpreting Provider: Joceline Campoverde MD <Kathy Huffman - Last Filed: 02/23/19 18:53> (2) Chronic kidney disease Qualifiers: Chronic kidney disease stage: stage 4 (severe) Qualified Code(s): N18.4 - Chronic kidney disease, stage 4 (severe) <Lefty Sanchez G - Last Filed: 02/23/19 20:31> (9) COPD (chronic obstructive pulmonary disease) Qualifiers: COPD type: unspecified COPD Qualified Code(s): J44.9 - Chronic obstructive pulmonary disease, unspecified (10) Diabetes mellitus Qualifiers: Diabetes mellitus type: type 2 Diabetes mellitus residential insulin use: with terminal supervisor use Diabetes mellitus complication status: with neurologic complications Diabetes mellitus complication detail: with polyneuropathy Qualified Code(s): E11.42 - Type 2 diabetes mellitus with diabetic polyneuropathy; Z79.4 - FPC (current) use of insulin (11) Hypertension Qualifiers: Hypertension type: essential hypertension Qualified Code(s): I10 - Essential (primary) hypertension (12) Atrial fibrillation Qualifiers: Atrial fibrillation type: chronic Qualified Code(s): I48.2 - Chronic atrial fibrillation
[2019-02-23] MEDS ORDERED: FISH OIL PO SCH (09:00)
[2019-02-23] MEDS ORDERED: FATTY ACIDS PO SCH (09:00)
[2019-02-23] MEDS ORDERED: Tiotropium 18 MCG inhalation IH SCH (09:00)
[2019-02-23] MEDS ORDERED: levoFLOXacin 500 MG/100 ML 500 MG/100 ML BAG IVPB SCH (09:00)
[2019-02-23] MEDS ORDERED: Empagliflozin [Jardiance] 10 MG PO SCH (09:00)
[2019-02-23] MEDS ORDERED: OMEGA PO SCH (09:00)
[2019-02-23] MEDS ORDERED: Ipratropium Neb 0.5 MG NEBULIZER IH PRN (09:02)
[2019-02-23] MEDS ORDERED: *HR* OxyCODONE/APAP 10/325 TABLET PO PRN (09:02)
[2019-02-23 09:28] LABS: VBG HCO3 18 mEq/L (21-27); VBG PCO2 28 mmHg (41-51); VBG PH 7.42 pH Units (7.32-7.42); VBG PO2 131 mmHg (25-50)
[2019-02-23 09:53] LABS: Potassium 5.8 mEq/L (3.5-5.1)
[2019-02-23] MEDS: Budesonide/Formoterol 160/4.5 1 PUFF INH IH SCH ×2 (09:59→21:52)
[2019-02-23] MEDS ORDERED: Calcium Gluconate 2,000 MG in 0.9 % Sodium Chloride 100 ML IVPB ONE (10:22)
[2019-02-23 10:36] LABS: Basophils % 0.1 %; Hematocrit 25.3 % (37.5-50.1); Hemoglobin 8.1 g/dL (12.9-16.9); Immature Granulocytes % 1.4 % (0-4); Lymphocytes # 0.4 K/mcL (0.6-4.6); Lymphocytes % 4.1 %; Mean Corpuscular Hemoglobin 27.5 pg (28.0-33.3); Mean Corpuscular Volume 85.8 fL (83.0-100.0); Mean Platelet Volume 11.7 fL (9.4-12.4); Monocytes # 0.2 K/mcL (0.0-1.3); Monocytes % 2.4 %; Neutrophils # 9.1 K/mcL (1.6-8.9); Platelet Count 250 K/mcL (140-400); Red Blood Count 2.95 M/mcL (4.19-5.50); Red Cell Distribution Width 17.6 % (11.5-14.5); White Blood Count 9.9 K/mcL (4.3-11.1)
[2019-02-23 11:28] LABS: Thyroid Stimulating Hormone 1.681 mcIU/mL (0.340-5.600)
[2019-02-23] MEDS ORDERED: PRAMLINTIDE ACETATE SQ SCH (12:00)
[2019-02-23] MEDS: Calcium Gluconate 1gm/50mL 1 GM/50 ML BAG IVPB SCH ×2 (12:16→12:48)
[2019-02-23] MEDS: Insulin LISPRO 300 UNITS/3 ML VIAL SQ SCH ×2 (12:17→16:57)
[2019-02-23] MEDS: *HR* Heparin 5,000 UNIT/ML VIAL SQ SCH ×2 (12:33→20:29)
[2019-02-23] MEDS ORDERED: Lidocaine -MPF 1% 5 ML AMPUL INFILT ONE (13:41)
[2019-02-23] MEDS ORDERED: MethylPREDNISolone 40 MG/ML VIAL IVP SCH (14:20)
[2019-02-23 14:29] LABS: Sodium, Urine 16.1 mEq/L
--- NOTE | 2019-02-23 14:39 | Pulmonology Consult Note ---
Date of Encounter: 02/23/19 Time of Encounter: 14:38 Past Med Surg Social Fam HX - Past Medical History Medical history: arthritis, asthma, atrial fibrillation, coronary artery disease, DVT, diabetes, GERD, hyperlipidemia, hypertension, myocardial infarction, other Additional medical history: BROCK w/ CPAP/2L o2. DJD Psychiatric history: anxiety - Past Surgical History Surgical History: appendectomy, cholecystectomy Additional surgical history: KNEE SURGERY , stent x1, right ankle ext. fixation. Bilateral CTR - Social History Smoking Status: Never smoker Smokeless Tobacco Status: No Alcohol use: none Drug use: none - Family History Mother Living Status: Hx Family Cardiac Disorders: Yes Hx Family Endocrine Disorder: Yes (DM) Father Living Status: Hx Family Cardiac Disorders: Yes (atersclerosis) Medications and Allergies Albuterol Neb [Proventil Neb] 2.5 mg IH Q4HR PRN 09/01/18 [History] Aspirin [Lo-Dose Aspirin EC] 81 mg PO DAILY 09/01/18 [History] Atorvastatin [Lipitor] 40 mg PO DAILY 09/01/18 [History] Clopidogrel [Plavix] 75 mg PO DAILY 09/01/18 [History] EPINEPHrine [Epipen] 0.3 mg IM ONCE PRN 09/01/18 [History] Empagliflozin [Jardiance] 10 mg PO DAILY 09/01/18 [History] Fluticasone/Salmeterol [Advair Hfa 230-21 Mcg Inhaler] 2 puff IH BID 09/01/18 [History] Folic Acid 1 mg PO DAILY 09/01/18 [History] GlipiZIDE XL (24 HR) [Glucotrol XL] 5 mg PO 0800 09/01/18 [History] LORazepam [Ativan] 0.5 mg PO BID 09/01/18 [History] Montelukast [Singulair] 10 mg PO HS 09/01/18 [History] Nitroglycerin [Nitrostat] 0.4 mg SL Q5MIN PRN MDD MAX 3 DOSE/24HOURS 09/01/18 [History] [place]-3 Fatty Acids/Fish Oil [Eql [place]-3 Fish Oil 1,000 mg] 1 cap PO DAILY 09/01/18 [History] Pantoprazole Sodium [Protonix] 20 mg PO DAILY 09/01/18 [History] Tiotropium [Spiriva] 18 mcg IH DAILY 09/01/18 [History] Albuterol Sulfate [Ventolin Hfa] 2 puff IH Q4H PRN 10/14/18 [History] Amlodipine Besylate 10 mg PO DAILY 10/14/18 [History] Fluticasone Propionate Nasal [Flonase] 2 spr NS DAILY PRN 10/14/18 [History] Isosorbide MONOnitrate [Isosorbide Mononitrate ER] 30 mg PO DAILY 10/14/18 [History] Magnesium Oxide [Magnesium] 400 mg PO DAILY 10/14/18 [History] Metoprolol Succinate 50 mg PO DAILY 10/14/18 [History] Pramlintide Acetate [Symlinpen 120] 120 mcg SQ TID 10/14/18 [History] Docusate [Colace] 100 mg PO BID PRN 10/27/18 [History] FLUoxetine HCl [Prozac] 80 mg PO DAILY 10/27/18 [History] Ferrous Sulfate [Iron] 325 mg PO DAILY 10/27/18 [History] Multivit-Min/Iron/Folic Acid/K [Adults Multivitamin Tablet] 1 each PO DAILY 10/27/18 [History] Tamsulosin HCl [Flomax] 0.4 mg PO DAILY 10/28/18 [History] Furosemide [Lasix] 40 mg PO BID 11/30/18 [History] Loratadine [Allergy Relief] 10 mg PO DAILY 11/30/18 [History] Catheter [Clean-Cath] 1 each MC TID PRN #30 each 12/22/18 [Rx] Omalizumab [XOLAIR (For Outpatient Infusion)] 150 mg SQ Q2W 02/22/19 [History] OxyCODONE/APAP 10/325 [Percocet 10/325 MG] 1 tab PO Q4HR PRN 02/22/19 [History] Allergy/AdvReac Type Severity Reaction Status Date / Time dapagliflozin [From [facility]] Allergy Hives Verified 10/28/18 13:46 naphazoline Allergy Hives Verified 10/28/18 13:46 cath DYE Allergy Hives Uncoded 10/28/18 13:46 All Systems: The remainder of the systems were reviewed and are negative Physical Examination Vital Signs: Vital Signs, Last 4 Hours Temp Pulse Resp BP Pulse Ox 02/23/19 11:54 98.8 F 76 20 111/58 93 Results - Laboratory Findings CBC and BMP: 02/23/19 10:13 02/23/19 11:07 ABG ABG pH 7.36 pH Units (7.32-7.45) 02/22/19 13:18 ABG pCO2 35 mmHg (35-45) 02/22/19 13:18 ABG pO2 64 mmHg (85-104) L 02/22/19 13:18 ABG O2 Saturation 92 % (95-98) L 02/22/19 13:18 Abnormal lab findings: Abnormal lab results RBC 2.95 M/mcL (4.19-5.50) L 02/23/19 10:13 Hgb 8.1 g/dL (12.9-16.9) L 02/23/19 10:13 Hct 25.3 % (37.5-50.1) L 02/23/19 10:13 MCH 27.5 pg (28.0-33.3) L 02/23/19 10:13 MCHC 31.3 g/dL (31.6-35.5) L 02/22/19 10:13 RDW 17.6 % (11.5-14.5) H 02/23/19 10:13 Neutrophils # 9.1 K/mcL (1.6-8.9) H 02/23/19 10:13 Lymphocytes # 0.4 K/mcL (0.6-4.6) L 02/23/19 10:13 ABG pO2 64 mmHg (85-104) L 02/22/19 13:18 ABG HCO3 20 mEq/L (21-27) L 02/22/19 13:18 ABG O2 Saturation 92 % (95-98) L 02/22/19 13:18 ABG Base Excess -5 mEq/L (-2 to 3) L 02/22/19 13:18 VBG pCO2 28 mmHg (41-51) L 02/23/19 09:26 VBG pO2 131 mmHg (25-50) H 02/23/19 09:26 VBG HCO3 18 mEq/L (21-27) L 02/23/19 09:26 Sodium 112 mEq/L (136-145) L* 02/23/19 11:07 Potassium 5.8 mEq/L (3.5-5.1) H 02/23/19 09:15 Chloride 91 mEq/L (98-107) L 02/23/19 09:15 Carbon Dioxide 18 mEq/L (23-29) L 02/23/19 09:15 BUN 33 mg/dL (8-23) H 02/23/19 09:15 Creatinine 2.41 mg/dL (0.70-1.30) H 02/23/19 09:15 Est GFR ( Amer) 33 (> 60) L 02/23/19 09:15 Est GFR (Non-Af Amer) 27 (> 60) L 02/23/19 09:15 Glucose 175 mg/dL (70-105) H 02/23/19 09:15 POC Glucose 184 mg/dL (70-99) H 02/23/19 07:24 Serum Osmolality 275 mOsm/kg (280-300) L 02/23/19 11:07 Calculated Osmolality 258 (280-300) L 02/23/19 09:15 Calcium 8.0 mg/dL (8.6-10.3) L 02/23/19 09:15 B-Natriuretic Peptide 633 pg/mL (Less than 100) H 02/22/19 10:13 Urine Osmolality 189 mOsm/kg (300-1090) L 02/23/19 12:42 - Microbiology Findings Microbiology Findings: Microbiology, Last 48 Hours 02/22/19 10:54 Blood Culture - Preliminary Peripheral Venipuncture Culture is incubating and being continuously monitored for growth. Final report to follow. 02/22/19 10:54 Blood Culture - Preliminary Peripheral Venipuncture Culture is incubating and being continuously monitored for growth. Final report to follow. - Clinical Findings Intake & Output: Intake & Output 02/22/19 02/23/19 02/23/19 23:59 07:59 15:59 Intake Total 650 / 650 Output Total 560 / 760 200 / 760 Balance -560 / -110 450 / -110 Weight 128 kg Consult Discharge Plan - Plan Referrals: Myron Henderson [Primary Care Provider] -
--- NOTE | 2019-02-23 15:09 | Event Note ---
Date of Encounter: 02/23/19 Time of Encounter: 15:00 Pt now in ICU. IV access is an issue. Awaiting call back from fire management technician to confirm if she is agreeable to PICC line vs CVC being placed. If required CVC I have discussed with ICU resident Abad whom is available to place line with an attending line installation supervisor. No nephro recs yet in place but will begin treatment as soon as updated by nephro. He remains alert and oriented speaking with ICU staff. No pulm crit consult required at this tme given his respiratory stability. If fails to improve or decomps from a resp status would consider pulm consult at that time.
--- NOTE | 2019-02-23 15:45 | Nephrology Consult Note ---
Date of Encounter: 02/23/19 Time of Encounter: 13:00 Assessment and Plan (1) Hyponatremia Current Visit: No Status: Resolved Acute hyponatremia, minimally symptomatic in the setting of COPD,PNA Agree with moving to the ICU for close monitoring, for hypertonic saline Will check urine sodium, osmolality Will check TSH, cortisol, serum osmolality and uric acid (2) Hyperkalemia Current Visit: Yes Status: Resolved s/p kayexalate. Renal diet advised (3) Hospital-acquired pneumonia Current Visit: Yes Status: Suspected Continue abx per primary but must dose vanco renally and monitor levels daily (4) ERICK (acute kidney injury) Current Visit: No Status: Acute SCr slightly worse at 2.41 but baseline unclear at this point Avoid nephrotoxins if possible History of Present Illness - Reason for Consult Consult date: 02/23/19 Acute Kidney Injury, hyponatremia Requesting physician: Kathy Huffman - History of Present Illness 64 year old male with PMH of arthritis, asthma, atrial fibrillation, coronary artery disease, DVT, diabetes, GERD, hyperlipidemia, hypertension and myocardial infarction who was recently discharged from the hospital after being treated for asthma exacerbation that resulted in intubation and admission to the ICU presenting with SO)B yesterday. Renal consulted for worsening sodium at 112 from 125 on admission, potassium at 5.8 and SCr at 2.4, GFR 27 which is about baseline. Pt seen and examined reports SOB at baseline and denies any other complaints. Pt was receiving calcium gluconate and kayexalate at the time of this eval, awaiting transfer to the ICU Past Med Surg Social Fam HX - Past Medical History Medical history: arthritis, asthma, atrial fibrillation, coronary artery disease, DVT, diabetes, GERD, hyperlipidemia, hypertension, myocardial infarction, other Additional medical history: BROCK w/ CPAP/2L o2. DJD Psychiatric history: anxiety - Past Surgical History Surgical History: appendectomy, cholecystectomy Additional surgical history: KNEE SURGERY , stent x1, right ankle ext. fixation. Bilateral CTR - Social History Smoking Status: Never smoker Smokeless Tobacco Status: No Alcohol use: none Drug use: none - Family History Mother Living Status: Hx Family Cardiac Disorders: Yes Hx Family Endocrine Disorder: Yes (DM) Father Living Status: Hx Family Cardiac Disorders: Yes (atersclerosis) Medications and Allergies Albuterol Neb [Proventil Neb] 2.5 mg IH Q4HR PRN 09/01/18 [History] Aspirin [Lo-Dose Aspirin EC] 81 mg PO DAILY 09/01/18 [History] Atorvastatin [Lipitor] 40 mg PO DAILY 09/01/18 [History] Clopidogrel [Plavix] 75 mg PO DAILY 09/01/18 [History] EPINEPHrine [Epipen] 0.3 mg IM ONCE PRN 09/01/18 [History] Empagliflozin [Jardiance] 10 mg PO DAILY 09/01/18 [History] Fluticasone/Salmeterol [Advair Hfa 230-21 Mcg Inhaler] 2 puff IH BID 09/01/18 [History] Folic Acid 1 mg PO DAILY 09/01/18 [History] GlipiZIDE XL (24 HR) [Glucotrol XL] 5 mg PO 0800 09/01/18 [History] LORazepam [Ativan] 0.5 mg PO BID 09/01/18 [History] Montelukast [Singulair] 10 mg PO HS 09/01/18 [History] Nitroglycerin [Nitrostat] 0.4 mg SL Q5MIN PRN MDD MAX 3 DOSE/24HOURS 09/01/18 [History] [place]-3 Fatty Acids/Fish Oil [Eql [place]-3 Fish Oil 1,000 mg] 1 cap PO DAILY 09/01/18 [History] Pantoprazole Sodium [Protonix] 20 mg PO DAILY 09/01/18 [History] Tiotropium [Spiriva] 18 mcg IH DAILY 09/01/18 [History] Albuterol Sulfate [Ventolin Hfa] 2 puff IH Q4H PRN 10/14/18 [History] Amlodipine Besylate 10 mg PO DAILY 10/14/18 [History] Fluticasone Propionate Nasal [Flonase] 2 spr NS DAILY PRN 10/14/18 [History] Isosorbide MONOnitrate [Isosorbide Mononitrate ER] 30 mg PO DAILY 10/14/18 [History] Magnesium Oxide [Magnesium] 400 mg PO DAILY 10/14/18 [History] Metoprolol Succinate 50 mg PO DAILY 10/14/18 [History] Pramlintide Acetate [Symlinpen 120] 120 mcg SQ TID 10/14/18 [History] Docusate [Colace] 100 mg PO BID PRN 10/27/18 [History] FLUoxetine HCl [Prozac] 80 mg PO DAILY 10/27/18 [History] Ferrous Sulfate [Iron] 325 mg PO DAILY 10/27/18 [History] Multivit-Min/Iron/Folic Acid/K [Adults Multivitamin Tablet] 1 each PO DAILY 10/27/18 [History] Tamsulosin HCl [Flomax] 0.4 mg PO DAILY 10/28/18 [History] Furosemide [Lasix] 40 mg PO BID 11/30/18 [History] Loratadine [Allergy Relief] 10 mg PO DAILY 11/30/18 [History] Catheter [Clean-Cath] 1 each MC TID PRN #30 each 12/22/18 [Rx] Omalizumab [XOLAIR (For Outpatient Infusion)] 150 mg SQ Q2W 02/22/19 [History] OxyCODONE/APAP 10/325 [Percocet 10/325 MG] 1 tab PO Q4HR PRN 02/22/19 [History] Gabapentin 800 mg PO QID 02/23/19 [History] predniSONE [PredniSONE] 30 mg PO BID 02/23/19 [History] Allergy/AdvReac Type Severity Reaction Status Date / Time dapagliflozin [From [facility]] Allergy Hives Verified 10/28/18 13:46 naphazoline Allergy Hives Verified 10/28/18 13:46 cath DYE Allergy Hives Uncoded 10/28/18 13:46 Review of Systems All Systems review (narrative): the rest of the systems are negative Constitutional: fatigue (admits) Cardiovascular: chest pain (denies), leg edema (admits) Respiratory: dyspnea (admits) Exam - Vital Signs Vital signs: Initial Vital Signs Temp Pulse Resp BP Pulse Ox 97.4 F L 105 20 108/69 98 02/22/19 09:42 02/22/19 09:42 02/22/19 09:42 02/22/19 09:42 02/22/19 09:42 Vital Signs - Last 8 Hours Temp Pulse Resp BP Pulse Ox 02/23/19 15:13 12 95 02/23/19 14:55 74 12 116/61 96 02/23/19 11:54 98.8 F 76 20 111/58 93 02/23/19 10:05 25 96 Intake and Output 02/22/19 02/23/1902/23/19 23:59 07:59 15:59 Intake Total 650 / 650 Output Total 560 / 760 200 / 760 Balance -560 / -110 450 / -110 Intake: IV Fluids 50 / 50 Maxipime 2,000 MG In Water for inj. (sterile) 20 ML @ 300 mls/ hr IVP BID JIMMY Rx#:[id number] Calcium Gluconate 1gm/50mL 1 gm 50 / 50 In 50 ml @ 100 mls/hr IVPB Q30M [facility] Rx#:[id number] Oral 600 / 600 Output: Urine 560 / 760 200 / 760 Other: Meal Lunch Percent of Meal Consumed 10% Weight 128 kg Blood Glucose* 163 184 168 Patient Weight 02/23/19 23:59 Weight 128 kg - General Appearance General appearance: obese, chronically ill EENT: ATNC, mucous membranes moist Neck: no JVD, supple Additional Comments: decreased BS throughout bilat Cardiology: edema (trace nonpitting LE bilat, RLE with heavy dressing), normal S1, normal S2 Gastrointestinal: no tenderness, no guarding, obese Integumentary: warm and dry Neurologic: no focal deficit Musculoskeletal: no deformities Psychiatric: mood/affect appropriate, cooperative Results - Lab Results 03/04/19 04:00 03/04/19 04:00 Most recent lab results 02/23/19 02/23/19 09:15 12:42 Calcium 8.0 L Urine Creatinine 33 Urine Sodium 16.1 Consult Discharge Plan - Plan Referrals: Myron Henderson [Primary Care Provider] -
--- NOTE | 2019-02-23 16:24 | Procedure Note ---
<Tiffany Melgoza R - Last Filed: 02/23/19 16:29> Date of procedure: 02/23/19 Pre-op diagnosis: hyponatremia Post-op diagnosis: same Procedure: Central Venous Catheter Placement Date: 02/23/2019 Time: 1600 Indication: Hypertonic saline administration Resident: Dr. Julio Winston Attending: Dr. Alejandra A time-out was completed verifying correct patient, procedure, site, positioning, and special equipment if applicable. The patient was placed in a dependent position appropriate for central line placement based on the vein to be cannulated. The patients right neck was prepped and draped in sterile fashion. 1% Lidocaine was used to anesthetize the surrounding skin area. A triple lumen 9-[place] Cord[place] catheter was introduced into the the internal jugular using the Seldinger technique and under ultrasound guidance. The catheter was threaded smoothly over the guide wire and appropriate blood return was obtained. Each lumen of the catheter was evacuated of air and flushed with sterile saline. The catheter was then sutured in place to the skin and a sterile dressing applied. Perfusion to the extremity distal to the point of catheter insertion was checked and found to be adequate. Dr. Alejandra was present for the entire procedure. Estimated Blood Loss: 1mL The patient tolerated the procedure well and there were no complications. Stat portable CXR was obtained and the central line was in appropriate position without evidence of a pneumothorax per my interpretation. Anesthesia: local Was there an assistant media planner present: Yes Straightedge Man: Dilip Kim Estimated blood loss (cc): 1 Specimen: none Condition: critical Disposition: ICU <Nadira Alejandra M - Last Filed: 02/23/19 16:52> Procedure: I examined this patient and my medical decision-making was reviewed with the Resident Physician. I agree with the documented findings, disposition and treatment plan as described except to the extent set forth below. I have personally supervised residents place feeding left internal jugular central line placement without immediate complications.
[2019-02-23 17:21] LABS: Calcium 8.2 mg/dL (8.6-10.3); Potassium 5.4 mEq/L (3.5-5.1)
[2019-02-23] MEDS: Insulin DETEMIR 100 UNIT/ML X5UNITS SQ SCH (20:28)
[2019-02-23] MEDS ORDERED: Insulin LISPRO 300 UNITS/3 ML VIAL SQ SCH (21:00)
[2019-02-24] MEDS: Ipratropium/Albuterol Neb 3 ML IH SCH ×4 (03:25→22:05)
[2019-02-24 03:45] LABS: Basophils % 0.1 %; Hematocrit 24.7 % (37.5-50.1); Hemoglobin 7.9 g/dL (12.9-16.9); Immature Granulocytes % 0.8 % (0-4); Lymphocytes # 0.3 K/mcL (0.6-4.6); Lymphocytes % 2.6 %; Mean Corpuscular Hemoglobin 27.6 pg (28.0-33.3); Mean Corpuscular Volume 86.4 fL (83.0-100.0); Mean Platelet Volume 10.9 fL (9.4-12.4); Monocytes # 0.5 K/mcL (0.0-1.3); Monocytes % 3.8 %; Neutrophils # 11.6 K/mcL (1.6-8.9); Platelet Count 238 K/mcL (140-400); Red Blood Count 2.86 M/mcL (4.19-5.50); Red Cell Distribution Width 17.5 % (11.5-14.5); Segmented Neutrophils % 92.7 %; White Blood Count 12.5 K/mcL (4.3-11.1)
[2019-02-24 04:07] LABS: Calcium 8.2 mg/dL (8.6-10.3); Potassium 4.7 mEq/L (3.5-5.1)
[2019-02-24] MEDS: *HR* Heparin 5,000 UNIT/ML VIAL SQ SCH ×3 (06:06→21:09)
[2019-02-24] MEDS: Insulin LISPRO 300 UNITS/3 ML VIAL SQ SCH ×4 (07:58→21:03)
[2019-02-24] MEDS: Insulin DETEMIR 100 UNIT/ML X5UNITS SQ SCH (08:00)
--- NOTE | 2019-02-24 08:02 | Internal Med Progress Note ---
<Kathy Huffman - Last Filed: 02/24/19 14:48> Hospitalist Progress Note - Encounter Date of Encounter: 02/24/19 - Exam Vitals: Temp Pulse Resp BP Pulse Ox 97.4 F L 84 24 136/83 88 02/24/19 11:42 02/24/19 12:15 02/24/19 12:15 02/24/19 12:15 02/24/19 12:15 - Assessment and Plan (1) Charcot's joint, right ankle and foot Current Visit: No Status: Acute (2) Chronic kidney disease Current Visit: No Status: Chronic (3) COPD exacerbation Current Visit: No Status: Resolved (4) Hospital-acquired pneumonia Current Visit: Yes Status: Acute - Time Spent with Patient Total time spent is greater than 50% in coordination of care (as documented) at patient's floor/unit and/or counseling patient: Internal Medicine: Result - Labs CBC & Chem 7: 02/24/19 03:35 02/24/19 12:55 Labs: Short CBC 02/24/19 Range/Units 03:35 WBC 12.5 H (4.3-11.1) K/mcL Hgb 7.9 L (12.9-16.9) g/dL Hct 24.7 L (37.5-50.1) % Plt Count 238 (140-400) K/mcL Neutrophils # 11.6 H (1.6-8.9) K/mcL BMP 02/23/19 02/23/19 02/24/19 16:40 20:54 00:18 Sodium 119 L* 120 L* 121 L Potassium 5.4 H Chloride 89 L Carbon Dioxide 21 L BUN 36 H Creatinine 2.49 H Glucose 160 H Calcium 8.2 L 02/24/19 02/24/19 02/24/19 03:35 09:38 12:55 Sodium 120 L* 124 L 125 L Potassium 4.7 Chloride 92 L Carbon Dioxide 20 L BUN 41 H Creatinine 2.68 H Glucose 135 H Calcium 8.2 L - ABG Interpretation ABG results: ABG ABG pH 7.36 pH Units (7.32-7.45) 02/22/19 13:18 ABG pCO2 35 mmHg (35-45) 02/22/19 13:18 ABG pO2 64 mmHg (85-104) L 02/22/19 13:18 ABG O2 Saturation 92 % (95-98) L 02/22/19 13:18 PT/INR, D-dimer PT 13.5 Seconds (9.4-12.1) H 02/24/19 12:55 - Impressions Impressions Chest X-Ray 02/23/19 16:26 IMPRESSION: 1. Right jugular central venous line in place terminating in the SVC 2. Linear density projects in the right side of the heart which was not present on the previous exam. A foreign body such as a guidewire could give this appearance. Alternatively, this could represent something on or under the patient. A repeat chest radiograph is suggested 3. The findings were sent to the Radiology Results Communication Center at 4:45 pm on 02/23/2019to be communicated to a licensed caregiver. D/ / Charlie Davis MD / Charlie Davis MD Interpreting Provider: Charlie Davis MD Chest X-Ray 02/23/19 17:13 IMPRESSION: 1. Linear density in the right paraspinal region overlying the right heart border seen on the previous chest x-ray is unchanged. In retrospect, this was present on previous chest radiograph in December 2018. When correlating with the prior chest CT, this is found to represent a linear pleural calcification/calcified pleural plaque. 2. Pulmonary edema pattern persists without significant interval change. 3. Superimposed left upper lobe pneumonia cannot be excluded and continued radiographic follow-up is recommended. D/ / Crow Chaparro MD / Crow Chaparro MD Interpreting Provider: Crow Chaparro MD Consult Discharge Plan - Plan Referrals: Myron Henderson [Primary Care Provider] - - Attending Attestation I examined this patient and my medical decision-making was reviewed with the Resident Physician Dr Cordova. I agree with the documented findings, disposition and treatment plan as described except to the extent set forth below. Mr Newsome has an extensive pmhx including but not limited to arthritis, chronic opiate use, asthma with recent admission and dc from [facility] 01/13, and admission for which he was treated for pna and intubated while cared for in the ICU, afib on BB but not on AC, CAD, chronic chest pain with daily nitro use, DVT hx, DM on multi drug regimen, HTN, BROCK on cpap + 2L nc at home HS, anxiety on benzos, chronic anemia w bl hgb 7-9, CKD w bl creat 2.1 at best with referral for outpt nephro at last dc, and HFpEF. He is being observed for acute on chronic resp failure and acute on chronic hyponatremia awake, no family present. wearing cpap. no sob on it, feels more comfortable on cpap and feels like can't catch his breath always on O2 nc. denies fevers or chills. overall easy of breathing is improved today and he will trial O2NC today gen- alert, awake,appears stated age cv- reg rate and rhythm, normal s1,s2, trace pitting edema bl le lungs- improved anterior aeration, no rhonchi or wheezing, crackles bl bases, normal resp effort on cpap/5L abd- soft, non tender, non distended, neuro- AAOx3 Acute on Chronic hypoxic resp failure- suspect recurrent asthma exacerbation vs possible pna, cannot rule out PE -cpap/ O2 NC and wean as able, IV steroids, IV abx -cannot obtain CTA d/t CKD status, cannot obtain VQ d/t recent pna, current possible pna + chronic disease, did not check dimer as would be elevated in this setting regardless of if has PE -cont on current treatment, obtain CT chest non contrast, if fails to improve or if CT scan fails to show pna as CXR does or another clear etiology, would re visit PE work up at that time Possible Hospital Acquired Multifocal Pna, org unknown- cont vanc + cefepime + levquin, procal is negative, checking CT chest, if no definitive pna then would presume more likely asthma exacerbation vs other etiology and de escalate abx at that time Acute on chronic HFpEF- diuresis as per nephro, decrease to 40 mg PO daily today, fluid restriction Acute on Chronic Severe Hyponatremia,2/2 Polydipsia, resolving- appreciate nephro input, cont nacl tabs and serial manuel, correcting at appropriate rate ERICK on CKD stage unknown- decrease lasix as above, nephro following, renal dose meds CAD w chronic chest pain- 02/24 episode of worse than daily home chest pain, takes nitro at home for cp daily, pain improved with nitro--cont on asa + plavix + statin, trending trops, ekg without acute ischemic changes, if trop results as positive will get cards consult at that time, monitoring o2 sats and hgb to prevent demand ischemia in setting of known cad and chronic angina, CT chest as above <Hallie Cordova - Last Filed: 02/24/19 16:46> Hospitalist Progress Note - Encounter Date of Encounter: 02/24/19 Time of Encounter: 10:00 - Subjective Interval History: Patient seen and examined that bedside he was alert and oriented times 3 and no acute distress. He denied chest pain, fever, chills, shortness of breath. He complained about fluid restriction. Later during the day the patient was re-examined due to complaining of chest pain. Patient reported that he takes nitroglycerin about 3 times a day due to chronic chest pain. He reported a pressure and shortness of breath. Vitals were stable. 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 He was given nitroglycerin that improved his chest pain. EKG showed no acute ischemic changes. The patient was to be taken down for chest CT. - Exam Vitals: Temp Pulse Resp BP Pulse Ox 97.3 F L 80 10 125/72 94 02/24/19 07:40 02/24/19 06:00 02/24/19 06:00 02/24/19 06:00 02/24/19 06:00 Exam: Gen.: Vitals noted. No acute distress. AAOx3 HEENT: oropharynx clear, Normocephalic, atraumatic Cardiac: RRR, no murmur, +S1/S2 Pulmonary: CTA bilaterally, no wheezes, rales or rhonchi, equal chest expansion Abdomen: soft, nontender, Bowel sounds noted, no guarding Extremities: bilateral leg edema non-pitting, nontender calf, no cyanosis or clubbing Neuro: A&Ox3, moves all extremities, no focal deficits Psych: Appropriate mood and behavior - Assessment and Plan (1) Acute and chronic respiratory failure with hypoxia Current Visit: Yes Status: Acute Assessment and Plan: Patient presented with acute chronic respiratory failure with hypoxia. -Etiology is undetermined however may be secondary to pneumonia. Patient has a history of asthma which may be exacerbating this. PE is also in differential however given possible multifocal pneumonia in no tachycardia less likely. -SpO2 94% on CPAP. Patient uses CPAP at home. -Afebrile, hemodynamically stable -WBC 12.5, slightly increased however he is on steroids -02/22/2019 chest x-ray showing bilateral opacities increased from prior exam representing multifocal pneumonia or pulmonary edema. -The patient has been on CPAP. Plan -chest CT ordered. No evidence of multifocal pneumonia with and plan to de- escalate antibiotics as the etiology within most likely be asthma exacerbation. -continue vancomycin Day 3 -continue cefepime day 3 -continue Levaquin day 3 -continue IV Solu-Medrol but decreased to 40 Q12H -continue Symbicort scheduled -continue duonebs PRN (2) Hyponatremia Current Visit: Yes Status: Acute Assessment and Plan: Hypotonic hyponatremia. Sodium at lowest 112. -Etiology is likely noncompliance with fluid restriction. Patient drinks a lot of water. -Sodium 125 today -urine osmolality 189, urine creatinine 33, urine sodium 16 -patient is mentating appropriately Plan -nephrology following, appreciate recommendations. -Continue sodium tablets 1 g b.i.d. -continue fluid restriction diet -continue sodium checks Q4H (3) Hospital-acquired pneumonia Current Visit: Yes Status: Acute Assessment and Plan: Hospital acquired pneumonia as a patient has been hospitalized within 90 days. -02/22/2019 chest x-ray showing bilateral opacities increased from prior exam representing multifocal pneumonia or pulmonary edema. -Plan as above (4) Acute kidney injury superimposed on CKD Current Visit: Yes Status: Acute Assessment and Plan: Acute on chronic kidney disease stage 4 -Creatinine baseline 2.4 2.7 -creatinine 2.68, at baseline -poor urine output Plan -nephrology following, appreciate recommendations. Will decrease Lasix to once daily 40 mg -avoid nephrotoxic agents and renal dust medications -monitor serum creatinine and urine output (5) Asthma Current Visit: No Status: Chronic Assessment and Plan: Patient has known history of asthma. -Continue bronchodilators as above (6) CAD (coronary artery disease) Current Visit: No Status: Chronic Assessment and Plan: History of CAD taking aspirin and Plavix. Patient reports chronic daily chest pain for which he takes nitroglycerin 3 times a day. He follows with a produce team lead that is not at [place]. -He had an episode of chest pain today which felt similar to at home however slightly worsened. It was retrosternal with pain in his left arm. He described as a pressure. It was relieved with nitroglycerin. EKG is listed below. He likely has chronic angina, the troponin comes back as positive will consult cardiology. -02/24/2019 EKG showed NSR no ST or T wave changes indicating ischemia -troponin negative -Continue aspirin and Plavix -trend troponin with next repeat at 8 PM -continue telemetry -continue nitroglycerin PRN (7) Morbid obesity Current Visit: No Status: Chronic Assessment and Plan: Needs lifestyle changes. (8) Diabetes mellitus Current Visit: No Status: Chronic Assessment and Plan: History of diabetes -glucose controlled -continue Levemir 5 unit daily -continue low-dose sliding scale insulin -continue Accu check -continue diabetic diet (9) Charcot's joint, right ankle and foot Current Visit: No Status: Acute Assessment and Plan: Chronic. (10) DVT prophylaxis Current Visit: No Status: Acute Assessment and Plan: Heparin SQ - Time Spent with Patient Total time spent is greater than 50% in coordination of care (as documented) at patient's floor/unit and/or counseling patient: Internal Medicine: Result - Labs CBC & Chem 7: 02/24/19 03:35 02/24/19 12:55 Labs: Short CBC 02/23/19 02/24/19 Range/Units 10:13 03:35 WBC 9.9 12.5 H (4.3-11.1) K/mcL Hgb 8.1 L 7.9 L (12.9-16.9) g/dL Hct 25.3 L 24.7 L (37.5-50.1) % Plt Count 250 238 (140-400) K/mcL Neutrophils # 9.1 H 11.6 H (1.6-8.9) K/mcL BMP 02/23/19 02/23/19 02/23/19 09:15 11:07 16:40 Sodium 118 L* 112 L* 119 L* Potassium 5.8 H 5.4 H Chloride 91 L 89 L Carbon Dioxide 18 L 21 L BUN 33 H 36 H Creatinine 2.41 H 2.49 H Glucose 175 H 160 H Calcium 8.0 L 8.2 L 02/23/19 02/24/19 02/24/19 20:54 00:18 03:35 Sodium 120 L* 121 L 120 L* Potassium 4.7 Chloride 92 L Carbon Dioxide 20 L BUN 41 H Creatinine 2.68 H Glucose 135 H Calcium 8.2 L - ABG Interpretation ABG results: ABG ABG pH 7.36 pH Units (7.32-7.45) 02/22/19 13:18 ABG pCO2 35 mmHg (35-45) 02/22/19 13:18 ABG pO2 64 mmHg (85-104) L 02/22/19 13:18 ABG O2 Saturation 92 % (95-98) L 02/22/19 13:18 - Impressions Impressions Chest X-Ray 02/23/19 16:26 IMPRESSION: 1. Right jugular central venous line in place terminating in the SVC 2. Linear density projects in the right side of the heart which was not present on the previous exam. A foreign body such as a guidewire could give this appearance. Alternatively, this could represent something on or under the patient. A repeat chest radiograph is suggested 3. The findings were sent to the Radiology Results Communication Center at 4:45 pm on 02/23/2019to be communicated to a licensed caregiver. D/ / Charlie Davis MD / Charlie Davis MD Interpreting Provider: Charlie Davis MD Chest X-Ray 02/23/19 17:13 IMPRESSION: 1. Linear density in the right paraspinal region overlying the right heart border seen on the previous chest x-ray is unchanged. In retrospect, this was present on previous chest radiograph in December 2018. When correlating with the prior chest CT, this is found to represent a linear pleural calcification/calcified pleural plaque. 2. Pulmonary edema pattern persists without significant interval change. 3. Superimposed left upper lobe pneumonia cannot be excluded and continued radiographic follow-up is recommended. D/ / Crow Chaparro MD / Crow Chaparro MD Interpreting Provider: Crow Chaparro MD <Kathy Huffman - Last Filed: 02/24/19 14:48> (2) Chronic kidney disease Qualifiers: Chronic kidney disease stage: stage 4 (severe) Qualified Code(s): N18.4 - Chronic kidney disease, stage 4 (severe) <Hallie Cordova - Last Filed: 02/24/19 16:46> (5) Asthma Qualifiers: Asthma severity: severe Asthma persistence: unspecified Asthma complication type: uncomplicated Qualified Code(s): J45.909 - Unspecified asthma, uncomplicated (6) CAD (coronary artery disease) Qualifiers: Coronary Disease-Associated Artery/Lesion type: [place] artery [place] vs. transplanted heart: [place] heart Associated angina: without angina Qualified Code(s): I25.10 - Atherosclerotic heart disease of [place] coronary artery without angina pectoris (8) Diabetes mellitus Qualifiers: Diabetes mellitus type: type 2 Diabetes mellitus custodial insulin use: with continuous churn buttermaker use Diabetes mellitus complication status: with neurologic comp lications Diabetes mellitus complication detail: with polyneuropathy Qualified Code(s): E11.42 - Type 2 diabetes mellitus with diabetic polyneuropathy; Z79.4 - meterman (current) use of insulin
[2019-02-24] MEDS: Loratadine 10 MG TABLET PO SCH (08:14)
[2019-02-24] MEDS: amLODIPine 5 MG TABLET PO SCH (08:14)
[2019-02-24] MEDS: Folic Acid 1 MG TABLET PO SCH (08:15)
[2019-02-24] MEDS: Aspirin Enteric Coated 81 MG Tablet PO SCH (08:15)
[2019-02-24] MEDS: *HR* LORazepam 0.5 MG TABLET PO SCH ×2 (08:15→21:06)
[2019-02-24] MEDS: Metoprolol XL (24 HR) Succ 50 MG TAB.ER.24H PO SCH (08:15)
[2019-02-24] MEDS: Isosorbide MONOnitrate (24 HR) 30 MG TAB.ER.24H PO SCH (08:16)
[2019-02-24] MEDS: MethylPREDNISolone 40 MG/ML VIAL IVP SCH ×2 (08:16→20:58)
[2019-02-24] MEDS: Multivit/Ca/Min/Fe/FA 1 TAB TABLET PO SCH (08:16)
[2019-02-24] MEDS: Furosemide 40 MG TABLET PO SCH (08:16)
[2019-02-24] MEDS: Cefepime HCl 2,000 MG in Water for inj. (sterile) 20 ML IVP SCH ×2 (08:17→21:09)
[2019-02-24] MEDS: FLUoxetine 20 MG CAPSULE PO SCH (08:18)
[2019-02-24] MEDS: Magnesium Oxide 400 MG TABLET PO SCH (08:19)
[2019-02-24] MEDS ORDERED: LEVOFLOXACIN 750 MG/150 ML IVPB SCH (09:00)
[2019-02-24 10:15] LABS: Sodium 124 mEq/L (136-145); Vancomycin,Trough 21 mcg/mL (5-10)
[2019-02-24] MEDS ORDERED: Ipratropium Neb 0.5 MG NEBULIZER IH PRN (10:31)
[2019-02-24] MEDS ORDERED: Dextrose Gel 15 GM/37.5 ML TUBE PO PRN ×2 (10:31)
[2019-02-24] MEDS ORDERED: Fluticasone Propionate Nasal 50 MCG/SPRAY BOTTLE NS PRN (10:31)
[2019-02-24] MEDS: Budesonide/Formoterol 160/4.5 1 PUFF INH IH SCH ×2 (10:48→22:05)
--- NOTE | 2019-02-24 12:07 | Nephrology Progress Note ---
Date of Encounter: 02/24/19 Time of Encounter: 11:00 - Assessment and Plan (1) Hyponatremia Current Visit: No Status: Acute Sodium improved at 124 Urine osm consistent with polydipsia, appropriately low. continue fluid restriction, advised educated Continue salt tabs for now (2) Hyperkalemia Current Visit: Yes Status: Acute Resolved s/p kayexalate, now at 4.7 Continu renal diet (3) Hospital-acquired pneumonia Current Visit: Yes Status: Acute Continue abx per primary but must dose vanco renally Will hold vanco today with trough at 21 and monitor levels daily (4) ERICK (acute kidney injury) Current Visit: No Status: Acute SCr noted at 2.68, GFR 24 in the setting of sepsis, vanco and diuretics Will decrease lasix to 40mg daily as pt affrims persistent thirst Continue to avoid nephrotoxins if possible Subjective Interval history: Pt seen and examined in the ICU on cPAP feeling better. Hypertonic saline only ran for 30mins per nurse. Pt reports drinking 5liters a day of fluid typically Objective - Vital Signs Vital signs: Vital Signs Temp Pulse Resp BP Pulse Ox 02/24/19 11:42 97.4 F L 02/24/19 10:48 13 135/84 94 02/24/19 09:30 85 23 134/69 90 02/24/19 08:30 86 23 135/61 90 02/24/19 07:40 97.3 F L 02/24/19 07:20 81 22 129/85 94 02/24/19 06:00 80 10 125/72 94 02/24/19 05:00 81 12 133/74 94 02/24/19 04:00 97.6 F 81 15 141/82 95 02/24/19 03:45 79 02/24/19 03:17 11 95 02/24/19 03:00 78 14 130/84 96 02/24/19 02:00 77 12 137/80 95 02/24/19 01:00 76 12 130/87 95 02/24/19 00:00 97.6 F 77 14 128/90 96 02/23/19 23:00 79 17 126/70 94 02/23/19 22:00 76 15 126/66 95 02/23/19 21:54 19 125/71 94 02/23/19 21:00 76 14 125/71 94 02/23/19 20:30 76 02/23/19 20:00 74 13 123/76 95 02/23/19 19:00 96.9 F L 76 20 138/73 95 02/23/19 18:00 68 12 108/83 96 02/23/19 17:00 75 12 127/67 96 02/23/19 15:13 12 95 02/23/19 14:55 74 12 116/61 96 Intake and Output 02/23/19 02/24/19 02/24/19 23:59 07:59 15:59 Intake Total 50 / 950 560 / 560 Output Total 200 / 960 550 / 950 400 / 950 Balance -150 / -10 -550 / -390 160 / -390 Intake: IV Fluids 50 / 350 3% Sodium Chloride 500 ML @ 20 10 / 10 mls/hr IVC .Q24H JIMMY Rx#: [id number] Maxipime 2,000 MG In Water for 40 / 40 inj. (sterile) 20 ML @ 300 mls/ hr IVP BID JIMMY Rx#:[id number] Oral 560 / 560 Output: Urine 200 / 960 550 / 950 400 / 950 Other: Meal Breakfast Percent of Meal Consumed 100% Stool Size Moderate Stool Consistency liquid Stool Color Brown # Urine Diapers 1 # Bowel Movements 1 Weight 129 kg Blood Glucose* 146 170 167 Patient Weight 02/24/19 23:59 Weight 129 kg - General Appearance General appearance: Present: chronically ill EENT: Present: ATNC, mucous membranes moist Neck: Present: no JVD, supple Additional Comments: good areation ant bilat Cardiology: Present: edema (LE bilat, LLE with dressing), normal S1, normal S2 Gastrointestinal: Present: no tenderness, no guarding, obese Integumentary: Present: warm and dry Neurologic: Present: no focal deficit Musculoskeletal: Present: no deformities Psychiatric: Present: mood/affect appropriate, cooperative - Lab 02/24/19 03:35 02/24/19 09:38 Most recent lab results 02/24/19 03:35 Calcium 8.2 L Consult Discharge Plan - Plan Referrals: Myron Henderson [Primary Care Provider] -
[2019-02-24 13:19] LABS: INR 1.2; Prothrombin Time 13.5 Seconds (9.4-12.1)
[2019-02-24 13:21] LABS: Activated Partial Thrombo Time 31.2 Seconds (26.0-36.0)
[2019-02-24 13:29] LABS: Sodium 125 mEq/L (136-145)
[2019-02-24] MEDS: Nitroglycerin 0.4 MG TAB.SUBL SL PRN ×3 (14:30→14:45)
[2019-02-24 14:53] LABS: Troponin I < 0.03 ng/mL (< 0.04)
[2019-02-24] MEDS ORDERED: MethylPREDNISolone 40 MG/ML VIAL IVP SCH (16:00)
[2019-02-24] MEDS ORDERED: Furosemide 40 MG TABLET PO SCH (17:00)
[2019-02-24 17:12] LABS: Hematocrit 24.8 % (37.5-50.1)
[2019-02-24] MEDS ORDERED: Vancomycin 1 EACH in 0.9 % Sodium Chloride 250 ML IVPB PRN (17:15)
[2019-02-24] MEDS: *HR* OxyCODONE/APAP 10/325 TABLET PO PRN (23:05)
[2019-02-25 03:25] LABS: Basophils % 0.1 %; Hematocrit 25.6 % (37.5-50.1); Hemoglobin 8.1 g/dL (12.9-16.9); Immature Granulocytes % 0.8 % (0-4); Lymphocytes # 0.3 K/mcL (0.6-4.6); Lymphocytes % 1.4 %; Mean Corpuscular HGB Conc 31.6 g/dL (31.6-35.5); Mean Corpuscular Hemoglobin 27.6 pg (28.0-33.3); Mean Corpuscular Volume 87.1 fL (83.0-100.0); Mean Platelet Volume 12.1 fL (9.4-12.4); Monocytes # 1.5 K/mcL (0.0-1.3); Monocytes % 8.5 %; Neutrophils # 15.8 K/mcL (1.6-8.9); Platelet Count 252 K/mcL (140-400); Red Blood Count 2.94 M/mcL (4.19-5.50); Red Cell Distribution Width 17.7 % (11.5-14.5); Segmented Neutrophils % 89.2 %; White Blood Count 17.7 K/mcL (4.3-11.1)
[2019-02-25 03:43] LABS: BUN/Creatinine Ratio 17 (6-26); Blood Urea Nitrogen 49 mg/dL (8-23); Carbon Dioxide 19 mEq/L (23-29); Chloride 94 mEq/L (98-107); Glucose 194 mg/dL (70-105); Osmolality,Calculated 280 (280-300); Potassium 4.1 mEq/L (3.5-5.1); Sodium 126 mEq/L (136-145); Troponin I < 0.03 ng/mL (< 0.04); eGFR For African Americans 27 (> 60); eGFR For Non-African Americans 22 (> 60)
[2019-02-25] MEDS: Ipratropium/Albuterol Neb 3 ML IH SCH ×5 (03:45→23:40)
[2019-02-25] MEDS: *HR* Heparin 5,000 UNIT/ML VIAL SQ SCH ×3 (05:30→21:18)
[2019-02-25] MEDS: MethylPREDNISolone 40 MG/ML VIAL IVP SCH ×3 (05:31→23:32)
[2019-02-25] MEDS: Nitroglycerin 0.4 MG TAB.SUBL SL PRN ×3 (07:10→14:09)
[2019-02-25] MEDS ORDERED: *HR* Midazolam HCl 5 MG/5 ML VIAL IVP ONE ×2 (08:10→23:29)
[2019-02-25] MEDS ORDERED: *HR* Etomidate 20 MG/10 ML AMPUL IVP ONE (08:10)
[2019-02-25] MEDS: Insulin LISPRO 300 UNITS/3 ML VIAL SQ SCH ×4 (08:40→20:51)
[2019-02-25] MEDS: Insulin DETEMIR 100 UNIT/ML X5UNITS SQ SCH (08:41)
[2019-02-25] MEDS: Cefepime HCl 2,000 MG in Water for inj. (sterile) 20 ML IVP SCH ×2 (08:48→19:58)
[2019-02-25] MEDS ORDERED: levoFLOXacin 750 MG/150 ML 750 MG/150 ML BAG IVPB SCH (09:00)
--- NOTE | 2019-02-25 09:05 | Internal Med Progress Note ---
<Kathy Huffman - Last Filed: 02/25/19 12:36> Hospitalist Progress Note - Encounter Date of Encounter: 02/25/19 - Exam Vitals: Temp Pulse Resp BP Pulse Ox 98.7 F 78 21 118/69 89 02/25/19 10:58 02/25/19 10:58 02/25/19 10:58 02/25/19 10:58 02/25/19 10:58 - Assessment and Plan (1) Charcot's joint, right ankle and foot Current Visit: No Status: Acute (2) Chronic kidney disease Current Visit: No Status: Chronic (3) COPD exacerbation Current Visit: No Status: Resolved (4) Hospital-acquired pneumonia Current Visit: Yes Status: Suspected - Time Spent with Patient Total time spent is greater than 50% in coordination of care (as documented) at patient's floor/unit and/or counseling patient: Internal Medicine: Result - Labs CBC & Chem 7: 02/25/19 02:22 02/25/19 08:29 Labs: Short CBC 02/24/19 02/25/19 Range/Units 16:22 02:22 WBC 17.7 H (4.3-11.1) K/mcL Hgb 8.0 L 8.1 L (12.9-16.9) g/dL Hct 24.8 L 25.6 L (37.5-50.1) % Plt Count 252 (140-400) K/mcL Neutrophils # 15.8 H (1.6-8.9) K/mcL BMP 02/24/19 02/24/19 02/24/19 12:55 16:22 19:33 Sodium 125 L 125 L 124 L Potassium Chloride Carbon Dioxide BUN Creatinine Glucose Calcium 02/24/19 02/25/19 02/25/19 23:29 02:22 08:29 Sodium 126 L 126 L 126 L Potassium 4.1 Chloride 94 L Carbon Dioxide 19 L BUN 49 H Creatinine 2.87 H Glucose 194 H Calcium 8.0 L Cardiac Enzymes 02/24/19 02/24/19 02/25/19 Range/Units 12:55 19:33 02:22 Troponin I < 0.03 < 0.03 < 0.03 (< 0.04) ng/mL - ABG Interpretation ABG results: ABG ABG pH 7.39 pH Units (7.32-7.45) 02/25/19 09:33 ABG pCO2 32 mmHg (35-45) L 02/25/19 09:33 ABG pO2 71 mmHg (85-104) L 02/25/19 09:33 ABG O2 Saturation 94 % (95-98) L 02/25/19 09:33 PT/INR, D-dimer PT 13.5 Seconds (9.4-12.1) H 02/24/19 12:55 - Impressions Impressions Chest CT 02/24/19 13:44 IMPRESSION: Moderate right pleural effusion. Bilateral lung opacities are nonspecific but may be on the basis of pneumonia. Recommend follow-up in 3 months to exclude an underlying lesion. D/ / 02/24/2019 16:34:05 Miguel Gray MD / sb Interpreting Provider: Miguel Gray MD Consult Discharge Plan - Plan Referrals: Myron Henderson [Primary Care Provider] - - Attending Attestation I examined this patient and my medical decision-making was reviewed with the Resident Physician Dr Cordova. I agree with the documented findings, disposition and treatment plan as described except to the extent set forth below. Mr Newsome has an extensive pmhx including but not limited to arthritis, chronic opiate use, asthma with recent admission and dc from [facility] 01/13, and admission for which he was treated for pna and intubated while cared for in the ICU, afib on BB but not on AC, CAD, chronic chest pain with daily nitro use, DVT hx, DM on multi drug regimen, HTN, BROCK on cpap + 2L nc at home HS, anxiety on benzos, chronic anemia w bl hgb 7-9, CKD w bl creat 2.1 at best with referral for outpt nephro at last dc, and HFpEF. He is being observed for acute on chronic resp failure and acute on chronic hyponatremia awake, staff at bedside, on bipap, no sob currently, calm appearing. he has no complaints. gen- alert, awake,appears stated age cv- reg rate and rhythm, normal s1,s2, trace pitting edema bl le to knees lungs-good aeration posteriorly and ctabl, anteriorly + course bs, normal resp effort on bipap neuro- AAOx3 Acute on Chronic hypoxic resp failure, worsened today with desats to 80s% on cpap and lower when mask removed suspect recurrent asthma exacerbation + pna, cannot rule out PE -cont Iv abx, steroids, continuous bipap -pulm now consulted, US did not show significant amount of pleural effusion to drain -cannot obtain CTA d/t CKD status and allergy, cannot obtain VQ d/t recent pna, current possible pna + chronic disease, did not check dimer as would be elevated in this setting regardless of if has PE-- obtain BL LE US, if it were negative it would not be of great significance, though if + would presume PE and begin hep gtt Possible Hospital Acquired Multifocal Pna, org unknown- cont vanc + cefepime + levquin Acute on chronic HFpEF- diuresis as per nephro Acute on Chronic Severe Hyponatremia,2/2 Polydipsia, resolving- appreciate nephro input, cont nacl tabs, daily na checks now ERICK on CKD stage unknown- nephro following, renal dose meds CAD w chronic chest pain-takes nitro at home for cp daily-trop trend neg yesterday and ekg without acute ischemic changes, cont home meds, pain alleviates with nitro, if develops any acute sxs/findings then will consult cards at that time <Hallie Cordova - Last Filed: 02/25/19 14:52> Hospitalist Progress Note - Encounter Date of Encounter: 02/25/19 Time of Encounter: 09:02 - Subjective Interval History: Patient seen examined at bedside today. His respiratory status has worsened and he is sitting up on BiPAP appearing uncomfortable. He reports increased shortness of breath since last night. He denies fever, chills, abdominal pain. Update: patient had intermittent episodes of hypoxia with action saturation down to the 70s. Please see acute on chronic respiratory hypoxia assessment for further information. - Exam Vitals: Temp Pulse Resp BP Pulse Ox 98.8 F 75 25 108/69 89 02/25/19 07:46 02/25/19 07:46 02/25/19 07:46 02/25/19 07:46 02/25/19 07:46 Exam: Gen.: Vitals noted. No acute distress. AAOx3 HEENT: oropharynx clear, Normocephalic, atraumatic Cardiac: RRR, no murmur, +S1/S2 Pulmonary: bilaterally wheezes and rales, equal chest expansion Abdomen: soft, nontender, Bowel sounds noted, no guarding Extremities: nontender calf, no cyanosis or clubbing Neuro: A&Ox3, moves all extremities, no focal deficits Psych: Appropriate mood and behavior - Assessment and Plan (1) Acute and chronic respiratory failure with hypoxia Current Visit: Yes Status: Acute Assessment and Plan: Patient presented with acute chronic respiratory failure with hypoxia. -Etiology is undetermined however may be secondary to pneumonia. Patient has a history of asthma which may be exacerbating this. PE is also in differential however given possible multifocal pneumonia in no tachycardia less likely. -SpO2 90% on CPAP. Patient uses CPAP at home PRN -Afebrile, hemodynamically stable -WBC 12.5, slightly increased however he is on steroids -02/22/2019 chest x-ray showing bilateral opacities increased from prior exam representing multifocal pneumonia or pulmonary edema. -02/24/[address] showing moderate right pleural effusion. Bilateral lung opacities that may be pneumonia. Recommend follow-up 3 months to exclude underlying lesion. -The patient has been on CPAP. Plan -Today patient has had intermittent episodes of hypoxia with decreased oxygen sats down to the 70%. He been placed on BiPAP a couple times but had to be changed back to CPAP as he tolerated that better and it improved his oxygen saturation. It is unclear to what is causing the intermittent hypoxia. Cannot rule out pulmonary embolism however the patient has an allergy to cast diet and has not had a CT was contrast for over 20 years. This could also be due to mucous plug in consideration. The re recording mixer Dr. Alejandra evaluated the patient for possible thoracentesis however there is not enough fluid. There is no documented imaging with contrast here at [place]. Additionally while he was short of breath he was complaining of chest pain however this is similar to his chronic chest pain he experiences every day while at home several times a day and he takes nitroglycerin. So differential also included aortic dissection however blood pressure measurements in both arms were similar. The patient is hemodynamically stable. Because CT without contrast cannot be ordered a stat echocardiogram is to be ordered. Additionally bilateral lower extremity ultrasounds are ordered stat to evaluate for possible DVT. This was discussed with the patient and his whom stated understanding. Discussed with patient and family the possible need to start heparin drip depending on study results. The patient also reiterated that he would like to be intubated should he needed. The patient remains in critical condition and will closely monitor. He is at high risk for re-intubation. May possibly need to give another dose of IV Lasix. Pulmonology continues to follow. -continue vancomycin -continue cefepime -continue Levaquin -increase IV Solu-Medrol to 40 Q8H due to hypoxia in increased dyspnea -continue Symbicort scheduled -continue duonebs PRN (2) Hospital-acquired pneumonia Current Visit: Yes Status: Suspected Assessment and Plan: Hospital acquired pneumonia as a patient has been hospitalized within 90 days. -02/22/2019 chest x-ray showing bilateral opacities increased from prior exam representing multifocal pneumonia or pulmonary edema. -02/24/[address] showing moderate right pleural effusion. Bilateral lung opacities that may be pneumonia. Recommend follow-up 3 months to exclude underlying lesion. -Plan as above (3) Acute on chronic heart failure Current Visit: Yes Status: Acute Assessment and Plan: Patient has acute on chronic heart failure with preserved ejection fraction -12/2018 TTE: EF 55%, indeterminate diastolic dysfunction. Mild aortic stenosis, mild pulmonary hypertension. Technically suboptimal. -02/22/2019 chest x-ray showing bilateral opacities increased from prior exam representing multifocal pneumonia or pulmonary edema. -02/24/[address] showing moderate right pleural effusion. Bilateral lung opacities that may be pneumonia. Recommend follow-up 3 months to exclude underlying lesion. -BNP 633 plan: -continue Lasix 40 IV daily -continue aspirin, atorvastatin, metoprolol, imdur -strict I&O -daily weights -fluid restrictive diet (4) Abdominal pain Current Visit: Yes Status: Acute (5) Acute kidney injury superimposed on CKD Current Visit: Yes Status: Acute Assessment and Plan: Acute on chronic kidney disease stage 4 -Creatinine baseline 2.4 2.7 -creatinine 2.87, at baseline -poor urine output Plan -nephrology following, appreciate recommendations. Continue Lasix daily 40 mg -avoid nephrotoxic agents and renal dust medications -monitor serum creatinine and urine output (6) Hyponatremia Current Visit: Yes Status: Acute Assessment and Plan: Hypotonic hyponatremia. Sodium at lowest 112. -Etiology is likely noncompliance with fluid restriction. Patient drinks a lot of water. -Sodium 126 today -urine osmolality 189, urine creatinine 33, urine sodium 16 -patient is mentating appropriately Plan -improving -nephrology following, appreciate recommendations. -Continue sodium tablets 1 g b.i.d. -continue fluid restriction diet -continue sodium checks Q4H (7) Charcot's joint, right ankle and foot Current Visit: No Status: Acute Assessment and Plan: Chronic. Wound care consulted (8) CAD (coronary artery disease) Current Visit: No Status: Chronic Assessment and Plan: History of CAD taking aspirin and Plavix. Patient reports chronic daily chest pain for which he takes nitroglycerin 3 times a day. He follows with a visual merchandise manager that is not at [place]. -He had an episode of chest pain today which felt similar to at home however slightly worsened. It was retrosternal with pain in his left arm. He described as a pressure. It was relieved with nitroglycerin. EKG is listed below. He likely has chronic angina, the troponin comes back as positive will consult cardiology. -02/24/2019 EKG showed NSR no ST or T wave changes indicating ischemia -troponin negative x3 -Continue aspirin and Plavix -continue telemetry -continue nitroglycerin PRN (9) Asthma Current Visit: No Status: Chronic Assessment and Plan: Patient has known history of asthma. -Continue bronchodilators as above (10) Diabetes mellitus Current Visit: No Status: Chronic Assessment and Plan: History of diabetes -glucose controlled -continue Levemir 5 unit daily -continue low-dose sliding scale insulin -continue Accu check -continue diabetic diet (11) DVT prophylaxis Current Visit: No Status: Acute Assessment and Plan: Heparin SQ - Time Spent with Patient Total time spent is greater than 50% in coordination of care (as documented) at patient's floor/unit and/or counseling patient: Internal Medicine: Result - Labs CBC & Chem 7: 02/25/19 02:22 02/25/19 08:29 Labs: Short CBC 02/24/19 02/25/19 Range/Units 16:22 02:22 WBC 17.7 H (4.3-11.1) K/mcL Hgb 8.0 L 8.1 L (12.9-16.9) g/dL Hct 24.8 L 25.6 L (37.5-50.1) % Plt Count 252 (140-400) K/mcL Neutrophils # 15.8 H (1.6-8.9) K/mcL BMP 02/24/19 02/24/19 02/24/19 09:38 12:55 16:22 Sodium 124 L 125 L 125 L Potassium Chloride Carbon Dioxide BUN Creatinine Glucose Calcium 02/24/19 02/24/19 02/25/19 19:33 23:29 02:22 Sodium 124 L 126 L 126 L Potassium 4.1 Chloride 94 L Carbon Dioxide 19 L BUN 49 H Creatinine 2.87 H Glucose 194 H Calcium 8.0 L Cardiac Enzymes 02/24/19 02/24/19 02/25/19 Range/Units 12:55 19:33 02:22 Troponin I < 0.03 < 0.03 < 0.03 (< 0.04) ng/mL - ABG Interpretation ABG results: ABG ABG pH 7.36 pH Units (7.32-7.45) 02/22/19 13:18 ABG pCO2 35 mmHg (35-45) 02/22/19 13:18 ABG pO2 64 mmHg (85-104) L 02/22/19 13:18 ABG O2 Saturation 92 % (95-98) L 02/22/19 13:18 PT/INR, D-dimer PT 13.5 Seconds (9.4-12.1) H 02/24/19 12:55 - Impressions Impressions Chest CT 02/24/19 13:44 IMPRESSION: Moderate right pleural effusion. Bilateral lung opacities are nonspecific but may be on the basis of pneumonia. Recommend follow-up in 3 months to exclude an underlying lesion. D/ / 02/24/2019 16:34:05 Miguel Gray MD / sb Interpreting Provider: Migeul Gray MD <Kathy Huffman - Last Filed: 02/25/19 12:36> (2) Chronic kidney disease Qualifiers: Chronic kidney disease stage: stage 4 (severe) Qualified Code(s): N18.4 - Chronic kidney disease, stage 4 (severe) <Hallie Cordova - Last Filed: 02/25/19 14:52> (8) CAD (coronary artery disease) Qualifiers: Coronary Disease-Associated Artery/Lesion type: [place] artery [place] vs. transplanted heart: [place] heart Associated angina: without angina Qualified Code(s): I25.10 - Atherosclerotic heart disease of [place] coronary artery without angina pectoris (9) Asthma Qualifiers: Asthma severity: severe Asthma persistence: unspecified Asthma complication type: uncomplicated Qualified Code(s): J45.909 - Unspecified asthma, uncomplicated (10) Diabetes mellitus Qualifiers: Diabetes mellitus type: type 2 Diabetes mellitus tank terminal gauger insulin use: with [facility] use Diabetes mellitus complication status: with neurologic complications Diabetes mellitus complication detail: with polyneuropathy Qualified Code(s): E11.42 - Type 2 diabetes mellitus with diabetic polyneuropathy; Z79.4 - correction (current) use of insulin
[2019-02-25] MEDS: Budesonide/Formoterol 160/4.5 1 PUFF INH IH SCH ×2 (09:23→19:56)
--- NOTE | 2019-02-25 09:25 | Nephrology Progress Note ---
Date of Encounter: 02/25/19 Time of Encounter: 10:00 - Assessment and Plan (1) Hyponatremia Status: Resolved Sodium improved at 126 Urine osm consistent with polydipsia, appropriately low. continue fluid restriction, advised with pt educated Continue salt tabs for now (2) Hyperkalemia Status: Resolved Resolved s/p kayexalate, now at 4.1 Continue renal diet (3) Hospital-acquired pneumonia Status: Suspected Continue abx per primary but must dose vanco renally Continue to hold vanco for trough of 18 and monitor levels daily (4) ERICK (acute kidney injury) Status: Acute SCr noted at 2.87, GFR 22, worsening in the setting of sepsis, vanco and diuretics Continue lasix 40mg daily for now Continue to avoid nephrotoxins if possible Subjective Interval history: Pt seen and examined with worsening SOB on biPAP Objective - Vital Signs Vital signs: Vital Signs Temp Pulse Resp BP Pulse Ox 02/25/19 07:46 98.8 F 75 25 108/69 89 02/25/19 06:39 20 91 02/25/19 04:21 98.6 F 85 26 135/70 85 02/25/19 03:51 19 93 02/25/19 00:07 98.6 F 86 18 127/71 91 02/24/19 22:08 17 94 02/24/19 21:17 98.6 F 81 24 116/63 85 02/24/19 15:00 81 19 120/64 96 02/24/19 14:40 16 129/71 98 02/24/19 14:00 83 22 122/69 95 02/24/19 13:00 80 23 144/92 92 02/24/19 12:15 84 24 136/83 88 02/24/19 11:42 97.4 F L 02/24/19 11:00 82 23 116/92 91 02/24/19 10:48 13 135/84 94 02/24/19 09:30 85 23 134/69 90 Intake and Output 02/24/19 02/25/19 02/25/19 23:59 07:59 15:59 Intake Total 380 / 1200 480 / 480 Output Total 500 / 500 Balance 380 / 250 -20 / -20 Intake: IV Fluids 20 / 40 Maxipime 2,000 MG In Water for inj. (sterile) 20 ML @ 300 mls/ hr IVP BID JIMMY Rx#:[id number] Oral 360 / 1160 480 / 480 Output: Urine 500 / 500 Other: Meal Dinner Percent of Meal Consumed 95% Weight 129 kg Blood Glucose* 193 205 Patient Weight 02/25/19 23:59 Weight 129 kg - General Appearance General appearance: Present: moderate distress, chronically ill EENT: Present: ATNC, mucous membranes moist Neck: Present: no JVD, supple Respiratory: Present: course breath sounds Cardiology: Present: edema (LE edema bilat), normal S1, normal S2 Gastrointestinal: Present: no tenderness, no guarding Integumentary: Present: warm and dry Neurologic: Present: no focal deficit Musculoskeletal: Present: no deformities Psychiatric: Present: mood/affect appropriate, cooperative - Lab 03/08/19 01:33 03/08/19 01:33 Most recent lab results 02/25/19 02:22 Calcium 8.0 L Consult Discharge Plan - Plan Instructions: Heart Healthy Diet (DC), Fluid Restriction (DC), Pneumonia (DC) Additional Instructions: Daily wound care to right foot, calcium alginate, 4x4 and kerlix. NWB right lower extremity. Referrals: Myron Henderson [Primary Care Provider] -
--- NOTE | 2019-02-25 09:29 | Pulmonology Consult Note ---
<Tiffany Melgoza R - Last Filed: 02/25/19 09:54> Date of Encounter: 02/25/19 Time of Encounter: 09:29 Assessment and Plan (1) Acute and chronic respiratory failure with hypoxia Current Visit: Yes Status: Acute Patient hypoxic at 80% while on BiPAP Stat ABG obtained showed normal pH with normal CO2 and hypoxemia at 81 on 100% FiO2 BiPAP settings changed to increased PEEP to 10 and inspiratory pressure to 16 Pulse oxygenation increasing after BiPAP changes Continue treatment with steroids, scheduled DuoNeb's and Symbicort Pulmonary effusion seen on CAT scan not large enough to be drained Continue diuresis as kidneys tolerate Continue treatment for hospital-acquired pneumonia Monitor respiratory status as further decompensation will likely result in the patient needing to be intubated (2) CHF exacerbation Current Visit: Yes Status: Acute Echo obtained on 01/05/19 shows ejection fraction of 55% with indeterminate diastolic function, right ventricular dilation and pulmonary hypertension CAT scan shows right-sided pleural effusion Continue diuresis as kidneys tolerate Continue BiPAP Qualifiers: Heart failure type: diastolic Qualified Code(s): I50.9 - Heart failure, unspecified (3) Hospital-acquired pneumonia Current Visit: Yes Status: Suspected CAT scan shows possible evidence of bilateral pneumonia Pro-calcitonin within normal limits at 0.06 Originally received Levaquin and vancomycin, currently on vancomycin Management per primary team (4) COPD (chronic obstructive pulmonary disease) Current Visit: Yes Status: Acute Continue home Symbicort and duonebs scheduled q4H Continue 40 mg prednisone BID treatment for COPD exacerbation Continue BiPAP for hypoxia Qualifiers: COPD type: unspecified COPD Qualified Code(s): J44.9 - Chronic obstructive pulmonary disease, unspecified (5) Acute kidney injury superimposed on CKD Current Visit: Yes Status: Acute Worsening kidney function with latest creatinine 2.87 Management per primary team (6) Hyponatremia Current Visit: Yes Status: Acute Currently hyponatremic with a sodium of 126 Continue fluid restriction this will help with his breathing Further management per primary team History of Present Illness Consult date: 02/25/19 Requesting physician: Hallie Cordova Reason for consult: hypoxemia History of present illness: 64 yo male with past medical history of CHF, CAD with chronic chest pain, DM, NE with stent placement, and COPD was admitted for difficulty in breathing on 02/22. He was found to be in CHF exacerbation and has been intermittently on BiPAP with diuresis for his shortness breath and hypoxia. He did have sudden hyponatremia where a central line was placed for hypertonic saline administration on 02/23 but hypertonic saline was not started as his sodium stayed stable at 119. Today the patient became more hypoxic and was complaining of increased shortness of breath, satting 80% on BiPAP. Pulmonology was consulted for further management of his respiratory status. Pulmonary effusions were visualized on chest x-ray and [id number] ultrasound of the patient's lungs was done which did not show any significant pocket of fluid for drainage. His BiPAP settings were changed to increase the PEEP to 10 and the inspiratory pressure to 16. The patient's oxygenation increased after the vent settings were changed. The patient also did have diffuse wheezing on exam and stat ABG will be obtained along with breathing treatments. Past Med Surg Social Fam HX - Past Medical History Attestation: Yes The following information was validated with the patient. Medical history: arthritis, asthma, atrial fibrillation, coronary artery disease, DVT, diabetes, GERD, hyperlipidemia, hypertension, myocardial infarction, other Additional medical history: BROCK w/ CPAP/2L o2. DJD Psychiatric history: anxiety - Past Surgical History Surgical History: appendectomy, cholecystectomy Additional surgical history: KNEE SURGERY , stent x1, right ankle ext. fixation. Bilateral CTR - Social History Smoking Status: Never smoker Smokeless Tobacco Status: No Alcohol use: none Drug use: none - Family History Mother Living Status: Hx Family Cardiac Disorders: Yes Hx Family Endocrine Disorder: Yes (DM) Father Living Status: Hx Family Cardiac Disorders: Yes (atersclerosis) Medications and Allergies Albuterol Neb [Proventil Neb] 2.5 mg IH Q4HR PRN 09/01/18 [History] Aspirin [Lo-Dose Aspirin EC] 81 mg PO DAILY 09/01/18 [History] Atorvastatin [Lipitor] 40 mg PO DAILY 09/01/18 [History] Clopidogrel [Plavix] 75 mg PO DAILY 09/01/18 [History] EPINEPHrine [Epipen] 0.3 mg IM ONCE PRN 09/01/18 [History] Empagliflozin [Jardiance] 10 mg PO DAILY 09/01/18 [History] Fluticasone/Salmeterol [Advair Hfa 230-21 Mcg Inhaler] 2 puff IH BID 09/01/18 [History] Folic Acid 1 mg PO DAILY 09/01/18 [History] GlipiZIDE XL (24 HR) [Glucotrol XL] 5 mg PO 0800 09/01/18 [History] LORazepam [Ativan] 0.5 mg PO BID 09/01/18 [History] Montelukast [Singulair] 10 mg PO HS 09/01/18 [History] Nitroglycerin [Nitrostat] 0.4 mg SL Q5MIN PRN MDD MAX 3 DOSE/24HOURS 09/01/18 [History] [place]-3 Fatty Acids/Fish Oil [Eql [place]-3 Fish Oil 1,000 mg] 1 cap PO DAILY 09/01/18 [History] Pantoprazole Sodium [Protonix] 20 mg PO DAILY 09/01/18 [History] Tiotropium [Spiriva] 18 mcg IH DAILY 09/01/18 [History] Albuterol Sulfate [Ventolin Hfa] 2 puff IH Q4H PRN 10/14/18 [History] Amlodipine Besylate 10 mg PO DAILY 10/14/18 [History] Fluticasone Propionate Nasal [Flonase] 2 spr NS DAILY PRN 10/14/18 [History] Isosorbide MONOnitrate [Isosorbide Mononitrate ER] 30 mg PO DAILY 10/14/18 [History] Magnesium Oxide [Magnesium] 400 mg PO DAILY 10/14/18 [History] Metoprolol Succinate 50 mg PO DAILY 10/14/18 [History] Pramlintide Acetate [Symlinpen 120] 120 mcg SQ TID 10/14/18 [History] Docusate [Colace] 100 mg PO BID PRN 10/27/18 [History] FLUoxetine HCl [Prozac] 80 mg PO DAILY 10/27/18 [History] Ferrous Sulfate [Iron] 325 mg PO DAILY 10/27/18 [History] Multivit-Min/Iron/Folic Acid/K [Adults Multivitamin Tablet] 1 each PO DAILY 10/27/18 [History] Tamsulosin HCl [Flomax] 0.4 mg PO DAILY 10/28/18 [History] Furosemide [Lasix] 40 mg PO BID 11/30/18 [History] Loratadine [Allergy Relief] 10 mg PO DAILY 11/30/18 [History] Catheter [Clean-Cath] 1 each MC TID PRN #30 each 12/22/18 [Rx] Omalizumab [XOLAIR (For Outpatient Infusion)] 150 mg SQ Q2W 02/22/19 [History] OxyCODONE/APAP 10/325 [Percocet 10/325 MG] 1 tab PO Q4HR PRN 02/22/19 [History] Gabapentin 800 mg PO QID 02/23/19 [History] predniSONE [PredniSONE] 30 mg PO BID 02/23/19 [History] Allergy/AdvReac Type Severity Reaction Status Date / Time dapagliflozin [From [facility]] Allergy Hives Verified 10/28/18 13:46 naphazoline Allergy Hives Verified 10/28/18 13:46 cath DYE Allergy Hives Uncoded 10/28/18 13:46 All Systems: The remainder of the systems were reviewed and are negative - Constitutional Constitutional: fatigue, no fever(s) - EENT Nose, mouth and throat: dry mouth, no dizziness, no vertigo - Cardiovascular Cardiovascular: chest pain, chest pain at rest, chest pain with activity, dyspnea, dyspnea on exertion, no edema - Respiratory Respiratory: dyspnea, no cough - Gastrointestinal Gastrointestinal: no abdominal pain, no diarrhea, no nausea, no vomiting - Musculoskeletal Musculoskeletal: weakness - Neurological Neurological: no confusion, no weakness Physical Examination Vital Signs: Vital Signs, Last 4 Hours Temp Pulse Resp BP Pulse Ox 02/25/19 07:46 98.8 F 75 25 108/69 89 02/25/19 06:39 20 91 General appearance: alert Eyes: nonicteric Effort: mildly labored Auscultation: bilateral: wheezes (end expiratory) Cardiovascular: regular rate and rhythm Gastrointestinal: soft, non-tender Integumentary: normal Extremities: pink and warm, edema (trace) normal mental status, non-focal exam, pupils equal and round mood appropriate, affect normal Results - Laboratory Findings CBC and BMP: 02/25/19 02:22 02/25/19 08:29 ABG ABG pH 7.36 pH Units (7.32-7.45) 02/22/19 13:18 ABG pCO2 35 mmHg (35-45) 02/22/19 13:18 ABG pO2 64 mmHg (85-104) L 02/22/19 13:18 ABG O2 Saturation 92 % (95-98) L 02/22/19 13:18 PT/INR, D-dimer PT 13.5 Seconds (9.4-12.1) H 02/24/19 12:55 Abnormal lab findings: Abnormal lab results WBC 17.7 K/mcL (4.3-11.1) H 02/25/19 02:22 RBC 2.94 M/mcL (4.19-5.50) L 02/25/19 02:22 Hgb 8.1 g/dL (12.9-16.9) L 02/25/19 02:22 Hct 25.6 % (37.5-50.1) L 02/25/19 02:22 MCH 27.6 pg (28.0-33.3) L 02/25/19 02:22 MCHC 31.3 g/dL (31.6-35.5) L 02/22/19 10:13 RDW 17.7 % (11.5-14.5) H 02/25/19 02:22 Neutrophils # 15.8 K/mcL (1.6-8.9) H 02/25/19 02:22 Lymphocytes # 0.3 K/mcL (0.6-4.6) L 02/25/19 02:22 Monocytes # 1.5 K/mcL (0.0-1.3) H 02/25/19 02:22 PT 13.5 Seconds (9.4-12.1) H 02/24/19 12:55 ABG pO2 64 mmHg (85-104) L 02/22/19 13:18 ABG HCO3 20 mEq/L (21-27) L 02/22/19 13:18 ABG O2 Saturation 92 % (95-98) L 02/22/19 13:18 ABG Base Excess -5 mEq/L (-2 to 3) L 02/22/19 13:18 VBG pCO2 28 mmHg (41-51) L 02/23/19 09:26 VBG pO2 131 mmHg (25-50) H 02/23/19 09:26 VBG HCO3 18 mEq/L (21-27) L 02/23/19 09:26 Sodium 126 mEq/L (136-145) L 02/25/19 08:29 Potassium 5.4 mEq/L (3.5-5.1) H 02/23/19 16:40 Chloride 94 mEq/L (98-107) L 02/25/19 02:22 Carbon Dioxide 19 mEq/L (23-29) L 02/25/19 02:22 BUN 49 mg/dL (8-23) H 02/25/19 02:22 Creatinine 2.87 mg/dL (0.70-1.30) H 02/25/19 02:22 Est GFR ( Amer) 27 (> 60) L 02/25/19 02:22 Est GFR (Non-Af Amer) 22 (> 60) L 02/25/19 02:22 Glucose 194 mg/dL (70-105) H 02/25/19 02:22 POC Glucose 167 mg/dL (70-99) H 02/24/19 10:59 Serum Osmolality 275 mOsm/kg (280-300) L 02/23/19 11:07 Calculated Osmolality 262 (280-300) L 02/24/19 03:35 Calcium 8.0 mg/dL (8.6-10.3) L 02/25/19 02:22 B-Natriuretic Peptide 633 pg/mL (Less than 100) H 02/22/19 10:13 Urine Osmolality 189 mOsm/kg (300-1090) L 02/23/19 12:42 Nasal Screen MRSA (PCR) DETECTED (Not Detect) A 02/23/19 12:26 Vancomycin Trough 21 mcg/mL (5-10) H 02/24/19 09:38 - Microbiology Findings Microbiology Findings: Microbiology, Last 48 Hours 02/23/19 12:38 Legionella Antigen - Final Urine,Clean Catch Streptococcus pneumoniae Antigen (M - Final - Clinical Findings Intake & Output: Intake & Output 02/24/19 02/25/19 02/25/19 23:59 07:59 15:59 Intake Total 380 / 1200 480 / 480 Output Total 500 / 500 Balance 380 / 250 -20 / -20 Weight 129 kg Consult Discharge Plan - Plan Referrals: Myron Henderson [Primary Care Provider] - <Nadira Alejandra M - Last Filed: 02/25/19 18:48> Date of Encounter: 02/25/19 All Systems: The remainder of the systems were reviewed and are negative Physical Examination Vital Signs: Vital Signs, Last 4 Hours Temp Pulse Pulse Resp BP Pulse Ox Pulse Ox 02/25/19 18:01 69 15 121/71 80 02/25/19 17:13 20 119/63 80 02/25/19 17:02 75 02/25/19 17:00 96.8 F L 77 27 112/60 75 02/25/19 16:53 79 58 02/25/19 15:34 96.8 F L 80 28 122/67 85 Ventilator Settings Ventilator Settings: Ventilator Settings, Last 8 Hours Ventilator Tidal Volume 500 Setting Ventilator Tidal Volume 500 Setting Ventilator Tidal Volume 500 Setting Ventilator Tidal Volume 500 Setting Ventilator Respiratory Rate 12 Setting Ventilator Respiratory Rate 12 Setting Ventilator Respiratory Rate 12 Setting Actual Respiratory Rate 13 Actual Respiratory Rate 20 Positive End Expiratory 15 Pressure Positive End Expiratory 15 Pressure Positive End Expiratory 15 Pressure Peak Inspiratory Airway 18 Pressure Results - Laboratory Findings CBC and BMP: 02/25/19 02:22 02/25/19 08:29 ABG ABG pH 7.27 pH Units (7.32-7.45) L 02/25/19 17:44 ABG pCO2 44 mmHg (35-45) 02/25/19 17:44 ABG pO2 51 mmHg (85-104) L 02/25/19 17:44 ABG O2 Saturation 80 % (95-98) L 02/25/19 17:44 PT/INR, D-dimer PT 13.5 Seconds (9.4-12.1) H 02/24/19 12:55 Abnormal lab findings: Abnormal lab results WBC 17.7 K/mcL (4.3-11.1) H 02/25/19 02:22 RBC 2.94 M/mcL (4.19-5.50) L 02/25/19 02:22 Hgb 8.1 g/dL (12.9-16.9) L 02/25/19 02:22 Hct 25.6 % (37.5-50.1) L 02/25/19 02:22 MCH 27.6 pg (28.0-33.3) L 02/25/19 02:22 MCHC 31.3 g/dL (31.6-35.5) L 02/22/19 10:13 RDW 17.7 % (11.5-14.5) H 02/25/19 02:22 Neutrophils # 15.8 K/mcL (1.6-8.9) H 02/25/19 02:22 Lymphocytes # 0.3 K/mcL (0.6-4.6) L 02/25/19 02:22 Monocytes # 1.5 K/mcL (0.0-1.3) H 02/25/19 02:22 PT 13.5 Seconds (9.4-12.1) H 02/24/19 12:55 ABG pH 7.27 pH Units (7.32-7.45) L 02/25/19 17:44 ABG pCO2 32 mmHg (35-45) L 02/25/19 09:33 ABG pO2 51 mmHg (85-104) L 02/25/19 17:44 ABG HCO3 20 mEq/L (21-27) L 02/25/19 17:44 ABG O2 Saturation 80 % (95-98) L 02/25/19 17:44 ABG Base Excess -7 mEq/L (-2 to 3) L 02/25/19 17:44 VBG pCO2 28 mmHg (41-51) L 02/23/19 09:26 VBG pO2 131 mmHg (25-50) H 02/23/19 09:26 VBG HCO3 18 mEq/L (21-27) L 02/23/19 09:26 Sodium 126 mEq/L (136-145) L 02/25/19 08:29 Potassium 5.4 mEq/L (3.5-5.1) H 02/23/19 16:40 Chloride 94 mEq/L (98-107) L 02/25/19 02:22 Carbon Dioxide 19 mEq/L (23-29) L 02/25/19 02:22 BUN 49 mg/dL (8-23) H 02/25/19 02:22 Creatinine 2.87 mg/dL (0.70-1.30) H 02/25/19 02:22 Est GFR ( Amer) 27 (> 60) L 02/25/19 02:22 Est GFR (Non-Af Amer) 22 (> 60) L 02/25/19 02:22 Glucose 194 mg/dL (70-105) H 02/25/19 02:22 POC Glucose 205 mg/dL (70-99) H 02/25/19 16:35 Serum Osmolality 275 mOsm/kg (280-300) L 02/23/19 11:07 Calculated Osmolality 262 (280-300) L 02/24/19 03:35 Calcium 8.0 mg/dL (8.6-10.3) L 02/25/19 02:22 B-Natriuretic Peptide 633 pg/mL (Less than 100) H 02/22/19 10:13 Urine Osmolality 189 mOsm/kg (300-1090) L 02/23/19 12:42 Nasal Screen MRSA (PCR) DETECTED (Not Detect) A 02/23/19 12:26 Vancomycin Trough 21 mcg/mL (5-10) H 02/24/19 09:38 - Microbiology Findings Microbiology Findings: Microbiology, Last 48 Hours 02/23/19 12:38 Legionella Antigen - Final Urine,Clean Catch Streptococcus pneumoniae Antigen (M - Final - Clinical Findings Intake & Output: Intake & Output 02/25/19 02/25/19 02/25/19 07:59 15:59 23:59 Intake Total 480 / 514 20 514 Output Total 500 / 500 0 / 500 Balance - Weight 129 kg - Attending Attestation I examined this patient and my medical decision-making was reviewed with the Resident Physician. I agree with the documented findings, disposition and treatment plan as described except to the extent set forth below. Patient seen and examined. I was called by the hospitalist to evaluate this patient respiratory status is getting worse. Labs, radiology, chart personally reviewed. Agree with resident's history and physical, assessment, plan with following comments: BOTTOM LINER: Patient follows commands, subsequently patient was intubated on sedation. Pulmonary: Patient initially was in the floor and then transferred to ICU. When he was on the floor he was on BiPAP. I've changed his setting and oxygenation i mproved, unfortunately he got worse and I suspect there is combination of volume with hydorstatic pulmonary edema with possible acute on chronic diastolic heart failure and with pneumonia and ARDS. Will need to keep his Ppl below 30 if possible and changed his vent setting and may need paralytic and even prone position. I did bedside US and small pleural effusion and not enough to make any significant improvement with thoracentesis. There is evidence of pulmonary edema. Cardiovascular: Relatively stable at this time and she is clearly have evidence of volume depletion that will need volume expansion. GI: Nutrition per dietary and GI prophylaxis per routine. NPO because I felt patient condition may need intubation. Heme: DVT prophylaxis per routine. I doubt he has pulm embolism and getting dopplers of lower ext is reasonable. ID: Continue antibiotics and plan to de-escalation. I suspect sepsis and possible pneumonia. Renal; urine out put and renal function reviewed. I discussed with circuit board assembler and will recommend to avoid any contrast, but need diursis because of problem with oxygenation. Endorcine: blood glucose is monitored Lines: all lines checked and no evidence of infections Skin: skin care to prevent pressure ulcers per nursing routine care. Dispo: ICU Code: full code Prognosis. I feel this might be poor with his multiple comorbidites and significant hypoxia. I spent 55 minutes of Critical Care time with this patient. It involved decision making of high complexity to assess, manipulate, and support vital organ system failure and/or to prevent further life threatening deterioration of the patient's condition. The time involved in the performance of separately re portable procedures was not counted toward critical care time.
[2019-02-25 09:37] LABS: ABG Base Excess -5 mEq/L (-2 to 3); ABG HCO3 19 mEq/L (21-27); ABG Oxygen Saturation 94 % (95-98); ABG PCO2 32 mmHg (35-45); ABG PH 7.39 pH Units (7.32-7.45); ABG PO2 71 mmHg (85-104); ABG TCO2 20 mEq/L (20-26)
[2019-02-25] MEDS ORDERED: *HR* LORazepam 2 MG/ML VIAL IVP PRN (09:41)
--- NOTE | 2019-02-25 12:04 | Electrocardiograph Report ---
[place] [id number] Test Date: 2019-02-23 Pat Name: Noe Newsome Department: 112 Room: 2NE22 Gender: M Sql Report Writer: : 1955 Requested By: Lefty Sanchez Order Number: [id number] Reading MD: Aster Jean Measurements Intervals [place] Rate: 76 P: 48 VA: 279 QRS: 31 QRSD: 118 T: 91 QT: 415 QTc: 446 Interpretive Statements SINUS RHYTHM WITH FIRST DEGREE AV BLOCK INTRAVENTRICULAR CONDUCTION DELAY MINIMAL ST DEPRESSION WITH TWI SEPTAL LEADS POSSIBLY REPRESENTING ISCHEMIA Electronically Signed On 02-25-2019 12:03:36 EDT by Aster Jean
[2019-02-25] MEDS ORDERED: Perflutren Lipid Microsphere 1.3 ML in 0.9 % Sodium Chloride 8.7 ML IVP ONE (13:28)
[2019-02-25] MEDS: Multivit/Ca/Min/Fe/FA 1 TAB TABLET PO SCH (14:03)
[2019-02-25] MEDS: Metoprolol XL (24 HR) Succ 50 MG TAB.ER.24H PO SCH (14:03)
[2019-02-25] MEDS: FLUoxetine 20 MG CAPSULE PO SCH (14:04)
[2019-02-25] MEDS: amLODIPine 5 MG TABLET PO SCH (14:05)
[2019-02-25] MEDS: Magnesium Oxide 400 MG TABLET PO SCH (14:06)
[2019-02-25] MEDS: Folic Acid 1 MG TABLET PO SCH (14:06)
[2019-02-25] MEDS: Isosorbide MONOnitrate (24 HR) 30 MG TAB.ER.24H PO SCH (14:06)
[2019-02-25] MEDS: Furosemide 40 MG TABLET PO SCH (14:06)
[2019-02-25] MEDS: Loratadine 10 MG TABLET PO SCH (14:07)
[2019-02-25] MEDS: Aspirin Enteric Coated 81 MG Tablet PO SCH (14:07)
[2019-02-25] MEDS ORDERED: Ondansetron 4 MG/2 ML VIAL ONE (16:46)
[2019-02-25] MEDS ORDERED: Artificial Tears SOLN 15 ML BOTTLE BOTH EYES PRN (16:59)
[2019-02-25] MEDS ORDERED: Ondansetron 4 MG/2 ML VIAL IVP STA (17:01)
--- NOTE | 2019-02-25 17:20 | Event Note ---
Date of Encounter: 02/25/19 Time of Encounter: 16:45 Pt transferred to ICU given his resp status and high risk for intubation. On arrival he is feeling nauseated and like he would vomit. Bipap off and desat into 60s. He is no longer a bipap/ cpap candidate and requires intubation which he is agreeable. Family is present and agreeable as well. Pt intubated by RT with myself and resident at bedside. dr Alejandra is consulted for Pulm Crit management and aware. Family updated. Hospitalist team will hand over care to Pulm Crit team at this time for further management.
[2019-02-25 17:51] LABS: ABG Base Excess -7 mEq/L (-2 to 3); ABG HCO3 20 mEq/L (21-27); ABG Oxygen Saturation 80 % (95-98); ABG PCO2 44 mmHg (35-45); ABG PH 7.27 pH Units (7.32-7.45); ABG PO2 51 mmHg (85-104); ABG TCO2 21 mEq/L (20-26); Blood Gas PEEP 15 cm H2O; Blood Gas VT 500 cc
[2019-02-25 17:51] LABS: ABG Base Excess -6 mEq/L (-2 to 3); ABG HCO3 20 mEq/L (21-27); ABG Oxygen Saturation 88 % (95-98); ABG PCO2 37 mmHg (35-45); ABG PH 7.33 pH Units (7.32-7.45); ABG PO2 57 mmHg (85-104); ABG TCO2 21 mEq/L (20-26); Blood Gas PEEP 16 cm H2O
[2019-02-25] MEDS ORDERED: Furosemide 40 MG/4 ML VIAL IVP ONE (18:35)
[2019-02-25 19:55] LABS: ABG Base Excess -6 mEq/L (-2 to 3); ABG HCO3 21 mEq/L (21-27); ABG Oxygen Saturation 83 % (95-98); ABG PCO2 47 mmHg (35-45); ABG PH 7.27 pH Units (7.32-7.45); ABG PO2 54 mmHg (85-104); ABG TCO2 23 mEq/L (20-26); Blood Gas Modality AF; Blood Gas PEEP 15 cm H2O; Blood Gas VT 400 cc
[2019-02-25] MEDS: Artificial Tears SOLN 15 ML BOTTLE BOTH EYES SCH ×2 (19:57→23:32)
[2019-02-25] MEDS: Chlorhexidine Rinse 15 ML MOUTHWASH MM SCH (19:57)
[2019-02-25] MEDS: FentaNYL (PF) 1,000 MCG in 0.9 % Sodium Chloride 80 ML IVC SCH (22:44)
[2019-02-26] MEDS: Ipratropium/Albuterol Neb 3 ML IH SCH ×6 (03:13→23:35)
[2019-02-26] MEDS: Artificial Tears SOLN 15 ML BOTTLE BOTH EYES SCH ×6 (03:48→23:06)
[2019-02-26 05:54] LABS: ABG Base Excess -8 mEq/L (-2 to 3); ABG HCO3 20 mEq/L (21-27); ABG Oxygen Saturation 99 % (95-98); ABG PCO2 50 mmHg (35-45); ABG PO2 154 mmHg (85-104); ABG TCO2 21 mEq/L (20-26); Blood Gas Modality ASSIST CONTROL; Blood Gas PEEP 15 cm H2O; Blood Gas VT 400 cc
[2019-02-26] MEDS: *HR* Heparin 5,000 UNIT/ML VIAL SQ SCH ×3 (06:04→20:26)
[2019-02-26 06:19] LABS: Basophils % 0.1 %; Hematocrit 24.4 % (37.5-50.1); Hemoglobin 7.6 g/dL (12.9-16.9); Lymphocytes # 0.2 K/mcL (0.6-4.6); Mean Corpuscular HGB Conc 31.1 g/dL (31.6-35.5); Mean Corpuscular Hemoglobin 27.3 pg (28.0-33.3); Mean Corpuscular Volume 87.8 fL (83.0-100.0); Mean Platelet Volume 12.1 fL (9.4-12.4); Monocytes # 0.8 K/mcL (0.0-1.3); Monocytes % 4.2 %; Neutrophils # 16.7 K/mcL (1.6-8.9); Platelet Count 217 K/mcL (140-400); Red Blood Count 2.78 M/mcL (4.19-5.50); Red Cell Distribution Width 17.8 % (11.5-14.5); Segmented Neutrophils % 93.7 %; White Blood Count 17.8 K/mcL (4.3-11.1)
[2019-02-26 06:40] LABS: Potassium 4.3 mEq/L (3.5-5.1)
[2019-02-26 06:48] LABS: Platelet Estimate Normal (Normal)
[2019-02-26] MEDS: FentaNYL (PF) 1,000 MCG in 0.9 % Sodium Chloride 80 ML IVC SCH ×2 (07:11→15:10)
[2019-02-26] MEDS: Budesonide/Formoterol 160/4.5 1 PUFF INH IH SCH ×2 (07:46→20:11)
[2019-02-26] MEDS: Cefepime HCl 2,000 MG in Water for inj. (sterile) 20 ML IVP SCH (08:16)
[2019-02-26] MEDS: MethylPREDNISolone 40 MG/ML VIAL IVP SCH ×4 (08:16→23:06)
[2019-02-26] MEDS: Chlorhexidine Rinse 15 ML MOUTHWASH MM SCH ×2 (08:16→20:25)
[2019-02-26] MEDS: Pantoprazole 40 MG VIAL IVP SCH (08:16)
[2019-02-26] MEDS: Furosemide 40 MG TABLET PO SCH (08:17)
[2019-02-26] MEDS: Isosorbide MONOnitrate (24 HR) 30 MG TAB.ER.24H PO SCH (08:17)
[2019-02-26] MEDS: Multivit/Ca/Min/Fe/FA 1 TAB TABLET PO SCH (08:17)
[2019-02-26] MEDS: Magnesium Oxide 400 MG TABLET PO SCH (08:17)
[2019-02-26] MEDS: Metoprolol XL (24 HR) Succ 50 MG TAB.ER.24H PO SCH (08:18)
[2019-02-26] MEDS: amLODIPine 5 MG TABLET PO SCH (08:18)
[2019-02-26] MEDS: Folic Acid 1 MG TABLET PO SCH (08:18)
[2019-02-26] MEDS: FLUoxetine 20 MG CAPSULE PO SCH (08:18)
[2019-02-26] MEDS: Aspirin Enteric Coated 81 MG Tablet PO SCH (08:18)
[2019-02-26] MEDS: Loratadine 10 MG TABLET PO SCH (08:18)
[2019-02-26] MEDS ORDERED: levoFLOXacin 750 MG/150 ML 750 MG/150 ML BAG IVPB SCH (09:00)
--- NOTE | 2019-02-26 09:12 | Pulmonology Progress Note ---
<ChristyJesu W - Last Filed: 02/26/19 12:52> Date of Encounter: 02/26/19 Objective PUL Vital signs: Last Vital Signs Temp 97.5 F L 02/26/19 07:15 Pulse 83 02/26/19 12:00 Resp 24 02/26/19 12:00 BP 99/55 02/26/19 12:00 Pulse Ox 100 02/26/19 12:00 Ventilator Settings Ventilator Settings: Ventilator Settings, Last 8 Hours Ventilator Tidal Volume 500 Setting Ventilator Tidal Volume 500 Setting Ventilator Tidal Volume 500 Setting Ventilator Tidal Volume 500 Setting Ventilator Tidal Volume 500 Setting Ventilator Tidal Volume 400 Setting Ventilator Tidal Volume 500 Setting Ventilator Tidal Volume 400 Setting Ventilator Tidal Volume 500 Setting Ventilator Respiratory Rate 18 Setting Ventilator Respiratory Rate 18 Setting Ventilator Respiratory Rate 18 Setting Ventilator Respiratory Rate 18 Setting Ventilator Respiratory Rate 18 Setting Ventilator Respiratory Rate 18 Setting Ventilator Respiratory Rate 18 Setting Ventilator Respiratory Rate 18 Setting Ventilator Respiratory Rate 18 Setting Actual Respiratory Rate 24 Actual Respiratory Rate 20 Actual Respiratory Rate 20 Actual Respiratory Rate 21 Actual Respiratory Rate 22 Actual Respiratory Rate 22 Actual Respiratory Rate 22 Actual Respiratory Rate 21 Positive End Expiratory 15 Pressure Positive End Expiratory 15 Pressure Positive End Expiratory 15 Pressure Positive End Expiratory 15 Pressure Positive End Expiratory 15 Pressure Positive End Expiratory 15 Pressure Positive End Expiratory 15 Pressure Positive End Expiratory 15 Pressure Peak Inspiratory Airway 37 Pressure Peak Inspiratory Airway 37 Pressure Peak Inspiratory Airway 39 Pressure Peak Inspiratory Airway 35 Pressure Peak Inspiratory Airway 32 Pressure Peak Inspiratory Airway 36 Pressure Peak Inspiratory Airway 33 Pressure Peak Inspiratory Airway 30 Pressure Results - Laboratory Findings CBC and BMP: 02/26/19 06:06 02/26/19 06:06 ABG ABG pH 7.19 pH Units (7.32-7.45) L* 02/26/19 11:33 ABG pCO2 53 mmHg (35-45) H 02/26/19 11:33 ABG pO2 72 mmHg (85-104) L D 02/26/19 11:33 ABG O2 Saturation 90 % (95-98) L 02/26/19 11:33 PT/INR, D-dimer PT 13.5 Seconds (9.4-12.1) H 02/24/19 12:55 Abnormal lab findings: Abnormal lab results WBC 17.8 K/mcL (4.3-11.1) H 02/26/19 06:06 RBC 2.78 M/mcL (4.19-5.50) L 02/26/19 06:06 Hgb 7.6 g/dL (12.9-16.9) L 02/26/19 06:06 Hct 24.4 % (37.5-50.1) L 02/26/19 06:06 MCH 27.3 pg (28.0-33.3) L 02/26/19 06:06 MCHC 31.1 g/dL (31.6-35.5) L 02/26/19 06:06 RDW 17.8 % (11.5-14.5) H 02/26/19 06:06 Neutrophils # 16.7 K/mcL (1.6-8.9) H 02/26/19 06:06 Lymphocytes # 0.2 K/mcL (0.6-4.6) L 02/26/19 06:06 Monocytes # 1.5 K/mcL (0.0-1.3) H 02/25/19 02:22 PT 13.5 Seconds (9.4-12.1) H 02/24/19 12:55 ABG pH 7.19 pH Units (7.32-7.45) L* 02/26/19 11:33 ABG pCO2 53 mmHg (35-45) H 02/26/19 11:33 ABG pO2 72 mmHg (85-104) L D 02/26/19 11:33 ABG HCO3 20 mEq/L (21-27) L 02/26/19 11:33 ABG O2 Saturation 90 % (95-98) L 02/26/19 11:33 ABG Base Excess -9 mEq/L (-2 to 3) L 02/26/19 11:33 VBG pCO2 28 mmHg (41-51) L 02/23/19 09:26 VBG pO2 131 mmHg (25-50) H 02/23/19 09:26 VBG HCO3 18 mEq/L (21-27) L 02/23/19 09:26 Sodium 127 mEq/L (136-145) L 02/26/19 06:06 Potassium 5.4 mEq/L (3.5-5.1) H 02/23/19 16:40 Chloride 94 mEq/L (98-107) L 02/26/19 06:06 Carbon Dioxide 19 mEq/L (23-29) L 02/26/19 06:06 BUN 60 mg/dL (8-23) H 02/26/19 06:06 Creatinine 3.06 mg/dL (0.70-1.30) H 02/26/19 06:06 Est GFR ( Amer) 25 (> 60) L 02/26/19 06:06 Est GFR (Non-Af Amer) 21 (> 60) L 02/26/19 06:06 Glucose 270 mg/dL (70-105) H 02/26/19 06:06 POC Glucose 323 mg/dL (70-99) H 02/26/19 11:36 Serum Osmolality 275 mOsm/kg (280-300) L 02/23/19 11:07 Calculated Osmolality 262 (280-300) L 02/24/19 03:35 Calcium 8.0 mg/dL (8.6-10.3) L 02/26/19 06:06 B-Natriuretic Peptide 633 pg/mL (Less than 100) H 02/22/19 10:13 Urine Osmolality 189 mOsm/kg (300-1090) L 02/23/19 12:42 Nasal Screen MRSA (PCR) DETECTED (Not Detect) A 02/23/19 12:26 Vancomycin Trough 21 mcg/mL (5-10) H 02/24/19 09:38 - Clinical Findings Intake & Output: Intake & Output 02/25/19 02/26/19 02/26/19 23:59 07:59 15:59 Intake Total 220 / 720 300.0 / 500.0 200 / 500.0 Output Total 475 / 1125 235 / 235 Balance -255 / -405 65.0 / 265.0 200 / 265.0 Weight 124.3 kg Consult Discharge Plan - Plan Referrals: Myron Henderson [Primary Care Provider] - - Attending Attestation I examined this patient and my medical decision-making was reviewed with the Resident Physician. I agree with the documented findings, disposition and treatment plan as described except to the extent set forth below. We independently had [id number] contact with the patient I spent 40min of Critical Care time with this patient. It involved decision making of high complexity to assess, manipulate, and support vital organ system failure and/or to prevent further life threatening deterioration of the patient 's condition. The time involved in the performance of separately reportable procedures was not counted toward critical care time. Patient seen and examined at bedside Labs, radiology, chart personally reviewed. Management was reviewed during multidisciplinary critical care rounds. 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 Repeat ABG pending Cards: Blood pressure monitored and stable he has decompensated heart failure with preserved ejection fraction and will need to have aggressive diuresis this is a pattern that has been seen with Mr. Newsome on several occasions GI: Prophylaxis while on vent Nutrition: Nothing by mouth for now Renal: Acute on chronic kidney injury this is likely secondary to heart failure and should benefit from diuresis continue renal protective strategy UOP Monitored, Cont to Trend sCr and monitor Electrolytes. Hyponatremia is likely hypovolemic hyponatremia and this has improved ID: No clear source of infection clinically procalcitonin on 02/23 was wiithin normal limits. Recheck level and reculture given the worsening leukocytosis although patient remains afebrile could not fully exclude pneumonia in the differential of his respiratory failure Heme/Onc: DVT prophylaxis given Endo: Glucose Monitored Integ/MSK: Skin Care per routine ICU Nursing Protocol to prevent ulcers. Lines: All lines examined without evidence of infection : Dispo: Monitor in ICU for critical Illness CODE: Full Code. Prognosis is guarded <Lefty Sanchez - Last Filed: 02/26/19 16:29> Date of Encounter: 02/26/19 Time of Encounter: 10:30 Assessment and Plan (1) Acute and chronic respiratory failure with hypoxia Current Visit: Yes Status: Acute -likely due to infectious pneumonia vs. heart failure with preserved ejection fraction -ABG 02/23/19: no significant metabolic derangements; A-a gradient: (using 2L NC FiO2 of 24% as estimation) elevated at 63.4. Repeat VBG 02/23/19 also shows higher than expected A-a gradient. -ABG 02/26/19: Metabolic acidosis, respiratory acidosis, metabolic alkalosis. A- a gradient: Elevated. -Will defer CTA at this point as disease process more likely explained by other etiology and risk/benefit correlation in the setting of ERICK on CKD. -Hypoxic on mask therapy. Intubated 02/25/19. Plan: Sedation with Dexmedetomidine, fentanyl, propofol . Vent: Rate 18, FiO2 100, PEEP 15, TV 500. DuoNeb's. Symbicort. Solu-Medrol every 8 hours. (2) High anion gap metabolic acidosis Current Visit: Yes Status: Acute Background -Consider 2/2 uremia -Lactic acid within normal limits. Lab -ABG: As above Plan: Repeat ABG. Nephrology following. (3) Respiratory acidosis Current Visit: Yes Status: Acute -ABG as above Plan: Continue optimization of ventilation settings. (4) Metabolic alkalosis Current Visit: Yes Status: Acute Background -Consider due to initiation: diuresis, post-resp. acidosis // maintenance: Volume depletion S/Sx -Good skin turgor, lower extremity edema as above Lab -ABG: As above Plan: Repeat ABG. consider Urine Cl level. (5) Acute on chronic diastolic (congestive) heart failure Current Visit: No Status: Suspected -Consider 2/2 infectious process -Patient admits baseline orthopnea, PND, leg swelling. Recent increased dyspnea -Troponin negative -BNP 611 -TSH WNL; A1c 04/10/18 7.6 -CXR 02/23/19 shows stable cardiomegaly -Echo 01/05/19: Suboptimal. LVEF 55%. Indeterminant diastolic function. Grossly mildly dilated right ventricle with normal function. Mild aortic stenosis. Mild pulmonary hypertension -Echo 02/26/19: Left ventricular ejection fraction 60%. Indeterminant diastolic function. Mild to moderate aortic stenosis, mild mitral regurg, mild tricuspid regurg. Borderline pulmonary hypertension. Plan: Metoprolol succinate, aspirin, isosorbide mononitrate, atorvastatin. No DARSHAN inhibitor secondary to CKD. Continue diuresis with 1 mg Bumex IV. Hold home furosemide. (6) Hyponatremia Current Visit: No Status: Acute -Acute on chronic -Searching for cause. Consider secondary to fluid overload state from heart failure with preserved ejection fraction. - 112 at the lowest. Recently in the 120s. -Urine sodium 16.1, urine creatinine 33, urine osmolality low at 189. Will likely need repeat of these values after saline therapy. Consider some component of SIADH or glucocorticoid deficiency. -Nephrology is favoring component of polydipsia. Appreciate their recommendations Plan: PICC placed. Salt tablets. (7) Hyperkalemia Current Visit: Yes Status: Acute -Consider secondary to ERICK on CKD versus hypoaldosteronism -EKG 02/23/19: showed no peaked T waves. sinus rhythm. HR 70. no ST or T waves changes indicating ischemia. -Resolved after Kayexalate therapy. plan: Nephrology consulted. Continue to monitor (8) Sepsis Current Visit: No Status: Acute -Possibly secondary to hospital-acquired pneumonia versus chronic wound of right lower extremity -SIRS 2 out of 4: temp stable, pulse 105 on arrival, rr 20 on arrival, WBC within normal limits -lactic acid within normal limits -blood cultures 02/22/19 x2 NTD and pending. -Pro calcitonin within normal limits. Legionella and Streptococcus pneumonia antigens negative. -CXR 02/22/19: Read as likely multifocal pneumonia versus pulmonary edema -CXR 02/26/19: Read as showing worsening diffuse airspace disease. -Repeat pro calcitonin elevated. Plan: Continue vancomycin day 2, cefepime day 1. Await final results of blood culture. sputum culture pending. Qualifiers: Qualified Code(s): A41.9 - Sepsis, unspecified organism (9) Acute kidney injury superimposed on CKD Current Visit: Yes Status: Acute -CKD stage IV -Consider secondary to cardiorenal syndrome -BUN/creatinine continued to worsen. Will likely need dialysis therapy. Plan: No DARSHAN inhibitor. Bumex as above. Nephrology consulted. (10) Pleural effusion Current Visit: No Status: Suspected -Suspected bilateral -As seen on CXR 02/25/19 -Continue to stabilize patient's respiratory status (11) Abscess of right foot Current Visit: No Status: Acute -Continue to monitor as concern for sepsis (12) COPD (chronic obstructive pulmonary disease) Current Visit: Yes Status: Acute -Medications for acute respiratory failure as above. Do not suspect over COPD exacerbation at this point as clinical picture points more towards heart failure. 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 use Diabetes mellitus complication status: with neurologic complications Diabetes mellitus complication detail: with polyneuropathy Qualified Code(s): E11.42 - Type 2 diabetes mellitus with diabetic polyneuropathy; 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 OG tube in place. Objective PUL Vital signs: Last Vital Signs Temp 97.5 F L 02/26/19 07:15 Pulse 88 02/26/19 07:00 Resp 22 02/26/19 07:48 BP 115/61 02/26/19 07:00 Pulse Ox 100 02/26/19 07:48 Gen.: Elderly male. Sedated. Skin: Good turgor. No obvious facial rash Eyes: Moist. Anicteric Neck: Did not properly assess hepatojugular reflux or JVD secondary to obesity Cardiac: Regular rate and rhythm. At least 3/6 systolic murmur best heard over the pulmonic valve. Respiratory: Distant lung sounds. Grunting sounds present. On ventilator. GI: Distention with ventilator breaths. Seems to be soft otherwise Extremities: Capillary refill less than 2 seconds upper extremities bilaterally. Bilateral lower extremity edema pitting in the left but not in the right. Neuro: Eyes do not change position when eyelids opened. Patient is sedated Ventilator Settings Ventilator Settings: Ventilator Settings, Last 8 Hours Ventilator Tidal Volume 400 Setting Ventilator Tidal Volume 500 Setting Ventilator Tidal Volume 400 Setting Ventilator Tidal Volume 500 Setting Ventilator Tidal Volume 500 Setting Ventilator Tidal Volume 500 Setting Ventilator Tidal Volume 500 Setting Ventilator Tidal Volume 500 Setting Ventilator Respiratory Rate 18 Setting Ventilator Respiratory Rate 18 Setting Ventilator Respiratory Rate 18 Setting Ventilator Respiratory Rate 18 Setting Ventilator Respiratory Rate 18 Setting Ventilator Respiratory Rate 18 Setting Ventilator Respiratory Rate 18 Setting Ventilator Respiratory Rate 18 Setting Actual Respiratory Rate 22 Actual Respiratory Rate 22 Actual Respiratory Rate 21 Actual Respiratory Rate 22 Actual Respiratory Rate 21 Actual Respiratory Rate 21 Actual Respiratory Rate 21 Positive End Expiratory 15 Pressure Positive End Expiratory 15 Pressure Positive End Expiratory 15 Pressure Positive End Expiratory 15 Pressure Positive End Expiratory 15 Pressure Positive End Expiratory 15 Pressure Positive End Expiratory 15 Pressure Peak Inspiratory Airway 36 Pressure Peak Inspiratory Airway 33 Pressure Peak Inspiratory Airway 30 Pressure Peak Inspiratory Airway 19 Pressure Peak Inspiratory Airway 24 Pressure Peak Inspiratory Airway 30 Pressure Peak Inspiratory Airway 24 Pressure Results - Laboratory Findings CBC and BMP: 02/26/19 06:06 02/26/19 06:06 ABG ABG pH 7.20 pH Units (7.32-7.45) L* 02/26/19 05:42 ABG pCO2 50 mmHg (35-45) H 02/26/19 05:42 ABG pO2 154 mmHg (85-104) H 02/26/19 05:42 ABG O2 Saturation 99 % (95-98) H 02/26/19 05:42 PT/INR, D-dimer PT 13.5 Seconds (9.4-12.1) H 02/24/19 12:55 Abnormal lab findings: Abnormal lab results WBC 17.8 K/mcL (4.3-11.1) H 02/26/19 06:06 RBC 2.78 M/mcL (4.19-5.50) L 02/26/19 06:06 Hgb 7.6 g/dL (12.9-16.9) L 02/26/19 06:06 Hct 24.4 % (37.5-50.1) L 02/26/19 06:06 MCH 27.3 pg (28.0-33.3) L 02/26/19 06:06 MCHC 31.1 g/dL (31.6-35.5) L 02/26/19 06:06 RDW 17.8 % (11.5-14.5) H 02/26/19 06:06 Neutrophils # 16.7 K/mcL (1.6-8.9) H 02/26/19 06:06 Lymphocytes # 0.2 K/mcL (0.6-4.6) L 02/26/19 06:06 Monocytes # 1.5 K/mcL (0.0-1.3) H 02/25/19 02:22 PT 13.5 Seconds (9.4-12.1) H 02/24/19 12:55 ABG pH 7.20 pH Units (7.32-7.45) L* 02/26/19 05:42 ABG pCO2 50 mmHg (35-45) H 02/26/19 05:42 ABG pO2 154 mmHg (85-104) H 02/26/19 05:42 ABG HCO3 20 mEq/L (21-27) L 02/26/19 05:42 ABG O2 Saturation 99 % (95-98) H 02/26/19 05:42 ABG Base Excess -8 mEq/L (-2 to 3) L 02/26/19 05:42 VBG pCO2 28 mmHg (41-51) L 02/23/19 09:26 VBG pO2 131 mmHg (25-50) H 02/23/19 09:26 VBG HCO3 18 mEq/L (21-27) L 02/23/19 09:26 Sodium 127 mEq/L (136-145) L 02/26/19 06:06 Potassium 5.4 mEq/L (3.5-5.1) H 02/23/19 16:40 Chloride 94 mEq/L (98-107) L 02/26/19 06:06 Carbon Dioxide 19 mEq/L (23-29) L 02/26/19 06:06 BUN 60 mg/dL (8-23) H 02/26/19 06:06 Creatinine 3.06 mg/dL (0.70-1.30) H 02/26/19 06:06 Est GFR ( Amer) 25 (> 60) L 02/26/19 06:06 Est GFR (Non-Af Amer) 21 (> 60) L 02/26/19 06:06 Glucose 270 mg/dL (70-105) H 02/26/19 06:06 POC Glucose 231 mg/dL (70-99) H 02/25/19 20:51 Serum Osmolality 275 mOsm/kg (280-300) L 02/23/19 11:07 Calculated Osmolality 262 (280-300) L 02/24/19 03:35 Calcium 8.0 mg/dL (8.6-10.3) L 02/26/19 06:06 B-Natriuretic Peptide 633 pg/mL (Less than 100) H 02/22/19 10:13 Urine Osmolality 189 mOsm/kg (300-1090) L 02/23/19 12:42 Nasal Screen MRSA (PCR) DETECTED (Not Detect) A 02/23/19 12:26 Vancomycin Trough 21 mcg/mL (5-10) H 02/24/19 09:38 - Clinical Findings Intake & Output: Intake & Output 02/25/19 02/26/19 02/26/19 23:59 07:59 15:59 Intake Total 220 / 720 300.0 / 300.0 Output Total 475 / 1125 235 / 235 Balance -255 / -405 65.0 / 65.0 Weight 124.3 kg
[2019-02-26] MEDS: Insulin LISPRO 300 UNITS/3 ML VIAL SQ SCH ×4 (09:18→20:25)
[2019-02-26] MEDS: Insulin DETEMIR 100 UNIT/ML X5UNITS SQ SCH (09:18)
[2019-02-26] MEDS: Dexmedetomidine HCl 400 MCG/100 ML MLS IVC SCH ×3 (09:56→17:44)
[2019-02-26 11:42] LABS: ABG Base Excess -9 mEq/L (-2 to 3); ABG HCO3 20 mEq/L (21-27); ABG Oxygen Saturation 90 % (95-98); ABG PCO2 53 mmHg (35-45); ABG PH 7.19 pH Units (7.32-7.45); ABG PO2 72 mmHg (85-104); ABG TCO2 22 mEq/L (20-26); Blood Gas Modality ASSIST CONTROL; Blood Gas PEEP 15 cm H2O; Blood Gas VT 500 cc
[2019-02-26] MEDS ORDERED: Bumetanide 1 MG/4 ML VIAL IVP SCH (11:44)
--- NOTE | 2019-02-26 12:49 | Electrocardiograph Report ---
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
[2019-02-26 15:36] LABS: ABG Base Excess -7 mEq/L (-2 to 3); ABG HCO3 20 mEq/L (21-27); ABG Oxygen Saturation 100 % (95-98); ABG PCO2 48 mmHg (35-45); ABG PH 7.24 pH Units (7.32-7.45); ABG PO2 370 mmHg (85-104); ABG TCO2 22 mEq/L (20-26); Blood Gas Modality ASSIST CONTROL; Blood Gas PEEP 15 cm H2O; Blood Gas VT 500 cc
--- NOTE | 2019-02-26 16:14 | Electrocardiograph Report ---
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
--- NOTE | 2019-02-26 16:25 | Electrocardiograph Report ---
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
[2019-02-26 16:30] LABS: Bilirubin,Urine Negative (Negative); Blood,Urine Moderate (Negative); Clarity,Urine Cloudy (Clear); Color,Urine Yellow (Yellow); Glucose,Urine (UA) Normal (Normal); Ketones,Urine Negative (Negative); Leukocyte Esterase,Urine Large (Negative); Nitrite,Urine Negative (Negative); Protein,Urine 30 mg/dL (Neg-Trace); Specific Gravity,Urine 1.011 (1.010-1.025); Urobilinogen,Urine Normal (Normal)
[2019-02-26 16:32] LABS: Bacteria,Urine None Seen per hpf (None-Few); Hyaline Casts,Urine None Seen per lpf (None-Few); Squamous Epithelial Cell,Urine Moderate per lpf (None-Few); WBC,Urine TNTC per hpf (0-3)
[2019-02-26] MEDS ORDERED: Vancomycin 500 MG in 0.9 % Sodium Chloride Mini Bag 100 ML IVPB ONE (17:00)
--- NOTE | 2019-02-26 17:42 | Nephrology Progress Note ---
Date of Encounter: 02/26/19 Time of Encounter: 12:00 - Assessment and Plan (1) Hyponatremia Status: Resolved Sodium slightly improved at 127 Urine osm consistent with polydipsia, appropriately low. continue fluid restriction, advised with pt educated Continue salt tabs for now (2) Hyperkalemia Status: Resolved Resolved s/p kayexalate, now at 4.3 Continue renal diet (3) Hospital-acquired pneumonia Status: Suspected Continue abx per primary but must dose vanco renally Continue to hold vanco for trough of above 15 and monitor levels daily (4) ERICK (acute kidney injury) Status: Acute SCr noted at 3.06, GFR 21, worsening in the setting of sepsis, vanco and diuretics Continue lasix 40mg daily for now Continue to avoid nephrotoxins if possible Subjective Interval history: Pt seen and examined Objective - Vital Signs Vital signs: Vital Signs Temp Pulse Resp BP Pulse Ox 02/26/19 17:00 80 24 111/52 100 02/26/19 16:00 82 24 110/52 100 02/26/19 15:49 84 02/26/19 15:44 97.7 F 02/26/19 15:30 24 112/53 100 02/26/19 15:00 83 24 113/59 100 02/26/19 14:00 84 24 115/53 100 02/26/19 13:20 24 112/55 100 02/26/19 13:00 85 24 112/55 100 02/26/19 12:00 83 24 99/55 100 02/26/19 11:57 91 02/26/19 11:07 19 111/55 99 02/26/19 11:00 85 19 104/51 100 02/26/19 10:00 89 25 116/56 100 02/26/19 09:30 21 113/51 98 02/26/19 09:00 92 25 114/54 100 02/26/19 08:00 91 22 121/53 100 02/26/19 07:48 22 100 02/26/19 07:15 97.5 F L 02/26/19 07:00 88 22 115/61 100 02/26/19 06:00 90 24 110/59 100 02/26/19 05:00 91 21 119/59 100 02/26/19 04:00 98.4 F 93 22 113/54 99 02/26/19 03:15 21 107/54 98 02/26/19 03:00 88 21 107/54 97 02/26/19 02:00 89 21 112/57 97 02/26/19 01:00 91 22 114/52 96 02/26/19 00:00 99.3 F 93 23 115/57 98 02/25/19 23:44 21 115/58 98 02/25/19 23:00 86 24 113/55 96 02/25/19 22:00 85 21 118/65 92 02/25/19 21:35 22 119/63 88 02/25/19 21:00 77 23 118/65 89 02/25/19 20:00 96.8 F L 80 23 114/79 89 02/25/19 19:34 23 118/67 88 02/25/19 19:00 67 23 107/71 88 02/25/19 18:01 69 15 121/71 80 Intake and Output 02/26/19 02/26/19 02/26/19 07:59 15:59 23:59 Intake Total 300.0 / 720.0 389 / 720.0 31 / 720.0 Output Total 235 / 605 325 / 605 45 / 605 Balance 65.0 / 115.0 64 / 115.0 -14 / 115.0 Intake: IV Fluids 300.0 / 720.0 389 / 720.0 31 / 720.0 Precedex Premix 400 mcg In 100 76 / 107 31 / 107 ml @ 0.1 MCG/KG/HR 3.108 mls/hr IVC .Q24H JIMMY Rx#:[id number] FentaNYL (PF) 1,000 MCG In 0.9 100.0 / 200.0 100 / 200.0 % Sodium Chloride 80 ML @ 50 MCG/HR 5 mls/hr IVC CONT JIMMY Rx #:[id number] Versed 50 MG In 0.9 % Sodium 105 / 105 Chloride 90 ML @ 5 MG/HR 10 mls /hr IVC CONT JIMMY Rx#:[id number] Diprivan 1,000 mg In 100 ml @ 5 200 / 288 88 / 288 MCG/KG/MIN 3.87 mls/hr IVC . Q24H JIMMY Rx#:[id number] Maxipime 2,000 MG In Water for 20 / 20 inj. (sterile) 20 ML @ 300 mls/ hr IVP BID JIMMY Rx#:[id number] Output: Catheter 185 / 355 125 / 355 45 / 355 Gastric Drainage 50 / 250 200 / 250 Other: Weight 124.3 kg Blood Glucose* 323 Patient Weight 02/26/19 23:59 Weight 124.3 kg - General Appearance General appearance: Present: chronically ill EENT: Present: ATNC, mucous membranes moist Neck: Present: no JVD, supple Respiratory: Present: course breath sounds Cardiology: Present: edema (LE bilat), normal S1, normal S2 Gastrointestinal: Present: no tenderness, no guarding Integumentary: Present: warm and dry Neurologic: Present: no focal deficit Musculoskeletal: Present: no deformities Psychiatric: Present: mood/affect appropriate - Lab 03/08/19 01:33 03/08/19 01:33 Most recent lab results 02/26/19 02/26/19 02/26/19 05:42 06:06 11:33 ABG pH 7.20 L* 7.19 L* ABG pCO2 50 H 53 H ABG pO2 154 H 72 L D ABG HCO3 20 L 20 L ABG O2 Saturation 99 H 90 L Calcium 8.0 L 02/26/19 15:31 ABG pH 7.24 L ABG pCO2 48 H ABG pO2 370 H D ABG HCO3 20 L ABG O2 Saturation 100 H Calcium Consult Discharge Plan - Plan Instructions: Heart Healthy Diet (DC), Fluid Restriction (DC), Pneumonia (DC) Additional Instructions: Daily wound care to right foot, calcium alginate, 4x4 and kerlix. NWB right lower extremity. Referrals: Myron Henderson [Primary Care Provider] -
[2019-02-26 17:47] LABS: RBC,Urine 30-50 per hpf (0-3)
[2019-02-26] MEDS: *HR* LORazepam 0.5 MG TABLET PO SCH (21:12)
[2019-02-27] MEDS: FentaNYL (PF) 1,000 MCG in 0.9 % Sodium Chloride 80 ML IVC SCH ×2 (02:05→14:14)
[2019-02-27] MEDS: Artificial Tears SOLN 15 ML BOTTLE BOTH EYES SCH ×6 (02:53→23:17)
[2019-02-27] MEDS: Ipratropium/Albuterol Neb 3 ML IH SCH ×6 (03:14→23:09)
[2019-02-27] MEDS: Dexmedetomidine HCl 400 MCG/100 ML MLS IVC SCH ×2 (04:30→08:46)
[2019-02-27 05:06] LABS: ABG Base Excess -7 mEq/L (-2 to 3); ABG HCO3 20 mEq/L (21-27); ABG Oxygen Saturation 100 % (95-98); ABG PCO2 43 mmHg (35-45); ABG PH 7.27 pH Units (7.32-7.45); ABG PO2 445 mmHg (85-104); ABG TCO2 21 mEq/L (20-26); Blood Gas PEEP 15 cm H2O; Blood Gas VT 500 cc
[2019-02-27] MEDS: *HR* Heparin 5,000 UNIT/ML VIAL SQ SCH ×3 (05:46→20:43)
--- NOTE | 2019-02-27 06:46 | Pulmonology Progress Note ---
<Lefty Sanchez - Last Filed: 02/27/19 09:26> Date of Encounter: 02/27/19 Time of Encounter: 06:34 Assessment and Plan (1) Encephalopathy Current Visit: Yes Status: Suspected -Consider secondary to uremia -CKD IV not on dialysis -Patient on sedation medications -BUN and creatinine continued to rise Plan: Will likely need dialysis. Await nephrology recommendations (2) Acute and chronic respiratory failure with hypoxia Current Visit: Yes Status: Acute -likely due to infectious pneumonia vs. heart failure with preserved ejection fraction -Will defer CTA at this point as disease process more likely explained by other etiology and risk/benefit correlation in the setting of ERICK on CKD. -Failed BiPAP therapy. Intubated 02/25/19. -ABG 02/27/19: Continued respiratory acidosis and metabolic alkalosis with concomitant metabolic acidosis. Plan: Sedation with Dexmedetomidine, fentanyl, propofol . Vent: Rate 24, FiO2 80, PEEP 15, TV 500. DuoNeb's. Symbicort. Solu-Medrol every 8 hours. Goal to decrease FiO2 as PaO2 markedly elevated on blood gas. (3) Respiratory acidosis Current Visit: Yes Status: Acute -ABG as above Plan: Continue optimization of ventilation settings. (4) Pleural effusion Current Visit: No Status: Suspected -Suspected bilateral -Somewhat blunted costophrenic angles on CXR 02/26/19 -Continue to stabilize patient's respiratory status (5) Hospital-acquired pneumonia Current Visit: Yes Status: Suspected Plan as below (6) COPD (chronic obstructive pulmonary disease) Current Visit: Yes Status: Acute -Medications for acute respiratory failure as above. Do not suspect over COPD exacerbation at this point as clinical picture points more towards heart failure. -Continue to monitor Qualifiers: COPD type: unspecified COPD Qualified Code(s): J44.9 - Chronic obstructive pulmonary disease, unspecified (7) Acute on chronic diastolic (congestive) heart failure Current Visit: No Status: Suspected -Consider 2/2 infectious process -Patient admits baseline orthopnea, PND, leg swelling. Recent increased dyspnea -Troponin negative -BNP 611 -TSH WNL; A1c 04/10/18 7.6 -CXR 02/23/19 shows stable cardiomegaly -Echo 01/05/19: Suboptimal. LVEF 55%. Indeterminant diastolic function. Grossly mildly dilated right ventricle with normal function. Mild aortic stenosis. Mild pulmonary hypertension -Echo 02/26/19: Left ventricular ejection fraction 60%. Indeterminant diastolic function. Mild to moderate aortic stenosis, mild mitral regurg, mild tricuspid regurg. Borderline pulmonary hypertension. Plan: Metoprolol succinate, aspirin, isosorbide mononitrate, atorvastatin. No DARSHAN inhibitor secondary to CKD. increase diuresis with 2 mg Bumex IV. Hold home furosemide. (8) Atrial fibrillation Current Visit: No Status: Chronic -Chronic -Metoprolol rate control has been adequate Qualifiers: Atrial fibrillation type: chronic Qualified Code(s): I48.2 - Chronic atrial fibrillation (9) Hypertension Current Visit: No Status: Chronic -Chronic, stable -Continue to monitor Qualifiers: Hypertension type: essential hypertension Qualified Code(s): I10 - Essential (primary) hypertension (10) High anion gap metabolic acidosis Current Visit: Yes Status: Acute Background -Consider 2/2 uremia -Lactic acid within normal limits. Lab -ABG: As above Plan: Repeat ABG. Nephrology following. (11) Metabolic alkalosis Current Visit: Yes Status: Acute Background -Consider due to initiation: diuresis, post-resp. acidosis // maintenance: Volume depletion. Also chronic compensation for COPD S/Sx -Good skin turgor over sternum, lower extremity edema as above Lab -ABG: As above Plan: Consider Urine Cl level. Continue to monitor (12) Hyponatremia Current Visit: No Status: Acute -Acute on chronic -Searching for cause. Consider secondary to fluid overload state from heart failure with preserved ejection fraction. - 112 at the lowest. Recently in the 120s. -Urine sodium 16.1, urine creatinine 33, urine osmolality low at 189. Will likely need repeat of these values after saline therapy. Consider some component of SIADH or glucocorticoid deficiency. -Nephrology is favoring component of polydipsia. Appreciate their recomm endations Plan: PICC placed if needed. Improving. Salt tablets 1 g twice a day. (13) Hyperkalemia Current Visit: Yes Status: Resolved -Consider secondary to ERICK on CKD versus hypoaldosteronism -EKG 02/23/19: showed no peaked T waves. sinus rhythm. HR 70. no ST or T waves changes indicating ischemia. -Resolved after Kayexalate therapy. plan: Nephrology consulted. Continue to monitor (14) Acute kidney injury superimposed on CKD Current Visit: Yes Status: Acute -CKD stage IV -Consider secondary to cardiorenal syndrome -BUN/creatinine continued to worsen. Will likely need dialysis therapy. Plan: No DARSHAN inhibitor. Bumex as above. Nephrology consulted. (15) Sepsis Current Visit: No Status: Acute -Possibly secondary to hospital-acquired pneumonia versus chronic wound of right lower extremity -SIRS 2 out of 4: temp stable, pulse 105 on arrival, rr 20 on arrival, WBC within normal limits -lactic acid within normal limits -blood cultures 02/22/19 x2 NTD and pending. -Pro calcitonin within normal limits. Legionella and Streptococcus pneumonia antigens negative. -CXR 02/22/19: Read as likely multifocal pneumonia versus pulmonary edema -CXR 02/26/19: Read as showing worsening diffuse airspace disease. -Repeat pro calcitonin elevated. Plan: Continue vancomycin day 3, cefepime day 2. Await final results of blood culture. sputum culture pending. Qualifiers: Qualified Code(s): A41.9 - Sepsis, unspecified organism (16) Abscess of right foot Current Visit: No Status: Acute -Continue to monitor as concern for sepsis (17) Diabetes mellitus Current Visit: No Status: Chronic -Recent glucose levels elevated Plan: Short acting insulin changed to every 6 hours. continue to monitor. 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 Will plan to optimize ventilator settings today as PaO2 was markedly elevated. Bumex increased to 2 g. Objective PUL Vital signs: Last Vital Signs Temp 97.8 F 02/27/19 04:31 Pulse 90 02/27/19 06:00 Resp 26 02/27/19 06:00 BP 124/53 02/27/19 06:00 Pulse Ox 100 02/27/19 06:00 Gen.: Middle-aged male. Sedated Skin: Good skin turgor per sternum. Forehead results complicated by ventilator mask. No obvious facial rash. Eyes: Do not move upon mechanical opening of eyelids. Moist. Nonicteric Cardiac: Irregular rate. Non-tachycardic according to monitor. 3/ systolic murmur best heard over pulmonic post. Respiratory: CTA anteriorly. On ventilator. Abdomen: Obese. Nondistended. Bowel sounds auscultated Extremities: Pitting edema to knee bilateral lower extremities. Capillary refill less than 2 seconds upper extremities bilaterally Neuro: Jluis sedation 6. Drips: Currently on Precedex, fentanyl, propofol Lines: Left upper extremity peripheral. PICC right upper extremity. Christensen. OG tube. Ventilator. Ventilator Settings Ventilator Settings: Ventilator Settings, Last 8 Hours Ventilator Tidal Volume 500 Setting Ventilator Tidal Volume 500 Setting Ventilator Tidal Volume 500 Setting Ventilator Tidal Volume 500 Setting Ventilator Tidal Volume 500 Setting Ventilator Tidal Volume 500 Setting Ventilator Tidal Volume 500 Setting Ventilator Tidal Volume 500 Setting Ventilator Tidal Volume 500 Setting Ventilator Tidal Volume 500 Setting Ventilator Tidal Volume 500 Setting Ventilator Tidal Volume 500 Setting Ventilator Tidal Volume 500 Setting Ventilator Respiratory Rate 24 Setting Ventilator Respiratory Rate 24 Setting Ventilator Respiratory Rate 24 Setting Ventilator Respiratory Rate 24 Setting Ventilator Respiratory Rate 24 Setting Ventilator Respiratory Rate 24 Setting Ventilator Respiratory Rate 24 Setting Ventilator Respiratory Rate 24 Setting Ventilator Respiratory Rate 24 Setting Ventilator Respiratory Rate 24 Setting Ventilator Respiratory Rate 24 Setting Ventilator Respiratory Rate 24 Setting Ventilator Respiratory Rate 24 Setting Actual Respiratory Rate 26 Actual Respiratory Rate 24 Actual Respiratory Rate 27 Actual Respiratory Rate 27 Actual Respiratory Rate 24 Actual Respiratory Rate 24 Actual Respiratory Rate 24 Actual Respiratory Rate 24 Actual Respiratory Rate 24 Actual Respiratory Rate 24 Actual Respiratory Rate 24 Actual Respiratory Rate 24 Positive End Expiratory 15 Pressure Positive End Expiratory 15 Pressure Positive End Expiratory 15 Pressure Positive End Expiratory 15 Pressure Positive End Expiratory 15 Pressure Positive End Expiratory 15 Pressure Positive End Expiratory 15 Pressure Positive End Expiratory 15 Pressure Positive End Expiratory 15 Pressure Positive End Expiratory 15 Pressure Positive End Expiratory 15 Pressure Positive End Expiratory 15 Pressure Positive End Expiratory 15 Pressure Peak Inspiratory Airway 36 Pressure Peak Inspiratory Airway 36 Pressure Peak Inspiratory Airway 36 Pressure Peak Inspiratory Airway 36 Pressure Peak Inspiratory Airway 36 Pressure Peak Inspiratory Airway 35 Pressure Peak Inspiratory Airway 36 Pressure Peak Inspiratory Airway 34 Pressure Peak Inspiratory Airway 36 Pressure Peak Inspiratory Airway 35 Pressure Peak Inspiratory Airway 35 Pressure Peak Inspiratory Airway 34 Pressure Results - Laboratory Findings CBC and BMP: 02/27/19 06:38 02/27/19 06:38 ABG ABG pH 7.27 pH Units (7.32-7.45) L 02/27/19 05:02 ABG pCO2 43 mmHg (35-45) 02/27/19 05:02 ABG pO2 445 mmHg (85-104) H 02/27/19 05:02 ABG O2 Saturation 100 % (95-98) H 02/27/19 05:02 PT/INR, D-dimer PT 13.5 Seconds (9.4-12.1) H 02/24/19 12:55 Abnormal lab findings: Abnormal lab results WBC 17.8 K/mcL (4.3-11.1) H 02/26/19 06:06 RBC 2.78 M/mcL (4.19-5.50) L 02/26/19 06:06 Hgb 7.6 g/dL (12.9-16.9) L 02/26/19 06:06 Hct 24.4 % (37.5-50.1) L 02/26/19 06:06 MCH 27.3 pg (28.0-33.3) L 02/26/19 06:06 MCHC 31.1 g/dL (31.6-35.5) L 02/26/19 06:06 RDW 17.8 % (11.5-14.5) H 02/26/19 06:06 Neutrophils # 16.7 K/mcL (1.6-8.9) H 02/26/19 06:06 Lymphocytes # 0.2 K/mcL (0.6-4.6) L 02/26/19 06:06 Monocytes # 1.5 K/mcL (0.0-1.3) H 02/25/19 02:22 PT 13.5 Seconds (9.4-12.1) H 02/24/19 12:55 ABG pH 7.27 pH Units (7.32-7.45) L 02/27/19 05:02 ABG pCO2 48 mmHg (35-45) H 02/26/19 15:31 ABG pO2 445 mmHg (85-104) H 02/27/19 05:02 ABG HCO3 20 mEq/L (21-27) L 02/27/19 05:02 ABG O2 Saturation 100 % (95-98) H 02/27/19 05:02 ABG Base Excess -7 mEq/L (-2 to 3) L 02/27/19 05:02 VBG pCO2 28 mmHg (41-51) L 02/23/19 09:26 VBG pO2 131 mmHg (25-50) H 02/23/19 09:26 VBG HCO3 18 mEq/L (21-27) L 02/23/19 09:26 Sodium 127 mEq/L (136-145) L 02/26/19 06:06 Potassium 5.4 mEq/L (3.5-5.1) H 02/23/19 16:40 Chloride 94 mEq/L (98-107) L 02/26/19 06:06 Carbon Dioxide 19 mEq/L (23-29) L 02/26/19 06:06 BUN 60 mg/dL (8-23) H 02/26/19 06:06 Creatinine 3.06 mg/dL (0.70-1.30) H 02/26/19 06:06 Est GFR ( Amer) 25 (> 60) L 02/26/19 06:06 Est GFR (Non-Af Amer) 21 (> 60) L 02/26/19 06:06 Glucose 270 mg/dL (70-105) H 02/26/19 06:06 POC Glucose 291 mg/dL (70-99) H 02/27/19 05:15 Serum Osmolality 275 mOsm/kg (280-300) L 02/23/19 11:07 Calculated Osmolality 262 (280-300) L 02/24/19 03:35 Calcium 8.0 mg/dL (8.6-10.3) L 02/26/19 06:06 B-Natriuretic Peptide 633 pg/mL (Less than 100) H 02/22/19 10:13 Procalcitonin 1.33 ng/mL (0.00-0.15) H 02/26/19 14:10 Urine Clarity Cloudy (Clear) A 02/26/19 16:00 Urine Protein 30 mg/dL (Neg-Trace) H 02/26/19 16:00 Urine Blood Moderate (Negative) H 02/26/19 16:00 Ur Leukocyte Esterase Large (Negative) H 02/26/19 16:00 Urine Microscopic RBC 30-50 per hpf (0-3) H 02/26/19 16:00 Urine Microscopic WBC TNTC per hpf (0-3) H 02/26/19 16:00 Ur Squamous Epith Cells Moderate per lpf (None-Few) H 02/26/19 16:00 Ur Culture Indicated? YES (NO) A 02/26/19 16:00 Urine Osmolality 189 mOsm/kg (300-1090) L 02/23/19 12:42 Nasal Screen MRSA (PCR) DETECTED (Not Detect) A 02/23/19 12:26 Vancomycin Trough 21 mcg/mL (5-10) H 02/24/19 09:38 - Microbiology Findings Microbiology Findings: Microbiology, Last 48 Hours 02/26/19 16:00 Urine Culture - Preliminary Urine,Clean Catch Culture is incubating. - Clinical Findings Intake & Output: Intake & Output 02/26/19 02/26/19 02/27/19 15:59 23:59 07:59 Intake Total 389 / 1115.0 426 / 1115.0 400 / 400 Output Total 325 / 1180 620 / 1180 350 / 350 Balance 64 / -65.0 -194 / -65.0 50 / 50 Consult Discharge Plan - Plan Referrals: Myron Henderson [Primary Care Provider] - <Jesu Harrison W - Last Filed: 02/27/19 10:35> Date of Encounter: 02/27/19 Objective PUL Vital signs: Last Vital Signs Temp 97.7 F 02/27/19 08:24 Pulse 90 02/27/19 07:00 Resp 24 02/27/19 07:00 BP 123/54 02/27/19 07:00 Pulse Ox 100 02/27/19 07:00 Ventilator Settings Ventilator Settings: Ventilator Settings, Last 8 Hours Ventilator Tidal Volume 500 Setting Ventilator Tidal Volume 500 Setting Ventilator Tidal Volume 500 Setting Ventilator Tidal Volume 500 Setting Ventilator Tidal Volume 500 Setting Ventilator Tidal Volume 500 Setting Ventilator Tidal Volume 500 Setting Ventilator Tidal Volume 500 Setting Ventilator Tidal Volume 500 Setting Ventilator Tidal Volume 500 Setting Ventilator Respiratory Rate 24 Setting Ventilator Respiratory Rate 24 Setting Ventilator Respiratory Rate 24 Setting Ventilator Respiratory Rate 24 Setting Ventilator Respiratory Rate 24 Setting Ventilator Respiratory Rate 24 Setting Ventilator Respiratory Rate 24 Setting Ventilator Respiratory Rate 24 Setting Ventilator Respiratory Rate 24 Setting Ventilator Respiratory Rate 24 Setting Actual Respiratory Rate 24 Actual Respiratory Rate 26 Actual Respiratory Rate 24 Actual Respiratory Rate 27 Actual Respiratory Rate 27 Actual Respiratory Rate 24 Actual Respiratory Rate 24 Actual Respiratory Rate 24 Actual Respiratory Rate 24 Positive End Expiratory 15 Pressure Positive End Expiratory 15 Pressure Positive End Expiratory 15 Pressure Positive End Expiratory 15 Pressure Positive End Expiratory 15 Pressure Positive End Expiratory 15 Pressure Positive End Expiratory 15 Pressure Positive End Expiratory 15 Pressure Positive End Expiratory 15 Pressure Positive End Expiratory 15 Pressure Peak Inspiratory Airway 37 Pressure Peak Inspiratory Airway 36 Pressure Peak Inspiratory Airway 36 Pressure Peak Inspiratory Airway 36 Pressure Peak Inspiratory Airway 36 Pressure Peak Inspiratory Airway 36 Pressure Peak Inspiratory Airway 35 Pressure Peak Inspiratory Airway 36 Pressure Peak Inspiratory Airway 34 Pressure Results - Laboratory Findings CBC and BMP: 02/27/19 06:38 02/27/19 06:38 ABG ABG pH 7.27 pH Units (7.32-7.45) L 02/27/19 05:02 ABG pCO2 43 mmHg (35-45) 02/27/19 05:02 ABG pO2 445 mmHg (85-104) H 02/27/19 05:02 ABG O2 Saturation 100 % (95-98) H 02/27/19 05:02 PT/INR, D-dimer PT 13.5 Seconds (9.4-12.1) H 02/24/19 12:55 Abnormal lab findings: Abnormal lab results WBC 11.3 K/mcL (4.3-11.1) H 02/27/19 06:38 RBC 2.82 M/mcL (4.19-5.50) L 02/27/19 06:38 Hgb 7.7 g/dL (12.9-16.9) L 02/27/19 06:38 Hct 24.4 % (37.5-50.1) L 02/27/19 06:38 MCH 27.3 pg (28.0-33.3) L 02/27/19 06:38 MCHC 31.1 g/dL (31.6-35.5) L 02/26/19 06:06 RDW 17.5 % (11.5-14.5) H 02/27/19 06:38 MPV 12.5 fL (9.4-12.4) H 02/27/19 06:38 Neutrophils # 10.4 K/mcL (1.6-8.9) H 02/27/19 06:38 Lymphocytes # 0.2 K/mcL (0.6-4.6) L 02/27/19 06:38 Monocytes # 1.5 K/mcL (0.0-1.3) H 02/25/19 02:22 PT 13.5 Seconds (9.4-12.1) H 02/24/19 12:55 ABG pH 7.27 pH Units (7.32-7.45) L 02/27/19 05:02 ABG pCO2 48 mmHg (35-45) H 02/26/19 15:31 ABG pO2 445 mmHg (85-104) H 02/27/19 05:02 ABG HCO3 20 mEq/L (21-27) L 02/27/19 05:02 ABG O2 Saturation 100 % (95-98) H 02/27/19 05:02 ABG Base Excess -7 mEq/L (-2 to 3) L 02/27/19 05:02 VBG pCO2 28 mmHg (41-51) L 02/23/19 09:26 VBG pO2 131 mmHg (25-50) H 02/23/19 09:26 VBG HCO3 18 mEq/L (21-27) L 02/23/19 09:26 Sodium 129 mEq/L (136-145) L 02/27/19 06:38 Potassium 5.4 mEq/L (3.5-5.1) H 02/23/19 16:40 Chloride 96 mEq/L (98-107) L 02/27/19 06:38 Carbon Dioxide 17 mEq/L (23-29) L 02/27/19 06:38 BUN 72 mg/dL (8-23) H 02/27/19 06:38 Creatinine 3.26 mg/dL (0.70-1.30) H 02/27/19 06:38 Est GFR ( Amer) 23 (> 60) L 02/27/19 06:38 Est GFR (Non-Af Amer) 19 (> 60) L 02/27/19 06:38 Glucose 289 mg/dL (70-105) H 02/27/19 06:38 POC Glucose 291 mg/dL (70-99) H 02/27/19 05:15 Serum Osmolality 275 mOsm/kg (280-300) L 02/23/19 11:07 Calculated Osmolality 262 (280-300) L 02/24/19 03:35 Calcium 7.8 mg/dL (8.6-10.3) L 02/27/19 06:38 B-Natriuretic Peptide 633 pg/mL (Less than 100) H 02/22/19 10:13 Procalcitonin 1.33 ng/mL (0.00-0.15) H 02/26/19 14:10 Urine Clarity Cloudy (Clear) A 02/26/19 16:00 Urine Protein 30 mg/dL (Neg-Trace) H 02/26/19 16:00 Urine Blood Moderate (Negative) H 02/26/19 16:00 Ur Leukocyte Esterase Large (Negative) H 02/26/19 16:00 Urine Microscopic RBC 30-50 per hpf (0-3) H 02/26/19 16:00 Urine Microscopic WBC TNTC per hpf (0-3) H 02/26/19 16:00 Ur Squamous Epith Cells Moderate per lpf (None-Few) H 02/26/19 16:00 Ur Culture Indicated? YES (NO) A 02/26/19 16:00 Urine Osmolality 189 mOsm/kg (300-1090) L 02/23/19 12:42 Nasal Screen MRSA (PCR) DETECTED (Not Detect) A 02/23/19 12:26 Vancomycin Trough 21 mcg/mL (5-10) H 02/24/19 09:38 - Microbiology Findings Microbiology Findings: Microbiology, Last 48 Hours 02/26/19 16:00 Urine Culture - Preliminary Urine,Clean Catch Culture is incubating. - Clinical Findings Intake & Output: Intake & Output 02/26/19 02/27/19 02/27/19 23:59 07:59 15:59 Intake Total 426 / 1115.0 400 / 600 200 / 600 Output Total 620 / 1180 350 / 625 275 / 625 Balance -194 / -65.0 50 / -25 -75 / -25 - Attending Attestation I examined this patient and my medical decision-making was reviewed with the Resident Physician. I agree with the documented findings, disposition and treatm ent plan as described except to the extent set forth below. We independently had [id number] contact with the patient I spent 33min of Critical Care time with this patient. It involved decision ma shai of high complexity to assess, manipulate, and support vital organ system failure and/or to prevent further life threatening deterioration of the patient's condition. The time involved in the performance of separately reportable procedures was not counted toward critical care time. Patient seen and examined at bedside Labs, radiology, chart personally reviewed. Management was reviewed during multidisciplinary critical care rounds. LEGAL MANAGER: Deeply sedated for vent mgnt. Pulm: remains on vent. Acceptable pressures. cont LTV strategy suspected hydrostatic edema ?PNA. still with high vent requirements. decreased PEEP to 12 today and Fio2 to 60% Mixed acidosis with respiratory component improving. Not a candidate for SBT today. Cards: BP monitored and stable GI:GI prophylaxis given Nutrition: NPO for now Renal: Low UOP wtih ERICK/CKD. Agreesive diuretic challenge today. likely will need COMPENSATION INTERN if no improvient. Apprecaite Nephro Consult. UOP Monitored, Cont to Trend sCr and monitor Electrolytes. ID: Treating for possible PNA Procalcitonin >1 Heme/Onc: DVT prophylaxiis given Endo: Glucose Monitored Integ/MSK: Skin Care per routine ICU Nursing Protocol to prevent ulcers. Lines: All lines examined without evidence of infection : Dispo: Criticall Ill CODE: Full Code. Palliative Care consult for mutliple admissions for respiratory with vent requirement and chronic medical comorbid conditions
[2019-02-27 07:14] LABS: Basophils % 0.1 %; Hematocrit 24.4 % (37.5-50.1); Hemoglobin 7.7 g/dL (12.9-16.9); Immature Granulocytes % 1.5 % (0-4); Lymphocytes # 0.2 K/mcL (0.6-4.6); Lymphocytes % 1.9 %; Mean Corpuscular HGB Conc 31.6 g/dL (31.6-35.5); Mean Corpuscular Hemoglobin 27.3 pg (28.0-33.3); Mean Corpuscular Volume 86.5 fL (83.0-100.0); Mean Platelet Volume 12.5 fL (9.4-12.4); Monocytes # 0.5 K/mcL (0.0-1.3); Monocytes % 4.3 %; Neutrophils # 10.4 K/mcL (1.6-8.9); Platelet Count 196 K/mcL (140-400); Red Blood Count 2.82 M/mcL (4.19-5.50); Red Cell Distribution Width 17.5 % (11.5-14.5); Segmented Neutrophils % 92.2 %; White Blood Count 11.3 K/mcL (4.3-11.1)
[2019-02-27 07:34] LABS: Calcium 7.8 mg/dL (8.6-10.3)
[2019-02-27] MEDS: Budesonide/Formoterol 160/4.5 1 PUFF INH IH SCH ×2 (07:36→19:37)
[2019-02-27] MEDS: Multivit/Ca/Min/Fe/FA 1 TAB TABLET PO SCH (08:45)
[2019-02-27] MEDS: MethylPREDNISolone 40 MG/ML VIAL IVP SCH ×3 (08:45→23:17)
[2019-02-27] MEDS: Folic Acid 1 MG TABLET PO SCH (08:45)
[2019-02-27] MEDS: Pantoprazole 40 MG VIAL IVP SCH (08:45)
[2019-02-27] MEDS: Cefepime HCl 2,000 MG in Water for inj. (sterile) 20 ML IVP SCH (08:45)
[2019-02-27] MEDS: amLODIPine 5 MG TABLET PO SCH (08:45)
[2019-02-27] MEDS: Metoprolol XL (24 HR) Succ 50 MG TAB.ER.24H PO SCH (08:46)
[2019-02-27] MEDS: Magnesium Oxide 400 MG TABLET PO SCH (08:46)
[2019-02-27] MEDS: Insulin DETEMIR 100 UNIT/ML X5UNITS SQ SCH (08:46)
[2019-02-27] MEDS: Loratadine 10 MG TABLET PO SCH (08:46)
[2019-02-27] MEDS: Chlorhexidine Rinse 15 ML MOUTHWASH MM SCH ×2 (08:46→20:43)
[2019-02-27] MEDS: Aspirin Enteric Coated 81 MG Tablet PO SCH (08:47)
[2019-02-27] MEDS: FLUoxetine 20 MG CAPSULE PO SCH (08:48)
[2019-02-27] MEDS ORDERED: Bumetanide 1 MG/4 ML VIAL IVP SCH (09:00)
[2019-02-27] MEDS ORDERED: Insulin LISPRO 300 UNITS/3 ML VIAL SQ SCH ×2 (09:00→11:26)
[2019-02-27] MEDS: Isosorbide MONOnitrate (24 HR) 30 MG TAB.ER.24H PO SCH (09:06)
[2019-02-27] MEDS ORDERED: Insulin DETEMIR 100 UNIT/ML X5UNITS SQ ONE (14:00)
--- NOTE | 2019-02-27 14:31 | Palliative - Consult Note ---
Date of Encounter: 02/27/19 Time of Encounter: 14:00 - Assessment and Plan (1) Generalized pain Current Visit: Yes Status: Acute Assessment and plan: Remains on IV Fentanyl per ICU protocol. Monitor. He appear comfortable and in no distress. (2) Goals of care, counseling/discussion Current Visit: Yes Status: Acute Assessment and plan: Was unable to reach via telephone. Could not leave message as mailbox was full. Reviewed record - could not find any adv directives on file. D/W primary nurse Maty to please give my contact number if she arrives to hospital. Will f/u in am. (3) Charcot's joint, right ankle and foot Current Visit: No Status: Acute Assessment and plan: Wound care following. (4) Palliative care encounter Current Visit: Yes Status: Acute (5) COPD (chronic obstructive pulmonary disease) Current Visit: Yes Status: Acute Qualifiers: COPD type: unspecified COPD Qualified Code(s): J44.9 - Chronic obstructive pulmonary disease, unspecified (6) Acute and chronic respiratory failure with hypoxia Current Visit: Yes Status: Acute Assessment and plan: Remains on vent support under clean room assembler Dr. Pawan Harrison's care. (7) Acute kidney injury superimposed on CKD Current Visit: Yes Status: Acute Assessment and plan: Nephrology following. Palliative-CN HPI - Data of Consult Requesting Physician: Nadira Alejandra MD Primary Care Provider: Caio Henderson - Consult Narrative History of present illness: Mr. Newsome is a 64 year old male who presented to hospital with difficulty in breathing. He has had several admissions over the last 6 months, and was in hospital in December for respiratory failure and had short mechanical ventilation at that time. Patient was initially treated for pneumonia and CHF, was maintained on oxygen and Bipap, but respiratory status did decline, and he was intubated. He remains sedated and on the ventilator and no family is present, so most information taken from record. He has pertinent medical history for CKD stage IV, DM, CHF with preserved EF (60% this admission), Atrial fibrillation, CAD, GERD, HTN, ND s/p stent. On his last admission for asthma exacerbation, he also required intubation. Patient currently being treated for his CHF, ERICK on CKD, Respiratory failure. Nephrology is following. He was hyponatremic on admission as well, but this has been corrected. Renal function has continued to decline. Upon my visit, he appears to be resting comfortable on the vent, has Precedex 0.2, Fentanyl, and Propofol IV. CC: Nadira Alejandra MD - Time Spent with Patient Time: Total time spent is greater than 50% in coordination of care (as documented) at patient's floor/unit and/or counseling patient: Past Med Surg Social Fam HX - Past Medical History Medical history: arthritis, asthma, atrial fibrillation, coronary artery disease, DVT, diabetes, GERD, hyperlipidemia, hypertension, myocardial infarction, other Additional medical history: BROCK w/ CPAP/2L o2. DJD Psychiatric history: anxiety - Past Surgical History Surgical History: appendectomy, cholecystectomy Additional surgical history: KNEE SURGERY , stent x1, right ankle ext. fixation. Bilateral CTR - Social History Smoking Status: Never smoker Smokeless Tobacco Status: No Alcohol use: none Drug use: none - Family History Mother Living Status: Hx Family Cardiac Disorders: Yes Hx Family Endocrine Disorder: Yes (DM) Father Living Status: Hx Family Cardiac Disorders: Yes (atersclerosis) Medications and Allergies Albuterol Neb [Proventil Neb] 2.5 mg IH Q4HR PRN 09/01/18 [History] Aspirin [Lo-Dose Aspirin EC] 81 mg PO DAILY 09/01/18 [History] Atorvastatin [Lipitor] 40 mg PO DAILY 09/01/18 [History] Clopidogrel [Plavix] 75 mg PO DAILY 09/01/18 [History] EPINEPHrine [Epipen] 0.3 mg IM ONCE PRN 09/01/18 [History] Empagliflozin [Jardiance] 10 mg PO DAILY 09/01/18 [History] Fluticasone/Salmeterol [Advair Hfa 230-21 Mcg Inhaler] 2 puff IH BID 09/01/18 [History] Folic Acid 1 mg PO DAILY 09/01/18 [History] GlipiZIDE XL (24 HR) [Glucotrol XL] 5 mg PO 0800 09/01/18 [History] LORazepam [Ativan] 0.5 mg PO BID 09/01/18 [History] Montelukast [Singulair] 10 mg PO HS 09/01/18 [History] Nitroglycerin [Nitrostat] 0.4 mg SL Q5MIN PRN MDD MAX 3 DOSE/24HOURS 09/01/18 [History] [place]-3 Fatty Acids/Fish Oil [Eql [place]-3 Fish Oil 1,000 mg] 1 cap PO DAILY 09/01/18 [History] Pantoprazole Sodium [Protonix] 20 mg PO DAILY 09/01/18 [History] Tiotropium [Spiriva] 18 mcg IH DAILY 09/01/18 [History] Albuterol Sulfate [Ventolin Hfa] 2 puff IH Q4H PRN 10/14/18 [History] Amlodipine Besylate 10 mg PO DAILY 10/14/18 [History] Fluticasone Propionate Nasal [Flonase] 2 spr NS DAILY PRN 10/14/18 [History] Isosorbide MONOnitrate [Isosorbide Mononitrate ER] 30 mg PO DAILY 10/14/18 [Hi story] Magnesium Oxide [Magnesium] 400 mg PO DAILY 10/14/18 [History] Metoprolol Succinate 50 mg PO DAILY 10/14/18 [History] Pramlintide Acetate [Symlinpen 120] 120 mcg SQ TID 10/14/18 [History] Docusate [Colace] 100 mg PO BID PRN 10/27/18 [History] FLUoxetine HCl [Prozac] 80 mg PO DAILY 10/27/18 [History] Ferrous Sulfate [Iron] 325 mg PO DAILY 10/27/18 [History] Multivit-Min/Iron/Folic Acid/K [Adults Multivitamin Tablet] 1 each PO DAILY 10/27/18 [History] Tamsulosin HCl [Flomax] 0.4 mg PO DAILY 10/28/18 [History] Furosemide [Lasix] 40 mg PO BID 11/30/18 [History] Loratadine [Allergy Relief] 10 mg PO DAILY 11/30/18 [History] Catheter [Clean-Cath] 1 each MC TID PRN #30 each 12/22/18 [Rx] Omalizumab [XOLAIR (For Outpatient Infusion)] 150 mg SQ Q2W 02/22/19 [History] OxyCODONE/APAP 10/325 [Percocet 10/325 MG] 1 tab PO Q4HR PRN 02/22/19 [History] Gabapentin 800 mg PO QID 02/23/19 [History] predniSONE [PredniSONE] 30 mg PO BID 02/23/19 [History] Allergy/AdvReac Type Severity Reaction Status Date / Time dapagliflozin [From [facility]] Allergy Hives Verified 10/28/18 13:46 naphazoline Allergy Hives Verified 10/28/18 13:46 cath DYE Allergy Hives Uncoded 10/28/18 13:46 ROS unobtainable: due to endotracheal tube Palliative Care-Exam - Constitutional Vitals: Temp Pulse Resp BP Pulse Ox 97.6 F 83 24 126/57 100 02/27/19 12:00 02/27/19 14:00 02/27/19 14:00 02/27/19 14:00 02/27/19 14:00 General appearance: Present: obese - Head Head Exam: Present: normal inspection, normocephalic - Eye Pupils: Present: PERRL - Respiratory Respiratory exam: Present: decreased breath sounds, CTAB - Cardiovascular Cardiovascular exam: Present: +S1, +S2 - GI/Abdominal Exam GI/Abdominal exam: Present: diminished bowel sounds, soft - Catheter Type: Urethral (Christensen) Additional comments: Urine clear yellow - Extremities Exam Additional comments: 3+ bilateral edema lower extremities. Dressing to right foot D/I. - Neurological Exam Additional comments: Patient sedated on vent - Skin Skin exam: Present: dry, pallor, warm Internal Medicine - CN: Reslt - Labs CBC & Chem 7: 02/27/19 06:38 02/27/19 06:38 Labs: Short CBC 02/27/19 Range/Units 06:38 WBC 11.3 H (4.3-11.1) K/mcL Hgb 7.7 L (12.9-16.9) g/dL Hct 24.4 L (37.5-50.1) % Plt Count 196 (140-400) K/mcL Neutrophils # 10.4 H (1.6-8.9) K/mcL BMP 02/27/19 06:38 Sodium 129 L Potassium 4.0 Chloride 96 L Carbon Dioxide 17 L BUN 72 H Creatinine 3.26 H Glucose 289 H Calcium 7.8 L Urine 02/26/19 Range/Units 16:00 Urine Color Yellow (Yellow) Urine Clarity Cloudy A (Clear) Urine pH 6.0 (5.0-8.0) pH Units Ur Specific [place] 1.011 (1.010-1.025) Urine Protein 30 H (Neg-Trace) mg/dL Urine Glucose (UA) Normal (Normal) mg/dL - ABG Interpretation ABG results: ABG ABG pH 7.27 pH Units (7.32-7.45) L 02/27/19 05:02 ABG pCO2 43 mmHg (35-45) 02/27/19 05:02 ABG pO2 445 mmHg (85-104) H 02/27/19 05:02 ABG O2 Saturation 100 % (95-98) H 02/27/19 05:02 PT/INR, D-dimer PT 13.5 Seconds (9.4-12.1) H 02/24/19 12:55 Consult Discharge Plan - Plan Referrals: Myron Henderson [Primary Care Provider] - Palliative Quality Palliative Quality: Screen for Code Status: NA (Patient sedated and intubated, no family present), Screen for Goals of Care: NA, Screen for Pain: Yes, If Pain Regimen Started, Initiate Bowel Regimen: NA, Screen for Nausea/Vomitting: NA Code Status: 02/23/19 07:14 CODE [Resuscitation Status: Active] [RES] Routine Comment: Resuscitation Status: Full Code
[2019-02-27] MEDS: Insulin LISPRO 300 UNITS/3 ML VIAL SQ SCH ×4 (15:15→23:17)
[2019-02-27] MEDS: Bumetanide 1 MG/4 ML VIAL IVP SCH (17:09)
--- NOTE | 2019-02-27 23:18 | Nephrology Progress Note ---
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 at this time but discussed goals of care with primary team Continue to avoid nephrotoxins if possible (3) Hyponatremia Current Visit: No Status: Acute Sodium improved at 129, will monitor Continue salt tabs for now Continue to limit obligate fluids if possible (4) Hyperkalemia Current Visit: Yes Status: Resolved Resolved (5) Hospital-acquired pneumonia Current Visit: Yes Status: Suspected Continue abx per primary but must dose vanco renally and monitor levels daily (6) Chronic kidney disease, stage IV (severe) Current Visit: No Status: Chronic Baseline GFR at 20s up to 30s on occasion Subjective Interval history: Pt seen and examined still intubated and sedated. No family members present at bedside. Objective - Vital Signs Vital signs: Vital Signs Temp Pulse Resp BP Pulse Ox 02/27/19 23:10 24 130/50 100 02/27/19 23:00 83 24 130/50 100 02/27/19 22:00 81 24 129/51 100 02/27/19 21:40 24 100 02/27/19 21:00 83 24 132/50 02/27/19 20:42 97.4 F L 02/27/19 20:00 81 02/27/19 19:38 24 127/58 100 02/27/19 19:00 81 24 127/58 100 02/27/19 18:00 80 24 127/57 100 02/27/19 17:40 24 124/59 100 02/27/19 17:00 80 24 124/56 100 02/27/19 16:00 97 F L 80 24 122/54 100 02/27/19 15:15 24 123/53 100 02/27/19 15:00 82 24 123/53 100 02/27/19 14:00 83 24 126/57 100 02/27/19 13:00 85 24 127/55 100 02/27/19 12:00 97.6 F 85 24 124/53 100 02/27/19 11:15 24 129/69 100 02/27/19 11:00 87 24 126/52 100 02/27/19 10:00 89 24 122/49 100 02/27/19 09:25 24 124/50 100 02/27/19 09:00 90 24 124/50 100 02/27/19 08:24 97.7 F 02/27/19 08:00 91 02/27/19 07:36 25 125/53 100 02/27/19 07:00 90 24 123/54 100 02/27/19 06:00 90 26 124/53 100 02/27/19 05:29 28 125/51 100 02/27/19 05:00 90 27 125/52 100 02/27/19 04:31 97.8 F 02/27/19 04:00 91 27 121/53 100 02/27/19 03:37 93 02/27/19 03:14 24 121/49 100 02/27/19 03:00 89 24 123/51 100 02/27/19 02:00 97 24 109/55 100 02/27/19 01:33 24 108/55 98 02/27/19 01:00 96 24 107/56 100 02/27/19 00:00 98.0 F 88 24 108/53 98 02/26/19 23:35 24 108/55 98 02/26/19 23:23 85 Intake and Output 02/27/19 02/27/19 02/27/19 07:59 15:59 23:59 Intake Total 400 / 1228 435 / 1228 393 / 1228 Output Total 350 / 3250 725 / 3250 2175 / 3250 Balance 50 / -2021 -290 / -202 -178 / -2021 Intake: IV Fluids 400 / 945 435 / 945 110 / 945 Precedex Premix 400 mcg In 100 100 / 220 120 / 220 ml @ 0.1 MCG/KG/HR 3.108 mls/hr IVC .Q24H JIMMY Rx#:[id number] FentaNYL (PF) 1,000 MCG In 0.9 100 / 210 100 / 210 10 / 210 % Sodium Chloride 80 ML @ 50 MCG/HR 5 mls/hr IVC CONT JIMMY Rx #:[id number] Diprivan 1,000 mg In 100 ml @ 5 200 / 495 195 / 495 100 / 495 MCG/KG/MIN 3.87 mls/hr IVC . Q24H JIMMY Rx#:[id number] Maxipime 2,000 MG In Water for 20 / 20 inj. (sterile) 20 ML @ 300 mls/ hr IVP Q24H JIMMY Rx#:[id number] Tube Feeding 113 / 113 Free Water / Free Water Intake Amount Output: Catheter 350 / 3250 725 / 3250 2175 / 3250 Other: Blood Glucose* 291 290 237 - General Appearance General appearance: Present: sedated on ventilator, intubated EENT: Present: ATNC, mucous membranes moist Neck: Present: no JVD, supple Respiratory: Present: course breath sounds Cardiology: Present: edema (LE bilat), normal S1, normal S2 Gastrointestinal: Present: no tenderness, no guarding, obese Additional Comments: sedated Musculoskeletal: Present: no deformities Additional Comments: sedated - Lab 02/27/19 06:38 02/27/19 06:38 Consult Discharge Plan - Plan Referrals: Myron Henderson [Primary Care Provider] -
[2019-02-28] MEDS: Ipratropium/Albuterol Neb 3 ML IH SCH ×7 (03:18→23:36)
[2019-02-28] MEDS: Insulin LISPRO 300 UNITS/3 ML VIAL SQ SCH ×7 (03:47→23:26)
[2019-02-28] MEDS: Artificial Tears SOLN 15 ML BOTTLE BOTH EYES SCH ×6 (03:47→23:28)
[2019-02-28 04:06] LABS: Hematocrit 24.8 % (37.5-50.1); Immature Granulocytes % 1.8 % (0-4); Lymphocytes # 0.2 K/mcL (0.6-4.6); Lymphocytes % 1.8 %; Mean Corpuscular HGB Conc 32.3 g/dL (31.6-35.5); Mean Corpuscular Hemoglobin 27.1 pg (28.0-33.3); Mean Corpuscular Volume 84.1 fL (83.0-100.0); Mean Platelet Volume 12.1 fL (9.4-12.4); Monocytes # 0.4 K/mcL (0.0-1.3); Monocytes % 3.4 %; Neutrophils # 12.1 K/mcL (1.6-8.9); Nucleated Red Blood Cells 0.4 /100 WBC (0); Platelet Count 245 K/mcL (140-400); Red Blood Count 2.95 M/mcL (4.19-5.50); Red Cell Distribution Width 17.8 % (11.5-14.5)
[2019-02-28 04:23] LABS: Calcium 7.6 mg/dL (8.6-10.3); Potassium 3.7 mEq/L (3.5-5.1)
[2019-02-28 04:47] LABS: ABG Base Excess -4 mEq/L (-2 to 3); ABG HCO3 21 mEq/L (21-27); ABG Oxygen Saturation 99 % (95-98); ABG PCO2 38 mmHg (35-45); ABG PH 7.35 pH Units (7.32-7.45); ABG PO2 139 mmHg (85-104); ABG TCO2 22 mEq/L (20-26); Blood Gas Modality ASSIST CONTROL; Blood Gas PEEP 12 cm H2O; Blood Gas VT 500 cc
[2019-02-28] MEDS: *HR* Heparin 5,000 UNIT/ML VIAL SQ SCH ×3 (06:06→20:32)
[2019-02-28] MEDS: FentaNYL (PF) 1,000 MCG in 0.9 % Sodium Chloride 80 ML IVC SCH (06:50)
[2019-02-28] MEDS: Bumetanide 1 MG/4 ML VIAL IVP SCH ×2 (07:16→15:53)
[2019-02-28] MEDS: Pantoprazole 40 MG VIAL IVP SCH (07:18)
[2019-02-28] MEDS: Cefepime HCl 2,000 MG in Water for inj. (sterile) 20 ML IVP SCH (07:21)
[2019-02-28] MEDS: MethylPREDNISolone 40 MG/ML VIAL IVP SCH ×3 (07:23→23:28)
[2019-02-28] MEDS: Loratadine 10 MG TABLET PO SCH (07:24)
[2019-02-28] MEDS: FLUoxetine 20 MG CAPSULE PO SCH (07:24)
[2019-02-28] MEDS: Multivit/Ca/Min/Fe/FA 1 TAB TABLET PO SCH (07:24)
[2019-02-28] MEDS: Magnesium Oxide 400 MG TABLET PO SCH (07:24)
[2019-02-28] MEDS: amLODIPine 5 MG TABLET PO SCH (07:24)
[2019-02-28] MEDS: Folic Acid 1 MG TABLET PO SCH (07:25)
[2019-02-28] MEDS: Chlorhexidine Rinse 15 ML MOUTHWASH MM SCH ×2 (07:25→20:32)
[2019-02-28] MEDS: Isosorbide MONOnitrate (24 HR) 30 MG TAB.ER.24H PO SCH (07:41)
[2019-02-28] MEDS: Metoprolol XL (24 HR) Succ 50 MG TAB.ER.24H PO SCH (07:41)
[2019-02-28] MEDS: Aspirin Enteric Coated 81 MG Tablet PO SCH (07:41)
[2019-02-28] MEDS: Budesonide/Formoterol 160/4.5 1 PUFF INH IH SCH ×2 (07:44→19:32)
--- NOTE | 2019-02-28 08:37 | Pulmonology Progress Note ---
<ChristyJesu W - Last Filed: 02/28/19 10:20> Date of Encounter: 02/28/19 Objective PUL Vital signs: Last Vital Signs Temp 98.9 F 02/28/19 08:00 Pulse 100 02/28/19 09:00 Resp 18 02/28/19 09:00 BP 119/55 02/28/19 09:00 Pulse Ox 93 02/28/19 09:00 Ventilator Settings Ventilator Settings: Ventilator Settings, Last 8 Hours Ventilator Tidal Volume 500 Setting Ventilator Tidal Volume 500 Setting Ventilator Tidal Volume 500 Setting Ventilator Tidal Volume 500 Setting Ventilator Tidal Volume 500 Setting Ventilator Tidal Volume 500 Setting Ventilator Tidal Volume 500 Setting Ventilator Tidal Volume 500 Setting Ventilator Tidal Volume 500 Setting Ventilator Tidal Volume 500 Setting Ventilator Tidal Volume 500 Setting Ventilator Respiratory Rate 18 Setting Ventilator Respiratory Rate 24 Setting Ventilator Respiratory Rate 24 Setting Ventilator Respiratory Rate 24 Setting Ventilator Respiratory Rate 24 Setting Ventilator Respiratory Rate 24 Setting Ventilator Respiratory Rate 24 Setting Ventilator Respiratory Rate 486 Setting Ventilator Respiratory Rate 24 Setting Ventilator Respiratory Rate 24 Setting Ventilator Respiratory Rate 24 Setting Actual Respiratory Rate 18 Actual Respiratory Rate 24 Actual Respiratory Rate 24 Actual Respiratory Rate 24 Actual Respiratory Rate 24 Actual Respiratory Rate 24 Actual Respiratory Rate 27 Actual Respiratory Rate 24 Actual Respiratory Rate 26 Actual Respiratory Rate 24 Positive End Expiratory 10 Pressure Positive End Expiratory 12 Pressure Positive End Expiratory 12 Pressure Positive End Expiratory 12 Pressure Positive End Expiratory 12 Pressure Positive End Expiratory 12 Pressure Positive End Expiratory 12 Pressure Positive End Expiratory 12 Pressure Positive End Expiratory 12 Pressure Positive End Expiratory 12 Pressure Positive End Expiratory 12 Pressure Peak Inspiratory Airway 33 Pressure Peak Inspiratory Airway 33 Pressure Peak Inspiratory Airway 38 Pressure Peak Inspiratory Airway 38 Pressure Peak Inspiratory Airway 38 Pressure Peak Inspiratory Airway 33 Pressure Peak Inspiratory Airway 33 Pressure Peak Inspiratory Airway 33 Pressure Results - Laboratory Findings CBC and BMP: 02/28/19 03:52 02/28/19 03:52 ABG ABG pH 7.35 pH Units (7.32-7.45) 02/28/19 04:44 ABG pCO2 38 mmHg (35-45) 02/28/19 04:44 ABG pO2 139 mmHg (85-104) H 02/28/19 04:44 ABG O2 Saturation 99 % (95-98) H 02/28/19 04:44 PT/INR, D-dimer PT 13.5 Seconds (9.4-12.1) H 02/24/19 12:55 Abnormal lab findings: Abnormal lab results WBC 13.0 K/mcL (4.3-11.1) H 02/28/19 03:52 RBC 2.95 M/mcL (4.19-5.50) L 02/28/19 03:52 Hgb 8.0 g/dL (12.9-16.9) L 02/28/19 03:52 Hct 24.8 % (37.5-50.1) L 02/28/19 03:52 MCH 27.1 pg (28.0-33.3) L 02/28/19 03:52 MCHC 31.1 g/dL (31.6-35.5) L 02/26/19 06:06 RDW 17.8 % (11.5-14.5) H 02/28/19 03:52 MPV 12.5 fL (9.4-12.4) H 02/27/19 06:38 Neutrophils # 12.1 K/mcL (1.6-8.9) H 02/28/19 03:52 Lymphocytes # 0.2 K/mcL (0.6-4.6) L 02/28/19 03:52 Monocytes # 1.5 K/mcL (0.0-1.3) H 02/25/19 02:22 Nucleated RBCs/100 WBC 0.4 /100 WBC (0) H 02/28/19 03:52 PT 13.5 Seconds (9.4-12.1) H 02/24/19 12:55 ABG pH 7.27 pH Units (7.32-7.45) L 02/27/19 05:02 ABG pCO2 48 mmHg (35-45) H 02/26/19 15:31 ABG pO2 139 mmHg (85-104) H 02/28/19 04:44 ABG HCO3 20 mEq/L (21-27) L 02/27/19 05:02 ABG O2 Saturation 99 % (95-98) H 02/28/19 04:44 ABG Base Excess -4 mEq/L (-2 to 3) L 02/28/19 04:44 VBG pCO2 28 mmHg (41-51) L 02/23/19 09:26 VBG pO2 131 mmHg (25-50) H 02/23/19 09:26 VBG HCO3 18 mEq/L (21-27) L 02/23/19 09:26 Sodium 132 mEq/L (136-145) L 02/28/19 03:52 Potassium 5.4 mEq/L (3.5-5.1) H 02/23/19 16:40 Chloride 96 mEq/L (98-107) L 02/27/19 06:38 Carbon Dioxide 19 mEq/L (23-29) L 02/28/19 03:52 BUN 83 mg/dL (8-23) H 02/28/19 03:52 Creatinine 3.19 mg/dL (0.70-1.30) H 02/28/19 03:52 Est GFR ( Amer) 24 (> 60) L 02/28/19 03:52 Est GFR (Non-Af Amer) 20 (> 60) L 02/28/19 03:52 Glucose 188 mg/dL (70-105) H 02/28/19 03:52 POC Glucose 193 mg/dL (70-99) H 02/28/19 07:38 Serum Osmolality 275 mOsm/kg (280-300) L 02/23/19 11:07 Calculated Osmolality 304 (280-300) H 02/28/19 03:52 Calcium 7.6 mg/dL (8.6-10.3) L 02/28/19 03:52 B-Natriuretic Peptide 633 pg/mL (Less than 100) H 02/22/19 10:13 Procalcitonin 1.33 ng/mL (0.00-0.15) H 02/26/19 14:10 Urine Clarity Cloudy (Clear) A 02/26/19 16:00 Urine Protein 30 mg/dL (Neg-Trace) H 02/26/19 16:00 Urine Blood Moderate (Negative) H 02/26/19 16:00 Ur Leukocyte Esterase Large (Negative) H 02/26/19 16:00 Urine Microscopic RBC 30-50 per hpf (0-3) H 02/26/19 16:00 Urine Microscopic WBC TNTC per hpf (0-3) H 02/26/19 16:00 Ur Squamous Epith Cells Moderate per lpf (None-Few) H 02/26/19 16:00 Ur Culture Indicated? YES (NO) A 02/26/19 16:00 Urine Osmolality 189 mOsm/kg (300-1090) L 02/23/19 12:42 Nasal Screen MRSA (PCR) DETECTED (Not Detect) A 02/23/19 12:26 Vancomycin Trough 21 mcg/mL (5-10) H 02/24/19 09:38 - Microbiology Findings Microbiology Findings: Microbiology, Last 48 Hours 02/22/19 10:54 Blood Culture - Final Peripheral Venipuncture No growth. Final report. 02/22/19 10:54 Blood Culture - Final Peripheral Venipuncture No growth. Final report. 02/26/19 16:00 Urine Culture - Final Urine,Clean Catch No growth. - Clinical Findings Intake & Output: Intake & Output 02/27/19 02/28/19 02/28/19 23:59 07:59 15:59 Intake Total 422.6 / 1257.6 656 / 742 86 / 742 Output Total 2175 / 3250 650 / 650 Balance -1752.4 / -1992.4 Weight 124.4 kg Consult Discharge Plan - Plan Referrals: Myron Henderson [Primary Care Provider] - - Attending Attestation I examined this patient and my medical decision-making was reviewed with the Resident Physician. I agree with the documented findings, disposition and treatment plan as described except to the extent set forth below. We independently had [id number] contact with the patient I spent 33min of Critical Care time with this patient. It involved decision making of high complexity to assess, manipulate, and support vital organ system failure and/or to prevent further life threatening deterioration of the patient's condition. The time involved in the performance of separately reportab le procedures was not counted toward critical care time. Patient seen and examined at bedside Labs, radiology, chart personally reviewed. Management was reviewed during multidisciplinary critical care rounds. [employer]: remains sedated on vent wakes up able to make eye contact will cont to lower sedation to goal estrada 2 Pulm: Acute on chronic hypoxic hypercapic respiratory failure on vent improving gas exchange.. vent mechanics acceptable willl need to optimize as sedation lifted. ok to decrease FIO2/PEEP ratio today Cards: BP stable. cont diursis for Decommpensated acute on on chronic HFpEF. GI: PPi given Nutrition: Start Enteral Nutrition Renal: UOP Monitored, Cont to Trend sCr and monitor Electrolytes. ID: treating for PNA on abx Heme/Onc: DVT prophylaxis given Endo: Glucose Monitored Integ/MSK: Skin Care per routine ICU Nursing Protocol to prevent ulcers. Lines: All lines examined without evidence of infection : Dispo: Cont monitor in ICU for critical illness CODE: Full code. <Lefty Sanchez - Last Filed: 02/28/19 15:12> Date of Encounter: 02/28/19 Time of Encounter: 06:45 Assessment and Plan (1) Encephalopathy Current Visit: Yes Status: Suspected -Consider secondary to uremia -CKD IV not on dialysis -Patient on Precedex and fentanyl -BUN and creatinine continue to rise Plan: Nephrology consulted. May need dialysis. Titrate sedation to Jluis 2. (2) Acute and chronic respiratory failure with hypoxia Current Visit: Yes Status: Acute -likely due to infectious pneumonia vs. heart failure with preserved ejection fraction -Will defer CTA at this point as disease process more likely explained by other etiology and risk/benefit correlation in the setting of ERICK on CKD. -Failed BiPAP therapy. Intubated 02/25/19. -ABG 02/28/19: Resolution of derangements Plan: Sedation with Dexmedetomidine, fentanyl. Vent: Rate 24, FiO2 60, PEEP 12, TV 500. DuoNeb's. Symbicort. Solu-Medrol every 8 hours. Optimize vent settings. (3) Respiratory acidosis Current Visit: Yes Status: Acute -ABG as above -Resolved Plan: Continue optimization of ventilation settings. (4) Pleural effusion Current Visit: No Status: Suspected -Suspected bilateral -CXR 02/28/19 read as likely trace bilateral effusions with some improvement of bilateral patchy opacities. -Continue to stabilize patient's respiratory status (5) Hospital-acquired pneumonia Current Visit: Yes Status: Suspected Plan as below (6) COPD (chronic obstructive pulmonary disease) Current Visit: Yes Status: Acute -Medications for acute respiratory failure as above. Do not suspect over COPD exacerbation at this point as clinical picture points more towards heart failure. -Continue to monitor Qualifiers: COPD type: unspecified COPD Qualified Code(s): J44.9 - Chronic obstructive pulmonary disease, unspecified (7) Acute on chronic diastolic (congestive) heart failure Current Visit: No Status: Suspected -Consider 2/2 infectious process -Patient admits baseline orthopnea, PND, leg swelling. Recent increased dyspnea -Troponin negative -BNP 611 -TSH WNL; A1c 04/10/18 7.6 -CXR 02/23/19 shows stable cardiomegaly -Echo 01/05/19: Suboptimal. LVEF 55%. Indeterminant diastolic function. Grossly mildly dilated right ventricle with normal function. Mild aortic stenosis. Mild pulmonary hypertension -Echo 02/26/19: Left ventricular ejection fraction 60%. Indeterminant diastolic function. Mild to moderate aortic stenosis, mild mitral regurg, mild tricuspid regurg. Borderline pulmonary hypertension. Plan: Metoprolol succinate, aspirin, isosorbide mononitrate, atorvastatin. No DARSHAN inhibitor secondary to CKD. Continue diuresis with 2 mg Bumex IV to goal of 1-2 L urine output per day. Hold home furosemide. (8) Atrial fibrillation Current Visit: No Status: Chronic -Chronic -Metoprolol rate control -Recent tachycardia. Morning metoprolol not given. Plan: Switched metoprolol XL to metoprolol 25 mg twice a day Qualifiers: Atrial fibrillation type: chronic Qualified Code(s): I48.2 - Chronic atrial fibrillation (9) Hypertension Current Visit: No Status: Chronic -Chronic, stable -Continue to monitor Qualifiers: Hypertension type: essential hypertension Qualified Code(s): I10 - Es sential (primary) hypertension (10) High anion gap metabolic acidosis Current Visit: Yes Status: Acute -resolved Background -Consider 2/2 uremia -Lactic acid within normal limits. Lab -ABG: As above Plan: Repeat ABG unremarkable. Nephrology following. (11) Metabolic alkalosis Current Visit: Yes Status: Acute -resolved Background -Consider due to initiation: diuresis, post-resp. acidosis // maintenance: Volume depletion. Also chronic compensation for COPD Lab -ABG: As above Plan: Consider Urine Cl level. Continue to monitor (12) Hyponatremia Current Visit: No Status: Acute -Acute on chronic -Searching for cause. Consider secondary to fluid overload state from heart failure with preserved ejection fraction. - 112 at the lowest. -Urine sodium 16.1, urine creatinine 33, urine osmolality low at 189. Will likely need repeat of these values after saline therapy. Consider some component of SIADH or glucocorticoid deficiency. -Nephrology is favoring component of polydipsia. Appreciate their recommendations Plan: Improving. Salt tablets 1 g twice a day per nephrology. (13) Hyperkalemia Current Visit: Yes Status: Resolved -resolved after kayexalate therapy -Consider secondary to ERICK on CKD versus hypoaldosteronism -EKG 02/23/19: showed no peaked T waves. sinus rhythm. HR 70. no ST or T waves changes indicating ischemia. plan: Nephrology consulted. Continue to monitor (14) Acute kidney injury superimposed on CKD Current Visit: Yes Status: Acute CKD stage IV -Consider secondary to cardiorenal syndrome -BUN/creatinine continues to worsen. Will likely need dialysis therapy. Plan: No DARSHAN inhibitor. Bumex as above. Nephrology consulted (15) Sepsis Current Visit: No Status: Acute -Possibly secondary to hospital-acquired pneumonia versus chronic wound of right lower extremity -SIRS 2 out of 4: temp stable, pulse 105 on arrival, rr 20 on arrival, WBC within normal limits -lactic acid within normal limits -blood cultures 02/22/19 x2 negative final. -Pro calcitonin within normal limits. Legionella and Streptococcus pneumonia antigens negative. -CXR 02/22/19: Read as likely multifocal pneumonia versus pulmonary edema -CXR 02/26/19: Read as showing worsening diffuse airspace disease. -Repeat pro calcitonin elevated. Plan: Stop vancomycin. cefepime day 01/05 for pneumonia. sputum culture pending. Qualifiers: Qualified Code(s): A41.9 - Sepsis, unspecified organism (16) Abscess of right foot Current Visit: No Status: Acute -Continue to monitor as concern for sepsis (17) Diabetes mellitus Current Visit: No Status: Chronic -Recent glucose levels elevated Plan: 20 units long-acting at bedtime (15 given last night) with high-dose sliding scale. 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: with terminal block assembler use Diabetes mellitus complication status: with neurologic complications Diabetes mellitus complication detail: with polyneuropathy Qualified Code(s): E11.42 - Type 2 diabetes mellitus with diabetic polyneuropathy; Z79.4 - [facility] (current) use of insulin Subjective Interval history: Intubation on 02/25/19 currently day 3. Patient intubated and sedated. Will plan to continue aggressive diuresis for goal of 1-2 L per day urine output. Objective PUL Vital signs: Last Vital Signs Temp 98.7 F 02/28/19 04:19 Pulse 98 02/28/19 07:30 Resp 24 02/28/19 07:00 BP 117/50 02/28/19 07:00 Pulse Ox 98 02/28/19 07:00 Gen.: Elderly male. Sedated Skin: Poor turgor of forehead. Powder application in intertriginous areas Eyes: Moist. Nonicteric Cardiac: Some of exam showed regular rate with likely tachycardia and at other periods irregular rhythm. 3/6 systolic murmur best heard over pulmonic valve. Respiratory: Crackles in left lower lung base anteriorly. Upper anterior field wheezing bilaterally. GI: Obese. Soft. Normoactive bowel sounds Extremities: Capillary refill less than 2 seconds upper extremities bilaterally. Bilateral pitting edema to the knee. Neuro: Jluis 6. #NEURO (1) Encephalopathy Current Visit: Yes Status: Suspected -Consider secondary to uremia -CKD IV not on dialysis -Patient on Precedex and fentanyl -BUN and creatinine continue to rise Plan: Nephrology consulted. May need dialysis. Titrate sedation to Jluis 2. #RESPIRATORY (2) Acute and chronic respiratory failure with hypoxia Current Visit: Yes Status: Acute -likely due to infectious pneumonia vs. heart failure with preserved ejection fraction -Will defer CTA at this point as disease process more likely explained by other etiology and risk/benefit correlation in the setting of ERICK on CKD. -Failed BiPAP therapy. Intubated 02/25/19. -ABG 02/28/19: Resolution of derangements Plan: Sedation with Dexmedetomidine, fentanyl. Vent: Rate 24, FiO2 60, PEEP 12, TV 500. DuoNeb's. Symbicort. Solu-Medrol every 8 hours. Optimize vent settings. (3) Respiratory acidosis -ABG as above -Resolved Plan: Continue optimization of ventilation settings. (4) Pleural effusion Current Visit: No Status: Suspected -Suspected bilateral -CXR 02/28/19 read as likely trace bilateral effusions with some improvement of bilateral patchy opacities. -Continue to stabilize patient's respiratory status (5) Hospital-acquired pneumonia Current Visit: Yes Status: Suspected Plan as above (6) COPD (chronic obstructive pulmonary disease) Current Visit: Yes Status: Acute -Medications for acute respiratory failure as above. Do not suspect over COPD exacerbation at this point as clinical picture points more towards heart failure. -Continue to monitor #CARDS (7) Acute on chronic diastolic (congestive) heart failure Current Visit: No Status: Suspected -Consider 2/2 infectious process -Patient admits baseline orthopnea, PND, leg swelling. Recent increased dyspnea -Troponin negative -BNP 611 -TSH WNL; A1c 9/10/18 7.6 -CXR 02/23/19 shows stable cardiomegaly -Echo 01/05/19: Suboptimal. LVEF 55%. Indeterminant diastolic function. Grossly mildly dilated right ventricle with normal function. Mild aortic stenosis. Mil d pulmonary hypertension -Echo 02/26/19: Left ventricular ejection fraction 60%. Indeterminant diastolic function. Mild to moderate aortic stenosis, mild mitral regurg, mild tricuspid regurg. Borderline pulmonary hypertension. Plan: Metoprolol succinate, aspirin, isosorbide mononitrate, atorvastatin. No DARSHAN inhibitor secondary to CKD. Continue diuresis with 2 mg Bumex IV to goal of 1-2 L urine output per day. Hold home furosemide. (8) Atrial fibrillation -Chronic -Metoprolol rate control -Recent tachycardia. Morning metoprolol not given. Plan: Switched metoprolol XL to metoprolol 25 mg twice a day (9) Hypertension Current Visit: No Status: Chronic -Chronic, stable -Continue to monitor #GI -pantoprazole -Enteral nutrition. #RENAL (10) High anion gap metabolic acidosis -resolved Background -Consider 2/2 uremia -Lactic acid within normal limits. Lab -ABG: As above Plan: Repeat ABG unremarkable. Nephrology following. (11) Metabolic alkalosis -resolved Background -Consider due to initiation: diuresis, post-resp. acidosis // maintenance: Volume depletion. Also chronic compensation for COPD Lab -ABG: As above Plan: Consider Urine Cl level. Continue to monitor (12) Hyponatremia -Acute on chronic -Searching for cause. Consider secondary to fluid overload state from heart failure with preserved ejection fraction. - 112 at the lowest. -Urine sodium 16.1, urine creatinine 33, urine osmolality low at 189. Will likely need repeat of these values after saline therapy. Consider some component of SIADH or glucocorticoid deficiency. -Nephrology is favoring component of polydipsia. Appreciate their recommendations Plan: Improving. Salt tablets 1 g twice a day per nephrology. (13) Hyperkalemia -resolved after kayexalate therapy -Consider secondary to ERICK on CKD versus hypoaldosteronism -EKG 02/23/19: showed no peaked T waves. sinus rhythm. HR 70. no ST or T waves changes indicating ischemia. plan: Nephrology consulted. Continue to monitor (14) Acute kidney injury superimposed on CKD Current Visit: Yes Status: Acute -CKD stage IV -Consider secondary to cardiorenal syndrome -BUN/creatinine continues to worsen. Will likely need dialysis therapy. Plan: No DARSHAN inhibitor. Bumex as above. Nephrology consulted. #ID (15) Sepsis Current Visit: No Status: Acute -Possibly secondary to hospital-acquired pneumonia versus chronic wound of right lower extremity -SIRS 2 out of 4: temp stable, pulse 105 on arrival, rr 20 on arrival, WBC within normal limits -lactic acid within normal limits -blood cultures 02/22/19 x2 negative final. -Pro calcitonin within normal limits. Legionella and Streptococcus pneumonia antigens negative. -CXR 02/22/19: Read as likely multifocal pneumonia versus pulmonary edema -CXR 02/26/19: Read as showing worsening diffuse airspace disease. -Repeat pro calcitonin elevated. Plan: Stop vancomycin. cefepime day 01/05 for pneumonia. sputum culture pending. (16) Abscess of right foot Current Visit: No Status: Acute -Continue to monitor as concern for sepsis #HEME/ONC -subq heparin DVT ppx #ENDOCRINE (17) Diabetes mellitus Current Visit: No Status: Chronic -Recent glucose levels elevated Plan: 20 units long-acting at bedtime (15 given last night) with high-dose sliding scale. DISPO -cont to monitor in ICU for critical illness CODE -full code Ventilator Settings Ventilator Settings: Ventilator Settings, Last 8 Hours Ventilator Tidal Volume 500 Setting Ventilator Tidal Volume 500 Setting Ventilator Tidal Volume 500 Setting Ventilator Tidal Volume 500 Setting Ventilator Tidal Volume 500 Setting Ventilator Tidal Volume 500 Setting Ventilator Tidal Volume 500 Setting Ventilator Tidal Volume 500 Setting Ventilator Tidal Volume 500 Setting Ventilator Tidal Volume 500 Setting Ventilator Tidal Volume 500 Setting Ventilator Respiratory Rate 24 Setting Ventilator Respiratory Rate 24 Setting Ventilator Respiratory Rate 24 Setting Ventilator Respiratory Rate 24 Setting Ventilator Respiratory Rate 24 Setting Ventilator Respiratory Rate 486 Setting Ventilator Respiratory Rate 24 Setting Ventilator Respiratory Rate 24 Setting Ventilator Respiratory Rate 24 Setting Ventilator Respiratory Rate 24 Setting Ventilator Respiratory Rate 24 Setting Actual Respiratory Rate 24 Actual Respiratory Rate 24 Actual Respiratory Rate 24 Actual Respiratory Rate 24 Actual Respiratory Rate 27 Actual Respiratory Rate 24 Actual Respiratory Rate 26 Actual Respiratory Rate 24 Actual Respiratory Rate 24 Actual Respiratory Rate 24 Positive End Expiratory 12 Pressure Positive End Expiratory 12 Pressure Positive End Expiratory 12 Pressure Positive End Expiratory 12 Pressure Positive End Expiratory 12 Pressure Positive End Expiratory 12 Pressure Positive End Expiratory 12 Pressure Positive End Expiratory 12 Pressure Positive End Expiratory 12 Pressure Positive End Expiratory 12 Pressure Positive End Expiratory 12 Pressure Peak Inspiratory Airway 38 Pressure Peak Inspiratory Airway 38 Pressure Peak Inspiratory Airway 38 Pressure Peak Inspiratory Airway 33 Pressure Peak Inspiratory Airway 33 Pressure Peak Inspiratory Airway 33 Pressure Peak Inspiratory Airway 33 Pressure Results - Laboratory Findings CBC and BMP: 02/28/19 03:52 02/28/19 03:52 ABG ABG pH 7.35 pH Units (7.32-7.45) 02/28/19 04:44 ABG pCO2 38 mmHg (35-45) 02/28/19 04:44 ABG pO2 139 mmHg (85-104) H 02/28/19 04:44 ABG O2 Saturation 99 % (95-98) H 02/28/19 04:44 PT/INR, D-dimer PT 13.5 Seconds (9.4-12.1) H 02/24/19 12:55 Abnormal lab findings: Abnormal lab results WBC 13.0 K/mcL (4.3-11.1) H 02/28/19 03:52 RBC 2.95 M/mcL (4.19-5.50) L 02/28/19 03:52 Hgb 8.0 g/dL (12.9-16.9) L 02/28/19 03:52 Hct 24.8 % (37.5-50.1) L 02/28/19 03:52 MCH 27.1 pg (28.0-33.3) L 02/28/19 03:52 MCHC 31.1 g/dL (31.6-35.5) L 02/26/19 06:06 RDW 17.8 % (11.5-14.5) H 02/28/19 03:52 MPV 12.5 fL (9.4-12.4) H 02/27/19 06:38 Neutrophils # 12.1 K/mcL (1.6-8.9) H 02/28/19 03:52 Lymphocytes # 0.2 K/mcL (0.6-4.6) L 02/28/19 03:52 Monocytes # 1.5 K/mcL (0.0-1.3) H 02/25/19 02:22 Nucleated RBCs/100 WBC 0.4 /100 WBC (0) H 02/28/19 03:52 PT 13.5 Seconds (9.4-12.1) H 02/24/19 12:55 ABG pH 7.27 pH Units (7.32-7.45) L 02/27/19 05:02 ABG pCO2 48 mmHg (35-45) H 02/26/19 15:31 ABG pO2 139 mmHg (85-104) H 02/28/19 04:44 ABG HCO3 20 mEq/L (21-27) L 02/27/19 05:02 ABG O2 Saturation 99 % (95-98) H 02/28/19 04:44 ABG Base Excess -4 mEq/L (-2 to 3) L 02/28/19 04:44 VBG pCO2 28 mmHg (41-51) L 02/23/19 09:26 VBG pO2 131 mmHg (25-50) H 02/23/19 09:26 VBG HCO3 18 mEq/L (21-27) L 02/23/19 09:26 Sodium 132 mEq/L (136-145) L 02/28/19 03:52 Potassium 5.4 mEq/L (3.5-5.1) H 02/23/19 16:40 Chloride 96 mEq/L (98-107) L 02/27/19 06:38 Carbon Dioxide 19 mEq/L (23-29) L 02/28/19 03:52 BUN 83 mg/dL (8-23) H 02/28/19 03:52 Creatinine 3.19 mg/dL (0.70-1.30) H 02/28/19 03:52 Est GFR ( Amer) 24 (> 60) L 02/28/19 03:52 Est GFR (Non-Af Amer) 20 (> 60) L 02/28/19 03:52 Glucose 188 mg/dL (70-105) H 02/28/19 03:52 POC Glucose 193 mg/dL (70-99) H 02/28/19 07:38 Serum Osmolality 275 mOsm/kg (280-300) L 02/23/19 11:07 Calculated Osmolality 304 (280-300) H 02/28/19 03:52 Calcium 7.6 mg/dL (8.6-10.3) L 02/28/19 03:52 B-Natriuretic Peptide 633 pg/mL (Less than 100) H 02/22/19 10:13 Procalcitonin 1.33 ng/mL (0.00-0.15) H 02/26/19 14:10 Urine Clarity Cloudy (Clear) A 02/26/19 16:00 Urine Protein 30 mg/dL (Neg-Trace) H 02/26/19 16:00 Urine Blood Moderate (Negative) H 02/26/19 16:00 Ur Leukocyte Esterase Large (Negative) H 02/26/19 16:00 Urine Microscopic RBC 30-50 per hpf (0-3) H 02/26/19 16:00 Urine Microscopic WBC TNTC per hpf (0-3) H 02/26/19 16:00 Ur Squamous Epith Cells Moderate per lpf (None-Few) H 02/26/19 16:00 Ur Culture Indicated? YES (NO) A 02/26/19 16:00 Urine Osmolality 189 mOsm/kg (300-1090) L 02/23/19 12:42 Nasal Screen MRSA (PCR) DETECTED (Not Detect) A 02/23/19 12:26 Vancomycin Trough 21 mcg/mL (5-10) H 02/24/19 09:38 - Microbiology Findings Microbiology Findings: Microbiology, Last 48 Hours 02/22/19 10:54 Blood Culture - Final Peripheral Venipuncture No growth. Final report. 02/22/19 10:54 Blood Culture - Final Peripheral Venipuncture No growth. Final report. 02/26/19 16:00 Urine Culture - Final Urine,Clean Catch No growth. - Clinical Findings Intake & Output: Intake & Output 02/27/19 02/28/19 02/28/19 23:59 07:59 15:59 Intake Total 422.6 / 1257.6 656 / 656 Output Total 2175 / 3250 650 / 650 Balance -1752.4 / -1992.4 Weight 124.4 kg
[2019-02-28] MEDS: Insulin DETEMIR 100 UNIT/ML X5UNITS SQ SCH (08:47)
[2019-02-28] MEDS ORDERED: Aminoglycoside Consult 1 EACH MC ONE (09:28)
--- NOTE | 2019-02-28 13:31 | Palliative Progress Note ---
Date of Encounter: 02/28/19 Time of Encounter: 12:00 - Assessment and plan (1) Generalized pain Current Visit: Yes Status: Acute Assessment and plan: Remains on Fentanyl per ICU protocol - currently at 50mcg/hr. Appears comfort able. (2) Goals of care, counseling/discussion Current Visit: Yes Status: Acute Assessment and plan: Met with patient Angle,, daughters Elisa and Maria Antonia regarding goals of care. Dr. Harrison and Dr. Lorenz also attended. Family was updated on clinical status. He was living at home prior to admission, and had refused ECF. Family states had visiting home health nurse twice weekly, but no other services. They believe it was [facility]. Daughter states she thought that they were supposed to order PT for home, but this didn't take place. They have multiple DME in place at home, including hospital bed and Oxygen. Patient does not have advanced directives in place - but daughters state they would like to have this completed prior to leaving the hospital. He is full code, and family desires to continue current status at this time. Family understands that he is still critical and condition is fragile. Family also understands that his compliance has been an issue and without strict diet and fluids. We discussed that once patient is hopefully extubated we will have another discussion with the patient regarding goals of care and ensure that his wishes are documented. Family in agreement. Discussed that he will likely need rehab. Will continue to follow closely. (3) Charcot's joint, right ankle and foot Current Visit: No Status: Acute (4) Palliative care encounter Current Visit: Yes Status: Acute (5) COPD (chronic obstructive pulmonary disease) Current Visit: Yes Status: Acute Qualifiers: COPD type: unspecified COPD Qualified Code(s): J44.9 - Chronic obstructive pulmonary disease, unspecified (6) Acute and chronic respiratory failure with hypoxia Current Visit: Yes Status: Acute Assessment and plan: Pulmonology following and managing mechanical ventilation (7) Acute kidney injury superimposed on CKD Current Visit: Yes Status: Acute Assessment and plan: Continues with diuretic therapy - nephrology following closely - Time Spent With Patient Total time spent is greater than 50% in coordination of care (as documented) at patient's floor/unit and/or counseling patient: - Subjective Interval history: Patient remains sedated on vent, has appeared to try and open eyes a few times during my visit. Good urine output yesterday, renals slightly improved - nephrology following closely. Vitals stable. and 2 daughters at bedside. - Constitutional Vitals: Abnormal lab results WBC 13.0 K/mcL (4.3-11.1) H 02/28/19 03:52 RBC 2.95 M/mcL (4.19-5.50) L 02/28/19 03:52 Hgb 8.0 g/dL (12.9-16.9) L 02/28/19 03:52 Hct 24.8 % (37.5-50.1) L 02/28/19 03:52 MCH 27.1 pg (28.0-33.3) L 02/28/19 03:52 MCHC 31.1 g/dL (31.6-35.5) L 02/26/19 06:06 RDW 17.8 % (11.5-14.5) H 02/28/19 03:52 MPV 12.5 fL (9.4-12.4) H 02/27/19 06:38 Neutrophils # 12.1 K/mcL (1.6-8.9) H 02/28/19 03:52 Lymphocytes # 0.2 K/mcL (0.6-4.6) L 02/28/19 03:52 Monocytes # 1.5 K/mcL (0.0-1.3) H 02/25/19 02:22 Nucleated RBCs/100 WBC 0.4 /100 WBC (0) H 02/28/19 03:52 PT 13.5 Seconds (9.4-12.1) H 02/24/19 12:55 ABG pH 7.27 pH Units (7.32-7.45) L 02/27/19 05:02 ABG pCO2 48 mmHg (35-45) H 02/26/19 15:31 ABG pO2 139 mmHg (85-104) H 02/28/19 04:44 ABG HCO3 20 mEq/L (21-27) L 02/27/19 05:02 ABG O2 Saturation 99 % (95-98) H 02/28/19 04:44 ABG Base Excess -4 mEq/L (-2 to 3) L 02/28/19 04:44 VBG pCO2 28 mmHg (41-51) L 02/23/19 09:26 VBG pO2 131 mmHg (25-50) H 02/23/19 09:26 VBG HCO3 18 mEq/L (21-27) L 02/23/19 09:26 Sodium 132 mEq/L (136-145) L 02/28/19 03:52 Potassium 5.4 mEq/L (3.5-5.1) H 02/23/19 16:40 Chloride 96 mEq/L (98-107) L 02/27/19 06:38 Carbon Dioxide 19 mEq/L (23-29) L 02/28/19 03:52 BUN 83 mg/dL (8-23) H 02/28/19 03:52 Creatinine 3.19 mg/dL (0.70-1.30) H 02/28/19 03:52 Est GFR ( Amer) 24 (> 60) L 02/28/19 03:52 Est GFR (Non-Af Amer) 20 (> 60) L 02/28/19 03:52 Glucose 188 mg/dL (70-105) H 02/28/19 03:52 POC Glucose 253 mg/dL (70-99) H 02/28/19 12:34 Serum Osmolality 275 mOsm/kg (280-300) L 02/23/19 11:07 Calculated Osmolality 304 (280-300) H 02/28/19 03:52 Calcium 7.6 mg/dL (8.6-10.3) L 02/28/19 03:52 B-Natriuretic Peptide 633 pg/mL (Less than 100) H 02/22/19 10:13 Procalcitonin 1.33 ng/mL (0.00-0.15) H 02/26/19 14:10 Urine Clarity Cloudy (Clear) A 02/26/19 16:00 Urine Protein 30 mg/dL (Neg-Trace) H 02/26/19 16:00 Urine Blood Moderate (Negative) H 02/26/19 16:00 Ur Leukocyte Esterase Large (Negative) H 02/26/19 16:00 Urine Microscopic RBC 30-50 per hpf (0-3) H 02/26/19 16:00 Urine Microscopic WBC TNTC per hpf (0-3) H 02/26/19 16:00 Ur Squamous Epith Cells Moderate per lpf (None-Few) H 02/26/19 16:00 Ur Culture Indicated? YES (NO) A 02/26/19 16:00 Urine Osmolality 189 mOsm/kg (300-1090) L 02/23/19 12:42 Nasal Screen MRSA (PCR) DETECTED (Not Detect) A 02/23/19 12:26 Vancomycin Trough 21 mcg/mL (5-10) H 02/24/19 09:38 General appearance: Present: no acute distress - Respiratory Respiratory exam: Present: decreased breath sounds Additional comments: Breath sounds course throughout - Cardiovascular Cardiovascular exam: Present: +S1, +S2 - GI/Abdominal GI/Abdominal exam: Present: diminished bowel sounds, soft - Additional comments: Christensen patent with clear yellow urine Palliative Quality Palliative Quality: Screen for Code Status: NA (Patient sedated and intubated, no family present), Screen for Goals of Care: NA, Screen for Pain: Yes, If Pain Regimen Started, Initiate Bowel Regimen: NA, Screen for Nausea/Vomitting: NA Code Status: 02/23/19 07:14 CODE [Resuscitation Status: Active] [RES] Routine Comment: Resuscitation Status: Full Code - Labs CBC & Chem 7: 02/28/19 03:52 02/28/19 03:52 Labs: Laboratory Results - last 24 hr 02/27/19 02/27/19 02/27/19 15:59 20:23 23:12 WBC RBC Hgb Hct MCV MCH MCHC RDW Plt Count MPV Immature Gran % Seg Neutrophils % Lymphocytes % Monocytes % Eosinophils % Basophils % Neutrophils # Lymphocytes # Monocytes # Eosinophils # Basophils # Nucleated RBCs/100 WBC Sample Site ABG pH ABG pCO2 ABG pO2 ABG HCO3 ABG Total CO2 ABG O2 Saturation ABG Base Excess Prince Test Respiration Rate O2 Delivery Device Blood Gas Modality Inspired O2 Tidal Volume PEEP Sodium Potassium Chloride Carbon Dioxide BUN Creatinine Est GFR ( Amer) Est GFR (Non-Af Amer) BUN/Creatinine Ratio Glucose POC Glucose 256 H 237 H 205 H Calculated Osmolality Calcium Random Vancomycin 02/28/19 02/28/19 02/28/19 03:38 03:52 03:52 WBC 13.0 H RBC 2.95 L Hgb 8.0 L Hct 24.8 L MCV 84.1 MCH 27.1 L MCHC 32.3 RDW 17.8 H Plt Count 245 MPV 12.1 Immature Gran % 1.8 Seg Neutrophils % 93.0 Lymphocytes % 1.8 Monocytes % 3.4 Eosinophils % 0.0 Basophils % 0.0 Neutrophils # 12.1 H Lymphocytes # 0.2 L Monocytes # 0.4 Eosinophils # 0.0 Basophils # 0.0 Nucleated RBCs/100 WBC 0.4 H Sample Site ABG pH ABG pCO2 ABG pO2 ABG HCO3 ABG Total CO2 ABG O2 Saturation ABG Base Excess Prince Test Respiration Rate O2 Delivery Device Blood Gas Modality Inspired O2 Tidal Volume PEEP Sodium Potassium Chloride Carbon Dioxide BUN Creatinine Est GFR ( Amer) Est GFR (Non-Af Amer) BUN/Creatinine Ratio Glucose POC Glucose 194 H Calculated Osmolality Calcium Random Vancomycin 16 02/28/19 02/28/19 02/28/19 03:52 04:44 07:38 WBC RBC Hgb Hct MCV MCH MCHC RDW Plt Count MPV Immature Gran % Seg Neutrophils % Lymphocytes % Monocytes % Eosinophils % Basophils % Neutrophils # Lymphocytes # Monocytes # Eosinophils # Basophils # Nucleated RBCs/100 WBC Sample Site R Radial ABG pH 7.35 ABG pCO2 38 ABG pO2 139 H ABG HCO3 21 ABG Total CO2 22 ABG O2 Saturation 99 H ABG Base Excess -4 L Prince Test N/A Respiration Rate 24 O2 Delivery Device Adult Vent Blood Gas Modality ASSIST CONTROL Inspired O2 60.0 Tidal Volume 500 PEEP 12 Sodium 132 L Potassium 3.7 Chloride 99 Carbon Dioxide 19 L BUN 83 H Creatinine 3.19 H Est GFR ( Amer) 24 L Est GFR (Non-Af Amer) 20 L BUN/Creatinine Ratio 26 Glucose 188 H POC Glucose 193 H Calculated Osmolality 304 H Calcium 7.6 L Random Vancomycin 02/28/19 12:34 WBC RBC Hgb Hct MCV MCH MCHC RDW Plt Count MPV Immature Gran % Seg Neutrophils % Lymphocytes % Monocytes % Eosinophils % Basophils % Neutrophils # Lymphocytes # Monocytes # Eosinophils # Basophils # Nucleated RBCs/100 WBC Sample Site ABG pH ABG pCO2 ABG pO2 ABG HCO3 ABG Total CO2 ABG O2 Saturation ABG Base Excess Prince Test Respiration Rate O2 Delivery Device Blood Gas Modality Inspired O2 Tidal Volume PEEP Sodium Potassium Chloride Carbon Dioxide BUN Creatinine Est GFR ( Amer) Est GFR (Non-Af Amer) BUN/Creatinine Ratio Glucose POC Glucose 253 H Calculated Osmolality Calcium Random Vancomycin - Impressions Impressions Chest X-Ray 02/28/19 19:30 IMPRESSION: 1. Support devices are unchanged in position. 2. Persistent enlargement of the cardiac silhouette. 3. Patchy opacification in the lungs bilaterally, which appears slightly improved. 4. Likely trace pleural effusions. D/ / Jeremias Dai MD / Jeremias Dai MD Interpreting Provider: Jeremias Dai MD - ABG Interpretation ABG results: ABG ABG pH 7.35 pH Units (7.32-7.45) 02/28/19 04:44 ABG pCO2 38 mmHg (35-45) 02/28/19 04:44 ABG pO2 139 mmHg (85-104) H 02/28/19 04:44 ABG O2 Saturation 99 % (95-98) H 02/28/19 04:44 PT/INR, D-dimer PT 13.5 Seconds (9.4-12.1) H 02/24/19 12:55 Consult Discharge Plan - Plan Referrals: Myron Henderson [Primary Care Provider] -
[2019-02-28] MEDS: Dexmedetomidine HCl 400 MCG/100 ML MLS IVC SCH ×2 (13:43→20:14)
[2019-03-01] MEDS: Insulin LISPRO 300 UNITS/3 ML VIAL SQ SCH ×6 (03:06→23:25)
[2019-03-01] MEDS: Artificial Tears SOLN 15 ML BOTTLE BOTH EYES SCH ×6 (03:06→23:25)
[2019-03-01] MEDS: FentaNYL (PF) 1,000 MCG in 0.9 % Sodium Chloride 80 ML IVC SCH ×2 (03:09→17:47)
[2019-03-01] MEDS: Dexmedetomidine HCl 400 MCG/100 ML MLS IVC SCH ×4 (03:10→21:05)
[2019-03-01] MEDS: Ipratropium/Albuterol Neb 3 ML IH SCH ×6 (03:29→23:01)
[2019-03-01 04:40] LABS: ABG Base Excess -4 mEq/L (-2 to 3); ABG HCO3 22 mEq/L (21-27); ABG Oxygen Saturation 96 % (95-98); ABG PCO2 41 mmHg (35-45); ABG PH 7.34 pH Units (7.32-7.45); ABG PO2 86 mmHg (85-104); ABG TCO2 23 mEq/L (20-26); Blood Gas Modality ASSIST CONTROL; Blood Gas PEEP 10 cm H2O; Blood Gas VT 500 cc
[2019-03-01 04:55] LABS: Basophils % 0.1 %; Hematocrit 24.8 % (37.5-50.1); Hemoglobin 7.9 g/dL (12.9-16.9); Lymphocytes # 0.2 K/mcL (0.6-4.6); Lymphocytes % 1.4 %; Mean Corpuscular HGB Conc 31.9 g/dL (31.6-35.5); Mean Corpuscular Volume 84.6 fL (83.0-100.0); Mean Platelet Volume 12.8 fL (9.4-12.4); Monocytes # 0.4 K/mcL (0.0-1.3); Nucleated Red Blood Cells 0.4 /100 WBC (0); Platelet Count 225 K/mcL (140-400); Red Blood Count 2.93 M/mcL (4.19-5.50); Segmented Neutrophils % 94.5 %; White Blood Count 13.8 K/mcL (4.3-11.1)
[2019-03-01 05:09] LABS: Calcium 7.9 mg/dL (8.6-10.3); Potassium 3.6 mEq/L (3.5-5.1)
[2019-03-01] MEDS: *HR* Heparin 5,000 UNIT/ML VIAL SQ SCH ×3 (05:20→20:29)
[2019-03-01 05:38] LABS: Anisocytosis 1+ (Not Present); Hypochromasia Present (Not Present); Microcytosis Present (Not Present); Platelet Estimate Normal (Normal)
[2019-03-01] MEDS: Budesonide/Formoterol 160/4.5 1 PUFF INH IH SCH ×2 (07:40→19:41)
--- NOTE | 2019-03-01 07:51 | Pulmonology Progress Note ---
<ToddcarlosJesu judge W - Last Filed: 03/01/19 09:17> Date of Encounter: 03/01/19 Objective PUL Vital signs: Last Vital Signs Temp 98.3 F 03/01/19 07:15 Pulse 84 03/01/19 06:00 Resp 21 03/01/19 07:42 BP 127/48 03/01/19 07:42 Pulse Ox 96 03/01/19 07:42 Ventilator Settings Ventilator Settings: Ventilator Settings, Last 8 Hours Ventilator Tidal Volume 500 Setting Ventilator Tidal Volume 500 Setting Ventilator Tidal Volume 500 Setting Ventilator Tidal Volume 500 Setting Ventilator Tidal Volume 500 Setting Ventilator Tidal Volume 500 Setting Ventilator Tidal Volume 500 Setting Ventilator Tidal Volume 500 Setting Ventilator Tidal Volume 500 Setting Ventilator Tidal Volume 500 Setting Ventilator Respiratory Rate 18 Setting Ventilator Respiratory Rate 18 Setting Ventilator Respiratory Rate 18 Setting Ventilator Respiratory Rate 18 Setting Ventilator Respiratory Rate 18 Setting Ventilator Respiratory Rate 18 Setting Ventilator Respiratory Rate 18 Setting Ventilator Respiratory Rate 18 Setting Ventilator Respiratory Rate 18 Setting Ventilator Respiratory Rate 18 Setting Actual Respiratory Rate 21 Actual Respiratory Rate 19 Actual Respiratory Rate 22 Actual Respiratory Rate 20 Actual Respiratory Rate 20 Actual Respiratory Rate 19 Actual Respiratory Rate 21 Actual Respiratory Rate 21 Actual Respiratory Rate 21 Positive End Expiratory 10 Pressure Positive End Expiratory 10 Pressure Positive End Expiratory 10 Pressure Positive End Expiratory 10 Pressure Positive End Expiratory 10 Pressure Positive End Expiratory 10 Pressure Positive End Expiratory 10 Pressure Positive End Expiratory 10 Pressure Positive End Expiratory 10 Pressure Positive End Expiratory 10 Pressure Peak Inspiratory Airway 31 Pressure Peak Inspiratory Airway 45 Pressure Peak Inspiratory Airway 37 Pressure Peak Inspiratory Airway 38 Pressure Peak Inspiratory Airway 37 Pressure Peak Inspiratory Airway 36 Pressure Peak Inspiratory Airway 40 Pressure Peak Inspiratory Airway 50 Pressure Peak Inspiratory Airway 32 Pressure Results - Laboratory Findings CBC and BMP: 03/01/19 04:04 03/01/19 04:04 ABG ABG pH 7.34 pH Units (7.32-7.45) 03/01/19 04:36 ABG pCO2 41 mmHg (35-45) 03/01/19 04:36 ABG pO2 86 mmHg (85-104) 03/01/19 04:36 ABG O2 Saturation 96 % (95-98) 03/01/19 04:36 PT/INR, D-dimer PT 13.5 Seconds (9.4-12.1) H 02/24/19 12:55 Abnormal lab findings: Abnormal lab results WBC 13.8 K/mcL (4.3-11.1) H 03/01/19 04:04 RBC 2.93 M/mcL (4.19-5.50) L 03/01/19 04:04 Hgb 7.9 g/dL (12.9-16.9) L 03/01/19 04:04 Hct 24.8 % (37.5-50.1) L 03/01/19 04:04 MCH 27.0 pg (28.0-33.3) L 03/01/19 04:04 MCHC 31.1 g/dL (31.6-35.5) L 02/26/19 06:06 RDW 18.0 % (11.5-14.5) H 03/01/19 04:04 MPV 12.8 fL (9.4-12.4) H 03/01/19 04:04 Neutrophils # 13.0 K/mcL (1.6-8.9) H 03/01/19 04:04 Lymphocytes # 0.2 K/mcL (0.6-4.6) L 03/01/19 04:04 Monocytes # 1.5 K/mcL (0.0-1.3) H 02/25/19 02:22 Nucleated RBCs/100 WBC 0.4 /100 WBC (0) H 03/01/19 04:04 Hypochromasia Present (Not Present) A 03/01/19 04:04 Anisocytosis 1+ (Not Present) A 03/01/19 04:04 Microcytosis Present (Not Present) A 03/01/19 04:04 PT 13.5 Seconds (9.4-12.1) H 02/24/19 12:55 ABG pH 7.27 pH Units (7.32-7.45) L 02/27/19 05:02 ABG pCO2 48 mmHg (35-45) H 02/26/19 15:31 ABG pO2 139 mmHg (85-104) H 02/28/19 04:44 ABG HCO3 20 mEq/L (21-27) L 02/27/19 05:02 ABG O2 Saturation 99 % (95-98) H 02/28/19 04:44 ABG Base Excess -4 mEq/L (-2 to 3) L 03/01/19 04:36 VBG pCO2 28 mmHg (41-51) L 02/23/19 09:26 VBG pO2 131 mmHg (25-50) H 02/23/19 09:26 VBG HCO3 18 mEq/L (21-27) L 02/23/19 09:26 Sodium 132 mEq/L (136-145) L 02/28/19 03:52 Potassium 5.4 mEq/L (3.5-5.1) H 02/23/19 16:40 Chloride 96 mEq/L (98-107) L 02/27/19 06:38 Carbon Dioxide 20 mEq/L (23-29) L 03/01/19 04:04 BUN 110 mg/dL (8-23) H 03/01/19 04:04 Creatinine 3.51 mg/dL (0.70-1.30) H 03/01/19 04:04 Est GFR ( Amer) 21 (> 60) L 03/01/19 04:04 Est GFR (Non-Af Amer) 18 (> 60) L 03/01/19 04:04 BUN/Creatinine Ratio 31 (6-26) H 03/01/19 04:04 Glucose 212 mg/dL (70-105) H 03/01/19 04:04 POC Glucose 228 mg/dL (70-99) H 03/01/19 08:09 Serum Osmolality 275 mOsm/kg (280-300) L 02/23/19 11:07 Calculated Osmolality 325 (280-300) H 03/01/19 04:04 Calcium 7.9 mg/dL (8.6-10.3) L 03/01/19 04:04 Magnesium 2.7 mg/dL (1.6-2.6) H 02/28/19 16:06 B-Natriuretic Peptide 633 pg/mL (Less than 100) H 02/22/19 10:13 Procalcitonin 1.33 ng/mL (0.00-0.15) H 02/26/19 14:10 Urine Clarity Cloudy (Clear) A 02/26/19 16:00 Urine Protein 30 mg/dL (Neg-Trace) H 02/26/19 16:00 Urine Blood Moderate (Negative) H 02/26/19 16:00 Ur Leukocyte Esterase Large (Negative) H 02/26/19 16:00 Urine Microscopic RBC 30-50 per hpf (0-3) H 02/26/19 16:00 Urine Microscopic WBC TNTC per hpf (0-3) H 02/26/19 16:00 Ur Squamous Epith Cells Moderate per lpf (None-Few) H 02/26/19 16:00 Ur Culture Indicated? YES (NO) A 02/26/19 16:00 Urine Osmolality 189 mOsm/kg (300-1090) L 02/23/19 12:42 Nasal Screen MRSA (PCR) DETECTED (Not Detect) A 02/23/19 12:26 Vancomycin Trough 21 mcg/mL (5-10) H 02/24/19 09:38 - Microbiology Findings Microbiology Findings: Microbiology, Last 48 Hours 02/26/19 17:11 Sputum Culture - Final Sputum 02/22/19 10:54 Blood Culture - Final Peripheral Venipuncture No growth. Final report. 02/22/19 10:54 Blood Culture - Final Peripheral Venipuncture No growth. Final report. 02/26/19 16:00 Urine Culture - Final Urine,Clean Catch No growth. - Clinical Findings Intake & Output: Intake & Output 02/28/19 03/01/19 03/01/19 23:59 07:59 15:59 Intake Total 602 / 1719.4 408 / 528 120 / 528 Output Total 1150 / 2850 1100 / 1100 Balance -548 / -1130.6 -692 / -572 120 / -572 Weight 120.6 kg Consult Discharge Plan - Plan Referrals: Myron Henderson [Primary Care Provider] - - Attending Attestation I examined this patient and my medical decision-making was reviewed with the Resident Physician. I agree with the documented findings, disposition and treatment plan as described except to the extent set forth below. We independently had [id number] contact with the patient I spent 32min of Critical Care time with this patient. It involved decision making of high complexity to assess, manipulate, and support vital organ system failure and/or to prevent further life threatening deterioration of the nallely aguirre's condition. The time involved in the performance of separately reportable procedures was not counted toward critical care time. Patient seen and examined at bedside Labs, radiology, chart personally reviewed. Management was reviewed during multidisciplinary critical care rounds. 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 He has acceptable gas exchange today and we will try to further decrease PEEP/FiO2 ratio he continues to benefit from sedation ventilator mechanics are acceptable there is no significant intrinsic PEEP. Once patient is able to become more interactive with exam can perform spontaneous breathing trial Cards: Decompensated heart failure he is responding to diuretic I will continue to monitor blood pressure and diuresis tolerated by kidney function GI: GI prophylaxis given Nutrition: The new enteral nutrition per dietary recommendations Renal: Cute on chronic kidney injury with metabolic acidosis as a result. Unfortunately renal function has deteriorated overnight this is some degree likely a response to the diuretic which is needed for his respiratory status. There is a high probability patient would need dialysis at some point during this hospitalization no acute indication a day but will need to continue to follow closely appreciate nephrology evaluation of the patient UOP Monitored, Cont to Trend sCr and monitor Electrolytes. ID: He is being treated for pneumonia to complete 7-10 days of treatment Heme/Onc: Prophylaxis given blood counts are stable Endo: Glucose Monitored - Systemic glucocorticoid Integ/MSK: Skin Care per routine ICU Nursing Protocol to prevent ulcers. Lines: All lines examined without evidence of infection : Dispo: Monitor in ICU for critical illness CODE: Full code. I had an extensive conversation with the patient's healthcare proxies including his power of disability attorney and 2 adult daughters expressed my concern about the jewish of his medical history as of late with several admissions for decompensated respiratory failure and 2 occasions requiring mechanical ventilation palliative care service was also involved in his conversations all questions were answered at the bedside for now we will continue aggressive care but may need to modify treatment plans based upon clinical response. Overall prognosis is guarded <Lefty Sanchez - Last Filed: 03/01/19 15:35> Date of Encounter: 03/01/19 Time of Encounter: 06:15 Assessment and Plan (1) Encephalopathy Current Visit: Yes Status: Suspected -Consider secondary to uremia -CKD IV not on dialysis -Patient on Precedex and fentanyl -BUN and creatinine continue to rise Plan: Nephrology consulted. May need dialysis. Titrate sedation to [place] 2-3. (2) Acute and chronic respiratory failure with hypoxia Current Visit: Yes Status: Acute -likely due to infectious pneumonia vs. heart failure with preserved ejection fraction -Will defer CTA at this point as disease process more likely explained by other etiology and risk/benefit correlation in the setting of ERICK on CKD. -Failed BiPAP therapy. Intubated 02/25/19. -ABG showing resolution of major derangements save base deficit -4. Plan: Sedation with Dexmedetomidine, fentanyl. DuoNeb's. Symbicort. Optimize vent settings. Spontaneous breathing trial as patient becomes more interactive. (3) Pleural effusion Current Visit: No Status: Suspected -Suspected bilateral -CXR 02/28/19 read as likely trace bilateral effusions with some improvement of bilateral patchy opacities. -Continue to stabilize patient's respiratory status (4) Hospital-acquired pneumonia Current Visit: Yes Status: Suspected Plan as below (5) COPD (chronic obstructive pulmonary disease) Current Visit: Yes Status: Acute -Medications for acute respiratory failure as above. Do not suspect over COPD exacerbation at this point as clinical picture points more towards heart failure. -Continue to monitor Qualifiers: COPD type: unspecified COPD Qualified Code(s): J44.9 - Chronic obstructive pulmonary disease, unspecified (6) Acute on chronic diastolic (congestive) heart failure Current Visit: No Status: Suspected -Consider 2/2 infectious process -Patient admits baseline orthopnea, PND, leg swelling. Recent increased dyspnea -Troponin negative -BNP 611 -TSH WNL; A1c 04/10/18 7.6 -CXR 02/23/19 shows stable cardiomegaly -Echo 01/05/19: Suboptimal. LVEF 55%. Indeterminant diastolic function. Grossly mildly dilated right ventricle with normal function. Mild aortic stenosis. Mild pulmonary hypertension -Echo 02/26/19: Left ventricular ejection fraction 60%. Indeterminant diastolic function. Mild to moderate aortic stenosis, mild mitral regurg, mild tricuspid regurg. Borderline pulmonary hypertension. Plan: Metoprolol tartrate, aspirin, atorvastatin. No DARSHAN inhibitor secondary to CKD. Holding diuretics. (7) Atrial fibrillation Current Visit: No Status: Chronic -Chronic -Metoprolol rate control Plan: metoprolol 25 mg twice a day has been adequate Qualifiers: Atrial fibrillation type: chronic Qualified Code(s): I48.2 - Chronic atrial fibrillation (8) Hypertension Current Visit: No Status: Chronic -Chronic, stable -Continue to monitor Qualifiers: Hypertension type: essential hypertension Qualified Code(s): I10 - Essential (primary) hypertension (9) High anion gap metabolic acidosis Current Visit: Yes Status: Acute -resolved Background -Consider 2/2 uremia -Lactic acid within normal limits. Lab -ABG: As above Plan: Nephrology following. (10) Metabolic alkalosis Current Visit: Yes Status: Acute -Some continued base deficit Background -Consider due to initiation: diuresis, post-resp. acidosis // maintenance: Volume depletion. Also chronic compensation for COPD Lab -ABG: As above Plan: Consider Urine Cl level. Continue to monitor (11) Hyponatremia Current Visit: No Status: Acute -Acute on chronic -Searching for cause. Consider secondary to fluid overload state from heart failure with preserved ejection fraction. - 112 at the lowest. -Urine sodium 16.1, urine creatinine 33, urine osmolality low at 189. Will likely need repeat of these values after saline therapy. Consider some component of SIADH or glucocorticoid deficiency. -Nephrology is favoring component of polydipsia. Appreciate their recommendations Plan: Resolved. Salt tablets per nephrology. (12) Hyperkalemia Current Visit: Yes Status: Resolved -resolved after kayexalate therapy -Consider secondary to ERICK on CKD versus hypoaldosteronism -EKG 02/23/19: showed no peaked T waves. sinus rhythm. HR 70. no ST or T waves changes indicating ischemia. plan: Nephrology consulted. Continue to monitor (13) Acute kidney injury superimposed on CKD Current Visit: Yes Status: Acute -CKD stage IV -Consider secondary to cardiorenal syndrome -BUN/creatinine continues to worsen. Consider dialysis therapy. Plan: No DARSHAN inhibitor. Bumex discontinued. Nephrology consulted. Monitor urine output. (14) Sepsis Current Visit: No Status: Acute -Possibly secondary to hospital-acquired pneumonia versus chronic wound of right lower extremity -SIRS 2 out of 4: temp stable, pulse 105 on arrival, rr 20 on arrival, WBC within normal limits -lactic acid within normal limits -blood cultures 02/22/19 x2 negative final. -Pro calcitonin within normal limits. Legionella and Streptococcus pneumonia antigens negative. -CXR 02/22/19: Read as likely multifocal pneumonia versus pulmonary edema -CXR 02/26/19: Read as showing worsening diffuse airspace disease. -Repeat pro calcitonin elevated. Plan: vancomycin and cefepime completed 7 days. sputum sample did not meet criteria for culture. Qualifiers: Qualified Code(s): A41.9 - Sepsis, unspecified organism (15) Abscess of right foot Current Visit: No Status: Acute -Continue to monitor as concern for sepsis (16) Diabetes mellitus Current Visit: No Status: Chronic -Recent glucose levels elevated Plan: 30 units long-acting at bedtime with high-dose sliding scale. Qualifiers: Diabetes mellitus type: type 2 Diabetes mellitus shelter insulin use: with rodent exterminator use Diabetes mellitus complication status: with neurologic complications Diabetes mellitus complication detail: with polyneuropathy Qualified Code(s): E11.42 - Type 2 diabetes mellitus with diabetic polyneuropathy; Z79.4 - senior living (current) use of insulin Subjective Interval history: Intubation on 02/25/19 currently day 4. Patient sedated. Objective PUL Vital signs: Last Vital Signs Temp 98.3 F 03/01/19 07:15 Pulse 84 03/01/19 06:00 Resp 21 03/01/19 07:42 BP 127/48 03/01/19 07:42 Pulse Ox 96 03/01/19 07:42 Gen.: Elderly male. Sedated. Skin: Poor turgor. No obvious facial rash Eyes: Moist. Anicteric. Arcuate senilis Neck: Bilateral carotid bruits. JVD at least on the left. Questionable hepatojugular reflux Cardiac: Irregular rhythm. Non-tachycardic. 3/6 systolic murmur best heard over pulmonic post Respiratory: Coarse rhonchi throughout. Distant lung sounds in bases GI: Soft. Obese extremities: Capillary refill less than 2 seconds bilateral upper extremities. Edema somewhat improved but pitting to the knee bilaterally neuro: Jluis 5. Will open eyes slightly to voice and touch at certain times. #NEURO Encephalopathy -Consider secondary to uremia -CKD IV not on dialysis -Patient on Precedex and fentanyl -BUN and creatinine continue to rise Plan: Nephrology consulted. May need dialysis. Titrate sedation to [place] 2-3. #RESPIRATORY Acute and chronic respiratory failure with hypoxia -likely due to infectious pneumonia vs. heart failure with preserved ejection fraction -Will defer CTA at this point as disease process more likely explained by other etiology and risk/benefit correlation in the setting of ERICK on CKD. -Failed BiPAP therapy. Intubated 02/25/19. -ABG showing resolution of major derangements save base deficit -4. Plan: Sedation with Dexmedetomidine, fentanyl. DuoNeb's. Symbicort. Optimize vent settings. Spontaneous breathing trial as patient becomes more interactive. Pleural effusion -Suspected bilateral -CXR 02/28/19 read as likely trace bilateral effusions with some improvement of bilateral patchy opacities. -Continue to stabilize patient's respiratory status Hospital-acquired pneumonia Plan as above COPD (chronic obstructive pulmonary disease) -Medications for acute respiratory failure as above. Do not suspect over COPD exacerbation at this point as clinical picture points more towards heart failure. -Continue to monitor #CARDS Acute on chronic diastolic (congestive) heart failure -Consider 2/2 infectious process -Patient admits baseline orthopnea, PND, leg swelling. Recent increased dyspnea -Troponin negative -BNP 611 -TSH WNL; A1c 04/10/18 7.6 -CXR 02/23/19 shows stable cardiomegaly -Echo 01/05/19: Suboptimal. LVEF 55%. Indeterminant diastolic function. Grossly mildly dilated right ventricle with normal function. Mild aortic stenosis. Mild pulmonary hypertension -Echo 02/26/19: Left ventricular ejection fraction 60%. Indeterminant diastolic function. Mild to moderate aortic stenosis, mild mitral regurg, mild tricuspid regurg. Borderline pulmonary hypertension. Plan: Metoprolol tartrate, aspirin, atorvastatin. No DARSHAN inhibitor secondary to CKD. Holding diuretics. Atrial fibrillation -Chronic -Metoprolol rate control Plan: metoprolol 25 mg twice a day has been adequate Hypertension -Chronic, stable -Continue to monitor #GI -pantoprazole -Enteral nutrition. #RENAL High anion gap metabolic acidosis -resolved Background -Consider 2/2 uremia -Lactic acid within normal limits. Lab -ABG: As above Plan: Nephrology following. Metabolic alkalosis -Some continued base deficit Background -Consider due to initiation: diuresis, post-resp. acidosis // maintenance: Volume depletion. Also chronic compensation for COPD Lab -ABG: As above Plan: Consider Urine Cl level. Continue to monitor Hyponatremia -Acute on chronic -Searching for cause. Consider secondary to fluid overload state from heart failure with preserved ejection fraction. - 112 at the lowest. -Urine sodium 16.1, urine creatinine 33, urine osmolality low at 189. Will likely need repeat of these values after saline therapy. Consider some component of SIADH or glucocorticoid deficiency. -Nephrology is favoring component of polydipsia. Appreciate their recommendations Plan: Resolved. Salt tablets per nephrology. Hyperkalemia -resolved after kayexalate therapy -Consider secondary to ERICK on CKD versus hypoaldosteronism -EKG 02/23/19: showed no peaked T waves. sinus rhythm. HR 70. no ST or T waves changes indicating ischemia. plan: Nephrology consulted. Continue to monitor Acute kidney injury superimposed on CKD -CKD stage IV -Consider secondary to cardiorenal syndrome -BUN/creatinine continues to worsen. Consider dialysis therapy. Plan: No DARSHAN inhibitor. Bumex discontinued. Nephrology consulted. Monitor urine output. #ID Sepsis -Possibly secondary to hospital-acquired pneumonia versus chronic wound of right lower extremity -SIRS 2 out of 4: temp stable, pulse 105 on arrival, rr 20 on arrival, WBC within normal limits -lactic acid within normal limits -blood cultures 02/22/19 x2 negative final. -Pro calcitonin within normal limits. Legionella and Streptococcus pneumonia antigens negative. -CXR 02/22/19: Read as likely multifocal pneumonia versus pulmonary edema -CXR 02/26/19: Read as showing worsening diffuse airspace disease. -Repeat pro calcitonin elevated. Plan: vancomycin and cefepime completed 7 days. sputum sample did not meet criteria for culture. Abscess of right foot -Continue to monitor as concern for sepsis #HEME/ONC -subq heparin DVT ppx #ENDOCRINE Diabetes mellitus -Recent glucose levels elevated Plan: 30 units long-acting at bedtime with high-dose sliding scale. DISPO -cont to monitor in ICU for critical illness CODE -full code Ventilator Settings Ventilator Settings: Ventilator Settings, Last 8 Hours Ventilator Tidal Volume 500 Setting Ventilator Tidal Volume 500 Setting Ventilator Tidal Volume 500 Setting Ventilator Tidal Volume 500 Setting Ventilator Tidal Volume 500 Setting Ventilator Tidal Volume 500 Setting Ventilator Tidal Volume 500 Setting Ventilator Tidal Volume 500 Setting Ventilator Tidal Volume 500 Setting Ventilator Tidal Volume 500 Setting Ventilator Tidal Volume 500 Setting Ventilator Tidal Volume 500 Setting Ventilator Respiratory Rate 18 Setting Ventilator Respiratory Rate 18 Setting Ventilator Respiratory Rate 18 Setting Ventilator Respiratory Rate 18 Setting Ventilator Respiratory Rate 18 Setting Ventilator Respiratory Rate 18 Setting Ventilator Respiratory Rate 18 Setting Ventilator Respiratory Rate 18 Setting Ventilator Respiratory Rate 18 Setting Ventilator Respiratory Rate 18 Setting Ventilator Respiratory Rate 18 Setting Ventilator Respiratory Rate 18 Setting Actual Respiratory Rate 21 Actual Respiratory Rate 19 Actual Respiratory Rate 22 Actual Respiratory Rate 20 Actual Respiratory Rate 20 Actual Respiratory Rate 19 Actual Respiratory Rate 21 Actual Respiratory Rate 21 Actual Respiratory Rate 21 Actual Respiratory Rate 18 Actual Respiratory Rate 21 Positive End Expiratory 10 Pressure Positive End Expiratory 10 Pressure Positive End Expiratory 10 Pressure Positive End Expiratory 10 Pressure Positive End Expiratory 10 Pressure Positive End Expiratory 10 Pressure Positive End Expiratory 10 Pressure Positive End Expiratory 10 Pressure Positive End Expiratory 10 Pressure Positive End Expiratory 10 Pressure Positive End Expiratory 10 Pressure Positive End Expiratory 10 Pressure Peak Inspiratory Airway 31 Pressure Peak Inspiratory Airway 45 Pressure Peak Inspiratory Airway 37 Pressure Peak Inspiratory Airway 38 Pressure Peak Inspiratory Airway 37 Pressure Peak Inspiratory Airway 36 Pressure Peak Inspiratory Airway 40 Pressure Peak Inspiratory Airway 50 Pressure Peak Inspiratory Airway 32 Pressure Peak Inspiratory Airway 30 Pressure Peak Inspiratory Airway 11 Pressure Results - Laboratory Findings CBC and BMP: 03/01/19 04:04 03/01/19 04:04 ABG ABG pH 7.34 pH Units (7.32-7.45) 03/01/19 04:36 ABG pCO2 41 mmHg (35-45) 03/01/19 04:36 ABG pO2 86 mmHg (85-104) 03/01/19 04:36 ABG O2 Saturation 96 % (95-98) 03/01/19 04:36 PT/INR, D-dimer PT 13.5 Seconds (9.4-12.1) H 02/24/19 12:55 Abnormal lab findings: Abnormal lab results WBC 13.8 K/mcL (4.3-11.1) H 03/01/19 04:04 RBC 2.93 M/mcL (4.19-5.50) L 03/01/19 04:04 Hgb 7.9 g/dL (12.9-16.9) L 03/01/19 04:04 Hct 24.8 % (37.5-50.1) L 03/01/19 04:04 MCH 27.0 pg (28.0-33.3) L 03/01/19 04:04 MCHC 31.1 g/dL (31.6-35.5) L 02/26/19 06:06 RDW 18.0 % (11.5-14.5) H 03/01/19 04:04 MPV 12.8 fL (9.4-12.4) H 03/01/19 04:04 Neutrophils # 13.0 K/mcL (1.6-8.9) H 03/01/19 04:04 Lymphocytes # 0.2 K/mcL (0.6-4.6) L 03/01/19 04:04 Monocytes # 1.5 K/mcL (0.0-1.3) H 02/25/19 02:22 Nucleated RBCs/100 WBC 0.4 /100 WBC (0) H 03/01/19 04:04 Hypochromasia Present (Not Present) A 03/01/19 04:04 Anisocytosis 1+ (Not Present) A 03/01/19 04:04 Microcytosis Present (Not Present) A 03/01/19 04:04 PT 13.5 Seconds (9.4-12.1) H 02/24/19 12:55 ABG pH 7.27 pH Units (7.32-7.45) L 02/27/19 05:02 ABG pCO2 48 mmHg (35-45) H 02/26/19 15:31 ABG pO2 139 mmHg (85-104) H 02/28/19 04:44 ABG HCO3 20 mEq/L (21-27) L 02/27/19 05:02 ABG O2 Saturation 99 % (95-98) H 02/28/19 04:44 ABG Base Excess -4 mEq/L (-2 to 3) L 03/01/19 04:36 VBG pCO2 28 mmHg (41-51) L 02/23/19 09:26 VBG pO2 131 mmHg (25-50) H 02/23/19 09:26 VBG HCO3 18 mEq/L (21-27) L 02/23/19 09:26 Sodium 132 mEq/L (136-145) L 02/28/19 03:52 Potassium 5.4 mEq/L (3.5-5.1) H 02/23/19 16:40 Chloride 96 mEq/L (98-107) L 02/27/19 06:38 Carbon Dioxide 20 mEq/L (23-29) L 03/01/19 04:04 BUN 110 mg/dL (8-23) H 03/01/19 04:04 Creatinine 3.51 mg/dL (0.70-1.30) H 03/01/19 04:04 Est GFR ( Amer) 21 (> 60) L 03/01/19 04:04 Est GFR (Non-Af Amer) 18 (> 60) L 03/01/19 04:04 BUN/Creatinine Ratio 31 (6-26) H 03/01/19 04:04 Glucose 212 mg/dL (70-105) H 03/01/19 04:04 POC Glucose 198 mg/dL (70-99) H 03/01/19 03:00 Serum Osmolality 275 mOsm/kg (280-300) L 02/23/19 11:07 Calculated Osmolality 325 (280-300) H 03/01/19 04:04 Calcium 7.9 mg/dL (8.6-10.3) L 03/01/19 04:04 Magnesium 2.7 mg/dL (1.6-2.6) H 02/28/19 16:06 B-Natriuretic Peptide 633 pg/mL (Less than 100) H 02/22/19 10:13 Procalcitonin 1.33 ng/mL (0.00-0.15) H 02/26/19 14:10 Urine Clarity Cloudy (Clear) A 02/26/19 16:00 Urine Protein 30 mg/dL (Neg-Trace) H 02/26/19 16:00 Urine Blood Moderate (Negative) H 02/26/19 16:00 Ur Leukocyte Esterase Large (Negative) H 02/26/19 16:00 Urine Microscopic RBC 30-50 per hpf (0-3) H 02/26/19 16:00 Urine Microscopic WBC TNTC per hpf (0-3) H 02/26/19 16:00 Ur Squamous Epith Cells Moderate per lpf (None-Few) H 02/26/19 16:00 Ur Culture Indicated? YES (NO) A 02/26/19 16:00 Urine Osmolality 189 mOsm/kg (300-1090) L 02/23/19 12:42 Nasal Screen MRSA (PCR) DETECTED (Not Detect) A 02/23/19 12:26 Vancomycin Trough 21 mcg/mL (5-10) H 02/24/19 09:38 - Microbiology Findings Microbiology Findings: Microbiology, Last 48 Hours 02/26/19 17:11 Sputum Culture - Final Sputum 02/22/19 10:54 Blood Culture - Final Peripheral Venipuncture No growth. Final report. 02/22/19 10:54 Blood Culture - Final Peripheral Venipuncture No growth. Final report. 02/26/19 16:00 Urine Culture - Final Urine,Clean Catch No growth. - Clinical Findings Intake & Output: Intake & Output 02/28/19 02/28/19 03/01/19 15:59 23:59 07:59 Intake Total 461.4 / 1719.4 602 / 1719.4 408 / 408 Output Total 1050 / 2850 1150 / 2850 1100 / 1100 Balance -588.6 / -1130.6 -548 / -1130.6 -692 / -692 Weight 120.6 kg
[2019-03-01] MEDS: Chlorhexidine Rinse 15 ML MOUTHWASH MM SCH ×2 (08:04→20:29)
[2019-03-01] MEDS: Cefepime HCl 2,000 MG in Water for inj. (sterile) 20 ML IVP SCH (08:04)
[2019-03-01] MEDS: Multivit/Ca/Min/Fe/FA 1 TAB TABLET PO SCH (08:05)
[2019-03-01] MEDS: Insulin DETEMIR 100 UNIT/ML X5UNITS SQ SCH (08:05)
[2019-03-01] MEDS: Magnesium Oxide 400 MG TABLET PO SCH (08:05)
[2019-03-01] MEDS: Bumetanide 1 MG/4 ML VIAL IVP SCH (08:05)
[2019-03-01] MEDS: Pantoprazole 40 MG VIAL IVP SCH (08:05)
[2019-03-01] MEDS: Folic Acid 1 MG TABLET PO SCH (08:07)
[2019-03-01] MEDS: amLODIPine 5 MG TABLET PO SCH (08:07)
[2019-03-01] MEDS: Loratadine 10 MG TABLET PO SCH (08:07)
[2019-03-01] MEDS: FLUoxetine 20 MG CAPSULE PO SCH (08:10)
[2019-03-01] MEDS: Aspirin Enteric Coated 81 MG Tablet PO SCH (08:10)
[2019-03-01] MEDS ORDERED: Insulin DETEMIR 100 UNIT/ML X5UNITS SQ ONE (09:20)
[2019-03-01] MEDS: Docusate Oral Soln 100 MG/10 ML UDC PO SCH ×2 (11:28→20:29)
[2019-03-02] MEDS: Ipratropium/Albuterol Neb 3 ML IH SCH ×6 (03:16→23:33)
[2019-03-02] MEDS: Artificial Tears SOLN 15 ML BOTTLE BOTH EYES SCH ×6 (03:30→23:54)
[2019-03-02] MEDS: Dexmedetomidine HCl 400 MCG/100 ML MLS IVC SCH ×4 (03:30→22:31)
[2019-03-02] MEDS: Insulin LISPRO 300 UNITS/3 ML VIAL SQ SCH ×6 (03:30→23:55)
[2019-03-02 04:45] LABS: ABG Base Excess -2 mEq/L (-2 to 3); ABG HCO3 24 mEq/L (21-27); ABG Oxygen Saturation 98 % (95-98); ABG PCO2 42 mmHg (35-45); ABG PH 7.36 pH Units (7.32-7.45); ABG PO2 118 mmHg (85-104); ABG TCO2 25 mEq/L (20-26); Blood Gas Modality ASSIST CONTROL; Blood Gas PEEP 8 cm H2O; Blood Gas VT 500 cc
[2019-03-02] MEDS: *HR* Heparin 5,000 UNIT/ML VIAL SQ SCH ×3 (05:27→20:32)
[2019-03-02 06:15] LABS: Basophils % 0.1 %; Eosinophils # 0.4 K/mcL (0.0-0.6); Eosinophils % 2.5 %; Hematocrit 24.7 % (37.5-50.1); Hemoglobin 7.9 g/dL (12.9-16.9); Immature Granulocytes % 1.6 % (0-4); Lymphocytes # 0.5 K/mcL (0.6-4.6); Lymphocytes % 3.7 %; Mean Corpuscular Hemoglobin 27.3 pg (28.0-33.3); Mean Corpuscular Volume 85.5 fL (83.0-100.0); Mean Platelet Volume 13.2 fL (9.4-12.4); Monocytes # 1.2 K/mcL (0.0-1.3); Monocytes % 8.3 %; Nucleated Red Blood Cells 0.2 /100 WBC (0); Platelet Count 216 K/mcL (140-400); Red Blood Count 2.89 M/mcL (4.19-5.50); Red Cell Distribution Width 18.2 % (11.5-14.5); Segmented Neutrophils % 83.8 %; White Blood Count 14.3 K/mcL (4.3-11.1)
[2019-03-02 06:33] LABS: Calcium 7.9 mg/dL (8.6-10.3); Potassium 3.2 mEq/L (3.5-5.1)
--- NOTE | 2019-03-02 07:21 | Pulmonology Progress Note ---
<ChristyJesu W - Last Filed: 03/02/19 09:39> Date of Encounter: 03/02/19 Objective PUL Vital signs: Last Vital Signs Temp 97.7 F 03/02/19 07:58 Pulse 77 03/02/19 06:00 Resp 18 03/02/19 07:47 BP 120/51 03/02/19 07:47 Pulse Ox 99 03/02/19 07:47 Ventilator Settings Ventilator Settings: Ventilator Settings, Last 8 Hours Ventilator Tidal Volume 500 Setting Ventilator Tidal Volume 500 Setting Ventilator Tidal Volume 500 Setting Ventilator Tidal Volume 500 Setting Ventilator Tidal Volume 500 Setting Ventilator Tidal Volume 500 Setting Ventilator Tidal Volume 500 Setting Ventilator Tidal Volume 500 Setting Ventilator Tidal Volume 500 Setting Ventilator Tidal Volume 500 Setting Ventilator Respiratory Rate 18 Setting Ventilator Respiratory Rate 18 Setting Ventilator Respiratory Rate 18 Setting Ventilator Respiratory Rate 18 Setting Ventilator Respiratory Rate 18 Setting Ventilator Respiratory Rate 18 Setting Ventilator Respiratory Rate 18 Setting Ventilator Respiratory Rate 18 Setting Ventilator Respiratory Rate 18 Setting Ventilator Respiratory Rate 18 Setting Actual Respiratory Rate 18 Actual Respiratory Rate 18 Actual Respiratory Rate 20 Actual Respiratory Rate 18 Actual Respiratory Rate 18 Actual Respiratory Rate 21 Actual Respiratory Rate 21 Actual Respiratory Rate 21 Actual Respiratory Rate 24 Positive End Expiratory 8 Pressure Positive End Expiratory 8 Pressure Positive End Expiratory 8 Pressure Positive End Expiratory 8 Pressure Positive End Expiratory 8 Pressure Positive End Expiratory 8 Pressure Positive End Expiratory 8 Pressure Positive End Expiratory 8 Pressure Positive End Expiratory 8 Pressure Positive End Expiratory 8 Pressure Peak Inspiratory Airway 25 Pressure Peak Inspiratory Airway 16 Pressure Peak Inspiratory Airway 26 Pressure Peak Inspiratory Airway 29 Pressure Peak Inspiratory Airway 27 Pressure Peak Inspiratory Airway 26 Pressure Peak Inspiratory Airway 29 Pressure Peak Inspiratory Airway 28 Pressure Peak Inspiratory Airway 24 Pressure Results - Laboratory Findings CBC and BMP: 03/02/19 04:53 03/02/19 04:53 ABG ABG pH 7.36 pH Units (7.32-7.45) 03/02/19 04:41 ABG pCO2 42 mmHg (35-45) 03/02/19 04:41 ABG pO2 118 mmHg (85-104) H 03/02/19 04:41 ABG O2 Saturation 98 % (95-98) 03/02/19 04:41 PT/INR, D-dimer PT 13.5 Seconds (9.4-12.1) H 02/24/19 12:55 Abnormal lab findings: Abnormal lab results WBC 14.3 K/mcL (4.3-11.1) H 03/02/19 04:53 RBC 2.89 M/mcL (4.19-5.50) L 03/02/19 04:53 Hgb 7.9 g/dL (12.9-16.9) L 03/02/19 04:53 Hct 24.7 % (37.5-50.1) L 03/02/19 04:53 MCH 27.3 pg (28.0-33.3) L 03/02/19 04:53 MCHC 31.1 g/dL (31.6-35.5) L 02/26/19 06:06 RDW 18.2 % (11.5-14.5) H 03/02/19 04:53 MPV 13.2 fL (9.4-12.4) H 03/02/19 04:53 Neutrophils # 12.0 K/mcL (1.6-8.9) H 03/02/19 04:53 Lymphocytes # 0.5 K/mcL (0.6-4.6) L 03/02/19 04:53 Monocytes # 1.5 K/mcL (0.0-1.3) H 02/25/19 02:22 Nucleated RBCs/100 WBC 0.2 /100 WBC (0) H 03/02/19 04:53 Hypochromasia Present (Not Present) A 03/01/19 04:04 Anisocytosis 1+ (Not Present) A 03/01/19 04:04 Microcytosis Present (Not Present) A 03/01/19 04:04 PT 13.5 Seconds (9.4-12.1) H 02/24/19 12:55 ABG pH 7.27 pH Units (7.32-7.45) L 02/27/19 05:02 ABG pCO2 48 mmHg (35-45) H 02/26/19 15:31 ABG pO2 118 mmHg (85-104) H 03/02/19 04:41 ABG HCO3 20 mEq/L (21-27) L 02/27/19 05:02 ABG O2 Saturation 99 % (95-98) H 02/28/19 04:44 ABG Base Excess -4 mEq/L (-2 to 3) L 03/01/19 04:36 VBG pCO2 28 mmHg (41-51) L 02/23/19 09:26 VBG pO2 131 mmHg (25-50) H 02/23/19 09:26 VBG HCO3 18 mEq/L (21-27) L 02/23/19 09:26 Sodium 132 mEq/L (136-145) L 02/28/19 03:52 Potassium 3.2 mEq/L (3.5-5.1) L 03/02/19 04:53 Chloride 96 mEq/L (98-107) L 02/27/19 06:38 Carbon Dioxide 20 mEq/L (23-29) L 03/01/19 04:04 BUN 127 mg/dL (8-23) H 03/02/19 04:53 Creatinine 3.40 mg/dL (0.70-1.30) H 03/02/19 04:53 Est GFR ( Amer) 22 (> 60) L 03/02/19 04:53 Est GFR (Non-Af Amer) 18 (> 60) L 03/02/19 04:53 BUN/Creatinine Ratio 37 (6-26) H 03/02/19 04:53 Glucose 138 mg/dL (70-105) H 03/02/19 04:53 POC Glucose 114 mg/dL (70-99) H 03/02/19 08:00 Serum Osmolality 275 mOsm/kg (280-300) L 02/23/19 11:07 Calculated Osmolality 335 (280-300) H 03/02/19 04:53 Calcium 7.9 mg/dL (8.6-10.3) L 03/02/19 04:53 Magnesium 2.7 mg/dL (1.6-2.6) H 02/28/19 16:06 B-Natriuretic Peptide 633 pg/mL (Less than 100) H 02/22/19 10:13 Procalcitonin 1.33 ng/mL (0.00-0.15) H 02/26/19 14:10 Urine Clarity Cloudy (Clear) A 02/26/19 16:00 Urine Protein 30 mg/dL (Neg-Trace) H 02/26/19 16:00 Urine Blood Moderate (Negative) H 02/26/19 16:00 Ur Leukocyte Esterase Large (Negative) H 02/26/19 16:00 Urine Microscopic RBC 30-50 per hpf (0-3) H 02/26/19 16:00 Urine Microscopic WBC TNTC per hpf (0-3) H 02/26/19 16:00 Ur Squamous Epith Cells Moderate per lpf (None-Few) H 02/26/19 16:00 Ur Culture Indicated? YES (NO) A 02/26/19 16:00 Urine Osmolality 189 mOsm/kg (300-1090) L 02/23/19 12:42 Nasal Screen MRSA (PCR) DETECTED (Not Detect) A 02/23/19 12:26 Vancomycin Trough 21 mcg/mL (5-10) H 02/24/19 09:38 - Microbiology Findings Microbiology Findings: Microbiology, Last 48 Hours 02/26/19 17:11 Sputum Culture - Final Sputum - Clinical Findings Intake & Output: Intake & Output 03/01/19 03/02/19 03/02/19 23:59 07:59 15:59 Intake Total 853 / 2151 376 / 376 Output Total 1600 / 3500 1475 / 1475 Balance -747 / -1349 -1099 / -1099 Weight 119.3 kg Consult Discharge Plan - Plan Referrals: Myron Henderson [Primary Care Provider] - - Attending Attestation I examined this patient and my medical decision-making was reviewed with the Resident Physician. I agree with the documented findings, disposition and treatment plan as described except to the extent set forth below. We independently had [id number] contact with the patient I spent 32min of Critical Care time with this patient. It involved decision making of high complexity to assess, manipulate, and support vital organ system failure and/or to prevent further life threatening deterioration of the patient's condition. The time involved in the performance of separately reportable procedures was not counted toward critical care time. Patient seen and examined at bedside Labs, radiology, chart personally reviewed. Management was reviewed during multidisciplinary critical care rounds. WOODYARD OPERATOR: She remains encephalopathic which in large part is related to metabolic encephalopathy from uremia continue to hold sedation We will focus on voodoo of sleep-wake cycle. avoid sensory deprivation, and avoid WOODYARD OPERATOR depressant medications as able. Pulm: Remains intubated requiring lower FiO2 to be appreciated today with acceptable ventilator mechanics and gas exchange however failed CPAP trial likely secondary to underlying hydrostatic pulmonary edema Cards: Blood pressure monitored and stable he has decompensated heart failure w ith preserved ejection fraction will need to have continued diuresis and volume removal and optimization of blood pressure GI: GI prophylaxis given while on vent continue bowel regimen Nutrition: Continue enteral nutrition Renal: Chronic kidney injury patient remains encephalopathic and BUN now greater than 120 I believe he will need to temporary hemodialysis for clearance/volume management discussed with nephrology plan to place temporary HD catheter with interventional radiology today and (Angle) has given consent for the procedure UOP Monitored, Cont to Trend sCr and monitor Electrolytes. ID: Patient has completed a course of antibiotics for pneumonia and we will stop antibiotics at this time Heme/Onc: DVT prophylaxis given Endo: Glucose Monitored Integ/MSK: Skin Care per routine ICU Nursing Protocol to prevent ulcers. Lines: All lines examined without evidence of infection : Dispo: ICU for critical illness CODE: Full Code. (Angle) Updated on phone today <Lefty Sanchez - Last Filed: 03/02/19 11:50> Date of Encounter: 03/02/19 Time of Encounter: 07:00 Assessment and Plan (1) Encephalopathy Current Visit: Yes Status: Suspected (2) Acute and chronic respiratory failure with hypoxia Current Visit: Yes Status: Acute (3) Pleural effusion Current Visit: No Status: Suspected (4) Hospital-acquired pneumonia Current Visit: Yes Status: Suspected (5) COPD (chronic obstructive pulmonary disease) Current Visit: Yes Status: Acute Qualifiers: COPD type: unspecified COPD Qualified Code(s): J44.9 - Chronic obstructive pulmonary disease, unspecified (6) Acute on chronic diastolic (congestive) heart failure Current Visit: No Status: Suspected (7) Atrial fibrillation Current Visit: No Status: Chronic Qualifiers: Atrial fibrillation type: chronic Qualified Code(s): I48.2 - Chronic atrial fibrillation (8) Hypertension Current Visit: No Status: Chronic Qualifiers: Hypertension type: essential hypertension Qualified Code(s): I10 - Essential (primary) hypertension (9) High anion gap metabolic acidosis Current Visit: Yes Status: Resolved (10) Metabolic alkalosis Current Visit: Yes Status: Resolved (11) Hyponatremia Current Visit: No Status: Resolved (12) Hypokalemia Current Visit: Yes Status: Acute (13) Hyperkalemia Current Visit: Yes Status: Resolved (14) Acute kidney injury superimposed on CKD Current Visit: Yes Status: Acute (15) Sepsis Current Visit: No Status: Resolved Qualifiers: Qualified Code(s): A41.9 - Sepsis, unspecified organism (16) Abscess of right foot Current Visit: No Status: Acute (17) Diabetes mellitus Current Visit: No Status: Chronic Qualifiers: Diabetes mellitus type: type 2 Diabetes mellitus penitentiary insulin use: with buttermaker use Diabetes mellitus complication status: with neurologic complications Diabetes mellitus complication detail: with polyneuropathy Qualified Code(s): E11.42 - Type 2 diabetes mellitus with diabetic polyneuropathy; Z79.4 - penitentiary (current) use of insulin Subjective Interval history: Intubation on 02/25/19 currently day 5. Nursing reports no concerning events overnight. A trial of CPAP was performed and sustained for about 15 minutes but this had to be discontinued because his respiratory rate decreased. Patient is more alert this morning. He will squeeze my finger on command. I told him to squeeze my finger if he was in pain and he did so repeatedly. However when rev iewing the areas of the body he did not squeeze to indicate pain with any of them. We did this several times and in a very general fashion so that the major areas of the body were covered but no source of the pain was discovered based on finger squeeze. After conversing with him this morning he exhibited gag reflex. Objective PUL Vital signs: Last Vital Signs Temp 98.1 F 03/02/19 04:00 Pulse 77 03/02/19 06:00 Resp 18 03/02/19 06:00 BP 122/60 03/02/19 06:00 Pulse Ox 97 03/02/19 06:00 Gen.: Elderly male. Intubated. Skin: Poor turgor. No obvious facial rash some subdermal ecchymosis of right neck. Eyes: Moist. Anicteric. Arcuis senilis Neck: JVD. Bilateral carotid bruits Cardiac: Some irregular beats. Part of the exam seemed to be regular rhythm and part seemed to be irregular. 3/6 systolic murmur best heard over the pulmonic post Respiratory: Coarse breath sounds throughout. GI: Obese. Normoactive bowel sounds Extremities: Capillary refill less than 2 seconds upper extremities bilaterally. Bilateral lower extremity pitting edema to approximately the knee. Neuro: Squeezes finger on command. Seems to understand spoken words. Will not blink on command. Jluis 3 #NEURO Encephalopathy -Consider secondary to uremia -CKD IV not on dialysis -Patient on Precedex and fentanyl -BUN and creatinine continue to rise Plan: Nephrology consulted and will dialyze. Titrate sedation to Hunter 2-3. #RESPIRATORY Acute and chronic respiratory failure with hypoxia -likely due to infectious pneumonia vs. heart failure with preserved ejection fraction -Will defer CTA at this point as disease process more likely explained by other etiology and risk/benefit correlation in the setting of ERICK on CKD. -Failed BiPAP therapy. Intubated 02/25/19. -ABG showing resolution of major derangements save base deficit -4. Plan: Sedation with Dexmedetomidine, fentanyl. DuoNeb's. Symbicort. Optimize vent settings. Continue to decrease sedation and repeat spontaneous breathing trial. Pleural effusion -Suspected bilateral -CXR 02/28/19 read as likely trace bilateral effusions with some improvement of bilateral patchy opacities. -Continue to stabilize patient's respiratory status Hospital-acquired pneumonia Plan as above COPD (chronic obstructive pulmonary disease) -Medications for acute respiratory failure as above. Do not suspect over COPD exacerbation at this point as clinical picture points more towards heart failure. -Continue to monitor #CARDS Acute on chronic diastolic (congestive) heart failure -Consider 2/2 infectious process -Patient admits baseline orthopnea, PND, leg swelling. Recent increased dyspnea -Troponin negative -BNP 611 -TSH WNL; A1c 04/10/18 7.6 -CXR 02/23/19 shows stable cardiomegaly -Echo 01/05/19: Suboptimal. LVEF 55%. Indeterminant diastolic function. Grossly mildly dilated right ventricle with normal function. Mild aortic stenosis. Mild pulmonary hypertension -Echo 02/26/19: Left ventricular ejection fraction 60%. Indeterminant diastolic function. Mild to moderate aortic stenosis, mild mitral regurg, mild tricuspid regurg. Borderline pulmonary hypertension. Plan: Metoprolol tartrate, aspirin, atorvastatin. No DARSHAN inhibitor secondary to CKD. Optimize blood pressures with dialysis. Atrial fibrillation -Chronic -Metoprolol rate control Plan: metoprolol 25 mg twice a day has been adequate Hypertension -Chronic, stable -Continue to monitor #GI -pantoprazole -Enteral nutrition. #RENAL High anion gap metabolic acidosis -resolved Background -Consider 2/2 uremia -Lactic acid within normal limits. Lab -ABG: As above Plan: Nephrology following. Metabolic alkalosis -resolved Background -Consider due to initiation: diuresis, post-resp. acidosis // maintenance: Volume depletion. Also chronic compensation for COPD Lab -ABG: As above Plan: Consider Urine Cl level. Continue to monitor Hyponatremia -Acute on chronic -Consider secondary to fluid overload state from heart failure with preserved ejection fraction. -Urine sodium 16.1, urine creatinine 33, urine osmolality low at 189. Will likely need repeat of these values after saline therapy. Consider some component of SIADH or glucocorticoid deficiency. -Nephrology is favoring component of polydipsia. Appreciate their recommendations Plan: Resolved. Salt tablets per nephrology. Hyperkalemia -resolved after kayexalate therapy -Consider secondary to ERICK on CKD versus hypoaldosteronism -EKG 02/23/19: showed no peaked T waves. sinus rhythm. HR 70. no ST or T waves changes indicating ischemia. plan: Nephrology consulted. Continue to monitor Hypokalemia -consider 2/2 recent increase insulin dose vs. recent aggressive diuresis Plan: Continue telemetry. 40 IV potassium. Check magnesium. Recheck and continue to monitor. Acute kidney injury superimposed on CKD -CKD stage IV -Consider secondary to cardiorenal syndrome -BUN continues to worsen. -bumex d/c'd 03/01/19 Plan: No DARSHAN inhibitor. Nephrology consulted and will dialyze. Monitor urine output. #ID Sepsis -Resolved -Possibly secondary to hospital-acquired pneumonia versus chronic wound of right lower extremity -SIRS 2 out of 4: temp stable, pulse 105 on arrival, rr 20 on arrival, WBC within normal limits -lactic acid within normal limits -blood cultures 02/22/19 x2 negative final. -Pro calcitonin within normal limits. Legionella and Streptococcus pneumonia antigens negative. -CXR 02/22/19: Read as likely multifocal pneumonia versus pulmonary edema -CXR 02/26/19: Read as showing worsening diffuse airspace disease. -Repeat pro calcitonin elevated. -vancomycin and cefepime completed 7 days Plan: sputum sample did not meet criteria for culture. Abscess of right foot -Continue to monitor as concern for sepsis #HEME/ONC -subq heparin DVT ppx #ENDOCRINE Diabetes mellitus -Recent glucose acceptable Plan: continue 30 units long-acting at bedtime with high-dose sliding scale. DISPO -cont to monitor in ICU for critical illness CODE -full code Ventilator Settings Ventilator Settings: Ventilator Settings, Last 8 Hours Ventilator Tidal Volume 500 Setting Ventilator Tidal Volume 500 Setting Ventilator Tidal Volume 500 Setting Ventilator Tidal Volume 500 Setting Ventilator Tidal Volume 500 Setting Ventilator Tidal Volume 500 Setting Ventilator Tidal Volume 500 Setting Ventilator Tidal Volume 500 Setting Ventilator Tidal Volume 500 Setting Ventilator Tidal Volume 500 Setting Ventilator Tidal Volume 500 Setting Ventilator Respiratory Rate 18 Setting Ventilator Respiratory Rate 18 Setting Ventilator Respiratory Rate 18 Setting Ventilator Respiratory Rate 18 Setting Ventilator Respiratory Rate 18 Setting Ventilator Respiratory Rate 18 Setting Ventilator Respiratory Rate 18 Setting Ventilator Respiratory Rate 18 Setting Ventilator Respiratory Rate 18 Setting Ventilator Respiratory Rate 18 Setting Ventilator Respiratory Rate 18 Setting Actual Respiratory Rate 18 Actual Respiratory Rate 20 Actual Respiratory Rate 18 Actual Respiratory Rate 18 Actual Respiratory Rate 21 Actual Respiratory Rate 21 Actual Respiratory Rate 21 Actual Respiratory Rate 24 Actual Respiratory Rate 19 Actual Respiratory Rate 20 Positive End Expiratory 8 Pressure Positive End Expiratory 8 Pressure Positive End Expiratory 8 Pressure Positive End Expiratory 8 Pressure Positive End Expiratory 8 Pressure Positive End Expiratory 8 Pressure Positive End Expiratory 8 Pressure Positive End Expiratory 8 Pressure Positive End Expiratory 8 Pressure Positive End Expiratory 8 Pressure Positive End Expiratory 8 Pressure Peak Inspiratory Airway 16 Pressure Peak Inspiratory Airway 26 Pressure Peak Inspiratory Airway 29 Pressure Peak Inspiratory Airway 27 Pressure Peak Inspiratory Airway 26 Pressure Peak Inspiratory Airway 29 Pressure Peak Inspiratory Airway 28 Pressure Peak Inspiratory Airway 24 Pressure Peak Inspiratory Airway 22 Pressure Peak Inspiratory Airway 29 Pressure Results - Laboratory Findings CBC and BMP: 03/02/19 04:53 03/02/19 04:53 ABG ABG pH 7.36 pH Units (7.32-7.45) 03/02/19 04:41 ABG pCO2 42 mmHg (35-45) 03/02/19 04:41 ABG pO2 118 mmHg (85-104) H 03/02/19 04:41 ABG O2 Saturation 98 % (95-98) 03/02/19 04:41 PT/INR, D-dimer PT 13.5 Seconds (9.4-12.1) H 02/24/19 12:55 Abnormal lab findings: Abnormal lab results WBC 14.3 K/mcL (4.3-11.1) H 03/02/19 04:53 RBC 2.89 M/mcL (4.19-5.50) L 03/02/19 04:53 Hgb 7.9 g/dL (12.9-16.9) L 03/02/19 04:53 Hct 24.7 % (37.5-50.1) L 03/02/19 04:53 MCH 27.3 pg (28.0-33.3) L 03/02/19 04:53 MCHC 31.1 g/dL (31.6-35.5) L 02/26/19 06:06 RDW 18.2 % (11.5-14.5) H 03/02/19 04:53 MPV 13.2 fL (9.4-12.4) H 03/02/19 04:53 Neutrophils # 12.0 K/mcL (1.6-8.9) H 03/02/19 04:53 Lymphocytes # 0.5 K/mcL (0.6-4.6) L 03/02/19 04:53 Monocytes # 1.5 K/mcL (0.0-1.3) H 02/25/19 02:22 Nucleated RBCs/100 WBC 0.2 /100 WBC (0) H 03/02/19 04:53 Hypochromasia Present (Not Present) A 03/01/19 04:04 Anisocytosis 1+ (Not Present) A 03/01/19 04:04 Microcytosis Present (Not Present) A 03/01/19 04:04 PT 13.5 Seconds (9.4-12.1) H 02/24/19 12:55 ABG pH 7.27 pH Units (7.32-7.45) L 02/27/19 05:02 ABG pCO2 48 mmHg (35-45) H 02/26/19 15:31 ABG pO2 118 mmHg (85-104) H 03/02/19 04:41 ABG HCO3 20 mEq/L (21-27) L 02/27/19 05:02 ABG O2 Saturation 99 % (95-98) H 02/28/19 04:44 ABG Base Excess -4 mEq/L (-2 to 3) L 03/01/19 04:36 VBG pCO2 28 mmHg (41-51) L 02/23/19 09:26 VBG pO2 131 mmHg (25-50) H 02/23/19 09:26 VBG HCO3 18 mEq/L (21-27) L 02/23/19 09:26 Sodium 132 mEq/L (136-145) L 02/28/19 03:52 Potassium 3.2 mEq/L (3.5-5.1) L 03/02/19 04:53 Chloride 96 mEq/L (98-107) L 02/27/19 06:38 Carbon Dioxide 20 mEq/L (23-29) L 03/01/19 04:04 BUN 127 mg/dL (8-23) H 03/02/19 04:53 Creatinine 3.40 mg/dL (0.70-1.30) H 03/02/19 04:53 Est GFR ( Amer) 22 (> 60) L 03/02/19 04:53 Est GFR (Non-Af Amer) 18 (> 60) L 03/02/19 04:53 BUN/Creatinine Ratio 37 (6-26) H 03/02/19 04:53 Glucose 138 mg/dL (70-105) H 03/02/19 04:53 POC Glucose 156 mg/dL (70-99) H 03/02/19 03:23 Serum Osmolality 275 mOsm/kg (280-300) L 02/23/19 11:07 Calculated Osmolality 335 (280-300) H 03/02/19 04:53 Calcium 7.9 mg/dL (8.6-10.3) L 03/02/19 04:53 Magnesium 2.7 mg/dL (1.6-2.6) H 02/28/19 16:06 B-Natriuretic Peptide 633 pg/mL (Less than 100) H 02/22/19 10:13 Procalcitonin 1.33 ng/mL (0.00-0.15) H 02/26/19 14:10 Urine Clarity Cloudy (Clear) A 02/26/19 16:00 Urine Protein 30 mg/dL (Neg-Trace) H 02/26/19 16:00 Urine Blood Moderate (Negative) H 02/26/19 16:00 Ur Leukocyte Esterase Large (Negative) H 02/26/19 16:00 Urine Microscopic RBC 30-50 per hpf (0-3) H 02/26/19 16:00 Urine Microscopic WBC TNTC per hpf (0-3) H 02/26/19 16:00 Ur Squamous Epith Cells Moderate per lpf (None-Few) H 02/26/19 16:00 Ur Culture Indicated? YES (NO) A 02/26/19 16:00 Urine Osmolality 189 mOsm/kg (300-1090) L 02/23/19 12:42 Nasal Screen MRSA (PCR) DETECTED (Not Detect) A 02/23/19 12:26 Vancomycin Trough 21 mcg/mL (5-10) H 02/24/19 09:38 - Microbiology Findings Microbiology Findings: Microbiology, Last 48 Hours 02/26/19 17:11 Sputum Culture - Final Sputum - Clinical Findings Intake & Output: Intake & Output 03/01/19 03/01/19 03/02/19 15:59 23:59 07:59 Intake Total 890 / 2151 853 / 2151 376 / 376 Output Total 800 / 3500 1600 / 3500 625 / 625 Balance 90 / -1349 -747 / -1349 -249 / -249 Weight 119.3 kg
[2019-03-02] MEDS: FLUoxetine 20 MG CAPSULE PO SCH (07:33)
[2019-03-02] MEDS: Budesonide/Formoterol 160/4.5 1 PUFF INH IH SCH ×2 (07:46→19:44)
--- NOTE | 2019-03-02 08:00 | Nephrology Progress Note ---
Date of Encounter: 03/01/19 Time of Encounter: 12:00 - Assessment and Plan (1) Acute and chronic respiratory failure Current Visit: No Status: Resolved Vent settings per critical care Qualifiers: Respiratory failure complication: hypoxia Qualified Code(s): J96.21 - Acute and chronic respiratory failure with hypoxia (2) ERICK (acute kidney injury) Current Visit: No Status: Acute SCr noted elevated at 3.51 with BUN above 100 Agree with diuretics reduced from bumex 2mg bid to now daily Will reassess fcn tomorrow and consider ACTING SECTION CHIEF if needed Continue to avoid nephrotoxins if possible UOP noted great at 2850cc in the past 24hrs (3) Hyponatremia Current Visit: No Status: Acute Normalized at 137, will monitor (4) Hospital-acquired pneumonia Current Visit: Yes Status: Suspected Continue abx per primary but must dose vanco renally and monitor levels daily (5) Chronic kidney disease, stage IV (severe) Current Visit: No Status: Chronic Baseline GFR at 20s up to 30s on occasion Subjective Interval history: Pt seen and examined still intubated and sedated. No family members present at bedside. Objective - Vital Signs Vital signs: Vital Signs Temp Pulse Resp BP Pulse Ox 03/02/19 07:47 18 120/51 99 03/02/19 06:00 77 18 122/60 97 03/02/19 05:12 19 98 03/02/19 05:00 79 18 116/64 98 03/02/19 04:00 98.1 F 82 18 120/51 99 03/02/19 03:35 82 03/02/19 03:17 21 115/54 99 03/02/19 03:00 75 21 115/54 99 03/02/19 02:00 69 21 117/45 99 03/02/19 01:11 22 98 03/02/19 01:00 78 19 124/62 98 03/02/19 00:00 98.8 F 73 20 122/55 98 03/01/19 23:34 85 03/01/19 23:04 21 118/53 100 03/01/19 23:00 77 22 118/53 99 03/01/19 22:00 75 22 121/54 99 03/01/19 21:06 21 118/55 99 03/01/19 21:00 85 22 118/55 98 03/01/19 20:00 98.1 F 81 19 121/58 98 03/01/19 19:44 18 99 03/01/19 19:30 75 03/01/19 19:00 75 21 114/55 99 03/01/19 18:00 75 20 121/55 97 03/01/19 17:09 19 124/54 97 03/01/19 17:00 86 20 124/54 97 03/01/19 16:30 99.1 F 03/01/19 16:00 79 19 120/47 98 03/01/19 15:32 24 127/52 94 03/01/19 15:00 88 20 154/55 94 03/01/19 14:00 88 24 124/61 93 03/01/19 13:36 24 133/59 95 03/01/19 13:00 87 18 124/66 95 03/01/19 12:00 90 20 131/56 94 03/01/19 11:54 91 03/01/19 11:25 22 111/64 90 03/01/19 11:00 91 23 111/64 93 03/01/19 10:00 90 21 121/58 92 03/01/19 09:30 20 97 03/01/19 09:00 79 18 121/48 96 03/01/19 08:00 79 20 120/52 6 Intake and Output 03/01/19 03/01/19 03/02/19 15:59 23:59 07:59 Intake Total 890 / 2151 853 / 2151 376 / 376 Output Total 800 / 3500 1600 / 3500 625 / 625 Balance 90 / -1349 -747 / -1349 -249 / -249 Intake: IV Fluids 220 / 620 200 / 620 140 / 140 Precedex Premix 400 mcg In 100 200 / 400 100 / 400 100 / 100 ml @ 0.1 MCG/KG/HR 3.108 mls/hr IVC .Q24H [facility] Rx#:[id number] FentaNYL (PF) 1,000 MCG In 0.9 100 / 200 40 / 40 % Sodium Chloride 80 ML @ 50 MCG/HR 5 mls/hr IVC CONT [facility] Rx #:[id number] Maxipime 2,000 MG In Water for 20 / 20 inj. (sterile) 20 ML @ 300 mls/ hr IVP Q24H [facility] Rx#:[id number] Tube Feeding 570 / 1431 653 / 1431 236 / 236 Free Water Intake Amount 100 / 100 Output: Catheter 800 / 3500 1600 / 3500 625 / 625 Other: Weight 119.3 kg Blood Glucose* 261 132 156 Patient Weight 03/02/19 23:59 Weight 119.3 kg - General Appearance General appearance: Present: sedated on ventilator, intubated EENT: Present: ATNC, mucous membranes moist Neck: Present: no JVD, supple Additional Comments: good areation ant bilat Cardiology: Present: edema (LE improving bilat), normal S1, normal S2 Gastrointestinal: Present: no tenderness, no guarding, obese Integumentary: Present: warm and dry Additional Comments: sedated Musculoskeletal: Present: no deformities Additional Comments: sedated - Lab 03/02/19 04:53 03/02/19 04:53 Most recent lab results 03/02/19 03/02/19 04:41 04:53 ABG pH 7.36 ABG pCO2 42 ABG pO2 118 H ABG HCO3 24 ABG O2 Saturation 98 Calcium 7.9 L Consult Discharge Plan - Plan Referrals: Myron Henderson [Primary Care Provider] -
--- NOTE | 2019-03-02 08:01 | Nephrology Progress Note ---
Date of Encounter: 02/28/19 Time of Encounter: 12:00 - Assessment and Plan (1) Acute and chronic respiratory failure Current Visit: No Status: Resolved Vent settings per critical care Qualifiers: Respiratory failure complication: hypoxia Qualified Code(s): J96.21 - Acute and chronic respiratory failure with hypoxia (2) ERICK (acute kidney injury) Current Visit: No Status: Acute SCr noted slightly improved at 3.19 with diuresis, will continue Agree with diuretics currently bumex 2mg bid, will monitor daily for adjustments Will reassess fxn daily and consider PRESSING DEPARTMENT SUPERVISOR if needed Continue to avoid nephrotoxins if possible UOP noted great at 3250cc in the past 24hrs (3) Hyponatremia Current Visit: No Status: Resolved Improving at 132, will monitor. Would likely improve more with diuresis (4) Hospital-acquired pneumonia Current Visit: Yes Status: Suspected Continue abx per primary but must dose vanco renally and monitor levels daily (5) Chronic kidney disease, stage IV (severe) Current Visit: No Status: Chronic Baseline GFR at 20s up to 30s on occasion Subjective Interval history: Pt seen and examined still intubated and sedated with family members present at bedside along with palliative care, pulm teams. Goals of care discussed. Objective - Vital Signs Vital signs: Vital Signs Temp Pulse Resp BP Pulse Ox 03/02/19 07:47 18 120/51 99 03/02/19 06:00 77 18 122/60 97 03/02/19 05:12 19 98 03/02/19 05:00 79 18 116/64 98 03/02/19 04:00 98.1 F 82 18 120/51 99 03/02/19 03:35 82 03/02/19 03:17 21 115/54 99 03/02/19 03:00 75 21 115/54 99 03/02/19 02:00 69 21 117/45 99 03/02/19 01:11 22 98 03/02/19 01:00 78 19 124/62 98 03/02/19 00:00 98.8 F 73 20 122/55 98 03/01/19 23:34 85 03/01/19 23:04 21 118/53 100 03/01/19 23:00 77 22 118/53 99 03/01/19 22:00 75 22 121/54 99 03/01/19 21:06 21 118/55 99 03/01/19 21:00 85 22 118/55 98 03/01/19 20:00 98.1 F 81 19 121/58 98 03/01/19 19:44 18 99 03/01/19 19:30 75 03/01/19 19:00 75 21 114/55 99 03/01/19 18:00 75 20 121/55 97 03/01/19 17:09 19 124/54 97 03/01/19 17:00 86 20 124/54 97 03/01/19 16:30 99.1 F 03/01/19 16:00 79 19 120/47 98 03/01/19 15:32 24 127/52 94 03/01/19 15:00 88 20 154/55 94 03/01/19 14:00 88 24 124/61 93 03/01/19 13:36 24 133/59 95 03/01/19 13:00 87 18 124/66 95 03/01/19 12:00 90 20 131/56 94 03/01/19 11:54 91 03/01/19 11:25 22 111/64 90 03/01/19 11:00 91 23 111/64 93 03/01/19 10:00 90 21 121/58 92 03/01/19 09:30 20 97 03/01/19 09:00 79 18 121/48 96 Intake and Output 03/01/19 03/02/19 03/02/19 23:59 07:59 15:59 Intake Total 853 / 2151 376 / 376 Output Total 1600 / 3500 625 / 625 Balance -747 / -1349 -249 / -249 Intake: IV Fluids 200 / 620 140 / 140 Precedex Premix 400 mcg In 100 100 / 400 100 / 100 ml @ 0.1 MCG/KG/HR 3.108 mls/hr IVC .Q24H [facility] Rx#:[id number] FentaNYL (PF) 1,000 MCG In 0.9 100 / 200 40 / 40 % Sodium Chloride 80 ML @ 50 MCG/HR 5 mls/hr IVC CONT [facility] Rx #:[id number] Tube Feeding 653 / 1431 236 / 236 Output: Catheter 1600 / 3500 625 / 625 Other: Weight 119.3 kg Blood Glucose* 132 156 Patient Weight 03/02/19 23:59 Weight 119.3 kg - General Appearance General appearance: Present: sedated on ventilator, intubated EENT: Present: ATNC, mucous membranes moist Neck: Present: no JVD, supple Respiratory: Present: course breath sounds Cardiology: Present: edema (LE edema bilat), normal S1, normal S2 Gastrointestinal: Present: no tenderness, no guarding, obese Integumentary: Present: warm and dry Additional Comments: sedated Musculoskeletal: Present: no deformities Additional Comments: sedated - Lab 03/02/19 04:53 03/02/19 04:53 Most recent lab results 03/02/19 03/02/19 04:41 04:53 ABG pH 7.36 ABG pCO2 42 ABG pO2 118 H ABG HCO3 24 ABG O2 Saturation 98 Calcium 7.9 L Consult Discharge Plan - Plan Referrals: Myron Henderson [Primary Care Provider] -
[2019-03-02] MEDS: amLODIPine 5 MG TABLET PO SCH (08:44)
[2019-03-02] MEDS: Loratadine 10 MG TABLET PO SCH (08:44)
[2019-03-02] MEDS: Pantoprazole 40 MG VIAL IVP SCH (08:44)
[2019-03-02] MEDS: Magnesium Oxide 400 MG TABLET PO SCH (08:44)
[2019-03-02] MEDS: Folic Acid 1 MG TABLET PO SCH (08:44)
[2019-03-02] MEDS: Docusate Oral Soln 100 MG/10 ML UDC PO SCH ×2 (08:44→20:32)
[2019-03-02] MEDS: Multivit/Ca/Min/Fe/FA 1 TAB TABLET PO SCH (08:44)
[2019-03-02] MEDS: Chlorhexidine Rinse 15 ML MOUTHWASH MM SCH ×2 (08:44→20:32)
[2019-03-02] MEDS: Aspirin Enteric Coated 81 MG Tablet PO SCH (08:45)
[2019-03-02] MEDS: Insulin DETEMIR 100 UNIT/ML X5UNITS SQ SCH (08:46)
[2019-03-02] MEDS ORDERED: *HR* Heparin 5,000 UNIT/ML VIAL ONE (10:25)
--- NOTE | 2019-03-02 10:48 | IR Procedure Note ---
Date of procedure: 03/02/19 Consent Obtained: Verbal consent Timeout: Correct patient and procedure verified, Correct site verified, Time out performed, Skin prep completed Local anesthetic: Lidocaine 1% Was there an educational program assistant present: Yes Bladder Changer: Miguel Wagner Estimated blood loss (cc): 3 Complications: None; Tolerated procedure well Indications: Renal insufficiency Procedure Performed: Temp HD catheter placement Site/Technique: RIJV used for access Results/Findings (any specimens removed): Working well. 20cm cath placed. Post Procedure Treatment Plan: Monitoring in pts room Specimen: na
--- NOTE | 2019-03-02 10:58 | Nephrology Progress Note ---
Date of Encounter: 03/02/19 Time of Encounter: 10:55 - Assessment and Plan (1) ERICK (acute kidney injury) Current Visit: No Status: Acute Patient with multifactorial acute kidney injury superimposed on chronic kidney disease. His creatinine continues to rise along with his BUN despite improvement in urine output. He appears to be euvolemic and I do not think he needs additional fluids as time. I do think the patient would benefit from dialysis for clearance of his azotemia. Patient's dialysis catheter has been placed by interventional radiology. I we will initiate hemodialysis today. We will monitor daily for the need for additional dialysis sessions. Avoid unnecessary nephrotoxic agents. Renal dose medications. 31 minutes spent in the care of this critically ill patient. (2) Hyponatremia Current Visit: No Status: Acute Resolved (3) Chronic kidney disease, stage IV (severe) Current Visit: No Status: Chronic Baseline GFR at 20s up to 30s on occasion (4) Acute and chronic respiratory failure Current Visit: No Status: Resolved Vent settings per critical care Qualifiers: Respiratory failure complication: hypoxia Qualified Code(s): J96.21 - Acute and chronic respiratory failure with hypoxia (5) Hospital-acquired pneumonia Current Visit: Yes Status: Suspected Continue abx per primary but must dose vanco renally and monitor levels daily (6) Hyperkalemia Current Visit: Yes Status: Resolved Subjective Principal diagnosis: ERICK Interval history: Patient seen and evaluated. He is intubated and sedated. Review of systems is unobtainable. Objective - Vital Signs Vital signs: Vital Signs Temp Pulse Resp BP Pulse Ox 03/02/19 10:00 79 18 91/76 95 03/02/19 09:44 18 112/55 97 03/02/19 09:00 88 18 122/53 96 03/02/19 08:00 79 18 126/56 98 03/02/19 07:58 97.7 F 03/02/19 07:47 18 120/51 99 03/02/19 07:00 81 18 123/69 97 03/02/19 06:00 77 18 122/60 97 03/02/19 05:12 19 98 03/02/19 05:00 79 18 116/64 98 03/02/19 04:00 98.1 F 82 18 120/51 99 03/02/19 03:35 82 03/02/19 03:17 21 115/54 99 03/02/19 03:00 75 21 115/54 99 03/02/19 02:00 69 21 117/45 99 03/02/19 01:11 22 98 03/02/19 01:00 78 19 124/62 98 03/02/19 00:00 98.8 F 73 20 122/55 98 03/01/19 23:34 85 03/01/19 23:04 21 118/53 100 03/01/19 23:00 77 22 118/53 99 03/01/19 22:00 75 22 121/54 99 03/01/19 21:06 21 118/55 99 03/01/19 21:00 85 22 118/55 98 03/01/19 20:00 98.1 F 81 19 121/58 98 03/01/19 19:44 18 99 03/01/19 19:30 75 03/01/19 19:00 75 21 114/55 99 03/01/19 18:00 75 20 121/55 97 03/01/19 17:09 19 124/54 97 03/01/19 17:00 86 20 124/54 97 03/01/19 16:30 99.1 F 03/01/19 16:00 79 19 120/47 98 03/01/19 15:32 24 127/52 94 03/01/19 15:00 88 20 154/55 94 03/01/19 14:00 88 24 124/61 93 03/01/19 13:36 24 133/59 95 03/01/19 13:00 87 18 124/66 95 03/01/19 12:00 90 20 131/56 94 03/01/19 11:54 91 03/01/19 11:25 22 111/64 90 03/01/19 11:00 91 23 111/64 93 Intake and Output 03/01/19 03/02/19 03/02/19 23:59 07:59 15:59 Intake Total 853 / 2151 376 / 376 Output Total 1600 / 3500 1475 / 1475 Balance -747 / -1349 -1099 / -1099 Intake: IV Fluids 200 / 620 140 / 140 Precedex Premix 400 mcg In 100 100 / 400 100 / 100 ml @ 0.1 MCG/KG/HR 3.108 mls/hr IVC .Q24H [facility] Rx#:[id number] FentaNYL (PF) 1,000 MCG In 0.9 100 / 200 40 / 40 % Sodium Chloride 80 ML @ 50 MCG/HR 5 mls/hr IVC CONT [facility] Rx #:[id number] Tube Feeding 653 / 1431 236 / 236 Output: Catheter 1600 / 3500 1475 / 1475 Gastric Drainage 0 / 0 Other: Weight 119.3 kg Blood Glucose* 132 114 Patient Weight 03/02/19 23:59 Weight 119.3 kg - General Appearance General appearance: Present: well-developed, well-nourished, obese, sedated on ventilator, intubated EENT: Present: ATNC Neck: Present: supple Respiratory: Present: course breath sounds Cardiology: Present: no edema, regular rate Dialysis Vascular Access: Venous Catheter Gastrointestinal: Present: no tenderness, obese Integumentary: Present: warm and dry Additional Comments: Patient is intubated and sedated Musculoskeletal: Present: no cyanosis Additional Comments: Patient intubated and sedated - Lab 03/02/19 04:53 03/02/19 04:53 Most recent lab results 03/02/19 03/02/19 04:41 04:53 ABG pH 7.36 ABG pCO2 42 ABG pO2 118 H ABG HCO3 24 ABG O2 Saturation 98 Calcium 7.9 L Consult Discharge Plan - Plan Referrals: Myron Henderson [Primary Care Provider] -
[2019-03-02] MEDS ORDERED: 0.9 % Sodium Chloride 250 ML IVC PRN (12:53)
[2019-03-02] MEDS ORDERED: *HR* Heparin 10,000 UNIT/10 ML VIAL IV PRN (12:53)
[2019-03-02] MEDS ORDERED: 0.9 % Sodium Chloride 1,000 ML PRIME SCH (13:00)
[2019-03-02 16:08] LABS: Hepatitis B Surface Antibody < 3.10 mIU/mL
[2019-03-02 16:20] LABS: Hepatitis B Surface Antigen Nonreactive (Nonreactive)
[2019-03-02] MEDS ORDERED: Potassium Chloride Elixir 20 MEQ/15 ML UDC PO ONE (16:24)
[2019-03-02] MEDS: FentaNYL (PF) 1,000 MCG in 0.9 % Sodium Chloride 80 ML IVC SCH (20:35)
[2019-03-03] MEDS: Ipratropium/Albuterol Neb 3 ML IH SCH ×5 (03:34→19:58)
[2019-03-03 04:23] LABS: Basophils % 0.1 %; Eosinophils # 0.9 K/mcL (0.0-0.6); Eosinophils % 5.8 %; Hematocrit 24.8 % (37.5-50.1); Immature Granulocytes % 2.2 % (0-4); Lymphocytes # 0.8 K/mcL (0.6-4.6); Lymphocytes % 4.8 %; Mean Corpuscular HGB Conc 32.3 g/dL (31.6-35.5); Mean Corpuscular Hemoglobin 27.6 pg (28.0-33.3); Mean Corpuscular Volume 85.5 fL (83.0-100.0); Mean Platelet Volume 12.5 fL (9.4-12.4); Monocytes # 1.2 K/mcL (0.0-1.3); Monocytes % 7.7 %; Neutrophils # 12.8 K/mcL (1.6-8.9); Platelet Count 205 K/mcL (140-400); Red Cell Distribution Width 18.1 % (11.5-14.5); Segmented Neutrophils % 79.4 %; White Blood Count 16.1 K/mcL (4.3-11.1)
[2019-03-03] MEDS: Insulin LISPRO 300 UNITS/3 ML VIAL SQ SCH ×5 (04:26→20:08)
[2019-03-03] MEDS: *HR* Heparin 5,000 UNIT/ML VIAL SQ SCH ×3 (04:27→21:10)
[2019-03-03] MEDS: Artificial Tears SOLN 15 ML BOTTLE BOTH EYES SCH ×5 (04:27→20:08)
[2019-03-03 04:38] LABS: Calcium 8.2 mg/dL (8.6-10.3); Potassium 3.6 mEq/L (3.5-5.1)
[2019-03-03] MEDS ORDERED: Potassium Chloride Elixir 20 MEQ/15 ML UDC GTUBE ONE (05:13)
[2019-03-03 05:26] LABS: ABG Base Excess 3 mEq/L (-2 to 3); ABG HCO3 27 mEq/L (21-27); ABG Oxygen Saturation 95 % (95-98); ABG PCO2 39 mmHg (35-45); ABG PH 7.46 pH Units (7.32-7.45); ABG PO2 71 mmHg (85-104); ABG TCO2 29 mEq/L (20-26); Blood Gas Modality AF; Blood Gas PEEP 5 cm H2O; Blood Gas VT 500 cc
[2019-03-03] MEDS: Dexmedetomidine HCl 400 MCG/100 ML MLS IVC SCH (06:14)
--- NOTE | 2019-03-03 06:54 | Pulmonology Progress Note ---
Date of Encounter: 03/03/19 Time of Encounter: 07:00 Assessment and Plan (1) Acute and chronic respiratory failure Current Visit: No Status: Acute This is improving he was liberated from the vent today continue BiPAP when sleeping Qualifiers: Respiratory failure complication: hypoxia Qualified Code(s): J96.21 - Acute and chronic respiratory failure with hypoxia (2) Acute on chronic diastolic (congestive) heart failure Current Visit: No Status: Suspected Appears euvolemic on exam holding diuresis now we will continue to trend blood pressure (3) COPD (chronic obstructive pulmonary disease) Current Visit: Yes Status: Acute Continue combination inhaler Qualifiers: COPD type: unspecified COPD Qualified Code(s): J44.9 - Chronic obstructive pulmonary disease, unspecified (4) Hospital-acquired pneumonia Current Visit: Yes Status: Suspected His finished a course of antibiotics for this (5) Acute kidney injury superimposed on CKD Current Visit: Yes Status: Acute Underwent dialysis yesterday nephrology following indication for dialysis today continue to follow urine output which is been excellent trend electrolytes (6) Encephalopathy Current Visit: Yes Status: Suspected This is resolving this combination of metabolic derangements and sepsis (7) Goals of care, counseling/discussion Current Visit: Yes Status: Acute Remains full code once patient able to be taken off BiPAP and interacts conversation will have a discussion regarding goals of care moving forward I have begun this conversation with his and daughters and prior to his extubation Subjective Principal diagnosis: ERICK Interval history: Underwent dialysis yesterday after clearance noted to have improvement in mental status able to follow commands and interact with my examination today Objective PUL Vital signs: Last Vital Signs Temp 98.3 F 03/03/19 04:00 Pulse 81 03/03/19 06:00 Resp 19 03/03/19 06:00 BP 141/57 03/03/19 06:00 Pulse Ox 94 03/03/19 06:00 General appearance: no acute distress Eyes: nonicteric Neck: JVD Auscultation: bilateral: rales Cardiovascular: regular rate and rhythm Gastrointestinal: normoactive bowel sounds, soft Integumentary: normal Extremities: no cyanosis, pulses normal, edema normal mental status, non-focal exam mood appropriate Ventilator Settings Ventilator Settings: Ventilator Settings, Last 8 Hours Ventilator Tidal Volume 500 Setting Ventilator Tidal Volume 500 Setting Ventilator Tidal Volume 500 Setting Ventilator Tidal Volume 500 Setting Ventilator Tidal Volume 500 Setting Ventilator Tidal Volume 500 Setting Ventilator Tidal Volume 500 Setting Ventilator Tidal Volume 500 Setting Ventilator Tidal Volume 500 Setting Ventilator Respiratory Rate 18 Setting Ventilator Respiratory Rate 18 Setting Ventilator Respiratory Rate 18 Setting Ventilator Respiratory Rate 18 Setting Ventilator Respiratory Rate 18 Setting Ventilator Respiratory Rate 18 Setting Ventilator Respiratory Rate 18 Setting Ventilator Respiratory Rate 18 Setting Ventilator Respiratory Rate 18 Setting Actual Respiratory Rate 20 Actual Respiratory Rate 18 Actual Respiratory Rate 18 Actual Respiratory Rate 18 Positive End Expiratory 5 Pressure Positive End Expiratory 5 Pressure Positive End Expiratory 5 Pressure Positive End Expiratory 5 Pressure Positive End Expiratory 5 Pressure Positive End Expiratory 5 Pressure Positive End Expiratory 5 Pressure Positive End Expiratory 5 Pressure Positive End Expiratory 5 Pressure Peak Inspiratory Airway 26 Pressure Peak Inspiratory Airway 26 Pressure Peak Inspiratory Airway 31 Pressure Peak Inspiratory Airway 25 Pressure Results - Laboratory Findings CBC and BMP: 03/03/19 04:00 03/03/19 04:00 ABG ABG pH 7.46 pH Units (7.32-7.45) H 03/03/19 05:23 ABG pCO2 39 mmHg (35-45) 03/03/19 05:23 ABG pO2 71 mmHg (85-104) L 03/03/19 05:23 ABG O2 Saturation 95 % (95-98) 03/03/19 05:23 PT/INR, D-dimer PT 13.5 Seconds (9.4-12.1) H 02/24/19 12:55 Abnormal lab findings: Abnormal lab results WBC 16.1 K/mcL (4.3-11.1) H 03/03/19 04:00 RBC 2.90 M/mcL (4.19-5.50) L 03/03/19 04:00 Hgb 8.0 g/dL (12.9-16.9) L 03/03/19 04:00 Hct 24.8 % (37.5-50.1) L 03/03/19 04:00 MCH 27.6 pg (28.0-33.3) L 03/03/19 04:00 MCHC 31.1 g/dL (31.6-35.5) L 02/26/19 06:06 RDW 18.1 % (11.5-14.5) H 03/03/19 04:00 MPV 12.5 fL (9.4-12.4) H 03/03/19 04:00 Neutrophils # 12.8 K/mcL (1.6-8.9) H 03/03/19 04:00 Lymphocytes # 0.5 K/mcL (0.6-4.6) L 03/02/19 04:53 Monocytes # 1.5 K/mcL (0.0-1.3) H 02/25/19 02:22 Eosinophils # 0.9 K/mcL (0.0-0.6) H 03/03/19 04:00 Nucleated RBCs/100 WBC 0.2 /100 WBC (0) H 03/02/19 04:53 Hypochromasia Present (Not Present) A 03/01/19 04:04 Anisocytosis 1+ (Not Present) A 03/01/19 04:04 Microcytosis Present (Not Present) A 03/01/19 04:04 PT 13.5 Seconds (9.4-12.1) H 02/24/19 12:55 ABG pH 7.46 pH Units (7.32-7.45) H 03/03/19 05:23 ABG pCO2 48 mmHg (35-45) H 02/26/19 15:31 ABG pO2 71 mmHg (85-104) L 03/03/19 05:23 ABG HCO3 20 mEq/L (21-27) L 02/27/19 05:02 ABG Total CO2 29 mEq/L (20-26) H 03/03/19 05:23 ABG O2 Saturation 99 % (95-98) H 02/28/19 04:44 ABG Base Excess -4 mEq/L (-2 to 3) L 03/01/19 04:36 VBG pCO2 28 mmHg (41-51) L 02/23/19 09:26 VBG pO2 131 mmHg (25-50) H 02/23/19 09:26 VBG HCO3 18 mEq/L (21-27) L 02/23/19 09:26 Sodium 132 mEq/L (136-145) L 02/28/19 03:52 Potassium 3.2 mEq/L (3.5-5.1) L 03/02/19 04:53 Chloride 96 mEq/L (98-107) L 02/27/19 06:38 Carbon Dioxide 20 mEq/L (23-29) L 03/01/19 04:04 BUN 85 mg/dL (8-23) H 03/03/19 04:00 Creatinine 2.15 mg/dL (0.70-1.30) H 03/03/19 04:00 Est GFR ( Amer) 37 (> 60) L 03/03/19 04:00 Est GFR (Non-Af Amer) 31 (> 60) L 03/03/19 04:00 BUN/Creatinine Ratio 40 (6-26) H 03/03/19 04:00 Glucose 124 mg/dL (70-105) H 03/03/19 04:00 POC Glucose 115 mg/dL (70-99) H 03/03/19 04:04 Serum Osmolality 275 mOsm/kg (280-300) L 02/23/19 11:07 Calculated Osmolality 327 (280-300) H 03/03/19 04:00 Calcium 8.2 mg/dL (8.6-10.3) L 03/03/19 04:00 Magnesium 2.7 mg/dL (1.6-2.6) H 02/28/19 16:06 B-Natriuretic Peptide 633 pg/mL (Less than 100) H 02/22/19 10:13 Procalcitonin 1.33 ng/mL (0.00-0.15) H 02/26/19 14:10 Urine Clarity Cloudy (Clear) A 02/26/19 16:00 Urine Protein 30 mg/dL (Neg-Trace) H 02/26/19 16:00 Urine Blood Moderate (Negative) H 02/26/19 16:00 Ur Leukocyte Esterase Large (Negative) H 02/26/19 16:00 Urine Microscopic RBC 30-50 per hpf (0-3) H 02/26/19 16:00 Urine Microscopic WBC TNTC per hpf (0-3) H 02/26/19 16:00 Ur Squamous Epith Cells Moderate per lpf (None-Few) H 02/26/19 16:00 Ur Culture Indicated? YES (NO) A 02/26/19 16:00 Urine Osmolality 189 mOsm/kg (300-1090) L 02/23/19 12:42 Nasal Screen MRSA (PCR) DETECTED (Not Detect) A 02/23/19 12:26 Vancomycin Trough 21 mcg/mL (5-10) H 02/24/19 09:38 Hep Bs Antibody < 3.10 mIU/mL (10.00-) L 03/02/19 12:52 - Clinical Findings Intake & Output: Intake & Output 08/02/19 08/02/19 08/03/19 15:59 23:59 07:59 Intake Total 839 / 2833 1618 / 2833 415 / 415 Output Total 800 / 4550 2275 / 4550 950 / 950 Balance 39 / -1717 -657 / -1717 -535 / -535 Consult Discharge Plan - Plan Referrals: Myron Henderson [Primary Care Provider] -
[2019-03-03] MEDS: Pantoprazole 40 MG VIAL IVP SCH (07:57)
[2019-03-03] MEDS: Chlorhexidine Rinse 15 ML MOUTHWASH MM SCH ×2 (07:57→21:10)
[2019-03-03] MEDS: Loratadine 10 MG TABLET PO SCH (07:58)
[2019-03-03] MEDS: amLODIPine 5 MG TABLET PO SCH (07:58)
[2019-03-03] MEDS: FLUoxetine 20 MG CAPSULE PO SCH (07:58)
[2019-03-03] MEDS: Insulin DETEMIR 100 UNIT/ML X5UNITS SQ SCH (07:59)
[2019-03-03] MEDS: Magnesium Oxide 400 MG TABLET PO SCH (07:59)
[2019-03-03] MEDS: Multivit/Ca/Min/Fe/FA 1 TAB TABLET PO SCH (07:59)
[2019-03-03] MEDS: Folic Acid 1 MG TABLET PO SCH (07:59)
[2019-03-03] MEDS: Docusate Oral Soln 100 MG/10 ML UDC PO SCH ×2 (08:01→21:10)
[2019-03-03] MEDS: Aspirin Enteric Coated 81 MG Tablet PO SCH (08:01)
[2019-03-03] MEDS: Budesonide/Formoterol 160/4.5 1 PUFF INH IH SCH ×2 (08:08→19:58)
--- NOTE | 2019-03-03 11:00 | Nephrology Progress Note ---
Date of Encounter: 03/03/19 Time of Encounter: 10:58 - Assessment and Plan (1) ERICK (acute kidney injury) Current Visit: No Status: Acute Patient with multifactorial acute kidney injury superimposed on chronic kidney disease. His creatinine continues to rise along with his BUN despite improvement in urine output. He appears to be euvolemic and I do not think he needs additional fluid at this time. He underwent dialysis yesterday and his BUN improved significantly. With his significant UOP will hold on dialysis today. Avoid unnecessary nephrotoxic agents. Renal dose medications. (2) Hyponatremia Current Visit: No Status: Resolved Normal after dialysis. (3) Chronic kidney disease, stage IV (severe) Current Visit: No Status: Chronic (4) Acute and chronic respiratory failure Current Visit: No Status: Resolved Qualifiers: Respiratory failure complication: hypoxia Qualified Code(s): J96.21 - Acute and chronic respiratory failure with hypoxia (5) Hospital-acquired pneumonia Current Visit: Yes Status: Suspected Subjective Principal diagnosis: ERICK Interval history: Patient seen and evaluated. He is extubated. He is not answering my questions. His eyes are open. ROS is unobtainable. Objective - Vital Signs Vital signs: Vital Signs Temp Pulse Resp BP Pulse Ox 03/03/19 10:56 16 94 03/03/19 10:24 93 03/03/19 10:18 16 96 03/03/19 10:00 84 18 117/52 97 03/03/19 09:31 16 93 03/03/19 09:00 87 14 132/57 93 03/03/19 08:08 15 94 03/03/19 08:00 80 14 136/58 93 03/03/19 07:52 98.9 F 03/03/19 07:00 88 18 124/56 95 03/03/19 06:00 81 19 141/57 94 03/03/19 05:43 20 127/73 93 03/03/19 05:00 91 18 136/65 91 03/03/19 04:00 98.3 F 94 20 134/59 91 03/03/19 03:34 18 134/52 94 03/03/19 03:00 100 19 134/61 93 03/03/19 02:00 76 20 137/66 93 03/03/19 01:19 18 120/56 93 03/03/19 01:00 85 18 120/56 93 03/03/19 00:00 98.6 F 79 18 128/57 93 03/02/19 23:33 18 117/59 94 03/02/19 23:00 71 19 117/59 94 03/02/19 22:00 76 20 126/53 90 03/02/19 21:27 18 132/53 93 03/02/19 21:00 86 18 130/49 96 03/02/19 20:00 98 F 95 19 125/58 93 03/02/19 19:44 22 135/59 93 03/02/19 19:00 82 23 130/71 92 03/02/19 18:58 97.4 F L 20 141/65 03/02/19 18:15 134/58 03/02/19 18:00 85 24 130/53 92 03/02/19 17:45 129/59 03/02/19 17:30 135/65 03/02/19 17:22 24 132/56 92 03/02/19 17:15 128/55 03/02/19 17:00 81 20 133/59 93 03/02/19 16:45 131/62 03/02/19 16:30 98.1 F 22 140/62 03/02/19 16:16 98.1 F 03/02/19 16:00 87 23 110/60 91 03/02/19 15:46 23 124/57 90 03/02/19 15:00 84 19 127/62 93 03/02/19 14:00 75 20 115/65 95 03/02/19 13:00 97.6 F 77 18 116/52 96 03/02/19 12:00 79 19 116/55 95 03/02/19 11:48 19 119/64 94 03/02/19 11:00 75 23 119/64 94 Intake and Output 03/02/19 03/03/19 03/03/19 23:59 07:59 15:59 Intake Total 1618 / 2833 415 / 499 84 / 499 Output Total 2275 / 4550 1850 / 1850 Balance -657 / -1717 -1435 / -1351 84 / -1351 Intake: IV Fluids 260 / 900 124 / 208 84 / 208 Precedex Premix 400 mcg In 100 200 / 400 100 / 152 52 / 152 ml @ 0.1 MCG/KG/HR 3.108 mls/hr IVC .Q24H [facility] Rx#:[id number] FentaNYL (PF) 1,000 MCG In 0.9 60 / 100 24 / 56 32 / 56 % Sodium Chloride 80 ML @ 50 MCG/HR 5 mls/hr IVC CONT [facility] Rx #:[id number] Oral 0 / 0 Tube Feeding 698 / 1113 291 / 291 Free Water 60 / 60 Intake, Rinseback and Flushes 600 / 600 Output: Urine 0 / 0 Total Dialysis (HD) Output 600 / 600 Catheter 1675 / 3950 1850 / 1850 Gastric Drainage 0 / 0 0 / 0 Other: Blood Glucose* 119 89 Hemodialysis Net Fluid Removed 0 (mL) - General Appearance General appearance: Present: well-developed, well-nourished, obese EENT: Present: ATNC Neck: Present: supple Respiratory: Present: course breath sounds Cardiology: Present: regular rate Gastrointestinal: Present: obese Integumentary: Present: warm and dry Musculoskeletal: Present: no cyanosis - Lab 03/03/19 04:00 03/03/19 04:00 Most recent lab results 03/03/19 03/03/19 03/03/19 04:00 04:00 05:23 ABG pH 7.46 H ABG pCO2 39 ABG pO2 71 L ABG HCO3 27 ABG O2 Saturation 95 Calcium 8.2 L Magnesium 2.2 Consult Discharge Plan - Plan Referrals: Myron Henderson [Primary Care Provider] -
[2019-03-03] MEDS: *HR* Dextrose 50 % in Water (Syg) 50 ML SYRINGE IVP PRN ×2 (12:33→17:49)
[2019-03-03] MEDS: D5% in Water 1,000 ML IVC PRN (18:02)
[2019-03-03] MEDS ORDERED: *HR* Metoprolol 5 MG/5 ML VIAL IVP ONE (20:54)
[2019-03-04] MEDS: Artificial Tears SOLN 15 ML BOTTLE BOTH EYES SCH ×5 (00:15→13:28)
[2019-03-04] MEDS: Insulin LISPRO 300 UNITS/3 ML VIAL SQ SCH ×6 (00:15→23:06)
[2019-03-04] MEDS: Ipratropium/Albuterol Neb 3 ML IH SCH ×7 (00:17→23:32)
[2019-03-04] MEDS: *HR* Dextrose 50 % in Water (Syg) 50 ML SYRINGE IVP PRN (00:21)
[2019-03-04] MEDS: D5% in Water 1,000 ML IVC PRN (03:56)
[2019-03-04 04:09] LABS: Hematocrit 26.4 % (37.5-50.1); Hemoglobin 8.5 g/dL (12.9-16.9); Immature Platelets 6.5 % (1.1-6.1); Mean Corpuscular HGB Conc 32.2 g/dL (31.6-35.5); Mean Corpuscular Hemoglobin 27.4 pg (28.0-33.3); Mean Corpuscular Volume 85.2 fL (83.0-100.0); Mean Platelet Volume 11.9 fL (9.4-12.4); Red Blood Count 3.1 M/mcL (4.19-5.50); Red Cell Distribution Width 18.6 % (11.5-14.5); White Blood Count 18.1 K/mcL (4.3-11.1)
[2019-03-04 04:32] LABS: Calcium 8.7 mg/dL (8.6-10.3); Potassium 3.4 mEq/L (3.5-5.1)
[2019-03-04] MEDS: *HR* Heparin 5,000 UNIT/ML VIAL SQ SCH ×3 (06:14→21:50)
--- NOTE | 2019-03-04 06:59 | Pulmonology Progress Note ---
Date of Encounter: 03/04/19 Time of Encounter: 06:59 Assessment and Plan (1) Acute and chronic respiratory failure Current Visit: No Status: Acute This is improving continue BiPAP when sleeping IS/OOBTC as tolerated Qualifiers: Respiratory failure complication: hypoxia Qualified Code(s): J96.21 - Acute and chronic respiratory failure with hypoxia (2) Acute on chronic diastolic (congestive) heart failure Current Visit: No Status: Suspected Appears euvolemic on exam holding diuresis now we will continue to trend blood pressure (3) COPD (chronic obstructive pulmonary disease) Current Visit: Yes Status: Acute Continue combination inhaler Qualifiers: COPD type: unspecified COPD Qualified Code(s): J44.9 - Chronic obstructive pulmonary disease, unspecified (4) Hospital-acquired pneumonia Current Visit: Yes Status: Suspected His finished a course of antibiotics for this (5) Acute kidney injury superimposed on CKD Current Visit: Yes Status: Acute nephrology following no indication for dialysis today continue to follow urine output which is been excellent trend electrolytes (6) Encephalopathy Current Visit: Yes Status: Suspected This is resolving this combination of metabolic derangements and sepsis (7) Goals of care, counseling/discussion Current Visit: Yes Status: Acute Palliative care following overall prognosis guarded Patient is stable for transfer to stepdown unit for ongoing care report called byron Lamb on the Hospitalist service who accepted the patient in transfer. Subjective Principal diagnosis: ERICK Interval history: PET is much more awake and able to follow commands today he is doing well from a respiratory status standpoint. Objective PUL Vital signs: Last Vital Signs Temp 98.6 F 03/04/19 04:00 Pulse 103 03/04/19 06:00 Resp 14 03/04/19 06:00 BP 155/62 03/04/19 06:00 Pulse Ox 95 03/04/19 06:00 General appearance: no acute distress Eyes: nonicteric ENT: oropharynx moist Neck: supple, JVD Auscultation: bilateral: rales Cardiovascular: regular rate and rhythm Gastrointestinal: normoactive bowel sounds, soft Extremities: no cyanosis, edema (General he appears improved) Musculoskeletal: other (Status post BKA) normal mental status, non-focal exam mood appropriate Results - Laboratory Findings CBC and BMP: 03/04/19 04:00 03/04/19 04:00 ABG ABG pH 7.46 pH Units (7.32-7.45) H 03/03/19 05:23 ABG pCO2 39 mmHg (35-45) 03/03/19 05:23 ABG pO2 71 mmHg (85-104) L 03/03/19 05:23 ABG O2 Saturation 95 % (95-98) 03/03/19 05:23 PT/INR, D-dimer PT 13.5 Seconds (9.4-12.1) H 02/24/19 12:55 Abnormal lab findings: Abnormal lab results WBC 18.1 K/mcL (4.3-11.1) H 03/04/19 04:00 RBC 3.10 M/mcL (4.19-5.50) L 03/04/19 04:00 Hgb 8.5 g/dL (12.9-16.9) L 03/04/19 04:00 Hct 26.4 % (37.5-50.1) L 03/04/19 04:00 MCH 27.4 pg (28.0-33.3) L 03/04/19 04:00 MCHC 31.1 g/dL (31.6-35.5) L 02/26/19 06:06 RDW 18.6 % (11.5-14.5) H 03/04/19 04:00 MPV 12.5 fL (9.4-12.4) H 03/03/19 04:00 Neutrophils # 12.8 K/mcL (1.6-8.9) H 03/03/19 04:00 Lymphocytes # 0.5 K/mcL (0.6-4.6) L 03/02/19 04:53 Monocytes # 1.5 K/mcL (0.0-1.3) H 02/25/19 02:22 Eosinophils # 0.9 K/mcL (0.0-0.6) H 03/03/19 04:00 Nucleated RBCs/100 WBC 0.2 /100 WBC (0) H 03/02/19 04:53 Immature Plt Fraction 6.5 % (1.1-6.1) H 03/04/19 04:00 Hypochromasia Present (Not Present) A 03/01/19 04:04 Anisocytosis 1+ (Not Present) A 03/01/19 04:04 Microcytosis Present (Not Present) A 03/01/19 04:04 PT 13.5 Seconds (9.4-12.1) H 02/24/19 12:55 ABG pH 7.46 pH Units (7.32-7.45) H 03/03/19 05:23 ABG pCO2 48 mmHg (35-45) H 02/26/19 15:31 ABG pO2 71 mmHg (85-104) L 03/03/19 05:23 ABG HCO3 20 mEq/L (21-27) L 02/27/19 05:02 ABG Total CO2 29 mEq/L (20-26) H 03/03/19 05:23 ABG O2 Saturation 99 % (95-98) H 02/28/19 04:44 ABG Base Excess -4 mEq/L (-2 to 3) L 03/01/19 04:36 VBG pCO2 28 mmHg (41-51) L 02/23/19 09:26 VBG pO2 131 mmHg (25-50) H 02/23/19 09:26 VBG HCO3 18 mEq/L (21-27) L 02/23/19 09:26 Sodium 148 mEq/L (136-145) H 03/04/19 04:00 Potassium 3.4 mEq/L (3.5-5.1) L 03/04/19 04:00 Chloride 108 mEq/L (98-107) H 03/04/19 04:00 Carbon Dioxide 20 mEq/L (23-29) L 03/01/19 04:04 BUN 77 mg/dL (8-23) H 03/04/19 04:00 Creatinine 1.94 mg/dL (0.70-1.30) H 03/04/19 04:00 Est GFR ( Amer) 42 (> 60) L 03/04/19 04:00 Est GFR (Non-Af Amer) 35 (> 60) L 03/04/19 04:00 BUN/Creatinine Ratio 40 (6-26) H 03/04/19 04:00 Glucose 124 mg/dL (70-105) H 03/03/19 04:00 POC Glucose 56 mg/dL (70-99) L 03/04/19 00:03 Serum Osmolality 275 mOsm/kg (280-300) L 02/23/19 11:07 Calculated Osmolality 328 (280-300) H 03/04/19 04:00 Calcium 8.2 mg/dL (8.6-10.3) L 03/03/19 04:00 Magnesium 2.7 mg/dL (1.6-2.6) H 02/28/19 16:06 B-Natriuretic Peptide 633 pg/mL (Less than 100) H 02/22/19 10:13 Procalcitonin 1.33 ng/mL (0.00-0.15) H 02/26/19 14:10 Urine Clarity Cloudy (Clear) A 02/26/19 16:00 Urine Protein 30 mg/dL (Neg-Trace) H 02/26/19 16:00 Urine Blood Moderate (Negative) H 02/26/19 16:00 Ur Leukocyte Esterase Large (Negative) H 02/26/19 16:00 Urine Microscopic RBC 30-50 per hpf (0-3) H 02/26/19 16:00 Urine Microscopic WBC TNTC per hpf (0-3) H 02/26/19 16:00 Ur Squamous Epith Cells Moderate per lpf (None-Few) H 02/26/19 16:00 Ur Culture Indicated? YES (NO) A 02/26/19 16:00 Urine Osmolality 189 mOsm/kg (300-1090) L 02/23/19 12:42 Nasal Screen MRSA (PCR) DETECTED (Not Detect) A 02/23/19 12:26 Vancomycin Trough 21 mcg/mL (5-10) H 02/24/19 09:38 Hep Bs Antibody < 3.10 mIU/mL (10.00-) L 03/02/19 12:52 - Clinical Findings Intake & Output: Intake & Output 03/03/19 03/03/19 03/04/19 15:59 23:59 07:59 Intake Total 84 / 499 1000 / 1000 Output Total 1050 / 4600 1700 / 4600 2500 / 2500 Balance -966 / -4101 -1700 / -4101 -1500 / -1500 Weight 110.5 kg Consult Discharge Plan - Plan Referrals: Myron Henderson [Primary Care Provider] -
[2019-03-04] MEDS: Loratadine 10 MG TABLET PO SCH (08:05)
[2019-03-04] MEDS: Folic Acid 1 MG TABLET PO SCH (08:05)
[2019-03-04] MEDS: Magnesium Oxide 400 MG TABLET PO SCH (08:05)
[2019-03-04] MEDS: Aspirin Enteric Coated 81 MG Tablet PO SCH (08:05)
[2019-03-04] MEDS: Pantoprazole 40 MG VIAL IVP SCH ×2 (08:05→10:03)
[2019-03-04] MEDS: amLODIPine 5 MG TABLET PO SCH ×2 (08:05→10:03)
[2019-03-04] MEDS: Docusate Oral Soln 100 MG/10 ML UDC PO SCH (08:05)
[2019-03-04] MEDS: Multivit/Ca/Min/Fe/FA 1 TAB TABLET PO SCH (08:06)
[2019-03-04] MEDS: FLUoxetine 20 MG CAPSULE PO SCH (08:06)
[2019-03-04] MEDS: Chlorhexidine Rinse 15 ML MOUTHWASH MM SCH (08:38)
[2019-03-04] MEDS: *HR* OxyCODONE/APAP 10/325 TABLET PO PRN (09:57)
--- NOTE | 2019-03-04 10:16 | Nephrology Progress Note ---
Date of Encounter: 03/04/19 Time of Encounter: 10:16 - Assessment and Plan (1) ERICK (acute kidney injury) Current Visit: No Status: Acute Patient with multifactorial acute kidney injury superimposed on chronic kidney disease. His creatinine is trending down. He appears to be euvolemic and I do not think he needs additional fluid at this time. With his significant UOP and decreasing creatinine will hold on dialysis today. Avoid unnecessary nephrotoxic agents. Renal dose medications. (2) Chronic kidney disease, stage IV (severe) Current Visit: No Status: Chronic Baseline GFR at 20s up to 30s on occasion (3) Hospital-acquired pneumonia Current Visit: Yes Status: Suspected Continue abx per primary but must dose vanco renally and monitor levels daily Subjective Principal diagnosis: ERICK Interval history: Patient seen and evaluated. He is extubated. He is more alert today than yesterday. He does not verbalize and seems slightly confused. Complete ROS is unobtainable. Objective - Vital Signs Vital signs: Vital Signs Temp Pulse Resp BP Pulse Ox 03/04/19 10:00 94 20 146/67 97 03/04/19 09:00 95 20 142/66 97 03/04/19 08:00 100 20 141/77 94 03/04/19 07:54 100 03/04/19 07:35 14 120/67 98 03/04/19 07:00 98 15 120/67 97 03/04/19 06:00 103 14 155/62 95 03/04/19 05:00 90 11 93 03/04/19 04:00 98.6 F 96 12 144/57 90 03/04/19 03:20 15 144/66 95 03/04/19 03:00 91 12 144/66 96 03/04/19 02:00 90 14 144/65 96 03/04/19 01:00 98 13 131/68 92 03/04/19 00:17 11 144/60 97 03/04/19 00:00 97.7 F 80 13 144/60 95 03/03/19 23:00 88 12 127/85 95 03/03/19 22:00 86 16 133/62 96 03/03/19 21:00 98.6 F 90 11 134/63 96 03/03/19 20:00 92 12 141/66 94 03/03/19 19:58 13 138/75 95 03/03/19 18:00 81 22 121/53 97 03/03/19 17:00 97.6 F 92 19 142/59 97 03/03/19 16:00 94 20 133/51 95 03/03/19 15:52 18 96 03/03/19 15:00 87 18 130/50 96 03/03/19 14:00 90 18 144/56 95 03/03/19 13:00 91 13 126/60 92 03/03/19 12:26 99.1 F 03/03/19 12:00 86 18 132/53 91 03/03/19 11:00 89 22 130/57 93 03/03/19 10:56 16 94 03/03/19 10:24 93 03/03/19 10:18 16 96 Intake and Output 03/03/19 03/04/19 03/04/19 23:59 07:59 15:59 Intake Total 1000 / 1000 Output Total 1700 / 4600 3500 / 3500 Balance -1700 / -4101 -2500 / -2500 Intake: IV Fluids 1000 / 1000 Dextrose 5% 1,000 ML @ 100 mls/ 1000 / 1000 hr IVC .Q10H PRN Rx#:[id number] Output: Catheter 1700 / 4600 3500 / 3500 Other: Weight 110.5 kg Blood Glucose* 81 77 Patient Weight 03/04/19 23:59 Weight 110.5 kg - General Appearance General appearance: Present: well-developed, well-nourished EENT: Present: ATNC Neck: Present: supple Cardiology: Present: regular rate Dialysis Vascular Access: Venous Catheter Gastrointestinal: Present: obese Integumentary: Present: warm and dry Neurologic: Present: confused Musculoskeletal: Present: no cyanosis - Lab 03/04/19 04:00 03/04/19 04:00 Most recent lab results 03/04/19 04:00 Calcium 8.7 Consult Discharge Plan - Plan Referrals: Myron Henderson [Primary Care Provider] -
[2019-03-04] MEDS: Budesonide/Formoterol 160/4.5 1 PUFF INH IH SCH ×2 (11:31→20:15)
[2019-03-04] MEDS ORDERED: Nitroglycerin 0.4 MG TAB.SUBL SL PRN (14:48)
[2019-03-04] MEDS ORDERED: Dextrose Gel 15 GM/37.5 ML TUBE PO PRN ×2 (14:48)
[2019-03-04] MEDS ORDERED: *HR* Heparin 10,000 UNIT/10 ML VIAL IV PRN (14:48)
[2019-03-04] MEDS ORDERED: Ipratropium Neb 0.5 MG NEBULIZER IH PRN (14:48)
[2019-03-04] MEDS ORDERED: D5% in Water 1,000 ML IVC PRN (14:48)
[2019-03-04] MEDS ORDERED: *HR* Dextrose 50 % in Water (Syg) 50 ML SYRINGE IVP PRN (14:48)
[2019-03-05] MEDS: Insulin LISPRO 300 UNITS/3 ML VIAL SQ SCH ×6 (01:23→20:27)
[2019-03-05] MEDS: Ipratropium/Albuterol Neb 3 ML IH SCH ×6 (04:03→23:42)
[2019-03-05] MEDS: *HR* Heparin 5,000 UNIT/ML VIAL SQ SCH ×3 (06:17→19:57)
[2019-03-05] MEDS: FLUoxetine 20 MG CAPSULE PO SCH (08:34)
[2019-03-05] MEDS: Multivit/Ca/Min/Fe/FA 1 TAB TABLET PO SCH (08:34)
[2019-03-05] MEDS: Aspirin Enteric Coated 81 MG Tablet PO SCH (08:35)
[2019-03-05] MEDS: amLODIPine 5 MG TABLET PO SCH (08:35)
[2019-03-05] MEDS: Loratadine 10 MG TABLET PO SCH (08:35)
[2019-03-05] MEDS: Folic Acid 1 MG TABLET PO SCH (08:35)
[2019-03-05 08:58] LABS: Calcium 8.6 mg/dL (8.6-10.3); Potassium 3.2 mEq/L (3.5-5.1)
--- NOTE | 2019-03-05 09:07 | Nephrology Progress Note ---
Date of Encounter: 03/05/19 Time of Encounter: 10:00 - Assessment and Plan (1) ERICK (acute kidney injury) Current Visit: No Status: Acute Patient developed ERICK, BUN/Cr peaked at 127/3.51 on 03/01/19 Underwent [employer] with net fluid removal 600mL on 03/02/19 Patient has Renal Recovery: -Urine Output 2.9L today, 5.5L yesterday, 4.6L tuesday -Serum Creatinine continues to trend down, 1.94-->1.45 today -Baseline GFR 20's and 30's, today 49 Plan: -Will Sign off at this time, please reconsult PRN -Continue to Avoid Nephrotoxins -Renally Dose Meds (2) Chronic kidney disease, stage IV (severe) Current Visit: No Status: Chronic Baseline GFR 20's-30's Did develop superimposed ERICK during admission GFR 49 today (3) Hospital-acquired pneumonia Current Visit: Yes Status: Suspected Continue ABX per primary team Please Renal dose medications and avoid nephrotoxins if possible Subjective Principal diagnosis: ERICK Interval history: Patient seen and examined at bedside. Still on BiPap at time of encounter. Alert and oriented today, significantly improved from yesterday. Patient admits to persistent headache. Denies any other complaints. Urine output remains very good. Peripheral edema is significantly decreased. Objective - Vital Signs Vital signs: Vital Signs Temp Pulse Resp BP Pulse Ox 03/05/19 07:56 97.6 F 84 15 151/69 98 03/05/19 07:50 18 96 03/05/19 05:23 79 03/05/19 04:41 88 18 137/86 96 03/05/19 04:03 16 98 03/04/19 23:47 98.1 F 72 17 141/74 98 03/04/19 23:32 11 99 03/04/19 21:10 93 03/04/19 20:30 97.7 F 98 16 124/79 95 03/04/19 20:15 16 95 03/04/19 16:00 97.7 F 87 18 139/85 98 03/04/19 15:59 18 96 03/04/19 15:00 84 18 132/74 96 03/04/19 14:00 87 18 134/63 97 03/04/19 13:00 82 20 113/47 95 08/04/19 12:00 83 20 121/62 96 03/04/19 11:32 22 94 03/04/19 11:00 100 22 133/62 94 03/04/19 10:00 94 20 146/67 97 Intake and Output 03/04/19 03/05/19 03/05/19 23:59 07:59 15:59 Intake Total 600 / 600 Output Total 400 / 5900 2900 / 2900 Balance -400 / -2900 -2300 / -2300 Intake: Oral 600 / 600 Output: Urine 400 / 400 Catheter 2900 / 2900 Other: Blood Glucose* 150 129 - General Appearance Exam: Gen: A&Ox3, NAD, on BiPaP HEENT: ATNC, EOMI, anicteric sclera, Mucous Membranes dry Neck: soft, supple, trachea midline CV: Regular Rate and Rythym Lungs: Course breath sounds bilaterally, no crackles ABD: obese, soft, nontender Ext: Edema much improved, no rashes, Venous Catheter in place - Lab 03/04/19 04:00 03/05/19 08:20 Most recent lab results 03/05/19 08:20 Calcium 8.6 Consult Discharge Plan - Plan Referrals: Myron Henderson [Primary Care Provider] -
[2019-03-05] MEDS: Budesonide/Formoterol 160/4.5 1 PUFF INH IH SCH ×2 (10:54→19:45)
[2019-03-05] MEDS ORDERED: *HR* HYDROcodone/Acet 5/325 mg TABLET PO PRN (13:40)
[2019-03-05] MEDS: *HR* HYDROcodone/Acet 5/325 mg TABLET PO PRN (13:56)
--- NOTE | 2019-03-05 14:01 | Palliative Progress Note ---
Date of Encounter: 03/05/19 Time of Encounter: 14:00 - Assessment and plan (1) Generalized pain Current Visit: Yes Status: Acute Assessment and plan: Has [place] available for PRN use. Utilize prior to my visit. Appears comfortab le. MOnitor. (2) Goals of care, counseling/discussion Current Visit: Yes Status: Acute Assessment and plan: No family in room, patient is unsure their schedule or when they are coming. I could not reach by phone,, but was able to reach daughter Elisa. She is unable to come tomorrow for meeting, however, She would like to schedule goals of care/adv care planning meeting on Tuesday at [id number]. Will plan on completing adv directives at that time, as well as code status discussion. I sp leonard with Lisa from nutrition services, as family desires education on his diet/fluid restriction,, and hopefully they will be able to attend as well on Tuesday. (3) Charcot's joint, right ankle and foot Current Visit: No Status: Acute (4) Palliative care encounter Current Visit: Yes Status: Acute (5) COPD (chronic obstructive pulmonary disease) Current Visit: Yes Status: Acute Qualifiers: COPD type: unspecified COPD Qualified Code(s): J44.9 - Chronic obstructive pulmonary disease, unspecified (6) Acute and chronic respiratory failure with hypoxia Current Visit: Yes Status: Acute Assessment and plan: Was successfully extubated this weekend - currently on bipap. (7) Acute kidney injury superimposed on CKD Current Visit: Yes Status: Acute - Time Spent With Patient Total time spent is greater than 50% in coordination of care (as documented) at patient's floor/unit and/or counseling patient: - Subjective Interval history: Patient was successfully extubated this weekend. He is asleep on my visit - awakens easily. C/o bilateral foot pain. On Bipap at present, however, nurse states he was off for lunch. Taking po fairly well. NO family at bedside. Vitals stable. - Constitutional Vitals: Abnormal lab results WBC 18.1 K/mcL (4.3-11.1) H 03/04/19 04:00 RBC 3.10 M/mcL (4.19-5.50) L 03/04/19 04:00 Hgb 8.5 g/dL (12.9-16.9) L 03/04/19 04:00 Hct 26.4 % (37.5-50.1) L 03/04/19 04:00 MCH 27.4 pg (28.0-33.3) L 03/04/19 04:00 MCHC 31.1 g/dL (31.6-35.5) L 02/26/19 06:06 RDW 18.6 % (11.5-14.5) H 03/04/19 04:00 MPV 12.5 fL (9.4-12.4) H 03/03/19 04:00 Neutrophils # 12.8 K/mcL (1.6-8.9) H 03/03/19 04:00 Lymphocytes # 0.5 K/mcL (0.6-4.6) L 03/02/19 04:53 Monocytes # 1.5 K/mcL (0.0-1.3) H 02/25/19 02:22 Eosinophils # 0.9 K/mcL (0.0-0.6) H 03/03/19 04:00 Nucleated RBCs/100 WBC 0.2 /100 WBC (0) H 03/02/19 04:53 Immature Plt Fraction 6.5 % (1.1-6.1) H 03/04/19 04:00 Hypochromasia Present (Not Present) A 03/01/19 04:04 Anisocytosis 1+ (Not Present) A 03/01/19 04:04 Microcytosis Present (Not Present) A 03/01/19 04:04 PT 13.5 Seconds (9.4-12.1) H 02/24/19 12:55 ABG pH 7.46 pH Units (7.32-7.45) H 03/03/19 05:23 ABG pCO2 48 mmHg (35-45) H 02/26/19 15:31 ABG pO2 71 mmHg (85-104) L 03/03/19 05:23 ABG HCO3 20 mEq/L (21-27) L 02/27/19 05:02 ABG Total CO2 29 mEq/L (20-26) H 03/03/19 05:23 ABG O2 Saturation 99 % (95-98) H 02/28/19 04:44 ABG Base Excess -4 mEq/L (-2 to 3) L 03/01/19 04:36 VBG pCO2 28 mmHg (41-51) L 02/23/19 09:26 VBG pO2 131 mmHg (25-50) H 02/23/19 09:26 VBG HCO3 18 mEq/L (21-27) L 02/23/19 09:26 Sodium 148 mEq/L (136-145) H 03/04/19 04:00 Potassium 3.2 mEq/L (3.5-5.1) L 03/05/19 08:20 Chloride 108 mEq/L (98-107) H 03/04/19 04:00 Carbon Dioxide 30 mEq/L (23-29) H 03/05/19 08:20 BUN 55 mg/dL (8-23) H 03/05/19 08:20 Creatinine 1.45 mg/dL (0.70-1.30) H 03/05/19 08:20 Est GFR ( Amer) 59 (> 60) L 03/05/19 08:20 Est GFR (Non-Af Amer) 49 (> 60) L 03/05/19 08:20 BUN/Creatinine Ratio 38 (6-26) H 03/05/19 08:20 Glucose 136 mg/dL (70-105) H 03/05/19 08:20 POC Glucose 129 mg/dL (70-99) H 03/05/19 07:59 Serum Osmolality 275 mOsm/kg (280-300) L 02/23/19 11:07 Calculated Osmolality 309 (280-300) H 03/05/19 08:20 Calcium 8.2 mg/dL (8.6-10.3) L 03/03/19 04:00 Magnesium 2.7 mg/dL (1.6-2.6) H 02/28/19 16:06 B-Natriuretic Peptide 633 pg/mL (Less than 100) H 02/22/19 10:13 Procalcitonin 1.33 ng/mL (0.00-0.15) H 02/26/19 14:10 Urine Clarity Cloudy (Clear) A 02/26/19 16:00 Urine Protein 30 mg/dL (Neg-Trace) H 02/26/19 16:00 Urine Blood Moderate (Negative) H 02/26/19 16:00 Ur Leukocyte Esterase Large (Negative) H 02/26/19 16:00 Urine Microscopic RBC 30-50 per hpf (0-3) H 02/26/19 16:00 Urine Microscopic WBC TNTC per hpf (0-3) H 02/26/19 16:00 Ur Squamous Epith Cells Moderate per lpf (None-Few) H 02/26/19 16:00 Ur Culture Indicated? YES (NO) A 02/26/19 16:00 Urine Osmolality 189 mOsm/kg (300-1090) L 02/23/19 12:42 Nasal Screen MRSA (PCR) DETECTED (Not Detect) A 02/23/19 12:26 Vancomycin Trough 21 mcg/mL (5-10) H 02/24/19 09:38 Hep Bs Antibody < 3.10 mIU/mL (10.00-) L 03/02/19 12:52 General appearance: Present: no acute distress - ENT ENT exam: Present: normal exam - Respiratory Respiratory exam: Present: decreased breath sounds, CTAB - Cardiovascular Cardiovascular exam: Present: irregular rhythm - GI/Abdominal GI/Abdominal exam: Present: distended, normal bowel sounds, soft - Extremities Exam Additional comments: 2+ bilateral edema - decreased from last week. Dressing to right ankle D/I - Neurological Exam Neurological exam: Present: alert, strengths equal and symetr throughout Additional comments: Oriented to name and place, reoriented to time and situation. - Skin Skin exam: Present: dry, pallor, warm Palliative Quality Palliative Quality: Screen for Code Status: NA (Patient sedated and intubated, no family present), Screen for Goals of Care: NA, Screen for Pain: Yes, If Pain Regimen Started, Initiate Bowel Regimen: NA, Screen for Nausea/Vomitting: NA Code Status: 02/23/19 07:14 CODE [Resuscitation Status: Active] [RES] Routine Comment: Resuscitation Status: Full Code - Labs CBC & Chem 7: 03/04/19 04:00 03/05/19 08:20 Labs: Laboratory Results - last 24 hr 03/04/19 03/04/19 03/05/19 15:55 20:34 01:11 Sodium Potassium Chloride Carbon Dioxide BUN Creatinine Est GFR ( Amer) Est GFR (Non-Af Amer) BUN/Creatinine Ratio Glucose POC Glucose 137 H 150 H 130 H Calculated Osmolality Calcium 03/05/19 03/05/19 03/05/19 04:35 07:59 08:20 Sodium 141 Potassium 3.2 L Chloride 101 Carbon Dioxide 30 H BUN 55 H Creatinine 1.45 H Est GFR ( Amer) 59 L Est GFR (Non-Af Amer) 49 L BUN/Creatinine Ratio 38 H Glucose 136 H POC Glucose 122 H 129 H Calculated Osmolality 309 H Calcium 8.6 - ABG Interpretation ABG results: ABG ABG pH 7.46 pH Units (7.32-7.45) H 03/03/19 05:23 ABG pCO2 39 mmHg (35-45) 03/03/19 05:23 ABG pO2 71 mmHg (85-104) L 03/03/19 05:23 ABG O2 Saturation 95 % (95-98) 03/03/19 05:23 PT/INR, D-dimer PT 13.5 Seconds (9.4-12.1) H 02/24/19 12:55 Consult Discharge Plan - Plan Referrals: Myron Henderson [Primary Care Provider] -
--- NOTE | 2019-03-05 17:22 | Internal Med Progress Note ---
Hospitalist Progress Note - Encounter Date of Encounter: 03/05/19 Time of Encounter: 17:18 - Subjective Interval History: She was seen and examined at bedside. Patient denied any acute issues and concerns. Patient alert and oriented however he continues and legs behind and response to questions. He denies any difficulty in breathing, chest pain, palpi tation and any issues at this time. - Exam Vitals: Temp Pulse Resp BP Pulse Ox 97.5 F L 77 17 122/63 100 03/05/19 16:19 03/05/19 16:19 03/05/19 16:28 03/05/19 16:19 03/05/19 16:28 Exam: General: A & O 3, In no acute distress HENNT: PERRLA. Head atraumatic and makes supple CVS S1 and S2 regular, no murmur RS: Clear to air entry bilaterally, bilateral basal rales. Abdomen: Soft and nontender. Bowel sounds normal 4 Extremities: No cyanosis, clubbing, and edema Neurology: Cranial 2 through 12 normal. Motor strength 5/5 bilaterally. Sensation intact - Assessment and Plan (1) Acute and chronic respiratory failure with hypoxia Current Visit: Yes Status: Acute Assessment and Plan: Patient presented to the emergency department with complaint of difficulty breathing and found to have hypoxia on initial presentation. Patient was found to hospital-acquired pneumonia and then subsequently placed in the ICU and subsequently intubated. Patient recently extubated on March 03. Then patient was transferred to [facility]. Patient has finished his antibiotic course. Patient is not currently on any antibiotic. Patient is saturating about 92% on 5 L oxygen. We will continue to monitor. (2) Hospital-acquired pneumonia Current Visit: Yes Status: Suspected Assessment and Plan: Patient finished antibiotics. Continue to monitor. (3) Chronic kidney disease Current Visit: No Status: Chronic Assessment and Plan: Continue to monitor creatinine and nephrology on consult. Patient developed ERICK during hospital stay and did receive [facility] [employer] [employer]. Current current creatinine is 1.4. We will continue to monitor (4) Acute kidney injury superimposed on CKD Current Visit: Yes Status: Acute Assessment and Plan: The petechiae on security. Percent creatinine went up to 3.12. Patient received [facility] RESEARCH on March 01. Creatine 31.45. A CAT has resolved. We will continue to monitor. (5) CHF exacerbation Current Visit: Yes Status: Acute Assessment and Plan: Patient on initial presentation had a CHF exacerbation. Patient appears euvolemic now. We will hold off on diuretics. We will continue to monitor. We will continue to trend blood pressure. (6) COPD (chronic obstructive pulmonary disease) Current Visit: Yes Status: Acute Assessment and Plan: Continue inhaler and O2 support. (7) Charcot's joint, right ankle and foot Current Visit: No Status: Acute Assessment and Plan: Chronic. (8) Goals of care, counseling/discussion Current Visit: Yes Status: Acute Assessment and Plan: Palliative care Consulted. Patient is currently full code. (9) ERICK (acute kidney injury) Current Visit: No Status: Acute (10) DVT prophylaxis Current Visit: No Status: Acute Assessment and Plan: Heparin SQ - Time Spent with Patient Total time spent is greater than 50% in coordination of care (as documented) at patient's floor/unit and/or counseling patient: 25 - 35 minutes Plan of Care Discussed with: patient Internal Medicine: Result - Labs CBC & Chem 7: 03/04/19 04:00 03/05/19 08:20 Labs: BMP 03/05/19 08:20 Sodium 141 Potassium 3.2 L Chloride 101 Carbon Dioxide 30 H BUN 55 H Creatinine 1.45 H Glucose 136 H Calcium 8.6 - ABG Interpretation ABG results: ABG ABG pH 7.46 pH Units (7.32-7.45) H 03/03/19 05:23 ABG pCO2 39 mmHg (35-45) 03/03/19 05:23 ABG pO2 71 mmHg (85-104) L 03/03/19 05:23 ABG O2 Saturation 95 % (95-98) 03/03/19 05:23 PT/INR, D-dimer PT 13.5 Seconds (9.4-12.1) H 02/24/19 12:55 Consult Discharge Plan - Plan Referrals: Myron Henderson [Primary Care Provider] - (3) Chronic kidney disease Qualifiers: Chronic kidney disease stage: stage 4 (severe) Qualified Code(s): N18.4 - Chronic kidney disease, stage 4 (severe) (5) CHF exacerbation Qualifiers: Heart failure type: diastolic Qualified Code(s): I50.9 - Heart failure, unsp ecified (6) COPD (chronic obstructive pulmonary disease) Qualifiers: COPD type: unspecified COPD Qualified Code(s): J44.9 - Chronic obstructive pulmonary disease, unspecified
[2019-03-06] MEDS: Insulin LISPRO 300 UNITS/3 ML VIAL SQ SCH ×7 (02:20→23:29)
[2019-03-06] MEDS: *HR* HYDROcodone/Acet 5/325 mg TABLET PO PRN ×2 (02:20→10:23)
[2019-03-06] MEDS: Ipratropium/Albuterol Neb 3 ML IH SCH ×5 (03:51→20:57)
[2019-03-06] MEDS: *HR* Heparin 5,000 UNIT/ML VIAL SQ SCH ×3 (06:16→19:58)
[2019-03-06] MEDS: Budesonide/Formoterol 160/4.5 1 PUFF INH IH SCH ×2 (08:02→20:57)
[2019-03-06 08:21] LABS: Hematocrit 28.7 % (37.5-50.1); Hemoglobin 8.9 g/dL (12.9-16.9); Mean Corpuscular Hemoglobin 26.9 pg (28.0-33.3); Mean Corpuscular Volume 86.7 fL (83.0-100.0); Mean Platelet Volume 12.4 fL (9.4-12.4); Platelet Count 249 K/mcL (140-400); Red Blood Count 3.31 M/mcL (4.19-5.50); Red Cell Distribution Width 18.3 % (11.5-14.5); White Blood Count 10.4 K/mcL (4.3-11.1)
[2019-03-06 08:40] LABS: Calcium 8.4 mg/dL (8.6-10.3); Potassium 3.6 mEq/L (3.5-5.1)
[2019-03-06] MEDS: Aspirin Enteric Coated 81 MG Tablet PO SCH (09:39)
[2019-03-06] MEDS: Folic Acid 1 MG TABLET PO SCH (09:39)
[2019-03-06] MEDS: Loratadine 10 MG TABLET PO SCH (09:40)
[2019-03-06] MEDS: Multivit/Ca/Min/Fe/FA 1 TAB TABLET PO SCH (09:40)
[2019-03-06] MEDS: amLODIPine 5 MG TABLET PO SCH (09:40)
[2019-03-06] MEDS: FLUoxetine 20 MG CAPSULE PO SCH (09:41)
--- NOTE | 2019-03-06 10:24 | Palliative Progress Note ---
Date of Encounter: 03/06/19 Time of Encounter: 10:10 - Assessment and plan (1) Generalized pain Current Visit: Yes Status: Acute Assessment and plan: [place] ordered PRN. Has utilized x2 last 24 hours. Monitor (2) Constipation Current Visit: No Status: Acute Assessment and plan: Add Miralax daily, patient states usually works for him at home. MOnitor BM's Qualifiers: Constipation type: slow transit constipation Qualified Code(s): K59.01 - Slow transit constipation (3) Goals of care, counseling/discussion Current Visit: Yes Status: Acute Assessment and plan: Meeting planned tomorrow afternoon with pt//daughters. Also contacted decker operator to provide them some education. (4) Charcot's joint, right ankle and foot Current Visit: No Status: Acute (5) Palliative care encounter Current Visit: Yes Status: Acute (6) COPD (chronic obstructive pulmonary disease) Current Visit: Yes Status: Acute Qualifiers: COPD type: unspecified COPD Qualified Code(s): J44.9 - Chronic obstructive pulmonary disease, unspecified (7) Acute and chronic respiratory failure with hypoxia Current Visit: Yes Status: Acute (8) Acute kidney injury superimposed on CKD Current Visit: Yes Status: Acute - Time Spent With Patient Total time spent is greater than 50% in coordination of care (as documented) at patient's floor/unit and/or counseling patient: - Subjective Interval history: Patient awake and alert, off bipap. Oxygen has been weaned down to 3L. Sats currently 95%. Vitals stable. Renal function continues to improve. C/o some right foot pain and constipation. No family present. - Constitutional Vitals: Abnormal lab results WBC 18.1 K/mcL (4.3-11.1) H 03/04/19 04:00 RBC 3.31 M/mcL (4.19-5.50) L 03/06/19 07:55 Hgb 8.9 g/dL (12.9-16.9) L 03/06/19 07:55 Hct 28.7 % (37.5-50.1) L 03/06/19 07:55 MCH 26.9 pg (28.0-33.3) L 03/06/19 07:55 MCHC 31.0 g/dL (31.6-35.5) L 03/06/19 07:55 RDW 18.3 % (11.5-14.5) H 03/06/19 07:55 MPV 12.5 fL (9.4-12.4) H 03/03/19 04:00 Neutrophils # 12.8 K/mcL (1.6-8.9) H 03/03/19 04:00 Lymphocytes # 0.5 K/mcL (0.6-4.6) L 03/02/19 04:53 Monocytes # 1.5 K/mcL (0.0-1.3) H 02/25/19 02:22 Eosinophils # 0.9 K/mcL (0.0-0.6) H 03/03/19 04:00 Nucleated RBCs/100 WBC 0.2 /100 WBC (0) H 03/02/19 04:53 Immature Plt Fraction 6.5 % (1.1-6.1) H 03/04/19 04:00 Hypochromasia Present (Not Present) A 03/01/19 04:04 Anisocytosis 1+ (Not Present) A 03/01/19 04:04 Microcytosis Present (Not Present) A 03/01/19 04:04 PT 13.5 Seconds (9.4-12.1) H 02/24/19 12:55 ABG pH 7.46 pH Units (7.32-7.45) H 03/03/19 05:23 ABG pCO2 48 mmHg (35-45) H 02/26/19 15:31 ABG pO2 71 mmHg (85-104) L 03/03/19 05:23 ABG HCO3 20 mEq/L (21-27) L 02/27/19 05:02 ABG Total CO2 29 mEq/L (20-26) H 03/03/19 05:23 ABG O2 Saturation 99 % (95-98) H 02/28/19 04:44 ABG Base Excess -4 mEq/L (-2 to 3) L 03/01/19 04:36 VBG pCO2 28 mmHg (41-51) L 02/23/19 09:26 VBG pO2 131 mmHg (25-50) H 02/23/19 09:26 VBG HCO3 18 mEq/L (21-27) L 02/23/19 09:26 Sodium 135 mEq/L (136-145) L 03/06/19 07:55 Potassium 3.2 mEq/L (3.5-5.1) L 03/05/19 08:20 Chloride 108 mEq/L (98-107) H 03/04/19 04:00 Carbon Dioxide 30 mEq/L (23-29) H 03/05/19 08:20 BUN 46 mg/dL (8-23) H 03/06/19 07:55 Creatinine 1.43 mg/dL (0.70-1.30) H 03/06/19 07:55 Est GFR ( Amer) 59 (> 60) L 03/05/19 08:20 Est GFR (Non-Af Amer) 49 (> 60) L 03/06/19 07:55 BUN/Creatinine Ratio 32 (6-26) H 03/06/19 07:55 Glucose 136 mg/dL (70-105) H 03/05/19 08:20 POC Glucose 105 mg/dL (70-99) H 03/06/19 00:11 Serum Osmolality 275 mOsm/kg (280-300) L 02/23/19 11:07 Calculated Osmolality 309 (280-300) H 03/05/19 08:20 Calcium 8.4 mg/dL (8.6-10.3) L 03/06/19 07:55 Magnesium 2.7 mg/dL (1.6-2.6) H 02/28/19 16:06 B-Natriuretic Peptide 633 pg/mL (Less than 100) H 02/22/19 10:13 Procalcitonin 1.33 ng/mL (0.00-0.15) H 02/26/19 14:10 Urine Clarity Cloudy (Clear) A 02/26/19 16:00 Urine Protein 30 mg/dL (Neg-Trace) H 02/26/19 16:00 Urine Blood Moderate (Negative) H 02/26/19 16:00 Ur Leukocyte Esterase Large (Negative) H 02/26/19 16:00 Urine Microscopic RBC 30-50 per hpf (0-3) H 02/26/19 16:00 Urine Microscopic WBC TNTC per hpf (0-3) H 02/26/19 16:00 Ur Squamous Epith Cells Moderate per lpf (None-Few) H 02/26/19 16:00 Ur Culture Indicated? YES (NO) A 02/26/19 16:00 Urine Osmolality 189 mOsm/kg (300-1090) L 02/23/19 12:42 Nasal Screen MRSA (PCR) DETECTED (Not Detect) A 02/23/19 12:26 Vancomycin Trough 21 mcg/mL (5-10) H 02/24/19 09:38 Hep Bs Antibody < 3.10 mIU/mL (10.00-) L 03/02/19 12:52 General appearance: Present: no acute distress - Respiratory Respiratory exam: Present: decreased breath sounds, CTAB - Cardiovascular Cardiovascular exam: Present: +S1, +S2 - GI/Abdominal GI/Abdominal exam: Present: diminished bowel sounds, soft - Extremities Exam Additional comments: 1+ bilateral edema to lower extremities. - Neurological Exam Neurological exam: Present: alert, oriented X3, strengths equal and symetr throughout - Psychiatric Psychiatric exam: Present: normal affect, normal mood - Skin Skin exam: Present: dry, pallor, warm Palliative Quality Palliative Quality: Screen for Code Status: NA (Patient sedated and intubated, no family present), Screen for Goals of Care: NA, Screen for Pain: Yes, If Pain Regimen Started, Initiate Bowel Regimen: NA, Screen for Nausea/Vomitting: NA Code Status: 02/23/19 07:14 CODE [Resuscitation Status: Active] [RES] Routine Comment: Resuscitation Status: Full Code - Labs CBC & Chem 7: 03/06/19 07:55 03/06/19 07:55 Labs: Laboratory Results - last 24 hr 03/05/19 03/05/19 03/05/19 01:11 11:39 16:21 WBC RBC Hgb Hct MCV MCH MCHC RDW Plt Count MPV Sodium Potassium Chloride Carbon Dioxide BUN Creatinine Est GFR ( Amer) Est GFR (Non-Af Amer) BUN/Creatinine Ratio Glucose POC Glucose 130 H 210 H 168 H Calculated Osmolality Calcium 03/05/19 03/06/19 03/06/19 20:26 00:11 03:36 WBC RBC Hgb Hct MCV MCH MCHC RDW Plt Count MPV Sodium Potassium Chloride Carbon Dioxide BUN Creatinine Est GFR ( Amer) Est GFR (Non-Af Amer) BUN/Creatinine Ratio Glucose POC Glucose 143 H 105 H 97 Calculated Osmolality Calcium 03/06/19 03/06/19 07:55 07:55 WBC 10.4 RBC 3.31 L Hgb 8.9 L Hct 28.7 L MCV 86.7 MCH 26.9 L MCHC 31.0 L RDW 18.3 H Plt Count 249 MPV 12.4 Sodium 135 L Potassium 3.6 Chloride 103 Carbon Dioxide 29 BUN 46 H Creatinine 1.43 H Est GFR ( Amer) 60 Est GFR (Non-Af Amer) 49 L BUN/Creatinine Ratio 32 H Glucose 100 POC Glucose Calculated Osmolality 292 Calcium 8.4 L - ABG Interpretation ABG results: ABG ABG pH 7.46 pH Units (7.32-7.45) H 03/03/19 05:23 ABG pCO2 39 mmHg (35-45) 03/03/19 05:23 ABG pO2 71 mmHg (85-104) L 03/03/19 05:23 ABG O2 Saturation 95 % (95-98) 03/03/19 05:23 PT/INR, D-dimer PT 13.5 Seconds (9.4-12.1) H 02/24/19 12:55 Consult Discharge Plan - Plan Referrals: Myron Henderson [Primary Care Provider] -
--- NOTE | 2019-03-06 19:11 | Internal Med Progress Note ---
Hospitalist Progress Note - Encounter Date of Encounter: 03/06/19 Time of Encounter: 19:08 - Subjective Interval History: Patient was seen and examined at bedside. Patient denies any acute issues or concerns at this time. Currently off BiPAP and on nasal cannula. - Exam Vitals: Temp Pulse Resp BP Pulse Ox 99.3 F 82 20 139/70 95 03/06/19 16:15 03/06/19 16:15 03/06/19 16:57 03/06/19 16:15 03/06/19 16:57 Exam: General: A & O 3, In no acute distress HENNT: PERRLA. Head atraumatic and makes supple CVS S1 and S2 regular, no murmur RS: Clear to air entry bilaterally, bilateral basal rales. Abdomen: Soft and nontender. Bowel sounds normal 4 Extremities: No cyanosis, clubbing, and edema Neurology: Cranial 2 through 12 normal. Motor strength 5/5 bilaterally. Sensation intact - Assessment and Plan (1) Acute and chronic respiratory failure with hypoxia Current Visit: Yes Status: Acute Assessment and Plan: Patient presented to the emergency department with complaint of difficulty breathing and found to have hypoxia on initial presentation. Patient was found to hospital-acquired pneumonia and then subsequently placed in the ICU and subsequently intubated. Patient recently extubated on March 03. Then patient was transferred to [facility]. Patient has finished his antibiotic course. Patient is not currently on any antibiotic. Patient is saturating about 92% on 5 L oxygen. We will continue to monitor. Palliative care joe consult. Will continue to monitor and follow palliative recommendation. (2) Hospital-acquired pneumonia Current Visit: Yes Status: Suspected Assessment and Plan: Patient finished antibiotics. Continue to monitor. (3) Chronic kidney disease Current Visit: No Status: Chronic Assessment and Plan: Continue to monitor creatinine and nephrology on consult. Patient developed ERICK during hospital stay and did receive PROPERTY ADJUSTER. Current current creatinine is 1.4. We will continue to monitor (4) CHF exacerbation Current Visit: Yes Status: Acute (5) COPD (chronic obstructive pulmonary disease) Current Visit: Yes Status: Acute Assessment and Plan: Continue inhaler and O2 support. (6) Charcot's joint, right ankle and foot Current Visit: No Status: Acute Assessment and Plan: Chronic. (7) Goals of care, counseling/discussion Current Visit: Yes Status: Acute Assessment and Plan: Palliative care Consulted. Patient is currently full code. (8) DVT prophylaxis Current Visit: No Status: Acute Assessment and Plan: Heparin SQ - Time Spent with Patient Total time spent is greater than 50% in coordination of care (as documented) at patient's floor/unit and/or counseling patient: 25 - 35 minutes Plan of Care Discussed with: patient Internal Medicine: Result - Labs CBC & Chem 7: 03/06/19 07:55 03/06/19 07:55 Labs: Short CBC 03/06/19 Range/Units 07:55 WBC 10.4 (4.3-11.1) K/mcL Hgb 8.9 L (12.9-16.9) g/dL Hct 28.7 L (37.5-50.1) % Plt Count 249 (140-400) K/mcL BMP 03/06/19 07:55 Sodium 135 L Potassium 3.6 Chloride 103 Carbon Dioxide 29 BUN 46 H Creatinine 1.43 H Glucose 100 Calcium 8.4 L - ABG Interpretation ABG results: ABG ABG pH 7.46 pH Units (7.32-7.45) H 03/03/19 05:23 ABG pCO2 39 mmHg (35-45) 03/03/19 05:23 ABG pO2 71 mmHg (85-104) L 03/03/19 05:23 ABG O2 Saturation 95 % (95-98) 03/03/19 05:23 PT/INR, D-dimer PT 13.5 Seconds (9.4-12.1) H 02/24/19 12:55 Consult Discharge Plan - Plan Referrals: Myron Henderson [Primary Care Provider] - (3) Chronic kidney disease Qualifiers: Chronic kidney disease stage: stage 4 (severe) Qualified Code(s): N18.4 - Chronic kidney disease, stage 4 (severe) (4) CHF exacerbation Qualifiers: Heart failure type: diastolic Qualified Code(s): I50.33 - Acute on chronic diastolic (congestive) heart failure (5) COPD (chronic obstructive pulmonary disease) Qualifiers: COPD type: unspecified COPD Qualified Code(s): J44.9 - Chronic obstructive pulmonary disease, unspecified
[2019-03-07] MEDS: Ipratropium/Albuterol Neb 3 ML IH SCH ×6 (00:52→19:56)
[2019-03-07 05:24] LABS: Basophils % 0.1 %; Eosinophils # 0.8 K/mcL (0.0-0.6); Eosinophils % 7.1 %; Hematocrit 26.6 % (37.5-50.1); Hemoglobin 8.3 g/dL (12.9-16.9); Immature Granulocytes % 1.4 % (0-4); Lymphocytes # 1.5 K/mcL (0.6-4.6); Lymphocytes % 13.7 %; Mean Corpuscular HGB Conc 31.2 g/dL (31.6-35.5); Mean Corpuscular Hemoglobin 26.9 pg (28.0-33.3); Mean Corpuscular Volume 86.1 fL (83.0-100.0); Mean Platelet Volume 12.4 fL (9.4-12.4); Monocytes # 0.9 K/mcL (0.0-1.3); Monocytes % 8.3 %; Neutrophils # 7.6 K/mcL (1.6-8.9); Platelet Count 244 K/mcL (140-400); Red Blood Count 3.09 M/mcL (4.19-5.50); Red Cell Distribution Width 18.1 % (11.5-14.5); Segmented Neutrophils % 69.4 %
[2019-03-07 05:34] LABS: BUN/Creatinine Ratio 28 (6-26); Blood Urea Nitrogen 38 mg/dL (8-23); Calcium 8.2 mg/dL (8.6-10.3); Carbon Dioxide 28 mEq/L (23-29); Chloride 103 mEq/L (98-107); Glucose 94 mg/dL (70-105); Osmolality,Calculated 291 (280-300); Sodium 136 mEq/L (136-145); eGFR For African Americans > 60 (> 60); eGFR For Non-African Americans 53 (> 60)
[2019-03-07] MEDS: *HR* Heparin 5,000 UNIT/ML VIAL SQ SCH ×3 (07:08→20:09)
[2019-03-07] MEDS: Insulin LISPRO 300 UNITS/3 ML VIAL SQ SCH ×4 (07:08→18:06)
[2019-03-07] MEDS: Budesonide/Formoterol 160/4.5 1 PUFF INH IH SCH ×2 (07:17→19:56)
[2019-03-07] MEDS: Folic Acid 1 MG TABLET PO SCH (08:55)
[2019-03-07] MEDS: Aspirin Enteric Coated 81 MG Tablet PO SCH (08:55)
[2019-03-07] MEDS: Multivit/Ca/Min/Fe/FA 1 TAB TABLET PO SCH (08:55)
[2019-03-07] MEDS: *HR* HYDROcodone/Acet 5/325 mg TABLET PO PRN ×2 (08:55→20:17)
[2019-03-07] MEDS: amLODIPine 5 MG TABLET PO SCH (08:55)
[2019-03-07] MEDS: FLUoxetine 20 MG CAPSULE PO SCH (08:56)
[2019-03-07] MEDS: Loratadine 10 MG TABLET PO SCH (09:03)
--- NOTE | 2019-03-07 14:44 | Internal Med Progress Note ---
Hospitalist Progress Note - Encounter Date of Encounter: 03/07/19 Time of Encounter: 14:41 - Subjective Interval History: No acute events. Patient has no new complaints. Denies chest pain, SOB, fever and chills. - Exam Vitals: Temp Pulse Resp BP Pulse Ox 37.2 C 87 16 129/60 93 03/07/19 11:44 03/07/19 11:44 03/07/19 11:44 03/07/19 11:44 03/07/19 11:44 Exam: GENERAL: Not in distress. Alert and Oriented HEENT: EOMI, PERRLA MOUTH: Good oral hygiene NECK:No JVD, No lymph nodes. CHEST AND LUNGS: Normal breath sounds, no wheezes or crackles HEART: S1 and S2 normal, no murmurs ABDOMEN: Soft, nontender, no organomegaly SKIN: Normal color, no rashes, no lesions EXTREMITIES: No deformity, no edema, no tenderness, no joint swelling or clubbing NEUROLOGICAL: Normal cognition, normal motor and sensory exam. - Assessment and Plan (1) CHF exacerbation Current Visit: Yes Status: Acute Assessment and Plan: Patient on initial presentation had a CHF exacerbation. Patient appears euvolemic now. We will hold off on diuretics. We will continue to monitor. We will continue to trend blood pressure. (2) DVT prophylaxis Current Visit: No Status: Acute Assessment and Plan: Heparin SQ (3) Charcot's joint, right ankle and foot Current Visit: No Status: Acute Assessment and Plan: Chronic. Patient states he has had multiple surgial procedures on his foot and thiks his foot looks much better now than it did in the past. (4) Chronic kidney disease Current Visit: No Status: Chronic (5) COPD (chronic obstructive pulmonary disease) Current Visit: Yes Status: Acute Assessment and Plan: Continue breathing treatments and O2 support. (6) Hospital-acquired pneumonia Current Visit: Yes Status: Suspected Assessment and Plan: Patient finished antibiotics. Clear lung [place] Continue to monitor. (7) Acute and chronic respiratory failure with hypoxia Current Visit: Yes Status: Acute Assessment and Plan: Patient presented to the emergency department with complaint of difficulty breathing and found to have hypoxia on initial presentation. Patient was found to hospital-acquired pneumonia and then subsequently placed in the ICU and subsequently intubated. Patient recently extubated on March 03. Then patient was transferred to [facility]. Patient has finished his antibiotic course. Patient is not currently on any antibiotic. Patient is saturating about 92% on 5 L oxygen. We will continue to monitor. Palliative care is on consult. A family meeting was panned for today but has not happened yet. (8) Goals of care, counseling/discussion Current Visit: Yes Status: Acute Assessment and Plan: Palliative care Consulted. Patient is currently full code. - Time Spent with Patient Total time spent is greater than 50% in coordination of care (as documented) at patient's floor/unit and/or counseling patient: Internal Medicine: Result - Labs CBC & Chem 7: 03/07/19 05:00 03/07/19 05:00 Labs: Short CBC 03/07/19 Range/Units 05:00 WBC 11.0 (4.3-11.1) K/mcL Hgb 8.3 L (12.9-16.9) g/dL Hct 26.6 L (37.5-50.1) % Plt Count 244 (140-400) K/mcL Neutrophils # 7.6 (1.6-8.9) K/mcL BMP 03/07/19 05:00 Sodium 136 Potassium 4.0 Chloride 103 Carbon Dioxide 28 BUN 38 H Creatinine 1.35 H Glucose 94 Calcium 8.2 L - ABG Interpretation ABG results: ABG ABG pH 7.46 pH Units (7.32-7.45) H 03/03/19 05:23 ABG pCO2 39 mmHg (35-45) 03/03/19 05:23 ABG pO2 71 mmHg (85-104) L 03/03/19 05:23 ABG O2 Saturation 95 % (95-98) 03/03/19 05:23 PT/INR, D-dimer PT 13.5 Seconds (9.4-12.1) H 02/24/19 12:55 Consult Discharge Plan - Plan Referrals: Myron Henderson [Primary Care Provider] - (1) CHF exacerbation Qualifiers: Heart failure type: diastolic Qualified Code(s): I50.33 - Acute on chronic diastolic (congestive) heart failure (4) Chronic kidney disease Qualifiers: Chronic kidney disease stage: stage 4 (severe) Qualified Code(s): N18.4 - Chronic kidney disease, stage 4 (severe) (5) COPD (chronic obstructive pulmonary disease) Qualifiers: COPD type: unspecified COPD Qualified Code(s): J44.9 - Chronic obstructive pulmonary disease, unspecified
--- NOTE | 2019-03-07 16:40 | Palliative Progress Note ---
Date of Encounter: 03/07/19 Time of Encounter: 16:45 - Assessment and plan (1) Generalized pain Current Visit: Yes Status: Acute Assessment and plan: Continue [place] PRN for pain. Only utilized x1 last 24 hours. (2) Constipation Current Visit: No Status: Acute Assessment and plan: + BM yesterday. Continue Miralax daily Qualifiers: Constipation type: slow transit constipation Qualified Code(s): K59.01 - Slow transit constipation (3) Advance care planning Current Visit: Yes Status: Acute Assessment and plan: Met with patient, daughter, Elisa and grandson regarding goals of care and advanced care planning. Healthcare power of commercial attorney and living will were completed. Patient selected , Angle as primary agent, Elisa as 1st alternate, and daughter Maria Antonia as 2nd alternate. DIscussed goals of care and code status. Patient desires to continue aggressive management of his medical problems, however, does not want resuscitation in event of cardiac arrest, and patient has also decided he does NOT want to be intubated again or go back on ventilator. Code status transitioned to DNR/DNI and state DNR form signed by patient. Family provided copies of documents and placed on medical record. Patient was refusing rehab, however after speaking with daughter he is open to at least consider this. 1st choice [facility] be [facility], and 2nd choice would be the [facility] in [place]. shearing shed worker has been notified. I did give them some information related to hospice care, if his consider would deteriorate and they decided to transition to comfort care. Daughter and patient appreciative of information. Wrapping up my visit, pie filling mixer Amanda Elmore arrived to meet with family and provide education on diet and fluid restrictions. (4) Goals of care, counseling/discussion Current Visit: Yes Status: Acute (5) Charcot's joint, right ankle and foot Current Visit: No Status: Acute (6) Palliative care encounter Current Visit: Yes Status: Acute (7) COPD (chronic obstructive pulmonary disease) Current Visit: Yes Status: Acute Qualifiers: COPD type: unspecified COPD Qualified Code(s): J44.9 - Chronic obstructive pulmonary disease, unspecified (8) Acute and chronic respiratory failure with hypoxia Current Visit: Yes Status: Acute (9) Acute kidney injury superimposed on CKD Current Visit: Yes Status: Acute - Time Spent With Patient Total time spent is greater than 50% in coordination of care (as documented) at patient's floor/unit and/or counseling patient: - Subjective Interval history: Patient awake and alert, off bipap. Oxygen currently at 4LPM. Sats currently 95%. Vitals stable. Renal function continues to improve. Daughter and grandson present.. Patient denies complaints at present. + BM yesterday. - Constitutional Vitals: Abnormal lab results WBC 18.1 K/mcL (4.3-11.1) H 03/04/19 04:00 RBC 3.09 M/mcL (4.19-5.50) L 03/07/19 05:00 Hgb 8.3 g/dL (12.9-16.9) L 03/07/19 05:00 Hct 26.6 % (37.5-50.1) L 03/07/19 05:00 MCH 26.9 pg (28.0-33.3) L 03/07/19 05:00 MCHC 31.2 g/dL (31.6-35.5) L 03/07/19 05:00 RDW 18.1 % (11.5-14.5) H 03/07/19 05:00 MPV 12.5 fL (9.4-12.4) H 03/03/19 04:00 Neutrophils # 12.8 K/mcL (1.6-8.9) H 03/03/19 04:00 Lymphocytes # 0.5 K/mcL (0.6-4.6) L 03/02/19 04:53 Monocytes # 1.5 K/mcL (0.0-1.3) H 02/25/19 02:22 Eosinophils # 0.8 K/mcL (0.0-0.6) H 03/07/19 05:00 Nucleated RBCs/100 WBC 0.2 /100 WBC (0) H 03/02/19 04:53 Immature Plt Fraction 6.5 % (1.1-6.1) H 03/04/19 04:00 Hypochromasia Present (Not Present) A 03/01/19 04:04 Anisocytosis 1+ (Not Present) A 03/01/19 04:04 Microcytosis Present (Not Present) A 03/01/19 04:04 PT 13.5 Seconds (9.4-12.1) H 02/24/19 12:55 ABG pH 7.46 pH Units (7.32-7.45) H 03/03/19 05:23 ABG pCO2 48 mmHg (35-45) H 02/26/19 15:31 ABG pO2 71 mmHg (85-104) L 03/03/19 05:23 ABG HCO3 20 mEq/L (21-27) L 02/27/19 05:02 ABG Total CO2 29 mEq/L (20-26) H 03/03/19 05:23 ABG O2 Saturation 99 % (95-98) H 02/28/19 04:44 ABG Base Excess -4 mEq/L (-2 to 3) L 03/01/19 04:36 VBG pCO2 28 mmHg (41-51) L 02/23/19 09:26 VBG pO2 131 mmHg (25-50) H 02/23/19 09:26 VBG HCO3 18 mEq/L (21-27) L 02/23/19 09:26 Sodium 135 mEq/L (136-145) L 03/06/19 07:55 Potassium 3.2 mEq/L (3.5-5.1) L 03/05/19 08:20 Chloride 108 mEq/L (98-107) H 03/04/19 04:00 Carbon Dioxide 30 mEq/L (23-29) H 03/05/19 08:20 BUN 38 mg/dL (8-23) H 03/07/19 05:00 Creatinine 1.35 mg/dL (0.70-1.30) H 03/07/19 05:00 Est GFR ( Amer) 59 (> 60) L 03/05/19 08:20 Est GFR (Non-Af Amer) 53 (> 60) L 03/07/19 05:00 BUN/Creatinine Ratio 28 (6-26) H 03/07/19 05:00 Glucose 136 mg/dL (70-105) H 03/05/19 08:20 POC Glucose 171 mg/dL (70-99) H 03/06/19 19:24 Serum Osmolality 275 mOsm/kg (280-300) L 02/23/19 11:07 Calculated Osmolality 309 (280-300) H 03/05/19 08:20 Calcium 8.2 mg/dL (8.6-10.3) L 03/07/19 05:00 Magnesium 2.7 mg/dL (1.6-2.6) H 02/28/19 16:06 B-Natriuretic Peptide 633 pg/mL (Less than 100) H 02/22/19 10:13 Procalcitonin 1.33 ng/mL (0.00-0.15) H 02/26/19 14:10 Urine Clarity Cloudy (Clear) A 02/26/19 16:00 Urine Protein 30 mg/dL (Neg-Trace) H 02/26/19 16:00 Urine Blood Moderate (Negative) H 02/26/19 16:00 Ur Leukocyte Esterase Large (Negative) H 02/26/19 16:00 Urine Microscopic RBC 30-50 per hpf (0-3) H 02/26/19 16:00 Urine Microscopic WBC TNTC per hpf (0-3) H 02/26/19 16:00 Ur Squamous Epith Cells Moderate per lpf (None-Few) H 02/26/19 16:00 Ur Culture Indicated? YES (NO) A 02/26/19 16:00 Urine Osmolality 189 mOsm/kg (300-1090) L 02/23/19 12:42 Nasal Screen MRSA (PCR) DETECTED (Not Detect) A 02/23/19 12:26 Vancomycin Trough 21 mcg/mL (5-10) H 02/24/19 09:38 Hep Bs Antibody < 3.10 mIU/mL (10.00-) L 03/02/19 12:52 General appearance: Present: no acute distress - Respiratory Respiratory exam: Present: decreased breath sounds, CTAB - Cardiovascular Cardiovascular exam: Present: irregular rhythm - GI/Abdominal GI/Abdominal exam: Present: normal bowel sounds, soft - Additional comments: [place] with clear yellow urine - Extremities Exam Additional comments: 1+ bilateral edema to lower extremities. - Neurological Exam Neurological exam: Present: alert, oriented X3, strengths equal and symetr throughout - Skin Skin exam: Present: dry, pallor, warm Palliative Quality Palliative Quality: Screen for Code Status: NA (Patient sedated and intubated, no family present), Screen for Goals of Care: NA, Screen for Pain: Yes, If Pain Regimen Started, Initiate Bowel Regimen: NA, Screen for Nausea/Vomitting: NA Code Status: 02/23/19 07:14 CODE [Resuscitation Status: Active] [RES] Routine Comment: Resuscitation Status: Full Code - Labs CBC & Chem 7: 03/07/19 05:00 03/07/19 05:00 Labs: Laboratory Results - last 24 hr 03/06/19 03/06/19 03/06/19 11:45 16:32 19:24 WBC RBC Hgb Hct MCV MCH MCHC RDW Plt Count MPV Immature Gran % Seg Neutrophils % Lymphocytes % Monocytes % Eosinophils % Basophils % Neutrophils # Lymphocytes # Monocytes # Eosinophils # Basophils # Sodium Potassium Chloride Carbon Dioxide BUN Creatinine Est GFR ( Amer) Est GFR (Non-Af Amer) BUN/Creatinine Ratio Glucose POC Glucose 172 H 98 171 H Calculated Osmolality Calcium 03/07/19 03/07/19 03/07/19 05:00 05:00 07:42 WBC 11.0 RBC 3.09 L Hgb 8.3 L Hct 26.6 L MCV 86.1 MCH 26.9 L MCHC 31.2 L RDW 18.1 H Plt Count 244 MPV 12.4 Immature Gran % 1.4 Seg Neutrophils % 69.4 Lymphocytes % 13.7 Monocytes % 8.3 Eosinophils % 7.1 Basophils % 0.1 Neutrophils # 7.6 Lymphocytes # 1.5 Monocytes # 0.9 Eosinophils # 0.8 H Basophils # 0.0 Sodium 136 Potassium 4.0 Chloride 103 Carbon Dioxide 28 BUN 38 H Creatinine 1.35 H Est GFR ( Amer) > 60 Est GFR (Non-Af Amer) 53 L BUN/Creatinine Ratio 28 H Glucose 94 POC Glucose 97 Calculated Osmolality 291 Calcium 8.2 L - ABG Interpretation ABG results: ABG ABG pH 7.46 pH Units (7.32-7.45) H 03/03/19 05:23 ABG pCO2 39 mmHg (35-45) 03/03/19 05:23 ABG pO2 71 mmHg (85-104) L 03/03/19 05:23 ABG O2 Saturation 95 % (95-98) 03/03/19 05:23 PT/INR, D-dimer PT 13.5 Seconds (9.4-12.1) H 02/24/19 12:55 Consult Discharge Plan - Plan Instructions: Heart Healthy Diet (DC), Fluid Restriction (DC), Pneumonia (DC) Referrals: Myron Henderson [Primary Care Provider] -
[2019-03-07] MEDS ORDERED: Insulin LISPRO 300 UNITS/3 ML VIAL SQ SCH (21:00)
[2019-03-08] MEDS: Ipratropium/Albuterol Neb 3 ML IH SCH ×5 (00:05→15:12)
[2019-03-08 01:47] LABS: Basophils % 0.2 %; Eosinophils # 0.7 K/mcL (0.0-0.6); Hematocrit 28.1 % (37.5-50.1); Hemoglobin 8.9 g/dL (12.9-16.9); Immature Granulocytes % 1.9 % (0-4); Lymphocytes # 1.7 K/mcL (0.6-4.6); Lymphocytes % 14.1 %; Mean Corpuscular HGB Conc 31.7 g/dL (31.6-35.5); Mean Corpuscular Hemoglobin 27.4 pg (28.0-33.3); Mean Corpuscular Volume 86.5 fL (83.0-100.0); Mean Platelet Volume 11.3 fL (9.4-12.4); Monocytes # 0.9 K/mcL (0.0-1.3); Monocytes % 7.3 %; Neutrophils # 8.5 K/mcL (1.6-8.9); Platelet Count 215 K/mcL (140-400); Red Blood Count 3.25 M/mcL (4.19-5.50); Red Cell Distribution Width 17.9 % (11.5-14.5); Segmented Neutrophils % 70.5 %; White Blood Count 12.1 K/mcL (4.3-11.1)
[2019-03-08 02:04] LABS: BUN/Creatinine Ratio 24 (6-26); Blood Urea Nitrogen 32 mg/dL (8-23); Calcium 8.4 mg/dL (8.6-10.3); Carbon Dioxide 26 mEq/L (23-29); Chloride 102 mEq/L (98-107); Glucose 79 mg/dL (70-105); Osmolality,Calculated 284 (280-300); Sodium 134 mEq/L (136-145); eGFR For African Americans > 60 (> 60); eGFR For Non-African Americans 52 (> 60)
[2019-03-08] MEDS: *HR* Heparin 5,000 UNIT/ML VIAL SQ SCH ×2 (05:05→15:53)
[2019-03-08] MEDS: Budesonide/Formoterol 160/4.5 1 PUFF INH IH SCH (07:18)
[2019-03-08 07:56] VITALS: BP 118/62
[2019-03-08] MEDS: Loratadine 10 MG TABLET PO SCH (08:36)
[2019-03-08] MEDS: Aspirin Enteric Coated 81 MG Tablet PO SCH (08:36)
[2019-03-08] MEDS: Multivit/Ca/Min/Fe/FA 1 TAB TABLET PO SCH (08:36)
[2019-03-08] MEDS: FLUoxetine 20 MG CAPSULE PO SCH (08:36)
[2019-03-08] MEDS: amLODIPine 5 MG TABLET PO SCH (08:36)
[2019-03-08] MEDS: Folic Acid 1 MG TABLET PO SCH (08:37)
[2019-03-08] MEDS: *HR* HYDROcodone/Acet 5/325 mg TABLET PO PRN (08:37)
[2019-03-08] MEDS: Insulin LISPRO 300 UNITS/3 ML VIAL SQ SCH ×2 (08:40→11:37)
--- NOTE | 2019-03-08 09:43 | Event Note ---
Date of Encounter: 03/08/19 Time of Encounter: 09:40 Patient awake and alert, currently on bipap. Denies complaints. Slept well last pm. HD cath has been removed. Labs stable. Adv care planning discussion completed yesterday, adv directives completed , and code status addressed and changed appropriately. D/W social worker palliative care and she is making referral to [facility] in [place]. Palliative will sign off. Please call if needed.
--- NOTE | 2019-03-08 14:10 | Discharge Summary ---
Date of Encounter: 03/08/19 Time of Encounter: 14:10 - Discharge Diagnosis (1) CHF exacerbation Priority: Primary Status: Acute Qualifiers: Heart failure type: diastolic Qualified Code(s): I50.33 - Acute on chronic diastolic (congestive) heart failure (2) Hospital-acquired pneumonia Priority: Secondary Status: Suspected (3) DVT prophylaxis Priority: Secondary Status: Acute (4) Charcot's joint, right ankle and foot Priority: Secondary Status: Acute (5) Chronic kidney disease Priority: Secondary Status: Chronic Qualifiers: Chronic kidney disease stage: stage 4 (severe) Qualified Code(s): N18.4 - Chronic kidney disease, stage 4 (severe) (6) COPD (chronic obstructive pulmonary disease) Priority: Secondary Status: Acute Qualifiers: COPD type: unspecified COPD Qualified Code(s): J44.9 - Chronic obstructive pulmonary disease, unspecified (7) Acute and chronic respiratory failure with hypoxia Priority: Secondary Status: Acute (8) Goals of care, counseling/discussion Priority: Secondary Status: Acute Hospital course: Mr. Newsome is a 64 year old male with past medical history of CHF, CAD with chronic chest pain, DM, OK with stent placement, and COPD was admitted for difficulty in breathing on 02/22. he was found to hae CHF exacerbation and was managed with diuresis and NIV. His stay in the hospital became complicated by pneumonia requiring intubation and IV antibiotics. He completed a full course of antibiotics during his stay. he has been intubated and is currently at his home level of IO2 of 2L/min. Discharge discussed with: patient, nurse, social work, case management - Time Spent with Patient Total time spent providing and/or coordinating discharge services: Time spent: Greater than 30 minutes (50) - Discharge Medications Prescriptions: Continued Tiotropium [Spiriva] 18 mcg IH DAILY Clopidogrel [Plavix] 75 mg PO DAILY Pantoprazole Sodium [Protonix] 20 mg PO DAILY [place]-3 Fatty Acids/Fish Oil [Eql [place]-3 Fish Oil 1,000 mg] 1 cap PO DAILY Nitroglycerin [Nitrostat] 0.4 mg SL Q5MIN PRN MDD MAX 3 DOSE/24HOURS PRN Reason: Chest Pain Montelukast [Singulair] 10 mg PO HS LORazepam [Ativan] 0.5 mg PO BID Empagliflozin [Jardiance] 10 mg PO DAILY GlipiZIDE XL (24 HR) [Glucotrol XL] 5 mg PO 0800 Folic Acid 1 mg PO DAILY EPINEPHrine [Epipen] 0.3 mg IM ONCE PRN PRN Reason: Anaphylaxis Atorvastatin [Lipitor] 40 mg PO DAILY Aspirin [Lo-Dose Aspirin EC] 81 mg PO DAILY Fluticasone/Salmeterol [Advair Hfa 230-21 Mcg Inhaler] 2 puff IH BID Albuterol Neb [Proventil Neb] 2.5 mg IH Q4HR PRN PRN Reason: Shortness Of Breath Isosorbide MONOnitrate [Isosorbide Mononitrate ER] 30 mg PO DAILY Metoprolol Succinate 50 mg PO DAILY Albuterol Sulfate [Ventolin Hfa] 2 puff IH Q4H PRN PRN Reason: Shortness Of Breath Amlodipine Besylate 10 mg PO DAILY Fluticasone Propionate Nasal [Flonase] 2 spr NS DAILY PRN PRN Reason: Allergy Symptoms Magnesium Oxide [Magnesium] 400 mg PO DAILY Pramlintide Acetate [Symlinpen 120] 120 mcg SQ TID Multivit-Min/Iron/Folic Acid/K [Adults Multivitamin Tablet] 1 each PO DAILY FLUoxetine HCl [Prozac] 80 mg PO DAILY Ferrous Sulfate [Iron] 325 mg PO DAILY Docusate [Colace] 100 mg PO BID PRN PRN Reason: Constipation Tamsulosin HCl [Flomax] 0.4 mg PO DAILY Furosemide [Lasix] 40 mg PO BID Loratadine [Allergy Relief] 10 mg PO DAILY Catheter [Clean-Cath] 1 each MC TID PRN #30 each PRN Reason: unable to urinate OxyCODONE/APAP 10/325 [Percocet 10/325 MG] 1 tab PO Q4HR PRN PRN Reason: Pain Omalizumab [XOLAIR (For Outpatient Infusion)] 150 mg SQ Q2W predniSONE [PredniSONE] 30 mg PO BID Gabapentin 800 mg PO QID Home Medications: Albuterol Neb [Proventil Neb] 2.5 mg IH Q4HR PRN 09/01/18 [History] Aspirin [Lo-Dose Aspirin EC] 81 mg PO DAILY 09/01/18 [History] Atorvastatin [Lipitor] 40 mg PO DAILY 09/01/18 [History] Clopidogrel [Plavix] 75 mg PO DAILY 09/01/18 [History] EPINEPHrine [Epipen] 0.3 mg IM ONCE PRN 09/01/18 [History] Empagliflozin [Jardiance] 10 mg PO DAILY 09/01/18 [History] Fluticasone/Salmeterol [Advair Hfa 230-21 Mcg Inhaler] 2 puff IH BID 09/01/18 [History] Folic Acid 1 mg PO DAILY 09/01/18 [History] GlipiZIDE XL (24 HR) [Glucotrol XL] 5 mg PO 0800 09/01/18 [History] LORazepam [Ativan] 0.5 mg PO BID 09/01/18 [History] Montelukast [Singulair] 10 mg PO HS 09/01/18 [History] Nitroglycerin [Nitrostat] 0.4 mg SL Q5MIN PRN MDD MAX 3 DOSE/24HOURS 09/01/18 [History] Mead-3 Fatty Acids/Fish Oil [Eql Mead-3 Fish Oil 1,000 mg] 1 cap PO DAILY 09/01/18 [History] Pantoprazole Sodium [Protonix] 20 mg PO DAILY 09/01/18 [History] Tiotropium [Spiriva] 18 mcg IH DAILY 09/01/18 [History] Albuterol Sulfate [Ventolin Hfa] 2 puff IH Q4H PRN 10/14/18 [History] Amlodipine Besylate 10 mg PO DAILY 10/14/18 [History] Fluticasone Propionate Nasal [Flonase] 2 spr NS DAILY PRN 10/14/18 [History] Isosorbide MONOnitrate [Isosorbide Mononitrate ER] 30 mg PO DAILY 10/14/18 [History] Magnesium Oxide [Magnesium] 400 mg PO DAILY 10/14/18 [History] Metoprolol Succinate 50 mg PO DAILY 10/14/18 [History] Pramlintide Acetate [Symlinpen 120] 120 mcg SQ TID 10/14/18 [History] Docusate [Colace] 100 mg PO BID PRN 10/27/18 [History] FLUoxetine HCl [Prozac] 80 mg PO DAILY 10/27/18 [History] Ferrous Sulfate [Iron] 325 mg PO DAILY 10/27/18 [History] Multivit-Min/Iron/Folic Acid/K [Adults Multivitamin Tablet] 1 each PO DAILY 10/27/18 [History] Tamsulosin HCl [Flomax] 0.4 mg PO DAILY 10/28/18 [History] Furosemide [Lasix] 40 mg PO BID 11/30/18 [History] Loratadine [Allergy Relief] 10 mg PO DAILY 11/30/18 [History] Catheter [Clean-Cath] 1 each MC TID PRN #30 each 12/22/18 [Rx] Omalizumab [XOLAIR (For Outpatient Infusion)] 150 mg SQ Q2W 02/22/19 [History] OxyCODONE/APAP 10/325 [Percocet 10/325 MG] 1 tab PO Q4HR PRN 02/22/19 [History] Gabapentin 800 mg PO QID 02/23/19 [History] predniSONE [PredniSONE] 30 mg PO BID 02/23/19 [History] Allergies/Adverse Reactions: Allergy/AdvReac Type Severity Reaction Status Date / Time dapagliflozin [From [facility]] Allergy Hives Verified 10/28/18 13:46 naphazoline Allergy Hives Verified 10/28/18 13:46 cath DYE Allergy Hives Uncoded 10/28/18 13:46 Date of admission: 02/23/19 14:44 Primary care physician: Caio Henderson Consults: 02/22/19 22:24 Consult to Nurse Navigator [CONS] Routine Comment: 02/23/19 10:43 Consult to Nephrology [CONS] Routine Consulting Provider: Kidney Lisa/ZONIA/WEI/MADELINE Reason for Consult: worsening of chronic hyponatremia, new hyperkalemia, ERICK on CKD 4 Call Completed: No 02/23/19 13:41 Consult to Invasive Line Access Team [CONS] Routine Reason for Consult: Picc Line Insertion Line Type: PICC 02/23/19 16:21 Consult to Critical Care [CONS] Routine Consulting Provider: [facility] [place] Reason for Consult: CVC placement Call Completed: Yes 02/25/19 09:02 Consult to Wound Care [CONS] Routine Reason for Consult: charcot foot Call Completed: No 02/25/19 15:47 Consult to Pulmonology [CONS] Routine Consulting Provider: [facility] Reason for Consult: continue critical care of patient with acute resp hypoxia. Call Completed: Yes 02/25/19 15:49 Consult to Critical Care [CONS] Routine Consulting Provider: [facility] [place] Reason for Consult: management of worsening acute on chronic hypoxic resp failure; bipap/intubation Call Completed: Yes 02/27/19 11:04 Consult to Nutrition [CONS] Routine Comment: Consulting Provider: NUTRITION Reason for Dietary Consult: Tube Feed Start & Manage Consult to Palliative Care [CONS] Routine Comment: Consulting Provider: Palliative Care Lisa Reason for Consult: chronic medical conditions resistant to therapy Call Completed: No 03/02/19 09:34 Consult to Interventional Radiology [CONS] Routine Consulting Provider: Radiology Interventional Cols Reason for Consult: Temporary dialysis catheter placement Call Completed: No 03/02/19 13:00 Consult to Dialysis [CONS] ONCE 03/06/19 18:14 Consult to Physical Therapy [CONS] Routine Comment: Evaluate, develop and implement POC Reason for Consult: eval and treat Does patient have active BEDREST order?: No Is patient medically & hemodynamically stable?: Yes Patient assessed for mobility or mobilized this visit?: No 03/06/19 18:15 Consult to Occupational Therapy [CONS] Routine Comment: Evaluate, develop and implement POC Reason for Consult: eval and treat Does patient have active BEDREST order?: No Is patient medically & hemodynamically stable?: Yes Patient assessed for mobility or mobilized this visit?: No Consult to Chemical Process Project Engineer [CONS] Routine Reason for SW Consult: From home with spouse. Atempting to wean down o2. PT/OT consulted. - Constitutional Vitals: Temp Pulse Resp BP Pulse Ox 36.7 C 87 16 118/62 99 03/08/19 07:55 03/08/19 07:55 03/08/19 11:35 03/08/19 07:55 03/08/19 11:35 General appearance: Present: A&O X 3 Exam: GENERAL: Not in distress. Alert and Oriented HEENT: EOMI, PERRLA MOUTH: Good oral hygiene NECK:No JVD, No lymph nodes. CHEST AND LUNGS: Normal breath sounds, no wheezes or crackles HEART: S1 and S2 normal, no murmurs ABDOMEN: Soft, nontender, no organomegaly SKIN: Normal color, no rashes, no lesions EXTREMITIES: No deformity, no edema, no tenderness, no joint swelling or clubbing NEUROLOGICAL: Normal cognition, normal motor and sensory exam. - Patient Status Disposition: Transfer SNF Condition: Good Functional capacity at discharge: bed bound Overall status at discharge: patient is progressing back to baseline - Discharge Instructions Instructions: Heart Healthy Diet (DC), Fluid Restriction (DC), Pneumonia (DC) Follow Up With: Myron Henderson [Primary Care Provider] - - Diet and Activity Activity: as per physical therapy Diet: advance to your usual diet
--- NOTE | 2019-03-08 14:23 | Physician Discharge Referral ---
ExtendedCare Referral Info Transfer To: [facility] Institutional Level of Care: Skilled - Diagnosis (1) CHF exacerbation Priority: Primary Status: Acute (2) Hospital-acquired pneumonia Priority: Secondary Status: Suspected (3) DVT prophylaxis Priority: Secondary Status: Acute (4) Charcot's joint, right ankle and foot Priority: Secondary Status: Acute (5) Chronic kidney disease Priority: Secondary Status: Chronic (6) COPD (chronic obstructive pulmonary disease) Priority: Secondary Status: Acute (7) Acute and chronic respiratory failure with hypoxia Priority: Secondary Status: Acute (8) Goals of care, counseling/discussion Priority: Secondary Status: Acute - Transfer Medications Home Medications: Albuterol Neb [Proventil Neb] 2.5 mg IH Q4HR PRN 09/01/18 [History] Aspirin [Lo-Dose Aspirin EC] 81 mg PO DAILY 09/01/18 [History] Atorvastatin [Lipitor] 40 mg PO DAILY 09/01/18 [History] Clopidogrel [Plavix] 75 mg PO DAILY 09/01/18 [History] EPINEPHrine [Epipen] 0.3 mg IM ONCE PRN 09/01/18 [History] Empagliflozin [Jardiance] 10 mg PO DAILY 09/01/18 [History] Fluticasone/Salmeterol [Advair Hfa 230-21 Mcg Inhaler] 2 puff IH BID 09/01/18 [History] Folic Acid 1 mg PO DAILY 09/01/18 [History] GlipiZIDE XL (24 HR) [Glucotrol XL] 5 mg PO 0800 09/01/18 [History] LORazepam [Ativan] 0.5 mg PO BID 09/01/18 [History] Montelukast [Singulair] 10 mg PO HS 09/01/18 [History] Nitroglycerin [Nitrostat] 0.4 mg SL Q5MIN PRN MDD MAX 3 DOSE/24HOURS 09/01/18 [History] [place]-3 Fatty Acids/Fish Oil [Eql [place]-3 Fish Oil 1,000 mg] 1 cap PO DAILY 09/01/18 [History] Pantoprazole Sodium [Protonix] 20 mg PO DAILY 09/01/18 [History] Tiotropium [Spiriva] 18 mcg IH DAILY 09/01/18 [History] Albuterol Sulfate [Ventolin Hfa] 2 puff IH Q4H PRN 10/14/18 [History] Amlodipine Besylate 10 mg PO DAILY 10/14/18 [History] Fluticasone Propionate Nasal [Flonase] 2 spr NS DAILY PRN 10/14/18 [History] Isosorbide MONOnitrate [Isosorbide Mononitrate ER] 30 mg PO DAILY 10/14/18 [History] Magnesium Oxide [Magnesium] 400 mg PO DAILY 10/14/18 [History] Metoprolol Succinate 50 mg PO DAILY 10/14/18 [History] Pramlintide Acetate [Symlinpen 120] 120 mcg SQ TID 10/14/18 [History] Docusate [Colace] 100 mg PO BID PRN 10/27/18 [History] FLUoxetine HCl [Prozac] 80 mg PO DAILY 10/27/18 [History] Ferrous Sulfate [Iron] 325 mg PO DAILY 10/27/18 [History] Multivit-Min/Iron/Folic Acid/K [Adults Multivitamin Tablet] 1 each PO DAILY 10/27/18 [History] Tamsulosin HCl [Flomax] 0.4 mg PO DAILY 10/28/18 [History] Furosemide [Lasix] 40 mg PO BID 11/30/18 [History] Loratadine [Allergy Relief] 10 mg PO DAILY 11/30/18 [History] Catheter [Clean-Cath] 1 each MC TID PRN #30 each 12/22/18 [Rx] Omalizumab [XOLAIR (For Outpatient Infusion)] 150 mg SQ Q2W 02/22/19 [History] OxyCODONE/APAP 10/325 [Percocet 10/325 MG] 1 tab PO Q4HR PRN 02/22/19 [History] Gabapentin 800 mg PO QID 02/23/19 [History] predniSONE [PredniSONE] 30 mg PO BID 02/23/19 [History] Allergies/Adverse Reactions: Allergy/AdvReac Type Severity Reaction Status Date / Time dapagliflozin [From [facility]] Allergy Hives Verified 10/28/18 13:46 naphazoline Allergy Hives Verified 10/28/18 13:46 cath DYE Allergy Hives Uncoded 10/28/18 13:46 - Respiratory Orders Smoking Cessation: Smoking cessation has been advised. For more information, call the [employer] Tobacco Quit Line at 0-680-VPDB-NOW. - Advance Directives Code Status: DNR-Arrest/Don't Intubate - Rehabiliation Orders Rehab Orders: Evaluation for Physical Therapy, Evaluation for Occupational Therapy CERTIFICATION: I certify that the transfer of the above named patient to an Extended Care Facility is necessary for the continuing treatment of the diagnosis listed. The above information is true and accurate reflection of patient's current condition. Confidential - Redisclosure prohibited without a patient's written consent.
== END 2019-03-08 16:32 | DRG 870 ==
LOC: 2ANU 09:32 → EMEROOARM 09:32 → SUATTDRO 13:23 → 2ANU 14:20 → ICNU 02-23 14:37 → SUATTDRO 02-23 14:44 → 2NENU 02-24 16:02 → ICNU 02-25 16:44 → 2NNU 03-04 18:19 → 3NENU 03-08 10:44
PROVIDERS: ADMIT Internal Medicine Nephrology; ATTEND Internal Medicine

== ENCOUNTER 2019-05-16 15:07 | Observation (INO) ==
[2019-05-16] MEDS ORDERED: Isovue-370 500 ML BOTTLE IVP ONE (15:32)
[2019-05-16] MEDS ORDERED: 0.9 % Sodium Chloride 500 ML IVC ONE (15:32)
[2019-05-16] MEDS ORDERED: levoFLOXacin 750 MG/150 ML 750 MG/150 ML BAG IVPB ONE (15:38)
[2019-05-16] MEDS ORDERED: Piperacillin/Tazobactam 3.375 GM in 0.9 % Sodium Chloride Mini Bag 100 ML IVPB ONE (15:38)
[2019-05-16 15:57] LABS: Basophils # 0.2 K/mcL (0.0-0.2); Hematocrit 28.8 % (37.5-50.1); Hemoglobin 9.2 g/dL (12.9-16.9); Mean Corpuscular HGB Conc 31.9 g/dL (31.6-35.5); Mean Corpuscular Hemoglobin 27.5 pg (28.0-33.3); Mean Corpuscular Volume 86.2 fL (83.0-100.0); Mean Platelet Volume 10.2 fL (9.4-12.4); Platelet Count 434 K/mcL (140-400); Red Blood Count 3.34 M/mcL (4.19-5.50); Red Cell Distribution Width 18.3 % (11.5-14.5); White Blood Count 19.1 K/mcL (4.3-11.1)
[2019-05-16 16:00] LABS: VBG HCO3 26 mEq/L (21-27); VBG PCO2 39 mmHg (41-51); VBG PH 7.44 pH Units (7.32-7.42); VBG PO2 74 mmHg (25-50)
[2019-05-16] MEDS ORDERED: methylPREDNISolone 125 MG/2 ML VIAL IVP ONE (16:13)
[2019-05-16] MEDS ORDERED: Ipratropium/Albuterol Neb 3 ML IH ONE (16:13)
[2019-05-16] MEDS ORDERED: Furosemide 40 MG/4 ML VIAL IVP ONE (16:13)
[2019-05-16 16:20] LABS: Lymphocytes # 0.8 K/mcL (0.6-4.6); Monocytes # 1.2 K/mcL (0.0-1.3); Neutrophils # 16.6 K/mcL (1.6-8.9)
[2019-05-16 16:21] LABS: Basophilic Stippling 1+ (Not Present); Polychromasia 1+ (Not Present)
[2019-05-16 16:25] LABS: BUN/Creatinine Ratio 18 (6-26); Blood Urea Nitrogen 22 mg/dL (8-23); Calcium 8.6 mg/dL (8.6-10.3); Carbon Dioxide 24 mEq/L (23-29); Chloride 99 mEq/L (98-107); Glucose 88 mg/dL (70-105); Osmolality,Calculated 279 (280-300); Potassium 3.3 mEq/L (3.5-5.1); Sodium 133 mEq/L (136-145); Troponin I < 0.03 ng/mL (< 0.04); eGFR For African Americans > 60 (> 60); eGFR For Non-African Americans > 60 (> 60)
[2019-05-16] MEDS ORDERED: Naloxone 0.4 MG/ML INJ IVP PRN (18:13)
[2019-05-16] MEDS ORDERED: Dextrose Gel 15 GM/37.5 ML TUBE PO PRN ×2 (18:15)
[2019-05-16] MEDS ORDERED: *HR* Dextrose 50 % in Water (Syg) 50 ML SYRINGE IVP PRN (18:15)
[2019-05-16] MEDS ORDERED: D5% in Water 1,000 ML IVC PRN (18:15)
[2019-05-16] MEDS ORDERED: Fluticasone Propionate Nasal 50 MCG/SPRAY BOTTLE NS PRN (18:38)
[2019-05-16] MEDS ORDERED: CATHETER MC PRN (18:38)
[2019-05-16] MEDS ORDERED: *HR* OxyCODONE/APAP 10/325 TABLET PO PRN (18:38)
[2019-05-16] MEDS ORDERED: OMALIZUMAB 150 MG SQ SCH (18:45)
[2019-05-16] MEDS: Gabapentin 400 MG CAPSULE PO SCH (20:28)
[2019-05-16] MEDS: *HR* LORazepam 0.5 MG TABLET PO SCH (20:28)
[2019-05-16] MEDS ORDERED: PRAMLINTIDE ACETATE SQ SCH (21:00)
[2019-05-16] MEDS: *HR* Heparin 5,000 UNIT/ML VIAL SQ SCH (23:56)
[2019-05-17 06:17] LABS: Hematocrit 27.6 % (37.5-50.1); Mean Corpuscular HGB Conc 32.6 g/dL (31.6-35.5); Mean Corpuscular Hemoglobin 28.7 pg (28.0-33.3); Mean Corpuscular Volume 87.9 fL (83.0-100.0); Mean Platelet Volume 10.5 fL (9.4-12.4); Platelet Count 409 K/mcL (140-400); Red Blood Count 3.14 M/mcL (4.19-5.50); Red Cell Distribution Width 17.7 % (11.5-14.5); White Blood Count 17.6 K/mcL (4.3-11.1)
[2019-05-17 07:02] LABS: Lymphocytes # 0.7 K/mcL (0.6-4.6); Monocytes # 0.7 K/mcL (0.0-1.3); Neutrophils # 16.2 K/mcL (1.6-8.9); Platelet Estimate Normal (Normal)
[2019-05-17 07:29] LABS: Calcium 8.5 mg/dL (8.6-10.3); Potassium 3.8 mEq/L (3.5-5.1)
[2019-05-17] MEDS ORDERED: Furosemide 40 MG/4 ML VIAL IVP SCH (09:00)
[2019-05-17] MEDS: levoFLOXacin 750 MG/150 ML 750 MG/150 ML BAG IVPB SCH (10:46)
[2019-05-17] MEDS: Folic Acid 1 MG TABLET PO SCH (10:51)
[2019-05-17] MEDS: Gabapentin 400 MG CAPSULE PO SCH ×4 (10:51→20:25)
[2019-05-17] MEDS: amLODIPine 5 MG TABLET PO SCH (10:51)
[2019-05-17] MEDS: Metoprolol XL (24 HR) Succ 50 MG TAB.ER.24H PO SCH (10:52)
[2019-05-17] MEDS: Loratadine 10 MG TABLET PO SCH (10:52)
[2019-05-17] MEDS: Multivit/Ca/Min/Fe/FA 1 TAB TABLET PO SCH (10:52)
[2019-05-17] MEDS: Aspirin Enteric Coated 81 MG Tablet PO SCH (10:52)
[2019-05-17] MEDS: *HR* LORazepam 0.5 MG TABLET PO SCH ×2 (10:52→20:25)
[2019-05-17] MEDS: Magnesium Oxide 400 MG TABLET PO SCH (10:52)
[2019-05-17] MEDS: *HR* Heparin 5,000 UNIT/ML VIAL SQ SCH ×3 (10:53→23:38)
[2019-05-17] MEDS: MethylPREDNISolone 40 MG/ML VIAL IVP SCH ×3 (10:53→23:37)
[2019-05-17] MEDS: Isosorbide MONOnitrate (24 HR) 30 MG TAB.ER.24H PO SCH (10:53)
[2019-05-17] MEDS: FLUoxetine 20 MG CAPSULE PO SCH (10:53)
[2019-05-17] MEDS: Furosemide 40 MG/4 ML VIAL IVP SCH ×2 (10:53→16:02)
[2019-05-17] MEDS: Insulin LISPRO 300 UNITS/3 ML VIAL SQ SCH ×3 (11:14→16:04)
[2019-05-17] MEDS ORDERED: Ipratropium/Albuterol Neb 3 ML IH PRN (15:34)
[2019-05-17] MEDS ORDERED: levoFLOXacin 750 MG/150 ML 750 MG/150 ML BAG IVPB SCH (17:00)
[2019-05-18 05:43] LABS: Hematocrit 25.2 % (37.5-50.1); Hemoglobin 8.5 g/dL (12.9-16.9); Mean Corpuscular HGB Conc 33.7 g/dL (31.6-35.5); Mean Corpuscular Hemoglobin 28.6 pg (28.0-33.3); Mean Corpuscular Volume 84.8 fL (83.0-100.0); Mean Platelet Volume 10.3 fL (9.4-12.4); Platelet Count 373 K/mcL (140-400); Red Blood Count 2.97 M/mcL (4.19-5.50); Red Cell Distribution Width 17.3 % (11.5-14.5); White Blood Count 17.6 K/mcL (4.3-11.1)
[2019-05-18 06:03] LABS: Potassium 3.6 mEq/L (3.5-5.1)
[2019-05-18 06:06] LABS: Lymphocytes # 1.1 K/mcL (0.6-4.6); Monocytes # 1.1 K/mcL (0.0-1.3); Neutrophils # 15.1 K/mcL (1.6-8.9)
[2019-05-18] MEDS: *HR* Heparin 5,000 UNIT/ML VIAL SQ SCH (07:45)
[2019-05-18] MEDS: Insulin LISPRO 300 UNITS/3 ML VIAL SQ SCH ×2 (07:45→11:22)
[2019-05-18] MEDS: Furosemide 40 MG/4 ML VIAL IVP SCH (07:45)
[2019-05-18] MEDS: MethylPREDNISolone 40 MG/ML VIAL IVP SCH (07:45)
[2019-05-18] MEDS: Gabapentin 400 MG CAPSULE PO SCH (07:46)
[2019-05-18] MEDS: Metoprolol XL (24 HR) Succ 50 MG TAB.ER.24H PO SCH (07:46)
[2019-05-18] MEDS: Multivit/Ca/Min/Fe/FA 1 TAB TABLET PO SCH (07:46)
[2019-05-18] MEDS: *HR* LORazepam 0.5 MG TABLET PO SCH (07:46)
[2019-05-18] MEDS: Aspirin Enteric Coated 81 MG Tablet PO SCH (07:46)
[2019-05-18] MEDS: Loratadine 10 MG TABLET PO SCH (07:46)
[2019-05-18] MEDS: Magnesium Oxide 400 MG TABLET PO SCH (07:46)
[2019-05-18] MEDS: Folic Acid 1 MG TABLET PO SCH (07:46)
[2019-05-18] MEDS: FLUoxetine 20 MG CAPSULE PO SCH (07:46)
[2019-05-18] MEDS: levoFLOXacin 750 MG/150 ML 750 MG/150 ML BAG IVPB SCH (07:47)
[2019-05-18] MEDS: amLODIPine 5 MG TABLET PO SCH (07:47)
[2019-05-18] MEDS: Isosorbide MONOnitrate (24 HR) 30 MG TAB.ER.24H PO SCH (07:47)
[2019-05-18 10:44] VITALS: BP 115/69
[2019-05-18] MEDS ORDERED: OMALIZUMAB 150 MG VIAL SQ ONE (11:21)
[2019-05-18] MEDS ORDERED: FLU Vac QV 19-20 (6Month+)/PF 0.5 ML SYRINGE IM ONE (11:26)
== END 2019-05-18 12:35 | disposition home health service (06) | DRG 190 ==
LOC: SUATTDRO → 2ANU 15:07 → EMEROOARM 15:07 → INTOOBSV 18:13 → OBSVTOIN 18:13 → 2ANU 18:44
PROVIDERS: ADMIT Internal Medicine; ATTEND Internal Medicine

== ENCOUNTER 2019-05-21 07:36 | Inpatient (IN) ==
[2019-05-21] MEDS ORDERED: methylPREDNISolone 125 MG/2 ML VIAL IVP ONE (07:37)
[2019-05-21] MEDS ORDERED: Ipratropium/Albuterol Neb 3 ML IH ONE (07:37)
[2019-05-21 07:58] LABS: ABG Base Excess 4 mEq/L (-2 to 3); ABG HCO3 28 mEq/L (21-27); ABG Oxygen Saturation 93 % (95-98); ABG PCO2 40 mmHg (35-45); ABG PH 7.45 pH Units (7.32-7.45); ABG PO2 63 mmHg (85-104); ABG TCO2 29 mEq/L (20-26)
[2019-05-21 08:44] LABS: Basophils # 0.1 K/mcL (0.0-0.2); Basophils % 0.3 %; Eosinophils # 0.5 K/mcL (0.0-0.6); Eosinophils % 2.5 %; Hematocrit 32.2 % (37.5-50.1); Immature Granulocytes % 4.3 % (0-4); Lymphocytes # 1.5 K/mcL (0.6-4.6); Lymphocytes % 7.7 %; Mean Corpuscular HGB Conc 32.3 g/dL (31.6-35.5); Mean Corpuscular Volume 86.6 fL (83.0-100.0); Mean Platelet Volume 10.3 fL (9.4-12.4); Monocytes % 5.3 %; Neutrophils # 15.7 K/mcL (1.6-8.9); Platelet Count 384 K/mcL (140-400); Red Blood Count 3.72 M/mcL (4.19-5.50); Red Cell Distribution Width 18.1 % (11.5-14.5); Segmented Neutrophils % 79.9 %; White Blood Count 19.6 K/mcL (4.3-11.1)
[2019-05-21] MEDS ORDERED: Piperacillin/Tazobactam 3.375 GM in 0.9 % Sodium Chloride Mini Bag 100 ML IVPB ONE (08:49)
[2019-05-21] MEDS ORDERED: Furosemide 40 MG/4 ML VIAL IVP ONE (08:49)
[2019-05-21] MEDS ORDERED: levoFLOXacin 750 MG/150 ML 750 MG/150 ML BAG IVPB ONE (08:49)
[2019-05-21 08:54] LABS: INR 1.3; Prothrombin Time 14.9 Seconds (9.4-12.1)
[2019-05-21 08:57] LABS: Activated Partial Thrombo Time 30.5 Seconds (26.0-36.0)
[2019-05-21 09:00] LABS: Alanine Aminotransferase 15 Units/L (7-52); Albumin 3.2 g/dL (3.5-5.7); Albumin/Globulin Ratio 0.7 (1.1-2.2); Alkaline Phosphatase 62 Units/L (34-104); Aspartate Amino Transferase 16 Units/L (13-39); BUN/Creatinine Ratio 24 (6-26); Bilirubin,Direct 0.2 mg/dL (0.0-0.2); Bilirubin,Indirect 0.2 mg/dL (0.0-1.2); Bilirubin,Total 0.4 mg/dL (0.3-1.0); Blood Urea Nitrogen 32 mg/dL (8-23); Calcium 8.9 mg/dL (8.6-10.3); Carbon Dioxide 26 mEq/L (23-29); Chloride 97 mEq/L (98-107); Globulin 4.5 g/dL (2.4-3.5); Glucose 87 mg/dL (70-105); Osmolality,Calculated 286 (280-300); Potassium 2.9 mEq/L (3.5-5.1); Sodium 135 mEq/L (136-145); Total Protein 7.7 g/dL (6.4-8.9); Troponin I < 0.03 ng/mL (< 0.04); eGFR For African Americans > 60 (> 60); eGFR For Non-African Americans 54 (> 60)
[2019-05-21] MEDS ORDERED: Potassium Chloride Elixir 20 MEQ/15 ML UDC PO ONE (09:16)
[2019-05-21 09:32] LABS: Hemoglobin 10.4 g/dL (12.9-16.9)
[2019-05-21] MEDS ORDERED: Acetaminophen 325 MG TABLET PO PRN (10:47)
[2019-05-21 11:38] LABS: Magnesium 1.7 mg/dL (1.6-2.6)
[2019-05-21] MEDS ORDERED: Vancomycin 1,750 MG in 0.9 % Sodium Chloride 250 ML IVPB SCH (14:00)
[2019-05-21] MEDS ORDERED: Piperacillin/Tazobactam 3.375 GM in 0.9 % Sodium Chloride Mini Bag 100 ML IVPB SCH (16:00)
[2019-05-21] MEDS: Ipratropium/Albuterol Neb 3 ML IH SCH ×3 (16:16→23:09)
[2019-05-21] MEDS: MethylPREDNISolone 40 MG/ML VIAL IVP SCH ×2 (16:21→23:04)
[2019-05-21] MEDS: Gabapentin 300 MG CAPSULE PO SCH ×2 (17:25→19:59)
[2019-05-21] MEDS: Piperacillin/Tazobactam 3.375 GM in 0.9 % Sodium Chloride Mini Bag 100 ML IVPB SCH (19:09)
[2019-05-21] MEDS: *HR* LORazepam 0.5 MG TABLET PO SCH (19:59)
[2019-05-21] MEDS: Insulin DETEMIR 100 UNIT/ML X5UNITS SQ SCH (19:59)
[2019-05-22] MEDS: Piperacillin/Tazobactam 3.375 GM in 0.9 % Sodium Chloride Mini Bag 100 ML IVPB SCH ×3 (03:17→17:19)
[2019-05-22] MEDS: Ipratropium/Albuterol Neb 3 ML IH SCH ×6 (03:50→23:44)
[2019-05-22 05:54] LABS: Hematocrit 28.6 % (37.5-50.1); Mean Corpuscular HGB Conc 31.5 g/dL (31.6-35.5); Mean Corpuscular Hemoglobin 27.4 pg (28.0-33.3); Mean Corpuscular Volume 87.2 fL (83.0-100.0); Platelet Count 391 K/mcL (140-400); Red Blood Count 3.28 M/mcL (4.19-5.50); Red Cell Distribution Width 18.6 % (11.5-14.5); White Blood Count 18.1 K/mcL (4.3-11.1)
[2019-05-22] MEDS: *HR* Enoxaparin 40 MG/0.4 ML SYRINGE SQ SCH (06:13)
[2019-05-22 06:18] LABS: Calcium 8.4 mg/dL (8.6-10.3); Potassium 3.9 mEq/L (3.5-5.1)
[2019-05-22] MEDS: Budesonide/Formoterol 160/4.5 1 PUFF INH IH SCH ×2 (07:20→19:26)
[2019-05-22] MEDS: levoFLOXacin 750 MG TABLET PO SCH (08:38)
[2019-05-22] MEDS: Gabapentin 300 MG CAPSULE PO SCH ×4 (08:38→20:21)
[2019-05-22] MEDS: Aspirin Enteric Coated 81 MG Tablet PO SCH (08:38)
[2019-05-22] MEDS: FLUoxetine 20 MG CAPSULE PO SCH (08:38)
[2019-05-22] MEDS: Metoprolol XL (24 HR) Succ 50 MG TAB.ER.24H PO SCH (08:38)
[2019-05-22] MEDS: Loratadine 10 MG TABLET PO SCH (08:38)
[2019-05-22] MEDS: *HR* LORazepam 0.5 MG TABLET PO SCH ×2 (08:39→20:21)
[2019-05-22] MEDS: Isosorbide MONOnitrate (24 HR) 30 MG TAB.ER.24H PO SCH (08:39)
[2019-05-22] MEDS: amLODIPine 5 MG TABLET PO SCH (08:39)
[2019-05-22] MEDS ORDERED: Empagliflozin [Jardiance] 10 MG PO SCH (09:00)
[2019-05-22] MEDS: Insulin DETEMIR 100 UNIT/ML X5UNITS SQ SCH ×2 (09:41→20:21)
[2019-05-22] MEDS: MethylPREDNISolone 40 MG/ML VIAL IVP SCH ×2 (09:41→17:20)
[2019-05-22] MEDS ORDERED: D5% in Water 1,000 ML IVC PRN (11:16)
[2019-05-22] MEDS ORDERED: *HR* Dextrose 50 % in Water (Syg) 50 ML SYRINGE IVP PRN (11:16)
[2019-05-22] MEDS ORDERED: Dextrose Gel 15 GM/37.5 ML TUBE PO PRN ×2 (11:16)
[2019-05-22] MEDS: Insulin LISPRO 300 UNITS/3 ML VIAL SQ SCH ×3 (12:22→20:20)
[2019-05-23] MEDS: MethylPREDNISolone 40 MG/ML VIAL IVP SCH ×2 (00:18→08:28)
[2019-05-23] MEDS: Ipratropium/Albuterol Neb 3 ML IH SCH ×5 (03:51→20:19)
[2019-05-23] MEDS: Piperacillin/Tazobactam 3.375 GM in 0.9 % Sodium Chloride Mini Bag 100 ML IVPB SCH ×2 (03:56→11:37)
[2019-05-23] MEDS: *HR* Enoxaparin 40 MG/0.4 ML SYRINGE SQ SCH (05:44)
[2019-05-23] MEDS: Budesonide/Formoterol 160/4.5 1 PUFF INH IH SCH ×2 (07:48→20:19)
[2019-05-23] MEDS: FLUoxetine 20 MG CAPSULE PO SCH (08:29)
[2019-05-23] MEDS: Aspirin Enteric Coated 81 MG Tablet PO SCH (08:29)
[2019-05-23] MEDS: Loratadine 10 MG TABLET PO SCH (08:29)
[2019-05-23] MEDS: levoFLOXacin 750 MG TABLET PO SCH (08:29)
[2019-05-23] MEDS: Gabapentin 300 MG CAPSULE PO SCH ×4 (08:29→20:37)
[2019-05-23] MEDS: *HR* LORazepam 0.5 MG TABLET PO SCH ×2 (08:30→20:37)
[2019-05-23] MEDS: Isosorbide MONOnitrate (24 HR) 30 MG TAB.ER.24H PO SCH (08:30)
[2019-05-23] MEDS: amLODIPine 5 MG TABLET PO SCH (08:30)
[2019-05-23] MEDS: Metoprolol XL (24 HR) Succ 50 MG TAB.ER.24H PO SCH (08:30)
[2019-05-23] MEDS: Insulin LISPRO 300 UNITS/3 ML VIAL SQ SCH ×4 (08:34→20:36)
[2019-05-23] MEDS: Insulin DETEMIR 100 UNIT/ML X5UNITS SQ SCH ×2 (08:35→20:36)
[2019-05-23] MEDS ORDERED: Aminoglycoside Consult 1 EACH MC ONE (09:05)
[2019-05-23 09:49] LABS: Hematocrit 25.4 % (37.5-50.1); Hemoglobin 8.5 g/dL (12.9-16.9); Mean Corpuscular HGB Conc 33.5 g/dL (31.6-35.5); Mean Corpuscular Hemoglobin 28.5 pg (28.0-33.3); Mean Corpuscular Volume 85.2 fL (83.0-100.0); Mean Platelet Volume 10.4 fL (9.4-12.4); Platelet Count 332 K/mcL (140-400); Red Blood Count 2.98 M/mcL (4.19-5.50); Red Cell Distribution Width 18.4 % (11.5-14.5); White Blood Count 22.1 K/mcL (4.3-11.1)
[2019-05-23 10:14] LABS: Calcium 7.7 mg/dL (8.6-10.3); Potassium 3.7 mEq/L (3.5-5.1)
[2019-05-23] MEDS ORDERED: Furosemide 20 MG/2 ML VIAL IVP ONE (13:51)
[2019-05-23 15:35] LABS: ABG Base Excess 1 mEq/L (-2 to 3); ABG HCO3 25 mEq/L (21-27); ABG Oxygen Saturation 89 % (95-98); ABG PCO2 37 mmHg (35-45); ABG PH 7.45 pH Units (7.32-7.45); ABG PO2 54 mmHg (85-104); ABG TCO2 27 mEq/L (20-26); Blood Gas Pressure Support 12 cm H2O
[2019-05-23] MEDS ORDERED: Nitroglycerin 0.4 MG TAB.SUBL SL PRN (23:44)
[2019-05-24] MEDS: Ipratropium/Albuterol Neb 3 ML IH SCH ×7 (00:02→23:13)
[2019-05-24] MEDS ORDERED: Furosemide 20 MG/2 ML VIAL IVP ONE (01:58)
[2019-05-24] MEDS: *HR* Enoxaparin 40 MG/0.4 ML SYRINGE SQ SCH (05:57)
[2019-05-24 06:32] LABS: Hematocrit 28.1 % (37.5-50.1); Hemoglobin 9.4 g/dL (12.9-16.9); Mean Corpuscular HGB Conc 33.5 g/dL (31.6-35.5); Mean Corpuscular Hemoglobin 28.1 pg (28.0-33.3); Mean Corpuscular Volume 84.1 fL (83.0-100.0); Mean Platelet Volume 10.6 fL (9.4-12.4); Platelet Count 351 K/mcL (140-400); Red Blood Count 3.34 M/mcL (4.19-5.50); Red Cell Distribution Width 18.2 % (11.5-14.5); White Blood Count 24.1 K/mcL (4.3-11.1)
[2019-05-24 06:48] LABS: Calcium 8.2 mg/dL (8.6-10.3); Potassium 3.7 mEq/L (3.5-5.1)
[2019-05-24] MEDS: Budesonide/Formoterol 160/4.5 1 PUFF INH IH SCH ×2 (07:24→20:12)
[2019-05-24] MEDS ORDERED: Furosemide 40 MG/4 ML VIAL ONE (07:44)
[2019-05-24] MEDS: Insulin LISPRO 300 UNITS/3 ML VIAL SQ SCH ×4 (07:49→20:37)
[2019-05-24] MEDS: *HR* LORazepam 0.5 MG TABLET PO SCH ×2 (07:50→20:33)
[2019-05-24] MEDS: Isosorbide MONOnitrate (24 HR) 30 MG TAB.ER.24H PO SCH (07:50)
[2019-05-24] MEDS: Aspirin Enteric Coated 81 MG Tablet PO SCH (07:50)
[2019-05-24] MEDS: Gabapentin 300 MG CAPSULE PO SCH ×4 (07:50→20:33)
[2019-05-24] MEDS: amLODIPine 5 MG TABLET PO SCH (07:50)
[2019-05-24] MEDS: Loratadine 10 MG TABLET PO SCH (07:50)
[2019-05-24] MEDS: FLUoxetine 20 MG CAPSULE PO SCH (07:50)
[2019-05-24] MEDS: Metoprolol XL (24 HR) Succ 50 MG TAB.ER.24H PO SCH (07:50)
[2019-05-24] MEDS: Insulin DETEMIR 100 UNIT/ML X5UNITS SQ SCH ×2 (07:52→20:38)
[2019-05-24 07:53] LABS: ABG Base Excess 0 mEq/L (-2 to 3); ABG HCO3 24 mEq/L (21-27); ABG Oxygen Saturation 92 % (95-98); ABG PCO2 33 mmHg (35-45); ABG PH 7.46 pH Units (7.32-7.45); ABG PO2 58 mmHg (85-104); ABG TCO2 25 mEq/L (20-26)
[2019-05-24] MEDS ORDERED: Furosemide 40 MG/4 ML VIAL IVP SCH (09:00)
[2019-05-24] MEDS ORDERED: Piperacillin/Tazobactam 3.375 GM in 0.9 % Sodium Chloride Mini Bag 100 ML IVPB SCH (10:25)
[2019-05-24] MEDS: Ondansetron 4 MG/2 ML VIAL IVP PRN (10:41)
[2019-05-24 14:07] LABS: Calcium 8.1 mg/dL (8.6-10.3); Potassium 3.3 mEq/L (3.5-5.1)
[2019-05-24] MEDS: Furosemide 240 MG in 0.9 % Sodium Chloride 96 ML IVC SCH (17:08)
[2019-05-24] MEDS: Cefepime HCl 2,000 MG in Water for inj. (sterile) 20 ML IVP SCH (17:08)
[2019-05-24] MEDS ORDERED: Calcium Gluconate 1gm/50mL 1 GM/50 ML BAG IVPB PRN (17:22)
[2019-05-24] MEDS ORDERED: Potassium Phosphate 44 MEQ in 0.9 % Sodium Chloride 250 ML IVPB PRN (17:22)
[2019-05-25] MEDS: Ondansetron 4 MG/2 ML VIAL IVP PRN (01:08)
[2019-05-25] MEDS: Ipratropium/Albuterol Neb 3 ML IH SCH ×7 (03:49→23:26)
[2019-05-25] MEDS: Cefepime HCl 2,000 MG in Water for inj. (sterile) 20 ML IVP SCH ×2 (04:03→16:36)
[2019-05-25 04:23] LABS: Hematocrit 28.9 % (37.5-50.1); Hemoglobin 9.7 g/dL (12.9-16.9); Mean Corpuscular HGB Conc 33.6 g/dL (31.6-35.5); Mean Corpuscular Hemoglobin 28.5 pg (28.0-33.3); Mean Platelet Volume 10.7 fL (9.4-12.4); Platelet Count 300 K/mcL (140-400); Red Cell Distribution Width 18.1 % (11.5-14.5); White Blood Count 23.5 K/mcL (4.3-11.1)
[2019-05-25 04:25] LABS: VBG Ionized Calcium 1.08 mmol/L (1.15-1.35)
[2019-05-25 04:42] LABS: Magnesium 1.6 mg/dL (1.6-2.6)
[2019-05-25 04:43] LABS: Calcium 8.1 mg/dL (8.6-10.3); Potassium 3.3 mEq/L (3.5-5.1)
[2019-05-25] MEDS: *HR* Enoxaparin 40 MG/0.4 ML SYRINGE SQ SCH (06:12)
[2019-05-25] MEDS: Budesonide/Formoterol 160/4.5 1 PUFF INH IH SCH ×2 (07:31→19:52)
[2019-05-25] MEDS ORDERED: *HR* Succinylcholine 200 MG/10 ML VIAL IVP ONE (09:44)
[2019-05-25] MEDS ORDERED: *HR* Etomidate 40 MG/20 ML VIAL IVP ONE (09:44)
[2019-05-25] MEDS ORDERED: Dexmedetomidine HCl 400 MCG/100 ML MLS IVC SCH (09:45)
[2019-05-25] MEDS ORDERED: FentaNYL (PF) 1,000 MCG in 0.9 % Sodium Chloride 80 ML IVC SCH ×2 (09:45→11:52)
[2019-05-25] MEDS ORDERED: Artificial Tears SOLN 15 ML BOTTLE BOTH EYES PRN ×2 (09:47→11:52)
[2019-05-25] MEDS ORDERED: *HR* Rocuronium Bromide 100 MG/10 ML VIAL IVC ONE (09:54)
[2019-05-25] MEDS ORDERED: *HR* Midazolam HCl 5 MG/5 ML VIAL IVP ONE ×2 (09:54→10:49)
[2019-05-25] MEDS ORDERED: *HR* Propofol 200 MG/20 ML VIAL IVP ONE (09:54)
[2019-05-25] MEDS ORDERED: Lidocaine 2% Syringe 100 MG/5 ML IV ONE (09:54)
[2019-05-25] MEDS ORDERED: *HR* Midazolam HCl 2 MG/2 ML VIAL IV ONE (09:54)
[2019-05-25] MEDS ORDERED: *HR* Rocuronium Bromide 50 MG/5 ML VIAL IVP ONE (10:49)
[2019-05-25 10:53] LABS: ABG Base Excess -4 mEq/L (-2 to 3); ABG HCO3 24 mEq/L (21-27); ABG Oxygen Saturation 97 % (95-98); ABG PCO2 56 mmHg (35-45); ABG PH 7.25 pH Units (7.32-7.45); ABG PO2 101 mmHg (85-104); ABG TCO2 26 mEq/L (20-26); Blood Gas Modality ASSIST CONTROL; Blood Gas VT 400 cc
[2019-05-25] MEDS: *HR* LORazepam 0.5 MG TABLET PO SCH (11:12)
[2019-05-25] MEDS: Insulin DETEMIR 100 UNIT/ML X5UNITS SQ SCH ×2 (11:12→20:26)
[2019-05-25] MEDS: Aspirin Enteric Coated 81 MG Tablet PO SCH (11:12)
[2019-05-25] MEDS: Isosorbide MONOnitrate (24 HR) 30 MG TAB.ER.24H PO SCH (11:12)
[2019-05-25] MEDS: Insulin LISPRO 300 UNITS/3 ML VIAL SQ SCH ×3 (11:12→20:27)
[2019-05-25] MEDS: Loratadine 10 MG TABLET PO SCH (11:12)
[2019-05-25] MEDS: amLODIPine 5 MG TABLET PO SCH (11:13)
[2019-05-25] MEDS: FLUoxetine 20 MG CAPSULE PO SCH (11:13)
[2019-05-25] MEDS: Metoprolol XL (24 HR) Succ 50 MG TAB.ER.24H PO SCH (11:13)
[2019-05-25] MEDS: Gabapentin 300 MG CAPSULE PO SCH ×3 (11:13→20:26)
[2019-05-25] MEDS ORDERED: *HR* LORazepam 0.5 MG TABLET PO PRN (11:52)
[2019-05-25] MEDS ORDERED: D5% in Water 1,000 ML IVC PRN (11:52)
[2019-05-25] MEDS ORDERED: Ondansetron 4 MG/2 ML VIAL IVP PRN (11:52)
[2019-05-25] MEDS ORDERED: *HR* Dextrose 50 % in Water (Syg) 50 ML SYRINGE IVP PRN (11:52)
[2019-05-25] MEDS ORDERED: Dextrose Gel 15 GM/37.5 ML TUBE PO PRN ×2 (11:52)
[2019-05-25] MEDS ORDERED: Nitroglycerin 0.4 MG TAB.SUBL SL PRN (11:52)
[2019-05-25] MEDS ORDERED: Acetaminophen 325 MG TABLET PO PRN (11:52)
[2019-05-25] MEDS ORDERED: Artificial Tears SOLN 15 ML BOTTLE BOTH EYES SCH (12:00)
[2019-05-25] MEDS: Artificial Tears SOLN 15 ML BOTTLE BOTH EYES SCH ×3 (13:00→20:23)
[2019-05-25] MEDS: Dexmedetomidine HCl 400 MCG/100 ML MLS IVC SCH ×3 (13:01→22:34)
[2019-05-25 14:47] LABS: ABG Base Excess -4 mEq/L (-2 to 3); ABG HCO3 27 mEq/L (21-27); ABG Oxygen Saturation 80 % (95-98); ABG PCO2 83 mmHg (35-45); ABG PH 7.12 pH Units (7.32-7.45); ABG PO2 60 mmHg (85-104); ABG TCO2 30 mEq/L (20-26); Blood Gas Modality ASSIST CONTROL; Blood Gas VT 400 cc
[2019-05-25 15:13] LABS: Bilirubin,Urine Negative (Negative); Blood,Urine Moderate (Negative); Clarity,Urine Cloudy (Clear); Glucose,Urine (UA) Normal (Normal); Ketones,Urine Negative (Negative); Leukocyte Esterase,Urine Moderate (Negative); Nitrite,Urine Negative (Negative); Protein,Urine 100 mg/dL (Neg-Trace); Specific Gravity,Urine 1.013 (1.010-1.025); Urobilinogen,Urine Normal (Normal)
[2019-05-25 15:15] LABS: Bacteria,Urine None Seen per hpf (None-Few); Squamous Epithelial Cell,Urine Moderate per lpf (None-Few); WBC,Urine TNTC per hpf (0-3)
[2019-05-25 15:26] LABS: Color,Urine Yellow (Yellow)
[2019-05-25 15:35] LABS: Hyaline Casts,Urine Few per lpf (None-Few)
[2019-05-25 15:36] LABS: Yeast,Urine Many per hpf (None Seen)
[2019-05-25 15:56] LABS: Adenovirus Not Detected (Not Detect); Bordetella Pertussis Not Detected (Not Detect); Chlamydophila pneumoniae Not Detected (Not Detect); Coronavirus 229E Not Detected (Not Detect); Coronavirus HKU1 Not Detected (Not Detect); Coronavirus NL63 Not Detected (Not Detect); Coronavirus OC43 Not Detected (Not Detect); Human Metapneumovirus Not Detected (Not Detect); Human Rhinovirus/Enterovirus Not Detected (Not Detect); Influenza A Subtype 2009 H1 Not Detected (Not Detect); Influenza A Untypeable Not Detected (Not Detect); Influenza B Not Detected (Not Detect); Mycoplasma pneumoniae Not Detected (Not Detect); Parainfluenza Virus 1 Not Detected (Not Detect); Parainfluenza Virus 2 Not Detected (Not Detect); Parainfluenza Virus 3 Not Detected (Not Detect); Parainfluenza Virus 4 Not Detected (Not Detect); Respiratory Syncytial Virus Not Detected (Not Detect)
[2019-05-25] MEDS: Furosemide 240 MG in 0.9 % Sodium Chloride 96 ML IVC SCH ×2 (16:35→16:37)
[2019-05-25] MEDS: Chlorhexidine Rinse 15 ML MOUTHWASH MM SCH (20:26)
[2019-05-25 20:59] LABS: ABG Base Excess -1 mEq/L (-2 to 3); ABG HCO3 27 mEq/L (21-27); ABG Oxygen Saturation 95 % (95-98); ABG PCO2 65 mmHg (35-45); ABG PH 7.23 pH Units (7.32-7.45); ABG PO2 89 mmHg (85-104); ABG TCO2 29 mEq/L (20-26); Blood Gas Modality AF; Blood Gas VT 400 cc
[2019-05-25] MEDS ORDERED: Chlorhexidine Rinse 15 ML MOUTHWASH MM SCH (21:00)
[2019-05-26] MEDS: Artificial Tears SOLN 15 ML BOTTLE BOTH EYES SCH ×4 (00:14→21:42)
[2019-05-26] MEDS: Ipratropium/Albuterol Neb 3 ML IH SCH ×5 (03:24→23:50)
[2019-05-26] MEDS: Cefepime HCl 2,000 MG in Water for inj. (sterile) 20 ML IVP SCH ×2 (04:19→21:49)
[2019-05-26] MEDS: Dexmedetomidine HCl 400 MCG/100 ML MLS IVC SCH ×3 (04:20→23:00)
[2019-05-26 05:14] LABS: Calcium 7.9 mg/dL (8.6-10.3); Potassium 3.6 mEq/L (3.5-5.1)
[2019-05-26 05:20] LABS: ABG Base Excess -2 mEq/L (-2 to 3); ABG HCO3 25 mEq/L (21-27); ABG Oxygen Saturation 95 % (95-98); ABG PCO2 54 mmHg (35-45); ABG PH 7.27 pH Units (7.32-7.45); ABG PO2 87 mmHg (85-104); ABG TCO2 27 mEq/L (20-26); Blood Gas Modality AF; Blood Gas VT 400 cc
[2019-05-26] MEDS: *HR* Enoxaparin 40 MG/0.4 ML SYRINGE SQ SCH (05:32)
[2019-05-26 05:39] LABS: Basophils % 0.1 %; Eosinophils # 1.1 K/mcL (0.0-0.6); Hemoglobin 8.8 g/dL (12.9-16.9); Immature Granulocytes % 0.9 % (0-4); Lymphocytes # 0.3 K/mcL (0.6-4.6); Lymphocytes % 1.3 %; Mean Corpuscular HGB Conc 31.4 g/dL (31.6-35.5); Mean Corpuscular Hemoglobin 28.4 pg (28.0-33.3); Mean Corpuscular Volume 90.3 fL (83.0-100.0); Mean Platelet Volume 11.1 fL (9.4-12.4); Monocytes # 0.5 K/mcL (0.0-1.3); Monocytes % 2.2 %; Neutrophils # 20.2 K/mcL (1.6-8.9); Platelet Count 206 K/mcL (140-400); Red Cell Distribution Width 17.8 % (11.5-14.5); Segmented Neutrophils % 90.5 %; White Blood Count 22.4 K/mcL (4.3-11.1)
[2019-05-26] MEDS: Budesonide/Formoterol 160/4.5 1 PUFF INH IH SCH ×2 (07:24→19:45)
[2019-05-26] MEDS ORDERED: Pantoprazole 40 MG VIAL IVP SCH (09:00)
[2019-05-26 18:00] LABS: ABG Base Excess -2 mEq/L (-2 to 3); ABG HCO3 26 mEq/L (21-27); ABG Oxygen Saturation 93 % (95-98); ABG PCO2 58 mmHg (35-45); ABG PH 7.26 pH Units (7.32-7.45); ABG PO2 80 mmHg (85-104); ABG TCO2 28 mEq/L (20-26); Blood Gas VT 450 cc
[2019-05-26] MEDS: Insulin LISPRO 300 UNITS/3 ML VIAL SQ SCH ×3 (21:00→21:41)
[2019-05-26] MEDS: Loratadine 10 MG TABLET PO SCH (21:46)
[2019-05-26] MEDS: Aspirin Enteric Coated 81 MG Tablet PO SCH (21:46)
[2019-05-26] MEDS: Chlorhexidine Rinse 15 ML MOUTHWASH MM SCH ×2 (21:46→21:55)
[2019-05-26] MEDS: Insulin DETEMIR 100 UNIT/ML X5UNITS SQ SCH ×2 (21:47→21:55)
[2019-05-26] MEDS: Isosorbide MONOnitrate (24 HR) 30 MG TAB.ER.24H PO SCH (21:47)
[2019-05-26] MEDS: Gabapentin 300 MG CAPSULE PO SCH ×2 (21:47→21:55)
[2019-05-26] MEDS: amLODIPine 5 MG TABLET PO SCH (21:47)
[2019-05-26] MEDS: FLUoxetine 20 MG CAPSULE PO SCH (21:48)
[2019-05-26] MEDS: Pantoprazole 40 MG VIAL IVP SCH (21:48)
[2019-05-26] MEDS: Furosemide 240 MG in 0.9 % Sodium Chloride 96 ML IVC SCH (21:49)
[2019-05-26] MEDS: Metoprolol XL (24 HR) Succ 50 MG TAB.ER.24H PO SCH (21:49)
[2019-05-27] MEDS: Artificial Tears SOLN 15 ML BOTTLE BOTH EYES SCH ×7 (00:49→23:51)
[2019-05-27] MEDS: Dexmedetomidine HCl 400 MCG/100 ML MLS IVC SCH ×6 (03:06→22:17)
[2019-05-27] MEDS: Ipratropium/Albuterol Neb 3 ML IH SCH ×6 (03:26→23:11)
[2019-05-27 03:35] LABS: Source of Body Fluid BAL RLL
[2019-05-27 04:07] LABS: Basophils % 0.1 %; Eosinophils # 1.1 K/mcL (0.0-0.6); Eosinophils % 5.7 %; Hematocrit 24.7 % (37.5-50.1); Immature Granulocytes % 1.3 % (0-4); Lymphocytes # 0.6 K/mcL (0.6-4.6); Lymphocytes % 3.1 %; Mean Corpuscular HGB Conc 32.4 g/dL (31.6-35.5); Mean Corpuscular Hemoglobin 28.5 pg (28.0-33.3); Mean Corpuscular Volume 87.9 fL (83.0-100.0); Mean Platelet Volume 11.2 fL (9.4-12.4); Monocytes # 0.6 K/mcL (0.0-1.3); Neutrophils # 16.7 K/mcL (1.6-8.9); Platelet Count 164 K/mcL (140-400); Red Blood Count 2.81 M/mcL (4.19-5.50); Red Cell Distribution Width 18.1 % (11.5-14.5); Segmented Neutrophils % 86.8 %; White Blood Count 19.3 K/mcL (4.3-11.1)
[2019-05-27 04:11] LABS: Appearance of Body Fluid Slightly Hazy (Clear); Volume of Body Fluid 10 mL
[2019-05-27 04:23] LABS: ABG Base Excess -1 mEq/L (-2 to 3); ABG HCO3 27 mEq/L (21-27); ABG Oxygen Saturation 91 % (95-98); ABG PCO2 66 mmHg (35-45); ABG PH 7.22 pH Units (7.32-7.45); ABG PO2 75 mmHg (85-104); ABG TCO2 29 mEq/L (20-26); Blood Gas Modality AF; Blood Gas VT 450 cc
[2019-05-27 04:26] LABS: Calcium 7.7 mg/dL (8.6-10.3); Potassium 3.7 mEq/L (3.5-5.1)
[2019-05-27] MEDS: Cefepime HCl 2,000 MG in Water for inj. (sterile) 20 ML IVP SCH (04:47)
[2019-05-27] MEDS: *HR* Enoxaparin 40 MG/0.4 ML SYRINGE SQ SCH (05:10)
[2019-05-27] MEDS: Budesonide/Formoterol 160/4.5 1 PUFF INH IH SCH ×2 (08:02→19:52)
[2019-05-27] MEDS: Isosorbide MONOnitrate (24 HR) 30 MG TAB.ER.24H PO SCH (08:55)
[2019-05-27] MEDS: Gabapentin 300 MG CAPSULE PO SCH ×3 (08:55→20:38)
[2019-05-27] MEDS: Chlorhexidine Rinse 15 ML MOUTHWASH MM SCH ×2 (08:55→20:38)
[2019-05-27] MEDS: Pantoprazole 40 MG VIAL IVP SCH (08:55)
[2019-05-27] MEDS: Metoprolol XL (24 HR) Succ 50 MG TAB.ER.24H PO SCH (08:56)
[2019-05-27] MEDS: FLUoxetine 20 MG CAPSULE PO SCH (08:56)
[2019-05-27] MEDS: Aspirin Enteric Coated 81 MG Tablet PO SCH (08:56)
[2019-05-27] MEDS: amLODIPine 5 MG TABLET PO SCH (08:56)
[2019-05-27] MEDS: Loratadine 10 MG TABLET PO SCH (08:56)
[2019-05-27] MEDS: Insulin DETEMIR 100 UNIT/ML X5UNITS SQ SCH ×2 (08:57→20:38)
[2019-05-27] MEDS: Insulin LISPRO 300 UNITS/3 ML VIAL SQ SCH ×4 (08:57→20:41)
[2019-05-27 15:35] LABS: Bilirubin,Urine Negative (Negative); Blood,Urine Large (Negative); Clarity,Urine Cloudy (Clear); Color,Urine Yellow (Yellow); Glucose,Urine (UA) Normal (Normal); Ketones,Urine Negative (Negative); Leukocyte Esterase,Urine Large (Negative); Nitrite,Urine Negative (Negative); Protein,Urine 100 mg/dL (Neg-Trace); Specific Gravity,Urine 1.014 (1.010-1.025); Urobilinogen,Urine Normal (Normal)
[2019-05-27 15:38] LABS: Bacteria,Urine None Seen per hpf (None-Few); Hyaline Casts,Urine Few per lpf (None-Few); Protein/Creatinine Ratio,Urine 3.37 mg/mg (0.00-0.20); Sodium, Urine 25.6 mEq/L; Squamous Epithelial Cell,Urine Moderate per lpf (None-Few); WBC,Urine TNTC per hpf (0-3)
[2019-05-27 15:51] LABS: RBC,Urine 15-30 per hpf (0-3); Yeast,Urine Many per hpf (None Seen)
[2019-05-28] MEDS: Dexmedetomidine HCl 400 MCG/100 ML MLS IVC SCH ×4 (01:07→21:22)
[2019-05-28] MEDS ORDERED: *HR* Rocuronium Bromide 50 MG/5 ML VIAL IVP ONE ×3 (02:15→09:56)
[2019-05-28] MEDS ORDERED: *HR* Midazolam HCl 5 MG/5 ML VIAL IVP ONE ×2 (02:16→02:19)
[2019-05-28] MEDS: Ipratropium/Albuterol Neb 3 ML IH SCH ×5 (03:28→19:35)
[2019-05-28 04:05] LABS: Retculocyte # 0.06 M/mcL (0.05-0.10); Reticulocyte % 2.3 % (1.6-2.8)
[2019-05-28] MEDS: Artificial Tears SOLN 15 ML BOTTLE BOTH EYES SCH ×6 (04:14→23:32)
[2019-05-28 04:49] LABS: Folate 20.9 ng/mL (3.0-16.0)
[2019-05-28] MEDS: Cefepime HCl 2,000 MG in Water for inj. (sterile) 20 ML IVP SCH (05:00)
[2019-05-28] MEDS: *HR* Enoxaparin 40 MG/0.4 ML SYRINGE SQ SCH (05:01)
[2019-05-28 05:07] LABS: Basophils % 0.1 %; Eosinophils # 1.3 K/mcL (0.0-0.6); Eosinophils % 7.2 %; Hematocrit 25.3 % (37.5-50.1); Immature Granulocytes % 1.3 % (0-4); Lymphocytes # 0.6 K/mcL (0.6-4.6); Lymphocytes % 3.1 %; Mean Corpuscular HGB Conc 31.6 g/dL (31.6-35.5); Mean Corpuscular Hemoglobin 28.3 pg (28.0-33.3); Mean Corpuscular Volume 89.4 fL (83.0-100.0); Mean Platelet Volume 11.9 fL (9.4-12.4); Monocytes # 0.6 K/mcL (0.0-1.3); Monocytes % 3.3 %; Neutrophils # 15.2 K/mcL (1.6-8.9); Platelet Count 166 K/mcL (140-400); Red Blood Count 2.83 M/mcL (4.19-5.50); White Blood Count 17.9 K/mcL (4.3-11.1)
[2019-05-28 05:17] LABS: Calcium 7.6 mg/dL (8.6-10.3)
[2019-05-28] MEDS: Albumin 25% 25gram/100mL 25 GM/100 ML IV.SOLN IVC SCH ×2 (05:18→06:41)
[2019-05-28 05:30] LABS: ABG Base Excess -4 mEq/L (-2 to 3); ABG HCO3 26 mEq/L (21-27); ABG Oxygen Saturation 80 % (95-98); ABG PCO2 87 mmHg (35-45); ABG PH 7.09 pH Units (7.32-7.45); ABG PO2 62 mmHg (85-104); ABG TCO2 29 mEq/L (20-26); Blood Gas Modality AF; Blood Gas VT 450 cc
[2019-05-28] MEDS: Budesonide/Formoterol 160/4.5 1 PUFF INH IH SCH ×2 (07:14→19:34)
[2019-05-28] MEDS: Norepinephrine 4 MG in 0.9 % Sodium Chloride 250 ML IVC SCH ×2 (08:14→14:49)
[2019-05-28] MEDS: Insulin LISPRO 300 UNITS/3 ML VIAL SQ SCH ×5 (08:22→23:31)
[2019-05-28] MEDS: Pantoprazole 40 MG VIAL IVP SCH (08:23)
[2019-05-28] MEDS: MetroNIDAZOLE 500 MG/100 ML 500 MG/100 ML BAG IVPB SCH ×3 (08:23→23:28)
[2019-05-28] MEDS: Insulin DETEMIR 100 UNIT/ML X5UNITS SQ SCH ×2 (08:23→20:39)
[2019-05-28] MEDS: Chlorhexidine Rinse 15 ML MOUTHWASH MM SCH ×2 (08:23→20:39)
[2019-05-28] MEDS: FLUoxetine 20 MG CAPSULE PO SCH (08:24)
[2019-05-28] MEDS: Isosorbide MONOnitrate (24 HR) 30 MG TAB.ER.24H PO SCH (08:24)
[2019-05-28] MEDS: Loratadine 10 MG TABLET PO SCH (08:24)
[2019-05-28] MEDS: Aspirin Enteric Coated 81 MG Tablet PO SCH (08:24)
[2019-05-28] MEDS: Metoprolol XL (24 HR) Succ 50 MG TAB.ER.24H PO SCH (08:24)
[2019-05-28] MEDS: Gabapentin 300 MG CAPSULE PO SCH ×3 (08:24→20:39)
[2019-05-28] MEDS: amLODIPine 5 MG TABLET PO SCH (08:24)
[2019-05-28] MEDS ORDERED: *HR* Rocuronium Bromide 100 MG/10 ML VIAL IVC ONE (10:09)
[2019-05-28] MEDS ORDERED: *HR* Alteplase (Cathflo) 2 MG VIAL IVP PRN (12:08)
[2019-05-28] MEDS ORDERED: 0.9 % Sodium Chloride 1,000 ML PRIME ONE ×2 (12:08)
[2019-05-28 12:11] LABS: ABG Base Excess -5 mEq/L (-2 to 3); ABG HCO3 24 mEq/L (21-27); ABG Oxygen Saturation 98 % (95-98); ABG PCO2 64 mmHg (35-45); ABG PH 7.18 pH Units (7.32-7.45); ABG PO2 126 mmHg (85-104); ABG TCO2 26 mEq/L (20-26); Blood Gas Modality ASSIST CONTROL; Blood Gas VT 450 cc
[2019-05-28] MEDS ORDERED: 0.9 % Sodium Chloride 1,000 ML PRIME SCH (12:15)
[2019-05-28] MEDS ORDERED: *HR* Heparin 5,000 UNIT/ML VIAL ONE (14:21)
[2019-05-28] MEDS: PrismaSATE BGK 4/2.5 5,000 ML CRRT SCH ×6 (16:20→23:28)
[2019-05-29] MEDS: Ipratropium/Albuterol Neb 3 ML IH SCH ×6 (00:40→19:50)
[2019-05-29] MEDS: PrismaSATE BGK 4/2.5 5,000 ML CRRT SCH ×14 (03:07→23:34)
[2019-05-29] MEDS: Norepinephrine 4 MG in 0.9 % Sodium Chloride 250 ML IVC SCH ×2 (03:08→12:15)
[2019-05-29] MEDS: Artificial Tears SOLN 15 ML BOTTLE BOTH EYES SCH ×6 (03:09→23:27)
[2019-05-29] MEDS: Insulin LISPRO 300 UNITS/3 ML VIAL SQ SCH ×6 (03:11→23:27)
[2019-05-29] MEDS: Cefepime HCl 2,000 MG in Water for inj. (sterile) 20 ML IVP SCH ×2 (03:12→16:49)
[2019-05-29 03:30] LABS: Basophils % 0.1 %; Eosinophils # 0.7 K/mcL (0.0-0.6); Eosinophils % 4.8 %; Hematocrit 24.6 % (37.5-50.1); Hemoglobin 7.8 g/dL (12.9-16.9); Immature Granulocytes % 2.4 % (0-4); Lymphocytes # 0.5 K/mcL (0.6-4.6); Lymphocytes % 3.5 %; Mean Corpuscular HGB Conc 31.7 g/dL (31.6-35.5); Mean Corpuscular Hemoglobin 28.1 pg (28.0-33.3); Mean Corpuscular Volume 88.5 fL (83.0-100.0); Mean Platelet Volume 11.5 fL (9.4-12.4); Monocytes # 0.6 K/mcL (0.0-1.3); Neutrophils # 11.8 K/mcL (1.6-8.9); Platelet Count 158 K/mcL (140-400); Red Blood Count 2.78 M/mcL (4.19-5.50); Red Cell Distribution Width 17.8 % (11.5-14.5); Segmented Neutrophils % 85.2 %; White Blood Count 13.9 K/mcL (4.3-11.1)
[2019-05-29 03:50] LABS: Calcium 7.4 mg/dL (8.6-10.3)
[2019-05-29] MEDS: Dexmedetomidine HCl 400 MCG/100 ML MLS IVC SCH (04:48)
[2019-05-29 04:51] LABS: ABG Base Excess -7 mEq/L (-2 to 3); ABG HCO3 27 mEq/L (21-27); ABG Oxygen Saturation 91 % (95-98); ABG PCO2 97 mmHg (35-45); ABG PH 7.05 pH Units (7.32-7.45); ABG PO2 91 mmHg (85-104); ABG TCO2 30 mEq/L (20-26); Blood Gas Modality ASSIST CONTROL; Blood Gas VT 450 cc
[2019-05-29] MEDS ORDERED: *HR* Enoxaparin 30 MG/0.3 ML SYRINGE SQ SCH (06:00)
[2019-05-29] MEDS: MetroNIDAZOLE 500 MG/100 ML 500 MG/100 ML BAG IVPB SCH ×3 (07:45→23:27)
[2019-05-29] MEDS: Insulin DETEMIR 100 UNIT/ML X5UNITS SQ SCH ×2 (07:51→20:14)
[2019-05-29] MEDS: Loratadine 10 MG TABLET PO SCH (08:14)
[2019-05-29] MEDS: Pantoprazole 40 MG VIAL IVP SCH (08:14)
[2019-05-29] MEDS: Gabapentin 300 MG CAPSULE PO SCH ×3 (08:14→20:14)
[2019-05-29] MEDS: Chlorhexidine Rinse 15 ML MOUTHWASH MM SCH ×2 (08:14→20:13)
[2019-05-29] MEDS: FLUoxetine 20 MG CAPSULE PO SCH (08:15)
[2019-05-29] MEDS: Isosorbide MONOnitrate (24 HR) 30 MG TAB.ER.24H PO SCH (08:15)
[2019-05-29] MEDS: amLODIPine 5 MG TABLET PO SCH (08:15)
[2019-05-29] MEDS: Metoprolol XL (24 HR) Succ 50 MG TAB.ER.24H PO SCH (08:15)
[2019-05-29] MEDS: Aspirin Enteric Coated 81 MG Tablet PO SCH (08:15)
[2019-05-29] MEDS: Budesonide/Formoterol 160/4.5 1 PUFF INH IH SCH ×2 (08:18→19:50)
[2019-05-29 12:01] LABS: ABG Base Excess -3 mEq/L (-2 to 3); ABG HCO3 27 mEq/L (21-27); ABG Oxygen Saturation 89 % (95-98); ABG PCO2 81 mmHg (35-45); ABG PH 7.12 pH Units (7.32-7.45); ABG PO2 76 mmHg (85-104); ABG TCO2 29 mEq/L (20-26); Blood Gas Modality AF; Blood Gas VT 550 cc
[2019-05-29] MEDS: Cisatracurium 200 MG in 0.9 % Sodium Chloride 180 ML IVC SCH ×2 (13:58→20:19)
[2019-05-29] MEDS ORDERED: Sodium Bicarbonate 50 MEQ/50 ML VIAL ONE (15:22)
[2019-05-29] MEDS ORDERED: Sodium Bicarbonate 50 MEQ/50 ML VIAL IVP ONE (15:24)
[2019-05-29] MEDS: Norepinephrine 16 MG in 0.9 % Sodium Chloride 500 ML IVC SCH (15:41)
[2019-05-29 16:56] LABS: ABG Base Excess 1 mEq/L (-2 to 3); ABG HCO3 30 mEq/L (21-27); ABG Oxygen Saturation 89 % (95-98); ABG PCO2 85 mmHg (35-45); ABG PH 7.16 pH Units (7.32-7.45); ABG PO2 74 mmHg (85-104); ABG TCO2 33 mEq/L (20-26); Blood Gas Modality AF; Blood Gas VT 550 cc
[2019-05-29 20:15] LABS: ABG Base Excess 2 mEq/L (-2 to 3); ABG HCO3 30 mEq/L (21-27); ABG Oxygen Saturation 88 % (95-98); ABG PCO2 69 mmHg (35-45); ABG PH 7.24 pH Units (7.32-7.45); ABG PO2 66 mmHg (85-104); ABG TCO2 32 mEq/L (20-26); Blood Gas Modality ASSIST CONTROL; Blood Gas VT 550 cc
[2019-05-29] MEDS: *HR* Heparin 5,000 UNIT/ML VIAL SQ SCH (20:58)
[2019-05-29] MEDS ORDERED: *HR* Rocuronium Bromide 50 MG/5 ML VIAL IVP ONE (21:23)
[2019-05-30] MEDS: Ipratropium/Albuterol Neb 3 ML IH SCH ×7 (00:30→23:14)
[2019-05-30] MEDS: Cisatracurium 200 MG in 0.9 % Sodium Chloride 180 ML IVC SCH ×5 (01:01→22:12)
[2019-05-30] MEDS: PrismaSATE BGK 4/2.5 5,000 ML CRRT SCH ×14 (02:54→23:03)
[2019-05-30] MEDS: Cefepime HCl 2,000 MG in Water for inj. (sterile) 20 ML IVP SCH (03:52)
[2019-05-30] MEDS: Insulin LISPRO 300 UNITS/3 ML VIAL SQ SCH ×6 (03:52→23:09)
[2019-05-30] MEDS: Artificial Tears SOLN 15 ML BOTTLE BOTH EYES SCH ×6 (03:52→23:09)
[2019-05-30 04:15] LABS: Basophils % 0.3 %; Eosinophils % 7.4 %; Hematocrit 24.6 % (37.5-50.1); Hemoglobin 7.9 g/dL (12.9-16.9); Immature Granulocytes % 4.2 % (0-4); Lymphocytes # 0.6 K/mcL (0.6-4.6); Lymphocytes % 4.1 %; Mean Corpuscular HGB Conc 32.1 g/dL (31.6-35.5); Mean Corpuscular Volume 87.2 fL (83.0-100.0); Mean Platelet Volume 11.4 fL (9.4-12.4); Monocytes # 0.7 K/mcL (0.0-1.3); Monocytes % 5.1 %; Neutrophils # 11.1 K/mcL (1.6-8.9); Platelet Count 149 K/mcL (140-400); Red Blood Count 2.82 M/mcL (4.19-5.50); Red Cell Distribution Width 18.3 % (11.5-14.5); Segmented Neutrophils % 78.9 %
[2019-05-30 04:35] LABS: BUN/Creatinine Ratio 30 (6-26); Blood Urea Nitrogen 21 mg/dL (8-23); Calcium 7.6 mg/dL (8.6-10.3); Carbon Dioxide 28 mEq/L (23-29); Chloride 104 mEq/L (98-107); Glucose 139 mg/dL (70-105); Osmolality,Calculated 283 (280-300); Potassium 4.2 mEq/L (3.5-5.1); Sodium 134 mEq/L (136-145); eGFR For African Americans > 60 (> 60); eGFR For Non-African Americans > 60 (> 60)
[2019-05-30 04:49] LABS: ABG Base Excess 2 mEq/L (-2 to 3); ABG HCO3 30 mEq/L (21-27); ABG Oxygen Saturation 97 % (95-98); ABG PCO2 72 mmHg (35-45); ABG PH 7.24 pH Units (7.32-7.45); ABG PO2 113 mmHg (85-104); ABG TCO2 33 mEq/L (20-26); Blood Gas Modality ASSIST CONTROL; Blood Gas VT 550 cc
[2019-05-30] MEDS: *HR* Heparin 5,000 UNIT/ML VIAL SQ SCH ×3 (05:14→22:03)
[2019-05-30] MEDS: *HR* Heparin 5,000 UNIT/ML VIAL CRRT PRN (05:15)
[2019-05-30] MEDS: Budesonide/Formoterol 160/4.5 1 PUFF INH IH SCH ×2 (07:51→19:16)
[2019-05-30] MEDS: Pantoprazole 40 MG VIAL IVP SCH (08:33)
[2019-05-30] MEDS: FLUoxetine 20 MG CAPSULE PO SCH (08:33)
[2019-05-30] MEDS: Gabapentin 300 MG CAPSULE PO SCH ×3 (08:33→19:42)
[2019-05-30] MEDS: Loratadine 10 MG TABLET PO SCH (08:33)
[2019-05-30] MEDS: Chlorhexidine Rinse 15 ML MOUTHWASH MM SCH ×2 (08:34→19:42)
[2019-05-30] MEDS: MetroNIDAZOLE 500 MG/100 ML 500 MG/100 ML BAG IVPB SCH (08:34)
[2019-05-30] MEDS: Insulin DETEMIR 100 UNIT/ML X5UNITS SQ SCH ×2 (08:46→19:42)
[2019-05-30] MEDS: Aspirin 81 MG TAB.CHEW GTUBE SCH (08:46)
[2019-05-30] MEDS ORDERED: *HR* Rocuronium Bromide 50 MG/5 ML VIAL IVC ONE (08:59)
[2019-05-30] MEDS ORDERED: Vancomycin 1,750 MG in 0.9 % Sodium Chloride 250 ML IVPB SCH (10:00)
[2019-05-30] MEDS: Doxycycline 100 MG in 0.9 % Sodium Chloride Mini Bag 100 ML IVPB SCH ×2 (11:06→16:51)
[2019-05-30] MEDS: Norepinephrine 16 MG in 0.9 % Sodium Chloride 500 ML IVC SCH (11:31)
[2019-05-30] MEDS: Piperacillin/Tazobactam 3.375 GM in 0.9 % Sodium Chloride Mini Bag 100 ML IVPB SCH ×2 (13:14→22:03)
[2019-05-30] MEDS: MethylPREDNISolone 40 MG/ML VIAL IVP SCH ×2 (16:51→23:03)
[2019-05-31] MEDS: PrismaSATE BGK 4/2.5 5,000 ML CRRT SCH ×12 (02:09→21:14)
[2019-05-31] MEDS ORDERED: *HR* Heparin 5,000 UNIT/ML VIAL ONE (02:46)
[2019-05-31] MEDS: Ipratropium/Albuterol Neb 3 ML IH SCH ×6 (03:08→23:25)
[2019-05-31] MEDS: *HR* Heparin 5,000 UNIT/ML VIAL CRRT PRN (03:57)
[2019-05-31] MEDS: Artificial Tears SOLN 15 ML BOTTLE BOTH EYES SCH ×6 (04:00→23:29)
[2019-05-31] MEDS: Insulin LISPRO 300 UNITS/3 ML VIAL SQ SCH ×6 (04:21→23:29)
[2019-05-31] MEDS: Cisatracurium 200 MG in 0.9 % Sodium Chloride 180 ML IVC SCH (04:38)
[2019-05-31 04:39] LABS: Hematocrit 24.6 % (37.5-50.1); Hemoglobin 7.7 g/dL (12.9-16.9); Mean Corpuscular HGB Conc 31.3 g/dL (31.6-35.5); Mean Corpuscular Hemoglobin 28.1 pg (28.0-33.3); Mean Corpuscular Volume 89.8 fL (83.0-100.0); Mean Platelet Volume 12.3 fL (9.4-12.4); Nucleated Red Blood Cells 0.1 /100 WBC (0); Platelet Count 148 K/mcL (140-400); Red Blood Count 2.74 M/mcL (4.19-5.50); Red Cell Distribution Width 18.6 % (11.5-14.5); White Blood Count 15.2 K/mcL (4.3-11.1)
[2019-05-31 04:55] LABS: ABG Base Excess 1 mEq/L (-2 to 3); ABG HCO3 26 mEq/L (21-27); ABG Oxygen Saturation 92 % (95-98); ABG PCO2 40 mmHg (35-45); ABG PH 7.41 pH Units (7.32-7.45); ABG PO2 63 mmHg (85-104); ABG TCO2 27 mEq/L (20-26); Blood Gas Modality ASSIST CONTROL; Blood Gas VT 550 cc
[2019-05-31 05:01] LABS: BUN/Creatinine Ratio 31 (6-26); Blood Urea Nitrogen 18 mg/dL (8-23); Calcium 7.5 mg/dL (8.6-10.3); Carbon Dioxide 26 mEq/L (23-29); Chloride 102 mEq/L (98-107); Glucose 193 mg/dL (70-105); Osmolality,Calculated 287 (280-300); Potassium 4.9 mEq/L (3.5-5.1); Sodium 135 mEq/L (136-145); eGFR For African Americans > 60 (> 60); eGFR For Non-African Americans > 60 (> 60)
[2019-05-31] MEDS: Doxycycline 100 MG in 0.9 % Sodium Chloride Mini Bag 100 ML IVPB SCH ×2 (05:10→17:51)
[2019-05-31] MEDS: Piperacillin/Tazobactam 3.375 GM in 0.9 % Sodium Chloride Mini Bag 100 ML IVPB SCH ×3 (05:10→20:22)
[2019-05-31] MEDS: *HR* Heparin 5,000 UNIT/ML VIAL SQ SCH ×3 (05:10→20:24)
[2019-05-31 05:22] LABS: Lymphocytes # 0.3 K/mcL (0.6-4.6); Neutrophils # 13.4 K/mcL (1.6-8.9)
[2019-05-31] MEDS: Budesonide/Formoterol 160/4.5 1 PUFF INH IH SCH ×2 (07:39→19:23)
[2019-05-31] MEDS: MethylPREDNISolone 40 MG/ML VIAL IVP SCH ×3 (07:53→23:29)
[2019-05-31] MEDS: Aspirin 81 MG TAB.CHEW GTUBE SCH (07:54)
[2019-05-31] MEDS: Chlorhexidine Rinse 15 ML MOUTHWASH MM SCH ×2 (07:54→20:22)
[2019-05-31] MEDS: Loratadine 10 MG TABLET PO SCH (07:55)
[2019-05-31] MEDS: Pantoprazole 40 MG VIAL IVP SCH (08:30)
[2019-05-31] MEDS: FLUoxetine 20 MG CAPSULE PO SCH (08:41)
[2019-05-31] MEDS: Gabapentin 300 MG CAPSULE PO SCH ×3 (08:41→20:22)
[2019-05-31] MEDS: Insulin DETEMIR 100 UNIT/ML X5UNITS SQ SCH ×2 (08:42→20:23)
[2019-05-31 09:37] LABS: IFE Reflexed IFE Done
[2019-05-31 09:38] LABS: Immunoglobulin A 374 mg/dL (68-408); Immunoglobulin G 1210 mg/dL (768-1632); Immunoglobulin M 29 mg/dL (35-263)
[2019-05-31] MEDS: Dexmedetomidine HCl 400 MCG/100 ML MLS IVC SCH (16:56)
[2019-05-31] MEDS ORDERED: *HR* Rocuronium Bromide 50 MG/5 ML VIAL IVP ONE (19:51)
[2019-05-31] MEDS: Norepinephrine 16 MG in 0.9 % Sodium Chloride 500 ML IVC SCH (20:24)
[2019-06-01] MEDS: PrismaSATE BGK 4/2.5 5,000 ML CRRT SCH ×14 (00:16→21:14)
[2019-06-01] MEDS: Ipratropium/Albuterol Neb 3 ML IH SCH ×5 (03:06→20:20)
[2019-06-01 03:46] LABS: BUN/Creatinine Ratio 26 (6-26); Blood Urea Nitrogen 15 mg/dL (8-23); Calcium 7.8 mg/dL (8.6-10.3); Carbon Dioxide 27 mEq/L (23-29); Chloride 104 mEq/L (98-107); Glucose 181 mg/dL (70-105); Osmolality,Calculated 293 (280-300); Potassium 4.7 mEq/L (3.5-5.1); Sodium 139 mEq/L (136-145); eGFR For African Americans > 60 (> 60); eGFR For Non-African Americans > 60 (> 60)
[2019-06-01 03:53] LABS: Nucleated Red Blood Cells 0.5 /100 WBC (0)
[2019-06-01 03:54] LABS: Basophils # 0.2 K/mcL (0.0-0.2); Basophils % 0.6 %; Eosinophils # 0.1 K/mcL (0.0-0.6); Eosinophils % 0.2 %; Hematocrit 27.1 % (37.5-50.1); Hemoglobin 8.5 g/dL (12.9-16.9); Immature Granulocytes % 10.8 % (0-4); Lymphocytes # 0.7 K/mcL (0.6-4.6); Lymphocytes % 2.7 %; Mean Corpuscular HGB Conc 31.4 g/dL (31.6-35.5); Mean Corpuscular Hemoglobin 28.1 pg (28.0-33.3); Mean Corpuscular Volume 89.4 fL (83.0-100.0); Mean Platelet Volume 12.5 fL (9.4-12.4); Monocytes # 0.8 K/mcL (0.0-1.3); Neutrophils # 22.3 K/mcL (1.6-8.9); Platelet Count 214 K/mcL (140-400); Red Blood Count 3.03 M/mcL (4.19-5.50); Segmented Neutrophils % 82.7 %; White Blood Count 26.9 K/mcL (4.3-11.1)
[2019-06-01 04:13] LABS: ABG Base Excess 2 mEq/L (-2 to 3); ABG HCO3 30 mEq/L (21-27); ABG Oxygen Saturation 92 % (95-98); ABG PCO2 61 mmHg (35-45); ABG PH 7.29 pH Units (7.32-7.45); ABG PO2 73 mmHg (85-104); ABG TCO2 32 mEq/L (20-26); Blood Gas Modality ASSIST CONTROL; Blood Gas VT 520 cc
[2019-06-01] MEDS: Artificial Tears SOLN 15 ML BOTTLE BOTH EYES SCH ×5 (04:28→20:28)
[2019-06-01] MEDS: Insulin LISPRO 300 UNITS/3 ML VIAL SQ SCH ×5 (04:30→20:29)
[2019-06-01] MEDS ORDERED: Piperacillin/Tazobactam 3.375 GM VIAL ONE (05:07)
[2019-06-01 05:08] LABS: Anisocytosis 1+ (Not Present); Hypochromasia Present (Not Present); Polychromasia 1+ (Not Present)
[2019-06-01] MEDS: Doxycycline 100 MG in 0.9 % Sodium Chloride Mini Bag 100 ML IVPB SCH ×2 (05:08→17:57)
[2019-06-01] MEDS: *HR* Heparin 5,000 UNIT/ML VIAL SQ SCH ×3 (05:08→21:13)
[2019-06-01 05:09] LABS: Platelet Estimate Normal (Normal)
[2019-06-01] MEDS: Piperacillin/Tazobactam 3.375 GM in 0.9 % Sodium Chloride Mini Bag 100 ML IVPB SCH ×3 (05:09→21:13)
[2019-06-01] MEDS: Pantoprazole 40 MG VIAL IVP SCH (07:33)
[2019-06-01] MEDS: MethylPREDNISolone 40 MG/ML VIAL IVP SCH ×3 (07:33→17:57)
[2019-06-01] MEDS: Chlorhexidine Rinse 15 ML MOUTHWASH MM SCH ×2 (07:33→20:27)
[2019-06-01] MEDS: Gabapentin 300 MG CAPSULE PO SCH ×3 (07:34→20:27)
[2019-06-01] MEDS: Loratadine 10 MG TABLET PO SCH (07:34)
[2019-06-01] MEDS: Aspirin 81 MG TAB.CHEW GTUBE SCH (07:34)
[2019-06-01] MEDS: FLUoxetine 20 MG CAPSULE PO SCH (07:34)
[2019-06-01] MEDS: Insulin DETEMIR 100 UNIT/ML X5UNITS SQ SCH ×2 (07:40→20:31)
[2019-06-01] MEDS: Budesonide/Formoterol 160/4.5 1 PUFF INH IH SCH ×2 (07:56→20:20)
[2019-06-01] MEDS: Dexmedetomidine HCl 400 MCG/100 ML MLS IVC SCH ×2 (11:20→22:24)
[2019-06-01] MEDS: Norepinephrine 16 MG in 0.9 % Sodium Chloride 500 ML IVC SCH (22:19)
[2019-06-02] MEDS: MethylPREDNISolone 40 MG/ML VIAL IVP SCH (00:06)
[2019-06-02] MEDS: Insulin LISPRO 300 UNITS/3 ML VIAL SQ SCH ×5 (00:06→16:05)
[2019-06-02] MEDS: Artificial Tears SOLN 15 ML BOTTLE BOTH EYES SCH ×5 (00:06→16:05)
[2019-06-02] MEDS: Ipratropium/Albuterol Neb 3 ML IH SCH ×5 (00:51→15:54)
[2019-06-02] MEDS: PrismaSATE BGK 4/2.5 5,000 ML CRRT SCH ×8 (00:57→11:21)
[2019-06-02 05:05] LABS: Mean Platelet Volume 12.5 fL (9.4-12.4)
[2019-06-02 05:06] LABS: Hematocrit 29.6 % (37.5-50.1); Mean Corpuscular HGB Conc 30.4 g/dL (31.6-35.5); Mean Corpuscular Hemoglobin 28.3 pg (28.0-33.3); Mean Corpuscular Volume 93.1 fL (83.0-100.0); Nucleated Red Blood Cells 5.2 /100 WBC (0); Platelet Count 236 K/mcL (140-400); Red Blood Count 3.18 M/mcL (4.19-5.50); Red Cell Distribution Width 20.9 % (11.5-14.5)
[2019-06-02 05:22] LABS: BUN/Creatinine Ratio 27 (6-26); Blood Urea Nitrogen 16 mg/dL (8-23); Carbon Dioxide 26 mEq/L (23-29); Chloride 100 mEq/L (98-107); Glucose 193 mg/dL (70-105); Osmolality,Calculated 282 (280-300); Potassium 4.5 mEq/L (3.5-5.1); Sodium 133 mEq/L (136-145); eGFR For African Americans > 60 (> 60); eGFR For Non-African Americans > 60 (> 60)
[2019-06-02] MEDS: methylPREDNISolone 125 MG/2 ML VIAL IVP SCH ×2 (05:24→11:57)
[2019-06-02] MEDS: Doxycycline 100 MG in 0.9 % Sodium Chloride Mini Bag 100 ML IVPB SCH (05:24)
[2019-06-02] MEDS: *HR* Heparin 5,000 UNIT/ML VIAL SQ SCH ×2 (05:24→14:03)
[2019-06-02] MEDS: Piperacillin/Tazobactam 3.375 GM in 0.9 % Sodium Chloride Mini Bag 100 ML IVPB SCH ×2 (05:25→14:03)
[2019-06-02 05:40] LABS: Lymphocytes # 3.3 K/mcL (0.6-4.6); Monocytes # 0.7 K/mcL (0.0-1.3)
[2019-06-02 05:41] LABS: Platelet Estimate Normal (Normal); Poikilocytosis 1+ (Not Present)
[2019-06-02 05:42] LABS: Anisocytosis 1+ (Not Present)
[2019-06-02 06:03] LABS: ABG Base Excess 1 mEq/L (-2 to 3); ABG HCO3 27 mEq/L (21-27); ABG Oxygen Saturation 99 % (95-98); ABG PCO2 47 mmHg (35-45); ABG PH 7.36 pH Units (7.32-7.45); ABG PO2 150 mmHg (85-104); ABG TCO2 28 mEq/L (20-26); Blood Gas Modality ASSIST CONTROL; Blood Gas VT 520 cc
[2019-06-02] MEDS: Budesonide/Formoterol 160/4.5 1 PUFF INH IH SCH (07:28)
[2019-06-02] MEDS: Gabapentin 300 MG CAPSULE PO SCH ×2 (08:52→14:03)
[2019-06-02] MEDS: Loratadine 10 MG TABLET PO SCH (08:52)
[2019-06-02] MEDS: Aspirin 81 MG TAB.CHEW GTUBE SCH (08:52)
[2019-06-02] MEDS: Chlorhexidine Rinse 15 ML MOUTHWASH MM SCH (08:53)
[2019-06-02] MEDS: Pantoprazole 40 MG VIAL IVP SCH (08:53)
[2019-06-02] MEDS: FLUoxetine 20 MG CAPSULE PO SCH (08:55)
[2019-06-02] MEDS: Insulin DETEMIR 100 UNIT/ML X5UNITS SQ SCH (08:55)
[2019-06-02] MEDS: Norepinephrine 16 MG in 0.9 % Sodium Chloride 500 ML IVC SCH (10:30)
[2019-06-02] MEDS: Cisatracurium 200 MG in 0.9 % Sodium Chloride 180 ML IVC SCH (11:57)
[2019-06-02] MEDS ORDERED: *HR* Atropine Sulfate 1 MG/10 ML SYRINGE ONE (16:55)
[2019-06-02] MEDS ORDERED: Ascorbic Acid 500 MG TABLET PO SCH (17:00)
[2019-06-02] MEDS ORDERED: Aminoglycoside Consult 1 EACH MC ONE (17:04)
[2019-06-02 17:23] VITALS: BP 92/40
[2019-06-03] MEDS ORDERED: Thiamine (B-1) 100 MG TABLET PO SCH (09:00)
[2019-06-03] MEDS ORDERED: Ascorbic Acid 500 MG TABLET PO SCH (09:00)
== END 2019-06-02 17:05 | disposition expired | DRG 870 ==
LOC: 2ANU 07:36 → EMEROOARM 07:36 → 2ANU 10:02 → SUATTDRO 10:48 → 2NNU 12:59 → ICNU 05-25 09:08
PROVIDERS: ADMIT Internal Medicine; ATTEND Family Medicine